=== PATIENT | male | born 1955 | race Caucasian/White ===

== ENCOUNTER → 2024-03-16 11:20 | Outpatient (REF) | payer OTHER, SELFPAY | LOC: RAD 11:20 | PROVIDERS: ATTENDING PHYSICIAN Family Medicine | DX: R29.6 Repeated falls (principal) | CPT/HCPCS: 70470; Q9967 ==

== ENCOUNTER 2024-03-27 17:18 | Emergency (ER) | payer OTHER, SELFPAY ==
[2024-03-27 17:50] VITALS: BP 131/90
[2024-03-27 18:31] LABS: % Basophils 0.3 % (0-2); % Eosinophils 0.5 % (0-6); % Immature Granulocytes 0.8 % (0-0.5); % Lymphocytes 5.3 % (20.5-51.1); % Monocytes 5.8 % (1.7-9.3); % Neutrophils 87.3 % (42.2-75.2); Absolute Immature Granulocytes 0.1 10^3/uL (0-0.05); Absolute Lymphocytes 0.5 10^3/uL (1.2-3.4); Absolute Monocytes 0.5 10^3/uL (0.1-0.6); Absolute Neutrophils 7.6 10^3/uL (1.4-6.5); Hematocrit 36.6 % (39.0-52.0); Hemoglobin 11.9 g/dL (13.0-18.0); Mean Corp Hgb Conc. 32.5 g/dL (33.0-37.0); Mean Corpuscular Hgb 30.1 pg (27.0-31.0); Mean Corpuscular Volume 92.4 fL (80.0-94.0); Mean Platelet Volume 8.9 fL (7.4-10.4); Nucleated Red Blood Cells % 0 % (-); Platelet Count 218 10^3/uL (130-400); Red Blood Cell Count 3.96 10^6/uL (4.70-6.10); Red Cell Dist. Width 12.7 % (11.5-14.5); White Blood Cell Count 8.7 10^3/uL (4.8-10.8)
[2024-03-27 18:46] LABS: ALT (SGPT) 18 U/L (0-50); AST (SGOT) 23 U/L (17-59); Albumin 4.3 g/dl (3.5-5.0); Alkaline Phosphatase 100 U/L (38-126); Blood Urea Nitrogen 15 mg/dl (9-20); Calcium 9.5 mg/dl (8.4-10.2); Carbon Dioxide 27 mmol/L (22-30); Chloride 96 mmol/L (98-107); Glucose 127 mg/dl (70-99); Sodium 136 mmol/L (135-145); Total Bilirubin 0.5 mg/dl (0.2-1.3); Total Protein 6.8 g/dl (6.3-8.2); eGFR > 60.00
--- NOTE | 2024-03-27 23:40 | ED.GENMED ---
History of Present Illness
General
Chief Complaint: Fall
Source: patient
Exam Limitations: none
Time Seen by Provider: 03/27/24 23:30
Travel History
Have you had any contact with someone who has COVID-19?: No
Do you have any symptoms of coronavirus? Fever > 100 degrees, chills, cough, shortness of breath, sore throat, loss of taste or smell, muscle aches, or headache?: No
History of Present Illness
History of Present Illness:
This is a 69 year old male that comes in with c/o fall. States that he has fallen twice today. States that this has been going on for the past 3-6 months and they haven't decided why. States that the first time he fell in the driveway and the police
came and go him up. States that the second time he fell he hit his head. States that he was on the sidewalk heading to the driveway. Denies any LOC. States that he has right sided rib pain with some SOB when he takes a deep breath. States that he
chronically has diarrhea and wears oxygen at home.. States that he has a headache and urinary burning. . Denies any fever, chills, abd pain, nausea, vomiting, dizziness.
Past History
Past History
ED Past Medical History: Arrthythmia (Atrial fib), CAD, CHF, COPD, GERD, HTN, Hypercholesterolemia, NIDDM (Diet controlled), [place] (Non-STEMI December 2019) and Other (Back pain, Headaches, Sleep apnea, IBS, Pancreatitis, Ulcers, Gastritis, Anemia, )
ED Past Surgical History: Cardiac (CABG, PTCA with stent), Cholecystectomy (January 2016), Orthopedic (Right wrist surgery), Tonsilectomy and Other (hernia repair, endovascular AAA with bilateral femoral endarterectomy and profundoplasty 07/2018)
Social History
Tobacco: Former smoker
Alcohol: None
Drug: None
Personal: Single
Living: alone
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
Family History
Family History: Hypertension
Review of Systems
Review of Systems
All Other Systems: ROS reviewed and negative except as documented in HPI and ROS
Constitutional: Reports no symptoms; Denies fever or chills
EENT: Reports no symptoms
Respiratory: Reports trouble breathing and other (Right sided rib pain); Denies cough
Cardiac: Denies chest pain
ABD/GI: Reports diarrhea (Chronic); Denies abdominal pain, nausea or vomiting
: Reports dysuria; Denies frequency or urgency
Musculoskeletal: Reports no symptoms
Skin: Reports other (abrasion both knee's)
Neurological: Reports headache; Denies dizzy
Psychiatric: Reports no symptoms
Phy Exam
General Physical Exam
General Presentation: no apparent distress
General age: appears stated age
General Skin: warm and dry
General Habitus: elderly
General Mental: alert
General Hydration: appears well hydrated
ENT Exam
ENT Exam: TM's normal, pharynx normal and neck supple
Eye Exam
Eye Exam: EOMI
Cardiovascular Exam
Cardiovascular Exam: regular rate/rhythm
Pulmonary Exam
Pulmonary Exam: no respiratory distress, no rales, no crackles, no rhonchi, no wheezing, decreased breath sounds and other (Occasional dry cough noted Right sided chest tender just below the axilla)
Musculoskeletal Exam
Musculoskeletal Exam: full ROM and other (Negative for cervical neck tenderness or shoulder discomfort. Right lateral rib tenderness. Negative for any discomfort with flexion or straightening of the knee's)
Skin Exam
Skin Exam: normal color, warm/dry, no petechia and other (Bilateral skin abrasion to both knees with contusion, Contusion noted on the right sided of the lower face next to the mouth. Old)
Psychiatric Exam
Psychiatric Exam: normal mood/affect
Course
Orders/Labs/Results
Orders:
Orders
03/27/24 17:49
CT Head W/o Iv Contrast Urgent
Comment:
Reason For Exam: fall, head strike. No loc. no thinners.
03/27/24 18:00
Electrocardiogram (*1) Urgent
Reason for Study: Fatigue / Weakness
EKG- Treatment ONCE
03/27/24 18:12
Complete Blood Count/With Diff Urgent
Comprehensive Metabolic Panel Urgent
03/27/24 23:40
Urinalysis Reflex To Culture Urgent
Date Specimen was Collected: 03/28/24
Time Specimen was Collected: 00:01
Ribs, Right 3 View W/PA Chest [CR Ribs-right 3 Vw W/pa Chest*] Urgent
Comment:
Reason For Exam: rIGHT SIDED RIB PAIN, fALL
03/28/24 00:16
Urine Microscopic Reflex Cult Urgent
Urine Culture Urgent
FLYNN Source: U
Specimen Description:
Date Specimen was Collected: 03/28/24
Time Specimen was Collected: 00:01
03/28/24 00:27
Potassium Chloride Powder [Klor-Con] 40 meq PO NOW STA
Abnormal Lab Results
03/27/24 03/28/24
18:12 00:16
RBC 3.96 L 10^6/uL
(4.70-6.10)
Hgb 11.9 L g/dL
(13.0-18.0)
Hct 36.6 L %
(39.0-52.0)
MCHC 32.5 L g/dL
(33.0-37.0)
Abs Immat Gran (auto) 0.1 H 10^3/uL
(0-0.05)
Absolute Neuts (auto) 7.6 H 10^3/uL
(1.4-6.5)
Absolute Lymphs (auto) 0.5 L 10^3/uL
(1.2-3.4)
Immature Gran % 0.8 H %
(0-0.5)
Neutrophils % 87.3 H %
(42.2-75.2)
Lymphocytes % 5.3 L %
(20.5-51.1)
Potassium 3.0 L mmol/L
(3.5-5.1)
Chloride 96 L mmol/L
(98-107)
Glucose 127 H mg/dl
(70-99)
Urine Ketones Trace A
(Negative)
Ur Occult Blood Reflex 2+ A
(Negative)
Leukocyte Esterase Rfl 2+ A
(Negative)
Urine RBC 26-30 A /HPF
(0-2)
Urine WBC (Reflex) 50-60 A /HPF
(0-5)
Urine Bacteria (Reflex) Moderate A
(Negative)
03/27/24 18:12
03/27/24 18:12
H/H slightly low (increased from prior labs), hypokalemia. Chloride low. Glucose nonfasting.
Urine positive for UTI.
Vital Signs
Initial and Last Documented VS:
Initial Vital Signs
Temp Pulse Resp BP Pulse Ox
98.2 F 100 16 131/90 95
03/27/24 17:50 03/27/24 17:50 03/27/24 17:50 03/27/24 17:50 03/27/24 17:50
Last Documented Vital Signs
Temp Pulse Resp BP Pulse Ox
98.2 F 94 20 145/98 100
03/27/24 17:50 03/28/24 00:26 03/28/24 00:26 03/28/24 00:26 03/28/24 00:26
MDM/Problems Addressed
Differential Diagnosis Includes:
Frequent falls, Contusions, Rib fracture
MDM/Problems Addressed:
This is a 69 year old male that comes in with c/o fall. States that he fell twice today. States that his falling has been going on for the past 3-6 months and they don't know why. States that the police got him up th first time and the second time
he hit his head.
Will check labs. Urine, CT head and rib series.
Back to see patient. Explained that there are no rib fracture that this is most likely a contusion. Awaiting the urine and will also get patient up with his walker and make sure patient is stable on his feet.
Patient was able to walk with his walker and was stable. Urine is positive for infection. Will treat with Monurol. Patient to follow up with his repair table operator tomorrow and he had an appointment with the PCP on Wednesday. Patient to return with any
concerns.
Chronic conditions affecting care:
Frequent falls
Acute Exacerbation and/or Progression of Chronic Illness:
Frequent falls
*Radiology
Radiology exam reviewed: radiology read reviewed (CT head-NO acute intracranial abnormality noted. Moderate Periventricular small vessel seen disease. Stable. Mild atrophy. Stable. Ribs-No acute disease of the chest. NO acute rib fractures
identified. )
*Pulse Oximetry
Patient hypoxic: no
*EKG
Interpreted by ED Provider?: NA
Rate: EKG- N/A
*Lamp Inspector Interpretation
Rate: Lamp Inspector- N/A
*Critical Care Note
Total Time (30-74mins, 75-104mins- exclusive of procedures): Not Applicable
ED Attending Note
-
Portions of this chart may have been created with voice recognition software.� Occasional wrong word or��sound alike� substitutions may have occurred due to the inherent limitations of voice recognition software.
Discharge Plan
Departure
Patient Disposition: Home (Routine Discharge)
Date of Disposition: 03/28/24
Time of Disposition: 00:59
Patient with high blood pressure during this ER visit?: Yes
Condition: Good
Covid-19: Not Applicable
Discharge Problem:
Accidental fall, Abrasion of knee, bilateral, Urinary tract infection
Instructions: Preventing falls in adults, Skin Abrasions (DC), BLOOD PRESSURE, Urinary Tract Infection - Men
Prescriptions:
No Action
fluoxetine 40 mg Capsule
80 mg PO DAILY
fluticasone propion-salmeterol [Advair Diskus] 250-50 mcg/dose Blister With Device
1 inh INHALATION R BID
ipratropium-albuterol 0.5 mg-3 mg(2.5 mg base)/3 mL Solution For Nebulization
3 ml INHALATION R QIDPRN PRN (Reason: SOB)
lidocaine 5 % Adhesive Patch,Medicated
1 patch TOPICAL DAILY
Rx Instructions:
07/02/2023, patient wears the patch 12 hrs on and 12 hrs off; patient is currently not wearing the patch.
albuterol sulfate 90 mcg/actuation Hfa Aerosol Inhaler
2 puff INHALATION R Q6HPRN PRN (Reason: SOB)
aripiprazole 10 mg Tablet
10 mg PO DAILY
tamsulosin 0.4 mg Capsule
0.4 mg PO DAILY
dicyclomine 10 mg Capsule
10 mg PO QID
magnesium chloride 64 mg Tablet,Delayed Release (Dr/Ec)
128 mg PO DAILY
atorvastatin 80 MG tablet
80 mg PO DAILY
pantoprazole 40 MG tablet,delayed release (DR/EC)
40 mg PO DAILY
budesonide 0.5 mg/2 mL Suspension For Nebulization
0.5 mg inhalation R BID Qty: 60 0RF
lorazepam 0.5 mg Tablet
0.5 mg PO DAILYPRN PRN (Reason: sleep/anxiety) Qty: 2 0RF
aspirin [Children's Aspirin] 81 mg Tablet,Chewable
81 mg PO DAILY Qty: 1 0RF
prednisone 20 mg Tablet
40 mg PO DAILY Qty: 1 0RF
Rx Instructions:
Taper by 10mg every 2 days to his baseline of 10mg
carvedilol 6.25 mg Tablet
6.25 mg PO BID Qty: 1 0RF
Rx Instructions:
dose decreased on this admission
furosemide 40 mg Tablet
40 mg PO DAILY Qty: 1 0RF
insulin aspart U-100 [Novolog FlexPen U-100 Insulin] 100 unit/mL (3 mL) Insulin Pen
4 unit SC AC Qty: 15 0RF
amoxicillin-pot clavulanate 875-125 mg tablet
1 tab PO BID Qty: 4 0RF
Rx Instructions:
for 2 more days
prednisone 10 MG tablet
10 mg PO DAILY Qty: 0 0RF
Rx Instructions:
once done with steroid taper
insulin glargine [Lantus U-100 Insulin] 100 unit/mL Solution
20 unit SC QPM Qty: 0 0RF
azithromycin 250 MG tablet
250 mg PO DAILY Qty: 0 0RF
Rx Instructions:
once done with augmentin
tramadol 50 mg Tablet
25 mg PO Q6HPRN PRN (Reason: MODERATE PAIN) Qty: 5 0RF
Activity Restrictions/Additional Instructions:
As discussed, your blood work shows that your potassium is low. You have been given oral potassium here. Please eat a daily banana. Please follow up with the family doctor for recheck. Please keep your abrasion clean with warm soapy water. You may
also apply bacitracin to the wounds. Ice to any area that is sore. Tylenol 1000mg every 6 hours for any discomfort. You also have a urinary tract infection. You have been given an antibiotic here that is a one time dose that will treat the UTI.
Please increase your water intake to 8-8oz glasses daily. IF YOU HAVE HEADACHE NOT RELIEVED BY TYLENOL, VOMITING MORE THEN TWICE OR YOU HAVE ANY OTHER CONCERNS PLEASE RETURN TO THE EMERGENCY ROOM.
Interventions
Interventions:
ED- Fall Risk Assessment Last Done: 03/28/24 00:26
*ED COVID-19 Vaccine History Last Done: 03/27/24 17:50
ED-Musculoskeletal Assessment Last Done: 03/28/24 00:26
ED- Neurological Assessment Last Done: 03/28/24 00:26
ED-Skin Assessment Last Done: 03/28/24 00:26
Discharge Date and Time
Print Language: [place] CITIZEN
[2024-03-28 00:26] VITALS: BP 145/98
[2024-03-28 00:26] LABS: Urine Albumin Trace (Neg - Trace); Urine Bilirubin Negative (Negative); Urine Character Slightly Cloudy (Clear); Urine Color Yellow; Urine Glucose Negative (Negative); Urine Ketone Trace (Negative); Urine Leukocyte 2+ (Negative); Urine Nitrite Negative (Negative); Urine Occult Blood 2+ (Negative); Urine Urobilinogen Negative (Neg - 1+)
--- NOTE | 2024-03-28 00:28 | EDRN ---
patient brought back from waiting room, apologized for long wait, re-checked patients vitals, patient also on o2 normally, replaced o2 tank as it was almost empty, assisted patient to going to the bathroom to collect urine specimen which was emptied
[2024-03-28 00:48] LABS: Urine Red Blood Cell 26-30 /HPF (0-2); Urine White Cell 50-60 /HPF (0-5)
[2024-03-28 00:49] LABS: Urine Bacteria Moderate (Negative)
--- NOTE | 2024-03-28 01:00 | EDRN ---
Patient was able to ambulate with the use of a walker which is what he dose at home, reports slight weakness with this however that is normal for him, BRENTON Storey aware, patient to be discharged home.
[2024-03-28] MEDS: MONUROL 3 GM PO (01:10)
[2024-03-28] MEDS: KLOR-CON 40 MEQ PO (01:10)
== END 2024-03-28 01:39 | disposition home or self-care (01) ==
LOC: EMR 17:18
PROVIDERS: Clinical Nurse Specialist Family Health; Emergency Medicine; EMERGENCY PHYSICIAN Emergency Medicine; FAMILY PHYSICIAN Family Medicine
DX: S00.83XA Contusion of other part of head, initial encounter (principal); N39.0 Urinary tract infection, site not specified; S80.211A Abrasion, right knee, initial encounter; S80.212A Abrasion, left knee, initial encounter; R51.9 Headache, unspecified; R30.0 Dysuria; R53.1 Weakness; R19.7 Diarrhea, unspecified; R07.81 Pleurodynia; W18.30XA Fall on same level, unspecified, initial encounter; Y93.01 Activity, walking, marching and hiking; Y92.480 Sidewalk as the place of occurrence of the external cause; E87.6 Hypokalemia; I11.0 Hypertensive heart disease with heart failure; I50.9 Heart failure, unspecified; I48.91 Unspecified atrial fibrillation; I25.10 Atherosclerotic heart disease of native coronary artery without angina pectoris; G47.30 Sleep apnea, unspecified; E78.00 Pure hypercholesterolemia, unspecified; E11.9 Type 2 diabetes mellitus without complications; J44.9 Chronic obstructive pulmonary disease, unspecified; K21.9 Gastro-esophageal reflux disease without esophagitis; K58.0 Irritable bowel syndrome with diarrhea; D64.9 Anemia, unspecified; I25.2 Old myocardial infarction; Z99.81 Dependence on supplemental oxygen; R29.6 Repeated falls; Z95.1 Presence of aortocoronary bypass graft; Z95.5 Presence of coronary angioplasty implant and graft; Z87.11 Personal history of peptic ulcer disease; Z87.891 Personal history of nicotine dependence; Z90.49 Acquired absence of other specified parts of digestive tract
CPT/HCPCS: 99285; 70450; 71101; 80053; 81003; 81015; 85025; 87077; 87086; 93005

== ENCOUNTER → 2024-07-28 14:18 | Outpatient (REF) | payer OTHER, SELFPAY | LOC: PAVMRI 14:18 | PROVIDERS: ATTENDING PHYSICIAN Specialist; FAMILY PHYSICIAN Family Medicine | DX: R42 Dizziness and giddiness (principal); R29.6 Repeated falls | CPT/HCPCS: 70544; 70547; 70551 ==

== ENCOUNTER → 2024-08-25 10:10 | Outpatient (REF) | payer OTHER, SELFPAY | LOC: RAD 10:10 | PROVIDERS: ATTENDING PHYSICIAN Specialist; FAMILY PHYSICIAN Internal Medicine Critical Care Medicine | DX: I65.21 Occlusion and stenosis of right carotid artery (principal) | CPT/HCPCS: 76770; 93880; 93922; 93925 ==

== ENCOUNTER 2024-12-05 11:38 | Inpatient (IN) | payer OTHER, SELFPAY ==
[2024-12-05] VITALS (11 sets, daily range): BP systolic 119–182; BP diastolic 83–99; PULSE 97; O2SAT 100
--- NOTE | 2024-12-05 07:06 | ED.GENMED ---
History of Present Illness
General
Chief Complaint: Fall
Source: patient and ambulance crew
Exam Limitations: none
Time Seen by Provider: 12/05/24 07:04
Nursing documentation reviewed up to this point in time: agreed with
History of Present Illness
History of Present Illness:
69-year-old male with history as documented notable for hypertension, hyperlipidemia, CAD, CHF, atrial fibrillation, COPD who presents to the emergency department from home for evaluation after a fall. Patient reports that he got up to go to the
bathroom this morning and lost his balance and fell. He did think he hit his head but did not pass out he says. He complains of pain in his right elbow but denies any other serious injuries. He says he was too weak to stand up and called EMS
initially for a lift assist�per EMS report when they lifted him he was too weak to even stand and so they brought him to the ER. He does admit he has been feeling more weak than usual recently. He says he had another fall 2 days ago in the kitchen
but no serious injuries at that point and his [id number] was able to help him up. He has not noticed any fever, cough, breathing troubles, abdominal pains, urinary issues. He says he is on aspirin but no other blood thinners.
Past History
Past History
ED Past Medical History: Arrthythmia (Atrial fib), CAD, CHF, COPD, GERD, HTN, Hypercholesterolemia, NIDDM (Diet controlled), [place] (Non-STEMI December 2019) and Other (Back pain, Headaches, Sleep apnea, IBS, Pancreatitis, Ulcers, Gastritis, Anemia, )
ED Past Surgical History: Cardiac (CABG, PTCA with stent), Cholecystectomy (January 2016), Orthopedic (Right wrist surgery), Tonsilectomy and Other (hernia repair, endovascular AAA with bilateral femoral endarterectomy and profundoplasty 07/2018)
Social History
Tobacco: Former smoker
Alcohol: None
Drug: None
Personal: Single
Living: alone
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
Family History
Family History: Hypertension
Review of Systems
Review of Systems
All Other Systems: ROS reviewed and negative except as documented in HPI and ROS
Constitutional: Reports fatigue; Denies fever or chills
Cardiac: Denies chest pain or palpitations
ABD/GI: Denies abdominal pain, nausea or vomiting
: Denies dysuria or flank pain
Musculoskeletal: Reports joint pain (Right elbow pain); Denies neck pain or back pain
Neurological: Denies headache, weakness or numbness
Phy Exam
Physical Exam
Physical Exam:
General: Awake, alert, oriented x3; no acute distress
Head: Normocephalic, atraumatic
Eyes: Conjunctiva normal, EOMI, pupils equal round and reactive to light bilaterally
Throat: Airway intact, handling secretions
Neck: Trachea midline, mild paraspinal tenderness but no midline cervical tenderness
Back: No signs of trauma to the back or flank and no tenderness of the thoracic or lumbar spine
Lungs: Clear to auscultation bilaterally, no wheezing, rales, rhonchi
Heart: Tachycardia with regular rhythm, no murmurs, gallops, or rubs; no chest wall tenderness
Abd: Soft, non distended, nontender
Neuro: No gross deficits�although he is generally weak strength is symmetric in all extremities
Skin: Minor bruise to the right elbow
Extremities: Bruise to the right elbow and mild tenderness along the lateral aspect of the elbow but good range of motion, no joint effusion; rest of extremities are atraumatic, nontender, moving comfortably and he has good pulses throughout
Scores
Heart Failure Risk
Heart Failure Risk Score: Not Applicable
Heart Score for Chest Pain Patients
STEMI patient?: Not applicable
Withdrawal Assessment of Alcohol
Withdrawal Assessment Completed?: Not applicable
Sepsis
Sepsis Screening
Sepsis Assessment: Severe Sepsis
Sepsis Screening: Lactate >2mmol/L
Sepsis Screen
Sepsis Screen: Severe Sepsis
Date: 12/05/24
Time: 09:27
Course
Orders/Labs/Results
Orders:
Orders
12/05/24 07:02
Electrocardiogram (*1) Urgent
Reason for Study: Fatigue / Weakness
EKG- Treatment ONCE
12/05/24 07:04
CT Cervical Spine W/o Iv Contr Urgent
Comment:
Reason For Exam: fall with headstrike
CT Head W/o Iv Contrast Urgent
Comment:
Reason For Exam: fall with headstrike
12/05/24 07:05
0.9% Sodium Chloride 1000 ml [Nss] 1,000 ml IV BOLUS
CR Elbow - Right Min 3 Views Urgent
Comment:
Reason For Exam: right elbow pain s/p fall
12/05/24 07:13
0.9% Sodium Chloride 250 ml [Nss] 250 ml IV BOLUS
12/05/24 07:14
CMP [Comprehensive Metabolic Panel] Urgent
CPK [Creatine Phosphokinase] Urgent
Complete Blood Count/With Diff Urgent
Urinalysis Reflex To Culture Urgent
Date Specimen was Collected: 12/05/24
Time Specimen was Collected: 07:02
Urine Microscopic Reflex Cult Urgent
Urine Culture Urgent
FLYNN Source: U
Specimen Description:
Date Specimen was Collected: 12/05/24
Time Specimen was Collected: 07:02
CR Chest Portable - 1 View Urgent
Comment:
Reason For Exam: weakness, eval for pna
Reason Study Needs to be Portable: Unable to Transport
12/05/24 07:25
COVID-19 Antigen Urgent
Source: Nasal Swab
Lactate Level [Lactic Acid] Urgent
Influenza A+B Rapid Molecular Urgent
FLYNN Source: Nasal Swab
Specimen Description:
12/05/24 07:34
Blood Culture Q30M
FLYNN Source: Blood/Venous
Specimen Description:
12/05/24 07:52
Blood Culture Q30M
FLYNN Source: Blood/Venous
Specimen Description:
12/05/24 08:46
CefTRIAXone [Rocephin] 1,000 mg IV NOW STA
12/05/24 08:48
0.9% Sodium Chloride 250 ml [Nss] 250 ml IV BOLUS
12/05/24 09:23
0.9% Sodium Chloride 250 ml [Nss] 250 ml IV BOLUS
Abnormal Lab Results
12/05/24 12/05/24
07:14 07:25
WBC 14.5 H 10^3/uL
(4.8-10.8)
RBC 4.64 L 10^6/uL
(4.70-6.10)
MCHC 32.2 L g/dL
(33.0-37.0)
Abs Immat Gran (auto) 0.2 H 10^3/uL
(0-0.05)
Absolute Neuts (auto) 11.8 H 10^3/uL
(1.4-6.5)
Absolute Lymphs (auto) 0.8 L 10^3/uL
(1.2-3.4)
Absolute Monos (auto) 1.7 H 10^3/uL
(0.1-0.6)
Immature Gran % 1.5 H %
(0-0.5)
Neutrophils % 81.1 H %
(42.2-75.2)
Lymphocytes % 5.2 L %
(20.5-51.1)
Monocytes % 11.8 H %
(1.7-9.3)
Chloride 91 L mmol/L
(98-107)
Carbon Dioxide 31 H mmol/L
(22-30)
BUN 39 H mg/dl
(9-20)
Glucose 191 H mg/dl
(70-99)
Lactic Acid 2.4 H mmol/L
(0.7-2.0)
Ur Occult Blood Reflex 3+ A
(Negative)
Leukocyte Esterase Rfl 3+ A
(Negative)
Urine RBC 3-6 A /HPF
(0-2)
Urine WBC (Reflex) >100 A /HPF
(0-5)
Urine Bacteria (Reflex) Moderate A
(Negative)
Urine Albumin (Reflex) 2+ A
(Neg - Trace)
12/05/24 07:14
12/05/24 07:14
Vital Signs
Initial and Last Documented VS:
Initial Vital Signs
Pulse Resp BP Pulse Ox
120 22 143/94 99
12/05/24 06:58 12/05/24 06:58 12/05/24 06:58 12/05/24 06:58
Last Documented Vital Signs
Pulse Resp BP Pulse Ox
101 22 162/87 99
12/05/24 09:00 12/05/24 06:58 12/05/24 09:00 12/05/24 09:00
MDM/Problems Addressed
Differential Diagnosis Includes:
--Must rule out traumatic injury including fracture of the arm, head injury, cervical spine injury, etc
--Differential diagnosis for his increased weakness and tachycardia includes infection such as UTI, viral syndrome, pneumonia; anemia; electrolyte derangement, dehydration; dysrhythmia, CHF, etc
MDM/Problems Addressed:
69-year-old male presents for evaluation after a fall he is having increased weakness over the past few days. Injured his right elbow slightly today but denies any other serious injuries; he did have a minor head strike but no loss of
consciousness. He is on aspirin but no other blood thinners. Tachycardic with respiratory rate low 20s, afebrile, normal pulse ox, normotensive. Physical exam as above. Regarding trauma will check CT head and cervical spine, x-ray of the elbow.
For his weakness will plan to check labs including a CBC and a CMP, urinalysis, viral swabs, chest x-ray. Will check EKG. He does appear dry will provide some cautious fluids given CHF history. Reassess after the above.
Labs reviewed: CBC shows leukocytosis to 14.5 with predominant neutrophils. CMP shows mild renal insufficiency with a creatinine of 1.2 from baseline of 0.7. His urinalysis is positive for infection. Treat with antibiotics. Concern for sepsis.
Lactate marginally elevated 2.4. Fluids in progress. Given history of CHF and chronic respiratory failure/oxygen requirement will proceed with gentle fluids rather than aggressive 30 cc/kg bolus given lactate less than [address]
head and cervical spine negative for any acute pathology, x-ray of the elbow reviewed by me shows no acute fracture. Will plan to admit with concern for sepsis secondary to UTI causing his significant generalized weakness. Case discussed with
hospitalist.
Patient with 500 cc of fluid thus far clinical reassessment oxygen saturation 99%, respiratory rate 20, heart rate down to the 90s�lungs sound clear no edema does not appear to be volume overloaded. Continue with cautious fluid resuscitation.
Discussed with hospitalist to update.
Chronic conditions affecting care:
Congestive heart failure
*Radiology
Radiology exam reviewed: radiology read reviewed
*Pulse Oximetry
Patient hypoxic: no
*EKG
Interpreted by ED Provider?: Yes
Comparison EKG: changes noted (Heart rate increased)
Heart Rate: 113
Rate: tachycardiac
Rhythm: sinus
[place]: normal axis
QRS Pattern: right bundle branch block
Ischemia: T-wave inversion (Inferior and anterior/lateral T wave inversion similar to prior)
*Critical Care Note
Total Time (30-74mins, 75-104mins- exclusive of procedures): Not Applicable
Data Reviewed
Review of Other/Old Records Reveals: Labs and Records
Source: patient, records and ambulance crew
Patient Management
Social determinants of health affecting care: Living situation (Lives alone)
Discussion with other providers: Hospitalist (Discussed with hospitalist)
Escalation/DeEscalation of care consider admission/obs:
Admission indicated
ED Attending Note
-
Portions of this chart may have been created with voice recognition software.� Occasional wrong word or��sound alike� substitutions may have occurred due to the inherent limitations of voice recognition software.
Discharge Plan
Departure
Patient Disposition: Admit
Date of Disposition: 12/05/24
Time of Disposition: 08:48
Admit to doctor: Tucker
Presentation/result/management discussed w/ accepting MD/DO: Hospitalist
Discharge Problem:
Acute UTI, Sepsis, Contusion of elbow
Prescriptions:
No Action
ipratropium-albuterol 0.5 mg-3 mg(2.5 mg base)/3 mL Solution For Nebulization
3 ml INHALATION R QIDPRN PRN (Reason: SOB)
albuterol sulfate 90 mcg/actuation Hfa Aerosol Inhaler
2 puff INHALATION R Q6HPRN PRN (Reason: SOB)
tamsulosin 0.4 mg Capsule
0.4 mg PO DAILY
dicyclomine 10 mg Capsule
10 mg PO QID
atorvastatin 80 MG tablet
80 mg PO DAILY
pantoprazole 40 MG tablet,delayed release (DR/EC)
40 mg PO DAILY
budesonide 0.5 mg/2 mL Suspension For Nebulization
0.5 mg inhalation R BID Qty: 60 0RF
lorazepam 0.5 mg Tablet
0.5 mg PO DAILYPRN PRN (Reason: sleep/anxiety) Qty: 2 0RF
aspirin [Children's Aspirin] 81 mg Tablet,Chewable
81 mg PO DAILY Qty: 1 0RF
furosemide 40 mg Tablet
40 mg PO DAILY Qty: 1 0RF
prednisone 10 MG tablet
10 mg PO DAILY Qty: 0 0RF
Rx Instructions:
once done with steroid taper
azithromycin 250 MG tablet
250 mg PO DAILY Qty: 0 0RF
Rx Instructions:
once done with augmentin
insulin glargine [Lantus U-100 Insulin] 100 unit/mL solution
7 unit SC QPM
trazodone 50 mg tablet
50 mg PO HSPRN PRN (Reason: sleep)
potassium chloride 20 mEq tablet,ER particles/crystals
20 meq PO DAILY
ascorbic acid (vitamin C) [Vitamin C] 500 mg tablet
500 mg PO DAILY
nitroglycerin [Nitrostat] 0.4 mg Tablet, Sublingual
0.4 mg SUBLINGUAL [id number] PRN (Reason: chest pain)
sertraline 50 mg tablet
50 mg PO DAILY
midodrine 10 mg tablet
10 mg PO TID
bupropion HCl 300 mg tablet extended release 24 hr
300 mg PO DAILY
Referrals:
Sid Willis DO [Family Provider] -
Interventions
Interventions:
*Risk Screen - Suicide Last Done: 12/05/24 07:09
*Neglect/Abuse Screening Last Done: 12/05/24 07:09
ED- Fall Risk Assessment Last Done: 12/05/24 07:08
*ED COVID-19 Vaccine History Last Done: 12/05/24 07:04
ED-Musculoskeletal Assessment Last Done: 12/05/24 07:10
ED- Neurological Assessment Last Done: 12/05/24 07:04
ED-Skin Assessment Last Done: 12/05/24 07:10
Discharge Date and Time
Print Language: MALAY
[2024-12-05] MEDS: NSS 250 IV ×3 (07:28→09:29)
[2024-12-05 07:35] LABS: % Basophils 0.3 % (0-2); % Eosinophils 0.1 % (0-6); % Immature Granulocytes 1.5 % (0-0.5); % Lymphocytes 5.2 % (20.5-51.1); % Monocytes 11.8 % (1.7-9.3); % Neutrophils 81.1 % (42.2-75.2); Absolute Basophils 0.1 10^3/uL (0-0.2); Absolute Immature Granulocytes 0.2 10^3/uL (0-0.05); Absolute Lymphocytes 0.8 10^3/uL (1.2-3.4); Absolute Monocytes 1.7 10^3/uL (0.1-0.6); Absolute Neutrophils 11.8 10^3/uL (1.4-6.5); Hematocrit 42.8 % (39.0-52.0); Hemoglobin 13.8 g/dL (13.0-18.0); Mean Corp Hgb Conc. 32.2 g/dL (33.0-37.0); Mean Corpuscular Hgb 29.7 pg (27.0-31.0); Mean Corpuscular Volume 92.2 fL (80.0-94.0); Mean Platelet Volume 9.4 fL (7.4-10.4); Nucleated Red Blood Cells % 0 % (-); Platelet Count 277 10^3/uL (130-400); Red Blood Cell Count 4.64 10^6/uL (4.70-6.10); White Blood Cell Count 14.5 10^3/uL (4.8-10.8)
[2024-12-05 07:47] LABS: ALT (SGPT) 32 U/L (0-50); AST (SGOT) 29 U/L (17-59); Alkaline Phosphatase 112 U/L (38-126); Blood Urea Nitrogen 39 mg/dl (9-20); Calcium 9.6 mg/dl (8.4-10.2); Carbon Dioxide 31 mmol/L (22-30); Chloride 91 mmol/L (98-107); Creatine Phosphokinase 143 U/L (55-170); Glucose 191 mg/dl (70-99); Potassium 4.6 mmol/L (3.5-5.1); Sodium 136 mmol/L (135-145); Total Bilirubin 0.8 mg/dl (0.2-1.3); Total Protein 7.8 g/dl (6.3-8.2); eGFR > 60.00
[2024-12-05 07:48] LABS: Lactic Acid 2.4 mmol/L (0.7-2.0)
[2024-12-05 07:58] LABS: COVID-19 Antigen Negative (Negative)
[2024-12-05 08:10] LABS: Urine Albumin 2+ (Neg - Trace); Urine Bilirubin Negative (Negative); Urine Character Cloudy (Clear); Urine Color Yellow; Urine Glucose Negative (Negative); Urine Ketone Negative (Negative); Urine Leukocyte 3+ (Negative); Urine Nitrite Negative (Negative); Urine Occult Blood 3+ (Negative); Urine Specific Gravity 1.005 (<1.030); Urine Urobilinogen Negative (Neg - 1+)
[2024-12-05 08:42] LABS: Urine Bacteria Moderate (Negative); Urine Squamous Cell 0-2 /LPF (Few); Urine White Cell >100 /HPF (0-5)
[2024-12-05] MEDS: ROCEPHIN 1000 MG IV (09:07)
--- NOTE | 2024-12-05 09:19 | HPS.HSE ---
Family Physician
-
Family Physician: Sid Willis,
Chief Complaint
-
Generalized Weakness, Fall
History of Present Illness
69 y/o male with past medical history of falls, hypertension, hyperlipidemia, CAD, CHF, atrial fibrillation, COPD and additional history as documented in the Assessment/Plan section below, presented after falling at home this morning. Patient says
he got up to go to the bathroom earlier this morning, he then realized he had to go oyster picker his urinal (which was on the floor), and while trying to oyster picker the urinal, he fell, hitting his head and, his right shoulder, right arm and right hip. He
denied any new dizziness, chest pain, palpitation, shortness of breath surrounding the timing of the fall, and he also denied any numbness or tingling. He denied any loss of consciousness.
Medical History
Past Medical History
Past Medical History: Reports Other (As per HPI above)
Past Surgical History: Reports Other
Additional Past Surgical History:
Cardiac (CABG, PTCA with stent), Cholecystectomy (January 2016), Orthopedic (Right wrist surgery), Tonsilectomy and Other (hernia repair, endovascular AAA with bilateral femoral endarterectomy and profundoplasty 07/2018)
Social History
Tobacco: Former Smoker
Alcohol: Former
Drug: None
Family History
Family History: Cancer and Other (Heart Disease)
Allergies / Home Medications
Allergies reflects when Allergies were last updated in [facility].
Home Medications with original date entered in [facility]
Allergy/Medication List:
Allergies
Allergy/AdvReac Type Severity Reaction Status Date / Time
lisinopril Allergy throat Verified 03/27/24 17:57
closes
Home Medications
albuterol sulfate 90 mcg/actuation aerosol inhaler 2 puff inhalation R Q6HPRN PRN SOB 07/02/23
atorvastatin 80 mg tablet 80 mg PO DAILY High cholesterol 07/02/23
dicyclomine 10 mg capsule 10 mg PO QID Gastrointestinal Issue 07/02/23
ipratropium 0.5 mg-albuterol 3 mg (2.5 mg base)/3 mL nebulization soln 3 ml inhalation R QIDPRN PRN SOB 07/02/23
pantoprazole 40 mg tablet,delayed release 40 mg PO DAILY Gastrointestinal issue 07/02/23
tamsulosin 0.4 mg capsule 0.4 mg PO DAILY BPH 07/02/23
budesonide 0.5 mg/2 mL suspension for nebulization 0.5 mg (2 mL) inhalation R BID copd #60 mL 07/06/23
lorazepam 0.5 mg tablet 0.5 mg PO DAILYPRN PRN sleep/anxiety #2 tabs 07/07/23
aspirin 81 mg chewable tablet (Children's Aspirin) 81 mg PO DAILY #1 tab 09/10/23
azithromycin 250 mg tablet 250 mg PO DAILY Infection #0 tabs 09/10/23
furosemide 40 mg tablet 40 mg PO DAILY #1 tab 09/10/23
prednisone 10 mg tablet 10 mg PO DAILY Anti-inflammatory #0 tabs 09/10/23
ascorbic acid (vitamin C) 500 mg tablet (Vitamin C) 500 mg PO DAILY 12/05/24
bupropion HCl 300 mg 24 hr tablet, extended release 300 mg PO DAILY 12/05/24
insulin glargine 100 unit/mL subcutaneous solution (Lantus U-100 Insulin) 7 unit SC QPM 12/05/24
midodrine 10 mg tablet 10 mg PO TID 12/05/24
nitroglycerin 0.4 mg sublingual tablet (Nitrostat) 0.4 mg sublingual [id number] PRN chest pain 12/05/24
potassium chloride 20 mEq tablet,extended release(part/cryst) 20 meq PO DAILY 12/05/24
sertraline 50 mg tablet 50 mg PO DAILY 12/05/24
trazodone 50 mg tablet 50 mg PO HSPRN PRN sleep 12/05/24
Review of Systems
-
A 12 point ROS was completed and negative except as noted: Yes
Physical Exam
Vital Signs
Vital Signs
Pulse Resp BP Pulse Ox
101 22 162/87 99
12/05/24 09:00 12/05/24 06:58 12/05/24 09:00 12/05/24 09:00
Physical Exam
General: No Apparent Distress, Comfortable and Conversant
HEENT: NormoCephalic and Moist mucous membranes
Respiratory: Decreased Breath Sounds
Cardiac: S1/S2 and Regular Rhythm
GI: Soft, Non Tender and Normal Bowel Sounds
Musculoskeletal: No Cyanosis
Skin: Warm and Dry
Neuro: Awake, Alert, AO x 3, No Motor Deficits, Nonfocal/grossly intact, Cranial Nerves Intact and No Sensory Deficits
Psych: Calm and Intact Judgment/Insight
Laboratory Results
-
12/05/24 07:14
12/05/24 07:14
Laboratory Results
Lactic Acid 2.4 mmol/L (0.7-2.0) H 12/05/24 07:25
Total Bilirubin 0.8 mg/dl (0.2-1.3) 12/05/24 07:14
AST 29 U/L (17-59) 12/05/24 07:14
ALT 32 U/L (0-50) 12/05/24 07:14
Alkaline Phosphatase 112 U/L (38-126) 12/05/24 07:14
Impression/Plan
-
Assessment/Plan
Presentation with multiple falls and severe weakness
Sepsis Secondary to UTI
UTI
Immunsuppressed State Due to Chronic Prednisone Use
Leukocytosis
Tachycardia
Lactic Acidosis
-CT Head and CT C-Spine without any acute fracture
-Patient does complain of right hip pain will check CT RT Hip
-Follow-up on elbow and chest x-rays
-Continue Rocephin
-Patient is already on chronic Azithromycin outpatient
-IV fluids boluses given in 250 cc increments (given patient's history of congestive heart failure) by ER provider, patient has received several 250 cc IV fluid boluses, currently 1 Liter NSS is infusing at 250 cc/hr and should be completed by ~3 pm
-Follow blood cultures
-Follow urine cultures
-CK normal -- no rhabdomyolysis
History of Severe COPD with acute respiratory failure
-Currently on patient's home baseline oxygen of nasal cannula 3 L
-Followed by Dr. Landeros outpatient
-Continue patient's outpatient prednisone, Azithromycin, bronchodilators and ICS
Chronic CHFmrEF
-Patient receiving IV fluids for sepsis today
-Will resume Lasix on 12/06/24
-Daily weights
-I's and O's
Coronary Artery Disease
-s/p CABG 1999 at [facility] with GAR to LAD and free JONO Y graft from GAR to OM
-NSTEMI 12/2019 with peak trop 0.4. cath showed progression of [place] CAD however patient bypass grafts 12/2019
-Continue Aspirin 81 mg daily and Atorvastatin 80 mg daily
Paroxysmal atrial flutter s/p ablation in 2018
Paroxysmal atrial fibrillation
-Not chronically anticoagulated due to patient's choice and low burden of atrial arrhythmia
-Monitor on tele given infection and sepsis
History of NSVT
Type 2 Diabetes Mellitus
- Insulin sliding scale for now
- Will consider resuming patient's home Insulin Regimen depending on blood glucose trends
Hypertension
-Monitor BP via vital signs
Hyperlipidemia
-Continue home Atorvastatin
History of Smoking
Chronic right bundle-branch block
History of duodenal ulcer with microperforation in 2018
h/o daily ETOH
GERD.
Anxiety
Overweight
L1 vertebral fracture.
PVD with History of endovascular AAA repair and bilateral femoral artery endarterectomy and profundoplasty 07/2018
DVT Prophylaxis: Lovenox
Code Status: DNR/DNI (at the time of admission on 12/05/24, patient clearly stated he is a DNR and DNI, and he fully understood what that meant)
--- NOTE | 2024-12-05 09:22 | PHANOTE ---
Med Rec Note:
Pt gets prefilled pill packs from [facility] pharmacy and is unsure of names and dosages. Used Dr Nguyen and ECW to compile med rec.
[2024-12-05] MEDS: NSS 1000 IV (10:38)
[2024-12-05 11:17] LABS: Glucose - Point of Care 139 mg/dl (70-99)
[2024-12-05] MEDS: NOVOLOG FLEXPEN-LOW RESISTANCE SC ×2 (11:18→18:20)
[2024-12-05 11:59] LABS: Lactic Acid 0.9 mmol/L (0.7-2.0)
--- NOTE | 2024-12-05 12:12 | CM ---
Addendum entered by Veronica Prieto 12/05/24 14:58:
Per [facility], clinically accepted pending bed availability and auth
Original Note:
ED CM received call from sister/BRENNON Nolan- requesting SNF be arranged on dc
She has outreached to [facility] for referral already
Pt resides with his sister and brother in-law in their 1SH with 2 ARUN
Pt typically ambulates short distances with use of a WW
Requires assistance for longer distances
Pt is on 3L O2 baseline through [employer]
Sister has noted steady decline these past months
Pt now rarely leaving his bed
He is no longer bathing himself or changing his clothing due to weakness
Pt is incontinent now and using briefs for management
She notes he is AxO with occasional forgetfulness
PCP- iSd Willis
PT/OT orders requested
PASRR completed and SNF referral sent to [facility]
Pt will require auth
Discharge Disposition- anticipate SNF pending auth
[2024-12-05] MEDS: PULMICORT INH (14:33)
[2024-12-05] MEDS: LOW STRENGTH ASPIRIN 81 MG PO (14:49)
[2024-12-05] MEDS: LIPITOR 80 MG PO (14:49)
[2024-12-05] MEDS: DELTASONE 10 MG PO (14:49)
[2024-12-05] MEDS: ZOLOFT 50 MG PO (14:49)
[2024-12-05] MEDS: PROTONIX 40 MG PO (14:49)
[2024-12-05] MEDS: KCL 20 MEQ PO (14:49)
[2024-12-05] MEDS: ZITHROMAX 250 MG PO (14:49)
[2024-12-05] MEDS: FLOMAX 0.4 MG PO (14:49)
[2024-12-05] MEDS: BENTYL PO (14:50)
[2024-12-05] MEDS: WELLBUTRIN XL (24 hour extended release) 300 MG PO (14:50)
[2024-12-05 16:28] LABS: Glucose - Point of Care 150 mg/dl (70-99)
[2024-12-05] MEDS: LOVENOX 40 MG SC (18:21)
[2024-12-05] MEDS: BENTYL 10 MG PO ×2 (18:21→21:54)
[2024-12-05] MEDS: PULMICORT 0.5 MG INH (20:27)
[2024-12-05 21:21] LABS: Glucose - Point of Care 298 mg/dl (70-99)
[2024-12-05] MEDS: TYLENOL 650 MG PO (22:24)
[2024-12-05] MEDS: DESYREL 50 MG PO (22:24)
[2024-12-06 03:00] VITALS: BP 148/96
[2024-12-06 05:12] VITALS: BMI 26.0
[2024-12-06 07:25] LABS: Glucose - Point of Care 150 mg/dl (70-99)
[2024-12-06 07:49] VITALS: BP 174/103
[2024-12-06] MEDS: PULMICORT 0.5 MG INH (07:59)
[2024-12-06] MEDS: NOVOLOG FLEXPEN-LOW RESISTANCE 1 UNITS SC (08:50)
[2024-12-06] MEDS: LIPITOR 80 MG PO (08:51)
[2024-12-06] MEDS: PROTONIX 40 MG PO (08:51)
[2024-12-06] MEDS: ZOLOFT 50 MG PO (08:51)
[2024-12-06] MEDS: ZITHROMAX 250 MG PO (08:52)
[2024-12-06] MEDS: BENTYL 10 MG PO ×2 (08:52→12:42)
[2024-12-06] MEDS: KCL 20 MEQ PO (08:52)
[2024-12-06] MEDS: VITAMIN C 500 MG PO (08:52)
[2024-12-06] MEDS: DELTASONE 10 MG PO (08:53)
[2024-12-06] MEDS: FLOMAX 0.4 MG PO (08:53)
[2024-12-06] MEDS: WELLBUTRIN XL (24 hour extended release) 300 MG PO (08:54)
[2024-12-06] MEDS: LOW STRENGTH ASPIRIN 81 MG PO (08:54)
[2024-12-06 09:17] LABS: % Basophils 0.5 % (0-2); % Eosinophils 2.9 % (0-6); % Immature Granulocytes 1.2 % (0-0.5); % Lymphocytes 10.4 % (20.5-51.1); % Monocytes 13.7 % (1.7-9.3); % Neutrophils 71.3 % (42.2-75.2); Absolute Basophils 0.1 10^3/uL (0-0.2); Absolute Eosinophils 0.3 10^3/uL (0-0.7); Absolute Immature Granulocytes 0.1 10^3/uL (0-0.05); Absolute Monocytes 1.3 10^3/uL (0.1-0.6); Absolute Neutrophils 6.5 10^3/uL (1.4-6.5); Hematocrit 38.9 % (39.0-52.0); Hemoglobin 12.4 g/dL (13.0-18.0); Mean Corp Hgb Conc. 31.9 g/dL (33.0-37.0); Mean Corpuscular Hgb 29.5 pg (27.0-31.0); Mean Corpuscular Volume 92.4 fL (80.0-94.0); Mean Platelet Volume 9.3 fL (7.4-10.4); Nucleated Red Blood Cells % 0 % (-); Platelet Count 227 10^3/uL (130-400); Red Blood Cell Count 4.21 10^6/uL (4.70-6.10); Red Cell Dist. Width 13.1 % (11.5-14.5); White Blood Cell Count 9.1 10^3/uL (4.8-10.8)
[2024-12-06 09:47] LABS: Blood Urea Nitrogen 28 mg/dl (9-20); Calcium 9.1 mg/dl (8.4-10.2); Carbon Dioxide 31 mmol/L (22-30); Chloride 99 mmol/L (98-107); Estimated Creatinine Clearance 83 ml/min; Glucose 156 mg/dl (70-99); Magnesium 1.9 mg/dl (1.6-2.3); Potassium 3.8 mmol/L (3.5-5.1); Sodium 139 mmol/L (135-145); eGFR > 60.00
[2024-12-06] MEDS: STERILE WATER FOR INJECTION 10 ML IV (10:10)
[2024-12-06] MEDS: ROCEPHIN 1000 MG IV (10:10)
[2024-12-06 10:36] VITALS: BP 150/99; PULSE 97; O2SAT 99
[2024-12-06 10:57] LABS: Glycohemoglobin (HgbA1c) 8.1 % (4.0-5.6)
[2024-12-06 11:25] LABS: Glucose - Point of Care 293 mg/dl (70-99)
[2024-12-06 11:27] VITALS: BP 152/92
[2024-12-06] MEDS: NOVOLOG FLEXPEN-LOW RESISTANCE 3 UNITS SC (12:42)
--- NOTE | 2024-12-06 13:32 | W.PN.HOSP.TC ---
Today's Communication/Plan
-
Discharge today
Assessment / Plan
Assessment / Plan
Physical Exam
General: No Apparent Distress, Comfortable and Conversant
HEENT: Normocephalic and Moist mucous membranes
Respiratory: Decreased Breath Sounds
Cardiac: S1/S2 and Regular Rhythm
GI: Soft, Non Tender and Normal Bowel Sounds. No CVA tenderness.
Musculoskeletal: No Cyanosis
Skin: Warm and Dry
Neuro: Awake, Alert, AO x 3, No Motor Deficits, Nonfocal/grossly intact, Cranial Nerves Intact and No Sensory Deficits
Psych: Calm and Intact Judgment/Insight
Assessment/Plan
Presentation with multiple falls and severe weakness
Sepsis Secondary to UTI
UTI
Immunsuppressed State Due to Chronic Prednisone Use
Leukocytosis
Tachycardia
Lactic Acidosis
-CT Head and CT C-Spine without any acute fracture
-Right elbow x-ray without any abnormalities
-Patient did complain of right hip pain --> CT imaging showed no fracture
-Chest x-ray with no acute cardiopulmonary process
-Urine culture growing 30,000 CFU/ML Enterococcus species
-Continue Rocephin while inpatient; on discharge will transition to Cefdinir 300 mg Q12H for 8 more days (starting 12/07/23) and Amoxicillin 500 mg every 8 hours or 875 mg every 12 hours for 5 days
-Patient is already on chronic Azithromycin outpatient
-IV fluids boluses given with improvement
-Follow blood cultures -- no growth to date
-CK normal -- no rhabdomyolysis
History of Severe COPD with acute respiratory failure
-Currently on patient's home baseline oxygen of nasal cannula 3 L
-Followed by Dr. Landeros outpatient
-Continue patient's outpatient prednisone, Azithromycin, bronchodilators and ICS
Chronic CHFmrEF
-Patient received IV fluids for sepsis
-Resume daily Lasix on 12/07/24
-Daily weights
-I's and O's
Coronary Artery Disease
-s/p CABG 1998 at [facility] with GAR to LAD and free JONO Y graft from GAR to OM
-NSTEMI 12/2019 with peak trop 0.4. cath showed progression of [place] CAD however patient bypass grafts 12/2019
-Continue Aspirin 81 mg daily and Atorvastatin 80 mg daily
Paroxysmal atrial flutter s/p ablation in 2018
Paroxysmal atrial fibrillation
-Not chronically anticoagulated due to patient's choice and low burden of atrial arrhythmia
-Monitor on tele given infection and sepsis
History of NSVT
Type 2 Diabetes Mellitus
- Insulin sliding scale for now -- continue home Insulin regimen at reduced dose
Hypertension
-Monitor BP via vital signs
Hyperlipidemia
-Continue home Atorvastatin
History of Smoking
Chronic right bundle-branch block
History of duodenal ulcer with microperforation in 2018
h/o daily ETOH
GERD.
Anxiety
Overweight
L1 vertebral fracture.
PVD with History of endovascular AAA repair and bilateral femoral artery endarterectomy and profundoplasty 07/2018
DVT Prophylaxis: Lovenox
Code Status: DNR/DNI (at the time of admission on 12/05/24, patient clearly stated he is a DNR and DNI, and he fully understood what that meant)
More than 30 minutes spent in discharge including
Final examination of the patient
Summarizing hospital stay
Instructions for continuing care to all relevant caregivers
Preparation of discharge records, prescriptions, and referral forms
Total time spent (in minutes): 36
Anticipated Discharge: Today
Subjective/Interval History
-
Date of Service: December 06, 2024
Patient was seen and examined. He denied any complaints, he said he is feeling better and he said he is okay with being discharged to SNF today.
Objective Data
-
Labs:
Laboratory Results
12/06/24
08:40
WBC 9.1
Hgb 12.4 L
Hct 38.9 L
Plt Count 227
Sodium 139
Potassium 3.8
Chloride 99
Carbon Dioxide 31 H
BUN 28 H
Creatinine 0.8
Glucose 156 H
Calcium 9.1
Vital Signs:
Vital Signs
Temp Pulse Resp BP Pulse Ox
98.1 F 98 18 152/92 97
12/06/24 11:27 12/06/24 11:27 12/06/24 11:27 12/06/24 11:27 12/06/24 11:27
I&O
12/05/24 12/06/24 12/07/24
06:59 06:59 06:59
Intake Total 1240 / 1240 360 / 360
Output Total 1974 / 1974
Balance -735 / -735 360 / 360
--- NOTE | 2024-12-06 13:37 | CM ---
Addendum entered by Kristen Lopez 12/06/24 14:20:
Patients sister An updated
Addendum entered by Kristen Lopez 12/06/24 14:19:
IMM completed.
Original Note:
Per [facility] bed available today.
Per MD stable for d/c.
TC to [facility]- spoke with Selena
Approved 6 days skilled rehab
Start date 12/06/24, NRD 12/11/24
Auth# [id number]
updates to p# [phone]
Ambulance auth with [facility] auth # [id number]
Ambulance transport forms on chart.
Plan: [facility] today
Nelsy Reyes
report# [phone]
[2024-12-06] MEDS: ATIVAN 0.5 MG PO (15:19)
[2024-12-06 15:37] VITALS: BP 135/86
--- NOTE | 2024-12-06 17:06 | PTCARENOTE ---
Discharge instructions reviewed. Nursing report called to Cortney at [facility]. IV site and tele pack removed. Pt transferred with [facility] via stretcher
== END 2024-12-06 17:22 | DRG 872 ==
LOC: 1 ACUTE 11:38
PROVIDERS: ADMITTING PHYSICIAN Hospitalist; EMERGENCY PHYSICIAN Emergency Medicine; FAMILY PHYSICIAN Family Medicine
DX: A41.81 Sepsis due to Enterococcus (principal); N39.0 Urinary tract infection, site not specified; E87.20 Acidosis, unspecified; D84.821 Immunodeficiency due to drugs; I50.22 Chronic systolic (congestive) heart failure; I48.92 Unspecified atrial flutter; Z66 Do not resuscitate; K21.9 Gastro-esophageal reflux disease without esophagitis; J44.9 Chronic obstructive pulmonary disease, unspecified; D64.9 Anemia, unspecified; E11.51 Type 2 diabetes mellitus with diabetic peripheral angiopathy without gangrene; E66.3 Overweight; E78.00 Pure hypercholesterolemia, unspecified; F41.9 Anxiety disorder, unspecified; G47.30 Sleep apnea, unspecified; T38.0X5A Adverse effect of glucocorticoids and synthetic analogues, initial encounter; M25.551 Pain in right hip; S09.90XA Unspecified injury of head, initial encounter; I11.0 Hypertensive heart disease with heart failure; I25.10 Atherosclerotic heart disease of native coronary artery without angina pectoris; I25.2 Old myocardial infarction; I45.10 Unspecified right bundle-branch block; I48.0 Paroxysmal atrial fibrillation; S50.01XA Contusion of right elbow, initial encounter; Z11.52 Encounter for screening for COVID-19; Z95.5 Presence of coronary angioplasty implant and graft; Z95.1 Presence of aortocoronary bypass graft; Z87.891 Personal history of nicotine dependence; Z79.899 Other long term (current) drug therapy; Z79.4 Long term (current) use of insulin; Z79.52 Long term (current) use of systemic steroids; Z79.82 Long term (current) use of aspirin; W01.198A Fall on same level from slipping, tripping and stumbling with subsequent striking against other object, initial encounter; Z68.26 Body mass index [BMI] 26.0-26.9, adult
CPT/HCPCS: 70450; 71045; 72125; 73080; 73700; 80048; 80053; 81003; 81015; 82550; 82962; 83036; 83605; 83735; 85025; 87040; 87077; 87086; 87186; 87502; 87811; 93005; 94640; 96361; 96374; 97162; 97166; 97530; 99285

== ENCOUNTER 2024-12-08 20:09 | Inpatient (IN) | payer OTHER, SELFPAY ==
[2024-12-08] VITALS (18 sets, daily range): BP systolic 94–224; BP diastolic 52–177; BMI 28.4; BMI 26.7
[2024-12-08 12:47] LABS: % Basophils 0.2 % (0-2); % Eosinophils 1.5 % (0-6); % Immature Granulocytes 0.8 % (0-0.5); % Lymphocytes 6.4 % (20.5-51.1); % Monocytes 6.4 % (1.7-9.3); % Neutrophils 84.7 % (42.2-75.2); Absolute Eosinophils 0.2 10^3/uL (0-0.7); Absolute Immature Granulocytes 0.1 10^3/uL (0-0.05); Absolute Lymphocytes 0.8 10^3/uL (1.2-3.4); Absolute Monocytes 0.8 10^3/uL (0.1-0.6); Absolute Neutrophils 10.4 10^3/uL (1.4-6.5); Hematocrit 39.9 % (39.0-52.0); Hemoglobin 12.8 g/dL (13.0-18.0); Mean Corp Hgb Conc. 32.1 g/dL (33.0-37.0); Mean Corpuscular Hgb 29.8 pg (27.0-31.0); Mean Corpuscular Volume 92.8 fL (80.0-94.0); Mean Platelet Volume 9.6 fL (7.4-10.4); Nucleated Red Blood Cells % 0 % (-); Platelet Count 218 10^3/uL (130-400); Red Cell Dist. Width 12.8 % (11.5-14.5); White Blood Cell Count 12.3 10^3/uL (4.8-10.8)
[2024-12-08 13:06] LABS: ALT (SGPT) 28 U/L (0-50); AST (SGOT) 31 U/L (17-59); Alkaline Phosphatase 95 U/L (38-126); Blood Urea Nitrogen 21 mg/dl (9-20); Calcium 9.5 mg/dl (8.4-10.2); Carbon Dioxide 35 mmol/L (22-30); Chloride 96 mmol/L (98-107); Estimated Creatinine Clearance 92 ml/min; Glucose 268 mg/dl (70-99); Potassium 4.4 mmol/L (3.5-5.1); Sodium 137 mmol/L (135-145); Total Bilirubin 0.5 mg/dl (0.2-1.3); Total Protein 6.4 g/dl (6.3-8.2); eGFR > 60.00
[2024-12-08 13:17] LABS: Troponin I 0.031 ng/ml
--- NOTE | 2024-12-08 14:01 | ED.GENMED ---
History of Present Illness
<Leah Rothman, [employer] - Last Filed: 12/10/24 08:04>
General
Chief Complaint: Chest Pain
Source: patient
Exam Limitations: none
Time Seen by Provider: 12/08/24 12:50
Nursing documentation reviewed up to this point in time: agreed with
History of Present Illness
History of Present Illness:
69 yo male with history of COPD, AAA repair, A-fib on aspirin only, history of falls, IDDM, GERD, HTN, HLD, CHF, TX, CABG 3 vessels 1998, presents from [facility] for left upper chest pains intermittently past week. States 'usually nitro takes
care of it' but it is not ordered for him at [facility]. He denies SOB, abd pain. Did not break out in a sweat or feel lightheaded.
Past History
<Leah Rothman, [employer] - Last Filed: 12/10/24 08:04>
Past History
ED Past Medical History: Arrthythmia (Atrial fib), CAD, CHF, COPD, GERD, HTN, Hypercholesterolemia, NIDDM (Diet controlled), TX (Non-STEMI December 2019) and Other (Back pain, Headaches, Sleep apnea, IBS, Pancreatitis, Ulcers, Gastritis, Anemia, )
ED Past Surgical History: Cardiac (CABG, PTCA with stent), Cholecystectomy (January 2016), Orthopedic (Right wrist surgery), Tonsilectomy and Other (hernia repair, endovascular AAA with bilateral femoral endarterectomy and profundoplasty 07/2018)
Social History
Tobacco: Former smoker
Alcohol: None
Drug: None
Personal: Single
Living: alone
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
Family History
Family History: Hypertension
Review of Systems
<Leah Rothman, [employer] - Last Filed: 12/10/24 08:04>
Review of Systems
Allergies reviewed?: Yes
All Other Systems: ROS reviewed and negative except as documented in HPI and ROS
Constitutional: Denies fever or fatigue
Respiratory: Denies trouble breathing
Cardiac: Reports chest pain
ABD/GI: Denies nausea, vomiting or diarrhea
: Denies dysuria or difficulty voiding
Musculoskeletal: Reports other (Ambulatory dysfunction, uses a rollator and states he has frequent falls); Denies edema
Skin: Reports no symptoms
Neurological: Reports no symptoms
Phy Exam
<Leah Rothman, VP [employer] - Last Filed: 12/10/24 08:04>
Physical Exam
Physical Exam:
GENERAL: No acute distress. A&Ox3.
CONSTITUTIONAL: Afebrile.
EYES: clear, conjunctivae normal
ENMT: moist mucus membranes, Pharynx nl
RESPIRATORY: Regular respirations, nonlabored, lungs clear.
CARDIOVASCULAR: Regular rate and rhythm, no murmurs, no rubs.
GI: Soft, nontender, normal BS
MUSCULOSKELETAL: Well perfused. No edema
SKIN: Warm, dry, pink
PSYCH: Normal mood and affect. Well kept, interactive and appropriate
NEUROLOGIC: Awake, alert and oriented. No focal neurological deficits
Scores
<Leah Rothman, [employer] - Last Filed: 12/10/24 08:04>
Heart Score for Chest Pain Patients
STEMI patient?: Not applicable
Course
<Leah Rothman, [employer] - Last Filed: 12/10/24 08:04>
Orders/Labs/Results
Orders:
Orders
12/08/24 12:31
Electrocardiogram (*1) Urgent
Reason for Study: Chest Pain
Cardiac Monitoring- Treatment ONCE
EKG- Treatment ONCE
IV Insert/Care/Rem.- Treatment PRN
12/08/24 12:39
Complete Blood Count/With Diff Urgent
Comprehensive Metabolic Panel Urgent
Troponin I Urgent
12/08/24 14:00
0.9% Sodium Chloride 500 ml [Nss] 500 ml IV BOLUS
12/08/24 14:06
Electrocardiogram (*1) Urgent
Reason for Study: Chest Pain
EKG- Treatment ONCE
12/08/24 Dinner
Cholesterol Lowering
At Your Request: Full Participation
Does patient need a safe tray?: No
Cholesterol Lowering: Sodium, 2 Gram
12/08/24 16:13
Troponin I Urgent
12/08/24 18:23
Labetalol HCl [Trandate] 10 mg 0.9% Sodium Chloride 50 ml [Nss] 50 ml IV NOW
12/08/24 18:24
COVID-19 Antigen Urgent
Source: Nasal Swab
Influenza A+B Rapid Molecular Urgent
FLYNN Source: Nasal Swab
Specimen Description:
12/08/24 18:31
Labetalol HCl [Trandate] 20 mg .ROUTE .STK-MED ONE
12/08/24 18:32
Labetalol HCl [Trandate] 10 mg IV NOW STA
12/08/24 19:10
Admit/Transfer Patient As Directed
Co-Sign Provider:
Level of Care: Inpatient admission
Assign to:: Telemetry
Physician / Group: Víctor Lowe
Diagnosis: chest pain, hypertensive urgency
Reason for Telemetry: Chest Pain syndromes
Date to Stop Telemetry: 12/10/24
Time to Stop Telemetry: 11:00
Reason for Hospitalization: chest pain, hypertensive urgency
Expected length of stay greater than two midnights?: Yes
ELOS- Estimated Length of Stay in days: 3
I certify the patient meets the requirements for IP care: Yes
12/08/24 19:11
PRN Pain Medication Management As Directed
May give lesser potent ordered pain med per pt: Yes
preference::
Protocol:: Medication orders for pain may be administered in a
manner that supports deferring to patient preference
when the pt is:
- Requesting an ordered lesser potent pain medication.
Least to most potent pain medications are defined
as: acetaminophen < NSAID < tramadol < opioids
(morphine, oxycodone, hydromorphone).
- Requesting a lesser dose of the same medication IF
ORDERED.
- Requesting a less intrusive route of administration
if both routes are prescribed by the provider (PO <
IV).
12/08/24 19:14
Code Status As Directed
Resuscitation Status: Do not resuscitate
Reached after discussion with pt or family/Healthcare POA: Yes
Decision communicated with: patient
DNR Bracelet Application ONCE
12/08/24 20:32
Albuterol [ProAIR HFA INHALER] 2 puff INH R Q6HPRN PRN
Budesonide [Pulmicort] 0.5 mg INH R BID
Cefdinir [Omnicef] 300 mg PO Q12
Dextrose 50%-Water [Dextrose 50% Syringe] 12.5 grams IV [id number] PRN
Glucagon [GlucaGen] 1 mg IM PRN PRN
HydrALAZINE [Apresoline] 10 mg IV Q4HPRN PRN
Ipratropium/Albuterol Sulfate [Duoneb] 3 ml INH R QIDPRN PRN
Lorazepam [Ativan] 0.5 mg PO BIDPRN PRN
Nitroglycerin Sublingual [Nitrostat (Sublingual)] 0.4 mg SL [id number] PRN
Trazodone [Desyrel] 50 mg PO HSPRN PRN
amoxicillin 875 mg PO Q12H
12/08/24 20:32
Echo 2D MMode Color/Doppler Routine
Reason for Study: chest pain
CARDIOLOGY CONSULT Routine
Consulting Provider: Kris Rojo
Was physician already notified: Yes
Activity As Directed
Activity Level: Out of Bed-Early Mobility
Bedside Glucose Monitoring As Directed
Frequency: AC&HS
Additional Instructions:: Change to q6h if pt on TPN, tube feeding or not eating
INT (Intravenous Needle Therapy) As Directed
Comment: maintain peripheral IV access
Intake/ Output As Directed
Frequency: Per unit guidelines
Vital Signs As Directed
Frequency: q4h
Weight As Directed
Frequency: Daily
O2 Therapy [RESP] Routine
Titrate/Wean O2 to maintain O2 sat greater than (%): 93
DX Deep Vein Thrombosis Video Routine
12/08/24 20:59
Troponin I Q3H
Comment: at admit & Q3H for 3 total including ED draws, obtain ECG with each level
12/08/24 22:00
Dicyclomine [Bentyl] 10 mg PO QID
Midodrine [ProAmatine] 10 mg PO TID @ 0800,1200,1700
12/09/24 03:16
Cardiovascular Evaluation IN AM
Complete Blood Count/No Diff IN AM
Comprehensive Metabolic Panel IN AM
Troponin I Q3H
Comment: at admit & Q3H for 3 total including ED draws, obtain ECG with each level
12/09/24 06:00
Electrocardiogram (*1) IN AM
Reason for Study: Chest Pain
12/09/24 07:30
Insulin Aspart Corrective Low [Novolog Flexpen-Low Resistance] See Protocol SC AC
12/09/24 08:00
Ascorbic Acid [Vitamin C] 500 mg PO DAILY
Aspirin Chewable [Low Strength Aspirin] 81 mg PO DAILY
Atorvastatin [Lipitor] 80 mg PO DAILY
Bupropion(24Hr)Extended Releas [WELLBUTRIN XL (24 hour extended release)] 300 mg PO DAILY
Furosemide [Lasix] 40 mg PO DAILY
Pantoprazole [Protonix] 40 mg PO DAILY
Potassium Chloride [KCl] 20 meq PO DAILY
Prednisone [Deltasone] 10 mg PO DAILY
Sertraline HCl [Zoloft] 50 mg PO DAILY
Tamsulosin [Flomax] 0.4 mg PO DAILY
12/09/24 18:00
Enoxaparin Sodium [Lovenox] 40 mg SC QPM
12/10/24 11:00
DC Protocol for Telemetry ONCE
Abnormal Lab Results
12/08/24
12:39
WBC 12.3 H 10^3/uL
(4.8-10.8)
RBC 4.30 L 10^6/uL
(4.70-6.10)
Hgb 12.8 L g/dL
(13.0-18.0)
MCHC 32.1 L g/dL
(33.0-37.0)
Abs Immat Gran (auto) 0.1 H 10^3/uL
(0-0.05)
Absolute Neuts (auto) 10.4 H 10^3/uL
(1.4-6.5)
Absolute Lymphs (auto) 0.8 L 10^3/uL
(1.2-3.4)
Absolute Monos (auto) 0.8 H 10^3/uL
(0.1-0.6)
Immature Gran % 0.8 H %
(0-0.5)
Neutrophils % 84.7 H %
(42.2-75.2)
Lymphocytes % 6.4 L %
(20.5-51.1)
Chloride 96 L mmol/L
(98-107)
Carbon Dioxide 35 H mmol/L
(22-30)
BUN 21 H mg/dl
(9-20)
Glucose 268 H mg/dl
(70-99)
12/08/24 12:39
12/08/24 12:39
Vital Signs
Initial and Last Documented VS:
Initial Vital Signs
Pulse Resp Pulse Ox
117 17 96
12/08/24 12:31 12/08/24 12:31 12/08/24 12:31
Last Documented Vital Signs
Temp Pulse Resp BP Pulse Ox
97.5 F 81 18 157/70 99
12/10/24 03:30 12/10/24 03:30 12/10/24 03:30 12/10/24 03:30 12/10/24 03:30
<Teena Gilmore MD - Last Filed: 12/08/24 18:24>
Orders/Labs/Results
Orders:
Orders
12/08/24 12:31
Electrocardiogram (*1) Urgent
Reason for Study: Chest Pain
Cardiac Monitoring- Treatment ONCE
EKG- Treatment ONCE
IV Insert/Care/Rem.- Treatment PRN
12/08/24 12:39
Complete Blood Count/With Diff Urgent
Comprehensive Metabolic Panel Urgent
Troponin I Urgent
12/08/24 14:00
0.9% Sodium Chloride 500 ml [Nss] 500 ml IV BOLUS
12/08/24 14:06
Electrocardiogram (*1) Urgent
Reason for Study: Chest Pain
EKG- Treatment ONCE
12/08/24 Dinner
Cholesterol Lowering
At Your Request: Full Participation
Does patient need a safe tray?: No
Cholesterol Lowering: Sodium, 2 Gram
12/08/24 16:13
Troponin I Urgent
12/08/24 18:23
Labetalol HCl [Trandate] 10 mg 0.9% Sodium Chloride 50 ml [Nss] 50 ml IV NOW
12/08/24 18:24
COVID-19 Antigen Urgent
Source: Nasal Swab
Influenza A+B Rapid Molecular Urgent
FLYNN Source: Nasal Swab
Specimen Description:
12/08/24 18:31
Labetalol HCl [Trandate] 20 mg .ROUTE .ST-MED ONE
12/08/24 18:32
Labetalol HCl [Trandate] 10 mg IV NOW STA
12/08/24 19:10
Admit/Transfer Patient As Directed
Co-Sign Provider:
Level of Care: Inpatient admission
Assign to:: Telemetry
Physician / Group: Víctor Lowe
Diagnosis: chest pain, hypertensive urgency
Reason for Telemetry: Chest Pain syndromes
Date to Stop Telemetry: 12/10/24
Time to Stop Telemetry: 11:00
Reason for Hospitalization: chest pain, hypertensive urgency
Expected length of stay greater than two midnights?: Yes
ELOS- Estimated Length of Stay in days: 3
I certify the patient meets the requirements for IP care: Yes
12/08/24 19:11
PRN Pain Medication Management As Directed
May give lesser potent ordered pain med per pt: Yes
preference::
Protocol:: Medication orders for pain may be administered in a
manner that supports deferring to patient preference
when the pt is:
- Requesting an ordered lesser potent pain medication.
Least to most potent pain medications are defined
as: acetaminophen < NSAID < tramadol < opioids
(morphine, oxycodone, hydromorphone).
- Requesting a lesser dose of the same medication IF
ORDERED.
- Requesting a less intrusive route of administration
if both routes are prescribed by the provider (PO <
IV).
12/08/24 19:14
Code Status As Directed
Resuscitation Status: Do not resuscitate
Reached after discussion with pt or family/Healthcare POA: Yes
Decision communicated with: patient
DNR Bracelet Application ONCE
12/08/24 20:32
Albuterol [ProAIR HFA INHALER] 2 puff INH R Q6HPRN PRN
Budesonide [Pulmicort] 0.5 mg INH R BID
Cefdinir [Omnicef] 300 mg PO Q12
Dextrose 50%-Water [Dextrose 50% Syringe] 12.5 grams IV [id number] PRN
Glucagon [GlucaGen] 1 mg IM PRN PRN
HydrALAZINE [Apresoline] 10 mg IV Q4HPRN PRN
Ipratropium/Albuterol Sulfate [Duoneb] 3 ml INH R QIDPRN PRN
Lorazepam [Ativan] 0.5 mg PO BIDPRN PRN
Nitroglycerin Sublingual [Nitrostat (Sublingual)] 0.4 mg SL [id number] PRN
Trazodone [Desyrel] 50 mg PO HSPRN PRN
amoxicillin 875 mg PO Q12H
12/08/24 20:32
Echo 2D MMode Color/Doppler Routine
Reason for Study: chest pain
CARDIOLOGY CONSULT Routine
Consulting Provider: Kris Rojo
Was physician already notified: Yes
Activity As Directed
Activity Level: Out of Bed-Early Mobility
Bedside Glucose Monitoring As Directed
Frequency: AC&HS
Additional Instructions:: Change to q6h if pt on TPN, tube feeding or not eating
INT (Intravenous Needle Therapy) As Directed
Comment: maintain peripheral IV access
Intake/ Output As Directed
Frequency: Per unit guidelines
Vital Signs As Directed
Frequency: q4h
Weight As Directed
Frequency: Daily
O2 Therapy [RESP] Routine
Titrate/Wean O2 to maintain O2 sat greater than (%): 93
DX Deep Vein Thrombosis Video Routine
12/08/24 20:59
Troponin I Q3H
Comment: at admit & Q3H for 3 total including ED draws, obtain ECG with each level
12/08/24 22:00
Dicyclomine [Bentyl] 10 mg PO QID
Midodrine [ProAmatine] 10 mg PO TID @ 0800,1200,1700
12/09/24 03:16
Cardiovascular Evaluation IN AM
Complete Blood Count/No Diff IN AM
Comprehensive Metabolic Panel IN AM
Troponin I Q3H
Comment: at admit & Q3H for 3 total including ED draws, obtain ECG with each level
12/09/24 06:00
Electrocardiogram (*1) IN AM
Reason for Study: Chest Pain
12/09/24 07:30
Insulin Aspart Corrective Low [Novolog Flexpen-Low Resistance] See Protocol SC AC
12/09/24 08:00
Ascorbic Acid [Vitamin C] 500 mg PO DAILY
Aspirin Chewable [Low Strength Aspirin] 81 mg PO DAILY
Atorvastatin [Lipitor] 80 mg PO DAILY
Bupropion(24Hr)Extended Releas [WELLBUTRIN XL (24 hour extended release)] 300 mg PO DAILY
Furosemide [Lasix] 40 mg PO DAILY
Pantoprazole [Protonix] 40 mg PO DAILY
Potassium Chloride [KCl] 20 meq PO DAILY
Prednisone [Deltasone] 10 mg PO DAILY
Sertraline HCl [Zoloft] 50 mg PO DAILY
Tamsulosin [Flomax] 0.4 mg PO DAILY
12/09/24 18:00
Enoxaparin Sodium [Lovenox] 40 mg SC QPM
12/10/24 11:00
DC Protocol for Telemetry ONCE
Abnormal Lab Results
12/08/24
12:39
WBC 12.3 H 10^3/uL
(4.8-10.8)
RBC 4.30 L 10^6/uL
(4.70-6.10)
Hgb 12.8 L g/dL
(13.0-18.0)
MCHC 32.1 L g/dL
(33.0-37.0)
Abs Immat Gran (auto) 0.1 H 10^3/uL
(0-0.05)
Absolute Neuts (auto) 10.4 H 10^3/uL
(1.4-6.5)
Absolute Lymphs (auto) 0.8 L 10^3/uL
(1.2-3.4)
Absolute Monos (auto) 0.8 H 10^3/uL
(0.1-0.6)
Immature Gran % 0.8 H %
(0-0.5)
Neutrophils % 84.7 H %
(42.2-75.2)
Lymphocytes % 6.4 L %
(20.5-51.1)
Chloride 96 L mmol/L
(98-107)
Carbon Dioxide 35 H mmol/L
(22-30)
BUN 21 H mg/dl
(9-20)
Glucose 268 H mg/dl
(70-99)
12/08/24 12:39
12/08/24 12:39
Vital Signs
Initial and Last Documented VS:
Initial Vital Signs
Pulse Resp Pulse Ox
117 17 96
12/08/24 12:31 12/08/24 12:31 12/08/24 12:31
Last Documented Vital Signs
Temp Pulse Resp BP Pulse Ox
97.5 F 81 18 157/70 99
12/10/24 03:30 12/10/24 03:30 12/10/24 03:30 12/10/24 03:30 12/10/24 03:30
<Leah Rothman, [employer] - Last Filed: 12/10/24 08:04>
MDM/Problems Addressed
Differential Diagnosis Includes:
angina, unstable angina, TX, dehydration.
MDM/Problems Addressed:
69 yo female with history of COPD, AAA repair, A-fib on aspirin only, history of falls, IDDM, GERD, HTN, HLD, CHF, TX, CABG 3 vessels 1998, presents from [facility] for left upper chest pains intermittently past week. States 'usually nitro
takes care of it' but it is not ordered for him at [facility]. He denies SOB, abd pain. Did not break out in a sweat or feel lightheaded.
EKG: sinus tachycardia Rate 116
Pt denies CP at this time
12:45 PM:
CBC normal
CMP normal
Troponin #1 within normal limits
2:00 PM:
Bedside monitor showing irregular HR 110-120's
Repeat EKG showing sinus tachycardia with occasional PVCs
Pt had CXR when here 3 days ago showing NAD, no indication to repeat.
3:00 PM:
CBC with no clinically significant abnormality mild leukocytosis
CMP with no clinically significant abnormality, consistent with his chronic COPD and his baseline BUN
4:30 PM:
Troponin #2 normal
6:30 PM:
After 500 of IV fluid patient remains tachycardic and hypertensive
Pain: Admit: Hypertensive urgency, persistent tachycardia
Hospitalist notified of admission
Chronic conditions affecting care: DM, HTN and COPD
<Leah Rothman NP - Last Filed: 12/10/24 08:04>
*Critical Care Note
Total Time (30-74mins, 75-104mins- exclusive of procedures): Not Applicable
ED Attending Note
<Leah Rothman NP - Last Filed: 12/10/24 08:04>
-
Portions of this chart may have been created with voice recognition software.� Occasional wrong word or��sound alike� substitutions may have occurred due to the inherent limitations of voice recognition software.
<Teena Gilmore MD - Last Filed: 12/08/24 18:24>
ED Attending Note
Patient seen and examined by attending physician: Yes
I performed the substantive portion of visit, reviewed & personally made and approve the management plan that is documented in note by myself or RAMON.: Yes
ED Attending Note:
Patient appears well and comfortable. However, patient reports 2 episodes of chest heaviness that are relieved with nitro earlier today. Patient is having tachycardia and is extremely hypertensive. Decision made to do admit for hypertensive
urgency blood pressure control
Discharge Plan
Departure
Patient Disposition: Admit
Date of Disposition: 12/08/24
Time of Disposition: 18:35
Admit to: Telemetry
Presentation/result/management discussed w/ accepting MD/DO: Hospitalist
Condition: Fair
Discharge Problem:
Atypical chest pain
Interventions
Interventions:
*Risk Screen - Suicide Last Done: 12/08/24 12:43
*General Assessment Last Done: 12/08/24 12:43
*Neglect/Abuse Screening Last Done: 12/08/24 12:43
ED- Fall Risk Assessment Last Done: 12/08/24 12:43
*ED COVID-19 Vaccine History Last Done: 12/08/24 12:43
*Nursing Disposition Last Done: 12/08/24 20:31
ED- Cardiac Assessment Last Done: 12/08/24 12:43
Discharge Date and Time
Discharge Date/Time: 12/08/24 20:32
[2024-12-08] MEDS: NSS 500 IV (14:25)
--- NOTE | 2024-12-08 15:15 | EDRN ---
the pt has been hypertensive, this RN notified Kaitphyllis Rothman INTERNAL MEDICINE NURSE PRACTITIONER, no new orders were received
[2024-12-08 16:44] LABS: Troponin I 0.025 ng/ml
--- NOTE | 2024-12-08 17:20 | EDRN ---
this RN notified the provider Kait Rothman FULLING MACHINE OPERATOR that the pt has been consistently tachycardic and is hypertensive, awaiting for the provider to come to the pts bedside, no new orders were received
--- NOTE | 2024-12-08 18:20 | EDRN ---
Dr. Gilmore and Kait Rothman SALES OPERATIONS ANALYST were notified of the pts elevated blood pressures and tachycardic and Dr. Mcclellan and Kait Rothmna SALES OPERATIONS ANALYST are currently at the pts bedside
[2024-12-08] MEDS: TRANDATE 10 MG IV (18:33)
--- NOTE | 2024-12-08 18:37 | HPS.HSE ---
Family Physician
-
Family Physician: Renan Pedroza DO
Chief Complaint
-
chest pain
History of Present Illness
Patient is a 69-year-old male with past medical history significant for COPD, atrial fibrillation, IDDM, GERD, HTN, HLD, HFrEF, MS s/p CABG 3 vessel who presented to [facility] ED for evaluation of chest pain. Patient reports similar chest
pain at home and will resolve with PRN nitro. Patient is currently staying at [facility] for rehab s/p recent hospitalization for mechanical fall discharged 02/04/2024. Patients states his PRN nitro is not ordered at [facility] so the
staff sent him for evaluation. Patient denies any palpitations, dizziness or diaphoresis. Patient denies any recent fever, chills, nausea, vomiting, constipation, diarrhea or urinary symptoms.
Medical History
Past Medical History
Past Medical History: Reports Other
Additional Past Medical History:
COPD
atrial fibrillation
IDDM
GERD
HTN
HLD
HFrEF
MS s/p CABG 3 vessel
Past Surgical History: Reports Other
Additional Past Surgical History:
CABG 3 vessel 1998
endovascular AAA repair
femoral endarterectomy
cholecystectomy
atrial flutter ablation
Social History
Tobacco: Former Smoker (quit 3 years ago )
Alcohol: Former (quit 3 years ago )
Drug: None
Living: With Family (currently at Rehab )
Family History
Family History: Other (Dad: CAD; Mom: Lung Ca)
Allergies / Home Medications
Allergies reflects when Allergies were last updated in [employer].
Home Medications with original date entered in [employer]
Allergy/Medication List:
Allergies
Allergy/AdvReac Type Severity Reaction Status Date / Time
lisinopril Allergy throat Verified 12/05/24 14:51
closes
Home Medications
albuterol sulfate 90 mcg/actuation aerosol inhaler 2 puff inhalation R Q6HPRN PRN SOB 07/02/23
atorvastatin 80 mg tablet 80 mg PO DAILY High cholesterol 07/02/23
dicyclomine 10 mg capsule 10 mg PO QID Gastrointestinal Issue 07/02/23
ipratropium 0.5 mg-albuterol 3 mg (2.5 mg base)/3 mL nebulization soln 3 ml inhalation R QIDPRN PRN SOB 07/02/23
pantoprazole 40 mg tablet,delayed release 40 mg PO DAILY Gastrointestinal issue 07/02/23
tamsulosin 0.4 mg capsule 0.4 mg PO DAILY BPH 07/02/23
budesonide 0.5 mg/2 mL suspension for nebulization 0.5 mg (2 mL) inhalation R BID copd #60 mL 07/06/23
aspirin 81 mg chewable tablet (Children's Aspirin) 81 mg PO DAILY #1 tab 09/10/23
azithromycin 250 mg tablet 250 mg PO DAILY Infection #0 tabs 09/10/23
furosemide 40 mg tablet 40 mg PO DAILY #1 tab 09/10/23
prednisone 10 mg tablet 10 mg PO DAILY Anti-inflammatory #0 tabs 09/10/23
ascorbic acid (vitamin C) 500 mg tablet (Vitamin C) 500 mg PO DAILY 12/05/24
bupropion HCl 300 mg 24 hr tablet, extended release 300 mg PO DAILY 12/05/24
nitroglycerin 0.4 mg sublingual tablet (Nitrostat) 0.4 mg sublingual [id number] PRN chest pain 12/05/24
potassium chloride 20 mEq tablet,extended release(part/cryst) 20 meq PO DAILY 12/05/24
sertraline 50 mg tablet 50 mg PO DAILY 12/05/24
trazodone 50 mg tablet 50 mg PO HSPRN PRN sleep 12/05/24
amoxicillin 875 mg tablet 875 mg PO Q12H 5 days #10 tabs 12/06/24
cefdinir 300 mg capsule 300 mg PO Q12H 8 days #16 caps 12/06/24
midodrine 10 mg tablet 10 mg PO TID #0 tabs 12/06/24
acetaminophen 325 mg tablet 650 mg PO Q4HPRN PRN mild pain/fever 12/08/24
bisacodyl 10 mg rectal suppository 10 mg [place] DAILYPRN PRN 3 days no bm, mom ineffective 12/08/24
insulin glargine 100 unit/mL subcutaneous solution (Lantus U-100 Insulin) 3 unit SC HS 12/08/24
lorazepam 0.5 mg tablet 0.5 mg PO BIDPRN PRN sleep/anxiety 12/08/24
magnesium hydroxide 400 mg/5 mL oral suspension (Milk of Magnesia) 30 ml PO HSPRN PRN constipation 12/08/24
Review of Systems
-
History Source: Patient
Constitutional: Reports No Symptoms
EENT: Reports No Symptoms
Respiratory: Reports No Symptoms
Cardiac: Reports Chest Pain
Abdomen/GI: Reports No Symptoms
: Reports No Symptoms
Musculoskeletal: Reports No Symptoms
Skin: Reports No Symptoms
Neurological: Reports No Symptoms
Endocrine: Reports No Symptoms
Hematologic/Lymphatic: Reports No Symptoms
Psych: Reports No Symptoms
Physical Exam
Vital Signs
Vital Signs
Temp Pulse Resp BP Pulse Ox
98.5 F 150 14 188/138 97
12/08/24 12:43 12/08/24 18:33 12/08/24 18:00 12/08/24 18:33 12/08/24 17:15
Physical Exam
General: Well Developed, Well Nourished, No Apparent Distress, Comfortable and Conversant
HEENT: NormoCephalic, Moist mucous membranes, Atraumatic, PERRLA, [place] Conjunctivae, Nose Appears Normal and Ears Appear Normal
Respiratory: Clear, Non Labored Respirations, Decreased Breath Sounds and Other (O2 3Liters chronic at home )
Cardiac: S1/S2 and Regular Rhythm; No Murmur, Rub or Gallop
Breast: Deferred by me
GI: Soft, Non Tender, Non Distended and Normal Bowel Sounds; No Organomegaly
Rectal: Deferred by Provider
Genito-urinary: Deferred by me
Musculoskeletal: No Clubbing, No Cyanosis and No Edema
Skin: Warm and IV/Catheter Site; No Rash
Neuro: Awake, Alert, AO x 3 and Nonfocal/grossly intact
Psych: Calm and Intact Judgment/Insight
Laboratory Results
-
12/08/24 12:39
12/08/24 12:39
Laboratory Results
Total Bilirubin 0.5 mg/dl (0.2-1.3) 12/08/24 12:39
AST 31 U/L (17-59) 12/08/24 12:39
ALT 28 U/L (0-50) 12/08/24 12:39
Alkaline Phosphatase 95 U/L (38-126) 12/08/24 12:39
Troponin I 0.025 ng/ml 12/08/24 16:13
Data Reviewed
-
Medical Tests (Nuc Med, Echo, EKG etc): Report Reviewed by me (EKG: SINUS TACHYCARDIA WITH OCCASIONAL PREMATURE VENTRICULAR COMPLEXES RIGHT BUNDLE BRANCH BLOCK T WAVE ABNORMALITY, CONSIDER LATERAL ISCHEMIA)
Lab Data: Labs Reviewed by me (Trop 0.031, 0.025)
Impression/Plan
-
IMPRESSION/PLAN:
#chest pain
Trop: 0.031, 0.025
EKG: SINUS TACHYCARDIA WITH OCCASIONAL PREMATURE VENTRICULAR COMPLEXES
RIGHT BUNDLE BRANCH BLOCK
T WAVE ABNORMALITY, CONSIDER LATERAL ISCHEMIA
- Admit to telemetry
- trend troponin
- EKG in the morning
#hypertensive urgency
- PRN hydralazine for SBP >165 and DBP >110
#COPD
- on home O2 3Liters
- continue albuterol PRN, budesonide, DuoNeb PRN, and prednisone
#atrial fibrillation
not anticoagulated r/t patient choice and low burden of atrial arrhythmia, takes daily aspirin 81mg
#IDDM
- AccuCheck AC & HS
- SSI
- continue Lantus
#GERD
- continue pantoprazole
#HTN
- continue furosemide
#HLD
- continue atorvastatin
#HFrEF
#MS s/p CABG 3 vessel
ECHO (09/06/2023): 1. Left ventricle: The left ventricle is dilated and systolic function is low normal to mildly reduced with an estimated ejection fraction of 45 to 50%. The ventricle is globally hypokinetic. Definity contrast
was utilized. Stage I diastolic dysfunction
2. Right ventricle: Normal
3. Atria: Normal
4. Mitral valve: Mild mitral regurgitation
5. Aortic valve: No aortic stenosis or aortic insufficiency
6. Tricuspid valve: Trace tricuspid regurgitation. Estimated pulmonary artery systolic pressures are 25-30 mmHg
7. When compared to the most recent echocardiogram from 08/04/2021 there appears to be no significant change. LVEF is now estimated 45-50% with mild global hypokinesis. The EF was estimated to be
50% on the prior study
- daily weights
- continue furosemide
- ECHO in AM
#depression/anxiety
- continue bupropion, lorazepam, sertraline and trazodone
Code status:
DVT Prophylaxis:
--- NOTE | 2024-12-08 18:40 | EDRN ---
due to the pts consistent tachycardia and the pts hypertension, per GEODETIC SURVEYOR TECHNOLOGIST the pt is going to be admitted, the pt was swabbed for Covid and Influenza, a PIV was placed and the pt received IV Labetalol
[2024-12-08 18:55] LABS: COVID-19 Antigen Negative (Negative)
--- NOTE | 2024-12-08 19:05 | W.PN.UPDATE ---
Update Note
Progress Note Update
This note serves as an addendum to the H&P by grinder set up operator surface RAMON
Shelley Diallo
HPI
69M Immunosuppressed State due to Chronic Prednisone use, recently hospitalized from 12/05/24 to 12/06/24 for sepsis due to UTI, Leucocytosis, chr HFmEF was DC'd on 12/06/24 to SNF at [facility] seen at ER:
- evaluation for left upper chest pains intermittently past week.
- usually nitro takes care of it' but it is not ordered for him at [facility].
- did not break out in a sweat or feel lightheaded
PHX significant for HX falls, hypertension, hyperlipidemia, CAD, 3 V CABG ( 1998) CHF, A Fib only on ASA. , COPD
ROS:
- denies SOB, abd pain.
Vital Signs
Temp Pulse Resp BP Pulse Ox
98.5 F 126 12 163/92 98
12/08/24 12:43 12/08/24 18:39 12/08/24 18:39 12/08/24 18:39 12/08/24 18:39
PE
Gen: Not toxic, NAD
HEENT: anicteric
Neck:
Lungs: Not dyspneic, not orthopnic, clear lungs
Cor: RRR S1 S2
Abdomen: Soft, nontender, normal BS
ALLIGATOR TRAPPER: Awake, alert and oriented. No focal neurological deficits
MS: no edema
Psych: Well kept, interactive and appropriate
Abnormal Lab Results
12/08/24
12:39
WBC 12.3 H
RBC 4.30 L
Hgb 12.8 L
MCHC 32.1 L
Abs Immat Gran (auto) 0.1 H
Absolute Neuts (auto) 10.4 H
Absolute Lymphs (auto) 0.8 L
Absolute Monos (auto) 0.8 H
Immature Gran % 0.8 H
Neutrophils % 84.7 H
Lymphocytes % 6.4 L
Chloride 96 L
Carbon Dioxide 35 H
BUN 21 H
Glucose 268 H
EKG
SINUS TACHYCARDIA WITH OCCASIONAL PREMATURE VENTRICULAR COMPLEXES
RIGHT BUNDLE BRANCH BLOCK
T WAVE ABNORMALITY, CONSIDER LATERAL ISCHEMIA
ABNORMAL ECG
WHEN COMPARED WITH ECG OF 08-DEC-2024 12:34,
PREMATURE VENTRICULAR COMPLEXES ARE NOW PRESENT
Confirmed by SYLVAIN SENA MD ([id number]) on 12/08/2024 3:23:19 PM
09/06/23 ECHO
LVEF 45 to 50%.
The ventricle is globally hypokinetic.
Stage I diastolic dysfunction
Nl RV
Mild mitral regurgitation
No aortic stenosis or aortic insufficiency
Trace tricuspid regurgitation. Estimated PASP 25-30 mmHg
When compared to the most recent echocardiogram from 08/04/2021 there appears to be no significant change. The EF was estimated to be 50% on the prior study
Last hospitalist admission: Date of Admission: 12/05/24 - Date of Discharge: 12/06/24
Discharge Diagnosis/Procedures: Presentation with multiple falls and severe weakness
Sepsis Secondary to UTI
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
Leukocytosis
ASSESSMENT & PLAN
Lt sided CP suspect associated with HTN urgency
NEG TPNI times 2
HX CAD, remote HX CABG 1998
- c/w Aspirin 81 mg daily and Atorvastatin 80 mg daily
- Trend TPNI
- EKG in AM
- [facility] Card consult
HTN urgency
Known essential HTN
- improved BP s/p IV labetalol 10 mg times 2
- add IV Hydralazine PRN for SBP > 165 and DBP > 110
HX CAD
-NSTEMI 12/2019 with peak trop 0.4. cath showed progression of [place] CAD however patient bypass grafts 12/2019
-s/p CABG 1998 at [facility] with GAR to LAD and free JONO Y graft from GAR to OM
- c/w DRAWBRIDGE OPERATOR ASA 81 mg daily and Atorvastatin 80 mg daily
Hyperlipidemia
- c/w Atorvastatin
Chronic HFmEF ; stable
Last LVEF 45- 50 in 2022
- ECHO in AM
- c/w DRAWBRIDGE OPERATOR PO Lasix 40 daily
- daily Wt
Severe COPD
Former smoker
- on chr home O2 3L NC O2
- Followed by Dr. Landeros outpatient
- c/w DRAWBRIDGE OPERATOR PO prednisone, Azithromycin, bronchodilators and ICS
HX Paroxysmal atrial flutter s/p ablation in 2017
Paroxysmal atrial fibrillation
- Not chronically anticoagulated due to patient's choice and low burden of atrial arrhythmia
Chronic Rt BBB
History of duodenal ulcer with microperforation in 2017
HX daily ETOH
HX NSVT
T2DM
- ISS low
- c/w home Insulin regimen
GERD.
Anxiety
Overweight
L1 vertebral fracture.
PVD with History of endovascular AAA repair and bilateral femoral artery endarterectomy and profundoplasty 07/2018
DVT Prophylaxis: Lovenox
Code Status: DNR
IP TLM
[2024-12-08] MEDS: ProAmatine PO (20:48)
[2024-12-08 21:17] LABS: Glucose - Point of Care 152 mg/dl (70-99)
[2024-12-08] MEDS: ATIVAN 0.5 MG PO (21:18)
[2024-12-08] MEDS: TYLENOL 650 MG PO (21:18)
[2024-12-08] MEDS: OMNICEF 300 MG PO (21:19)
[2024-12-08] MEDS: APRESOLINE 10 MG IV (21:21)
[2024-12-08 21:32] LABS: Troponin I 0.033 ng/ml
[2024-12-08] MEDS: LANTUS 0.03 UNITS SC (21:56)
[2024-12-08] MEDS: BENTYL 10 MG PO ×2 (21:56)
[2024-12-08] MEDS: DUONEB 3 ML INH (21:57)
[2024-12-08] MEDS: PULMICORT 0.5 MG INH (21:57)
[2024-12-08] MEDS: DESYREL 50 MG PO (23:46)
[2024-12-09] VITALS (9 sets, daily range): BP systolic 110–157; BP diastolic 69–99; PULSE 113–119; BMI 26.7
[2024-12-09] MEDS: NITROSTAT (SUBLINGUAL) 0.4 MG SL ×3 (02:26→14:54)
[2024-12-09] MEDS: MORPHINE SULFATE 1 MG IV (03:39)
[2024-12-09 03:46] LABS: Hematocrit 37.9 % (39.0-52.0); Hemoglobin 12.4 g/dL (13.0-18.0); Mean Corp Hgb Conc. 32.7 g/dL (33.0-37.0); Mean Corpuscular Hgb 29.4 pg (27.0-31.0); Mean Corpuscular Volume 89.8 fL (80.0-94.0); Mean Platelet Volume 9.3 fL (7.4-10.4); Platelet Count 232 10^3/uL (130-400); Red Blood Cell Count 4.22 10^6/uL (4.70-6.10); Red Cell Dist. Width 12.7 % (11.5-14.5); White Blood Cell Count 11.4 10^3/uL (4.8-10.8)
[2024-12-09 04:27] LABS: ALT (SGPT) 28 U/L (0-50); AST (SGOT) 30 U/L (17-59); Albumin 4.3 g/dl (3.5-5.0); Alkaline Phosphatase 95 U/L (38-126); Blood Urea Nitrogen 19 mg/dl (9-20); Carbon Dioxide 31 mmol/L (22-30); Chloride 97 mmol/L (98-107); Estimated Creatinine Clearance 107 ml/min; Glucose 142 mg/dl (70-99); HDL Cholesterol 63 mg/dl; LDL Cholesterol, Calculated 37 mg/dl; Potassium 3.6 mmol/L (3.5-5.1); Sodium 136 mmol/L (135-145); Total Bilirubin 0.8 mg/dl (0.2-1.3); Total Cholesterol 130 mg/dl (50-199); Total Protein 6.4 g/dl (6.3-8.2); Triglyceride 153 mg/dl (10-149); Very Low Density Lipoprotein 30 mg/dl (0-30); eGFR > 60.00
[2024-12-09 04:28] LABS: Troponin I 0.039 ng/ml
--- NOTE | 2024-12-09 05:02 | W.PN.UPDATE ---
Update Note
Progress Note Update
Pt c/o chest pain, rates at 6 out of 10, aching on left side of his chest. PRN nitro given with no relief. BP 134/75 prior to Nitro, went to 97/61. Pt states pain is when he takes deep breaths. Ordered Troponin and EKG. BP 125/78, HR 103. Morphine 1
mg IV x 1 given, patient stated pain less, went from 8 out of 10 to 4 out of 10. Denies SOB, lightheadedness, or dizziness.
3 am - Troponin resulted, 0.039 (previously 0.031->0.025 -> 0.033 -> 0.039, ordered serial troponins.
Cardiology previously consulted.
[2024-12-09 07:39] LABS: Glucose - Point of Care 139 mg/dl (70-99)
[2024-12-09] MEDS: PULMICORT 0.5 MG INH ×2 (08:16→20:16)
[2024-12-09] MEDS: DUONEB 3 ML INH (08:16)
[2024-12-09] MEDS: NOVOLOG FLEXPEN-LOW RESISTANCE SC (09:14)
[2024-12-09] MEDS: FLOMAX 0.4 MG PO (09:14)
[2024-12-09] MEDS: LASIX 40 MG PO (09:15)
[2024-12-09] MEDS: LIPITOR 80 MG PO (09:15)
[2024-12-09] MEDS: LOW STRENGTH ASPIRIN 81 MG PO (09:15)
[2024-12-09] MEDS: ProAmatine 10 MG PO ×2 (09:15→12:25)
[2024-12-09] MEDS: WELLBUTRIN XL (24 hour extended release) 300 MG PO (09:15)
[2024-12-09] MEDS: PROTONIX 40 MG PO (09:15)
[2024-12-09] MEDS: DELTASONE 10 MG PO (09:16)
[2024-12-09] MEDS: BENTYL 10 MG PO (09:16)
[2024-12-09] MEDS: KCL 20 MEQ PO (09:16)
[2024-12-09] MEDS: ZOLOFT 50 MG PO (09:16)
[2024-12-09] MEDS: OMNICEF 300 MG PO ×2 (09:16→20:10)
[2024-12-09] MEDS: VITAMIN C 500 MG PO (09:16)
[2024-12-09] MEDS: FLUSH (NSS) 1 FLUSH IV ×2 (09:17→15:08)
--- NOTE | 2024-12-09 10:40 | CON.CAR ---
Addendum entered and electronically signed by Tab Woo MD 12/09/24 13:39:
Trazodone can also contribute to orthostasis, will discontinue.
Addendum entered and electronically signed by Tab Woo MD 12/09/24 13:37:
69-year-old medically complex with longstanding CAD and revascularization, admitted now with chest discomfort and heart rate around 100, with background history of of CABG, atrial flutter ablation, PAF, PAD and orthostasis. Currently residing at
[facility].
PMH/PSH: Chronic HFrEF with mildly reduced EF, CAD with CABG 1998, non-STEMI with patent grafts but jeopardized [place] circulation 2019, nonsustained VT, orthostasis, atrial flutter with ablation 2017, PAF, not anticoagulated, PAD, endovascular AAA
repair, bilateral femoral endarterectomies and profundoplasty 2017, diabetes, still smoking, hypertension, hyperlipidemia, right bundle branch block duodenal ulcer with microperforation 2017, history of alcohol abuse now abstinent, cholecystectomy,
tonsillectomy, IBS
Current meds: Aspirin 81 mg a day, atorvastatin 80 mg a day, Pulmicort, Wellbutrin ER 300 mg a day, Omnicef, dicyclomine, furosemide 40 mg a day, midodrine 10 mg 3 times daily, pantoprazole, potassium 20 mill colons daily, sertraline, tamsulosin,
Lantus, carvedilol 3.125 mg twice daily just added, Augmentin
133/78, heart rate 109, chronically ill-appearing, head neck exam unremarkable, lungs relatively clear, no obvious murmurs, JVD okay, probable hepatomegaly, obese, no edema, diminished pulses, neuro nonfocal, appears comfortable despite chronic
ill-appearing
ECG sinus tachycardia, right bundle branch block, PVCs, PACs, consider lateral ischemia
White count 11.4, hemoglobin 12.4, platelets 232, potassium 3.6, CO2 31, BUN and creatinine 19 and 0.6, troponin 0.039 and 0.033
Echo August 2023: EF 45-50%, global hypokinesis, normal RV normal atria, mild mitral regurgitation, normal aortic valve, normal pulmonary artery pressure
Impression/Plan:
Note below reviewed, agree with findings, assessment, recommendations. Pertinent data reviewed and documented as above.
He presents with chest pain in the setting of a sinus tachycardia. This has been a longstanding problem exacerbated by his orthostatic hypotension. His chest pain results from the fact that his bypass grafts are patent but he has [place] CAD that
jeopardizes retrograde flow in the LAD and possibly circumflex distribution. Therefore he tolerates tachycardia very poorly. Beta-blockers are problematic given his orthostasis. He would be a great candidate for ivabradine, but unfortunately this
is cost prohibitive and he does not qualify per FDA indications.
There is no evidence of heart failure at the present time. We can consider a decrease in furosemide and this may reduce his rapid heart rate.
Bentyl is probably exacerbating his tachycardia and it is not clear that he needs it for IBS. We will stop this and this may help.
We will check an echocardiogram.
Given his longstanding history and comorbidities with poor functional status our strategy will be conservative. Troponin is only minimally detectable wWe can consider a sestamibi study but for now we will plan on holding off. Would like to avoid
the Bus Inspector.
Original Note:
Consultation
Consultation Request
Date/Time Consultation Requested: 12/08/24 at 2032
Date/Time Consultation Performed: 12/09/24 at 1041
Requesting Provider: Dr. Kaplan
Performing Provider: Dr. MILA Woo
Reason for Consultation: Chest pain
Medical History
-
History of Present Illness:
[facility] with [facility] and cardiology is now consulted. Patient saw Dr. Woo in the office 10/02/24 and was having orthostasis and falls, but overall stable and living with his sister. He then had a fall and was [facility]24 and afterwards went to [facility] for rehab. Patient unsure if he will be able to return to his sister's home due to his falls. Patient with generalized weakness and orthostasis. Patient is chronically on midodrine 10 mg TID. Patient's
orthostasis has made it difficult to medically manage his complex CAD. At time of his last cath in 2019 his LAD is functionally occluded with bridging collaterals, the GAR to LAD was patent, the diagonals were jeopardized filling retrograde, the
circumflex was occluded, and OM branch was filling via left to left collaterals, the JONO off the GAR was patent and the RCA was nondominant with a 90% proximal stenosis. It was felt that he generally does unwell with tachycardia, but due to
orthostasis we were unable to start BB. There is felt that he might be a candidate for ivabradine, but it would be cost prohibitive. Patient reports intermittent chest pain at home prior to living at [facility] and that he would take NTG SL with relief.
When he started with chest pain at [facility] yesterday there was no NTG SL order on his DEC so [facility] Troponin is up to 0.039. Patient was chest pain free upon arrival [facility], but he had more chest pain early this morning that was not
relieved by NTG SL. Patient was eventually given morphine 1 mg IV x1 with relief. He is pain free now.
PMH:
Chronic HFmrEF
CAD
s/p CABG 1998 at [facility] with GAR to LAD and free JONO Y graft from GAR to OM
NSTEMI with peak trop 0.4. cath showed progression of [place] CAD however patient bypass grafts 12/2019
h/o NSVT
h/o orthostatic hypotension
Paroxysmal atrial flutter s/p ablation in 2017
Paroxysmal atrial fibrillation
diagnosed during 12/2019 admission without known recurrence
Not chronically anticoagulated due to patient's choice and low burden of atrial arrhythmia
PVD with History of endovascular AAA repair and bilateral femoral artery endarterectomy and profundoplasty 07/2018
Type 2 diabetes
Active smoker, smoking 1-2 cigarettes a day, sometimes less
Hypertension
Hypercholesterolemia
Chronic right bundle-branch block
History of duodenal ulcer with microperforation in 2017
h/o daily ETOH use now abstinent
DNR
Past Medical History
Past Medical History: Other (in HPI)
Past Surgical History: Cardiac (CABG 1998, atrial flutter ablation 2017), Cholecystectomy, Tonsilectomy and Other (endovascular AAA repair 2017)
Social History
Tobacco: Smoker
Alcohol: None (he says he stopped drinking)
Drug: None
Personal: Single
Living: Alone
Family History
Family History: CAD and Cancer (lung cancer)
Allergies / Home Medications
Allergy/AdvReac Type Severity Reaction Status Date / Time
lisinopril Allergy throat Verified 12/05/24 14:51
closes
�Medication �Instructions �Recorded �Confirmed �Type
albuterol sulfate 90 mcg/actuation 2 puff inhalation R Q6HPRN PRN SOB 07/02/23 12/08/24 History
aerosol inhaler
atorvastatin 80 mg tablet 80 mg PO DAILY High cholesterol 07/02/23 12/08/24 History
dicyclomine 10 mg capsule 10 mg PO QID Gastrointestinal Issue 07/02/23 12/08/24 History
ipratropium 0.5 mg-albuterol 3 mg 3 ml inhalation R QIDPRN PRN SOB 07/02/23 12/08/24 History
(2.5 mg base)/3 mL nebulization
soln
pantoprazole 40 mg tablet,delayed 40 mg PO DAILY Gastrointestinal 07/02/23 12/08/24 History
release issue
tamsulosin 0.4 mg capsule 0.4 mg PO DAILY BPH 07/02/23 12/08/24 History
budesonide 0.5 mg/2 mL suspension 0.5 mg (2 mL) inhalation R BID 07/06/23 12/08/24 Rx
for nebulization copd #60 mL
aspirin 81 mg chewable tablet 81 mg PO DAILY #1 tab 09/10/23 12/08/24 Rx
(Children's Aspirin)
azithromycin 250 mg tablet 250 mg PO DAILY Infection #0 tabs 09/10/23 12/08/24 Rx
furosemide 40 mg tablet 40 mg PO DAILY #1 tab 09/10/23 12/08/24 Rx
prednisone 10 mg tablet 10 mg PO DAILY Anti-inflammatory 09/10/23 12/08/24 Rx
#0 tabs
ascorbic acid (vitamin C) 500 mg 500 mg PO DAILY 12/05/24 12/08/24 History
tablet (Vitamin C)
bupropion HCl 300 mg 24 hr tablet, 300 mg PO DAILY 12/05/24 12/08/24 History
extended release
nitroglycerin 0.4 mg sublingual 0.4 mg sublingual [id number] PRN 12/05/24 12/08/24 History
tablet (Nitrostat) chest pain
potassium chloride 20 mEq 20 meq PO DAILY 12/05/24 12/08/24 History
tablet,extended release(part/cryst)
sertraline 50 mg tablet 50 mg PO DAILY 12/05/24 12/08/24 History
trazodone 50 mg tablet 50 mg PO HSPRN PRN sleep 12/05/24 12/08/24 History
amoxicillin 875 mg tablet 875 mg PO Q12H 5 days #10 tabs 12/06/24 12/08/24 Rx
cefdinir 300 mg capsule 300 mg PO Q12H 8 days #16 caps 12/06/24 12/08/24 Rx
midodrine 10 mg tablet 10 mg PO TID #0 tabs 12/06/24 12/08/24 Rx
acetaminophen 325 mg tablet 650 mg PO Q4HPRN PRN mild 12/08/24 12/08/24 History
pain/fever
bisacodyl 10 mg rectal suppository 10 mg FL DAILYPRN PRN 3 days no 12/08/24 12/08/24 History
bm, mom ineffective
insulin glargine 100 unit/mL 3 unit SC HS 12/08/24 12/08/24 History
subcutaneous solution (Lantus
U-100 Insulin)
lorazepam 0.5 mg tablet 0.5 mg PO BIDPRN PRN sleep/anxiety 12/08/24 12/08/24 History
magnesium hydroxide 400 mg/5 mL 30 ml PO HSPRN PRN constipation 12/08/24 12/08/24 History
oral suspension (Milk of Magnesia)
Review of Systems
-
History Source: Patient
All other systems: Negative unless noted
Physical Exam
Vital Signs
Temp Pulse Resp BP Pulse Ox
97.8 F 107 16 144/88 99
12/09/24 07:30 12/09/24 09:15 12/09/24 08:19 12/09/24 09:15 12/09/24 09:13
GEN: No distress, awake, alert and oriented x3
HEENT: EOMI, MMM
LUNGS: Wearing oxygen at 3 L NC. No audible wheeze
CV: Sinus tachycardia on tele. Reg, S1/S2, no murmur
ABD: soft, BS+, NT, ND
EXT: No clubbing, cyanosis, lesions or edema B/L
NEURO: Gross non-focal
SKIN: Warm, dry and pink. No rash
Lab Results
12/09/24 03:16
12/09/24 03:16
Troponin I 0.039 ng/ml H* 12/09/24 03:16
Impression / Plan
-
PCP: Dr. Sheth as an outpatient. Dr. Renan Pedroza while at [facility]
Primary Credit Collection Specialist: Dr. MILA Woo
Impression:
Admitted with chest pain 12/08/23
Sinus tachycardia
Elevated Troponin
Chronic HFmrEF
CAD
s/p CABG 1998 at [facility] with GAR to LAD and free JONO Y graft from GAR to OM
NSTEMI with peak trop 0.4. cath showed progression of [place] CAD however patient bypass grafts 12/2019
h/o NSVT
h/o orthostatic hypotension
Paroxysmal atrial flutter s/p ablation in 2017
Paroxysmal atrial fibrillation
diagnosed during 12/2019 admission without known recurrence
Not chronically anticoagulated due to patient's choice and low burden of atrial arrhythmia
PVD with History of endovascular AAA repair and bilateral femoral artery endarterectomy and profundoplasty 07/2018
Type 2 diabetes
Active smoker, smoking 1-2 cigarettes a day, sometimes less
Hypertension
Hypercholesterolemia
Chronic right bundle-branch block
History of duodenal ulcer with microperforation in 2018
h/o daily ETOH use now abstinent
DNR
ECHO 12/2019: TDS, EF 55%, mild to mod cLVH, no significant valvular disease
ECHO 11/06/20: EF 60-65%, no RWMA, MAC, Trace MR, aortic root 3.7cm
Echo 08/04/21: EF 50%, normal regional wall motion, no significant valvular disease
Echo 09/06/2023: EF 45-50% with global hypokinesis, mild MR and PASP 25-30 mmHg
Plan:
-ECG reviewed by me is sinus tachycardia.
-Patient has previously had chest pain with sinus tachycardia and complex CABG anatomy as described. Previously unable to add BB due to frequent falls from orthostasis. Patient is now at [facility] for rehab and might be transitioning to long-term. Will
try adding Coreg 3.125 mg BID.
-If patient does transition to long-term at [facility] then it would be worth investigating the cost of adding ivabradine.
-Troponin peaked at 0.039. Will manage as a nonischemic myocardial Troponin elevation due to sinus tachycardia.
-He is stable on his usual oxygen at 3 L NC. No evidence of acute HF on CXR.
-Outpatient dose of Lasix was lowered to 20 mg daily at the 10/02/25 cardiology office visit, but was increased back to 40 mg daily during his last admission. Cont Lasix 40 mg PO daily and follow BP and Cre.
-EF 45-50% by last echo 09/06/23.
-Patient with known paroxysmal Afib/flutter, but is not chronically anticoagulated due ot frequent falls
HPI: Patient came to [facility] yesterday with chest pain and cardiology is now consulted. Patient saw Dr. Woo in the office 10/02/24 and was having orthostasis and falls, but overall stable and living with his sister. He then had a fall and was sent to
[facility] 12/05/24 and afterwards went to [facility] for rehab. Patient unsure if he will be able to return to his sister's home due to his falls. Patient with generalized weakness and orthostasis. Patient is chronically on midodrine 10 mg TID. Patient's
orthostasis has made it difficult to medically manage his complex CAD. At time of his last cath in 2019 his LAD is functionally occluded with bridging collaterals, the GAR to LAD was patent, the diagonals were jeopardized filling retrograde, the
circumflex was occluded, and OM branch was filling via left to left collaterals, the JONO off the GAR was patent and the RCA was nondominant with a 90% proximal stenosis. It was felt that he generally does unwell with tachycardia, but due to
orthostasis we were unable to start BB. There is felt that he might be a candidate for ivabradine, but it would be cost prohibitive. Patient reports intermittent chest pain at home prior to living at [facility] and that he would take NTG SL with relief.
When he started with chest pain at [facility] yesterday there was no NTG SL order on his DEC so [facility] Troponin is up to 0.039. Patient was chest pain free upon arrival [facility], but he had more chest pain early this morning that was not
relieved by NTG SL. Patient was eventually given morphine 1 mg IV x1 with relief. He is pain free now.
[2024-12-09] MEDS: AUGMENTIN 875 MG/125 MG 1 TABLET PO ×2 (11:12→23:04)
[2024-12-09 11:50] LABS: Glucose - Point of Care 290 mg/dl (70-99)
[2024-12-09 12:02] LABS: Troponin I 0.033 ng/ml
[2024-12-09] MEDS: COREG 3.125 MG PO ×2 (12:27→20:09)
[2024-12-09] MEDS: NOVOLOG FLEXPEN-LOW RESISTANCE 3 UNITS SC (12:38)
[2024-12-09] MEDS: TYLENOL 650 MG PO ×2 (14:59→16:14)
[2024-12-09] MEDS: LOPRESSOR 5 MG IV (15:07)
--- NOTE | 2024-12-09 15:26 | PTCARENOTE ---
Called to room @ 1445 by pt, c/o Lt anterior CP '7/10' pain increased with deep breath. Pt in NAD. On nc 3 lpm- pulse ox 96%, no c/o SOB. BP 125/90; HR 95; telemetry:NSR/sinus tachy. NTG SL given x2; BP decreased to 93/54; pt states 'no relief'
from SL NTG. Dr. Fiordaliza Woo notified. 12 lead EKG done; Metoprolol 5 mg IV given. HR decreased to 87; BP 126/76. Pt states he is 'feeling better- pain is 3/10'. Dr. Woo notified. Will continue to monitor.
--- NOTE | 2024-12-09 15:40 | W.PN.HOSP.TC ---
Today's Communication/Plan
-
Medications being adjusted to help with chest pain, appreciate cardiology
Assessment / Plan
Assessment / Plan
Physical Exam
General: No Apparent Distress, Comfortable and Conversant
HEENT: Normocephalic and Moist mucous membranes
Respiratory: Decreased Breath Sounds
Cardiac: S1/S2 and Regular Rhythm
GI: Soft, Non Tender and Normal Bowel Sounds. No CVA tenderness.
Musculoskeletal: No Cyanosis
Skin: Warm and Dry
Neuro: Awake, Alert, AO x 3, No Motor Deficits, Nonfocal/grossly intact, Cranial Nerves Intact and No Sensory Deficits
Psych: Calm and Intact Judgment/Insight
Assessment/Plan
Left-Sided Chest Pain in the setting of a sinus tachycardia
-Per cardiology, chest pain results from the fact that his bypass grafts are patent but he has [place] CAD that jeopardizes retrograde flow in the LAD and possibly circumflex distribution
-Bentyl is probably exacerbating his tachycardia and it is not clear that he needs it for IBS -- cardiology is stopping this medication
-Check echo
-No cardiac cath at this time
-Stopping bentyl, adding Coreg will hopefully help chest pain - cardiology might add Ranexa
Recent presentation with multiple falls and severe weakness
Sepsis Secondary to UTI
Recent UTI
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
-Continue Cefdinir 300 mg Q12H for 8 more days (starting 12/07/23) and Augmentin
-Patient is already on chronic Azithromycin outpatient
-IV fluids boluses given with improvement
-Follow blood cultures -- no growth to date
-CK normal -- no rhabdomyolysis
History of Severe COPD with acute respiratory failure
-Currently on patient's home baseline oxygen of nasal cannula 3 L
-Followed by Dr. Landeros outpatient
-Continue patient's outpatient prednisone, Azithromycin, bronchodilators and ICS
Chronic CHFmrEF
-Continue Lasix
-Daily weights
-I's and O's
Coronary Artery Disease
-s/p CABG 1998 at [facility] with GAR to LAD and free JONO Y graft from GAR to OM
-NSTEMI 12/2019 with peak trop 0.4. cath showed progression of [place] CAD however patient bypass grafts 12/2019
-Continue Aspirin 81 mg daily and Atorvastatin 80 mg daily
Orthostatic Hypotension
Paroxysmal atrial flutter s/p ablation in 2018
Paroxysmal atrial fibrillation
-Not chronically anticoagulated due to patient's choice and low burden of atrial arrhythmia
-Monitor on tele given infection and sepsis
History of NSVT
Type 2 Diabetes Mellitus
- Insulin sliding scale for now -- continue Insulin
Hypertension
Hypertensive Urgency
-Monitor BP via vital signs
Hyperlipidemia
-Continue home Atorvastatin
History of Smoking
Chronic right bundle-branch block
History of duodenal ulcer with microperforation in 2018
h/o daily ETOH
GERD.
Anxiety
Overweight
L1 vertebral fracture.
PVD with History of endovascular AAA repair and bilateral femoral artery endarterectomy and profundoplasty 07/2018
DVT Prophylaxis: Lovenox
Code Status: DNR/DNI
Anticipated Discharge: 24 - 48 hours
Subjective/Interval History
-
Date of Service: December 09, 2024
Patient was seen and examined. He reported that his chest wall pain had improved, later in the day it came back however.
Objective Data
-
Labs:
Laboratory Results
12/09/24
03:16
WBC 11.4 H
Hgb 12.4 L
Hct 37.9 L
Plt Count 232
Sodium 136
Potassium 3.6
Chloride 97 L
Carbon Dioxide 31 H
BUN 19
Creatinine 0.6 L
Glucose 142 H
Calcium 9.0
Total Bilirubin 0.8
AST 30
ALT 28
Alkaline Phosphatase 95
Vital Signs:
Vital Signs
Temp Pulse Resp BP Pulse Ox
98.2 F 83 16 110/69 97
12/09/24 15:25 12/09/24 15:25 12/09/24 15:25 12/09/24 15:25 12/09/24 15:25
I&O
12/08/24 12/09/24 12/10/24
06:59 06:59 06:59
Output Total 275 / 275
Balance -275 / -275
--- NOTE | 2024-12-09 15:42 | PTCARENOTE ---
Pt states Lt CP still ' ; c/o headache from SL NTG; Tylenol 650 mg PO given. Telemetry: NSR with PAC's. VSS. Maintained on nc 3 lpm- pulse ox 97%, no C?O SOB. Abd large, soft, estuardo PO. Voiding in urinal without difficulty. Resting quietly
at present. DR. Mcguire notified of pt's episode of CP and treatment ordered by Dr. Smiley Woo. Will continue to monitor.
--- NOTE | 2024-12-09 16:48 | PTCARENOTE ---
Pt resting comfortably at present; c/o mild headache from earlier SL NTG. Telemetry-currently NSR with PAC's; HR 70's- 80-'s. Will continue to monitor.
[2024-12-09 16:52] LABS: Glucose - Point of Care 208 mg/dl (70-99)
[2024-12-09] MEDS: ProAmatine PO (17:10)
[2024-12-09] MEDS: LOVENOX 40 MG SC (17:15)
[2024-12-09] MEDS: NOVOLOG FLEXPEN-LOW RESISTANCE 2 UNITS SC (17:16)
[2024-12-09 21:44] LABS: Glucose - Point of Care 210 mg/dl (70-99)
[2024-12-09] MEDS: LANTUS 0.03 UNITS SC (21:46)
[2024-12-09] MEDS: ATIVAN 0.5 MG PO (21:46)
[2024-12-09] MEDS: TYLENOL 1000 MG PO (23:04)
[2024-12-10 03:30] VITALS: BP 157/70
[2024-12-10 06:00] VITALS: BMI 26.9
[2024-12-10 06:56] LABS: Hematocrit 37.4 % (39.0-52.0); Hemoglobin 12.1 g/dL (13.0-18.0); Mean Corp Hgb Conc. 32.4 g/dL (33.0-37.0); Mean Corpuscular Volume 92.6 fL (80.0-94.0); Mean Platelet Volume 9.4 fL (7.4-10.4); Platelet Count 225 10^3/uL (130-400); Red Blood Cell Count 4.04 10^6/uL (4.70-6.10); Red Cell Dist. Width 12.9 % (11.5-14.5); White Blood Cell Count 11.9 10^3/uL (4.8-10.8)
--- NOTE | 2024-12-10 07:14 | W.PN.HOSP.TC ---
Today's Communication/Plan
-
SNF Auth pending
Chest Pain Resolved
Assessment / Plan
Assessment / Plan
Physical Exam
General: No Apparent Distress, Comfortable and Conversant
HEENT: Normocephalic and Moist mucous membranes
Respiratory: Decreased Breath Sounds
Cardiac: S1/S2 and Regular Rhythm
GI: Soft, Non Tender and Normal Bowel Sounds. No CVA tenderness.
Musculoskeletal: No Cyanosis
Skin: Warm and Dry
Neuro: Awake, Alert, AO x 3, No Motor Deficits, Nonfocal/grossly intact, Cranial Nerves Intact and No Sensory Deficits
Psych: Calm and Intact Judgment/Insight
Assessment/Plan
Left-Sided Chest Pain in the setting of a sinus tachycardia
-Per cardiology, chest pain resulted from the fact that his bypass grafts are patent but he has [place] CAD that jeopardizes retrograde flow in the LAD and possibly circumflex distribution
-Bentyl has been probably exacerbating his tachycardia and it is not clear that he needs it for IBS -- cardiology stopped Bentyl and patient's symptoms improved
-Echocardiogram to be done on 12/11/24
-No cardiac cath at this time
-Stopping bentyl, new medication Coreg added, which will hopefully help chest pain - cardiology might add Ranexa
Recent presentation with multiple falls and severe weakness
Sepsis Secondary to UTI
Recent UTI
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
-Continue Cefdinir 300 mg Q12H through 12/15/23). Completed Augmentin.
-Patient is already on chronic Azithromycin outpatient
-IV fluids boluses given with improvement
History of Severe COPD with acute respiratory failure
-Currently on patient's home baseline oxygen of nasal cannula 3 L
-Followed by Dr. Landeros outpatient
-Continue patient's outpatient prednisone, Azithromycin, bronchodilators and ICS
Chronic CHFmrEF
-Continue Lasix
-Daily weights
-I's and O's
Coronary Artery Disease
-s/p CABG 1998 at [facility] with GAR to LAD and free OJNO Y graft from GAR to OM
-NSTEMI 12/2019 with peak trop 0.4. cath showed progression of [place] CAD however patient bypass grafts 12/2019
-Continue Aspirin 81 mg daily and Atorvastatin 80 mg daily
Orthostatic Hypotension
Paroxysmal atrial flutter s/p ablation in 2018
Paroxysmal atrial fibrillation
-Not chronically anticoagulated due to patient's choice and low burden of atrial arrhythmia
-Monitor on tele given infection and sepsis
History of NSVT
Type 2 Diabetes Mellitus
- Insulin sliding scale for now -- continue Insulin
Hypertension
Hypertensive Urgency
-Monitor BP via vital signs
Hyperlipidemia
-Continue home Atorvastatin
History of Smoking
Chronic right bundle-branch block
History of duodenal ulcer with microperforation in 2018
h/o daily ETOH
GERD.
Anxiety
Overweight
L1 vertebral fracture.
PVD with History of endovascular AAA repair and bilateral femoral artery endarterectomy and profundoplasty 07/2018
DVT Prophylaxis: Lovenox
Code Status: DNR/DNI
Anticipated Discharge: Within 24 hours
Subjective/Interval History
-
Date of Service: December 10, 2024
Patient was seen and examined. He reported his chest pain has resolved. He denied any other complaints.
Objective Data
-
Labs:
Laboratory Results
12/10/24
06:26
WBC 11.9 H
Hgb 12.1 L
Hct 37.4 L
Plt Count 225
Sodium Pending
Potassium Pending
Chloride Pending
Carbon Dioxide Pending
BUN Pending
Creatinine Pending
Glucose Pending
Calcium Pending
Vital Signs:
Vital Signs
Temp Pulse Resp BP Pulse Ox
97.5 F 81 18 157/70 99
12/10/24 03:30 12/10/24 03:30 12/10/24 03:30 12/10/24 03:30 12/10/24 03:30
I&O
12/09/24 12/10/24 12/11/24
06:59 06:59 06:59
Intake Total 1140 / 1140
Output Total 275 / 275 1375 / 1375
Balance -275 / -275 -235 / -235
[2024-12-10] MEDS: LIDOCAINE 4% PATCH 1 PATCH TOPICAL (07:22)
[2024-12-10 07:41] LABS: Blood Urea Nitrogen 20 mg/dl (9-20); Calcium 9.1 mg/dl (8.4-10.2); Carbon Dioxide 31 mmol/L (22-30); Chloride 96 mmol/L (98-107); Estimated Creatinine Clearance 92 ml/min; Glucose 129 mg/dl (70-99); Magnesium 1.7 mg/dl (1.6-2.3); Potassium 3.6 mmol/L (3.5-5.1); Sodium 136 mmol/L (135-145); eGFR > 60.00
[2024-12-10 07:55] VITALS: BP 123/81
--- NOTE | 2024-12-10 07:55 | CM ---
Patient seen at bedside. Patient is from [facility] as a Short term patient with auth. Patient plan is to return to SNF when medically appropriate. Patient was admitted to [facility] 12/06/24. CM called to SNF to confirm ability to accept, VM left. CM will
continue to follow for discharge planning needs.
Plan; return to SNF; [facility] will need updated auth. Confirm with Admissions
[2024-12-10] MEDS: PULMICORT 0.5 MG INH ×2 (08:32→19:13)
[2024-12-10] MEDS: DUONEB 3 ML INH (08:32)
[2024-12-10 08:41] LABS: Glucose - Point of Care 118 mg/dl (70-99)
[2024-12-10] MEDS: NOVOLOG FLEXPEN-LOW RESISTANCE SC (09:00)
[2024-12-10] MEDS: OMNICEF 300 MG PO ×2 (10:15→21:00)
[2024-12-10] MEDS: LIPITOR 80 MG PO (10:16)
[2024-12-10] MEDS: WELLBUTRIN XL (24 hour extended release) 300 MG PO (10:16)
[2024-12-10] MEDS: ProAmatine 10 MG PO ×2 (10:16→17:28)
[2024-12-10] MEDS: TYLENOL 1000 MG PO ×3 (10:16→23:21)
[2024-12-10] MEDS: PROTONIX 40 MG PO (10:16)
[2024-12-10] MEDS: LOW STRENGTH ASPIRIN 81 MG PO (10:17)
[2024-12-10] MEDS: COREG 3.125 MG PO ×2 (10:18→21:00)
[2024-12-10] MEDS: KCL 20 MEQ PO (10:18)
[2024-12-10] MEDS: LASIX 20 MG PO (10:20)
[2024-12-10] MEDS: ZOLOFT 50 MG PO (10:21)
[2024-12-10] MEDS: FLOMAX 0.4 MG PO (10:21)
[2024-12-10] MEDS: VITAMIN C 500 MG PO (10:21)
[2024-12-10 11:50] VITALS: BP 152/86
[2024-12-10 12:36] LABS: Glucose - Point of Care 179 mg/dl (70-99)
[2024-12-10] MEDS: ProAmatine PO (13:21)
[2024-12-10] MEDS: NOVOLOG FLEXPEN-LOW RESISTANCE 1 UNITS SC ×2 (13:22→17:26)
[2024-12-10] MEDS: ATIVAN 0.5 MG PO ×2 (15:03→23:22)
[2024-12-10 15:55] VITALS: BP 127/79
[2024-12-10 17:21] LABS: Glucose - Point of Care 175 mg/dl (70-99)
[2024-12-10] MEDS: LOVENOX 40 MG SC (17:28)
--- NOTE | 2024-12-10 19:46 | W.PN.CARDCBS ---
Today's Communication / Plan
-
Improved chest pain with better heart rate control with medication changes
No additional changes recommended at this time
Discharge planning
Impression / Plan
-
PCP: Dr. Sheth as an outpatient. Dr. Renan Pedroza while at [facility]
Primary Site Safety Manager: Dr. MILA Woo
Impression:
Admitted with chest pain 12/08/23
Sinus tachycardia
Elevated Troponin
Chronic HFmrEF
CAD
s/p CABG 1998 at [facility] with GAR to LAD and free JONO Y graft from GAR to OM
NSTEMI with peak trop 0.4. cath showed progression of [place] CAD however patient bypass grafts 12/2019
h/o NSVT
h/o orthostatic hypotension
Paroxysmal atrial flutter s/p ablation in 2017
Paroxysmal atrial fibrillation
diagnosed during 12/2019 admission without known recurrence
Not chronically anticoagulated due to patient's choice and low burden of atrial arrhythmia
PVD with History of endovascular AAA repair and bilateral femoral artery endarterectomy and profundoplasty 07/2018
Type 2 diabetes
Active smoker, smoking 1-2 cigarettes a day, sometimes less
Hypertension
Hypercholesterolemia
Chronic right bundle-branch block
History of duodenal ulcer with microperforation in 2017
h/o daily ETOH use now abstinent
DNR
ECHO 12/2019: TDS, EF 55%, mild to mod cLVH, no significant valvular disease
ECHO 11/06/20: EF 60-65%, no RWMA, MAC, Trace MR, aortic root 3.7cm
Echo 08/04/21: EF 50%, normal regional wall motion, no significant valvular disease
Echo 09/06/2023: EF 45-50% with global hypokinesis, mild MR and PASP 25-30 mmHg
Plan:
Clinically he is improved, without chest pain.
Given his coronary anatomy, he tolerates tachycardia poorly and with addition of carvedilol, discontinuation of Bentyl and trazodone his heart rate is improved. Orthostasis seems well-controlled. No evidence of heart failure.
As a result he is no longer having chest discomfort.
Will make no changes in his regimen at this time.
Okay to begin discharge planning from cardiac standpoint
We will arrange for cardiac follow-up.
HPI: Patient came to [facility] yesterday with chest pain and cardiology is now consulted. Patient saw Dr. Woo in the office 10/02/24 and was having orthostasis and falls, but overall stable and living with his sister. He then had a fall and was sent to
[facility] 12/05/24 and afterwards went to [facility] for rehab. Patient unsure if he will be able to return to his sister's home due to his falls. Patient with generalized weakness and orthostasis. Patient is chronically on midodrine 10 mg TID. Patient's
orthostasis has made it difficult to medically manage his complex CAD. At time of his last cath in 2019 his LAD is functionally occluded with bridging collaterals, the GAR to LAD was patent, the diagonals were jeopardized filling retrograde, the
circumflex was occluded, and OM branch was filling via left to left collaterals, the JONO off the GAR was patent and the RCA was nondominant with a 90% proximal stenosis. It was felt that he generally does unwell with tachycardia, but due to
orthostasis we were unable to start BB. There is felt that he might be a candidate for ivabradine, but it would be cost prohibitive. Patient reports intermittent chest pain at home prior to living at [facility] and that he would take NTG SL with relief.
When he started with chest pain at [facility] yesterday there was no NTG SL order on his DEC so he was sent to [facility]. Troponin is up to 0.039. Patient was chest pain free upon arrival to [facility], but he had more chest pain early this morning that was not
relieved by NTG SL. Patient was eventually given morphine 1 mg IV x1 with relief. He is pain free now.
Progress Note - Site Safety Manager
Subjective
Date of Service: December 10, 2024:
He says he feels better, no further chest pain
Medications: Aspirin 81 mg a day, atorvastatin 80 mg a day, Pulmicort, Wellbutrin, Omnicef, midodrine 10 3 times daily, pantoprazole 40 a day, potassium 20 mill equivalents daily, sertraline 50 mg a day, tamsulosin, Lovenox, Lantus, carvedilol 3.125
twice daily, furosemide 20 mg a day, Bentyl and trazodone have been stopped
127/80, pulse 86, respirate 16, afebrile, weight is 77.8 kg, up 0.7 kg, chronically ill-appearing, head neck exam unremarkable, diminished breath sounds with occasional rhonchi regular rate and rhythm without murmurs JVD okay abdomen benign, not
much edema
chest CT without pulmonary embolus and no active disease
Hemoglobin 12.1, white count 11.9, CO2 31, BUN and creatinine 20 and 0.7, potassium 3.6,
Telemetry: Heart rate better now in the 80
Objective
Labs:
12/10/24 06:26
12/10/24 06:26
Labs
Hgb 12.1 g/dL (13.0-18.0) L 12/10/24 06:26
Hct 37.4 % (39.0-52.0) L 12/10/24 06:26
Plt Count 225 10^3/uL (130-400) 12/10/24 06:26
Sodium 136 mmol/L (135-145) 12/10/24 06:26
Potassium 3.6 mmol/L (3.5-5.1) 12/10/24 06:26
BUN 20 mg/dl (9-20) 12/10/24 06:26
Creatinine 0.7 mg/dL (0.7-1.3) 12/10/24 06:26
Glucose 129 mg/dl (70-99) H 12/10/24 06:26
Troponins
12/08/24 12/08/24 12/08/24
12:39 16:13 20:59
Troponin I 0.031 0.025 0.033 D
12/09/24 12/09/24 12/09/24
00:22 03:16 10:59
Troponin I Cancelled 0.039 H* 0.033
12/09/24 12/09/24
15:00 21:00
Troponin I Cancelled Cancelled
Vital Signs and I&O:
Vital Signs
Temp Pulse Resp BP Pulse Ox
36.7 C 86 16 127/79 96
12/10/24 15:55 12/10/24 19:16 12/10/24 19:16 12/10/24 15:55 12/10/24 19:16
Vital Signs
Temp Pulse Resp BP Pulse Ox
36.7 C 86 16 127/79 96
12/10/24 15:55 12/10/24 19:16 12/10/24 19:16 12/10/24 15:55 12/10/24 19:16
Intake & Output
12/08/24 12/09/24 12/10/24 12/11/24
07:59 07:59 07:59 07:59
Intake Total 1140 / 1140 870 / 870
Output Total 275 / 275 1375 / 1375 750 / 750
Balance -275 / -275 -235 / -235 120 / 120
Physical Exam
Physical Exam
See above
[2024-12-10 19:55] VITALS: BP 143/83
[2024-12-10 21:14] LABS: Glucose - Point of Care 263 mg/dl (70-99)
[2024-12-10] MEDS: LANTUS 0.03 UNITS SC (21:50)
[2024-12-10 23:53] VITALS: BP 172/85
[2024-12-11] VITALS (8 sets, daily range): BP systolic 105–166; BP diastolic 61–95; BMI 27.2
[2024-12-11] MEDS: APRESOLINE 10 MG IV (03:30)
[2024-12-11] MEDS: DUONEB 3 ML INH ×4 (03:59→19:29)
[2024-12-11 07:02] LABS: Hematocrit 37.4 % (39.0-52.0); Hemoglobin 12.1 g/dL (13.0-18.0); Mean Corp Hgb Conc. 32.4 g/dL (33.0-37.0); Mean Corpuscular Hgb 29.7 pg (27.0-31.0); Mean Corpuscular Volume 91.9 fL (80.0-94.0); Mean Platelet Volume 9.7 fL (7.4-10.4); Platelet Count 222 10^3/uL (130-400); Red Blood Cell Count 4.07 10^6/uL (4.70-6.10); Red Cell Dist. Width 12.8 % (11.5-14.5); White Blood Cell Count 10.2 10^3/uL (4.8-10.8)
[2024-12-11] MEDS: PULMICORT 0.5 MG INH ×2 (07:09→19:29)
[2024-12-11 07:29] LABS: Blood Urea Nitrogen 18 mg/dl (9-20); Calcium 9.1 mg/dl (8.4-10.2); Carbon Dioxide 29 mmol/L (22-30); Chloride 98 mmol/L (98-107); Estimated Creatinine Clearance 92 ml/min; Glucose 141 mg/dl (70-99); Magnesium 1.7 mg/dl (1.6-2.3); Potassium 3.5 mmol/L (3.5-5.1); Sodium 135 mmol/L (135-145); eGFR > 60.00
[2024-12-11 07:46] LABS: Glucose - Point of Care 153 mg/dl (70-99)
[2024-12-11] MEDS: PROTONIX 40 MG PO (08:09)
[2024-12-11] MEDS: LOW STRENGTH ASPIRIN 81 MG PO (08:09)
[2024-12-11] MEDS: LIPITOR 80 MG PO (08:09)
[2024-12-11] MEDS: WELLBUTRIN XL (24 hour extended release) 300 MG PO (08:09)
[2024-12-11] MEDS: COREG 3.125 MG PO ×2 (08:10→20:16)
[2024-12-11] MEDS: ZOLOFT 50 MG PO (08:10)
[2024-12-11] MEDS: FLOMAX 0.4 MG PO (08:10)
[2024-12-11] MEDS: TYLENOL 1000 MG PO ×3 (08:10→23:00)
[2024-12-11] MEDS: LASIX 20 MG PO (08:10)
[2024-12-11] MEDS: KCL 20 MEQ PO (08:11)
[2024-12-11] MEDS: VITAMIN C 500 MG PO (08:11)
[2024-12-11] MEDS: OMNICEF 300 MG PO ×2 (08:11→20:16)
[2024-12-11] MEDS: NOVOLOG FLEXPEN-LOW RESISTANCE 1 UNITS SC ×2 (08:13→17:37)
[2024-12-11] MEDS: LIDOCAINE 4% PATCH 1 PATCH TOPICAL (08:13)
[2024-12-11] MEDS: ProAmatine PO ×2 (08:14→12:44)
--- NOTE | 2024-12-11 09:10 | W.PN.CARDCBS ---
Addendum entered and electronically signed by Tab Woo MD 12/11/24 17:25:
He feels well, no further chest discomfort
Medications: Albuterol, Pulmicort, Omnicef, DuoNebs, aspirin 81 mg a day, atorvastatin 80 mg a day, Wellbutrin ER 300 mg a day, midodrine 10 mg 3 times daily, pantoprazole 40 mg a day, potassium 20 mill equivalents daily, sertraline 50 mg a day,
tamsulosin 0.4 mg a day, subcu Lovenox, Lantus 3 units daily, carvedilol 3.125 twice daily, furosemide 20 mg a day, lidocaine patch
105/61, pulse 94, respiratory rate 18, afebrile, sats 98, intake and output roughly equal, weight is 78.6 kg, up 0.8 kg, Chronically ill-appearing, lungs are clear, regular rate and rhythm, extremities without much edema, distal pulses diminished.
Hemoglobin is 12.1, white count is 10.2, potassium is 3.5, BUN and creatinine are 18 and 0.7
Telemetry: Heart rate in the 80s to 90s, occasional ectopics no sustained arrhythmias
Impression: See below
Plan:
He seems improved with low-dose beta-renato and withdrawal of trazodone and Bentyl. No further chest discomfort with better control of heart rate. Okay for transfer back to [facility].
Original Note:
Today's Communication / Plan
-
Outpatient doses of Bentyl and trazodone stopped, would not restart due to orthostasis
New to Coreg 3.125 mg BID
Cont lower dose of Lasix 20 mg daily
Stable for transfer back to [facility] from cardiology perspective and f/u arranged
Impression / Plan
-
PCP: Dr. Sheth as an outpatient. Dr. Renan Pedroza while at [facility]
Primary Domestic Violence Advocate: Dr. MILA Woo
Impression:
Admitted with chest pain 12/08/23
Sinus tachycardia
Elevated Troponin
Chronic HFmrEF
CAD
s/p CABG 1998 at [facility] with GAR to LAD and free JONO Y graft from GAR to OM
NSTEMI with peak trop 0.4. cath showed progression of [place] CAD however patient bypass grafts 12/2019
h/o NSVT
h/o orthostatic hypotension
Paroxysmal atrial flutter s/p ablation in 2017
Paroxysmal atrial fibrillation
diagnosed during 12/2019 admission without known recurrence
Not chronically anticoagulated due to patient's choice and low burden of atrial arrhythmia
PVD with History of endovascular AAA repair and bilateral femoral artery endarterectomy and profundoplasty 07/2018
Type 2 diabetes
Active smoker, smoking 1-2 cigarettes a day, sometimes less
Hypertension
Hypercholesterolemia
Chronic right bundle-branch block
History of duodenal ulcer with microperforation in 2017
h/o daily ETOH use now abstinent
DNR
ECHO 12/2019: TDS, EF 55%, mild to mod cLVH, no significant valvular disease
ECHO 11/06/20: EF 60-65%, no RWMA, MAC, Trace MR, aortic root 3.7cm
Echo 08/04/21: EF 50%, normal regional wall motion, no significant valvular disease
Echo 09/06/2023: EF 45-50% with global hypokinesis, mild MR and PASP 25-30 mmHg
Plan:
-Med changes from the weekend reviewed and patient knew them off the top of his head. Outpatient doses of trazodone and Bentyl were stopped for possible contribution to orthostasis.
-Patient was restarted on Coreg 3.125 mg BID which had been discontinued in the past due to orthostasis.
-No recurrence of chest pain. Chest pain thought to be related to sinus tachycardia on admission. Patient has previously had chest pain with sinus tachycardia and complex CABG anatomy as described.
-Troponin peaked at 0.039. Will manage as a nonischemic myocardial Troponin elevation due to sinus tachycardia.
-He is stable on his usual oxygen at 3 L NC.
-No evidence of acute HF. Outpatient dose of Lasix was lowered to 20 mg daily at the 10/02/25 cardiology office visit, but was increased back to 40 mg daily during his last admission. Recommend Lasix 20 mg PO daily, which he is currently ordered, and
this dose should be continued upon d/c.
-EF 45-50% by last echo 09/06/23.
-Patient with known paroxysmal Afib/flutter, but is not chronically anticoagulated due to frequent falls
HPI: Patient came to [facility] yesterday with chest pain and cardiology is now consulted. Patient saw Dr. Woo in the office 10/02/24 and was having orthostasis and falls, but overall stable and living with his sister. He then had a fall and was sent to
[facility] 12/05/24 and afterwards went to [facility] for rehab. Patient unsure if he will be able to return to his sister's home due to his falls. Patient with generalized weakness and orthostasis. Patient is chronically on midodrine 10 mg TID. Patient's
orthostasis has made it difficult to medically manage his complex CAD. At time of his last cath in 2019 his LAD is functionally occluded with bridging collaterals, the GAR to LAD was patent, the diagonals were jeopardized filling retrograde, the
circumflex was occluded, and OM branch was filling via left to left collaterals, the JONO off the GAR was patent and the RCA was nondominant with a 90% proximal stenosis. It was felt that he generally does unwell with tachycardia, but due to
orthostasis we were unable to start BB. There is felt that he might be a candidate for ivabradine, but it would be cost prohibitive. Patient reports intermittent chest pain at home prior to living at [facility] and that he would take NTG SL with relief.
When he started with chest pain at [facility] yesterday there was no NTG SL order on his DEC so he was sent to [facility]. Troponin is up to 0.039. Patient was chest pain free upon arrival to [facility], but he had more chest pain early this morning that was not
relieved by NTG SL. Patient was eventually given morphine 1 mg IV x1 with relief. He is pain free now.
Progress Note - Domestic Violence Advocate
Subjective
Date of Service: December 11, 2024
Denies recurrence of chest pain
Objective
Labs:
12/11/24 05:43
12/11/24 05:43
Labs
Hgb 12.1 g/dL (13.0-18.0) L 12/11/24 05:43
Hct 37.4 % (39.0-52.0) L 12/11/24 05:43
Plt Count 222 10^3/uL (130-400) 12/11/24 05:43
Sodium 135 mmol/L (135-145) 12/11/24 05:43
Potassium 3.5 mmol/L (3.5-5.1) 12/11/24 05:43
BUN 18 mg/dl (9-20) 12/11/24 05:43
Creatinine 0.7 mg/dL (0.7-1.3) 12/11/24 05:43
Glucose 141 mg/dl (70-99) H 12/11/24 05:43
Troponins
12/08/24 12/08/24 12/08/24
12:39 16:13 20:59
Troponin I 0.031 0.025 0.033 D
12/09/24 12/09/24 12/09/24
00:22 03:16 10:59
Troponin I Cancelled 0.039 H* 0.033
12/09/24 12/09/24
15:00 21:00
Troponin I Cancelled Cancelled
Vital Signs and I&O:
Vital Signs
Temp Pulse Resp BP Pulse Ox
98.0 F 112 18 149/95 98
12/11/24 07:30 12/11/24 08:14 12/11/24 07:30 12/11/24 08:14 12/11/24 07:30
Vital Signs
Temp Pulse Resp BP Pulse Ox
98.0 F 112 18 149/95 98
12/11/24 07:30 12/11/24 08:14 12/11/24 07:30 12/11/24 08:14 12/11/24 07:30
Intake & Output
12/09/24 12/10/24 12/11/24 12/12/24
06:59 06:59 06:59 06:59
Intake Total 1140 / 1140 1350 / 1350
Output Total 275 / 275 1375 / 1375 1550 / 1550
Balance -275 / -275 -235 / -235 -200 / -200
Physical Exam
Physical Exam
GEN: AAOx3
HEENT: EOMI
LUNGS: Wearing oxygen at 3 L NC. No audible wheeze
CV: SR on tele.
ABD: ND
EXT: No edema B/L
NEURO: Gross non-focal
SKIN: No rash
[2024-12-11 11:45] LABS: Glucose - Point of Care 271 mg/dl (70-99)
[2024-12-11] MEDS: NOVOLOG FLEXPEN-LOW RESISTANCE 3 UNITS SC (12:45)
--- NOTE | 2024-12-11 15:04 | CM ---
Updated clinicals sent to [facility] and await response. Patient continues to request transfer back to SNF. CM requested PT/OT for Evaluation and treat from physician and patient will need updated auth. CM will continue to follow for discharge planning
needs.
Plan; SNF; [facility] if bed available and will need auth
--- NOTE | 2024-12-11 15:24 | W.PN.HOSP.TC ---
Today's Communication/Plan
-
dc
Assessment / Plan
Assessment / Plan
Assessment/Plan
Left-Sided Chest Pain in the setting of a sinus tachycardia
-Per cardiology, chest pain resulted from the fact that his bypass grafts are patent but he has [place] CAD that jeopardizes retrograde flow in the LAD and possibly circumflex distribution
-Bentyl has been probably exacerbating his tachycardia and it is not clear that he needs it for IBS -- cardiology stopped Bentyl and patient's symptoms improved
-Echocardiogram without cardiomyopathy-EF 50 to 55% done in the previous echo normal 2022 it was 45 to 50%. No significant valvular heart disease.
-Stopping bentyl, new medication Coreg added.
Recent presentation with multiple falls and severe weakness
Sepsis Secondary to UTI
Recent UTI
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
-Continue Cefdinir 300 mg Q12H through 12/15/23). Completed Augmentin.
-Patient is already on chronic Azithromycin outpatient
-IV fluids boluses given with improvement. White count normal, afebrile.
History of Severe COPD with acute respiratory failure
-Currently on patient's home baseline oxygen of nasal cannula 3 L
-Followed by Dr. Landeros outpatient
-Continue patient's outpatient prednisone, Azithromycin, bronchodilators and ICS
Chronic CHFmrEF
-Continue Lasix
-Daily weights
-I's and O's
Coronary Artery Disease
-s/p CABG 1998 at [facility] with GAR to LAD and free JONO Y graft from GAR to OM
-NSTEMI 12/2019 with peak trop 0.4. cath showed progression of [place] CAD however patient bypass grafts 12/2019
-Continue Aspirin 81 mg daily and Atorvastatin 80 mg daily
Orthostatic Hypotension
Paroxysmal atrial flutter s/p ablation in 2018
Paroxysmal atrial fibrillation
-Not chronically anticoagulated due to patient's choice and low burden of atrial arrhythmia
-Monitor on tele given infection and sepsis
History of NSVT
Type 2 Diabetes Mellitus
- - continue Insulin
Hypertension
Blood pressure under goal
Hyperlipidemia
-Continue home Atorvastatin
History of Smoking
Chronic right bundle-branch block
History of duodenal ulcer with microperforation in 2018
h/o daily ETOH
GERD.
Anxiety
Overweight
L1 vertebral fracture.
PVD with History of endovascular AAA repair and bilateral femoral artery endarterectomy and profundoplasty 07/2018
DVT Prophylaxis: Lovenox
Code Status: DNR/DNI
Medically stable for discharge to rehab today.
Total time of discharge 32 minutes
Anticipated Discharge: Today
Subjective/Interval History
-
Date of Service: December 11, 2024
No further chest pain.
Voicing no new complaints no specific complaints.
Denies any nausea vomiting or abdominal pain.
Denies any shortness of breath. Patient is 3 L of nasal cannula which is chronic for him.
Denies dizziness.
Objective Data
-
Labs:
Laboratory Results
12/11/24
05:43
WBC 10.2
Hgb 12.1 L
Hct 37.4 L
Plt Count 222
Sodium 135
Potassium 3.5
Chloride 98
Carbon Dioxide 29
BUN 18
Creatinine 0.7
Glucose 141 H
Calcium 9.1
Vital Signs:
Vital Signs
Temp Pulse Resp BP Pulse Ox
98.1 F 84 18 137/66 94
12/11/24 15:20 12/11/24 15:20 12/11/24 15:20 12/11/24 15:20 12/11/24 15:20
I&O
12/10/24 12/11/24 12/12/24
06:59 06:59 06:59
Intake Total 1140 / 1140 1350 / 1350
Output Total 1375 / 1375 1550 / 1550
Balance -235 / -235 -200 / -200
Physical Exam
-
General: No Apparent Distress
HEENT: Moist Mucous Membranes
Respiratory: Clear to Auscultation and Non Labored Respirations; Negative Accessory Resp Muscle Use
Cardiac: Regular Rhythm and S1/S2
Neuro: AO x 3
Psych: Calm; Negative Confused
Data Reviewed
-
Labs: Labs Reviewed by me
[2024-12-11 16:34] LABS: Glucose - Point of Care 170 mg/dl (70-99)
[2024-12-11] MEDS: ProAmatine 10 MG PO (17:38)
[2024-12-11] MEDS: LOVENOX 40 MG SC (17:49)
[2024-12-11 21:17] LABS: Glucose - Point of Care 259 mg/dl (70-99)
[2024-12-11] MEDS: LANTUS 0.03 UNITS SC (21:17)
[2024-12-11] MEDS: ATIVAN 0.5 MG PO (22:59)
[2024-12-12] VITALS (7 sets, daily range): BP systolic 134–179; BP diastolic 76–93; PULSE 101–103; O2SAT 97; BMI 27.0
[2024-12-12] MEDS: PULMICORT 0.5 MG INH (05:53)
[2024-12-12] MEDS: DUONEB 3 ML INH ×2 (05:53→16:35)
[2024-12-12 07:17] LABS: Glucose - Point of Care 157 mg/dl (70-99)
[2024-12-12 07:34] LABS: Hematocrit 36.3 % (39.0-52.0); Mean Corp Hgb Conc. 33.1 g/dL (33.0-37.0); Mean Corpuscular Volume 90.8 fL (80.0-94.0); Mean Platelet Volume 9.8 fL (7.4-10.4); Platelet Count 234 10^3/uL (130-400); Red Cell Dist. Width 12.9 % (11.5-14.5); White Blood Cell Count 9.4 10^3/uL (4.8-10.8)
[2024-12-12 07:53] LABS: Blood Urea Nitrogen 18 mg/dl (9-20); Calcium 8.9 mg/dl (8.4-10.2); Carbon Dioxide 30 mmol/L (22-30); Chloride 101 mmol/L (98-107); Estimated Creatinine Clearance 107 ml/min; Glucose 146 mg/dl (70-99); Sodium 138 mmol/L (135-145); eGFR > 60.00
[2024-12-12] MEDS: LIPITOR 80 MG PO (09:07)
[2024-12-12] MEDS: KCL 20 MEQ PO (09:08)
[2024-12-12] MEDS: TYLENOL 1000 MG PO ×2 (09:08→15:47)
[2024-12-12] MEDS: PROTONIX 40 MG PO (09:08)
[2024-12-12] MEDS: WELLBUTRIN XL (24 hour extended release) 300 MG PO (09:08)
[2024-12-12] MEDS: LOW STRENGTH ASPIRIN 81 MG PO (09:08)
[2024-12-12] MEDS: COREG 3.125 MG PO (09:09)
[2024-12-12] MEDS: OMNICEF 300 MG PO (09:09)
[2024-12-12] MEDS: ZOLOFT 50 MG PO (09:09)
[2024-12-12] MEDS: FLOMAX 0.4 MG PO (09:09)
[2024-12-12] MEDS: LASIX 20 MG PO (09:09)
[2024-12-12] MEDS: ProAmatine PO ×2 (09:10→15:44)
[2024-12-12] MEDS: VITAMIN C 500 MG PO (09:10)
[2024-12-12] MEDS: LIDOCAINE 4% PATCH 1 PATCH TOPICAL (09:10)
[2024-12-12] MEDS: NOVOLOG FLEXPEN-LOW RESISTANCE 1 UNITS SC (09:11)
--- NOTE | 2024-12-12 09:14 | CM ---
Pt cleared for discharge as of yesterday afternoon; pt would like to return to [facility]. Call placed to [facility] to request pt be seen for SNF authorization. [facility]SAF spoke with Renan, who advised he will see Justice this am to complete evaluation.
Call placed to [facility] to check on bed availability; spoke with Musa. No bed available for transfer today.
Plan: SNF authorizatoin will be needed for discharge.
[2024-12-12 12:20] LABS: Glucose - Point of Care 250 mg/dl (70-99)
--- NOTE | 2024-12-12 12:40 | CM ---
Addendum entered by Jami Biggs RN 12/12/24 15:28:
[facility] in [facility] and fax.
Ambulance at 5 pm sister and pt aware.
[facility]
report [phone]
fax [phone]
Original Note:
Spoke with Cindy at [facility] several times today.
Pt is prison at [facility] . PT indicated SNF rehab .
Spoke with An sister asked her if she wants him have rehab at [facility] . She refused PT.
IMM reviewed with sister and she agrees with discharge.
Oxygen 3 liters NC Pox 97%.
Sister requested ambulance transport.
[facility]
report [phone]
fax [phone]
PLAN To [facility] prison
[2024-12-12] MEDS: ATIVAN 0.5 MG PO (12:56)
[2024-12-12] MEDS: ProAmatine 10 MG PO (12:56)
[2024-12-12] MEDS: NOVOLOG FLEXPEN-LOW RESISTANCE 3 UNITS SC ×2 (12:59→17:06)
--- NOTE | 2024-12-12 15:08 | W.PN.HOSP.TC ---
Addendum entered and electronically signed by Sriram Morel MD 12/14/24 15:30:
Patient with COPD and chronic respiratory insufficiency and uses 3 L of oxygen at home
Original Note:
Today's Communication/Plan
-
dc
Assessment / Plan
Assessment / Plan
Assessment/Plan
Left-Sided Chest Pain in the setting of a sinus tachycardia
-Per cardiology, chest pain resulted from the fact that his bypass grafts are patent but he has [place] CAD that jeopardizes retrograde flow in the LAD and possibly circumflex distribution
-Bentyl has been probably exacerbating his tachycardia and it is not clear that he needs it for IBS -- cardiology stopped Bentyl and patient's symptoms improved
-Echocardiogram without cardiomyopathy-EF 50 to 55% done in the previous echo normal 2022 it was 45 to 50%. No significant valvular heart disease.
-Stopping bentyl, new medication Coreg added.
Recent presentation with multiple falls and severe weakness
Sepsis Secondary to UTI
Recent UTI
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
-Continue Cefdinir 300 mg Q12H through 12/15/23). Completed Augmentin.
-Patient is already on chronic Azithromycin outpatient
-IV fluids boluses given with improvement. White count normal, afebrile.
History of Severe COPD with acute respiratory failure
-Currently on patient's home baseline oxygen of nasal cannula 3 L
-Followed by Dr. Landeros outpatient
-Continue patient's outpatient prednisone, Azithromycin, bronchodilators and ICS
Chronic CHFmrEF
-Continue Lasix
-Daily weights
-I's and O's
Coronary Artery Disease
-s/p CABG 1998 at [facility] with GAR to LAD and free JONO Y graft from GAR to OM
-NSTEMI 12/2019 with peak trop 0.4. cath showed progression of [place] CAD however patient bypass grafts 12/2019
-Continue Aspirin 81 mg daily and Atorvastatin 80 mg daily
Orthostatic Hypotension
Paroxysmal atrial flutter s/p ablation in 2018
Paroxysmal atrial fibrillation
-Not chronically anticoagulated due to patient's choice and low burden of atrial arrhythmia
-Monitor on tele given infection and sepsis
History of NSVT
Type 2 Diabetes Mellitus
- - continue Insulin
Hypertension
Blood pressure under goal
Hyperlipidemia
-Continue home Atorvastatin
History of Smoking
Chronic right bundle-branch block
History of duodenal ulcer with microperforation in 2018
h/o daily ETOH
GERD.
Anxiety
Overweight
L1 vertebral fracture.
PVD with History of endovascular AAA repair and bilateral femoral artery endarterectomy and profundoplasty 07/2018
DVT Prophylaxis: Lovenox
Code Status: DNR/DNI
Medically stable for discharge to rehab today.
Total time of discharge 32 minutes
Anticipated Discharge: Today
Subjective/Interval History
-
Date of Service: December 12, 2024
No overnight events. Remains asymptomatic without chest pain. Await rehab placement.
Objective Data
-
Labs:
Laboratory Results
12/12/24
06:42
WBC 9.4
Hgb 12.0 L
Hct 36.3 L
Plt Count 234
Sodium 138
Potassium 4.0
Chloride 101
Carbon Dioxide 30
BUN 18
Creatinine 0.6 L
Glucose 146 H
Calcium 8.9
Vital Signs:
Vital Signs
Temp Pulse Resp BP Pulse Ox
98.6 F 99 20 134/93 97
12/12/24 11:27 12/12/24 12:56 12/12/24 11:27 12/12/24 12:56 12/12/24 11:27
I&O
12/11/24 12/12/24 12/13/24
06:59 06:59 06:59
Intake Total 1350 / 1350 1140 / 1140 240 / 240
Output Total 1550 / 1550 2225 / 2225 200 / 200
Balance -200 / -200 -1085 / -1085 40 / 40
Review of Systems
-
Respiratory: Denies Trouble Breathing
Abdomen/GI: Denies Abdominal Pain, Nausea or Vomiting
Neuro: Denies Dizzy
Physical Exam
-
General: Comfortable
Respiratory: Clear to Auscultation and Non Labored Respirations; Negative Accessory Resp Muscle Use
Cardiac: Regular Rhythm and S1/S2
GI: Soft
Neuro: AO x 3
[2024-12-12] MEDS: APRESOLINE 10 MG IV (15:48)
--- NOTE | 2024-12-12 15:57 | PN.CDI ---
CDI
- -
CDI:
Physician Documentation Request
Admit Date: 12/08/24 20:09
Dear Doctor Adriel,
Clinical Indicators:
Patient admitted with chest pain.
/ PN, 'History of Severe COPD with acute respiratory failure -Currently on patient's home baseline oxygen of nasal cannula 3 L'
02 requirements: 3 -4 L NC
Please clarify which of the following accurately represents the patient's respiratory status:
Chronic hypoxic respiratory failure
Acute on chronic hypoxic respiratory failure
Other
Additional information for Respiratory Failure:
Recognized criteria for Respiratory Failure (Source: [facility] Hospitalist Aug 2013)
ABGs: (1 or more) Symptoms Please indicate type if known
1. p)2 <60 or RA SPO2 <91% on RA 1. Tachypnea, SOB, dyspnea Hypoxic
2. pCO2 50 and pH <7.35 2. Use of accessory muscles Hypercapnic
3. pO2 decrease of pCO2 increase by 3. Pallor or cyanosis Hypoxic and Hypercapnic
10 mmHg from baseline if known 4. Anxiety or restlessness Unable to determine
5. Unable to speak in full sentences
Supplemental O2 of > 40% (5LPM) Intubation is not required
Use of terms such as suspected, likely, concern for, or probable (associated with a specific diagnosis that is being evaluated, monitored, or treated as if it exists) are acceptable and can be coded in the inpatient setting, when documented at the
time of discharge.
Thank you,
Mildred Drake RN BSN
CDI Specialist
available via tiger text
Please use your independent medical judgment in providing your response.
[2024-12-12 16:30] LABS: Glucose - Point of Care 293 mg/dl (70-99)
--- NOTE | 2024-12-12 17:02 | W.DCSUMMARY ---
Discharge Summary
Discharge Data
Date of Admission: 12/08/24
Date of Discharge: 12/12/24
-
Pending Results: No
Hospital Course
Primary diagnosis:
Atypical chest pain suspected possibly realted to tachycardia
Secondary diagnosis:
Recent urinary tract infection
Severe chronic obstructive pulmonary disease on home O2
Chronic heart failure with midrange EF
Coronary artery disease
Paroxysmal atrial fibrillation
Type 2 diabetes mellitus
Hypertension
Hospital course:
Patient presents with chest pain which sounded atypical. No evidence of acute coronary syndrome. His troponins were indeterminate with 0.03 as a peak. Was seen by cardiology. He was recently started on Bentyl and trazodone. His Coreg was
decreased due to concern of orthostasis. He was noted to be tachycardic. He has got a history of coronary artery disease -
s/p CABG 1998 at [facility] with GAR to LAD and free JONO Y graft from GAR to OM
NSTEMI with peak trop 0.4. cath showed progression of samish CAD however patient bypass grafts 12/2019
Given his coronary anatomy he tolerates tachycardia poorly so Coreg was added back in fentanyl trazodone was discontinued and there was improved heart rate. His orthostasis also was well-controlled. There was no evidence of heart failure. No
additional recommendations were added by cardiology at this time.
He was discharged back to rehab once he was stable from cardiology standpoint.
Consultants on board:
Cardiology Tab Woods
Discharge Plan
-
Patient Disposition: Skilled Nursing/SNF
Discharge Diagnosis/Procedures: Atypical chest pain suspected secondary to Bentyl/tachycardia
Diet: Low Cholesterol and Diabetic, Carb Controlled
Activity: As tolerated
Driving Restrictions: As prior to admission
Bathing Restrictions: None
Other Services: PT and OT
Referrals:
Renan Pedroza DO [Family Provider] - None
Prescriptions:
New
carvedilol 3.125 mg Tablet
3.125 mg PO BID Qty: 1 0RF
Continued
ipratropium-albuterol 0.5 mg-3 mg(2.5 mg base)/3 mL Solution For Nebulization
3 ml INHALATION R QIDPRN PRN (Reason: SOB)
albuterol sulfate 90 mcg/actuation Hfa Aerosol Inhaler
2 puff INHALATION R Q6HPRN PRN (Reason: SOB)
tamsulosin 0.4 mg Capsule
0.4 mg PO DAILY
atorvastatin 80 MG tablet
80 mg PO DAILY
pantoprazole 40 MG tablet,delayed release (DR/EC)
40 mg PO DAILY
budesonide 0.5 mg/2 mL Suspension For Nebulization
0.5 mg inhalation R BID Qty: 60 0RF
aspirin [Children's Aspirin] 81 mg Tablet,Chewable
81 mg PO DAILY Qty: 1 0RF
prednisone 10 MG tablet
10 mg PO DAILY Qty: 0 0RF
Rx Instructions:
once done with steroid taper
azithromycin 250 MG tablet
250 mg PO DAILY Qty: 0 0RF
Rx Instructions:
once done with augmentin
potassium chloride 20 mEq tablet,ER particles/crystals
20 meq PO DAILY
ascorbic acid (vitamin C) [Vitamin C] 500 mg tablet
500 mg PO DAILY
nitroglycerin [Nitrostat] 0.4 mg Tablet, Sublingual
0.4 mg SUBLINGUAL [id number] PRN (Reason: chest pain)
sertraline 50 mg tablet
50 mg PO DAILY
bupropion HCl 300 mg tablet extended release 24 hr
300 mg PO DAILY
cefdinir 300 mg capsule
300 mg PO Q12H 8 Days Qty: 16 0RF
Patient Comments:
12/08/24: to take from 12/06/24-12/14/24
midodrine 10 mg tablet
10 mg PO TID Qty: 0 0RF
Rx Instructions:
Hold for SBP>116 mmHg; * Avoid dosing after evening meal or within 4 hours of bedtime *
acetaminophen 325 mg Tablet
650 mg PO Q4HPRN PRN (Reason: mild pain/fever)
magnesium hydroxide [Milk of Magnesia] 400 mg/5 mL Suspension
30 ml PO HSPRN PRN (Reason: constipation)
bisacodyl 10 mg Suppository
10 mg PA DAILYPRN PRN (Reason: 3 days no bm, mom ineffective)
insulin glargine [Lantus U-100 Insulin] 100 unit/mL solution
3 unit SC HS
lorazepam 0.5 mg tablet
0.5 mg PO BIDPRN PRN (Reason: sleep/anxiety)
Changed
furosemide 40 mg Tablet
20 mg PO DAILY Qty: 1 0RF
Rx Instructions:
Dose decreased on this admission
Discontinued
dicyclomine 10 mg Capsule
10 mg PO QID
trazodone 50 mg tablet
50 mg PO HSPRN PRN (Reason: sleep)
amoxicillin 875 mg tablet
875 mg PO Q12H 5 Days Qty: 10 0RF
Patient Comments:
12/08/24: to take for 5 days starting 12/06/24
Discharge Orders:
Discharge Patient (As Directed); Ordered 12/11/24
Ordered By: Sriram Morel
Discharge Date and Time
Print Language: SLOVENIAN
== END 2024-12-12 17:37 | DRG 309 ==
LOC: 4 EAST ACU 20:09
PROVIDERS: Emergency Medicine; Hospitalist; Nurse Practitioner Family; Registered Nurse; ADMITTING PHYSICIAN Internal Medicine; ATTENDING PHYSICIAN Internal Medicine; EMERGENCY PHYSICIAN Emergency Medicine; FAMILY PHYSICIAN Student in an Organized Health Care Education/Training Program; OTHER PHYSICIAN Internal Medicine Cardiovascular Disease
DX: R00.0 Tachycardia, unspecified (principal); D84.821 Immunodeficiency due to drugs; I50.22 Chronic systolic (congestive) heart failure; T44.3X5A Adverse effect of other parasympatholytics [anticholinergics and antimuscarinics] and spasmolytics, initial encounter; I25.10 Atherosclerotic heart disease of native coronary artery without angina pectoris; K58.9 Irritable bowel syndrome, unspecified; J44.9 Chronic obstructive pulmonary disease, unspecified; Z99.81 Dependence on supplemental oxygen; I11.0 Hypertensive heart disease with heart failure; I48.0 Paroxysmal atrial fibrillation; E11.51 Type 2 diabetes mellitus with diabetic peripheral angiopathy without gangrene; Z95.1 Presence of aortocoronary bypass graft; K21.9 Gastro-esophageal reflux disease without esophagitis; E78.00 Pure hypercholesterolemia, unspecified; Z82.49 Family history of ischemic heart disease and other diseases of the circulatory system; Z80.1 Family history of malignant neoplasm of trachea, bronchus and lung; Z88.8 Allergy status to other drugs, medicaments and biological substances; Z79.82 Long term (current) use of aspirin; Z79.4 Long term (current) use of insulin; F41.9 Anxiety disorder, unspecified; I45.10 Unspecified right bundle-branch block; I16.0 Hypertensive urgency; F32.A Depression, unspecified; I49.3 Ventricular premature depolarization; Z11.52 Encounter for screening for COVID-19; I95.1 Orthostatic hypotension; Z79.899 Other long term (current) drug therapy; F17.210 Nicotine dependence, cigarettes, uncomplicated; Z87.11 Personal history of peptic ulcer disease; Z66 Do not resuscitate; Z86.79 Personal history of other diseases of the circulatory system; N40.0 Benign prostatic hyperplasia without lower urinary tract symptoms; Z79.51 Long term (current) use of inhaled steroids; Z79.52 Long term (current) use of systemic steroids; T38.0X5A Adverse effect of glucocorticoids and synthetic analogues, initial encounter; E66.9 Obesity, unspecified; Z68.27 Body mass index [BMI] 27.0-27.9, adult; D64.9 Anemia, unspecified; G47.30 Sleep apnea, unspecified; Z91.81 History of falling; Z95.5 Presence of coronary angioplasty implant and graft; I25.2 Old myocardial infarction; R06.89 Other abnormalities of breathing
CPT/HCPCS: 71275; 80048; 80053; 80061; 82962; 83735; 84484; 85025; 85027; 87070; 87502; 87811; 93005; 93306; 94640; 96361; 96374; 97162; 97166; 99285; Q9967

== ENCOUNTER 2024-12-20 11:07 | Emergency (ER) | payer OTHER, SELFPAY ==
[2024-12-20 11:11] VITALS: BP 108/69; BMI 28.9
[2024-12-20 11:30] LABS: % Basophils 0.2 % (0-2); % Eosinophils 0.8 % (0-6); % Immature Granulocytes 0.7 % (0-0.5); % Lymphocytes 5.5 % (20.5-51.1); % Monocytes 5.4 % (1.7-9.3); % Neutrophils 87.4 % (42.2-75.2); Absolute Eosinophils 0.1 10^3/uL (0-0.7); Absolute Immature Granulocytes 0.1 10^3/uL (0-0.05); Absolute Lymphocytes 0.7 10^3/uL (1.2-3.4); Absolute Monocytes 0.7 10^3/uL (0.1-0.6); Absolute Neutrophils 10.6 10^3/uL (1.4-6.5); Hematocrit 36.8 % (39.0-52.0); Hemoglobin 11.3 g/dL (13.0-18.0); Mean Corp Hgb Conc. 30.7 g/dL (33.0-37.0); Mean Corpuscular Hgb 29.4 pg (27.0-31.0); Mean Corpuscular Volume 95.8 fL (80.0-94.0); Mean Platelet Volume 9.3 fL (7.4-10.4); Nucleated Red Blood Cells % 0 % (-); Platelet Count 265 10^3/uL (130-400); Red Blood Cell Count 3.84 10^6/uL (4.70-6.10); White Blood Cell Count 12.1 10^3/uL (4.8-10.8)
[2024-12-20 11:44] LABS: ALT (SGPT) 30 U/L (0-50); AST (SGOT) 22 U/L (17-59); Albumin 3.6 g/dl (3.5-5.0); Alkaline Phosphatase 96 U/L (38-126); Blood Urea Nitrogen 14 mg/dl (9-20); Calcium 9.1 mg/dl (8.4-10.2); Carbon Dioxide 31 mmol/L (22-30); Chloride 99 mmol/L (98-107); Estimated Creatinine Clearance 89 ml/min; Glucose 303 mg/dl (70-99); Potassium 4.7 mmol/L (3.5-5.1); Sodium 135 mmol/L (135-145); Total Bilirubin 0.4 mg/dl (0.2-1.3); Total Protein 5.8 g/dl (6.3-8.2); eGFR > 60.00
[2024-12-20 11:59] LABS: Troponin I 0.036 ng/ml
[2024-12-20 12:00] VITALS: BP 124/94
--- NOTE | 2024-12-20 12:30 | ED.GENMED ---
History of Present Illness
General
Chief Complaint: Chest Pain
Source: patient and ambulance crew
Time Seen by Provider: 12/20/24 11:58
History of Present Illness
History of Present Illness:
69-year-old male with extensive cardiopulmonary past medical history including previous AAA status postrepair, CABG, CHF, atrial fibrillation, COPD (on chronic 3 L via nasal cannula), insulin-dependent diabetes presenting to the emergency department
via EMS from [facility] for evaluation after he developed chest while eating breakfast about an hour and a half prior to arrival. EMS states that they did provide patient with 1 sublingual nitroglycerin and 324 mg of aspirin which patient
states at the time did not help with the pain but is currently denying any pain. Patient states at the time of symptoms starting he was eating breakfast of pancakes. He denies any fevers or recent illnesses, shortness of breath, lower extremity
edema, cough, pleurisy. Patient was recently admitted at this facility for the exact same symptoms a little over 1 week ago and reports that today's symptoms were not any different than the presenting symptoms at that time.
Past History
Past History
ED Past Medical History: Arrthythmia (Atrial fib), CAD, CHF, COPD, GERD, HTN, Hypercholesterolemia, IDDM, PA (Non-STEMI December 2019), Valvular disease and Other (Back pain, Headaches, Sleep apnea, IBS, Pancreatitis, Ulcers, Gastritis, Anemia, )
ED Past Surgical History: Cardiac (CABG, PTCA with stent), Cholecystectomy (January 2016), Orthopedic (Right wrist surgery), Tonsilectomy and Other (hernia repair, endovascular AAA with bilateral femoral endarterectomy and profundoplasty 07/2018)
Social History
Tobacco: Former smoker
Alcohol: None
Drug: None
Personal: Single
Living: alone
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
Family History
Family History: Hypertension
Review of Systems
Review of Systems
All Other Systems: ROS reviewed and negative except as documented in HPI and ROS
Phy Exam
Physical Exam
Physical Exam:
GENERAL: Alert , in no apparent distress, [address] nasal cannula in place
HEAD: NCAT
EYE: Clear conjunctiva
NECK: Supple
ENT: o/p clr, mmm.
CARDIAC: Regular rate and rhythm, systolic murmur
LUNGS: Clear breath sounds bilaterally, no acute respiratory distress, no wheezes/rales/rhonchi
ABDOMEN: Soft, without focal tenderness, no r/g, no cvat
NEUROLOGICAL: Alert and oriented
SKIN: Warm and dry, skin intact.
MUSCULOSKELETAL: No edema, well perfused.
PSYCH: Normal and appropriate interaction.
Scores
Heart Failure Risk
Heart Failure Risk Score: Not Applicable
Heart Score for Chest Pain Patients
STEMI patient?: No
History: Moderately Suspicious
ECG: Nonspecific Repolarization
Age: >/= 65 years
Risk Factors: >/= 3 Risk Factors or History of CAD
Troponin: </= Normal Limit
Heart Score for Chest Pain Patients: 6
Heart Score Risk: 20.3% MACE over next 6 weeks
Withdrawal Assessment of Alcohol
Withdrawal Assessment Completed?: Not applicable
Course
Orders/Labs/Results
Orders:
Orders
12/20/24
Electrocardiogram (*1) Stat
Comment: ALREADY DONE
12/20/24 11:12
Electrocardiogram (*1) Urgent
Reason for Study: Chest Pain
12/20/24 11:13
EKG- Treatment ONCE
12/20/24 11:19
Crisis Consult Urgent
Reason for Consult: SI
12/20/24 11:20
Complete Blood Count/With Diff Urgent
Comprehensive Metabolic Panel Urgent
Troponin I Urgent
12/20/24 14:00
Troponin I Urgent
Abnormal Lab Results
12/20/24
11:20
WBC 12.1 H 10^3/uL
(4.8-10.8)
RBC 3.84 L 10^6/uL
(4.70-6.10)
Hgb 11.3 L g/dL
(13.0-18.0)
Hct 36.8 L %
(39.0-52.0)
MCV 95.8 H fL
(80.0-94.0)
MCHC 30.7 L g/dL
(33.0-37.0)
Abs Immat Gran (auto) 0.1 H 10^3/uL
(0-0.05)
Absolute Neuts (auto) 10.6 H 10^3/uL
(1.4-6.5)
Absolute Lymphs (auto) 0.7 L 10^3/uL
(1.2-3.4)
Absolute Monos (auto) 0.7 H 10^3/uL
(0.1-0.6)
Immature Gran % 0.7 H %
(0-0.5)
Neutrophils % 87.4 H %
(42.2-75.2)
Lymphocytes % 5.5 L %
(20.5-51.1)
Carbon Dioxide 31 H mmol/L
(22-30)
Glucose 303 H mg/dl
(70-99)
Troponin I 0.036 H* ng/ml
Total Protein 5.8 L g/dl
(6.3-8.2)
12/20/24 11:20
12/20/24 11:20
Vital Signs
Initial and Last Documented VS:
Initial Vital Signs
Temp Pulse Resp BP Pulse Ox
98.2 F 90 20 108/69 94
12/20/24 11:11 12/20/24 11:11 12/20/24 11:11 12/20/24 11:11 12/20/24 11:11
Last Documented Vital Signs
Temp Pulse Resp BP Pulse Ox
98.2 F 74 18 139/81 97
12/20/24 11:11 12/20/24 14:15 12/20/24 14:15 12/20/24 14:00 12/20/24 14:15
Manual Machinist consulted with Physician
Manual Machinist consulted with physician?: Yes
Name of Physician Consulted: Jaime
MDM/Problems Addressed
Differential Diagnosis Includes:
unstable angina, atypical ACS, GERD/gastritis, COPD exacerbation, PE, CHF
MDM/Problems Addressed:
69-year-old male presenting to the ER for evaluation of of chest pain that started while he had pancakes for breakfast this morning, chest pain free upon arrival. Patient did receive 324 mg of aspirin and 1 sublingual nitroglycerin prior to arrival
to the ER. Recent admission here for the same chest pain and was ultimately cleared by cardiology and discharged home. Labs ordered upon arrival. EKG shows a sinus rhythm at 92 bpm with a right bundle branch block and T wave inversions in the
inferolateral leads but overall unchanged from previous EKG. Plan to trend troponin. Disposition pending.
Chronic conditions affecting care: CAD and COPD
Acute Exacerbation and/or Progression of Chronic Illness: CAD
*Pulse Oximetry
Patient hypoxic: no
*EKG
Heart Rate: 92
Rate: normal
Rhythm: sinus
QRS Pattern: right bundle branch block
Ischemia: T-wave inversion (Inferolateral lead)
*Director Of Recruitment And Admissions Interpretation
Rate: normal
Rhythm: sinus
*Critical Care Note
Total Time (30-74mins, 75-104mins- exclusive of procedures): Not Applicable
Data Reviewed
Review of Other/Old Records Reveals: Labs, Records and Discharge Summary
Patient Management
Escalation/DeEscalation of care consider admission/obs:
Patient's repeat troponin downtrending. Given his recent admission and cardiology consultation I do not have suspicion for cardiac cause of his chest discomfort. At this time I do think it is reasonable for patient to be discharged back to his
nursing facility and can follow-up with cardiology as an outpatient.
ED Attending Note
-
Portions of this chart may have been created with voice recognition software.� Occasional wrong word or��sound alike� substitutions may have occurred due to the inherent limitations of voice recognition software.
Discharge Plan
Departure
Patient Disposition: Prison/SNF
Date of Disposition: 12/20/24
Time of Disposition: 14:52
Patient with high blood pressure during this ER visit?: Yes
Discharge Problem:
Chest pain
Instructions: Chest Pain DCA Follow Up
Prescriptions:
No Action
ipratropium-albuterol 0.5 mg-3 mg(2.5 mg base)/3 mL Solution For Nebulization
3 ml INHALATION R QIDPRN PRN (Reason: SOB)
albuterol sulfate 90 mcg/actuation Hfa Aerosol Inhaler
2 puff INHALATION R Q6HPRN PRN (Reason: SOB)
tamsulosin 0.4 mg Capsule
0.4 mg PO DAILY
atorvastatin 80 MG tablet
80 mg PO DAILY
pantoprazole 40 MG tablet,delayed release (DR/EC)
40 mg PO DAILY
budesonide 0.5 mg/2 mL Suspension For Nebulization
0.5 mg inhalation R BID Qty: 60 0RF
aspirin [Children's Aspirin] 81 mg Tablet,Chewable
81 mg PO DAILY Qty: 1 0RF
prednisone 10 MG tablet
10 mg PO DAILY Qty: 0 0RF
Rx Instructions:
once done with steroid taper
azithromycin 250 MG tablet
250 mg PO DAILY Qty: 0 0RF
Rx Instructions:
once done with augmentin
potassium chloride 20 mEq tablet,ER particles/crystals
20 meq PO DAILY
ascorbic acid (vitamin C) [Vitamin C] 500 mg tablet
500 mg PO DAILY
nitroglycerin [Nitrostat] 0.4 mg Tablet, Sublingual
0.4 mg SUBLINGUAL [id number] PRN (Reason: chest pain)
sertraline 50 mg tablet
50 mg PO DAILY
bupropion HCl 300 mg tablet extended release 24 hr
300 mg PO DAILY
midodrine 10 mg tablet
10 mg PO TID Qty: 0 0RF
Rx Instructions:
Hold for SBP>116 mmHg; * Avoid dosing after evening meal or within 4 hours of bedtime *
acetaminophen 325 mg Tablet
650 mg PO Q4HPRN PRN (Reason: mild pain/fever)
magnesium hydroxide [Milk of Magnesia] 400 mg/5 mL Suspension
30 ml PO HSPRN PRN (Reason: constipation)
bisacodyl 10 mg Suppository
10 mg SC [id number] PRN (Reason: if mom ineffective)
insulin glargine [Lantus U-100 Insulin] 100 unit/mL solution
3 unit SC HS
lorazepam 0.5 mg tablet
0.5 mg PO BIDPRN PRN (Reason: sleep/anxiety)
carvedilol 3.125 mg Tablet
3.125 mg PO BID Qty: 1 0RF
furosemide 40 mg Tablet
20 mg PO DAILY Qty: 1 0RF
Rx Instructions:
Dose decreased on this admission
Referrals:
UNKNOWN - PT NOT,INTERVIEWE [Family Provider] -
Interventions
Interventions:
*Risk Screen - Suicide Last Done: 12/20/24 11:11
*General Assessment Last Done: 12/20/24 11:11
*Neglect/Abuse Screening Last Done: 12/20/24 11:11
ED- Fall Risk Assessment Last Done: 12/20/24 11:11
*ED COVID-19 Vaccine History Last Done: 12/20/24 11:11
ED- Cardiac Assessment Last Done: 12/20/24 11:11
Discharge Date and Time
Print Language: GABONESE
--- NOTE | 2024-12-20 12:50 | PHANOTE ---
med rec note- called [facility] for missing paperwork to be fax over
[2024-12-20 13:00] VITALS: BP 150/79
[2024-12-20 14:00] VITALS: BP 139/81
[2024-12-20 14:46] LABS: Troponin I 0.025 ng/ml
[2024-12-20 15:00] VITALS: BP 150/84
== END 2024-12-20 16:18 ==
LOC: EMR 11:07
PROVIDERS: Physician Assistant Medical; EMERGENCY PHYSICIAN Emergency Medicine
DX: R07.89 Other chest pain (principal); I45.10 Unspecified right bundle-branch block; I11.0 Hypertensive heart disease with heart failure; I50.9 Heart failure, unspecified; I48.91 Unspecified atrial fibrillation; J44.9 Chronic obstructive pulmonary disease, unspecified; E11.9 Type 2 diabetes mellitus without complications; E78.00 Pure hypercholesterolemia, unspecified; G47.30 Sleep apnea, unspecified; I25.10 Atherosclerotic heart disease of native coronary artery without angina pectoris; I25.2 Old myocardial infarction; K21.9 Gastro-esophageal reflux disease without esophagitis; Z79.4 Long term (current) use of insulin; Z87.891 Personal history of nicotine dependence; Z95.1 Presence of aortocoronary bypass graft; Z90.49 Acquired absence of other specified parts of digestive tract; Z86.79 Personal history of other diseases of the circulatory system; Z95.5 Presence of coronary angioplasty implant and graft; Z99.81 Dependence on supplemental oxygen
CPT/HCPCS: 99284; 80053; 84484; 85025; 93005

== ENCOUNTER → 2025-01-11 10:16 | Outpatient (REF) | payer OTHER, SELFPAY ==
[2025-01-11 11:28] LABS: Urine Albumin Negative (Neg - Trace); Urine Bilirubin Negative (Negative); Urine Character Clear (Clear); Urine Glucose 2+ (Negative); Urine Ketone Negative (Negative); Urine Leukocyte 3+ (Negative); Urine Nitrite Negative (Negative); Urine Occult Blood 2+ (Negative); Urine Urobilinogen Negative (Neg - 1+)
[2025-01-11 11:33] LABS: Urine Color Straw
[2025-01-11 11:41] LABS: Urine Bacteria Few (Negative); Urine Red Blood Cell 0-2 /HPF (0-2); Urine White Cell 26-30 /HPF (0-5)
== END ==
LOC: OLABN 10:16
PROVIDERS: ATTENDING PHYSICIAN Student in an Organized Health Care Education/Training Program
DX: R35.0 Frequency of micturition (principal)
CPT/HCPCS: 81003; 81015; 87086

== ENCOUNTER → 2025-01-12 14:30 | Outpatient (REF) | payer OTHER, MEDICARE, SELFPAY ==
[2025-01-13 10:05] LABS: Urine Albumin Negative (Neg - Trace); Urine Bilirubin Negative (Negative); Urine Character Clear (Clear); Urine Color Yellow; Urine Glucose Negative (Negative); Urine Ketone Negative (Negative); Urine Leukocyte 3+ (Negative); Urine Nitrite Negative (Negative); Urine Occult Blood 1+ (Negative); Urine Urobilinogen Negative (Neg - 1+)
[2025-01-13 10:22] LABS: Urine Bacteria Few (Negative); Urine Squamous Cell 0-2 /LPF (Few)
== END ==
LOC: OLABN 14:30
PROVIDERS: ATTENDING PHYSICIAN Student in an Organized Health Care Education/Training Program
DX: R35.0 Frequency of micturition (principal)
CPT/HCPCS: 81003; 81015; 87086

== ENCOUNTER 2025-02-23 14:12 | Inpatient (IN) | payer MEDICARE, SELFPAY ==
[2025-02-23] VITALS (73 sets, daily range): BP systolic 99–189; BP diastolic 68–130; BMI 29.1; BMI 27.9
[2025-02-23 05:38] LABS: % Basophils 0.4 % (0-2); % Eosinophils 7.6 % (0-6); % Immature Granulocytes 1.1 % (0-0.5); % Lymphocytes 9.2 % (20.5-51.1); % Monocytes 12.4 % (1.7-9.3); % Neutrophils 69.3 % (42.2-75.2); Absolute Eosinophils 0.6 10^3/uL (0-0.7); Absolute Immature Granulocytes 0.1 10^3/uL (0-0.05); Absolute Lymphocytes 0.8 10^3/uL (1.2-3.4); Absolute Neutrophils 5.6 10^3/uL (1.4-6.5); Hematocrit 35.8 % (39.0-52.0); Hemoglobin 11.4 g/dL (13.0-18.0); Mean Corp Hgb Conc. 31.8 g/dL (33.0-37.0); Mean Corpuscular Volume 91.1 fL (80.0-94.0); Mean Platelet Volume 9.1 fL (7.4-10.4); Nucleated Red Blood Cells % 0 % (-); Platelet Count 222 10^3/uL (130-400); Red Blood Cell Count 3.93 10^6/uL (4.70-6.10); Red Cell Dist. Width 12.4 % (11.5-14.5); White Blood Cell Count 8.1 10^3/uL (4.8-10.8)
[2025-02-23 05:50] LABS: ALT (SGPT) 30 U/L (0-50); AST (SGOT) 20 U/L (17-59); Albumin 3.6 g/dl (3.5-5.0); Alkaline Phosphatase 109 U/L (38-126); Blood Urea Nitrogen 14 mg/dl (9-20); Calcium 9.2 mg/dl (8.4-10.2); Carbon Dioxide 34 mmol/L (22-30); Chloride 95 mmol/L (98-107); Estimated Creatinine Clearance 106 ml/min; Glucose 221 mg/dl (70-99); Potassium 4.6 mmol/L (3.5-5.1); Sodium 135 mmol/L (135-145); Total Bilirubin 0.3 mg/dl (0.2-1.3); Total Protein 6.1 g/dl (6.3-8.2); eGFR > 60.00
[2025-02-23 06:10] LABS: Troponin I 0.141 ng/ml
--- NOTE | 2025-02-23 06:48 | ED.GENMED ---
History of Present Illness
General
Chief Complaint: Chest Pain
Time Seen by Provider: 02/23/25 06:05
History of Present Illness
History of Present Illness:
70-year-old male with history of coronary artery disease status post CABG, aortic aneurysm status post endovascular repair, atrial fibrillation, chronic HFpEF, and COPD presents to the emergency department for evaluation of chest pain that awoke him
from sleep at approximately 1 AM today. He was given nitroglycerin with resolution of pain however it returned at 4 AM, since that time has been given 3 further nitroglycerin with improvement in pain from 9 out of 10 to 3 out of 10 at present. He
reports shortness of breath at onset of symptoms however this is since resolved. Does report recent dry coughing, denies fevers or chills. No leg swelling or weight gain, endorses that he is weighed daily Nelsy Reyes.
Past History
Past History
ED Past Medical History: Arrthythmia (Atrial fib), CAD, CHF, COPD, GERD, HTN, Hypercholesterolemia, IDDM, [place] (Non-STEMI December 2019), Valvular disease and Other (Back pain, Headaches, Sleep apnea, IBS, Pancreatitis, Ulcers, Gastritis, Anemia, )
ED Past Surgical History: Cardiac (CABG, PTCA with stent), Cholecystectomy (January 2016), Orthopedic (Right wrist surgery), Tonsilectomy and Other (hernia repair, endovascular AAA with bilateral femoral endarterectomy and profundoplasty 07/2018)
Social History
Tobacco: Former smoker
Alcohol: None
Drug: None
Personal: Single
Living: alone
Employment: Employed ([employer])
Family History
Family History: Hypertension
Review of Systems
Review of Systems
Allergies reviewed?: Yes
All Other Systems: ROS reviewed and negative except as documented in HPI and ROS
Phy Exam
Physical Exam
Physical Exam:
GEN: Well appearing, NAD, WDWN
HEENT: Oral mucosa moist, no scleral icterus
Cardiac: Regular rate and rhythm, no murmurs
Lung: No respiratory distress, no tachypnea, expiratory wheezes heard throughout all lung weiss
MSK: No gross deformity or injuries, trace pretibial edema bilaterally
Skin: Good color, no pallor or jaundice, no rashes
Neuro: AO x3, moves all extremities freely
Psych: Calm, cooperative
Scores
Heart Score for Chest Pain Patients
STEMI patient?: No
History: Moderately Suspicious
ECG: Nonspecific Repolarization
Age: >/= 65 years
Risk Factors: >/= 3 Risk Factors or History of CAD
Troponin: >/= 3 x Normal Limit
Heart Score for Chest Pain Patients: 8
Heart Score Risk: 72.7 % MACE over next 6 weeks
Course
Orders/Labs/Results
Orders:
Orders
02/23/25 05:25
Electrocardiogram (*1) Urgent
Reason for Study: Chest Pain
Cardiac Monitoring- Treatment ONCE
EKG- Treatment ONCE
IV Insert/Care/Rem.- Treatment PRN
O2 Therapy [RESP] Urgent
Titrate/Wean O2 to maintain O2 sat greater than (%): 90
Special Instructions: Maintain sats >/=90%
Pulse Ox/spot Check [RESP] Urgent
Quantity: 1
Special Instructions: ON ROOM AIR
02/23/25 05:31
Complete Blood Count/With Diff Urgent
Comprehensive Metabolic Panel Urgent
NT-proBNP Urgent
Comment: ADD ON
Troponin I Urgent
02/23/25 06:19
Add On- LAB Urgent
Tests Added?: BNP
CR Chest Portable - 1 View Urgent
Comment:
Reason For Exam: chest pain/SOB
Reason Study Needs to be Portable: Other
02/23/25 06:25
COVID-19 Antigen Urgent
Source: Nasal Swab
Influenza A+B Rapid Molecular Urgent
FLYNN Source: Nasal Swab
Specimen Description:
02/23/25 06:45
Nitroglycerin 100 mg/250 ml [Nitroglycerin Premix] 100 mg in 250 ml IV PER PROTOCOL
Initial dose in mcg/min, then titrate:: 20
Titrate to keep:: Chest Pain Free
Titrate by mcg/min:: 5 mcg/min, may increase by 10 mcg/min if dose > 20 mcg/min
Frequency of titrations (minutes):: every 3-5 minutes
Maximum dose in mcg/min:: 200
Begin to taper infusion when:: Remained at goal for 2hrs
Taper by mcg/min:: 5 mcg/min
Frequency of taper (minutes) if patient maintains goal:: 30
Taper to off?: Yes
If infusion off & no longer maintaining goal:: Contact Provider
02/23/25 07:28
Electrocardiogram (*1) Urgent
Reason for Study: Chest Pain
EKG- Treatment ONCE
02/23/25 07:42
Troponin I Urgent
02/23/25 08:49
CARDIOLOGY CONSULT Urgent
Consulting Provider: Evin Pulido
Was physician already notified: Yes
02/23/25 13:00
Nitroglycerin [Nitro-Dur] 0.1 mg TRANSDERM DAILY
Abnormal Lab Results
02/23/25 02/23/25
05:31 07:42
RBC 3.93 L 10^6/uL
(4.70-6.10)
Hgb 11.4 L g/dL
(13.0-18.0)
Hct 35.8 L %
(39.0-52.0)
MCHC 31.8 L g/dL
(33.0-37.0)
Abs Immat Gran (auto) 0.1 H 10^3/uL
(0-0.05)
Absolute Lymphs (auto) 0.8 L 10^3/uL
(1.2-3.4)
Absolute Monos (auto) 1.0 H 10^3/uL
(0.1-0.6)
Immature Gran % 1.1 H %
(0-0.5)
Lymphocytes % 9.2 L %
(20.5-51.1)
Monocytes % 12.4 H %
(1.7-9.3)
Eosinophils % 7.6 H %
(0-6)
Chloride 95 L mmol/L
(98-107)
Carbon Dioxide 34 H mmol/L
(22-30)
Creatinine 0.6 L mg/dL
(0.7-1.3)
Glucose 221 H mg/dl
(70-99)
Troponin I 0.141 H* ng/ml 0.044 H* D ng/ml
Total Protein 6.1 L g/dl
(6.3-8.2)
02/23/25 05:31
02/23/25 05:31
Vital Signs
Initial and Last Documented VS:
Initial Vital Signs
Temp Pulse Resp BP Pulse Ox
98.6 F 102 22 102/72 95
02/23/25 05:26 02/23/25 05:26 02/23/25 05:26 02/23/25 05:26 02/23/25 05:26
Last Documented Vital Signs
Temp Pulse Resp BP Pulse Ox
98.6 F 100 21 186/102 98
02/23/25 05:26 02/23/25 13:00 02/23/25 13:00 02/23/25 13:00 02/23/25 13:00
MDM/Problems Addressed
MDM/Problems Addressed:
Will admit the patient for ACS due to elevated troponin and persistent chest pain after cardiology consultation. Stable on IV nitroglycerin, at this time no indication for IV heparin as there is no immediate plan for catheterization
*Critical Care Note
Total Time (30-74mins, 75-104mins- exclusive of procedures): Not Applicable
Update Note
Update Note:
1005: Case discussed with cardiology after consultation. At this time the case is quite challenging as the patient has likely persistent angina symptoms due to [place] CAD based on last cath report. Given his multitude of medical issues they feel
he is not a candidate for PCI. Historically has not tolerated up titration of antianginal therapies due to orthostatic hypotension. Cardiology recommends we admit the patient to the hospitalist service for medication titration, at this time we
will attempt to wean down IV nitroglycerin and replaced with the Nitropatch.
1016: [employer] message sent to Dr. Kaplan, hospitalist physician on-call for admission
ED Attending Note
-
Portions of this chart may have been created with voice recognition software.� Occasional wrong word or��sound alike� substitutions may have occurred due to the inherent limitations of voice recognition software.
Discharge Plan
Departure
Patient Disposition: Admit
Date of Disposition: 02/23/25
Time of Disposition: 10:16
Admit to: Telemetry
Presentation/result/management discussed w/ accepting MD/DO: Hospitalist
Discharge Problem:
ACS (acute coronary syndrome)
Prescriptions:
No Action
ipratropium-albuterol 0.5 mg-3 mg(2.5 mg base)/3 mL Solution For Nebulization
3 ml INHALATION R QIDPRN PRN (Reason: SOB)
albuterol sulfate 90 mcg/actuation Hfa Aerosol Inhaler
2 puff INHALATION R Q6HPRN PRN (Reason: SOB)
tamsulosin 0.4 mg Capsule
0.4 mg PO DAILY
atorvastatin 80 MG tablet
80 mg PO DAILY
pantoprazole 40 MG tablet,delayed release (DR/EC)
40 mg PO DAILY
budesonide 0.5 mg/2 mL Suspension For Nebulization
0.5 mg inhalation R BID Qty: 60 0RF
aspirin [Children's Aspirin] 81 mg Tablet,Chewable
81 mg PO DAILY Qty: 1 0RF
prednisone 10 MG tablet
10 mg PO DAILY Qty: 0 0RF
Rx Instructions:
once done with steroid taper
azithromycin 250 MG tablet
250 mg PO DAILY Qty: 0 0RF
Rx Instructions:
once done with augmentin
potassium chloride 20 mEq tablet,ER particles/crystals
20 meq PO DAILY
ascorbic acid (vitamin C) [Vitamin C] 500 mg tablet
500 mg PO DAILY
nitroglycerin [Nitrostat] 0.4 mg Tablet, Sublingual
0.4 mg SUBLINGUAL [id number] PRN (Reason: chest pain)
sertraline 50 mg tablet
150 mg PO DAILY
bupropion HCl 300 mg tablet extended release 24 hr
300 mg PO DAILY
midodrine 10 mg tablet
10 mg PO TID Qty: 0 0RF
Rx Instructions:
Hold for SBP>116 mmHg; * Avoid dosing after evening meal or within 4 hours of bedtime *
acetaminophen 325 mg Tablet
650 mg PO Q4HPRN PRN (Reason: mild pain/fever)
magnesium hydroxide [Milk of Magnesia] 400 mg/5 mL Suspension
30 ml PO HSPRN PRN (Reason: constipation)
bisacodyl 10 mg Suppository
10 mg RI [id number] PRN (Reason: if mom ineffective)
insulin glargine [Lantus U-100 Insulin] 100 unit/mL solution
3 unit SC HS
lorazepam 0.5 mg tablet
0.5 mg PO TIDPRN PRN (Reason: sleep/anxiety)
melatonin 3 mg Tablet
3 mg PO HS
Mucinex DM 30-600 mg Tablet Extended Release 12 Hr
1 tab PO Q12H
fluticasone propionate [Flonase] 50 mcg/actuation [place],Suspension
2 spray INTRANASAL DAILYPRN PRN (Reason: allergies)
furosemide 40 mg tablet
20 mg PO MOWEFR
carvedilol 3.125 mg tablet
6.25 mg PO BID
Referrals:
Renan Pedroza DO [Family Provider] -
Interventions
Interventions:
*Risk Screen - Suicide Last Done: 02/23/25 05:26
*General Assessment Last Done: 02/23/25 05:26
*Neglect/Abuse Screening Last Done: 02/23/25 05:26
*ED- Fall Risk Assessment Last Done: 02/23/25 05:26
*ED COVID-19 Vaccine History Last Done: 02/23/25 05:35
ED- Cardiac Assessment Last Done: 02/23/25 05:43
Discharge Date and Time
Print Language: BELARUSIAN
[2025-02-23] MEDS: NITROGLYCERIN PREMIX 250 IV (06:52)
[2025-02-23 06:58] LABS: COVID-19 Antigen Negative (Negative)
[2025-02-23 07:37] LABS: NT-proBNP 333 pg/ml
[2025-02-23 08:38] LABS: Troponin I 0.044 ng/ml
--- NOTE | 2025-02-23 10:21 | CON.CAR ---
Addendum entered and electronically signed by Milli Acharya DO 02/23/25 17:59:
I saw and examined the patient.
The Electric Distribution Checker's note was reviewed and I agree with the note.
Comment: Patient was seen and examined in ED 38. Patient is a 70-year-old male with past medical history of complex multivessel CAD with prior CABG x 2 in 1998. He also has history of orthostasis with falls on chronic midodrine 10 mg 3 times
daily. His orthostasis has made managing his CAD more difficult. By his last cath in 2019 his LAD was functionally occluded with bridging collaterals, GAR to LAD was patent, diagonals were jeopardized filling retrograde, circumflex occluded, OM
branch filling via left to left collaterals, JONO off of GAR was patent and RCA was nondominant with 90% proximal stenosis. It is felt that tachycardia prompts him to become ischemic jeopardizing retrograde flow in the LAD and possibly circumflex
distribution. He was previously not felt to have good options for PCI or for redo CABG. Management of tachycardia has been limited by orthostasis. He is tolerating Coreg 6.25 mg twice daily. He previously did not tolerate nitrates due to
hypotension. He was not felt to be ideal candidate for Ranexa given potential QT prolongation as on both Zithromax and sertraline as an outpatient. He was being considered for ivabradine, but was felt to be cost prohibitive. He reports he has now
had several episodes of chest discomfort [facility]. Last evening he had chest discomfort which woke him from sleep. He was given SL nitro x2 with some initial improvement, however pain then recurred and he was
brought to ER. Initial trop 0.141, repeat 0.044. EKG abnormal but stable compared to prior. Currently pain free on IV nitro @25. Cardiology consulted for evaluation.
General: Lying relatively supine but coughing. No chest pain but is complaining of a headache on nitroglycerin drip. AAO x 3
Heart: Regular, tachy, positive S1/S2, No murmur
Lungs: Bronchovesicular breath sounds with coarse rhonchi bilateral and scattered end expiratory wheezes.
Abd: Positive BS, NT/ND, neg rebound/rigidity/guarding
Ext: Trace pedal edema bilaterally right greater than left
Neuro: nonfocal
Plan:
Recurrent chest pain with known coronary artery disease previously not felt to have good options for further revascularization at time of last cardiac catheterization in 2019
- Currently chest pain-free on IV nitroglycerin which is being weaned
- Peak troponin 0.141
- Repeat echocardiogram dilated left ventricle with overall low normal LV systolic function with mild to moderate LVH and no significant valve disease. No pericardial effusion.
- Discussed with his outpatient derrickman helper Dr. Woo given patient's desire for more conservative medical therapy: Wean IV nitroglycerin off. Start nitroglycerin patch 0.1 with close following of blood pressures given prior history of orthostatic
hypotension.
-Continue aspirin 81 mg daily.
- Continue current dose of Coreg; titration has been limited by hypotension
- Sinus tachycardia with inability to uptitrate AV tawanda blocking agents due to orthostatic hypotension. Trial of Corlanor 2.5 mg twice daily
- Continue atorvastatin; goal LDL 55-60 mg/dL
- Consider addition of Xarelto for CAD indication 2.5 mg twice daily
-At this point no plan for cardiac intervention
Sinus tachycardia
- Patient does have sinus tachycardia and prior history of paroxysmal atrial flutter status post ablation in 2018 and atrial fibrillation diagnosed in 2019 with no known recurrence
- Historically has not been anticoagulated
- Trial of Corlanor. Continue low-dose beta-renato
- Monitor on telemetry
- Check TSH
History of heart failure with preserved ejection fraction and prior recovered ischemic cardiomyopathy
- Repeat echocardiogram stable
- proBNP not significantly elevated
- Continue Lasix 20 mg Wednesday
- Continue midodrine with history of orthostatic hypotension
DNR status noted
COPD on chronic O2 with cough and concern for bronchitis
- Checks x-ray without pneumonia
- WBC count not elevated
- Will defer to primary
Addendum entered and electronically signed by Danii Quiroga PA-C 02/23/25 12:23:
per [facility], cost of corlanor at facility would be $4.80 per month. would consider initiation of corlanor 2.5mg BID upon DC.
Original Note:
Consultation
Consultation Request
Date/Time Consultation Performed: 02/23/25
Requesting Provider: Luis Daniel Gay PA-C
Performing Provider: Danii Quiroga PA-C for Dr. Acharya
Reason for Consultation: CP
Medical History
-
Chief Complaint: CP
History of Present Illness:
Patient is a 70-year-old male with past medical history of complex multivessel CAD with prior CABG x 2 in 1998. He also has history of orthostasis with falls on chronic midodrine 10 mg 3 times daily. His orthostasis has made managing his CAD more
difficult. By his last cath in 2019 his LAD was functionally occluded with bridging collaterals, GAR to LAD was patent, diagonals were jeopardized filling retrograde, circumflex occluded, OM branch filling via left to left collaterals, JONO off of
GAR was patent and RCA was nondominant with 90% proximal stenosis. It is felt that tachycardia prompts him to become ischemic jeopardizing retrograde flow in the LAD and possibly circumflex distribution. He was previously not felt to have good
options for PCI or for redo CABG. Management of tachycardia has been limited by orthostasis. He is tolerating Coreg 6.25 mg twice daily. He previously did not tolerate nitrates due to hypotension. He was not felt to be ideal candidate for Ranexa
given potential QT prolongation as on both Zithromax and sertraline as an outpatient. He was being considered for ivabradine, but was felt to be cost prohibitive. He reports he has now had several episodes of chest discomfort requiring sublingual
nitro [facility]. Last evening he had chest discomfort which woke him from sleep. He was given SL nitro x2 with some initial improvement, however pain then recurred and he was brought to ER. Initial trop 0.141, repeat 0.044. EKG abnormal but
stable compared to prior. Currently pain free on IV nitro @25. Cardiology consulted for evaluation.
PMH:
Chronic HFpEF
CAD
s/p CABG 1998 at [facility] with GAR to LAD and free JONO Y graft from GAR to OM
NSTEMI with peak trop 0.4. cath showed progression of [place] CAD however patient bypass grafts 12/2019
History of recovered ischemic cardiomyopathy, EF 50 to 55% by echo 11/2024
h/o NSVT
orthostatic hypotension
Sinus tachycardia
Paroxysmal atrial flutter s/p ablation in 2018
Paroxysmal atrial fibrillation
diagnosed during 12/2019 admission without known recurrence
Not chronically anticoagulated due to patient's choice and low burden of atrial arrhythmia
PVD with History of endovascular AAA repair and bilateral femoral artery endarterectomy and profundoplasty 07/2018
Type 2 diabetes
Hypertension
Hypercholesterolemia
Chronic right bundle-branch block
COPD on chronic supp O2, 3L
History of duodenal ulcer with microperforation in 2017
h/o daily ETOH use now abstinent
Former smoker
DNR
Past Medical History
Past Medical History: Other (in HPI)
Past Surgical History: Cardiac (CABG 1998, atrial flutter ablation 2017), Cholecystectomy, Tonsilectomy and Other (endovascular AAA repair 2016)
Social History
Tobacco: Former Smoker
Alcohol: None (he says he stopped drinking)
Drug: None
Personal: Single
Living: [facility]
Family History
Family History: CAD and Cancer (lung cancer)
Allergies / Home Medications
Allergy/AdvReac Type Severity Reaction Status Date / Time
lisinopril Allergy throat Verified 02/23/25 06:34
closes
�Medication �Instructions �Recorded �Confirmed �Type
albuterol sulfate 90 mcg/actuation 2 puff inhalation R Q6HPRN PRN SOB 07/02/23 02/23/25 History
aerosol inhaler
atorvastatin 80 mg tablet 80 mg PO DAILY High cholesterol 07/02/23 02/23/25 History
ipratropium 0.5 mg-albuterol 3 mg 3 ml inhalation R QIDPRN PRN SOB 07/02/23 02/23/25 History
(2.5 mg base)/3 mL nebulization
soln
pantoprazole 40 mg tablet,delayed 40 mg PO DAILY Gastrointestinal 07/02/23 02/23/25 History
release issue
tamsulosin 0.4 mg capsule 0.4 mg PO DAILY BPH 07/02/23 02/23/25 History
budesonide 0.5 mg/2 mL suspension 0.5 mg (2 mL) inhalation R BID 07/06/23 02/23/25 Rx
for nebulization copd #60 mL
aspirin 81 mg chewable tablet 81 mg PO DAILY #1 tab 09/10/23 02/23/25 Rx
(Children's Aspirin)
azithromycin 250 mg tablet 250 mg PO DAILY Infection #0 tabs 09/10/23 02/23/25 Rx
prednisone 10 mg tablet 10 mg PO DAILY Anti-inflammatory 09/10/23 02/23/25 Rx
#0 tabs
ascorbic acid (vitamin C) 500 mg 500 mg PO DAILY 12/05/24 02/23/25 History
tablet (Vitamin C)
bupropion HCl 300 mg 24 hr tablet, 300 mg PO DAILY 12/05/24 02/23/25 History
extended release
nitroglycerin 0.4 mg sublingual 0.4 mg sublingual [id number] PRN 12/05/24 02/23/25 History
tablet (Nitrostat) chest pain
potassium chloride 20 mEq 20 meq PO DAILY 12/05/24 02/23/25 History
tablet,extended release(part/cryst)
sertraline 50 mg tablet 150 mg PO DAILY 12/05/24 02/23/25 History
midodrine 10 mg tablet 10 mg PO TID #0 tabs 12/06/24 02/23/25 Rx
acetaminophen 325 mg tablet 650 mg PO Q4HPRN PRN mild 12/08/24 02/23/25 History
pain/fever
bisacodyl 10 mg rectal suppository 10 mg NM [id number] PRN if mom 12/08/24 02/23/25 History
ineffective
insulin glargine 100 unit/mL 3 unit SC HS 12/08/24 02/23/25 History
subcutaneous solution (Lantus
U-100 Insulin)
lorazepam 0.5 mg tablet 0.5 mg PO TIDPRN PRN sleep/anxiety 12/08/24 02/23/25 History
magnesium hydroxide 400 mg/5 mL 30 ml PO HSPRN PRN constipation 12/08/24 02/23/25 History
oral suspension (Milk of Magnesia)
carvedilol 3.125 mg tablet 6.25 mg PO BID 02/23/25 02/23/25 History
dextromethorphan-guaifenesin 30 1 tab PO Q12H 02/23/25 02/23/25 History
mg-600 mg tablet extended
[id number] hr (Mucinex DM)
fluticasone propionate 50 2 spray intranasal DAILYPRN PRN 02/23/25 02/23/25 History
mcg/actuation nasal allergies
spray,suspension
furosemide 40 mg tablet 20 mg PO MOWEFR 02/23/25 02/23/25 History
melatonin 3 mg tablet 3 mg PO HS 02/23/25 02/23/25 History
Review of Systems
-
History Source: Patient
All other systems: Negative unless noted
Physical Exam
Vital Signs
Temp Pulse Resp BP Pulse Ox
98.6 F 96 22 112/84 97
02/23/25 05:26 02/23/25 09:30 02/23/25 09:30 02/23/25 09:25 02/23/25 09:30
Lab Results
02/23/25 05:31
02/23/25 05:31
Troponin I 0.044 ng/ml H* D 02/23/25 07:42
Rvl-T-Ypenkihvsul Pept 333 pg/ml 02/23/25 05:31
Physical Exam
General: No Apparent Distress, Comfortable and Other (on 3L NC)
HEENT: Normocephalic, Anicteric and Moist Mucous Membranes
Respiratory: Clear and Non Labored Respirations
Cardiac: S1/S2 and Regular Rhythm
GI: Soft, Non Tender, Non Distended and Normal Bowel Sounds
Musculoskeletal: No Clubbing, No Cyanosis and No Edema
Skin: Warm and Dry
Neuro: AO x 3
Impression / Plan
-
Primary Substation Inspector: Dr. MILA Woo
Assessment:
Presentation with CP
Elevated troponin
CAD
s/p CABG 1998 at [facility] with GAR to LAD and free JONO Y graft from GAR to OM
NSTEMI with peak trop 0.4. cath showed progression of [place] CAD however patient bypass grafts 12/2019
Chronic HFpEF
History of recovered ischemic cardiomyopathy, EF 50 to 55% by echo 11/2024
h/o NSVT
orthostatic hypotension
Sinus tachycardia
Paroxysmal atrial flutter s/p ablation in 2017
Paroxysmal atrial fibrillation
diagnosed during 12/2019 admission without known recurrence
Not chronically anticoagulated due to patient's choice and low burden of atrial arrhythmia
PVD with History of endovascular AAA repair and bilateral femoral artery endarterectomy and profundoplasty 07/2018
Type 2 diabetes
Hypertension
Hypercholesterolemia
Chronic right bundle-branch block
COPD on chronic supp O2, 3L
History of duodenal ulcer with microperforation in 2018
h/o daily ETOH use now abstinent
Former smoker
DNR CODE STATUS
ECHO 09/06/23: Definity used, EF 45 to 50%, global hypokinesis, stage I diastolic dysfunction, mild MR, trace TR, PAP 25 to 30 mmHg
Echo 12/11/2024: EF 50 to 55%, no regional wall motion abnormalities, mild concentric LVH, no significant valvular disease
Plan:
-Patient presents with chest discomfort. initial trop 0.141, second 0.044. continue to trend
-historically patient not felt to have good options for revascularization of his significant coronary disease. reviewed last cath films from 2019 with IC. felt to potentially be candidate for repeat cath to reassess anatomy, however unlikely to have
significant change which would impact revascularization options
-remains CP free on IV nitro @25. he reports a headache. have asked ER PA to reduce dose and assess for recurrence of chest discomfort. will plan to transition patient from IV nitro to nitro patch @0.1 and follow BPs/ortho VS overnight. he reports
he is not very ambulatory at [place]
-check follow up echo, last from 12/11/24 as above
-he was previously felt to be good candidate for corlanor however was felt to be cost prohibitive. would consider reassessment as now resident of [facility]. CM assessing
-continue asa, coreg, lipitor
-continue po lasix 20mg MWF
-continue OP midodrine 10mg TID
-d/w ER PA
Data Reviewed
-
EKG: Tracing Personally Visualized and interpreted
Medical Tests (Nuc Med, Echo etc): Report Reviewed by me
Labs: Labs Reviewed by me
Old Records: Reviewed
--- NOTE | 2025-02-23 12:34 | W.PN.UPDATE ---
Update Note
Progress Note Update
CXR without evidence of acute CHF and proBNP not significantly elevated at 333, but with some LE edema. will increase po lasix from MWF dosing to 20mg po daily and assess response. may need evaluation for bronchitis as patient with cough and rhonchi
on exam.
[2025-02-23] MEDS: NITRO-DUR 0.1 MG TRANSDERM (13:39)
--- NOTE | 2025-02-23 14:18 | HPS.HSE ---
Addendum entered and electronically signed by Kirs Bermudez DO 02/23/25 14:39:
Patient now off of nitro drip and onto Nitropatch. Blood pressure 144/92 on last check. Will not be overly aggressive at escalating antihypertensive regimen with significant orthostatic hypotension history. Continue to monitor blood pressure
closely
Original Note:
Family Physician
-
Family Physician: Renan Pedroza,
Chief Complaint
-
Chest Pain
History of Present Illness
70-year-old male with chronic hypoxemic and hypercapnic respiratory failure (baseline 3 L), severe COPD, HFrecEF, CAD s/p CABG, AAA s/p EVAR (2017), paroxysmal AF/AFL s/p CTI ablation (not on AC), chronic RBBB, orthostatic hypotension, IDDM, H/O
duodenal ulcer with microperforation (2018), H/O Daily alcohol use, H/O tobacco use that is presenting to the hospital today with a complaint of chest pain. Chest pain started at approximately 1 AM when it awoke him from sleep. Was given
nitroglycerin at the time with resolution of the pain however it recurred near 4 AM and intermittently recurred 3 times subsequently. Pain was rated between 3 and 9/10 and associated with dyspnea which resolved prior to arrival. Denies recent
fevers or chills, edema, weight gain. Has chronically elevated heart rate has been difficult to treat with his history of orthostasis. Per cardiology has been under consideration for ivabradine. AFVSS throughout ED course. Initial troponin 0.141
with repeat 0.044. ECG with chronic RBBB and T wave abnormality but unchanged from previous. Chest x-ray was unremarkable. Labs otherwise with hemoglobin 11.4, bicarb 34, glucose 221. Was started on a nitroglycerin drip while in the ED.
Medical History
Past Medical History
Past Medical History: Reports Other
Additional Past Medical History:
Chronic respiratory failure (3 L)
Severe COPD
HFrecEF/ischemic cardiomyopathy
CAD s/p CABG
AAA s/p EVAR
Paroxysmal AF/AFL s/p CTI ablation
Chronic RBBB
Orthostatic hypotension
IDDM
History of PUD with microperforation
History of alcohol and tobacco use
Past Surgical History: Reports Other
Additional Past Surgical History:
CABG (1998)
CTI ablation (2017)
Cholecystectomy
Tonsillectomy
EVAR (2016)
Social History
Tobacco: Former Smoker
Alcohol: Former
Drug: None
Family History
Family History: Not pertinent
Allergies / Home Medications
Allergies reflects when Allergies were last updated in [facility].
Home Medications with original date entered in [facility]
Allergy/Medication List:
Allergies
Allergy/AdvReac Type Severity Reaction Status Date / Time
lisinopril Allergy throat Verified 02/23/25 06:34
closes
Home Medications
albuterol sulfate 90 mcg/actuation aerosol inhaler 2 puff inhalation R Q6HPRN PRN SOB 07/02/23
atorvastatin 80 mg tablet 80 mg PO DAILY High cholesterol 07/02/23
ipratropium 0.5 mg-albuterol 3 mg (2.5 mg base)/3 mL nebulization soln 3 ml inhalation R QIDPRN PRN SOB 07/02/23
pantoprazole 40 mg tablet,delayed release 40 mg PO DAILY Gastrointestinal issue 07/02/23
tamsulosin 0.4 mg capsule 0.4 mg PO DAILY BPH 07/02/23
budesonide 0.5 mg/2 mL suspension for nebulization 0.5 mg (2 mL) inhalation R BID copd #60 mL 07/06/23
aspirin 81 mg chewable tablet (Children's Aspirin) 81 mg PO DAILY #1 tab 09/10/23
azithromycin 250 mg tablet 250 mg PO DAILY Infection #0 tabs 09/10/23
prednisone 10 mg tablet 10 mg PO DAILY Anti-inflammatory #0 tabs 09/10/23
ascorbic acid (vitamin C) 500 mg tablet (Vitamin C) 500 mg PO DAILY 12/05/24
bupropion HCl 300 mg 24 hr tablet, extended release 300 mg PO DAILY 12/05/24
nitroglycerin 0.4 mg sublingual tablet (Nitrostat) 0.4 mg sublingual [id number] PRN chest pain 12/05/24
potassium chloride 20 mEq tablet,extended release(part/cryst) 20 meq PO DAILY 12/05/24
sertraline 50 mg tablet 150 mg PO DAILY 12/05/24
midodrine 10 mg tablet 10 mg PO TID #0 tabs 12/06/24
acetaminophen 325 mg tablet 650 mg PO Q4HPRN PRN mild pain/fever 12/08/24
bisacodyl 10 mg rectal suppository 10 mg [place] [id number] PRN if mom ineffective 12/08/24
insulin glargine 100 unit/mL subcutaneous solution (Lantus U-100 Insulin) 3 unit SC HS 12/08/24
lorazepam 0.5 mg tablet 0.5 mg PO TIDPRN PRN sleep/anxiety 12/08/24
magnesium hydroxide 400 mg/5 mL oral suspension (Milk of Magnesia) 30 ml PO HSPRN PRN constipation 12/08/24
carvedilol 3.125 mg tablet 6.25 mg PO BID 02/23/25
dextromethorphan-guaifenesin 30 mg-600 mg tablet extended [id number] hr (Mucinex DM) 1 tab PO Q12H 02/23/25
fluticasone propionate 50 mcg/actuation nasal spray,suspension 2 spray intranasal DAILYPRN PRN allergies 02/23/25
furosemide 40 mg tablet 20 mg PO MOWEFR 02/23/25
melatonin 3 mg tablet 3 mg PO HS 02/23/25
Review of Systems
-
A 12 point ROS was completed and negative except as noted: Yes
Constitutional: Reports No Symptoms
EENT: Reports No Symptoms
Respiratory: Reports See HPI
Cardiac: Reports See HPI
Abdomen/GI: Reports No Symptoms
: Reports No Symptoms
Musculoskeletal: Reports No Symptoms
Skin: Reports No Symptoms
Neurological: Reports No Symptoms
Endocrine: Reports No Symptoms
Hematologic/Lymphatic: Reports No Symptoms
Psych: Reports No Symptoms
Physical Exam
Vital Signs
Vital Signs
Temp Pulse Resp BP Pulse Ox
98.6 F 96 31 179/100 98
02/23/25 05:26 02/23/25 13:30 02/23/25 13:30 02/23/25 13:30 02/23/25 13:30
Physical Exam
General: Well Developed, No Apparent Distress and Appears Chronically Ill
HEENT: NormoCephalic, Anicteric, Moist mucous membranes, Atraumatic, PERRLA and Oxygen
Respiratory: Wheezes, Rhonchi, Non Labored Respirations and Decreased Breath Sounds; No Rales or Accessory Resp Muscle Use
Cardiac: S1/S2, Regular Rhythm, Peripheral Edema (1+) and Other (Palpable pulses); No Murmur, Rub or Gallop
GI: Soft, Non Tender, Non Distended and Normal Bowel Sounds
Musculoskeletal: No Clubbing, No Cyanosis and No Edema
Skin: Warm and Dry; No Rash
Neuro: AO x 3, Nonfocal/grossly intact and Cranial Nerves Intact; No Tremors
Psych: Calm
Laboratory Results
-
02/23/25 05:31
02/23/25 05:31
Laboratory Results
Total Bilirubin 0.3 mg/dl (0.2-1.3) 02/23/25 05:31
AST 20 U/L (17-59) 02/23/25 05:31
ALT 30 U/L (0-50) 02/23/25 05:31
Alkaline Phosphatase 109 U/L (38-126) 02/23/25 05:31
Troponin I 0.044 ng/ml H* D 02/23/25 07:42
Data Reviewed
-
Lab Data: Discussed with Physician (Cards, ED) and Discussed with Patient
Impression/Plan
-
#NSTEMI (Type 2 > Type 1)
#Chronic HFrecEF
#CAD s/p CABG
-Presented with elevated troponin and chest pain, ECG unchanged; chest pain resolved troponin downtrend
-Suspect this is type II NSTEMI with demand from tachycardia; per cards, not candidate for revascularization
-Was started on nitroglycerin drip upon arrival with resolution of CP; planning to transition to Nitropatch
-Was previously evaluated for ivabradine, felt to be a good option but cost prohibitive; affordable now
-Cardiology recommended repeat echocardiogram, ivabradine 2.5 mg twice daily at discharge
-Continue nitroglycerin drip with plan to transition to patch
-Continue current GDMT, lasix (now QD), and midodrine
-Plan for ivabradine 2.5 mg twice daily at discharge
-Monitor on telemetry, admit to IVU, follow-up FLP
-Consderation for LHC
-Update TTE
#Chronic hypoxemic and hypercapnic respiratory failure
#Severe COPD
#Chronic steroid
-Last PFTs with FEV1 percent 27% of expected, and DLCO 21% predicted
-Home regimen includes prednisone, azithromycin, budesonide inhaler, DuoNebs
-Utilizes 3 L of supplemental oxygen at baseline
-Stable on baseline O2, does have some wheezes
-Continue as needed DuoNeb, low threshold to increase steroid for short course
#Paroxysmal AF/AFL
#S/p CTI ablation
-Home regimen includes carvedilol; not on anticoagulation due to low burden of arrhythmia and patient preference
-Heart rate here borderline tachycardic though regular
-Continue on telemetry
#IDDM
-Home medications include Lantus 3 units nightly, not on other medications at this time
-No known microvascular applications though likely related to CAD/PAD
-Continue home Lantus and start ISS with Accu-Cheks
-BG goal 140-180
#Orthostatic hypotension
-Home medications include midodrine 10 mg 3 times daily
-Will monitor orthostatics and BP while here
#H/O duodenal ulcer with microperforation
-Home regimen includes daily PPI
-No signs of bleeding
Diet: Low-cholesterol, NPO @ [place] in case of LHC
DVT prophylaxis: SQ heparin
CODE STATUS: DNR
--- NOTE | 2025-02-23 15:14 | CARDSERVLU ---
Echocardiogram with Lumason completed after protocol screening completed. Allergies verified.
Patent IV site: __Left AC___
IV site flushed with 0.9% NaCl pre and post administration.
Diluted bolus method utilized to enhance visualization of ventricular godinez.
Total volume given: ___5.0_ mL
Patient tolerated all procedures well without complications.
[2025-02-23] MEDS: TYLENOL 650 MG PO ×2 (16:23→23:21)
[2025-02-23] MEDS: HEPARIN 5000 UNITS SC ×2 (16:24→23:21)
[2025-02-23] MEDS: DUONEB 3 ML INH ×2 (16:50→20:57)
[2025-02-23] MEDS: LASIX 20 MG PO (17:55)
--- NOTE | 2025-02-23 19:25 | PTCARENOTE ---
Pt who awoke with chest discomfort this morning admitted from ED. Pt deneid chest discomfort on arrival to IVU but he was in resp. distress withresp rate of 24 with very decreased breath sounds throughout. Urgent neb.treatment given with good
improvement. Pt has a productive cough with clear sputum. Pt is oriented, placed on fall precautions after a recent fall, pt calling appropriately for assistance. Telemetry shows sinus rhythm with RBBB adn occasional PVC's.
--- NOTE | 2025-02-23 19:45 | PTCARENOTE ---
Assumed care of pt from prev nsg shift; Pt drowsy but easily arousable, AAOx3 w/no c/o CP or SOB. Pt's VSS w/HR in the 90's & BP 155/88. Pt is SR w/R BBB & occas PVC's on telemetry monitoring. Pt voiding frequently; urine clear yellow. Pt w/call
kuhn within reach & no addtl needs at this time. Plan of care ongoing.
[2025-02-23] MEDS: PULMICORT 0.5 MG INH (20:57)
[2025-02-23] MEDS: MUCINEX 600 MG PO (21:18)
[2025-02-23] MEDS: COREG 6.25 MG PO (21:18)
[2025-02-23 22:13] LABS: Glucose - Point of Care 201 mg/dl (70-99)
[2025-02-23] MEDS: LANTUS 0.03 UNITS SC (22:38)
[2025-02-23] MEDS: MELATONIN 3 MG PO (22:38)
[2025-02-23] MEDS: ATIVAN 0.5 MG PO (23:21)
[2025-02-24] VITALS (11 sets, daily range): BP systolic 87–175; BP diastolic 56–96; PULSE 86–90; O2SAT 96; BMI 27.6
[2025-02-24] MEDS: TYLENOL 650 MG PO (04:17)
[2025-02-24 05:32] LABS: Blood Urea Nitrogen 14 mg/dl (9-20); Calcium 8.9 mg/dl (8.4-10.2); Carbon Dioxide 34 mmol/L (22-30); Chloride 95 mmol/L (98-107); Estimated Creatinine Clearance 106 ml/min; Glucose 119 mg/dl (70-99); HDL Cholesterol 63 mg/dl; LDL Cholesterol, Calculated 45 mg/dl; Magnesium 1.6 mg/dl (1.6-2.3); Potassium 3.9 mmol/L (3.5-5.1); Sodium 138 mmol/L (135-145); Total Cholesterol 134 mg/dl (50-199); Triglyceride 130 mg/dl (10-149); Very Low Density Lipoprotein 26 mg/dl (0-30); eGFR > 60.00
[2025-02-24 05:51] LABS: % Basophils 0.5 % (0-2); % Eosinophils 10.7 % (0-6); % Lymphocytes 9.2 % (20.5-51.1); % Monocytes 13.4 % (1.7-9.3); % Neutrophils 65.2 % (42.2-75.2); Absolute Eosinophils 0.9 10^3/uL (0-0.7); Absolute Immature Granulocytes 0.1 10^3/uL (0-0.05); Absolute Lymphocytes 0.8 10^3/uL (1.2-3.4); Absolute Monocytes 1.1 10^3/uL (0.1-0.6); Absolute Neutrophils 5.5 10^3/uL (1.4-6.5); Hematocrit 36.8 % (39.0-52.0); Hemoglobin 11.7 g/dL (13.0-18.0); Mean Corp Hgb Conc. 31.8 g/dL (33.0-37.0); Mean Corpuscular Volume 91.1 fL (80.0-94.0); Mean Platelet Volume 9.3 fL (7.4-10.4); Nucleated Red Blood Cells % 0 % (-); Platelet Count 225 10^3/uL (130-400); Red Blood Cell Count 4.04 10^6/uL (4.70-6.10); Red Cell Dist. Width 12.6 % (11.5-14.5); White Blood Cell Count 8.4 10^3/uL (4.8-10.8)
--- NOTE | 2025-02-24 07:40 | W.PN.CARDCBS ---
Addendum entered and electronically signed by Jade Degroot MD 02/24/25 11:28:
I saw and examined the patient.
The Bi Consultant's note was reviewed and I agree with the note.
Comment:
He has no complaints currently he feels 90% of his baseline. No chest pain overnight and ambulating without difficulty.
He has had hypertension and significant history of orthostasis but midodrine was held this morning and now blood pressure on the low side again with orthostatic vital signs without symptoms.
At this time would reduce midodrine to 5 mg 3 times daily and hold for blood pressure greater than or equal to 155 mmHg systolic. This can be adjusted at his facility as needed given blood pressure lability.
Coronary artery disease with no current symptoms. Telemetry reviewed independently by me and stable.
No chest pain. Troponins had trended down. Continue conservative management given limited therapeutic options of multivessel coronary disease.
Echocardiogram also independently reviewed by me with LV mildly dilated low normal LV function 50%. No significant valve disease.
Antianginal medication adjusted and noted.
Plavix 75 mg daily added and can be reassessed as an outpatient as to whether to continue along with aspirin or consider low-dose Xarelto
Continue aggressive risk factor modification
Antianginals as tolerates. Unable to tolerate beta-renato in the past because of orthostasis. Heart rates now have improved and are in the 70s. As an outpatient if heart rates are elevated could consider Corlanor.
Bronchitis managed by primary service
Diabetes managed by primary service
PVD noted continue aggressive risk factor modification
History of atrial fibrillation/atrial flutter last episode 2019 by report and not currently on anticoagulation per patient preference.
Exam stable:
General: Well developed, well nourished in NAD.
Heart: Non displaced PMI, RRR, no murmurs, No S3, S4, no rubs.
Lungs: Coarse breath sounds with increased expiratory phase
Extremities: No clubbing, cyanosis or edema bilaterally.
Neuro: Pleasant and alert
Have discussed with Dr. Bermudez from a cardiac point of view patient stable for discharge to facility. We have arranged cardiac follow-up.
Original Note:
Today's Communication / Plan
-
Continue nitro patch, follow for recurrent headaches
Continue coreg, aspirin, atorvastatin
Consider corlanor
Management of bronchitis per primary service
Follow up arranged.
Impression / Plan
-
Primary Textile Chemist: Dr. MILA Woo
Assessment:
Presented with CP
Elevated troponin, possible Type 2 [place]
Bronchitis
CAD
s/p CABG 1998 at [facility] with GAR to LAD and free JONO Y graft from GAR to OM
NSTEMI with peak trop 0.4. cath showed progression of [place] CAD however patient bypass grafts 12/2019
Chronic HFpEF
History of recovered ischemic cardiomyopathy, EF 50% by echo 02/2025
h/o NSVT
orthostatic hypotension
Sinus tachycardia
Paroxysmal atrial flutter s/p ablation in 2017
Paroxysmal atrial fibrillation
diagnosed during 12/2019 admission without known recurrence
Not chronically anticoagulated due to patient's choice and low burden of atrial arrhythmia
PVD with History of endovascular AAA repair and bilateral femoral artery endarterectomy and profundoplasty 07/2018
Type 2 diabetes
Hypertension
Hypercholesterolemia
Chronic right bundle-branch block
COPD on chronic supp O2, 3L
History of duodenal ulcer with microperforation in 2017
h/o daily ETOH use now abstinent
Former smoker
DNR CODE STATUS
ECHO 09/06/23: Definity used, EF 45 to 50%, global hypokinesis, stage I diastolic dysfunction, mild MR, trace TR, PAP 25 to 30 mmHg
Echo 12/11/2024: EF 50 to 55%, no regional wall motion abnormalities, mild concentric LVH, no significant valvular disease
Echo 02/23/2025: EF 50%, mild to moderate concentric LVH, no significant valvular disease
Plan:
-Presented with chest discomfort. Elevated troponin noted with initial troponin 0.141, trending downwards thereafter.
-Will manage medically as patient historically was not felt to have good options for revascularization of his significant coronary disease.
-Chest pain resolved while on IV nitro, and this has been transitioned to nitro patch @ 0.1. Pain-free overnight, but does note has had some headaches. Will follow for now.
-BP stable this a.m. Continue to follow.
-Continue Coreg and midodrine 10 mg 3 times daily
-Echo 02/23/2025 showed preserved EF of 50% with no significant valvular disease as noted above.
-Intermittent sinus tachycardia noted this admission. Historically have been unable to uptitrate AV tawanda blockers due to orthostasis. Consider discharging on Corlanor 2.5 mg twice daily.
-Appears euvolemic. Continue Lasix 20 mg MWF. proBNP not significantly elevated.
-Continue aspirin, Lipitor. LDL 45
-Continue management of bronchitis per primary service. Only complaint this AM is cough. Receiving breathing treatment.
-Follow up arranged
Progress Note - Textile Chemist
Subjective
Date of Service: February 24, 2025
Only complaint is cough this AM. No CP, did have some headaches overnight. none currently.
Objective
Labs:
02/24/25 04:08
02/24/25 04:08
Labs
Hgb 11.7 g/dL (13.0-18.0) L 02/24/25 04:08
Hct 36.8 % (39.0-52.0) L 02/24/25 04:08
Plt Count 225 10^3/uL (130-400) 02/24/25 04:08
Sodium 138 mmol/L (135-145) 02/24/25 04:08
Potassium 3.9 mmol/L (3.5-5.1) 02/24/25 04:08
BUN 14 mg/dl (9-20) 02/24/25 04:08
Creatinine 0.6 mg/dL (0.7-1.3) L 02/24/25 04:08
Glucose 119 mg/dl (70-99) H 02/24/25 04:08
Troponins
02/23/25 02/23/25
05:31 07:42
Troponin I 0.141 H* 0.044 H* D
Vital Signs and I&O:
Vital Signs
Temp Pulse Resp BP Pulse Ox
97.6 F 68 20 128/72 98
02/24/25 04:03 02/24/25 04:30 02/24/25 04:03 02/24/25 04:04 02/24/25 04:03
Vital Signs
Temp Pulse Resp BP Pulse Ox
97.6 F 68 20 128/72 98
02/24/25 04:03 02/24/25 04:30 02/24/25 04:03 02/24/25 04:04 02/24/25 04:03
Intake & Output
02/22/25 02/23/25 02/24/25 02/25/25
06:59 06:59 06:59 06:59
Intake Total 1440 / 1440
Output Total 2069
Balance -630 / -630
Physical Exam
Physical Exam
GEN: No distress, awake, alert, oriented x3
HEENT: supple, anicteric, mmm
LUNGS: scattered rhonchi
CV: Reg, S1/S2, no murmur
EXT: No clubbing, cyanosis, or edema
NEURO: Gross non-focal
SKIN: Warm, dry, no rash
[2025-02-24] MEDS: DUONEB 3 ML INH (07:44)
[2025-02-24] MEDS: PULMICORT 0.5 MG INH (07:44)
[2025-02-24] MEDS: ZITHROMAX 250 MG PO (09:01)
[2025-02-24] MEDS: MUCINEX 600 MG PO (09:01)
[2025-02-24] MEDS: PROTONIX 40 MG PO (09:01)
[2025-02-24] MEDS: LIPITOR 80 MG PO (09:01)
[2025-02-24 09:02] LABS: Glucose - Point of Care 131 mg/dl (70-99)
[2025-02-24] MEDS: LOW STRENGTH ASPIRIN 81 MG PO (09:02)
[2025-02-24] MEDS: VITAMIN C 500 MG PO (09:02)
[2025-02-24] MEDS: KCL 20 MEQ PO (09:02)
[2025-02-24] MEDS: DELTASONE 10 MG PO (09:02)
[2025-02-24] MEDS: COREG 6.25 MG PO (09:02)
[2025-02-24] MEDS: FLOMAX 0.4 MG PO (09:02)
[2025-02-24] MEDS: HEPARIN 5000 UNITS SC (09:03)
--- NOTE | 2025-02-24 09:17 | PTOTSP ---
pt currently requires supervision to no assistance to complete simple ADLs, functional transfers, ambulation. pt on 3L O2 chronically, no shortness of breath, chest pain noted with activity. no acute OT needs identified at this time, will sign off.
[2025-02-24] MEDS: WELLBUTRIN XL (24 hour extended release) 300 MG PO (09:49)
[2025-02-24] MEDS: NITRO-DUR 0.1 MG TRANSDERM (09:49)
[2025-02-24] MEDS: ZOLOFT 150 MG PO (10:16)
--- NOTE | 2025-02-24 11:07 | W.PN.HOSP.TC ---
Addendum entered and electronically signed by Kris Bermudez DO 02/24/25 11:22:
Cardiology recommending to start Plavix. Will send to pharmacy, provide prescription for CBC in 5 days
Original Note:
Today's Communication/Plan
-
Continue Nitropaste
Start ivabradine at DC
Reduce midodrine to 5 mg 3 times daily (hold for SBP <155)
Discharge later
Assessment / Plan
Assessment / Plan
#NSTEMI (Type 2 > Type 1)
#Chronic HFrecEF
#CAD s/p CABG
-Presented with elevated troponin and chest pain, ECG unchanged; chest pain resolved troponin downtrend
-Suspect this is type II NSTEMI with demand from tachycardia; per cards, not candidate for revascularization
-Was started on nitroglycerin drip upon arrival with resolution of CP; planning to transition to Nitropatch
-Was previously evaluated for ivabradine, felt to be a good option but cost prohibitive; affordable now
-Cardiology recommended repeat echocardiogram, ivabradine 2.5 mg twice daily at discharge
-Continue current GDMT, lasix (M/W/F), and midodrine at 5 mg TID
-Plan for ivabradine 2.5 mg twice daily at discharge
-Continue nitroglycerin patch
#Chronic hypoxemic and hypercapnic respiratory failure
#Severe COPD
#Chronic steroid
-Last PFTs with FEV1 percent 27% of expected, and DLCO 21% predicted
-Home regimen includes prednisone, azithromycin, budesonide inhaler, DuoNebs
-Utilizes 3 L of supplemental oxygen at baseline
-Stable on baseline O2, does have some wheezes
-Continue as needed DuoNeb, low threshold to increase steroid for short course
#Paroxysmal AF/AFL
#S/p CTI ablation
-Home regimen includes carvedilol; not on anticoagulation due to low burden of arrhythmia and patient preference
-Heart rate here borderline tachycardic though regular
-Continue on telemetry
#IDDM
-Home medications include Lantus 3 units nightly, not on other medications at this time
-No known microvascular applications though likely related to CAD/PAD
-Continue home Lantus and start ISS with Accu-Cheks
-BG goal 140-180
#Orthostatic hypotension
-Home medications include midodrine 10 mg 3 times daily
-Will monitor orthostatics and BP while here
-Orthostatic vital signs positive, associated with symptoms
-Cardiology recommended reducing midodrine to 5 mg
#H/O duodenal ulcer with microperforation
-Home regimen includes daily PPI
-No signs of bleeding
Diet: Low-cholesterol, NPO @ MN in case of LHC
DVT prophylaxis: SQ heparin
CODE STATUS: DNR
Anticipated Discharge: Today
Subjective/Interval History
-
Date of Service: February 24, 2025
Seen and examined at the bedside. No acute events reported overnight. AFVSS this morning on baseline O2
Orthostatic vital signs were positive but not associated with symptoms. Echo yesterday relatively unchanged. No chest pain or anginal equivalents today
States he feels well and denies new complaints.
Objective Data
-
Labs:
Laboratory Results
02/24/25
04:08
WBC 8.4
Hgb 11.7 L
Hct 36.8 L
Plt Count 225
Sodium 138
Potassium 3.9
Chloride 95 L
Carbon Dioxide 34 H
BUN 14
Creatinine 0.6 L
Glucose 119 H
Calcium 8.9
Vital Signs:
Vital Signs
Temp Pulse Resp BP Pulse Ox
97.6 F 73 20 87/56 100
02/24/25 07:55 02/24/25 10:19 02/24/25 07:55 02/24/25 10:24 02/24/25 07:55
I&O
02/23/25 02/24/25 02/25/25
06:59 06:59 06:59
Intake Total 1439
Output Total 2069 200 / 200
Balance -630 / -630 -200 / -200
Review of Systems
-
History Source: Patient
All other systems: Reviewed and negative
Physical Exam
-
General: Well Developed, Well Nourished, No Apparent Distress and Appears Chronically Ill
HEENT: Normocephalic, Atraumatic, Moist Mucous Membranes, Anicteric and Oxygen
Respiratory: Non Labored Respirations and Decreased Breath Sounds; Negative Accessory Resp Muscle Use
Cardiac: Regular Rhythm and S1/S2; Negative Murmur, Rub, JVD or Gallop
GI: Soft, Nontender, Nondistended and Normal Bowel Sounds
Musculoskeletal: No Clubbing, No Cyanosis and No Edema
Skin: Warm, Dry and Normal Turgor; Negative Rash
Neuro: AO x 3 and Nonfocal/Grossly Intact; Negative Tremors
Psych: Calm
Data Reviewed
-
Medical Tests (Nuc Med, Echo etc): Report Reviewed by me and Discussed with Physician (Repair Miller)
Labs: Labs Reviewed by me and Discussed with Patient
[2025-02-24] MEDS: ProAmatine 5 MG PO (12:21)
[2025-02-24 12:55] LABS: Glucose - Point of Care 352 mg/dl (70-99)
--- NOTE | 2025-02-24 15:09 | W.DCSUMMARY ---
Discharge Summary
Discharge Data
Date of Admission: 02/23/25
Date of Discharge: 02/24/25
Total time spent discharging patient (in min): 31
-
Pending Results: No
Hospital Course
Discharging Physician :� Kris Bermudez DO
Disposition :� Home
���
Principal Discharge diagnosis :�
Angina
Elevated troponin
Type II NSTEMI
HFrecEF
Orthostasis
Chronic Discharge diagnosis :�
Chronic hypoxemic and hypercapnic respiratory failure (3 L O2)
Severe COPD
HFrecEF due to ischemic cardiomyopathy
CAD s/p CABG
AAA s/p EVAR
Paroxysmal AF/AFL not on AC s/p CTI
Orthostasis
IDDM
H/O peptic ulcer disease
Hospital Course :�
70-year-old male that presented to the hospital with a complaint of chest pain. Initial troponin mildly elevated with downtrend on repeat. Initial ECG without new ischemic findings. Was evaluated by cardiology and recommended transition of
antianginal therapy from as needed sublingual nitroglycerin to nitro patch. Also recommended to add Plavix to his regimen and reduce his midodrine from 10 mg to 5 mg with holding parameters for SBP >155 mmHg. His chest pain resolved shortly after
arrival. Was monitored on telemetry overnight. Had positive orthostatic vital signs on 03/23 that were not associated with symptoms. Cardiology recommended reducing midodrine at that time. Initial consideration for ivabradine due to persistent
tachycardia however on 02/24/2025 patient heart rate was near 73/min. Decision made to hold off on starting ivabradine until follow-up as an outpatient with cardiology. Evaluated by PT who recommended home
Consultants :
Lithograph Press Feeder: Milli Acharya DO
Important imaging findings :�
Chest x-ray 1 view AP portable (02/23/2025)
IMPRESSION:
1. Normal heart size without radiographic evidence for acute pulmonary edema.
2. Previous CABG surgery.
3. Mild subpleural subsegmental atelectasis/scarring in the lower lungs.
Procedure findings :� N/A
Follow-up :
PCP in 1 to 2 weeks
Cardiology on 03/14 in office
CBC in 5 days
Discharge Plan
-
Patient Disposition: Home (Routine Discharge)
Discharge Diagnosis/Procedures: Chest pain/Angina/elevated trop
Chronic respiratory failure
Ischemic cardiomyopathy
CAD s/p CABG
Orthostatic hypotension
Condition: Fair
Diet: No added salt and Restrict fluids to 64 oz
Activity: As tolerated
Driving Restrictions: Not until seen by your Dr
Bathing Restrictions: None
Blood Work: CBC and BMP 1 week after discharge
Specialty Instructions: Weigh Daily- Call MD for wt gain/loss 3 lbs overnight/5 lbs in 1 week
Instructions: Angina
Referrals:
Hillary Baird PA-C [Specified Professional Personl] - 03/14/25 10:20 am (You have a follow up visit with Dr. Woo's Hillary BURRIS, at the [place] office. Please call with questions. )
Renan Pedroza DO [Family Provider] -
Additional Discharge Medication Instructions: Decrease midodrine to 5 mg 3 times daily (hold if systolic blood pressure > 155 mmHg)
Start Plavix 75 mg daily
Start nitroglycerin patch daily
Stop nitroglycerin tablets
Prescriptions:
New
midodrine 5 mg Tablet
5 mg PO TID@0800,1300,1800 30 Days Qty: 90 0RF
Rx Instructions:
Hold if SBP >155 mmHg
nitroglycerin 0.1 mg/hr Patch 24 Hour
0.1 mg transdermal DAILY 30 Days Qty: 30 0RF
clopidogrel [Plavix] 75 mg tablet
75 mg PO DAILY Qty: 30 11RF
Continued
ipratropium-albuterol 0.5 mg-3 mg(2.5 mg base)/3 mL Solution For Nebulization
3 ml INHALATION R QIDPRN PRN (Reason: SOB)
albuterol sulfate 90 mcg/actuation Hfa Aerosol Inhaler
2 puff INHALATION R Q6HPRN PRN (Reason: SOB)
tamsulosin 0.4 mg Capsule
0.4 mg PO DAILY
atorvastatin 80 MG tablet
80 mg PO DAILY
pantoprazole 40 MG tablet,delayed release (DR/EC)
40 mg PO DAILY
budesonide 0.5 mg/2 mL Suspension For Nebulization
0.5 mg inhalation R BID Qty: 60 0RF
aspirin [Children's Aspirin] 81 mg Tablet,Chewable
81 mg PO DAILY Qty: 1 0RF
prednisone 10 MG tablet
10 mg PO DAILY Qty: 0 0RF
Rx Instructions:
once done with steroid taper
azithromycin 250 MG tablet
250 mg PO DAILY Qty: 0 0RF
Rx Instructions:
once done with augmentin
potassium chloride 20 mEq tablet,ER particles/crystals
20 meq PO DAILY
ascorbic acid (vitamin C) [Vitamin C] 500 mg tablet
500 mg PO DAILY
sertraline 50 mg tablet
150 mg PO DAILY
bupropion HCl 300 mg tablet extended release 24 hr
300 mg PO DAILY
acetaminophen 325 mg Tablet
650 mg PO Q4HPRN PRN (Reason: mild pain/fever)
magnesium hydroxide [Milk of Magnesia] 400 mg/5 mL Suspension
30 ml PO HSPRN PRN (Reason: constipation)
bisacodyl 10 mg Suppository
10 mg OH [id number] PRN (Reason: if mom ineffective)
insulin glargine [Lantus U-100 Insulin] 100 unit/mL solution
3 unit SC HS
lorazepam 0.5 mg tablet
0.5 mg PO TIDPRN PRN (Reason: sleep/anxiety)
melatonin 3 mg Tablet
3 mg PO HS
Mucinex DM 30-600 mg Tablet Extended Release 12 Hr
1 tab PO Q12H
fluticasone propionate 50 mcg/actuation [place],Suspension
2 spray INTRANASAL DAILYPRN PRN (Reason: allergies)
furosemide 40 mg tablet
20 mg PO MOWEFR
carvedilol 3.125 mg tablet
6.25 mg PO BID
Discontinued
nitroglycerin [Nitrostat] 0.4 mg Tablet, Sublingual
0.4 mg SUBLINGUAL [id number] PRN (Reason: chest pain)
midodrine 10 mg tablet
10 mg PO TID Qty: 0 0RF
Rx Instructions:
Hold for SBP>116 mmHg; * Avoid dosing after evening meal or within 4 hours of bedtime *
Discharge Orders:
Discharge Patient (As Directed); Ordered 02/24/25
Ordered By: Kris Bermudez
Care Plan Goals
Care Plan Goals:
Problem: Readiness for enhanced knowledge related to diagnosis and treatment plan
Goal: Understand your diagnosis and treatment plan needs, including medications if applicable.
Instructions: Know your diagnosis, underlying causes and treatment plan options, including medications if applicable. Consult with your health care team to learn about your diagnosis and treatment plan, including medications if applicable.
Discharge Date and Time
Discharge Date/Time: 02/24/25 13:40
Print Language: JORDANIAN
== END 2025-02-24 13:40 | DRG 281 ==
LOC: IVU 14:12
PROVIDERS: Physician Assistant; Student in an Organized Health Care Education/Training Program; ADMITTING PHYSICIAN Internal Medicine; EMERGENCY PHYSICIAN Emergency Medicine; FAMILY PHYSICIAN Student in an Organized Health Care Education/Training Program; OTHER PHYSICIAN Internal Medicine Cardiovascular Disease
DX: I25.118 Atherosclerotic heart disease of native coronary artery with other forms of angina pectoris (principal); I50.32 Chronic diastolic (congestive) heart failure; I21.A1 Myocardial infarction type 2; J96.11 Chronic respiratory failure with hypoxia; J98.11 Atelectasis; J96.12 Chronic respiratory failure with hypercapnia; Z87.891 Personal history of nicotine dependence; Z11.52 Encounter for screening for COVID-19; Z79.82 Long term (current) use of aspirin; Z66 Do not resuscitate; J44.9 Chronic obstructive pulmonary disease, unspecified; Z99.81 Dependence on supplemental oxygen; I25.2 Old myocardial infarction; I48.0 Paroxysmal atrial fibrillation; E11.51 Type 2 diabetes mellitus with diabetic peripheral angiopathy without gangrene; Z79.4 Long term (current) use of insulin; I95.1 Orthostatic hypotension; I25.5 Ischemic cardiomyopathy; I11.0 Hypertensive heart disease with heart failure; I25.10 Atherosclerotic heart disease of native coronary artery without angina pectoris; I45.10 Unspecified right bundle-branch block; Z79.899 Other long term (current) drug therapy; Z86.79 Personal history of other diseases of the circulatory system; Z87.11 Personal history of peptic ulcer disease; Z95.5 Presence of coronary angioplasty implant and graft; R00.0 Tachycardia, unspecified
CPT/HCPCS: 71045; 80048; 80053; 80061; 82962; 83735; 83880; 84484; 85025; 87070; 87502; 87811; 93005; 93306; 94640; 94760; 96365; 96366; 97162; 97166; 99285; Q9950

== ENCOUNTER → 2025-02-26 10:35 | Outpatient (REF) | payer MEDICARE, SELFPAY ==
[2025-02-26 11:13] LABS: % Basophils 0.5 % (0-2); % Eosinophils 12.3 % (0-6); % Lymphocytes 15.9 % (20.5-51.1); % Monocytes 15.6 % (1.7-9.3); % Neutrophils 54.7 % (42.2-75.2); Absolute Eosinophils 0.7 10^3/uL (0-0.7); Absolute Immature Granulocytes 0.1 10^3/uL (0-0.05); Absolute Lymphocytes 0.9 10^3/uL (1.2-3.4); Absolute Monocytes 0.9 10^3/uL (0.1-0.6); Absolute Neutrophils 3.2 10^3/uL (1.4-6.5); Hematocrit 34.3 % (39.0-52.0); Mean Corp Hgb Conc. 32.1 g/dL (33.0-37.0); Mean Corpuscular Hgb 29.1 pg (27.0-31.0); Mean Corpuscular Volume 90.7 fL (80.0-94.0); Mean Platelet Volume 9.3 fL (7.4-10.4); Nucleated Red Blood Cells % 0 % (-); Platelet Count 235 10^3/uL (130-400); Red Blood Cell Count 3.78 10^6/uL (4.70-6.10); Red Cell Dist. Width 12.6 % (11.5-14.5); White Blood Cell Count 5.8 10^3/uL (4.8-10.8)
[2025-02-26 11:45] LABS: ALT (SGPT) 25 U/L (0-50); AST (SGOT) 19 U/L (17-59); Albumin 3.6 g/dl (3.5-5.0); Alkaline Phosphatase 87 U/L (38-126); Blood Urea Nitrogen 11 mg/dl (9-20); Calcium 8.9 mg/dl (8.4-10.2); Carbon Dioxide 30 mmol/L (22-30); Chloride 96 mmol/L (98-107); Glucose 205 mg/dl (70-99); Potassium 3.5 mmol/L (3.5-5.1); Sodium 134 mmol/L (135-145); Total Bilirubin 0.4 mg/dl (0.2-1.3); eGFR > 60.00
[2025-02-26 11:54] LABS: NT-proBNP 424 pg/ml
== END ==
LOC: OLABN 10:35
PROVIDERS: ATTENDING PHYSICIAN Student in an Organized Health Care Education/Training Program
DX: I48.0 Paroxysmal atrial fibrillation (principal); J44.9 Chronic obstructive pulmonary disease, unspecified; I21.4 Non-ST elevation (NSTEMI) myocardial infarction
CPT/HCPCS: 36415; 80053; 83880; 85025

== ENCOUNTER → 2025-04-09 11:15 | Outpatient (REF) | payer MEDICARE, SELFPAY ==
[2025-04-09 13:46] LABS: Blood Urea Nitrogen 17 mg/dl (9-20); Calcium 9.3 mg/dl (8.4-10.2); Carbon Dioxide 28 mmol/L (22-30); Chloride 98 mmol/L (98-107); Glucose 287 mg/dl (70-99); Magnesium 1.7 mg/dl (1.6-2.3); Potassium 4.2 mmol/L (3.5-5.1); Sodium 134 mmol/L (135-145); eGFR > 60.00
== END ==
LOC: OLABN 11:15
PROVIDERS: ATTENDING PHYSICIAN Student in an Organized Health Care Education/Training Program
DX: I50.32 Chronic diastolic (congestive) heart failure (principal)
CPT/HCPCS: 36415; 80048; 83735

== ENCOUNTER 2025-04-13 16:21 | Inpatient (IN) | payer MEDICARE, MEDICAID, SELFPAY ==
[2025-04-13] VITALS (9 sets, daily range): BP systolic 111–168; BP diastolic 69–99; BMI 27.3; BMI 25.6
[2025-04-13 11:06] LABS: % Basophils 0.4 % (0-2); % Eosinophils 3.8 % (0-6); % Immature Granulocytes 0.8 % (0-0.5); % Lymphocytes 8.3 % (20.5-51.1); % Monocytes 9.6 % (1.7-9.3); % Neutrophils 77.1 % (42.2-75.2); Absolute Eosinophils 0.4 10^3/uL (0-0.7); Absolute Immature Granulocytes 0.1 10^3/uL (0-0.05); Absolute Lymphocytes 0.9 10^3/uL (1.2-3.4); Absolute Neutrophils 8.3 10^3/uL (1.4-6.5); Hematocrit 37.9 % (39.0-52.0); Hemoglobin 11.7 g/dL (13.0-18.0); Mean Corp Hgb Conc. 30.9 g/dL (33.0-37.0); Mean Corpuscular Hgb 28.5 pg (27.0-31.0); Mean Corpuscular Volume 92.2 fL (80.0-94.0); Nucleated Red Blood Cells % 0 % (-); Platelet Count 237 10^3/uL (130-400); Red Blood Cell Count 4.11 10^6/uL (4.70-6.10); White Blood Cell Count 10.8 10^3/uL (4.8-10.8)
[2025-04-13 11:21] LABS: APTT 26.3 Sec (23.4-35.0); INR 0.93; PT 12.8 Sec (11.4-14.6)
--- NOTE | 2025-04-13 11:23 | ED.GENMED ---
History of Present Illness
<Kayla Higgins PA-C - Last Filed: 04/13/25 23:29>
General
Chief Complaint: Chest Pain
Source: patient
Exam Limitations: none
Time Seen by Provider: 04/13/25 11:13
Nursing documentation reviewed up to this point in time: agreed with
History of Present Illness
History of Present Illness:
The patient is a 70-year-old male with extensive cardiopulmonary past medical history including previous AAA s/p repair, CABG, CHF, atrial fibrillation, COPD on chronic 3 L nasal cannula, insulin-dependent diabetes who presents to the emergency
department via EMS from [facility] for evaluation of chest discomfort. The patient reports the onset of chest pain this morning around 1:30 AM, described as constant and building up to a crescendo until improvement following medication
administration approximately 30 to 45 minutes before EMS arrival. He states that pain was localized to his left chest with radiation into his left arm and described as a 'aching '. He does report feeling more short of breath than his baseline
today however denies any cough or fever.
The patient does have a nitro patch which he wears for chronic chest pain however this was removed and patient was given 1 sublingual nitroglycerin and reports improvement in symptoms following this.
By my assessment�the pain has subsided. He denies any back pain. He denies recent falls, surgeries, or travel.
Past History
<Kayla Higgins PA-C - Last Filed: 04/13/25 23:29>
Past History
ED Past Medical History: Arrthythmia (Atrial fib), CAD, CHF, COPD, GERD, HTN, Hypercholesterolemia, IDDM, FL (Non-STEMI December 2019), Valvular disease and Other (Back pain, Headaches, Sleep apnea, IBS, Pancreatitis, Ulcers, Gastritis, Anemia, )
ED Past Surgical History: Cardiac (CABG, PTCA with stent), Cholecystectomy (January 2016), Orthopedic (Right wrist surgery), Tonsilectomy and Other (hernia repair, endovascular AAA with bilateral femoral endarterectomy and profundoplasty 07/2018)
Social History
Tobacco: Former smoker
Alcohol: None
Drug: None
Personal: Single
Living: alone
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
Family History
Family History: Hypertension
Review of Systems
<Kayla Higgins PA-C - Last Filed: 04/13/25 23:29>
Review of Systems
Allergies reviewed?: Yes
All Other Systems: ROS reviewed and negative except as documented in HPI and ROS
Phy Exam
<Kayla Higgins PA-C - Last Filed: 04/13/25 23:29>
Physical Exam
Physical Exam:
Vitals: Tachycardic on arrival, improved by my assessment.
General: Patient is chronically ill appearing, on 3L NC
Skin: Warm and dry, no rashes or lesions
Head: Normocephalic, atraumatic
Eyes: Sclera nonicteric. EOMs intact. No nystagmus.
Throat: Protecting airway
Neck: Normal ROM, no cervical spine tenderness, no meningismus. No reproducible chest wall tenderness.
Cardiac: Regular rate and rhythm.
Pulm: On 3L NC. Decreased breath sounds bilaterally with prolonged expiratory phase.
.
Abdomen: Abdomen soft. No abdominal tenderness.
Extremities: No evidence of cyanosis or edema
Neuro: AAOx3. Grossly intact
Psychiatric: Normal affect.
Scores
<Kayla Higgins PA-C - Last Filed: 04/13/25 23:29>
Heart Score for Chest Pain Patients
STEMI patient?: No
History: Moderately Suspicious
ECG: Nonspecific Repolarization
Age: >/= 65 years
Risk Factors: >/= 3 Risk Factors or History of CAD
Troponin: >/= 3 x Normal Limit
Heart Score for Chest Pain Patients: 8
Heart Score Risk: 72.7 % MACE over next 6 weeks
Course
<Kayla Higgins PA-C - Last Filed: 04/13/25 23:29>
Orders/Labs/Results
Orders:
Orders
04/13/25 Breakfast
Cholesterol Lowering
At Your Request: Limited Participation
Does patient need a safe tray?: No
Cholesterol Lowering: Sodium, 2 Gram
1800 vee/15 CHO Diabetic
04/13/25 10:54
Electrocardiogram (*1) Urgent
Reason for Study: Chest Pain
EKG- Treatment ONCE
04/13/25 10:55
Complete Blood Count/With Diff Urgent
Comprehensive Metabolic Panel Urgent
D-Dimer Urgent
Comment: ADD ON
Glycohemoglobin (HgbA1c) Urgent
NT-proBNP Urgent
PT/INR [Prothrombin Time] Urgent
Is patient on Coumadin/Warfarin?: No
Comment: [email or web address]
PTT Urgent
Troponin I Urgent
04/13/25 11:42
Add On- LAB Urgent
Tests Added?: d-dimer
CR Chest - 2 Views Urgent
Comment:
Reason For Exam: chest pain, SOB
04/13/25 13:55
Troponin I Urgent
04/13/25 13:56
Ipratropium/Albuterol Sulfate [Duoneb] 3 ml INH R NOW STA
04/13/25 14:00
Electrocardiogram (*1) Urgent
Reason for Study: Chest Pain
EKG- Treatment ONCE
04/13/25 15:49
Admit/Transfer Patient As Directed
Co-Sign Provider:
Level of Care: Inpatient admission
Assign to:: Telemetry
Physician / Group: htay
Diagnosis: CP
Reason for Telemetry: Chest Pain syndromes
Date to Stop Telemetry: 04/15/25
Time to Stop Telemetry: 11:00
Reason for Hospitalization: CP eval for ACS
Expected length of stay greater than two midnights?: Yes
ELOS- Estimated Length of Stay in days: 3
I certify the patient meets the requirements for IP care: Yes
PRN Pain Medication Management As Directed
May give lesser potent ordered pain med per pt: Yes
preference::
Protocol:: Medication orders for pain may be administered in a
manner that supports deferring to patient preference
when the pt is:
- Requesting an ordered lesser potent pain medication.
Least to most potent pain medications are defined
as: acetaminophen < NSAID < tramadol < opioids
(morphine, oxycodone, hydromorphone).
- Requesting a lesser dose of the same medication IF
ORDERED.
- Requesting a less intrusive route of administration
if both routes are prescribed by the provider (PO <
IV).
04/13/25 15:54
Code Status As Directed
Resuscitation Status: Do not resuscitate
Reached after discussion with pt or family/Healthcare POA: Yes
DNR Bracelet Application ONCE
04/13/25 16:49
Electrocardiogram (*1) Q6H
Reason for Study: Chest Pain
Comment: at admission and Q3H for total of 3, to be done with each troponin
Acetaminophen [Tylenol] 650 mg PO Q4HPRN PRN mild pain/fever
Albuterol [ProAIR HFA INHALER] 2 puff INH R Q6HPRN PRN SOB
Dextrose 50%-Water [Dextrose 50% Syringe] 12.5 grams IV [id number] PRN
Glucagon [GlucaGen] 1 mg IM PRN PRN
Insulin Aspart Corrective Low [Novolog Flexpen-Low Resistance] See Protocol SC AC
Ipratropium/Albuterol Sulfate [Duoneb] 3 ml INH R QIDPRN PRN SOB
Lorazepam [Ativan] 0.5 mg PO TIDPRN PRN sleep/anxiety
Magnesium Hydroxide [Milk of Magnesia] 30 ml PO HSPRN PRN constipation
dextromethorphan-guaifenesin [Mucinex DM] 1 tablet PO Q12H
fluticasone propionate 2 spray NASAL DAILYPRN PRN
04/13/25 16:49
CARDIOLOGY CONSULT Routine
Consulting Provider: Kris Rojo
Was physician already notified: Yes
Reason for consult: CO eval for ACS
Activity As Directed
Activity Level: With Assistance
Bedside Glucose Monitoring As Directed
Frequency: AC&HS
Additional Instructions:: Change to q6h if pt on TPN, tube feeding or not eating
INT (Intravenous Needle Therapy) As Directed
Comment: maintain peripheral IV access
Intake/ Output As Directed
Frequency: Per unit guidelines
Vital Signs As Directed
Frequency: q4h
Weight As Directed
Frequency: Daily
O2 Therapy [RESP] Routine
Nasal Cannula Liter Flow: 3 LPM
Titrate/Wean O2 to maintain O2 sat greater than (%): 92
DX Deep Vein Thrombosis Video Routine
04/13/25 18:00
Enoxaparin Sodium [Lovenox] 40 mg SC QPM
04/13/25 18:30
Budesonide [Pulmicort] 0.5 mg INH R BID@0830,1830
04/13/25 20:00
Carvedilol [Coreg] 6.25 mg PO BID
04/13/25 21:45
Troponin I Q3H
Comment: at admit & Q3H for 3 total including ED draws, obtain ECG with each level
04/13/25 22:00
Melatonin 3 mg PO HS
04/13/25 22:49
Electrocardiogram (*1) Q6H
Reason for Study: Chest Pain
Comment: at admission and Q3H for total of 3, to be done with each troponin
04/14/25 04:49
Electrocardiogram (*1) Q6H
Reason for Study: Chest Pain
Comment: at admission and Q3H for total of 3, to be done with each troponin
04/14/25 06:00
Complete Blood Count/No Diff IN AM
Comprehensive Metabolic Panel IN AM
Glycohemoglobin (HgbA1c) IN AM
04/14/25 08:00
Aspirin Chewable [Low Strength Aspirin] 81 mg PO DAILY
Atorvastatin [Lipitor] 80 mg PO DAILY
Azithromycin [Zithromax] 250 mg PO DAILY
Bupropion(24Hr)Extended Releas [WELLBUTRIN XL (24 hour extended release)] 300 mg PO DAILY
Clopidogrel Bisulfate [Plavix] 75 mg PO DAILY
Nitroglycerin [Nitro-Dur] 0.2 mg TRANSDERM DAILY
Pantoprazole [Protonix] 40 mg PO DAILY
Potassium Chloride [KCl] 20 meq PO DAILY
Prednisone [Deltasone] 10 mg PO DAILY
Sertraline HCl [Zoloft] 150 mg PO DAILY
Spironolactone [Aldactone] 12.5 mg PO DAILY
Tamsulosin [Flomax] 0.4 mg PO DAILY
04/15/25 11:00
DC Protocol for Telemetry ONCE
04/16/25 08:00
Furosemide [Lasix] 20 mg PO MoWeFr@0800
Abnormal Lab Results
04/13/25 04/13/25
10:55 13:55
RBC 4.11 L 10^6/uL
(4.70-6.10)
Hgb 11.7 L g/dL
(13.0-18.0)
Hct 37.9 L %
(39.0-52.0)
MCHC 30.9 L g/dL
(33.0-37.0)
Abs Immat Gran (auto) 0.1 H 10^3/uL
(0-0.05)
Absolute Neuts (auto) 8.3 H 10^3/uL
(1.4-6.5)
Absolute Lymphs (auto) 0.9 L 10^3/uL
(1.2-3.4)
Absolute Monos (auto) 1.0 H 10^3/uL
(0.1-0.6)
Immature Gran % 0.8 H %
(0-0.5)
Neutrophils % 77.1 H %
(42.2-75.2)
Lymphocytes % 8.3 L %
(20.5-51.1)
Monocytes % 9.6 H %
(1.7-9.3)
D-Dimer 0.56 H ug/mlFEU
(0.00-0.50)
Chloride 97 L mmol/L
(98-107)
Carbon Dioxide 37 H mmol/L
(22-30)
Glucose 356 H mg/dl
(70-99)
Troponin I 0.045 H* ng/ml 0.644 H* D ng/ml
04/13/25 10:55
04/13/25 10:55
Vital Signs
Initial and Last Documented VS:
Initial Vital Signs
Temp Pulse Resp BP Pulse Ox
98.4 F 110 16 130/84 98
04/13/25 10:54 04/13/25 10:54 04/13/25 10:54 04/13/25 10:54 04/13/25 10:54
Last Documented Vital Signs
Temp Pulse Resp BP Pulse Ox
98.4 F 88 16 150/84 97
04/13/25 19:20 04/13/25 19:45 04/13/25 19:45 04/13/25 19:20 04/13/25 19:45
<Abdirizak Restrepo, DO - Last Filed: 04/13/25 14:26>
Orders/Labs/Results
Orders:
Orders
04/13/25 Breakfast
Cholesterol Lowering
At Your Request: Limited Participation
Does patient need a safe tray?: No
Cholesterol Lowering: Sodium, 2 Gram
1800 vee/15 CHO Diabetic
04/13/25 10:54
Electrocardiogram (*1) Urgent
Reason for Study: Chest Pain
EKG- Treatment ONCE
04/13/25 10:55
Complete Blood Count/With Diff Urgent
Comprehensive Metabolic Panel Urgent
D-Dimer Urgent
Comment: ADD ON
Glycohemoglobin (HgbA1c) Urgent
NT-proBNP Urgent
PT/INR [Prothrombin Time] Urgent
Is patient on Coumadin/Warfarin?: No
Comment: [email or web address]
PTT Urgent
Troponin I Urgent
04/13/25 11:42
Add On- LAB Urgent
Tests Added?: d-dimer
CR Chest - 2 Views Urgent
Comment:
Reason For Exam: chest pain, SOB
04/13/25 13:55
Troponin I Urgent
04/13/25 13:56
Ipratropium/Albuterol Sulfate [Duoneb] 3 ml INH R NOW STA
04/13/25 14:00
Electrocardiogram (*1) Urgent
Reason for Study: Chest Pain
EKG- Treatment ONCE
04/13/25 15:49
Admit/Transfer Patient As Directed
Co-Sign Provider:
Level of Care: Inpatient admission
Assign to:: Telemetry
Physician / Group: htay
Diagnosis: CP
Reason for Telemetry: Chest Pain syndromes
Date to Stop Telemetry: 04/15/25
Time to Stop Telemetry: 11:00
Reason for Hospitalization: CP eval for ACS
Expected length of stay greater than two midnights?: Yes
ELOS- Estimated Length of Stay in days: 3
I certify the patient meets the requirements for IP care: Yes
PRN Pain Medication Management As Directed
May give lesser potent ordered pain med per pt: Yes
preference::
Protocol:: Medication orders for pain may be administered in a
manner that supports deferring to patient preference
when the pt is:
- Requesting an ordered lesser potent pain medication.
Least to most potent pain medications are defined
as: acetaminophen < NSAID < tramadol < opioids
(morphine, oxycodone, hydromorphone).
- Requesting a lesser dose of the same medication IF
ORDERED.
- Requesting a less intrusive route of administration
if both routes are prescribed by the provider (PO <
IV).
04/13/25 15:54
Code Status As Directed
Resuscitation Status: Do not resuscitate
Reached after discussion with pt or family/Healthcare POA: Yes
DNR Bracelet Application ONCE
04/13/25 16:49
Electrocardiogram (*1) Q6H
Reason for Study: Chest Pain
Comment: at admission and Q3H for total of 3, to be done with each troponin
Acetaminophen [Tylenol] 650 mg PO Q4HPRN PRN mild pain/fever
Albuterol [ProAIR HFA INHALER] 2 puff INH R Q6HPRN PRN SOB
Dextrose 50%-Water [Dextrose 50% Syringe] 12.5 grams IV [id number] PRN
Glucagon [GlucaGen] 1 mg IM PRN PRN
Insulin Aspart Corrective Low [Novolog Flexpen-Low Resistance] See Protocol SC AC
Ipratropium/Albuterol Sulfate [Duoneb] 3 ml INH R QIDPRN PRN SOB
Lorazepam [Ativan] 0.5 mg PO TIDPRN PRN sleep/anxiety
Magnesium Hydroxide [Milk of Magnesia] 30 ml PO HSPRN PRN constipation
dextromethorphan-guaifenesin [Mucinex DM] 1 tablet PO Q12H
fluticasone propionate 2 spray NASAL DAILYPRN PRN
04/13/25 16:49
CARDIOLOGY CONSULT Routine
Consulting Provider: Kris Rojo
Was physician already notified: Yes
Reason for consult: CO eval for ACS
Activity As Directed
Activity Level: With Assistance
Bedside Glucose Monitoring As Directed
Frequency: AC&HS
Additional Instructions:: Change to q6h if pt on TPN, tube feeding or not eating
INT (Intravenous Needle Therapy) As Directed
Comment: maintain peripheral IV access
Intake/ Output As Directed
Frequency: Per unit guidelines
Vital Signs As Directed
Frequency: q4h
Weight As Directed
Frequency: Daily
O2 Therapy [RESP] Routine
Nasal Cannula Liter Flow: 3 LPM
Titrate/Wean O2 to maintain O2 sat greater than (%): 92
DX Deep Vein Thrombosis Video Routine
04/13/25 18:00
Enoxaparin Sodium [Lovenox] 40 mg SC QPM
04/13/25 18:30
Budesonide [Pulmicort] 0.5 mg INH R BID@0830,1830
04/13/25 20:00
Carvedilol [Coreg] 6.25 mg PO BID
04/13/25 21:45
Troponin I Q3H
Comment: at admit & Q3H for 3 total including ED draws, obtain ECG with each level
04/13/25 22:00
Melatonin 3 mg PO HS
04/13/25 22:49
Electrocardiogram (*1) Q6H
Reason for Study: Chest Pain
Comment: at admission and Q3H for total of 3, to be done with each troponin
04/14/25 04:49
Electrocardiogram (*1) Q6H
Reason for Study: Chest Pain
Comment: at admission and Q3H for total of 3, to be done with each troponin
04/14/25 06:00
Complete Blood Count/No Diff IN AM
Comprehensive Metabolic Panel IN AM
Glycohemoglobin (HgbA1c) IN AM
04/14/25 08:00
Aspirin Chewable [Low Strength Aspirin] 81 mg PO DAILY
Atorvastatin [Lipitor] 80 mg PO DAILY
Azithromycin [Zithromax] 250 mg PO DAILY
Bupropion(24Hr)Extended Releas [WELLBUTRIN XL (24 hour extended release)] 300 mg PO DAILY
Clopidogrel Bisulfate [Plavix] 75 mg PO DAILY
Nitroglycerin [Nitro-Dur] 0.2 mg TRANSDERM DAILY
Pantoprazole [Protonix] 40 mg PO DAILY
Potassium Chloride [KCl] 20 meq PO DAILY
Prednisone [Deltasone] 10 mg PO DAILY
Sertraline HCl [Zoloft] 150 mg PO DAILY
Spironolactone [Aldactone] 12.5 mg PO DAILY
Tamsulosin [Flomax] 0.4 mg PO DAILY
04/15/25 11:00
DC Protocol for Telemetry ONCE
04/16/25 08:00
Furosemide [Lasix] 20 mg PO MoWeFr@0800
Abnormal Lab Results
04/13/25 04/13/25
10:55 13:55
RBC 4.11 L 10^6/uL
(4.70-6.10)
Hgb 11.7 L g/dL
(13.0-18.0)
Hct 37.9 L %
(39.0-52.0)
MCHC 30.9 L g/dL
(33.0-37.0)
Abs Immat Gran (auto) 0.1 H 10^3/uL
(0-0.05)
Absolute Neuts (auto) 8.3 H 10^3/uL
(1.4-6.5)
Absolute Lymphs (auto) 0.9 L 10^3/uL
(1.2-3.4)
Absolute Monos (auto) 1.0 H 10^3/uL
(0.1-0.6)
Immature Gran % 0.8 H %
(0-0.5)
Neutrophils % 77.1 H %
(42.2-75.2)
Lymphocytes % 8.3 L %
(20.5-51.1)
Monocytes % 9.6 H %
(1.7-9.3)
D-Dimer 0.56 H ug/mlFEU
(0.00-0.50)
Chloride 97 L mmol/L
(98-107)
Carbon Dioxide 37 H mmol/L
(22-30)
Glucose 356 H mg/dl
(70-99)
Troponin I 0.045 H* ng/ml 0.644 H* D ng/ml
04/13/25 10:55
04/13/25 10:55
Vital Signs
Initial and Last Documented VS:
Initial Vital Signs
Temp Pulse Resp BP Pulse Ox
98.4 F 110 16 130/84 98
04/13/25 10:54 04/13/25 10:54 04/13/25 10:54 04/13/25 10:54 04/13/25 10:54
Last Documented Vital Signs
Temp Pulse Resp BP Pulse Ox
98.4 F 88 16 150/84 97
04/13/25 19:20 04/13/25 19:45 04/13/25 19:45 04/13/25 19:20 04/13/25 19:45
<Kayla Higgins PA-C - Last Filed: 04/13/25 23:29>
MDM/Problems Addressed
Differential Diagnosis Includes:
Not limited to: ACS, PE, acute CHF, COPD exacerbation, pneunonia, muscle strain, etc
MDM/Problems Addressed:
70-year-old male with significant cardiac history presented with chest pain that resolved after a sublingual nitroglycerin. He experienced associated shortness of breath but no clear exertional or pleuritic component. EKG on arrival showed sinus
tachycardia w/ frequent PVCs and nonspecific ST changes relatively unchanged from prior. He is chest pain free and stable by my evaluation.He did receive 1sl nitro and 324 ASA en route.
Labs including CBC and CMP reviewed. D-dimer age adjusted to normal. Initial troponin was mildly elevated to 0.045 - appears close to baseline. Will plan to trend troponin and continue to monitor patient.
Update: Repeat troponin significantly elevated to 0.644; A duoneb was given with improvement in dyspnea. However given cardiac hx and significant delta troponin - concern for unstable angina/ NSTEMI. Patient will require admission to hospital for
further troponin trending and evaluation. Considered heparin gtt however will def to cardiology for recommendation. Patient accepted to hospitalist service in stable condition. Cardiology aware.
Chronic conditions affecting care:
CAD, HTN, COPD
Acute Exacerbation and/or Progression of Chronic Illness:
NSTEMI w/ known CAD
<Kayla Higgins PA-C - Last Filed: 04/13/25 23:29>
*Radiology
Radiology exam reviewed: preliminary read by ED provider (CXR reviewed by me - no acute changed) and radiology read reviewed
*Pulse Oximetry
SaO2: 98
Nasal Cannula flow liters per minute: 3
Patient hypoxic: no
*EKG
Interpreted by ED Provider?: Yes
EKG Intrepretation Date: 04/13/25
Interpretation: abnormal
Heart Rate: 110
Rate: tachycardiac
Rhythm: sinus and PVC's
Ischemia: non-specific ST changes
*Radar Engineer Interpretation
Rate: normal
Interpretation: normal
Heart Rate: 92
Rhythm: sinus
*Critical Care Note
Total Time (30-74mins, 75-104mins- exclusive of procedures): Not Applicable
Data Reviewed
Review of Other/Old Records Reveals: Operative Reports (Cardiac cath 01/04/20 - multivessel CAD )
<Kayla Higgins PA-C - Last Filed: 04/13/25 23:29>
Patient Management
Discussion with other providers: Hospitalist and Warehouse Helper (Case discussed with cardiology)
Escalation/DeEscalation of care consider admission/obs:
Admit for further troponin trending/ monitoring
ED Attending Note
<Kayla Higgins PA-C - Last Filed: 04/13/25 23:29>
-
Portions of this chart may have been created with voice recognition software.� Occasional wrong word or��sound alike� substitutions may have occurred due to the inherent limitations of voice recognition software.
<Abdirizak Restrepo DO - Last Filed: 04/13/25 14:26>
ED Attending Note
Patient seen and examined by attending physician: Yes
I performed the substantive portion of visit, reviewed & personally made and approve the management plan that is documented in note by myself or RAMON.: Yes
ED Attending Note:
I evaluated the patient at bedside. The patient's troponin is 0.045 which is similar to 02/23/25. EKG shows sinus tachycardia with right bundle branch block and frequent PVCs, diffuse ST abnormality but not significant change from 02/23/25
The patient denies chest pain currently to me but just received a DuoNeb. He states he has been receiving DuoNebs at [facility]
Discharge Plan
Departure
Patient Disposition: Admit
Date of Disposition: 04/13/25
Time of Disposition: 15:13
Presentation/result/management discussed w/ accepting MD/DO: Hospitalist
Discharge Problem:
Non-ST elevation FL (NSTEMI), CAD (coronary artery disease)
Interventions
Interventions:
*Risk Screen - Suicide Last Done: 04/13/25 16:30
*General Assessment Last Done: 04/13/25 10:58
*Neglect/Abuse Screening Last Done: 04/13/25 10:58
*ED- Fall Risk Assessment Last Done: 04/13/25 10:54
*ED COVID-19 Vaccine History Last Done: 04/13/25 16:30
*Nursing Disposition Last Done: 04/13/25 16:53
ED- Cardiac Assessment Last Done: 04/13/25 10:58
Discharge Date and Time
Discharge Date/Time: 04/13/25 16:54
[2025-04-13 11:26] LABS: ALT (SGPT) 28 U/L (0-50); AST (SGOT) 19 U/L (17-59); Albumin 4.1 g/dl (3.5-5.0); Alkaline Phosphatase 92 U/L (38-126); Blood Urea Nitrogen 15 mg/dl (9-20); Calcium 9.7 mg/dl (8.4-10.2); Carbon Dioxide 37 mmol/L (22-30); Chloride 97 mmol/L (98-107); Estimated Creatinine Clearance 90 ml/min; Glucose 356 mg/dl (70-99); Potassium 4.6 mmol/L (3.5-5.1); Sodium 138 mmol/L (135-145); Total Bilirubin 0.4 mg/dl (0.2-1.3); Total Protein 6.7 g/dl (6.3-8.2); eGFR > 60.00
[2025-04-13 11:36] LABS: NT-proBNP 464 pg/ml; Troponin I 0.045 ng/ml
[2025-04-13 12:01] LABS: D-Dimer 0.56 ug/mlFEU (0.00-0.50)
[2025-04-13] MEDS: DUONEB 3 ML INH (14:03)
[2025-04-13 15:03] LABS: Troponin I 0.644 ng/ml
--- NOTE | 2025-04-13 15:37 | HPS.HSE ---
Family Physician
-
Family Physician: Renan Pedroza, DO
Chief Complaint
-
Lt sided CP / chest disconfort
History of Present Illness
HPI
70M Res of [place] with comlex card HX, CAD, CABG, Prx AF, AAA s/p repair, HX advanced COPD on chronic steroid and chronic 3 L NC O2 , IDDM, Orthostasis seen at ER :
insulin-dependent diabetes who presents to the emergency department via EMS
- chest discomfor
- onset of chest pain this morning around 1:30 AM, described as constant and building up to a crescendo until improvement following medication administration approximately 30 to 45 minutes before EMS arrival.
- localized to his left chest with radiation into his left arm and described as a 'aching '.
- feeling more short of breath than his baseline today however denies any cough or fever.
- have a nitro patch which he wears for chronic chest pain however this was removed and patient was given 1 sublingual nitroglycerin and reports improvement in symptoms following this.
Medical History
Past Medical History
Past Medical History: Reports Other
Additional Past Medical History:
Chronic respiratory failure (3 L)
Severe COPD
HFrecEF/ischemic cardiomyopathy
CAD s/p CABG
AAA s/p EVAR
Paroxysmal AF/AFL s/p CTI ablation
Chronic RBBB
Orthostatic hypotension
IDDM
History of PUD with microperforation
History of alcohol and tobacco use
Past Surgical History: Reports Other
Additional Past Surgical History:
CABG (1999)
CTI ablation (2018)
Cholecystectomy
Tonsillectomy
EVAR (2017)
Social History
Tobacco: Former Smoker
Alcohol: Former
Drug: None
Family History
Family History: Not pertinent
Allergies / Home Medications
Allergies reflects when Allergies were last updated in [employer].
Home Medications with original date entered in [employer]
Allergy/Medication List:
Allergies
Allergy/AdvReac Type Severity Reaction Status Date / Time
lisinopril Allergy throat Verified 02/23/25 06:34
closes
Home Medications
albuterol sulfate 90 mcg/actuation aerosol inhaler 2 puff inhalation R Q6HPRN PRN SOB 07/02/23
atorvastatin 80 mg tablet 80 mg PO DAILY High cholesterol 07/02/23
ipratropium 0.5 mg-albuterol 3 mg (2.5 mg base)/3 mL nebulization soln 3 ml inhalation R QIDPRN PRN SOB 07/02/23
pantoprazole 40 mg tablet,delayed release 40 mg PO DAILY Gastrointestinal issue 07/02/23
tamsulosin 0.4 mg capsule 0.4 mg PO DAILY BPH 07/02/23
budesonide 0.5 mg/2 mL suspension for nebulization 0.5 mg (2 mL) inhalation R BID copd #60 mL 07/06/23
aspirin 81 mg chewable tablet (Children's Aspirin) 81 mg PO DAILY #1 tab 09/10/23
azithromycin 250 mg tablet 250 mg PO DAILY Infection #0 tabs 09/10/23
prednisone 10 mg tablet 10 mg PO DAILY Anti-inflammatory #0 tabs 09/10/23
ascorbic acid (vitamin C) 500 mg tablet (Vitamin C) 500 mg PO DAILY 12/05/24
bupropion HCl 300 mg 24 hr tablet, extended release 300 mg PO DAILY 12/05/24
nitroglycerin 0.4 mg sublingual tablet (Nitrostat) 0.4 mg sublingual [id number] PRN chest pain 12/05/24
potassium chloride 20 mEq tablet,extended release(part/cryst) 20 meq PO DAILY 12/05/24
sertraline 50 mg tablet 150 mg PO DAILY 12/05/24
midodrine 10 mg tablet 10 mg PO TID #0 tabs 12/06/24
acetaminophen 325 mg tablet 650 mg PO Q4HPRN PRN mild pain/fever 12/08/24
bisacodyl 10 mg rectal suppository 10 mg AR [id number] PRN if mom ineffective 12/08/24
insulin glargine 100 unit/mL subcutaneous solution (Lantus U-100 Insulin) 3 unit SC HS 12/08/24
lorazepam 0.5 mg tablet 0.5 mg PO TIDPRN PRN sleep/anxiety 12/08/24
magnesium hydroxide 400 mg/5 mL oral suspension (Milk of Magnesia) 30 ml PO HSPRN PRN constipation 12/08/24
carvedilol 3.125 mg tablet 6.25 mg PO BID 02/23/25
dextromethorphan-guaifenesin 30 mg-600 mg tablet extended [id number] hr (Mucinex DM) 1 tab PO Q12H 02/23/25
fluticasone propionate 50 mcg/actuation nasal spray,suspension 2 spray intranasal DAILYPRN PRN allergies 02/23/25
furosemide 40 mg tablet 20 mg PO MOWEFR 02/23/25
melatonin 3 mg tablet 3 mg PO HS 02/23/25
Review of Systems
-
Constitutional: Reports No Symptoms
EENT: Reports No Symptoms
Respiratory: Reports Trouble Breathing
Cardiac: Reports See HPI and Chest Pain
Abdomen/GI: Reports No Symptoms
: Reports No Symptoms
Musculoskeletal: Reports No Symptoms
Skin: Reports No Symptoms
Neurological: Reports No Symptoms
Endocrine: Reports No Symptoms
Hematologic/Lymphatic: Reports No Symptoms
Psych: Reports No Symptoms
Physical Exam
Vital Signs
Vital Signs
Temp Pulse Resp BP Pulse Ox
98.4 F 82 18 141/89 98
04/13/25 10:54 04/13/25 15:00 04/13/25 15:02 04/13/25 15:00 04/13/25 15:00
Physical Exam
General: Well Developed, No Apparent Distress and Appears Chronically Ill
HEENT: NormoCephalic, Anicteric, Moist mucous membranes, Atraumatic, PERRLA and Oxygen
Respiratory: Wheezes, Rhonchi, Non Labored Respirations and Decreased Breath Sounds; No Rales or Accessory Resp Muscle Use
Cardiac: S1/S2, Regular Rhythm, Peripheral Edema (1+) and Other (Palpable pulses); No Murmur, Rub or Gallop
GI: Soft, Non Tender, Non Distended and Normal Bowel Sounds
Musculoskeletal: No Clubbing, No Cyanosis and No Edema
Skin: Warm and Dry; No Rash
Neuro: AO x 3, Nonfocal/grossly intact and Cranial Nerves Intact; No Tremors
Psych: Calm
Laboratory Results
-
04/13/25 10:55
04/13/25 10:55
Laboratory Results
PT 12.8 Sec (11.4-14.6) 04/13/25 10:55
INR 0.93 04/13/25 10:55
APTT 26.3 Sec (23.4-35.0) 04/13/25 10:55
Total Bilirubin 0.4 mg/dl (0.2-1.3) 04/13/25 10:55
AST 19 U/L (17-59) 04/13/25 10:55
ALT 28 U/L (0-50) 04/13/25 10:55
Alkaline Phosphatase 92 U/L (38-126) 04/13/25 10:55
Troponin I 0.644 ng/ml H* D 04/13/25 13:55
Impression/Plan
-
Vital Signs
Temp Pulse Resp BP Pulse Ox
98.4 F 82 18 141/89 98
04/13/25 10:54 04/13/25 15:00 04/13/25 15:02 04/13/25 15:00 04/13/25 15:00
Laboratory Tests
02/26/25 04/13/25 04/13/25
05:45 10:55 13:55
WBC 10.8
Hgb 11.0 L 11.7 L
INR 0.93
Creatinine 0.7
eGFR > 60.00
Troponin I 0.045 H* 0.644 H* D
EKG
SINUS RHYTHM WITH PREMATURE SUPRAVENTRICULAR COMPLEXES
RIGHT BUNDLE BRANCH BLOCK
T WAVE ABNORMALITY, CONSIDER INFERIOR ISCHEMIA
ABNORMAL ECG
WHEN COMPARED WITH ECG OF 13-APR-2025 10:57,
PREMATURE VENTRICULAR COMPLEXES ARE NO LONGER PRESENT
PREMATURE SUPRAVENTRICULAR COMPLEXES ARE NOW PRESENT
T WAVE INVERSION NOW EVIDENT IN INFERIOR LEADS
T WAVE INVERSION MORE EVIDENT IN ANTEROLATERAL LEADS
CXR: Increased subsegmental atelectasis/scarring within the right middle lobe as above. No other significant change from prior.
Echo 02/23/2025: EF 50%, mild to moderate concentric LVH, no significant valvular disease
Last hospitalist admission: 02/23/25 - 02/24/25
Principal Discharge diagnosis :
Angina
Elevated troponin
Type II NSTEMI
HFrecEF
Orthostasis
ASSESSMENT & PLAN
Acute left sided CP - CP free at ER
CAD HX s/p CABG 1998
HX NSTEMI with peak trop 0.4. cath showed progression of [place] CAD however patient bypass grafts 12/2019
Retrospectively , he was manage medically as patient historically was not felt to have good options for revascularization of his significant coronary disease prior Card consultation
HX recovered ischemic cardiomyopathy, EF 50% by echo 02/2025
- Initial trop 0.045 which is somewhat close to baseline however repeat elevated to 0.644.
- on ELECTROPHYSIOLOGY SCIENTIST nitro patch to be cont.
- was given SL NTG and ASA en route
- Trend TPNI
- [facility] card consult - defer Heparin gtt to to Card
Suboptimal HTN control
- to consider escalade carvedilol - await Card input
PMHX Intermittent sinus tachycardia noted ? albuterol realated
Paroxysmal atrial flutter s/p ablation in 2017
Paroxysmal atrial fibrillation diagnosed during 12/2019 admission without known recurrence
Chronic right bundle-branch block
Home regimen includes carvedilol; not on anticoagulation due to low burden of arrhythmia and patient preference
- Not chronically OAC due to patient's choice and low burden of atrial arrhythmia
HX PVD , s/p endovascular AAA repair and bilateral femoral artery endarterectomy and profundoplasty 07/2018
Chronic hypoxemic and hypercapnic respiratory failure (3 L O2)
HX home O2 3 L dependent COPD
Chronic steroid
-Last PFTs with FEV1 percent 27% of expected, and DLCO 21% predicted
-Home regimen includes prednisone, azithromycin, budesonide inhaler, DuoNebs
-Utilizes 3 L of supplemental oxygen at baseline
-Stable on baseline O2, does have some wheezes
-Continue as needed DuoNeb, low threshold to increase steroid for short course
IDDM - No known microvascular dz though likely related to CAD/PAD
-Continue home Lantus and start ISS with Accu-Cheks
- BG goal 140-180
Orthostatic hypotension HX
- on ELECTROPHYSIOLOGY SCIENTIST midodrine 5 mg 3 times daily
- monitor orthostatics and BP while here
HX peptic ulcer disease
DVT Px: SQH
Code: DNR
IP TLM
--- NOTE | 2025-04-13 16:06 | CON.CAR ---
Addendum entered and electronically signed by Kris Rojo MD 04/13/25 16:38:
I saw and examined the patient.
The RUG CLIPPER or PA's note was reviewed and I agree with the note.
Comment: General: Well developed, well nourished in NAD.
Neck: Supple, no JVD, HJR, carotids +2 B/L, no bruits bilaterally.
Heart: Non displaced PMI, RRR, no murmurs, No S3, S4, no rubs.
Lungs: Scattered rhonchi and wheezes throughout
Extremities: No clubbing, cyanosis or edema bilaterally.
Neuro: Grossly nonfocal, awake, alert and oriented x3.
Vinayak has history of chronic diastolic CHF, recovered ischemic cardiomyopathy, nonsustained V. tach, orthostatic hypotension, PAF and flutter, PVD, diabetes, hypertension, hyperlipidemia, COPD on chronic oxygen. He had been admitted in February 2025
with chest pain and ruled in for non-STEMI. He is not felt to be a catheterization candidate and thought not to be revascularizable percutaneously or with surgery. He has been treated medically. He was doing well and was seen in our office a week
ago without symptoms. He presents with chest discomfort woke him from sleep at night. Troponin went up to 0.644 and cardiology has been consulted. He denies chest pain at present.
Management of antianginals has been complicated by hypotension. Will increase nitroglycerin patch to 0.2 mg. Will also add Ranexa 500 mg p.o. twice daily. Discussed with hospitalist and would not start heparin.
Original Note:
Consultation
Consultation Request
Date/Time Consultation Requested: 04/13/2025
Date/Time Consultation Performed: 04/13/2025
Requesting Provider: Dr. Lowe
Performing Provider: Henrietta Hope PA-C for Dr. Rojo
Reason for Consultation: Chest pain
Medical History
-
Chief Complaint: CP
History of Present Illness:
HPI: Gonzalo is a 70-year-old male with past medical history of chronic HFpEF, CAD, recovered ischemic cardiac apathy, NSVT, orthostatic hypotension, paroxysmal atrial fibrillation and flutter, PVD, DM 2, hypertension, hyperlipidemia, RBBB, and COPD.
Presented to [facility] for evaluation of chest discomfort which awoke him from sleep last night. Describes it as a left-sided chest pain with radiation into his L arm. He was able to fall back asleep, but when he woke up again later in the morning he
again had the pain. Pain persisted despite taking Tums and doing a breathing treatment, prompting ER evaluation. In ER, he was found to have elevated troponin, initially at 0.045, up to 0.644 on repeat. He states pain has slowly resolved and now
he feels 'the after shock'. Denies any pain currently. Also does note some increased shortness of breath associated with chest discomfort. In ER, he was given SL nitro and states this may have helped somewhat, but did not completely resolve his
pain. He has known coronary disease which has been medically managed as he was previously not felt to have good revascularization options. He is on Nitropatch and Coreg as outpatient. Recently seen in the cardiology office 1 week ago and was
placed on higher dose carvedilol due to intermittent chest discomfort. He was admitted for further workup and evaluation given chest pain with elevated troponin. Cardiology consulted for evaluation.
PM:
Chronic HFpEF
CAD
s/p CABG 1998 at [facility] with GAR to LAD and free JONO Y graft from GAR to OM
cath showed progression of [place] CAD however patient bypass grafts 12/2019
History of recovered ischemic cardiomyopathy, EF 50 to 55% by echo 11/2024
h/o NSVT
orthostatic hypotension
Sinus tachycardia
Paroxysmal atrial flutter
s/p ablation in 2017
Paroxysmal atrial fibrillation
diagnosed during 12/2019 admission without known recurrence
Not chronically anticoagulated due to patient's choice and low burden of atrial arrhythmia
PVD
h/o endovascular AAA repair and bilateral femoral artery endarterectomy and profundoplasty 07/2018
Type 2 diabetes
Hypertension
Hypercholesterolemia
Chronic right bundle-branch block
COPD on chronic supp O2, 3L
History of duodenal ulcer with microperforation in 2018
h/o daily ETOH use now abstinent
Former smoker
DNR
Past Medical History
Past Medical History: Other (in HPI)
Past Surgical History: Cardiac (CABG 1998, atrial flutter ablation 2017), Cholecystectomy, Tonsilectomy and Other (endovascular AAA repair 2016)
Social History
Tobacco: Former Smoker
Alcohol: None (he says he stopped drinking)
Drug: None
Personal: Single
Living: [facility]sp
Family History
Family History: CAD and Cancer (lung cancer)
Allergies / Home Medications
Allergy/AdvReac Type Severity Reaction Status Date / Time
lisinopril Allergy throat Verified 02/23/25 06:34
closes
�Medication �Instructions �Recorded �Confirmed �Type
albuterol sulfate 90 mcg/actuation 2 puff inhalation R Q6HPRN PRN SOB 07/02/23 04/13/25 History
aerosol inhaler
atorvastatin 80 mg tablet 80 mg PO DAILY High cholesterol 07/02/23 04/13/25 History
ipratropium 0.5 mg-albuterol 3 mg 3 ml inhalation R QIDPRN PRN SOB 07/02/23 04/13/25 History
(2.5 mg base)/3 mL nebulization
soln
pantoprazole 40 mg tablet,delayed 40 mg PO DAILY Gastrointestinal 07/02/23 04/13/25 History
release issue
tamsulosin 0.4 mg capsule 0.4 mg PO DAILY BPH 07/02/23 04/13/25 History
aspirin 81 mg chewable tablet 81 mg PO DAILY #1 tab 09/10/23 04/13/25 Rx
(Children's Aspirin)
azithromycin 250 mg tablet 250 mg PO DAILY Infection #0 tabs 09/10/23 04/13/25 Rx
prednisone 10 mg tablet 10 mg PO DAILY Anti-inflammatory 09/10/23 04/13/25 Rx
#0 tabs
ascorbic acid (vitamin C) 500 mg 500 mg PO DAILY 12/05/24 04/13/25 History
tablet (Vitamin C)
bupropion HCl 300 mg 24 hr tablet, 300 mg PO DAILY 12/05/24 04/13/25 History
extended release
potassium chloride 20 mEq 20 meq PO DAILY 12/05/24 04/13/25 History
tablet,extended release(part/cryst)
acetaminophen 325 mg tablet 650 mg PO Q4HPRN PRN mild 12/08/24 04/13/25 History
pain/fever
bisacodyl 10 mg rectal suppository 10 mg DC DAILYPRN PRN if mom 12/08/24 04/13/25 History
ineffective
insulin glargine 100 unit/mL 3 unit SC HS 12/08/24 04/13/25 History
subcutaneous solution (Lantus
U-100 Insulin)
lorazepam 0.5 mg tablet 0.5 mg PO TIDPRN PRN sleep/anxiety 12/08/24 04/13/25 History
magnesium hydroxide 400 mg/5 mL 30 ml PO HSPRN PRN constipation 12/08/24 04/13/25 History
oral suspension (Milk of Magnesia)
dextromethorphan-guaifenesin 30 1 tab PO Q12H 02/23/25 04/13/25 History
mg-600 mg tablet extended
[id number] hr (Mucinex DM)
fluticasone propionate 50 2 spray intranasal DAILYPRN PRN 02/23/25 04/13/25 History
mcg/actuation nasal allergies
spray,suspension
melatonin 3 mg tablet 3 mg PO HS 02/23/25 04/13/25 History
clopidogrel 75 mg tablet (Plavix) 75 mg PO DAILY #30 tabs 02/24/25 04/13/25 Rx
nitroglycerin 0.1 mg/hr 0.1 mg transdermal DAILY Heart 02/24/25 04/13/25 Rx
transdermal 24 hour patch disease/condition 1 month #30 ea
budesonide 0.5 mg/2 mL suspension 0.5 mg inhalation R BID@0830,1830 04/13/25 04/13/25 History
for nebulization copd
carvedilol 6.25 mg tablet 6.25 mg PO BID 04/13/25 04/13/25 History
furosemide 20 mg tablet 20 mg PO MOWEFR 04/13/25 04/13/25 History
sertraline 150 mg capsule 150 mg PO DAILY 04/13/25 04/13/25 History
spironolactone 25 mg tablet 12.5 mg PO DAILY 04/13/25 04/13/25 History
Review of Systems
-
History Source: Patient
All other systems: Negative unless noted
Physical Exam
Vital Signs
Temp Pulse Resp BP Pulse Ox
98.4 F 82 18 141/89 98
04/13/25 10:54 04/13/25 15:00 04/13/25 15:02 04/13/25 15:00 04/13/25 15:00
Lab Results
04/13/25 10:55
04/13/25 10:55
Troponin I 0.644 ng/ml H* D 04/13/25 13:55
Xob-I-Vaodasvsvqs Pept 464 pg/ml 04/13/25 10:55
Physical Exam
General: Well Developed, Well Nourished and No Apparent Distress
HEENT: Normocephalic, Anicteric and Moist Mucous Membranes
Respiratory: Clear and Non Labored Respirations
Cardiac: Regular Rhythm
Musculoskeletal: No Clubbing, No Cyanosis and No Edema
Skin: Warm and Dry
Neuro: AO x 3 and Nonfocal/Grossly Intact
Psych: Calm
Impression / Plan
-
PCP: Dr. Pedroza
Cardiology: Dr. MILA Woo
Impression:
Presented with chest pain
Elevated troponin
Chronic HFpEF
CAD
s/p CABG 1998 at [facility] with GAR to LAD and free JONO Y graft from GAR to
cath showed progression of [place] CAD however patient bypass grafts 12/2019
History of recovered ischemic cardiomyopathy, EF 50 to 55% by echo 11/2024
h/o NSVT
orthostatic hypotension
Sinus tachycardia
Paroxysmal atrial flutter
s/p ablation in 2018
Paroxysmal atrial fibrillation
diagnosed during 12/2019 admission without known recurrence
Not chronically anticoagulated due to patient's choice and low burden of atrial arrhythmia
PVD
h/o endovascular AAA repair and bilateral femoral artery endarterectomy and profundoplasty 07/2018
Type 2 diabetes
Hypertension
Hypercholesterolemia
Chronic right bundle-branch block
COPD on chronic supp O2, 3L
History of duodenal ulcer with microperforation in 2017
h/o daily ETOH use now abstinent
Former smoker
DNR
ECHO 09/06/23: Definity used, EF 45 to 50%, global hypokinesis, stage I diastolic dysfunction, mild MR, trace TR, PAP 25 to 30 mmHg
Echo 12/11/2024: EF 50 to 55%, no regional wall motion abnormalities, mild concentric LVH, no significant valvular disease
Echo 02/23/2025: EF 50%, mild to moderate concentric LVH, no significant valvular disease
Plan:
-Presented with chest pain which awoke him from sleep. Persisted throughout the morning despite breathing treatment, Tums, and usual cardiac medications.
-Slowly chest pain resolved in ER. Reports he is pain-free now.
-Elevated troponin noted, up to 0.644. Continue to trend to peak.
-EKG reviewed, sinus rhythm with RBBB. No acute ischemic changes noted.
-He has known coronary artery disease which is being medically managed. Previously not felt to have good revascularization options.
-Continue Coreg. Dose recently increased to 6.25 mg twice daily.
-Will continue Nitropatch, but will increase dose to 0.2 mg. Could consider addition of Ranexa if he continues w/ CP or if hypotension noted.
-BP stable, however has history of orthostatic hypotension and this is limited prior up titration of medical therapy. Follow closely.
-As he is pain-free with no plans for intervention currently, no need for heparin at this time.
-Recent echo 02/2025 with preserved EF and no significant valvular disease as noted above. No need to repeat.
-Does note some increased SOB. Appears euvolemic. Continue Lasix 20 mg MWF. Continue breathing treatments per primary service.
-Continue aspirin and Plavix. Continue high intensity statin.
HPI: Gonzalo is a 70-year-old male with past medical history of chronic HFpEF, CAD, recovered ischemic cardiac apathy, NSVT, orthostatic hypotension, paroxysmal atrial fibrillation and flutter, PVD, DM 2, hypertension, hyperlipidemia, RBBB, and COPD.
Presented to [facility] for evaluation of chest discomfort which awoke him from sleep last night. Describes it as a left-sided chest pain with radiation into his L arm. He was able to fall back asleep, but when he woke up again later in the morning he
again had the pain. Pain persisted despite taking Tums and doing a breathing treatment, prompting ER evaluation. In ER, he was found to have elevated troponin, initially at 0.045, up to 0.644 on repeat. He states pain has slowly resolved and now
he feels 'the after shock'. Denies any pain currently. Also does note some increased shortness of breath associated with chest discomfort. In ER, he was given SL nitro and states this may have helped somewhat, but did not completely resolve his
pain. He has known coronary disease which has been medically managed as he was previously not felt to have good revascularization options. He is on Nitropatch and Coreg as outpatient. Recently seen in the cardiology office 1 week ago and was
placed on higher dose carvedilol due to intermittent chest discomfort. He was admitted for further workup and evaluation given chest pain with elevated troponin. Cardiology consulted for evaluation.
Data Reviewed
-
EKG: Tracing Personally Visualized and interpreted
Radiology: Report Reviewed by me
Labs: Labs Reviewed by me
Old Records: Reviewed
[2025-04-13 17:24] LABS: Glucose - Point of Care 271 mg/dl (70-99)
[2025-04-13] MEDS: NOVOLOG FLEXPEN-LOW RESISTANCE 271 UNITS SC (17:24)
[2025-04-13] MEDS: LOVENOX 40 MG SC (17:25)
[2025-04-13] MEDS: PULMICORT 0.5 MG INH (19:44)
[2025-04-13] MEDS: RANEXA EXTENDED RELEASE 500 MG PO (20:54)
[2025-04-13] MEDS: MUCINEX 600 MG PO (20:54)
[2025-04-13] MEDS: TYLENOL 650 MG PO (20:54)
[2025-04-13] MEDS: COREG 6.25 MG PO (20:54)
[2025-04-13 21:19] LABS: Glucose - Point of Care 366 mg/dl (70-99)
[2025-04-13] MEDS: LANTUS 0.03 UNITS SC (22:05)
[2025-04-13] MEDS: NOVOLOG FLEXPEN 5 UNITS SC (22:05)
--- NOTE | 2025-04-13 22:51 | W.PN.UPDATE ---
Update Note
Progress Note Update
-Troponin trended up from 0.644->2.220. Patient denies sob or chest pain.
-Discussed with admitting physician/e commerce developer validation consultant and will start heparin drip, NPO, and trending troponin to peak.
[2025-04-13 23:53] LABS: Hematocrit 35.9 % (39.0-52.0); Hemoglobin 11.5 g/dL (13.0-18.0); Mean Corpuscular Hgb 28.7 pg (27.0-31.0); Mean Corpuscular Volume 89.5 fL (80.0-94.0); Mean Platelet Volume 8.8 fL (7.4-10.4); Platelet Count 223 10^3/uL (130-400); Red Blood Cell Count 4.01 10^6/uL (4.70-6.10); White Blood Cell Count 11.2 10^3/uL (4.8-10.8)
[2025-04-14 00:02] LABS: APTT 29.4 Sec (23.4-35.0)
[2025-04-14] MEDS: HEPARIN 25000 UNITS/250 ML IV ×2 (00:15→22:27)
[2025-04-14 03:19] VITALS: BP 141/88
[2025-04-14 06:02] LABS: Glucose - Point of Care 159 mg/dl (70-99)
[2025-04-14 06:28] LABS: Hematocrit 36.8 % (39.0-52.0); Hemoglobin 11.5 g/dL (13.0-18.0); Mean Corp Hgb Conc. 31.3 g/dL (33.0-37.0); Mean Corpuscular Hgb 28.3 pg (27.0-31.0); Mean Corpuscular Volume 90.4 fL (80.0-94.0); Mean Platelet Volume 8.6 fL (7.4-10.4); Platelet Count 217 10^3/uL (130-400); Red Blood Cell Count 4.07 10^6/uL (4.70-6.10); White Blood Cell Count 8.9 10^3/uL (4.8-10.8)
[2025-04-14 06:47] LABS: APTT 65.5 Sec (23.4-35.0)
[2025-04-14 07:15] LABS: ALT (SGPT) 28 U/L (0-50); AST (SGOT) 29 U/L (17-59); Albumin 3.8 g/dl (3.5-5.0); Alkaline Phosphatase 86 U/L (38-126); Blood Urea Nitrogen 16 mg/dl (9-20); Calcium 9.3 mg/dl (8.4-10.2); Carbon Dioxide 34 mmol/L (22-30); Chloride 97 mmol/L (98-107); Estimated Creatinine Clearance 109 ml/min; Glucose 148 mg/dl (70-99); Potassium 4.2 mmol/L (3.5-5.1); Sodium 137 mmol/L (135-145); Total Bilirubin 0.4 mg/dl (0.2-1.3); Total Protein 6.5 g/dl (6.3-8.2); eGFR > 60.00
[2025-04-14] MEDS: PULMICORT 0.5 MG INH ×2 (07:40→20:31)
--- NOTE | 2025-04-14 07:58 | W.PN.CARDCBS ---
Addendum entered and electronically signed by Indio Lee MD 04/14/25 10:47:
Patient seen and examined
Agree with SENIOR CORPORATE STRATEGY MANAGER note and assessment
Agree with SENIOR CORPORATE STRATEGY MANAGER plan
����Physical Exam
���������������������General:��no apparent distress, not acutely ill
���������������������������Neck:��supple. no meningeal signs. normal psoterior pharynx
������������������������
���������������������������Heart:��s1/s2 regular rate and rhythm, no murmur. equal radial pulses.
��������������������������Lungs: ��no acute respiratory distress. clear bilaterally
����������������������Abdomen:�normal bowel sounds. not tender. no CVAT
��������������������������Neuro:��alert and oriented. no focal neurological deficits
������������������������������Skin: ��no rash
�����������������������Psychiatric:�well kept. interactive and cooperative
�����������������������Extremities:��no edema. no calf tenderness. negative homans. good distal pulses
Impression:
Presented with chest pain
Elevated troponin, 0.045-0.644-2.2-2.6-1.63
Chronic HFpEF
CAD
s/p CABG 1999 at [facility] with GAR to LAD and free JONO Y graft from GAR to OM
cath showed progression of [place] CAD however patient bypass grafts 12/2019 History of recovered ischemic cardiomyopathy, EF 50 to 55% by echo 11/2024
h/o NSVT
orthostatic hypotension
Sinus tachycardia
Paroxysmal atrial flutter
s/p ablation in 2018Paroxysmal atrial fibrillation
diagnosed during 12/2019 admission without known recurrenceNot chronically anticoagulated due to patient's choice and low burden of atrial arrhythmia
PVD
h/o endovascular AAA repair and bilateral femoral artery endarterectomy and profundoplasty 07/2018Type 2 diabetes
Hypertension
Hypercholesterolemia
Chronic right bundle-branch block
COPD on chronic supp O2, 3L
History of duodenal ulcer with microperforation in 2018
h/o daily ETOH use now abstinent
Former smoker
DNR
ECHO 09/06/23: Definity used, EF 45 to 50%, global hypokinesis, stage I diastolic dysfunction, mild MR, trace TR, PAP 25 to 30 mmHg
Echo 12/11/2024: EF 50 to 55%, no regional wall motion abnormalities, mild concentric LVH, no significant valvular disease
Echo 02/23/2025: EF 50%, mild to moderate concentric LVH, no significant valvular disease
Plan:
-Presented with chest pain which awoke him from sleep. Persisted throughout the morning despite breathing treatment, Tums, and usual cardiac medications.
-Slowly chest pain resolved in ER and has remained chest pain-free
-troponin trended up to 2.6 overnight and patient started on heparin drip. Most recent trop 1.6. Remains chest pain-free.
-EKG reviewed, sinus rhythm with RBBB. No acute ischemic changes noted.
-He has known coronary artery disease which is being medically managed. Previously not felt to have good revascularization options.
-Nitropatch uptitrated to 0.2 mg 04/13.
-Ranexa added 04/13
-Continue Coreg. Dose recently increased to 6.25 mg twice daily.
-BP stable, however has history of orthostatic hypotension and this is limited prior up titration of medical therapy. Follow closely.
-Recent echo 02/2025 with preserved EF and no significant valvular disease as noted above. No need to repeat.
-Does note some increased SOB. Appears euvolemic. Continue Lasix 20 mg MWF. Continue breathing treatments per primary service.
-Continue aspirin and Plavix. Continue high intensity statin.
Original Note:
Today's Communication / Plan
-
trend troponin
tolerating uptitration of antianginals without CP and stable BPs
Impression / Plan
-
PCP: Dr. Pedroza
Cardiology: Dr. MILA Woo
Impression:
Presented with chest pain
Elevated troponin, 0.045-0.644-2.2-2.6-1.63
Chronic HFpEF
CAD
s/p CABG 1998 at [facility] with GAR to LAD and free JONO Y graft from GAR to OM
cath showed progression of [place] CAD however patient bypass grafts 12/2019
History of recovered ischemic cardiomyopathy, EF 50 to 55% by echo 11/2024
h/o NSVT
orthostatic hypotension
Sinus tachycardia
Paroxysmal atrial flutter
s/p ablation in 2017
Paroxysmal atrial fibrillation
diagnosed during 12/2019 admission without known recurrence
Not chronically anticoagulated due to patient's choice and low burden of atrial arrhythmia
PVD
h/o endovascular AAA repair and bilateral femoral artery endarterectomy and profundoplasty 07/2018
Type 2 diabetes
Hypertension
Hypercholesterolemia
Chronic right bundle-branch block
COPD on chronic supp O2, 3L
History of duodenal ulcer with microperforation in 2017
h/o daily ETOH use now abstinent
Former smoker
DNR
ECHO 09/06/23: Definity used, EF 45 to 50%, global hypokinesis, stage I diastolic dysfunction, mild MR, trace TR, PAP 25 to 30 mmHg
Echo 12/11/2024: EF 50 to 55%, no regional wall motion abnormalities, mild concentric LVH, no significant valvular disease
Echo 02/23/2025: EF 50%, mild to moderate concentric LVH, no significant valvular disease
Plan:
-Presented with chest pain which awoke him from sleep. Persisted throughout the morning despite breathing treatment, Tums, and usual cardiac medications.
-Slowly chest pain resolved in ER and has remained chest pain-free
-troponin trended up to 2.6 overnight and patient started on heparin drip. Most recent trop 1.6. Remains chest pain-free.
-EKG reviewed, sinus rhythm with RBBB. No acute ischemic changes noted.
-He has known coronary artery disease which is being medically managed. Previously not felt to have good revascularization options.
-Nitropatch uptitrated to 0.2 mg 04/13.
-Ranexa added 04/13
-Continue Coreg. Dose recently increased to 6.25 mg twice daily.
-BP stable, however has history of orthostatic hypotension and this is limited prior up titration of medical therapy. Follow closely.
-Recent echo 02/2025 with preserved EF and no significant valvular disease as noted above. No need to repeat.
-Does note some increased SOB. Appears euvolemic. Continue Lasix 20 mg MWF. Continue breathing treatments per primary service.
-Continue aspirin and Plavix. Continue high intensity statin.
HPI: Gonzalo is a 70-year-old male with past medical history of chronic HFpEF, CAD, recovered ischemic cardiac apathy, NSVT, orthostatic hypotension, paroxysmal atrial fibrillation and flutter, PVD, DM 2, hypertension, hyperlipidemia, RBBB, and COPD.
Presented to [facility] for evaluation of chest discomfort which awoke him from sleep last night. Describes it as a left-sided chest pain with radiation into his L arm. He was able to fall back asleep, but when he woke up again later in the morning he
again had the pain. Pain persisted despite taking Tums and doing a breathing treatment, prompting ER evaluation. In ER, he was found to have elevated troponin, initially at 0.045, up to 0.644 on repeat. He states pain has slowly resolved and now
he feels 'the after shock'. Denies any pain currently. Also does note some increased shortness of breath associated with chest discomfort. In ER, he was given SL nitro and states this may have helped somewhat, but did not completely resolve his
pain. He has known coronary disease which has been medically managed as he was previously not felt to have good revascularization options. He is on Nitropatch and Coreg as outpatient. Recently seen in the cardiology office 1 week ago and was
placed on higher dose carvedilol due to intermittent chest discomfort. He was admitted for further workup and evaluation given chest pain with elevated troponin. Cardiology consulted for evaluation.
Progress Note - Educational Psychology Teacher
Subjective
Date of Service: April 14, 2025
Started on heparin overnight for uptrending troponin, peak at 2.6 and now downtrending.
Patient remains chest pain-free
Blood pressure stable with up titration of Nitropatch and addition of Ranexa
Objective
Labs:
04/14/25 06:21
04/14/25 06:21
Labs
Hgb 11.5 g/dL (13.0-18.0) L 04/14/25 06:21
Hct 36.8 % (39.0-52.0) L 04/14/25 06:21
Plt Count 217 10^3/uL (130-400) 04/14/25 06:21
PT 12.8 Sec (11.4-14.6) 04/13/25 10:55
INR 0.93 04/13/25 10:55
APTT 65.5 Sec (23.4-35.0) H 04/14/25 06:21
Sodium 137 mmol/L (135-145) 04/14/25 06:21
Potassium 4.2 mmol/L (3.5-5.1) 04/14/25 06:21
BUN 16 mg/dl (9-20) 04/14/25 06:21
Creatinine 0.6 mg/dL (0.7-1.3) L 04/14/25 06:21
Glucose 148 mg/dl (70-99) H 04/14/25 06:21
Troponins
04/13/25 04/13/25 04/13/25
10:55 13:55 16:49
Troponin I 0.045 H* 0.644 H* D Cancelled
04/13/25 04/13/25 04/13/25
19:49 21:45 23:44
Troponin I Cancelled 2.220 H* D 2.630 H*
04/14/25
06:21
Troponin I 1.630 H* D
Vital Signs and I&O:
Vital Signs
Temp Pulse Resp BP Pulse Ox
97.7 F 87 16 141/88 99
04/14/25 03:19 04/14/25 07:42 04/14/25 07:42 04/14/25 03:19 04/14/25 07:42
Vital Signs
Temp Pulse Resp BP Pulse Ox
97.7 F 87 16 141/88 99
04/14/25 03:19 04/14/25 07:42 04/14/25 07:42 04/14/25 03:19 04/14/25 07:42
Intake & Output
04/12/25 04/13/25 04/14/25 04/15/25
06:59 06:59 06:59 06:59
Intake Total 240 / 240
Output Total 1275 / 1275
Balance -1035 / -1035
Physical Exam
Physical Exam
GEN: No distress, awake, Ox3
HEENT: supple, anicteric, mmm
LUNGS: CTA, no wheezes/rales
CV: Reg, S1/S2, no murmur
ABD: soft, BS+, NT/ND
EXT: No edema
NEURO: Gross non-focal
SKIN: No rash
[2025-04-14] MEDS: NOVOLOG FLEXPEN-LOW RESISTANCE SC (07:59)
[2025-04-14] MEDS: KCL 20 MEQ PO (08:36)
[2025-04-14] MEDS: ALDACTONE 12.5 MG PO (08:36)
[2025-04-14] MEDS: LIPITOR 80 MG PO (08:36)
[2025-04-14] MEDS: DELTASONE 10 MG PO (08:37)
[2025-04-14] MEDS: RANEXA EXTENDED RELEASE 500 MG PO ×2 (08:37→21:41)
[2025-04-14] MEDS: ZOLOFT 150 MG PO (08:37)
[2025-04-14] MEDS: MUCINEX 600 MG PO ×2 (08:37→21:41)
[2025-04-14] MEDS: WELLBUTRIN XL (24 hour extended release) 300 MG PO (08:37)
[2025-04-14] MEDS: PROTONIX 40 MG PO (08:37)
[2025-04-14] MEDS: NITRO-DUR 0.2 MG TRANSDERM (08:39)
[2025-04-14] MEDS: COREG 6.25 MG PO ×2 (08:39→21:42)
[2025-04-14] MEDS: LOW STRENGTH ASPIRIN 81 MG PO (08:39)
[2025-04-14] MEDS: PLAVIX 75 MG PO (08:39)
[2025-04-14] MEDS: ZITHROMAX 250 MG PO (08:39)
[2025-04-14] MEDS: FLOMAX 0.4 MG PO (08:39)
--- NOTE | 2025-04-14 09:37 | CM ---
Patient from [facility] with Dx NSTEMI. O2 2L. Receiving Heparin gtt, PO Abx. Per nurse; requires assist of 2.
Spoke with Haley Nurse [facility];
the patient resides there in LTC.
He is A/O, min assisted with ADLs and ambulatory with his rollator.
He uses a w/c for long distances.
The patient was on O2 3L nc.
The patient is able to feed himself.
He has a mason and is continent of bowel.
He was not receiving any PT/OT.
The ph for report [phone], fax [phone]
Plan contact [facility] re; bed hold and confirm fax for patient return.
Plan return to [facility] when medically ready.
[2025-04-14 11:22] VITALS: BP 101/61
[2025-04-14] MEDS: DUONEB 3 ML INH ×2 (11:26→20:31)
[2025-04-14 11:39] LABS: Glucose - Point of Care 337 mg/dl (70-99)
--- NOTE | 2025-04-14 11:39 | W.PN.HOSP.TC ---
Today's Communication/Plan
-
monior vitals
see plan
cw hep gtt per cardiology
on asa and plavix
cw nebs
increase insulin
PT
Assessment / Plan
Assessment / Plan
General: Well Developed, No Apparent Distress and Appears Chronically Ill
HEENT: NormoCephalic, Anicteric, Moist mucous membranes, Atraumatic, PERRLA and Oxygen
Respiratory: Wheezes, Rhonchi, Non Labored Respirations and Decreased Breath Sounds; No Rales or Accessory Resp Muscle Use
Cardiac: S1/S2, Regular Rhythm, Peripheral Edema (1+) and Other (Palpable pulses); No Murmur, Rub or Gallop
GI: Soft, Non Tender, Non Distended and Normal Bowel Sounds
Musculoskeletal: No Clubbing, No Cyanosis and No Edema
Skin: Warm and Dry; No Rash
Neuro: AO x 3, Nonfocal/grossly intact and Cranial Nerves Intact; No Tremors
Psych: Calm
Acute left sided CP - CP free at ER
CAD HX s/p CABG 1998
HX NSTEMI with peak trop 0.4. cath showed progression of [place] CAD however patient bypass grafts 12/2019
Retrospectively , he was manage medically as patient historically was not felt to have good options for revascularization of his significant coronary disease prior Card consultation
HX recovered ischemic cardiomyopathy, EF 50% by echo 02/2025
Troponin ordered, consistent with possible NSTEMI
Cardiology following
Overnight heparin started
On aspirin, Plavix
Management per cardiology
Ranexa added
HTN
- Continue to monitor, management per cardiology
PMHX Intermittent sinus tachycardia noted ? albuterol realated
Paroxysmal atrial flutter s/p ablation in 2017
Paroxysmal atrial fibrillation diagnosed during 12/2019 admission without known recurrence
Chronic right bundle-branch block
Home regimen includes carvedilol; not on anticoagulation due to low burden of arrhythmia and patient preference
- Not chronically OAC due to patient's choice and low burden of atrial arrhythmia
HX PVD , s/p endovascular AAA repair and bilateral femoral artery endarterectomy and profundoplasty 07/2018
Chronic hypoxemic and hypercapnic respiratory failure (3 L O2)
HX home O2 3 L dependent COPD
Chronic steroid
-Last PFTs with FEV1 percent 27% of expected, and DLCO 21% predicted
-Home regimen includes prednisone, azithromycin, budesonide inhaler, DuoNebs
-Utilizes 3 L of supplemental oxygen at baseline
-Stable on baseline O2, does have some wheezes
-Continue as needed DuoNeb, low threshold to increase steroid for short course
IDDM - No known microvascular dz though likely related to CAD/PAD
Only was on Lantus at home, increase Lantus, sliding scale
recent A1C 10; add mealtime insulin
Orthostatic hypotension HX
- on [employer] midodrine 5 mg 3 times daily
- monitor orthostatics and BP while here
HX peptic ulcer disease
DVT Px: hep
Code: DNR
I spent a total of 52 minutes with the patient or on the floor. More than 50% of this time involved counseling and coordination of care.
Anticipated Discharge: 24 - 48 hours
Subjective/Interval History
-
Date of Service: April 14, 2025
denies pain
Objective Data
-
Labs:
Laboratory Results
04/13/25 04/14/25 04/14/25
23:44 06:21 13:00
WBC 11.2 H 8.9
Hgb 11.5 L 11.5 L
Hct 35.9 L 36.8 L
Plt Count 223 217
APTT 29.4 65.5 H Pending
Sodium 137
Potassium 4.2
Chloride 97 L
Carbon Dioxide 34 H
BUN 16
Creatinine 0.6 L
Glucose 148 H
Calcium 9.3
Total Bilirubin 0.4
AST 29
ALT 28
Alkaline Phosphatase 86
Vital Signs:
Vital Signs
Temp Pulse Resp BP Pulse Ox
98.1 F 87 16 101/61 98
04/14/25 11:22 04/14/25 11:28 04/14/25 11:28 04/14/25 11:22 04/14/25 11:28
I&O
04/13/25 04/14/25 04/15/25
06:59 06:59 06:59
Intake Total 240 / 240
Output Total 1275 / 1275
Balance -1035 / -1035
[2025-04-14] MEDS: NOVOLOG FLEXPEN-LOW RESISTANCE 5 UNITS SC (12:39)
[2025-04-14] MEDS: NOVOLOG FLEXPEN 3 UNITS SC ×2 (12:40→16:57)
[2025-04-14 13:14] LABS: APTT 52.1 Sec (23.4-35.0)
[2025-04-14] MEDS: ProAIR HFA INHALER 2 PUFF INH (15:15)
[2025-04-14 15:35] VITALS: BP 129/76
[2025-04-14 16:34] LABS: Glucose - Point of Care 271 mg/dl (70-99)
[2025-04-14] MEDS: NOVOLOG FLEXPEN-LOW RESISTANCE 3 UNITS SC (16:58)
[2025-04-14 19:28] VITALS: BP 178/107
[2025-04-14 21:13] LABS: APTT 40.9 Sec (23.4-35.0)
[2025-04-14 21:32] LABS: Glucose - Point of Care 269 mg/dl (70-99)
[2025-04-14] MEDS: TYLENOL 650 MG PO (21:41)
[2025-04-14] MEDS: ATIVAN 0.5 MG PO ×2 (21:41)
[2025-04-14] MEDS: MELATONIN 3 MG PO ×2 (21:41)
[2025-04-14] MEDS: LANTUS 0.06 UNITS SC (21:42)
[2025-04-14 23:20] VITALS: BP 175/103
[2025-04-15] VITALS (8 sets, daily range): BP systolic 82–178; BP diastolic 53–100; PULSE 87; BMI 26.7
[2025-04-15 04:25] LABS: APTT 142.3 Sec (23.4-35.0)
[2025-04-15 07:00] LABS: % Basophils 0.5 % (0-2); % Eosinophils 4.1 % (0-6); % Immature Granulocytes 1.5 % (0-0.5); % Lymphocytes 11.3 % (20.5-51.1); % Neutrophils 70.6 % (42.2-75.2); Absolute Eosinophils 0.4 10^3/uL (0-0.7); Absolute Immature Granulocytes 0.1 10^3/uL (0-0.05); Absolute Monocytes 1.1 10^3/uL (0.1-0.6); Absolute Neutrophils 6.2 10^3/uL (1.4-6.5); Hematocrit 36.3 % (39.0-52.0); Hemoglobin 11.5 g/dL (13.0-18.0); Mean Corp Hgb Conc. 31.7 g/dL (33.0-37.0); Mean Corpuscular Hgb 28.4 pg (27.0-31.0); Mean Corpuscular Volume 89.6 fL (80.0-94.0); Mean Platelet Volume 9.1 fL (7.4-10.4); Nucleated Red Blood Cells % 0 % (-); Platelet Count 231 10^3/uL (130-400); Red Blood Cell Count 4.05 10^6/uL (4.70-6.10); Red Cell Dist. Width 12.9 % (11.5-14.5); White Blood Cell Count 8.8 10^3/uL (4.8-10.8)
[2025-04-15 07:41] LABS: Blood Urea Nitrogen 15 mg/dl (9-20); Calcium 9.1 mg/dl (8.4-10.2); Carbon Dioxide 27 mmol/L (22-30); Chloride 100 mmol/L (98-107); Estimated Creatinine Clearance 109 ml/min; Glucose 139 mg/dl (70-99); Potassium 4.2 mmol/L (3.5-5.1); Sodium 134 mmol/L (135-145); eGFR > 60.00
[2025-04-15] MEDS: DUONEB 3 ML INH ×3 (07:47→19:31)
[2025-04-15 07:48] LABS: Glucose - Point of Care 166 mg/dl (70-99)
[2025-04-15] MEDS: PULMICORT 0.5 MG INH ×2 (07:50→19:31)
[2025-04-15] MEDS: ZOLOFT 150 MG PO (08:46)
[2025-04-15] MEDS: PLAVIX 75 MG PO (08:46)
[2025-04-15] MEDS: MUCINEX 600 MG PO ×2 (08:46→20:20)
[2025-04-15] MEDS: COREG 6.25 MG PO ×2 (08:46→21:23)
[2025-04-15] MEDS: WELLBUTRIN XL (24 hour extended release) 300 MG PO (08:47)
[2025-04-15] MEDS: DELTASONE 10 MG PO (08:47)
[2025-04-15] MEDS: ALDACTONE 12.5 MG PO (08:47)
[2025-04-15] MEDS: ZITHROMAX 250 MG PO (08:47)
[2025-04-15] MEDS: LIPITOR 80 MG PO (08:47)
[2025-04-15] MEDS: FLOMAX 0.4 MG PO (08:47)
[2025-04-15] MEDS: LOW STRENGTH ASPIRIN 81 MG PO (08:47)
[2025-04-15] MEDS: PROTONIX 40 MG PO (08:47)
[2025-04-15] MEDS: NITRO-DUR 0.2 MG TRANSDERM (08:47)
[2025-04-15] MEDS: KCL 20 MEQ PO (08:47)
[2025-04-15] MEDS: RANEXA EXTENDED RELEASE 500 MG PO ×2 (08:47→21:23)
--- NOTE | 2025-04-15 10:10 | W.PN.CARDCBS ---
Today's Communication / Plan
-
Medication titration for medical management of CAD
Nearing discharge
Impression / Plan
-
PCP: Dr. Pedroza
Cardiology: Dr. MILA Woo
Impression:
Presented with chest pain
Elevated troponin, 0.045-0.644-2.2-2.6-1.63
Chronic HFpEF
CAD
s/p CABG 1998 at [facility] with GAR to LAD and free JONO Y graft from GAR to OM
cath showed progression of [place] CAD however patient bypass grafts 12/2019
History of recovered ischemic cardiomyopathy, EF 50 to 55% by echo 11/2024
h/o NSVT
orthostatic hypotension
Sinus tachycardia
Paroxysmal atrial flutter
s/p ablation in 2017
Paroxysmal atrial fibrillation
diagnosed during 12/2019 admission without known recurrence
Not chronically anticoagulated due to patient's choice and low burden of atrial arrhythmia
PVD
h/o endovascular AAA repair and bilateral femoral artery endarterectomy and profundoplasty 07/2018
Type 2 diabetes
Hypertension
Hypercholesterolemia
Chronic right bundle-branch block
COPD on chronic supp O2, 3L
History of duodenal ulcer with microperforation in 2018
h/o daily ETOH use now abstinent
Former smoker
DNR
ECHO 09/06/23: Definity used, EF 45 to 50%, global hypokinesis, stage I diastolic dysfunction, mild MR, trace TR, PAP 25 to 30 mmHg
Echo 12/11/2024: EF 50 to 55%, no regional wall motion abnormalities, mild concentric LVH, no significant valvular disease
Echo 02/23/2025: EF 50%, mild to moderate concentric LVH, no significant valvular disease
Plan:
-Presented with chest pain which awoke him from sleep. Persisted throughout the morning despite breathing treatment, Tums, and usual cardiac medications.
-Slowly chest pain resolved in ER and has remained chest pain-free
-Discontinue heparin after 48 hours
-EKG reviewed, sinus rhythm with RBBB. No acute ischemic changes noted.
-He has known coronary artery disease which is being medically managed. Previously not felt to have good revascularization options.
-Nitropatch uptitrated to 0.2 mg 04/13.
-Ranexa added 04/13
-Continue Coreg. Dose recently increased to 6.25 mg twice daily. He is tolerating these medical changes
-BP stable, however has history of orthostatic hypotension and this is limited prior up titration of medical therapy. Follow closely.
-Recent echo 02/2025 with preserved EF and no significant valvular disease as noted above. No need to repeat.
-Does note some increased SOB. Appears euvolemic. Continue Lasix 20 mg MWF. Continue breathing treatments per primary service.
-Continue aspirin and Plavix. Continue high intensity statin.
HPI: Gonzalo is a 70-year-old male with past medical history of chronic HFpEF, CAD, recovered ischemic cardiac apathy, NSVT, orthostatic hypotension, paroxysmal atrial fibrillation and flutter, PVD, DM 2, hypertension, hyperlipidemia, RBBB, and COPD.
Presented to [facility] for evaluation of chest discomfort which awoke him from sleep last night. Describes it as a left-sided chest pain with radiation into his L arm. He was able to fall back asleep, but when he woke up again later in the morning he
again had the pain. Pain persisted despite taking Tums and doing a breathing treatment, prompting ER evaluation. In ER, he was found to have elevated troponin, initially at 0.045, up to 0.644 on repeat. He states pain has slowly resolved and now
he feels 'the after shock'. Denies any pain currently. Also does note some increased shortness of breath associated with chest discomfort. In ER, he was given SL nitro and states this may have helped somewhat, but did not completely resolve his
pain. He has known coronary disease which has been medically managed as he was previously not felt to have good revascularization options. He is on Nitropatch and Coreg as outpatient. Recently seen in the cardiology office 1 week ago and was
placed on higher dose carvedilol due to intermittent chest discomfort. He was admitted for further workup and evaluation given chest pain with elevated troponin. Cardiology consulted for evaluation.
Progress Note - Receipt And Report Clerk
Subjective
Date of Service: April 15, 2025
Chest symptoms are improved
Objective
Labs:
04/15/25 06:16
04/15/25 06:16
Labs
Hgb 11.5 g/dL (13.0-18.0) L 04/15/25 06:16
Hct 36.3 % (39.0-52.0) L 04/15/25 06:16
Plt Count 231 10^3/uL (130-400) 04/15/25 06:16
PT 12.8 Sec (11.4-14.6) 04/13/25 10:55
INR 0.93 04/13/25 10:55
APTT 142.3 Sec (23.4-35.0) H 04/15/25 03:58
Sodium 134 mmol/L (135-145) L 04/15/25 06:16
Potassium 4.2 mmol/L (3.5-5.1) 04/15/25 06:16
BUN 15 mg/dl (9-20) 04/15/25 06:16
Creatinine 0.6 mg/dL (0.7-1.3) L 04/15/25 06:16
Glucose 139 mg/dl (70-99) H 04/15/25 06:16
Troponins
04/13/25 04/13/25 04/13/25
10:55 13:55 16:49
Troponin I 0.045 H* 0.644 H* D Cancelled
04/13/25 04/13/25 04/13/25
19:49 21:45 23:44
Troponin I Cancelled 2.220 H* D 2.630 H*
04/14/25
06:21
Troponin I 1.630 H* D
Vital Signs and I&O:
Vital Signs
Temp Pulse Resp BP Pulse Ox
97.4 F 85 16 135/85 94
04/15/25 07:10 04/15/25 07:51 04/15/25 07:51 04/15/25 07:10 04/15/25 07:51
Vital Signs
Temp Pulse Resp BP Pulse Ox
97.4 F 85 16 135/85 94
04/15/25 07:10 04/15/25 07:51 04/15/25 07:51 04/15/25 07:10 04/15/25 07:51
Intake & Output
04/13/25 04/14/25 04/15/25 04/16/25
06:59 06:59 06:59 06:59
Intake Total 240 / 240 980 / 980
Output Total 1275 / 1275 2500 / 2500
Balance -1035 / -1035 -1520 / -1520
Physical Exam
Physical Exam
����Physical Exam
���������������������General:��no apparent distress, not acutely ill
���������������������������Neck:��supple. no meningeal signs. normal psoterior pharynx
������������������������
���������������������������Heart:��s1/s2 regular rate and rhythm, no murmur. equal radial pulses.
��������������������������Lungs: ��no acute respiratory distress. clear bilaterally
����������������������Abdomen:�normal bowel sounds. not tender. no CVAT
��������������������������Neuro:��alert and oriented. no focal neurological deficits
������������������������������Skin: ��no rash
�����������������������Psychiatric:�well kept. interactive and cooperative
�����������������������Extremities:��no edema. no calf tenderness. negative homans. good distal pulses
��
�
[2025-04-15] MEDS: NOVOLOG FLEXPEN 3 UNITS SC ×3 (10:29→17:27)
[2025-04-15] MEDS: NOVOLOG FLEXPEN-LOW RESISTANCE 1 UNITS SC (10:29)
--- NOTE | 2025-04-15 11:10 | W.PN.HOSP.TC ---
Today's Communication/Plan
-
Monitor vital signs see plan
Continue with IV heparin
Continue Ranexa, Coreg
Continue insulin
Hopeful discharge tomorrow
Assessment / Plan
Assessment / Plan
General: Well Developed, No Apparent Distress and Appears Chronically Ill
HEENT: NormoCephalic, Anicteric, Moist mucous membranes
Respiratory: Wheezes, Rhonchi, Non Labored Respirations and Decreased Breath Sounds
Cardiac: S1/S2, Regular Rhythm
GI: Soft, Non Tender, Non Distended and Normal Bowel Sounds
Musculoskeletal: No Edema
Neuro: AO x 3, Nonfocal/grossly intact and Cranial Nerves Intact
Psych: Calm
Acute left sided CP - CP free at ER
CAD HX s/p CABG 1998
HX NSTEMI with peak trop 0.4. cath showed progression of [place] CAD however patient bypass grafts 12/2019
Retrospectively , he was manage medically as patient historically was not felt to have good options for revascularization of his significant coronary disease prior Card consultation
HX recovered ischemic cardiomyopathy, EF 50% by echo 02/2025
Troponin ordered, consistent with possible NSTEMI
Cardiology following
cw hep for 48hrs
On aspirin, Plavix
Management per cardiology
Ranexa added
coreg recent inc
HTN
- Continue to monitor, management per cardiology
PMHX Intermittent sinus tachycardia noted ? albuterol realated
Paroxysmal atrial flutter s/p ablation in 2017
Paroxysmal atrial fibrillation diagnosed during 12/2019 admission without known recurrence
Chronic right bundle-branch block
Home regimen includes carvedilol; not on anticoagulation due to low burden of arrhythmia and patient preference
- Not chronically OAC due to patient's choice and low burden of atrial arrhythmia
HX PVD , s/p endovascular AAA repair and bilateral femoral artery endarterectomy and profundoplasty 07/2018
Chronic hypoxemic and hypercapnic respiratory failure (3 L O2)
HX home O2 3 L dependent COPD
Chronic steroid
-Last PFTs with FEV1 percent 27% of expected, and DLCO 21% predicted
-Home regimen includes prednisone, azithromycin, budesonide inhaler, DuoNebs
-Utilizes 3 L of supplemental oxygen at baseline
-Stable on baseline O2, does have some wheezes
-Continue as needed DuoNeb, low threshold to increase steroid for short course
IDDM - No known microvascular dz though likely related to CAD/PAD
Only was on Lantus at home, increase Lantus, sliding scale
recent A1C 10; add mealtime insulin
Orthostatic hypotension HX
- on [employer] midodrine 5 mg 3 times daily
- monitor orthostatics and BP while here
HX peptic ulcer disease
DVT Px: hep
Code: DNR
I spent a total of 51 minutes with the patient or on the floor. More than 50% of this time involved counseling and coordination of care.
Anticipated Discharge: Within 24 hours
Subjective/Interval History
-
Date of Service: April 15, 2025
Denies pain
Objective Data
-
Labs:
Laboratory Results
04/15/25 04/15/25 04/15/25
03:58 06:16 11:30
WBC 8.8
Hgb 11.5 L
Hct 36.3 L
Plt Count 231
APTT 142.3 H Pending
Sodium 134 L
Potassium 4.2
Chloride 100
Carbon Dioxide 27
BUN 15
Creatinine 0.6 L
Glucose 139 H
Calcium 9.1
Vital Signs:
Vital Signs
Temp Pulse Resp BP Pulse Ox
97.4 F 85 16 135/85 94
04/15/25 07:10 04/15/25 07:51 04/15/25 07:51 04/15/25 07:10 04/15/25 07:51
I&O
04/14/25 04/15/25 04/16/25
06:59 06:59 06:59
Intake Total 240 / 240 980 / 980
Output Total 1275 / 1275 2500 / 2500
Balance -1035 / -1035 -1520 / -1520
[2025-04-15 11:45] LABS: APTT 79.6 Sec (23.4-35.0)
[2025-04-15 12:20] LABS: Glucose - Point of Care 248 mg/dl (70-99)
[2025-04-15] MEDS: NOVOLOG FLEXPEN-LOW RESISTANCE 2 UNITS SC (15:21)
[2025-04-15 16:42] LABS: Glucose - Point of Care 326 mg/dl (70-99)
[2025-04-15] MEDS: NOVOLOG FLEXPEN-LOW RESISTANCE 4 UNITS SC (17:27)
[2025-04-15 17:41] LABS: APTT 75.3 Sec (23.4-35.0)
[2025-04-15] MEDS: HEPARIN 25000 UNITS/250 ML IV (19:35)
[2025-04-15] MEDS: TYLENOL 650 MG PO (20:20)
[2025-04-15 21:19] LABS: Glucose - Point of Care 166 mg/dl (70-99)
[2025-04-15] MEDS: LANTUS 0.06 UNITS SC (21:24)
[2025-04-15] MEDS: MELATONIN 3 MG PO (23:06)
[2025-04-15] MEDS: ATIVAN 0.5 MG PO (23:06)
[2025-04-16] VITALS (7 sets, daily range): BP systolic 98–158; BP diastolic 69–101; BMI 25.5
[2025-04-16 07:08] LABS: % Basophils 0.5 % (0-2); % Eosinophils 4.4 % (0-6); % Immature Granulocytes 1.4 % (0-0.5); % Lymphocytes 12.1 % (20.5-51.1); % Monocytes 13.2 % (1.7-9.3); % Neutrophils 68.4 % (42.2-75.2); Absolute Basophils 0.1 10^3/uL (0-0.2); Absolute Eosinophils 0.4 10^3/uL (0-0.7); Absolute Immature Granulocytes 0.1 10^3/uL (0-0.05); Absolute Lymphocytes 1.1 10^3/uL (1.2-3.4); Absolute Monocytes 1.2 10^3/uL (0.1-0.6); Absolute Neutrophils 6.3 10^3/uL (1.4-6.5); Hematocrit 35.8 % (39.0-52.0); Hemoglobin 11.5 g/dL (13.0-18.0); Mean Corp Hgb Conc. 32.1 g/dL (33.0-37.0); Mean Corpuscular Hgb 28.4 pg (27.0-31.0); Mean Corpuscular Volume 88.4 fL (80.0-94.0); Mean Platelet Volume 8.9 fL (7.4-10.4); Nucleated Red Blood Cells % 0 % (-); Platelet Count 240 10^3/uL (130-400); Red Blood Cell Count 4.05 10^6/uL (4.70-6.10); Red Cell Dist. Width 13.1 % (11.5-14.5); White Blood Cell Count 9.2 10^3/uL (4.8-10.8)
[2025-04-16] MEDS: PULMICORT 0.5 MG INH ×2 (07:22→19:11)
[2025-04-16] MEDS: DUONEB 3 ML INH ×2 (07:22→19:11)
[2025-04-16 07:38] LABS: Glucose - Point of Care 143 mg/dl (70-99)
--- NOTE | 2025-04-16 08:38 | W.PN.CARDCBS ---
Addendum entered and electronically signed by Tab Woo MD 04/16/25 13:10:
70-year-old man CABG in 1998, admitted now with recurrent chest pain and troponin level of approximately 2, last catheterization in December 2019, patent grafts but progression of [place] disease and jeopardized myocardium not approachable through
percutaneous means
PMH/PSH: CAD, CABG, nonsustained VT, orthostasis, atrial flutter ablation 2017, PAF without recent recurrence, endovascular AAA repair with femoral endarterectomy 2018, diabetes, hypertension, hypercholesterolemia right bundle branch block, COPD on
supplemental oxygen, duodenal ulcer with micro perforation in 2018, history of EtOH abuse, HFpEF
Medications: Azithromycin, albuterol, Pulmicort, IV heparin, ranolazine 500 twice daily, aspirin 81 mg a day, atorvastatin 80 mg a day, Wellbutrin 300 daily, carvedilol 6.25 twice daily, Plavix 75 mg a day, furosemide 20 mg Wednesday,
melatonin, pantoprazole, potassium chloride, prednisone 10 mg a day, spironolactone 12.5 twice daily, sertraline twice daily, Flomax, Dex, insulin
132/84, pulse 78, respiratory rate 18, afebrile, weight is 79.6 kg, if accurate up 3.4 kg from yesterday but similar to April 13, still with vague discomfort in his chest, head neck exam unremarkable, diminished breath sounds, regular rate and
rhythm, no obvious murmurs, abdomen benign extremities without clubbing cyanosis or edema, right radial and right femoral pulses intact
Hemoglobin 11.5, white count 9.2 platelets 240, BMP pending yesterday BUN and creatinine were 15 and 0.6, peak troponin was 2.6, no proBNP
ECG yesterday sinus rhythm, frequent PVCs, right bundle branch block, diffuse ST and T changes
Impression:
Presented with chest pain
Elevated troponin, 0.045-0.644-2.2-2.6-1.63
Chronic HFpEF
CAD
s/p CABG 1998 at [facility] with GAR to LAD and free JONO Y graft from GAR to OM
cath showed progression of [place] CAD however patient bypass grafts 12/2019 History of recovered ischemic cardiomyopathy, EF 50 to 55% by echo 11/2024
h/o NSVT
orthostatic hypotension
Sinus tachycardia
Paroxysmal atrial flutter
s/p ablation in 2018Paroxysmal atrial fibrillation
diagnosed during 12/2019 admission without known recurrenceNot chronically anticoagulated due to patient's choice and low burden of atrial arrhythmia
PVD
h/o endovascular AAA repair and bilateral femoral artery endarterectomy and profundoplasty 07/2018Type 2 diabetes
Hypertension
Hypercholesterolemia
Chronic right bundle-branch block
COPD on chronic supp O2, 3L
History of duodenal ulcer with microperforation in 2018
h/o daily ETOH use now abstinent
Former smoker
DNR
ECHO 09/06/23: Definity used, EF 45 to 50%, global hypokinesis, stage I diastolic dysfunction, mild MR, trace TR, PAP 25 to 30 mmHg
Echo 12/11/2024: EF 50 to 55%, no regional wall motion abnormalities, mild concentric LVH, no significant valvular disease
Echo 02/23/2025: EF 50%, mild to moderate concentric LVH, no significant valvular disease
Plan:
Clinically he is unchanged, but keeps bouncing back with recurrent chest pain and elevated troponin.
I have been trying to keep him out of the [employer] Analyst because he did not have amenable targets for intervention with last cath, but this was 5 years ago, and it may be that he has a new lesion that is approachable and placing him at risk.
I have discussed this with him and specifically whether we should consider catheterization or continue with the current strategy. He is frustrated, understandably so with the current situation and so is in favor of proceeding with cardiac
catheterization. We will proceed tomorrow.
Original Note:
Today's Communication / Plan
-
LHC in am
Impression / Plan
-
PCP: Dr. Pedroza
Cardiology: Dr. MILA Woo
Impression:
Presented with chest pain
Elevated troponin, 0.045-0.644-2.2-2.6-1.63
Chronic HFpEF
CAD
s/p CABG 1998 at [facility] with GAR to LAD and free JONO Y graft from GAR to OM
cath showed progression of [place] CAD however patient bypass grafts 12/2019
History of recovered ischemic cardiomyopathy, EF 50 to 55% by echo 11/2024
h/o NSVT
orthostatic hypotension
Sinus tachycardia
Paroxysmal atrial flutter
s/p ablation in 2017
Paroxysmal atrial fibrillation
diagnosed during 12/2019 admission without known recurrence
Not chronically anticoagulated due to patient's choice and low burden of atrial arrhythmia
PVD
h/o endovascular AAA repair and bilateral femoral artery endarterectomy and profundoplasty 07/2018
Type 2 diabetes
Hypertension
Hypercholesterolemia
Chronic right bundle-branch block
COPD on chronic supp O2, 3L
History of duodenal ulcer with microperforation in 2017
h/o daily ETOH use now abstinent
Former smoker
DNR
ECHO 09/06/23: Definity used, EF 45 to 50%, global hypokinesis, stage I diastolic dysfunction, mild MR, trace TR, PAP 25 to 30 mmHg
Echo 12/11/2024: EF 50 to 55%, no regional wall motion abnormalities, mild concentric LVH, no significant valvular disease
Echo 02/23/2025: EF 50%, mild to moderate concentric LVH, no significant valvular disease
Plan:
-Presented with chest pain which awoke him from sleep. Persisted throughout the morning despite breathing treatment, Tums, and usual cardiac medications.
-Slowly chest pain resolved in ER but reoccurred briefly overnight despite up titration of antianginals with increasing Nitropatch to 0.2 mg on 04/13 and adding Ranexa on 04/13
-Left heart cath discussed and will proceed with left heart cath on 04/17/2025
-Creat 0.7, 04/16
-EKG reviewed, 04/13/2025 sinus rhythm with RBBB and PVCs. No acute ischemic changes noted.
-Continue Coreg. Dose recently increased to 6.25 mg twice daily. Consider up titration given elevated blood pressure
-BP stable, however has history of orthostatic hypotension and this is limited prior up titration of medical therapy. Follow closely.
-Recent echo 02/2025 with preserved EF and no significant valvular disease as noted above. No need to repeat.
-Does note some increased SOB. Appears euvolemic. Continue Lasix 20 mg MWF. Continue breathing treatments per primary service.
-Continue aspirin and Plavix. Continue high intensity statin.
HPI: Gonzalo is a 70-year-old male with past medical history of chronic HFpEF, CAD, recovered ischemic cardiac apathy, NSVT, orthostatic hypotension, paroxysmal atrial fibrillation and flutter, PVD, DM 2, hypertension, hyperlipidemia, RBBB, and COPD.
Presented to [facility] for evaluation of chest discomfort which awoke him from sleep last night. Describes it as a left-sided chest pain with radiation into his L arm. He was able to fall back asleep, but when he woke up again later in the morning he
again had the pain. Pain persisted despite taking Tums and doing a breathing treatment, prompting ER evaluation. In ER, he was found to have elevated troponin, initially at 0.045, up to 0.644 on repeat. He states pain has slowly resolved and now
he feels 'the after shock'. Denies any pain currently. Also does note some increased shortness of breath associated with chest discomfort. In ER, he was given SL nitro and states this may have helped somewhat, but did not completely resolve his
pain. He has known coronary disease which has been medically managed as he was previously not felt to have good revascularization options. He is on Nitropatch and Coreg as outpatient. Recently seen in the cardiology office 1 week ago and was
placed on higher dose carvedilol due to intermittent chest discomfort. He was admitted for further workup and evaluation given chest pain with elevated troponin. Cardiology consulted for evaluation.
Progress Note - [employer]
Subjective
Date of Service: April 16, 2025
Had episode of chest pain overnight
Objective
Labs:
04/16/25 06:27
Labs
Hgb 11.5 g/dL (13.0-18.0) L 04/16/25 06:27
Hct 35.8 % (39.0-52.0) L 04/16/25 06:27
Plt Count 240 10^3/uL (130-400) 04/16/25 06:27
PT 12.8 Sec (11.4-14.6) 04/13/25 10:55
INR 0.93 04/13/25 10:55
APTT 100.0 Sec (23.4-35.0) H 04/16/25 06:27
Sodium 134 mmol/L (135-145) L 04/15/25 06:16
Potassium 4.2 mmol/L (3.5-5.1) 04/15/25 06:16
BUN 15 mg/dl (9-20) 04/15/25 06:16
Creatinine 0.6 mg/dL (0.7-1.3) L 04/15/25 06:16
Glucose 139 mg/dl (70-99) H 04/15/25 06:16
Troponins
04/13/25 04/13/25 04/13/25
10:55 13:55 16:49
Troponin I 0.045 H* 0.644 H* D Cancelled
04/13/25 04/13/25 04/13/25
19:49 21:45 23:44
Troponin I Cancelled 2.220 H* D 2.630 H*
04/14/25
06:21
Troponin I 1.630 H* D
Vital Signs and I&O:
Vital Signs
Temp Pulse Resp BP Pulse Ox
97.2 F 78 18 132/84 95
04/16/25 07:00 04/16/25 07:26 04/16/25 07:26 04/16/25 07:00 04/16/25 07:26
Vital Signs
Temp Pulse Resp BP Pulse Ox
97.2 F 78 18 132/84 95
04/16/25 07:00 04/16/25 07:26 04/16/25 07:26 04/16/25 07:00 04/16/25 07:26
Intake & Output
04/14/25 04/15/25 04/16/25 04/17/25
06:59 06:59 06:59 06:59
Intake Total 240 / 240 980 / 980 680 / 680
Output Total 1275 / 1275 2500 / 2500 1900 / 1900
Balance -1035 / -1035 -1520 / -1520 -1220 / -1220
Physical Exam
Physical Exam
GEN: No distress, awake, Ox3
HEENT: supple, anicteric, mmm
LUNGS: Breath sounds decreased
CV: Reg, S1/S2, no murmur
ABD: soft, BS+, NT/ND
EXT: No edema
NEURO: Gross non-focal
SKIN: No rash
[2025-04-16 09:01] LABS: Blood Urea Nitrogen 18 mg/dl (9-20); Calcium 9.1 mg/dl (8.4-10.2); Carbon Dioxide 26 mmol/L (22-30); Chloride 102 mmol/L (98-107); Estimated Creatinine Clearance 94 ml/min; Glucose 144 mg/dl (70-99); Potassium 3.9 mmol/L (3.5-5.1); Sodium 137 mmol/L (135-145); eGFR > 60.00
[2025-04-16] MEDS: NOVOLOG FLEXPEN-LOW RESISTANCE SC (09:08)
[2025-04-16] MEDS: NOVOLOG FLEXPEN 3 UNITS SC ×3 (09:08→17:48)
[2025-04-16] MEDS: MUCINEX 600 MG PO ×2 (09:09→19:14)
[2025-04-16] MEDS: FLOMAX 0.4 MG PO (09:09)
[2025-04-16] MEDS: PROTONIX 40 MG PO (09:09)
[2025-04-16] MEDS: DELTASONE 10 MG PO (09:09)
[2025-04-16] MEDS: LIPITOR 80 MG PO (09:09)
[2025-04-16] MEDS: WELLBUTRIN XL (24 hour extended release) 300 MG PO (09:09)
[2025-04-16] MEDS: NITRO-DUR 0.2 MG TRANSDERM (09:10)
[2025-04-16] MEDS: ALDACTONE 12.5 MG PO (09:10)
[2025-04-16] MEDS: COREG 6.25 MG PO ×2 (09:10→19:14)
[2025-04-16] MEDS: PLAVIX 75 MG PO (09:10)
[2025-04-16] MEDS: ZITHROMAX 250 MG PO (09:10)
[2025-04-16] MEDS: LOW STRENGTH ASPIRIN 81 MG PO (09:10)
[2025-04-16] MEDS: RANEXA EXTENDED RELEASE 500 MG PO ×2 (09:10→19:14)
[2025-04-16] MEDS: ZOLOFT 150 MG PO (09:10)
[2025-04-16] MEDS: KCL 20 MEQ PO (09:11)
[2025-04-16] MEDS: LASIX 20 MG PO (09:24)
--- NOTE | 2025-04-16 10:23 | W.PN.HOSP.TC ---
Addendum entered and electronically signed by Mic العراقي MD 04/16/25 11:18:
Discussed with cardiology, given recurrent symptoms need left heart cath tomorrow.
Addendum entered and electronically signed by Mic العراقي MD 04/16/25 10:31:
Correction: Patient is not on midodrine anymore
Original Note:
Today's Communication/Plan
-
Monitor vital signs and see plan
DC further IV heparin if okay with cardiology
Potential discharge if okay with cardiology
Continue with Nitropatch, Ranexa
Continue Coreg
Assessment / Plan
Assessment / Plan
General: Well Developed, No Apparent Distress and Appears Chronically Ill
HEENT: NormoCephalic, Anicteric, Moist mucous membranes
Respiratory: Wheezes, Rhonchi, Non Labored Respirations
Cardiac: S1/S2, Regular Rhythm
GI: Soft, Non Tender, Non Distended and Normal Bowel Sounds
Musculoskeletal: No Edema
Neuro: AO x 3, Nonfocal/grossly intact and Cranial Nerves Intact
Psych: Calm
Acute left sided CP likely NSTEMI
CAD HX s/p CABG 1998
HX NSTEMI with peak trop 0.4. cath showed progression of [place] CAD however patient bypass grafts 12/2019
Retrospectively , he was manage medically as patient historically was not felt to have good options for revascularization of his significant coronary disease prior Card consultation
HX recovered ischemic cardiomyopathy, EF 50% by echo 02/2025
Troponin noted, consistent with possible NSTEMI
Cardiology following
cw hep for 48hrs; discussed with RN, dc hep if ok with cardiology
On aspirin, Plavix
Management per cardiology
Ranexa added
coreg recent inc
HTN
- Continue to monitor, management per cardiology
PMHX Intermittent sinus tachycardia noted ? albuterol realated
Paroxysmal atrial flutter s/p ablation in 2017
Paroxysmal atrial fibrillation diagnosed during 12/2019 admission without known recurrence
Chronic right bundle-branch block
Home regimen includes carvedilol; not on anticoagulation due to low burden of arrhythmia and patient preference
- Not chronically OAC due to patient's choice and low burden of atrial arrhythmia
HX PVD , s/p endovascular AAA repair and bilateral femoral artery endarterectomy and profundoplasty 07/2018
Chronic hypoxemic and hypercapnic respiratory failure (3 L O2)
HX home O2 3 L dependent COPD
Chronic steroid
-Last PFTs with FEV1 percent 27% of expected, and DLCO 21% predicted
-Home regimen includes prednisone, azithromycin, budesonide inhaler, DuoNebs
-Utilizes 3 L of supplemental oxygen at baseline
-Stable on baseline O2, does have some wheezes
-Continue as needed DuoNeb, low threshold to increase steroid for short course
IDDM - No known microvascular dz though likely related to CAD/PAD
Only was on Lantus at home, increase Lantus, sliding scale
recent A1C 10; add mealtime insulin
Orthostatic hypotension HX
- on [employer] midodrine 5 mg 3 times daily
- monitor orthostatics and BP while here
HX peptic ulcer disease
DVT Px: hep
Code: DNR
Anticipated Discharge: Today
Subjective/Interval History
-
Date of Service: April 16, 2025
Denies pain
Objective Data
-
Labs:
Laboratory Results
04/16/25
06:27
WBC 9.2
Hgb 11.5 L
Hct 35.8 L
Plt Count 240
APTT 100.0 H
Sodium 137
Potassium 3.9
Chloride 102
Carbon Dioxide 26
BUN 18
Creatinine 0.7
Glucose 144 H
Calcium 9.1
Vital Signs:
Vital Signs
Temp Pulse Resp BP Pulse Ox
97.2 F 78 18 132/84 95
04/16/25 07:00 04/16/25 07:26 04/16/25 07:26 04/16/25 07:00 04/16/25 07:26
I&O
04/15/25 04/16/25 04/17/25
06:59 06:59 06:59
Intake Total 980 / 980 680 / 680
Output Total 2500 / 2500 1900 / 1900
Balance -1520 / -1520 -1220 / -1220
[2025-04-16 12:04] LABS: Glucose - Point of Care 237 mg/dl (70-99)
[2025-04-16] MEDS: NOVOLOG FLEXPEN-LOW RESISTANCE 2 UNITS SC ×2 (12:40→17:48)
[2025-04-16] MEDS: TYLENOL 650 MG PO ×2 (15:48→23:14)
[2025-04-16 16:50] LABS: Glucose - Point of Care 247 mg/dl (70-99)
--- NOTE | 2025-04-16 16:56 | CM ---
Per PT indication is for rehab. Sent referral to [facility] to determine if there is room in their skilled before he goes back to his room. Referral sent through allscripts.
Plan: Case management will continue to follow and assist with discharge planning. Back to [facility]-recommendation is for SNF.
[2025-04-16] MEDS: HEPARIN 25000 UNITS/250 ML IV (19:01)
[2025-04-16 21:47] LABS: Glucose - Point of Care 224 mg/dl (70-99)
[2025-04-16] MEDS: ATIVAN 0.5 MG PO (23:13)
[2025-04-16] MEDS: LANTUS 0.06 UNITS SC (23:13)
[2025-04-16] MEDS: MELATONIN 3 MG PO (23:14)
[2025-04-17] VITALS (15 sets, daily range): BP systolic 88–165; BP diastolic 55–101; BMI 26.4
[2025-04-17 05:35] LABS: Glucose - Point of Care 149 mg/dl (70-99)
[2025-04-17] MEDS: NOVOLOG FLEXPEN-LOW RESISTANCE SC (05:39)
[2025-04-17 07:04] LABS: Hematocrit 36.2 % (39.0-52.0); Hemoglobin 11.7 g/dL (13.0-18.0); Mean Corp Hgb Conc. 32.3 g/dL (33.0-37.0); Mean Corpuscular Hgb 28.4 pg (27.0-31.0); Mean Corpuscular Volume 87.9 fL (80.0-94.0); Mean Platelet Volume 9.1 fL (7.4-10.4); Platelet Count 245 10^3/uL (130-400); Red Blood Cell Count 4.12 10^6/uL (4.70-6.10); Red Cell Dist. Width 13.2 % (11.5-14.5); White Blood Cell Count 8.6 10^3/uL (4.8-10.8)
[2025-04-17 07:09] LABS: APTT 86.5 Sec (23.4-35.0)
[2025-04-17] MEDS: NOVOLOG FLEXPEN SC (07:41)
[2025-04-17] MEDS: LIPITOR 80 MG PO (07:46)
[2025-04-17] MEDS: WELLBUTRIN XL (24 hour extended release) 300 MG PO (07:46)
[2025-04-17] MEDS: PROTONIX 40 MG PO (07:46)
[2025-04-17] MEDS: FLOMAX 0.4 MG PO (07:46)
[2025-04-17] MEDS: COREG 6.25 MG PO ×2 (07:46→19:27)
[2025-04-17] MEDS: RANEXA EXTENDED RELEASE 500 MG PO ×2 (07:46→19:27)
[2025-04-17] MEDS: MUCINEX 600 MG PO ×2 (07:46→19:26)
[2025-04-17] MEDS: KCL 20 MEQ PO (07:47)
[2025-04-17] MEDS: ZOLOFT 150 MG PO (07:47)
[2025-04-17] MEDS: NITRO-DUR 0.2 MG TRANSDERM (07:48)
[2025-04-17] MEDS: DELTASONE 10 MG PO (07:48)
[2025-04-17] MEDS: LOW STRENGTH ASPIRIN 81 MG PO (07:48)
[2025-04-17] MEDS: ALDACTONE 12.5 MG PO (07:48)
[2025-04-17] MEDS: ZITHROMAX 250 MG PO (07:48)
[2025-04-17] MEDS: PLAVIX 75 MG PO (07:48)
[2025-04-17] MEDS: PULMICORT 0.5 MG INH ×2 (07:53→19:23)
[2025-04-17] MEDS: DUONEB 3 ML INH (07:53)
[2025-04-17] MEDS: TYLENOL 650 MG PO ×3 (08:16→21:57)
[2025-04-17] MEDS: NSS 1000 IV (10:57)
--- NOTE | 2025-04-17 11:00 | ITS.CL.CATH ---
[facility] - Catheterization
Cardiac Catheterization
Procedure Report:
LEFT HEART CATHETERIZATION
Date of Procedure: April 17, 2025
Referring: Dr. Tab Woo
PROCEDURES:
1. Left heart catheterization with coronary left ventriculography
INDICATION: This is a 70-year-old gentleman with a past medical history notable for coronary artery disease and history of coronary artery bypass grafting at [facility] in 1998. Bypass surgery included a GAR-JONO Y graft with a
GAR-LAD and JONO Y graft-OM. He has known severe peripheral vascular disease with repair of abdominal aortic aneurysm using a Adair excluder graft and bilateral iliac artery limb extensions. He had extensive common femoral endarterectomy. He has
a history of LV dysfunction and COPD requiring 3 L O2 supplementation. Prior history of daily alcohol use but is now abstinent and living at [facility] secondary to orthostatic hypotension. He also has a history of paroxysmal atrial
fibrillation diagnosed in December 2019 without known recurrence and underwent ablation of atrial flutter in 2018.
He now presents to [facility] for evaluation of substernal chest pressure that awoke him from sleep. His troponin was mildly elevated peaking at 2.63 ng/ml. He is now referred for coronary angiography
ACCESS: Left radial artery, 6 Fr. sheath. History of endovascular abdominal aortic aneurysm repair with a Adair endovascular device with extensive bilateral common femoral endarterectomy and bilateral iliac artery limb extension
HEMODYNAMICS : (mmHg)
AO (s/d) : 127/61
LV (s/d) : 126/6
LVEDP : 15
CORONARY ANGIOGRAPHY: Dense three-vessel coronary calcification
Dominance: Left
LEFT MAIN: Calcified globular left main plaque
LEFT ANTERIOR DESCENDING: The [place] LAD is very heavily calcified with faint contrast penetration to a first septal manager consumer before the LAD becomes occluded
CIRCUMFLEX: 100% occluded
RIGHT CORONARY ARTERY: Small nondominant with 90% mid stenosis feeding a small distal vessel supplying right to left collaterals
GRAFT ANGIOGRAPHY:
1. GAR-JONO Y to the LAD and OM:
GAR-LAD : The GAR graft to the LAD is widely patent. There is antegrade and retrograde filling of the LAD. The LAD proximal to the GAR anastomosis is diffusely narrowed and becomes 100% occluded. The LAD distal to the GAR anastomosis is a
large caliber vessel with brisk antegrade flow. The distal LAD wraps around the apex. Collaterals from the apical LAD fill a sizable first diagonal branch
JONO Y-graft from the mid GAR to OM: Widely patent supplying a moderate-large OM branch that has a new 95% stenosis just beyond the JONO anastomosis
LEFT VENTRICULOGRAPHY: Left ventriculography is performed in an GREEN projection. The digital single-plane left ventricular ejection fraction is estimated at 40% with posterior basal and anterolateral hypokinesis noted.
SEDATION: 106 minutes of procedural sedation was utilized. An independent medical practice administrator was present to assist with and help manage the patient's level of consciousness and physiologic status
RADIATION SUMMARY: Fluoro Time (min): 11.5, Dose (mGy): 661, DAP (Gy.cm2) : 43.2
Closure Device: TR band
CONCLUSION
1. New high-grade stenosis in distal obtuse marginal branch just beyond JONO anastomosis. The JONO Y graft arises from the mid GAR graft and represents a sole remaining conduit to the LAD and circumflex
2. Widely patent GAR to LAD
3. Mild LV dysfunction
RECOMMENDATIONS
1. Will review angiographic findings with interventional colleagues and discuss implications of a sole conduit with the patient and family. PCI of the OM could be attempted but if a complication occurs there would be limited treatment options.
There is significant tortuosity in the JONO graft as it arises from the ANAM. ANAM grafts are prone to dissection and tortuosity and force required to deliver equipment may increase this risk. The OM is not small but is also not comparable to the
LAD in vascular territory or myocardium supplied. I would favor conservative management given limited vascular access options and high risk nature of treating this lesion. I would treat with dual antiplatelet therapy and maximize antianginal
treatment maybe with addition of Ranexa which may improve symptoms without precipitation of hypotension. Certainly, this is a difficult situation
Copy to: Dr. Tab Woo
[2025-04-17 12:09] LABS: Glucose - Point of Care 173 mg/dl (70-99)
[2025-04-17] MEDS: NOVOLOG FLEXPEN 3 UNITS SC ×2 (12:35→17:18)
[2025-04-17] MEDS: NOVOLOG FLEXPEN-LOW RESISTANCE 1 UNITS SC (12:36)
--- NOTE | 2025-04-17 13:33 | W.PN.HOSP.TC ---
Today's Communication/Plan
-
wait Cath report and Cardiology plans
Once off heparin gtt , needs ZULEMA ordered
Bowel regimen.
Assessment / Plan
Assessment / Plan
70-year-old with chest pain
Chest x-ray 04/13/2025-increased subsegmental atelectasis/scarring within the right middle lobe
Echo 02/23/2025-EF 50%, mild to moderate concentric LVH, no significant valvular disease
CVS: S1-S2 normal
Chest: CTA B/L
Abdomen: Soft, NT / Bowel sounds present
Extremities: No edema, left UE Cath site looks Stable
# Left-sided chest [id number]
History of coronary artery disease status post CABG in 1998
Troponin peaked to 2.6
Cath showed progression of [place] coronary disease patent grafts
Retrospectively , he was manage medically as patient historically was not felt to have good options for revascularization of his significant coronary disease prior
Status post heparin drip for 48 hours
Continue aspirin, Plavix, Coreg, statin
Ranexa added
Cardiac cath done today 04/17/2025- No report yet
# Ischemic cardiomyopathy with recovered ejection fraction 50% by echo February 2025
# Hypertension-continue Coreg
# Paroxysmal atrial fibrillation status post ablation 2017
Recurrence December 2019
History of NSVT
Home regimen includes Coreg.
Patient was not on anticoagulation due to low burden of arrhythmia and patient preference
# History of peripheral vascular disease status post endovascular AAA repair and bilateral femoral artery endarterectomy and profundoplasty
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
# Chronic hypoxemic and hypercapnic respiratory failure (3 L O2)
Last PFTs with FEV1 percent 27% of expected, and DLCO 21% predicted
Steroid-dependent 10 mg daily
Home regimen includes prednisone, azithromycin, budesonide inhaler, DuoNebs
# Diabetes hemoglobin A1c 10
Patient is on Lantus 3 units as outpatient-increased to 6 units
NovoLog 3 units AC
Dose increased
Continue with sliding scale coverage
# Constipation- Bowel regimen
# Hyperlipidemia-continue statin
# Orthostatic hypotension-continue midodrine 5 mg 3 times daily
# Anxiety and depression-continue Wellbutrin, lorazepam, sertraline
# Prostate disease-continue Flomax
# Peptic ulcer disease/GERD-PPI
# Sleep apnea
# History of daily alcohol use-now abstinent
# Ex-smoker
# DVT prophylaxis-currently on heparin drip. Start ZULEMA when Off Drip.
# DNR
D/W RN
Part of this note was created using voice recognition system. Occasional wrong word or��sound alike� substitutions may have inadvertently occurred due to the inherent limitations of voice recognition software. If noted kindly bring it to my
attention for correction.
Anticipated Discharge: Within 24 hours
Subjective/Interval History
-
Date of Service: April 17, 2025
Objective Data
-
Labs:
Laboratory Results
04/17/25
06:17
WBC 8.6
Hgb 11.7 L
Hct 36.2 L
Plt Count 245
APTT 86.5 H
Vital Signs:
Vital Signs
Temp Pulse Resp BP Pulse Ox
97.9 F 71 18 96/64 93
04/17/25 12:30 04/17/25 12:30 04/17/25 12:30 04/17/25 12:30 04/17/25 12:30
I&O
04/16/25 04/17/25 04/18/25
06:59 06:59 06:59
Intake Total 680 / 680 1166 / 1166
Output Total 1900 / 1900 2650 / 2650
Balance -1220 / -1220 -1484 / -1484
[2025-04-17] MEDS: SENOKOT 8.6 MG PO (13:49)
[2025-04-17] MEDS: MIRALAX 17 GRAMS PO (13:49)
[2025-04-17] MEDS: MILK OF MAGNESIA 30 ML PO (13:49)
--- NOTE | 2025-04-17 14:07 | CM ---
Received message from Musa in admissions at [facility]. They can take patient for skilled rehab when he is cleared for discharge. Met with patient who is agreeable. Referral has already been sent.
Plan: Case management will continue to follow and assist with discharge planning. [facility] when stable.
--- NOTE | 2025-04-17 15:58 | PTCARENOTE ---
Received pt from label remover. R band to L wrist with 8cc air. Pt BP low 80s/40s post procedure, pt per, and cardiology [employer] made aware. Post procedure IVF at 118ml/hr for 3 hours per order. R band removed at 12:36. 4x4 with tegaderm applied,
clean, dry and intact. Heparin gtt restarted at 12ml/hr at 14:45. Pt reports headache, PRN tylenol administered. No further complaints, call kuhn within reach.
[2025-04-17 17:04] LABS: Glucose - Point of Care 216 mg/dl (70-99)
[2025-04-17] MEDS: NOVOLOG FLEXPEN-LOW RESISTANCE 2 UNITS SC (17:19)
[2025-04-17] MEDS: ROBITUSSIN 200 MG PO (17:19)
[2025-04-17 21:15] LABS: Glucose - Point of Care 178 mg/dl (70-99)
[2025-04-17] MEDS: HEPARIN 25000 UNITS/250 ML IV (21:52)
[2025-04-17 21:54] LABS: APTT 48.3 Sec (23.4-35.0)
[2025-04-17] MEDS: LANTUS 0.06 UNITS SC (21:56)
[2025-04-17] MEDS: MELATONIN 3 MG PO (21:57)
[2025-04-17] MEDS: SENOKOT 17.2 MG PO (21:57)
[2025-04-17] MEDS: ATIVAN 0.5 MG PO (21:57)
[2025-04-18 03:49] VITALS: BP 139/71
[2025-04-18 04:29] LABS: Hematocrit 36.4 % (39.0-52.0); Hemoglobin 11.4 g/dL (13.0-18.0); Mean Corp Hgb Conc. 31.3 g/dL (33.0-37.0); Mean Corpuscular Hgb 28.1 pg (27.0-31.0); Mean Corpuscular Volume 89.7 fL (80.0-94.0); Mean Platelet Volume 8.9 fL (7.4-10.4); Platelet Count 252 10^3/uL (130-400); Red Blood Cell Count 4.06 10^6/uL (4.70-6.10); Red Cell Dist. Width 13.3 % (11.5-14.5); White Blood Cell Count 9.4 10^3/uL (4.8-10.8)
[2025-04-18 05:15] LABS: Blood Urea Nitrogen 19 mg/dl (9-20); Calcium 9.3 mg/dl (8.4-10.2); Carbon Dioxide 25 mmol/L (22-30); Chloride 104 mmol/L (98-107); Estimated Creatinine Clearance 94 ml/min; Glucose 138 mg/dl (70-99); Potassium 4.4 mmol/L (3.5-5.1); Sodium 135 mmol/L (135-145); eGFR > 60.00
[2025-04-18 05:31] LABS: APTT 119.8 Sec (23.4-35.0)
[2025-04-18 06:00] VITALS: BMI 26.4
[2025-04-18 07:00] VITALS: BP 143/90
[2025-04-18] MEDS: DUONEB 3 ML INH ×2 (07:28→11:51)
[2025-04-18] MEDS: PULMICORT 0.5 MG INH ×2 (07:28→20:09)
[2025-04-18 07:35] LABS: Glucose - Point of Care 158 mg/dl (70-99)
[2025-04-18] MEDS: WELLBUTRIN XL (24 hour extended release) 300 MG PO (08:32)
[2025-04-18] MEDS: LIPITOR 80 MG PO (08:32)
[2025-04-18] MEDS: KCL 20 MEQ PO (08:32)
[2025-04-18] MEDS: MUCINEX 600 MG PO (08:32)
[2025-04-18] MEDS: RANEXA EXTENDED RELEASE 500 MG PO (08:32)
[2025-04-18] MEDS: PROTONIX 40 MG PO (08:32)
[2025-04-18] MEDS: MIRALAX 17 GRAMS PO (08:32)
[2025-04-18] MEDS: NITRO-DUR 0.2 MG TRANSDERM (08:32)
[2025-04-18] MEDS: LASIX 20 MG PO (08:32)
[2025-04-18] MEDS: PLAVIX 75 MG PO (08:33)
[2025-04-18] MEDS: ALDACTONE 12.5 MG PO (08:33)
[2025-04-18] MEDS: ZITHROMAX 250 MG PO (08:33)
[2025-04-18] MEDS: ZOLOFT 150 MG PO (08:33)
[2025-04-18] MEDS: LOW STRENGTH ASPIRIN 81 MG PO (08:34)
[2025-04-18] MEDS: DELTASONE 10 MG PO (08:34)
[2025-04-18] MEDS: COREG 6.25 MG PO (08:34)
[2025-04-18] MEDS: FLOMAX 0.4 MG PO (08:34)
[2025-04-18] MEDS: NOVOLOG FLEXPEN 3 UNITS SC ×3 (09:16→16:25)
[2025-04-18] MEDS: NOVOLOG FLEXPEN-LOW RESISTANCE 1 UNITS SC (09:16)
[2025-04-18 11:49] VITALS: BP 106/69
[2025-04-18 11:58] LABS: Glucose - Point of Care 325 mg/dl (70-99)
--- NOTE | 2025-04-18 11:59 | W.PN.HOSP.TC ---
Today's Communication/Plan
-
Discussed with cardiology. Okay for discharge
Discussed with nursing regarding replacing Vogel catheter
PT evaluation requested
Increase Lantus
Discharge
Assessment / Plan
Assessment / Plan
70-year-old with chest pain
Chest x-ray 04/13/2025-increased subsegmental atelectasis/scarring within the right middle lobe
Echo 02/23/2025-EF 50%, mild to moderate concentric LVH, no significant valvular disease
CVS: S1-S2 normal
Chest: CTA B/L
Abdomen: Soft, NT / Bowel sounds present
Extremities: No edema
Cardiac cath-new high-grade stenosis in distal obtuse marginal branch beyond JONO anastomosis. The JONO Y graft arises from the mid GAR graft and represents a sole remaining conduit to the LAD and circumflex. Widely patent GAR to LAD. Mild LV
dysfunction.
# Left-sided chest [id number]
History of coronary artery disease status post CABG in 1998
Troponin peaked to 2.6
Cath showed progression of [place] coronary disease patent grafts
Retrospectively , he was manage medically as patient historically was not felt to have good options for revascularization of his significant coronary disease prior
Stop heparin drip
Continue aspirin, Plavix, Coreg, statin
Ranexa added
Cardiac cath done today 04/17/2025-as above
Not good interventional options here therefore medical management recommended
# Ischemic cardiomyopathy with recovered ejection fraction 50% by echo February 2025
# Hypertension-continue Coreg
# Paroxysmal atrial fibrillation status post ablation 2017
Recurrence December 2019
History of NSVT
Home regimen includes Coreg.
Patient was not on anticoagulation due to low burden of arrhythmia and patient preference
# History of peripheral vascular disease status post endovascular AAA repair and bilateral femoral artery endarterectomy and profundoplasty
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
# Chronic hypoxemic and hypercapnic respiratory failure (3 L O2)
Last PFTs with FEV1 percent 27% of expected, and DLCO 21% predicted
Steroid-dependent 10 mg daily
Home regimen includes prednisone, azithromycin, budesonide inhaler, DuoNebs
# Diabetes hemoglobin A1c 10
Patient is on Lantus 3 units as outpatient-increased to 7 units
NovoLog 3 units AC
Dose increased
Continue with sliding scale coverage
# Constipation- Resolved.
# Hyperlipidemia-continue statin
# Orthostatic hypotension-continue midodrine 5 mg 3 times daily
# Anxiety and depression-continue Wellbutrin, lorazepam, sertraline
# Prostate disease-continue Flomax
# Peptic ulcer disease/GERD-PPI
# Sleep apnea-not on CPAP, only on oxygen
# History of daily alcohol use-now abstinent
# Ex-smoker
# DVT prophylaxis-subcutaneous heparin
# DNR
D/W RN
Spoke to sister and updated
More than 30 minutes spent in discharge including
Final examination of the patient
Summarizing hospital stay
Instructions for continuing care to all relevant caregivers
Preparation of discharge records, prescriptions, and referral forms
Total time spent (in minutes): 38 min
Part of this note was created using voice recognition system. Occasional wrong word or��sound alike� substitutions may have inadvertently occurred due to the inherent limitations of voice recognition software. If noted kindly bring it to my
attention for correction.
Anticipated Discharge: Today
Subjective/Interval History
-
Date of Service: April 18, 2025
Objective Data
-
Labs:
Laboratory Results
04/18/25 04/18/25
04:18 11:33
WBC 9.4
Hgb 11.4 L
Hct 36.4 L
Plt Count 252
APTT 119.8 H Pending
Sodium 135
Potassium 4.4
Chloride 104
Carbon Dioxide 25
BUN 19
Creatinine 0.7
Glucose 138 H
Calcium 9.3
Vital Signs:
Vital Signs
Temp Pulse Resp BP Pulse Ox
98.1 F 87 18 106/69 98
04/18/25 11:49 04/18/25 11:49 04/18/25 11:49 04/18/25 11:49 04/18/25 11:49
I&O
04/17/25 04/18/25 04/19/25
06:59 06:59 06:59
Intake Total 1166 / 1166 646 / 646
Output Total 2650 / 2650 1500 / 1500
Balance -1484 / -1484 -854 / -854
[2025-04-18 12:01] LABS: APTT 95.1 Sec (23.4-35.0)
[2025-04-18 12:15] VITALS: BP 116/74; PULSE 83; O2SAT 96
[2025-04-18] MEDS: NOVOLOG FLEXPEN-LOW RESISTANCE 4 UNITS SC (12:15)
--- NOTE | 2025-04-18 13:23 | PTCARENOTE ---
Exchanged mason catheter per MD request/order. Pt tolerated well. Leg strap to L leg, draining yellow, sediment urine.
--- NOTE | 2025-04-18 13:47 | W.DS.TRANS ---
Addendum entered and electronically signed by Melanie Marley MD 04/18/25 14:31:
Dictation-[id number]
Original Note:
DC Summary - Specialty Person
-
Discharge Instructions:
Discharge Diagnosis/Procedures Non-ST elevation myocardial infarction
Ischemic cardiomyopathy
Hypertension
Chronic hypoxemic and hypercapnic respiratory
failure
Insulin-dependent diabetes mellitus
Orthostatic hypotension
Peripheral vascular disease
RBBB
Hyperlipidemia
Anxiety and depression
Prostate disease
Peptic ulcer disease
Diet Diabetic, Carb Controlled,2 Gram Sodium,Restrict
fluids to 64 oz
Activity As tolerated
Driving Restrictions Not until seen by your Dr
Bathing Restrictions None
Other Services PT
Specialty Instructions Weigh Daily
Instructions:
Stand-Alone Forms:
Changes to Home Medications: Yes
Discharge Medications:
DC Medications w/original date entered in [employer]
albuterol sulfate 90 mcg/actuation aerosol inhaler 2 puff inhalation R Q6HPRN PRN SOB 07/02/23
atorvastatin 80 mg tablet 80 mg PO DAILY High cholesterol 07/02/23
ipratropium 0.5 mg-albuterol 3 mg (2.5 mg base)/3 mL nebulization soln 3 ml inhalation R QIDPRN PRN SOB 07/02/23
pantoprazole 40 mg tablet,delayed release 40 mg PO DAILY Gastrointestinal issue 07/02/23
tamsulosin 0.4 mg capsule 0.4 mg PO DAILY BPH 07/02/23
prednisone 10 mg tablet 10 mg PO DAILY Anti-inflammatory #0 tabs 09/10/23
acetaminophen 325 mg tablet 650 mg PO Q4HPRN PRN mild pain/fever 12/08/24
bisacodyl 10 mg rectal suppository 10 mg ID DAILYPRN PRN if mom ineffective 12/08/24
magnesium hydroxide 400 mg/5 mL oral suspension (Milk of Magnesia) 30 ml PO HSPRN PRN constipation 12/08/24
fluticasone propionate 50 mcg/actuation nasal spray,suspension 2 spray intranasal DAILYPRN PRN allergies 02/23/25
budesonide 0.5 mg/2 mL suspension for nebulization 0.5 mg inhalation R BID@0830,1830 copd 04/13/25
insulin aspart U-100 100 unit/mL (3 mL) subcutaneous pen 3 unit (0.03 mL) SC AC Diabetes #0 mL 04/16/25
lorazepam 0.5 mg tablet 0.5 mg PO TIDPRN PRN sleep/anxiety #6 tabs 04/16/25
nitroglycerin 0.2 mg/hr transdermal 24 hour patch 0.2 mg transdermal DAILY #0 ea 04/16/25
ranolazine 500 mg tablet,extended release,12 hr 500 mg PO BID Heart disease/condition #60 tabs 04/16/25
ascorbic acid (vitamin C) 500 mg tablet (Vitamin C) 500 mg PO DAILY Supplement #0 tabs 04/18/25
aspirin 81 mg chewable tablet (Children's Aspirin) 81 mg PO DAILY Blood clot prevention/tx #1 tab 04/18/25
azithromycin 250 mg tablet 250 mg PO DAILY Lung/breathing issues #0 tabs 04/18/25
bupropion HCl 300 mg 24 hr tablet, extended release 300 mg PO DAILY Depression #0 tabs 04/18/25
carvedilol 6.25 mg tablet 6.25 mg PO BID Heart disease/condition #0 tabs 04/18/25
clopidogrel 75 mg tablet (Plavix) 75 mg PO DAILY Blood clot prevention/tx #30 tabs 04/18/25
dextromethorphan-guaifenesin 30 mg-600 mg tablet extended [id number] hr (Mucinex DM) 1 tab PO Q12H Congestion #0 tabs 04/18/25
furosemide 20 mg tablet 20 mg PO MOWEFR Fluid retention/Swelling #0 tabs 04/18/25
insulin glargine 100 unit/mL subcutaneous solution (Lantus U-100 Insulin) 7 unit (0.07 mL) SC HS Diabetes #0 mL 04/18/25
melatonin 3 mg tablet 3 mg PO HS Sleep #0 tabs 04/18/25
nitroglycerin 0.1 mg/hr transdermal 24 hour patch 0.2 mg transdermal DAILY Heart disease/condition 1 month #30 ea 04/18/25
polyethylene glycol 3350 17 gram oral powder packet 17 g PO DAILY Constipation #0 ea 04/18/25
potassium chloride 20 mEq tablet,extended release(part/cryst) 20 meq PO DAILY Electrolyte Repletion #0 tabs 04/18/25
sertraline 150 mg capsule 150 mg PO DAILY Depression #0 caps 04/18/25
spironolactone 25 mg tablet 12.5 mg (1/2 x 25 mg) PO DAILY Heart disease/condition #0 tabs 04/18/25
Home Medication Changes
Nitroglycerin increased to 0.2
Ranexa is new
NovoLog insulin is new
Increased Lantus
Pending Results: No
--- NOTE | 2025-04-18 14:30 | CM ---
Patient medically cleared for discharge. Placed a call to Musa in admissions at [facility] who stated that patient can return today. report [phone], fax [phone]
Met with patient to discuss discharge. Patient signed IMM after it was reviewed it is on chart. He had no concerns.
Medical necessity form and transfer sheet completed for transfer.
Plan: Case management will continue to follow and assist with discharge planning. Back to [facility].
[2025-04-18 15:21] VITALS: BP 108/75
[2025-04-18 16:23] LABS: Glucose - Point of Care 263 mg/dl (70-99)
[2025-04-18] MEDS: HEPARIN 5000 UNITS SC (16:24)
[2025-04-18] MEDS: NOVOLOG FLEXPEN-LOW RESISTANCE 3 UNITS SC (16:25)
--- NOTE | 2025-04-18 17:45 | W.PN.CARDCBS ---
Today's Communication / Plan
-
Cath results reviewed. There is a distal OM lesion past a JONO Y graft which we will attempt to treat medically.
Continue aspirin, Plavix, Coreg, nitroglycerin, atorvastatin, and spironolactone.
Will add Ranexa.
Okay for discharge from cardiology standpoint
Impression / Plan
-
PCP: Dr. Pedroza
Cardiology: Dr. MILA Woo
Impression:
Presented with chest pain
Elevated troponin, 0.045-0.644-2.2-2.6-1.63
Chronic HFpEF
CAD
s/p CABG 1998 at [facility] with GAR to LAD and free JONO Y graft from GAR to OM
cath showed progression of [place] CAD however patient bypass grafts 12/2019
History of recovered ischemic cardiomyopathy, EF 50 to 55% by echo 11/2024
h/o NSVT
orthostatic hypotension
Sinus tachycardia
Paroxysmal atrial flutter
s/p ablation in 2018
Paroxysmal atrial fibrillation
diagnosed during 12/2019 admission without known recurrence
Not chronically anticoagulated due to patient's choice and low burden of atrial arrhythmia
PVD
h/o endovascular AAA repair and bilateral femoral artery endarterectomy and profundoplasty 07/2018
Type 2 diabetes
Hypertension
Hypercholesterolemia
Chronic right bundle-branch block
COPD on chronic supp O2, 3L
History of duodenal ulcer with microperforation in 2018
h/o daily ETOH use now abstinent
Former smoker
DNR
ECHO 09/06/23: Definity used, EF 45 to 50%, global hypokinesis, stage I diastolic dysfunction, mild MR, trace TR, PAP 25 to 30 mmHg
Echo 12/11/2024: EF 50 to 55%, no regional wall motion abnormalities, mild concentric LVH, no significant valvular disease
Echo 02/23/2025: EF 50%, mild to moderate concentric LVH, no significant valvular disease
Cath: 04/17/25: GAR-LAD patent, JONO Ygraft GAR to OM with 95% distal stenosis.
Plan:
-Cath results reviewed. Plan is for medical therapy. will add Ranexa 500mg po bid.
-Cont Coreg, Atorvastatin, NTG, aldactone
-Recent echo 02/2025 with preserved EF and no significant valvular disease as noted above. No need to repeat.
-Does note some increased SOB. Appears euvolemic. Continue Lasix 20 mg MWF. Continue breathing treatments per primary service.
-Continue aspirin and Plavix. Continue high intensity statin.
HPI: Gonzalo is a 70-year-old male with past medical history of chronic HFpEF, CAD, recovered ischemic cardiac apathy, NSVT, orthostatic hypotension, paroxysmal atrial fibrillation and flutter, PVD, DM 2, hypertension, hyperlipidemia, RBBB, and COPD.
Presented to [facility] for evaluation of chest discomfort which awoke him from sleep last night. Describes it as a left-sided chest pain with radiation into his L arm. He was able to fall back asleep, but when he woke up again later in the morning he
again had the pain. Pain persisted despite taking Tums and doing a breathing treatment, prompting ER evaluation. In ER, he was found to have elevated troponin, initially at 0.045, up to 0.644 on repeat. He states pain has slowly resolved and now
he feels 'the after shock'. Denies any pain currently. Also does note some increased shortness of breath associated with chest discomfort. In ER, he was given SL nitro and states this may have helped somewhat, but did not completely resolve his
pain. He has known coronary disease which has been medically managed as he was previously not felt to have good revascularization options. He is on Nitropatch and Coreg as outpatient. Recently seen in the cardiology office 1 week ago and was
placed on higher dose carvedilol due to intermittent chest discomfort. He was admitted for further workup and evaluation given chest pain with elevated troponin. Cardiology consulted for evaluation.
Progress Note - Trap Setter
Subjective
Date of Service: April 18, 2025
No new chest pains.
Objective
Labs:
04/18/25 04:18
04/18/25 04:18
Labs
Hgb 11.4 g/dL (13.0-18.0) L 04/18/25 04:18
Hct 36.4 % (39.0-52.0) L 04/18/25 04:18
Plt Count 252 10^3/uL (130-400) 04/18/25 04:18
PT 12.8 Sec (11.4-14.6) 04/13/25 10:55
INR 0.93 04/13/25 10:55
APTT 95.1 Sec (23.4-35.0) H 04/18/25 11:33
Sodium 135 mmol/L (135-145) 04/18/25 04:18
Potassium 4.4 mmol/L (3.5-5.1) 04/18/25 04:18
BUN 19 mg/dl (9-20) 04/18/25 04:18
Creatinine 0.7 mg/dL (0.7-1.3) 04/18/25 04:18
Glucose 138 mg/dl (70-99) H 04/18/25 04:18
Vital Signs and I&O:
Vital Signs
Temp Pulse Resp BP Pulse Ox
98 F 93 20 108/75 96
04/18/25 15:21 04/18/25 15:21 04/18/25 15:21 04/18/25 15:21 04/18/25 15:21
Vital Signs
Temp Pulse Resp BP Pulse Ox
98 F 93 20 108/75 96
04/18/25 15:21 04/18/25 15:21 04/18/25 15:21 04/18/25 15:21 04/18/25 15:21
Intake & Output
04/16/25 04/17/25 04/18/25 04/19/25
06:59 06:59 06:59 06:59
Intake Total 680 / 680 1166 / 1166 646 / 646
Output Total 1900 / 1900 2650 / 2650 1500 / 1500
Balance -1220 / -1220 -1484 / -1484 -854 / -854
Physical Exam
Physical Exam
GEN: No distress, awake, Ox3
HEENT: supple, anicteric, mmm
LUNGS: CTA, no wheezes/rales
CV: Reg, S1/S2, 1/6 syst LSB, no gallop
ABD: soft, BS+, NT/ND
EXT: No edema
NEURO: Gross non-focal
SKIN: No rash
[2025-04-18] MEDS: ATIVAN 0.5 MG PO (19:26)
--- NOTE | 2025-04-18 20:56 | PTCARENOTE ---
Pt is being picked up by ambulance now. pt is leaving with Vogel catheter and O2 3L.
== END 2025-04-18 21:05 | DRG 281 ==
LOC: 4 EAST ACU 16:21
PROVIDERS: Internal Medicine; Internal Medicine Cardiovascular Disease; Nurse Practitioner; Nurse Practitioner Family; Physician Assistant; ADMITTING PHYSICIAN Internal Medicine; ATTENDING PHYSICIAN Hospitalist; CONSULT PHYSICIAN Internal Medicine Cardiovascular Disease; EMERGENCY PHYSICIAN Emergency Medicine; FAMILY PHYSICIAN Student in an Organized Health Care Education/Training Program
PROC: 4A023N7 Measurement of Cardiac Sampling and Pressure, Left Heart, Percutaneous Approach (ICD-10-PCS; 2025-04-17)
PROC: B2151ZZ Fluoroscopy of Left Heart using Low Osmolar Contrast (ICD-10-PCS; 2025-04-17)
PROC: B2111ZZ Fluoroscopy of Multiple Coronary Arteries using Low Osmolar Contrast (ICD-10-PCS; 2025-04-17)
DX: I21.4 Non-ST elevation (NSTEMI) myocardial infarction (principal); I50.32 Chronic diastolic (congestive) heart failure; J96.11 Chronic respiratory failure with hypoxia; J96.12 Chronic respiratory failure with hypercapnia; Z87.891 Personal history of nicotine dependence; Z66 Do not resuscitate; Z79.4 Long term (current) use of insulin; E11.51 Type 2 diabetes mellitus with diabetic peripheral angiopathy without gangrene; I25.5 Ischemic cardiomyopathy; I11.0 Hypertensive heart disease with heart failure; I95.1 Orthostatic hypotension; I45.10 Unspecified right bundle-branch block; F32.A Depression, unspecified; F41.9 Anxiety disorder, unspecified; K27.9 Peptic ulcer, site unspecified, unspecified as acute or chronic, without hemorrhage or perforation; E78.00 Pure hypercholesterolemia, unspecified
CPT/HCPCS: 71046; 80048; 80053; 82962; 83036; 83880; 84484; 85025; 85027; 85379; 85610; 85730; 87070; 93005; 93459; 94640; 97162; 97530; 99152; 99153; C1894; Q9967

== ENCOUNTER → 2025-05-01 10:45 | Outpatient (REF) | payer OTHER, MEDICARE, MEDICAID, SELFPAY ==
[2025-05-01 12:05] LABS: Blood Urea Nitrogen 17 mg/dl (9-20); Calcium 9.3 mg/dl (8.4-10.2); Carbon Dioxide 32 mmol/L (22-30); Chloride 97 mmol/L (98-107); Glucose 159 mg/dl (70-99); Potassium 4.1 mmol/L (3.5-5.1); Sodium 136 mmol/L (135-145); eGFR > 60.00
== END ==
LOC: OLABN 10:45
PROVIDERS: ATTENDING PHYSICIAN Student in an Organized Health Care Education/Training Program
DX: E87.1 Hypo-osmolality and hyponatremia (principal)
CPT/HCPCS: 36415; 80048

== ENCOUNTER → 2025-05-03 10:50 | Outpatient (REF) | payer OTHER, MEDICARE, MEDICAID, SELFPAY ==
[2025-05-03 11:28] LABS: Blood Urea Nitrogen 12 mg/dl (9-20); Calcium 9.2 mg/dl (8.4-10.2); Carbon Dioxide 31 mmol/L (22-30); Chloride 100 mmol/L (98-107); Glucose 140 mg/dl (70-99); Potassium 4.0 mmol/L (3.5-5.1); Sodium 137 mmol/L (135-145); eGFR > 60.00
== END ==
LOC: OLABN 10:50
PROVIDERS: ATTENDING PHYSICIAN Student in an Organized Health Care Education/Training Program
DX: E87.1 Hypo-osmolality and hyponatremia (principal)
CPT/HCPCS: 36415; 80048

== ENCOUNTER 2025-05-07 12:16 | Inpatient (IN) | payer MEDICARE, MEDICAID, SELFPAY ==
[2025-05-07] VITALS (89 sets, daily range): BP systolic 84–211; BP diastolic 51–134; BMI 25.5
[2025-05-07 07:54] LABS: Hematocrit 33.3 % (39.0-52.0); Hemoglobin 10.6 g/dL (13.0-18.0); Mean Corp Hgb Conc. 31.8 g/dL (33.0-37.0); Mean Corpuscular Volume 91.0 fL (80.0-94.0); Nucleated Red Blood Cells % 0 % (-); Platelet Count 249 10^3/uL (130-400); Red Cell Dist. Width 13.8 % (11.5-14.5)
[2025-05-07 08:12] LABS: ALT (SGPT) 20 U/L (0-50); AST (SGOT) 19 U/L (17-59); Albumin 4.0 g/dl (3.5-5.0); Alkaline Phosphatase 127 U/L (38-126); Blood Urea Nitrogen 10 mg/dl (9-20); Calcium 9.1 mg/dl (8.4-10.2); Carbon Dioxide 26 mmol/L (22-30); Chloride 103 mmol/L (98-107); Estimated Creatinine Clearance 94 ml/min; Glucose 177 mg/dl (70-99); Potassium 4.1 mmol/L (3.5-5.1); Sodium 137 mmol/L (135-145); Total Protein 6.4 g/dl (6.3-8.2); eGFR > 60.00
--- NOTE | 2025-05-07 08:12 | ED.GENMED ---
History of Present Illness
General
Chief Complaint: Chest Pain
Time Seen by Provider: 05/07/25 07:31
History of Present Illness
History of Present Illness:
70-year-old male with history of CAD status post CABG and stenting, COPD on 3 L O2, hypertension, hyperlipidemia, diabetes, CHF presenting to the emergency department for chest pain. Patient reports that he woke up with the chest pain, substernal
with radiation to his left arm. Patient with recent admission to the hospital for NSTEMI. Patient had catheterization 04/17 which showed areas of high-grade stenosis, however patient deemed to be too high risk for any intervention, medical therapy.
Patient was discharged on a transdermal nitroglycerin patch. Additional nitroglycerin was administered and route and patient does note some improvement of his pain. Denies any increased difficulty breathing. Denies fever or cough. Denies
abdominal pain or GI symptoms. Denies additional acute medical complaints
Past History
Past History
ED Past Medical History: Arrthythmia (Atrial fib), CAD, CHF, COPD, GERD, HTN, Hypercholesterolemia, IDDM, DC (Non-STEMI December 2019), Valvular disease and Other (Back pain, Headaches, Sleep apnea, IBS, Pancreatitis, Ulcers, Gastritis, Anemia, )
ED Past Surgical History: Cardiac (CABG, PTCA with stent), Cholecystectomy (January 2016), Orthopedic (Right wrist surgery), Tonsilectomy and Other (hernia repair, endovascular AAA with bilateral femoral endarterectomy and profundoplasty 07/2018)
Social History
Tobacco: Former smoker
Alcohol: None
Drug: None
Personal: Single
Living: alone
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
Family History
Family History: Hypertension
Phy Exam
Physical Exam
Physical Exam:
General: Well-appearing, no clinical signs of dehydration, nontoxic and in no acute distress
HEENT: protecting airway
Neck: appears supple
CV: Normal heart rate, regular rhythm
Resp: No accessory muscle use, no increased work of breathing, lungs clear to auscultation bilaterally
Abd: Soft and non-distended, no tenderness to palpation
Extremities: No deformities, no swelling
Neuro: alert, no focal neurologic deficit
: deferred
Rectal: deferred
Psych: Normal affect
Skin: Intact
Scores
Heart Score for Chest Pain Patients
STEMI patient?: No
History: Slightly or Non-Suspicious
ECG: Nonspecific Repolarization
Age: >/= 65 years
Risk Factors: >/= 3 Risk Factors or History of CAD
Troponin: >1 - <3 x Normal Limit
Heart Score for Chest Pain Patients: 6
Heart Score Risk: 20.3% MACE over next 6 weeks
Course
Orders/Labs/Results
Orders:
Orders
05/07/25 07:34
EKG [Electrocardiogram (*1)] Urgent
Reason for Study: Chest Pain
EKG- Treatment ONCE
05/07/25 07:37
EKG- Treatment ONCE
CR Chest - 2 Views Urgent
Comment:
Reason For Exam: chest pain
05/07/25 07:40
Complete Blood Count/With Diff Urgent
Comprehensive Metabolic Panel Urgent
NT-proBNP Urgent
Troponin I Urgent
05/07/25 09:09
EKG- Treatment ONCE
05/07/25 09:11
Labetalol HCl [Trandate] 20 mg IV NOW STA
05/07/25 09:[address] Non Medication Order As Directed
Physician Order: PTT 6 hours after initial start of Heparin infusion
Above order entered?: Yes
05/07/25 10:10
Heparin [id number] Units/250 ml 25,000 units in 250 ml .ROUTE .STK-MED
05/07/25 10:14
PTT Urgent
Comment: Obtain baseline before beginning heparin infusion if not already collected
Troponin I Urgent
05/07/25 10:15
Heparin [id number] Units/250 ml 25,000 units in 250 ml IV PER PROTOCOL
Weight to be used for heparin protocol in kilograms (kg):: 76
Protocol:: Cardiac Tx/Acute Coronary
PTT Goal Range to be used:: PTT 73 to 111 seconds
Order type:: Initial
INITIAL Infusion Dose (UNITS/KG/hr) & then follow protocol:: 12 units/kg/hr
Infusion Dose in UNITS/hr & then follow protocol (UNITS/hr):: 900
INFUSION RATE in mL/hr & then follow protocol (mL/hr):: 9
PTT less than or equal to 64 seconds:: Increase rate by 200 units/hr (+ 2 mL/hr)
PTT 64.1 to 72.9 seconds:: Increase rate by 100 units/hr (+ 1 mL/hr)
PTT 73 to 111 seconds:: Target Range. No change in rate.
PTT 111.1 to 130.9 seconds:: Decrease rate by 100 units/hr (- 1 mL/hr)
PTT 131 to 199.9 seconds:: HOLD for 1 hr. Then decrease rate by 200 units/hr (- 2 mL/hr)
PTT greater than or equal to 200 seconds:: HOLD for 2 hrs & Notify Provider. Then decrease by 200 units/hr (-
2 mL/hr)
Lab follow-up:: Each change, PTT q6h until 2 consecutive are therapeutic. Then PTT
daily.
05/07/25 10:16
Heparin 4,000 units IV NOW STA
05/07/25 11:00
Flush (0.9% Sodium Chloride) [Flush (Nss)] See Dose Instructions IV PER PROTOCOL
05/07/25 11:58
Admit/Transfer Patient As Directed
Co-Sign Provider:
Level of Care: Inpatient admission
Assign to:: IVU
Physician / Group: Jocelyne
Diagnosis: ACS
Reason for Hospitalization: ACS
Expected length of stay greater than two midnights?: Yes
ELOS- Estimated Length of Stay in days: 2
I certify the patient meets the requirements for IP care: Yes
05/07/25 12:00
Nitroglycerin 100 mg/250 ml [Nitroglycerin Premix] 100 mg in 250 ml IV PER PROTOCOL
Currently infusing. Continue current dose and titrate:: Yes
Titrate to keep:: Other
Titrate to keep other:: SBP 150-160
Titrate by mcg/min:: 5 mcg/min, may increase by 10 mcg/min if dose > 20 mcg/min
Frequency of titrations (minutes):: every 3-5 minutes
Maximum dose in mcg/min:: 200
Begin to taper infusion when:: Remained at goal for 2hrs
Taper by mcg/min:: 5 mcg/min
Frequency of taper (minutes) if patient maintains goal:: 30
Taper to off?: Yes
If infusion off & no longer maintaining goal:: Contact Provider
05/07/25 12:04
Code Status As Directed
Resuscitation Status: Do not resuscitate
Reached after discussion with pt or family/Healthcare POA: Yes
05/07/25 12:05
DNR Bracelet Application ONCE
05/07/25 16:30
PTT Urgent
Comment: heparin GTT
Abnormal Lab Results
05/07/25 05/07/25
07:40 10:14
RBC 3.66 L 10^6/uL
(4.70-6.10)
Hgb 10.6 L g/dL
(13.0-18.0)
Hct 33.3 L %
(39.0-52.0)
MCHC 31.8 L g/dL
(33.0-37.0)
Abs Immat Gran (auto) 0.1 H 10^3/uL
(0-0.05)
Absolute Lymphs (auto) 1.1 L 10^3/uL
(1.2-3.4)
Absolute Monos (auto) 1.0 H 10^3/uL
(0.1-0.6)
Immature Gran % 1.1 H %
(0-0.5)
Lymphocytes % 15.0 L %
(20.5-51.1)
Monocytes % 12.9 H %
(1.7-9.3)
Glucose 177 H mg/dl
(70-99)
Alkaline Phosphatase 127 H U/L
(38-126)
Troponin I 0.059 H* ng/ml 0.068 H* ng/ml
05/07/25 07:40
05/07/25 07:40
Vital Signs
Initial and Last Documented VS:
Initial Vital Signs
Temp Pulse Resp BP Pulse Ox
98.1 F 100 22 181/102 99
05/07/25 07:34 05/07/25 07:34 05/07/25 07:34 05/07/25 07:34 05/07/25 07:34
Last Documented Vital Signs
Temp Pulse Resp BP Pulse Ox
98.1 F 86 21 196/97 99
05/07/25 07:34 05/07/25 12:30 05/07/25 12:30 05/07/25 12:30 05/07/25 11:15
MDM/Problems Addressed
MDM/Problems Addressed:
70-year-old male with significant cardiac history including CAD status post CABG and stenting with ischemic cardiomyopathy presenting for chest pain. Vital signs significant for hypertension.
On exam patient resting comfortably, no acute distress. Benign cardiac and pulmonary exam. EKG obtained, right bundle branch block without significant change from prior. However, patient does have significant history including recent admission
for NSTEMI with abnormal catheterization. Concern for persistent ACS and ischemia. Plan for laboratory analysis including troponin. Aspirin administered prior to arrival. Will continue to monitor
09:20 - Patient's troponin again elevated with concern for NSTEMI. Chest x-ray without acute cardiopulmonary disease. Patient is very hypertensive, will administer labetalol consult cardiology
10:10 -in discussion with cardiology, recommending again admission for cardiac monitoring.
*Pulse Oximetry
SaO2: 98
Oxygen Mode of Delivery: Room air
Patient hypoxic: no
*EKG
Interpreted by ED Provider?: Yes
EKG Intrepretation Date: 05/07/25
EKG Intrepretation Time: 08:15
Interpretation: abnormal
Comparison EKG: no changes (04/13/25)
Heart Rate: 96
Rate: normal
Rhythm: sinus
[place]: right axis deviation
Interval: normal interval
QRS Pattern: right bundle branch block
Ischemia: non-specific ST changes
*Critical Care Note
Total Time (30-74mins, 75-104mins- exclusive of procedures): Not Applicable
ED Attending Note
-
Portions of this chart may have been created with voice recognition software.� Occasional wrong word or��sound alike� substitutions may have occurred due to the inherent limitations of voice recognition software.
Discharge Plan
Departure
Patient Disposition: Admit
Date of Disposition: 05/07/25
Time of Disposition: 10:19
Presentation/result/management discussed w/ accepting MD/DO: Hospitalist
Patient with high blood pressure during this ER visit?: Yes
Condition: Fair
Discharge Problem:
Non-ST elevation DC (NSTEMI), Chest pain
[2025-05-07 08:33] LABS: Troponin I 0.059 ng/ml
[2025-05-07] MEDS: TRANDATE 20 MG IV (09:15)
[2025-05-07] MEDS: HEPARIN 4000 UNITS IV (10:15)
[2025-05-07] MEDS: HEPARIN 25000 UNITS/250 ML IV (10:24)
[2025-05-07 10:47] LABS: APTT 24.6 Sec (23.4-35.0)
[2025-05-07 10:55] LABS: Troponin I 0.068 ng/ml
--- NOTE | 2025-05-07 11:36 | CON.CAR ---
Addendum entered and electronically signed by Tab Woo MD 05/07/25 17:55:
Patient with extensive cardiac history, prior bypass and recurrent admissions with chest pain and low-grade troponin elevations to 2-3. Most recent hospital stay was in March, at which time he underwent cardiac catheterization showing stenosis in
distal OM beyond JONO anastomosis off GAR, felt to be extremely high risk for PCI, now admitted with chest pain again.
PMH/PSH/FH/SH: See below - patient currently resides at [facility] and is largely wheelchair-bound
Allergies/meds: As below
ROS: As below
Chronically ill, somewhat confused, disheveled with ecchymosis right eye and right side, 161/134, pulse 102, respirations 26, weight 76 kg
Afebrile, head neck exam, ecchymosis right eye, lungs relatively clear, regular rate and rhythm without obvious murmurs abdomen obese, Vogel or suprapubic tube in place, not much edema diminished pulses neuro grossly nonfocal
Chest x-ray: Cardiomegaly, COPD
ECG: Sinus rhythm, PACs, right bundle branch block, inferolateral ST depression
Hemoglobin 10.6, BUN and creatinine are 10 and 0.7, potassium is 7, proBNP is 576, troponin is 0.069
Impression:
As below per Nusrat Dinh. Reviewed in detail and agree, unless otherwise specified.
Plan:
He presents with recurrent chest discomfort and detectable troponin with chronic EKG changes, likely related to ischemia in the distribution of the obtuse marginal.
We will again review with interventional cardiology, but patient is very poor candidate for intervention and if his PCI becomes complicated it could jeopardize a very large portion of his myocardium predispose him to cardiogenic shock.
Best option may be to continue medications, using narcotics as needed to control pain. If obtuse marginal ever infarcts, he would likely have a reduction or elimination of angina.
Original Note:
Consultation
Consultation Request
Date/Time Consultation Requested: 05/07/2025
Date/Time Consultation Performed: 05/07/2025
Requesting Provider: Dr. Hoffmann in the ER
Performing Provider: Dr. Rojo
Reason for Consultation: Chest pain
Medical History
-
History of Present Illness:
Patient came to [facility] today with chest pain and cardiology is now consulted. Patient was admitted to the hospital 04/13/2025 until 04/18/2025 with chest pain and troponin peaked at 2.63. Patient has a longstanding h/o CAD and angina. During a
previous cath in 2019 his LAD is functionally occluded with bridging collaterals, the GAR to LAD was patent, the diagonals were jeopardized filling retrograde, the circumflex was occluded, and OM branch was filling via left to left collaterals, the
JONO off the GAR was patent and the RCA was nondominant with a 90% proximal stenosis. He was being medically managed, but this was problematic due to orthostasis. During last admission he had repeat cardiac cath 04/17/2025 that showed new
high-grade stenosis in the distal OM just beyond the JONO anastomosis, his case was discussed among interventional cardiology and it was felt that PCI of the OM could be attempted, but if a complication were to occur they would be limited treatment
options and patient instead was started on Ranexa 500 mg BID for ongoing attempts at medical management. Patient presents to the ER today complaining of chest pain from the moment he woke up this morning, he denies chest pain in the night. He has
a black eye on the right and bruising on his right arm, but he does not remember what happened.
PMH:
Recent admission for elevated Troponin and cardiac cath with progressive CAD 04/13/2025 until 04/18/2025
Chronic HFpEF
CAD
s/p CABG 1998 at [facility] with GAR to LAD and free JONO Y graft from GAR to OM
cath showed progression of otoe-[place] CAD however patient bypass grafts 12/2019
History of recovered ischemic cardiomyopathy, EF 50 to 55% by echo 11/2024
h/o NSVT
Chronic orthostatic hypotension
Sinus tachycardia
Paroxysmal atrial flutter
s/p ablation in 2017
Paroxysmal atrial fibrillation
diagnosed during 12/2019 admission without known recurrence
Not chronically anticoagulated due to patient's choice and low burden of atrial arrhythmia
PVD
h/o endovascular AAA repair and bilateral femoral artery endarterectomy and profundoplasty 07/2018
Type 2 diabetes
Hypertension
Hypercholesterolemia
Chronic right bundle-branch block
COPD on chronic supp O2, 3L
History of duodenal ulcer with microperforation in 2018
h/o daily ETOH use now abstinent
Former smoker
DNR
Past Medical History
Past Medical History: Other (in HPI)
Past Surgical History: Cardiac (CABG 1998, atrial flutter ablation 2017), Cholecystectomy, Tonsilectomy and Other (endovascular AAA repair 2016)
Social History
Tobacco: Former Smoker
Alcohol: None (he says he stopped drinking)
Drug: None
Personal: Single
Living: [facility]
Family History
Family History: CAD and Cancer (lung cancer)
Allergies / Home Medications
Allergy/AdvReac Type Severity Reaction Status Date / Time
lisinopril Allergy throat Verified 02/23/25 06:34
closes
�Medication �Instructions �Recorded �Confirmed �Type
albuterol sulfate 90 mcg/actuation 2 puff inhalation R Q6HPRN PRN SOB 07/02/23 05/07/25 History
aerosol inhaler
atorvastatin 80 mg tablet 80 mg PO DAILY High cholesterol 07/02/23 05/07/25 History
ipratropium 0.5 mg-albuterol 3 mg 3 ml inhalation R QIDPRN PRN SOB 07/02/23 05/07/25 History
(2.5 mg base)/3 mL nebulization
soln
pantoprazole 40 mg tablet,delayed 40 mg PO DAILY Gastrointestinal 07/02/23 05/07/25 History
release issue
tamsulosin 0.4 mg capsule 0.4 mg PO DAILY BPH 07/02/23 05/07/25 History
prednisone 10 mg tablet 10 mg PO DAILY Anti-inflammatory 09/10/23 05/07/25 Rx
#0 tabs
acetaminophen 325 mg tablet 650 mg PO Q4HPRN PRN mild 12/08/24 05/07/25 History
pain/fever
bisacodyl 10 mg rectal suppository 10 mg [place] DAILYPRN PRN if mom 12/08/24 05/07/25 History
ineffective
magnesium hydroxide 400 mg/5 mL 30 ml PO HSPRN PRN constipation 12/08/24 05/07/25 History
oral suspension (Milk of Magnesia)
fluticasone propionate 50 2 spray intranasal DAILYPRN PRN 02/23/25 05/07/25 History
mcg/actuation nasal allergies
spray,suspension
budesonide 0.5 mg/2 mL suspension 0.5 mg inhalation R BID copd 04/13/25 05/07/25 History
for nebulization
insulin aspart U-100 100 unit/mL 3 unit (0.03 mL) SC AC Diabetes #0 04/16/25 05/07/25 Rx
(3 mL) subcutaneous pen mL
lorazepam 0.5 mg tablet 0.5 mg PO TIDPRN PRN sleep/anxiety 04/16/25 05/07/25 Rx
#6 tabs
nitroglycerin 0.2 mg/hr 0.2 mg transdermal DAILY #0 ea 04/16/25 05/07/25 Rx
transdermal 24 hour patch
ranolazine 500 mg tablet,extended 500 mg PO BID Heart 04/16/25 05/07/25 Rx
release,12 hr disease/condition #60 tabs
ascorbic acid (vitamin C) 500 mg 500 mg PO DAILY Supplement #0 tabs 04/18/25 05/07/25 Rx
tablet (Vitamin C)
aspirin 81 mg chewable tablet 81 mg PO DAILY Blood clot 04/18/25 05/07/25 Rx
(Children's Aspirin) prevention/tx #1 tab
azithromycin 250 mg tablet 250 mg PO DAILY Lung/breathing 04/18/25 05/07/25 Rx
issues #0 tabs
bupropion HCl 300 mg 24 hr tablet, 300 mg PO DAILY Depression #0 tabs 04/18/25 05/07/25 Rx
extended release
carvedilol 6.25 mg tablet 6.25 mg PO BID Heart 04/18/25 05/07/25 Rx
disease/condition #0 tabs
dextromethorphan-guaifenesin 30 1 tab PO Q12H Congestion #0 tabs 04/18/25 05/07/25 Rx
mg-600 mg tablet extended
[id number] hr (Mucinex DM)
furosemide 20 mg tablet 20 mg PO MOWEFR Fluid 04/18/25 05/07/25 Rx
retention/Swelling #0 tabs
insulin glargine 100 unit/mL 7 unit (0.07 mL) SC HS Diabetes #0 04/18/25 05/07/25 Rx
subcutaneous solution (Lantus mL
U-100 Insulin)
melatonin 3 mg tablet 3 mg PO HS Sleep #0 tabs 04/18/25 05/07/25 Rx
polyethylene glycol 3350 17 gram 17 g PO DAILY Constipation #0 ea 04/18/25 05/07/25 Rx
oral powder packet
potassium chloride 20 mEq 20 meq PO DAILY Electrolyte 04/18/25 05/07/25 Rx
tablet,extended release(part/cryst) Repletion #0 tabs
spironolactone 25 mg tablet 12.5 mg (1/2 x 25 mg) PO DAILY 04/18/25 05/07/25 Rx
Heart disease/condition #0 tabs
acetaminophen 500 mg tablet 1,000 mg PO Q6H 05/07/25 05/07/25 History
(Tylenol Extra Strength)
sertraline 100 mg tablet 200 mg PO DAILY 05/07/25 05/07/25 History
sodium chloride 1 gram tablet 1,000 mg PO QID 05/07/25 05/07/25 History
Review of Systems
-
History Source: Patient
All other systems: Negative unless noted
Physical Exam
Vital Signs
Temp Pulse Resp BP Pulse Ox
98.1 F 86 24 211/101 98
05/07/25 07:34 05/07/25 09:00 05/07/25 07:37 05/07/25 09:15 05/07/25 08:16
GEN: NAD. AAOx3
HEENT: EOMI, right eye periorbital ecchymosis
LUNGS: RA. Clear anterolaterally
CV: Reg, S1/S2, 1/6 syst LSB, no gallop
ABD: soft, BS+, NT, ND
EXT: No edema B/L LE
NEURO: Gross non-focal
SKIN: No rash
Lab Results
05/07/25 07:40
05/07/25 07:40
Troponin I 0.068 ng/ml H* 05/07/25 10:14
Qbv-B-Uswmuaqcsir Pept 573 pg/ml 05/07/25 07:40
Impression / Plan
-
PCP: Dr. Pedroza
Cardiology: Dr. MILA Woo
Impression:
Presented with chest pain 05/07/25
Recent admission for elevated Troponin and cardiac cath with progressive CAD 04/13/2025 until 04/18/2025
HTN emergency
Chronic HFpEF
CAD
s/p CABG 1998 at [facility] with GAR to LAD and free JONO Y graft from GAR to OM
cath showed progression of otoe-[place] CAD however patient bypass grafts 12/2019
History of recovered ischemic cardiomyopathy, EF 50 to 55% by echo 11/2024
h/o NSVT
Chronic orthostatic hypotension
Sinus tachycardia
Paroxysmal atrial flutter
s/p ablation in 2017
Paroxysmal atrial fibrillation
diagnosed during 12/2019 admission without known recurrence
Not chronically anticoagulated due to patient's choice and low burden of atrial arrhythmia
PVD
h/o endovascular AAA repair and bilateral femoral artery endarterectomy and profundoplasty 07/2018
Type 2 diabetes
Hypertension
Hypercholesterolemia
Chronic right bundle-branch block
COPD on chronic supp O2, 3L
History of duodenal ulcer with microperforation in 2018
h/o daily ETOH use now abstinent
Former smoker
DNR
ECHO 09/06/23: Definity used, EF 45 to 50%, global hypokinesis, stage I diastolic dysfunction, mild MR, trace TR, PAP 25 to 30 mmHg
Echo 12/11/2024: EF 50 to 55%, no regional wall motion abnormalities, mild concentric LVH, no significant valvular disease
Echo 02/23/2025: EF 50%, mild to moderate concentric LVH, no significant valvular disease
Cath: 04/17/25: GAR-LAD patent, JONO Ygraft GAR to OM with 95% distal stenosis.
Plan:
-Patient came to [facility] today with chest pain and cardiology is now consulted. Patient was admitted to the hospital 04/13/2025 until 04/18/2025 with chest pain and troponin peaked at 2.63. Patient has a longstanding h/o CAD and angina. During a
previous cath in 2019 his LAD is functionally occluded with bridging collaterals, the GAR to LAD was patent, the diagonals were jeopardized filling retrograde, the circumflex was occluded, and OM branch was filling via left to left collaterals, the
JONO off the GAR was patent and the RCA was nondominant with a 90% proximal stenosis. He was being medically managed, but this was problematic due to orthostasis. During last admission he had repeat cardiac cath 04/17/2025 that showed new
high-grade stenosis in the distal OM just beyond the JONO anastomosis, his case was discussed among interventional cardiology and it was felt that PCI of the OM could be attempted, but if a complication were to occur they would be limited treatment
options and patient instead was started on Ranexa 500 mg BID for ongoing attempts at medical management. Patient presents to the ER today complaining of chest pain from the moment he woke up this morning, he denies chest pain in the night. He has
a black eye on the right and bruising on his right arm, but he does not remember what happened.
-ECG reviewed by me is SR and no acute ST changes
-Initial Troponin 0.059 and then 0.068. Will trend
-Patient does not have many options, PCI due to OM lesion being distal to JONO graft and ANAM grafts are prone to dissection and tortuosity and force will be required to deliver equipment which may increase this risk and if a complication occurs
there would be limited treatment options. The OM is not small but is also not comparable to the LAD in vascular territory or myocardium supplied.
-Will increase Ranexa to 1000 mg BID
-Nitro gtt being started in the ER
-Heparin gtt already started
-Outpatient dose of Coreg 6.25 mg BID should be continued as BP tolerates
-Outpatient dose of Lasix 20 mg MWF should be continued
-Outpatient dose of spironolactone 12.5 mg daily should be continued
-Patient reports missing his usual morning BP meds today, but concerned that HTN emergency is due to ischemia as opposed to HTN being the cause of his recurrent chest pain
-Outpatient dose of aspirin 81 mg daily has been continued
--- NOTE | 2025-05-07 12:08 | HPS.HSE ---
Family Physician
-
Family Physician: Renan Pedroza,
Chief Complaint
-
Chest pain
History of Present Illness
Patient is a 70 years old custodial resident known to our cardiology service with complicated coronary artery disease recent hospitalization with acute coronary syndrome prompted to catheterization on 04/13/2025 with findings of JONO�Y graft JONO
to OM 95% distal stenosis. At that time patient intervention thought to be high risk, and patient was discharged with optimized medical treatment particularly with addition of Ranexa.
Patient presents today with acute onset of chest pain waking him up from sleep. He complains of mild shortness of breath. He denies any respiratory symptoms and does not have any complaints suggestive of infection.
On arrival to the emergency room patient found to be hypertensive with systolic blood pressure over 200.
Additional workup was relevant for ECG without any evidence of ischemia and mild elevated troponins at 0.5.
Patient was treated with nitroglycerin with relief of pain and initiated on heparin drip.
Later after dose of labetalol blood pressure remains elevated at 195 systolic. Patient being initiated on nitroglycerin drip.
Medical History
Past Medical History
Past Medical History: Reports CAD, COPD and IDDM
Past Surgical History: Reports Other (CABG)
Social History
Tobacco: Former Smoker
Drug: None
Personal: Single
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
Family History
Family History: Not pertinent
Allergies / Home Medications
Allergies reflects when Allergies were last updated in [facility].
Home Medications with original date entered in [facility]
Allergy/Medication List:
Allergies
Allergy/AdvReac Type Severity Reaction Status Date / Time
lisinopril Allergy throat Verified 02/23/25 06:34
closes
Home Medications
albuterol sulfate 90 mcg/actuation aerosol inhaler 2 puff inhalation R Q6HPRN PRN SOB 07/02/23
atorvastatin 80 mg tablet 80 mg PO DAILY High cholesterol 07/02/23
ipratropium 0.5 mg-albuterol 3 mg (2.5 mg base)/3 mL nebulization soln 3 ml inhalation R QIDPRN PRN SOB 07/02/23
pantoprazole 40 mg tablet,delayed release 40 mg PO DAILY Gastrointestinal issue 07/02/23
tamsulosin 0.4 mg capsule 0.4 mg PO DAILY BPH 07/02/23
prednisone 10 mg tablet 10 mg PO DAILY Anti-inflammatory #0 tabs 09/10/23
acetaminophen 325 mg tablet 650 mg PO Q4HPRN PRN mild pain/fever 12/08/24
bisacodyl 10 mg rectal suppository 10 mg [place] DAILYPRN PRN if mom ineffective 12/08/24
magnesium hydroxide 400 mg/5 mL oral suspension (Milk of Magnesia) 30 ml PO HSPRN PRN constipation 12/08/24
fluticasone propionate 50 mcg/actuation nasal spray,suspension 2 spray intranasal DAILYPRN PRN allergies 02/23/25
budesonide 0.5 mg/2 mL suspension for nebulization 0.5 mg inhalation R BID copd 04/13/25
insulin aspart U-100 100 unit/mL (3 mL) subcutaneous pen 3 unit (0.03 mL) SC AC Diabetes #0 mL 04/16/25
lorazepam 0.5 mg tablet 0.5 mg PO TIDPRN PRN sleep/anxiety #6 tabs 04/16/25
nitroglycerin 0.2 mg/hr transdermal 24 hour patch 0.2 mg transdermal DAILY #0 ea 04/16/25
ranolazine 500 mg tablet,extended release,12 hr 500 mg PO BID Heart disease/condition #60 tabs 04/16/25
ascorbic acid (vitamin C) 500 mg tablet (Vitamin C) 500 mg PO DAILY Supplement #0 tabs 04/18/25
aspirin 81 mg chewable tablet (Children's Aspirin) 81 mg PO DAILY Blood clot prevention/tx #1 tab 04/18/25
azithromycin 250 mg tablet 250 mg PO DAILY Lung/breathing issues #0 tabs 04/18/25
bupropion HCl 300 mg 24 hr tablet, extended release 300 mg PO DAILY Depression #0 tabs 04/18/25
carvedilol 6.25 mg tablet 6.25 mg PO BID Heart disease/condition #0 tabs 04/18/25
dextromethorphan-guaifenesin 30 mg-600 mg tablet extended [id number] hr (Mucinex DM) 1 tab PO Q12H Congestion #0 tabs 04/18/25
furosemide 20 mg tablet 20 mg PO MOWEFR Fluid retention/Swelling #0 tabs 04/18/25
insulin glargine 100 unit/mL subcutaneous solution (Lantus U-100 Insulin) 7 unit (0.07 mL) SC HS Diabetes #0 mL 04/18/25
melatonin 3 mg tablet 3 mg PO HS Sleep #0 tabs 04/18/25
polyethylene glycol 3350 17 gram oral powder packet 17 g PO DAILY Constipation #0 ea 04/18/25
potassium chloride 20 mEq tablet,extended release(part/cryst) 20 meq PO DAILY Electrolyte Repletion #0 tabs 04/18/25
spironolactone 25 mg tablet 12.5 mg (1/2 x 25 mg) PO DAILY Heart disease/condition #0 tabs 04/18/25
acetaminophen 500 mg tablet (Tylenol Extra Strength) 1,000 mg PO Q6H 05/07/25
sertraline 100 mg tablet 200 mg PO DAILY 05/07/25
sodium chloride 1 gram tablet 1,000 mg PO QID 05/07/25
Review of Systems
-
A 12 point ROS was completed and negative except as noted: Yes
Physical Exam
Vital Signs
Vital Signs
Temp Pulse Resp BP Pulse Ox
98.1 F 86 24 211/101 98
05/07/25 07:34 05/07/25 09:00 05/07/25 07:37 05/07/25 09:15 05/07/25 08:16
Physical Exam
General: Well Developed, Well Nourished and No Apparent Distress
HEENT: NormoCephalic, Moist mucous membranes and Atraumatic
Respiratory: Clear
Cardiac: S1/S2 and Regular Rhythm; No Murmur or Rub
GI: Soft, Non Tender, Non Distended and Normal Bowel Sounds; No Organomegaly
Rectal: Deferred by Provider
Genito-urinary: Vogel
Musculoskeletal: No Clubbing, No Cyanosis and No Edema
Skin: No Rash
Neuro: Nonfocal/grossly intact
Laboratory Results
-
05/07/25 07:40
05/07/25 07:40
Laboratory Results
APTT 24.6 Sec (23.4-35.0) 05/07/25 10:14
Total Bilirubin 0.4 mg/dl (0.2-1.3) 05/07/25 07:40
AST 19 U/L (17-59) 05/07/25 07:40
ALT 20 U/L (0-50) 05/07/25 07:40
Alkaline Phosphatase 127 U/L (38-126) H 05/07/25 07:40
Troponin I 0.068 ng/ml H* 05/07/25 10:14
Impression/Plan
-
IMPRESSION:
Presentation with chest pain
Acute coronary syndrome
Non-ST elevation DC.
Hypertensive urgency
Other conditions:
CAD.
Ischemic cardiomyopathy
Chronic CHF preserved EF
History of NSVT
Chronic orthostatic hypotension.
Paroxysmal atrial fibrillation
� Status post ablation 2017
Chronic RBBB
Not on anticoagulation.
PAD
� History of endovascular AAA repair and bilateral femoral artery enterectomy and profundoplasty 08/11
IDDM
COPD
Chronic hypoxic respiratory failure on home O2 at 2 L per
BPH with bladder outlet obstruction indwelling Vogel catheter on admission
History of daily alcohol use
Former smoker
PLAN:
Acute coronary syndrome
Non-Q wave DC
Presents along with hypertensive urgency
Chest pain relieved with introduction of nitroglycerin
Initiated on IV heparin and nitroglycerin drip in the ED
Echo 02/23/2025: EF 50%, mild to moderate concentric LVH, no significant valvular disease
Cath: 04/17/25: GAR-LAD patent, JONO Ygraft GAR to OM with 95% distal stenosis.
Represents high risk for endovascular intervention
Recently discharged with attempt to optimize medical treatment and addition of Ranexa
Continue Coreg 6.25 twice daily and Ranexa 500 mg twice daily
Cardiology evaluation for further recommendations
Chronic CHF preserved EF
Ischemic cardiomyopathy
Volume status compensated.
On furosemide 20 mg Wednesday, spironolactone
Chronic COPD
Chronic hypoxic respiratory failure on home O2 2 L
Obstructive sleep apnea not on CPAP.
Stable respiratory status
Continue prednisone at the maintenance dose. Continue Zithromax
Continue budesonide
IDDM.
Continue insulin Lantus/aspart per
Basal bolus protocol.
Update hemoglobin A1c
BPH with chronic bladder outlet obstruction
Vogel catheter present on admission. Placed about 4 weeks prior to this hospitalization and exchanged 2 weeks prior as per patient
Continue Flomax
CODE STATUS DNR.
DVT prophylaxis: Placed on IV heparin on admission for ACS
[2025-05-07] MEDS: NITROGLYCERIN PREMIX 250 IV (15:05)
[2025-05-07] MEDS: LASIX 20 MG PO (17:13)
[2025-05-07] MEDS: LOW STRENGTH ASPIRIN 81 MG PO (17:14)
[2025-05-07] MEDS: TYLENOL 1000 MG PO ×2 (17:14→23:14)
[2025-05-07 17:26] LABS: Glucose - Point of Care 167 mg/dl (70-99)
[2025-05-07] MEDS: SODIUM CHLORIDE 1 GRAM PO ×2 (17:28→22:52)
[2025-05-07] MEDS: NOVOLOG FLEXPEN-LOW RESISTANCE 1 UNITS SC (17:29)
[2025-05-07] MEDS: NOVOLOG FLEXPEN 3 UNITS SC (17:29)
[2025-05-07 17:41] LABS: Troponin I 0.069 ng/ml
[2025-05-07 17:57] LABS: APTT 36.5 Sec (23.4-35.0)
[2025-05-07] MEDS: DUONEB 3 ML INH (19:10)
[2025-05-07] MEDS: PULMICORT 0.5 MG INH (19:10)
--- NOTE | 2025-05-07 19:11 | PTCARENOTE ---
pt oriented to unit. pt is sr w/ a first on tele, vss. heparin and nitro gtt running per protocol, see documentation. pt offers no complaints at this time. pt educated on plan of care for the evening. bed alarm placed due to pts forgetfulness. pt
resting in bed comfortably.
[2025-05-07] MEDS: COREG 6.25 MG PO (20:37)
[2025-05-07] MEDS: RANEXA EXTENDED RELEASE 500 MG PO (20:37)
[2025-05-07] MEDS: MUCINEX 600 MG PO (20:37)
[2025-05-07 21:48] LABS: Glucose - Point of Care 240 mg/dl (70-99)
[2025-05-07] MEDS: MELATONIN 3 MG PO (22:52)
[2025-05-07] MEDS: LANTUS 0.07 UNITS SC (22:52)
[2025-05-07] MEDS: ATIVAN 0.5 MG PO (23:15)
[2025-05-08] VITALS (26 sets, daily range): BP systolic 93–230; BP diastolic 60–135; BMI 25.5; BMI 23.8
[2025-05-08 01:33] LABS: APTT 51.0 Sec (23.4-35.0)
[2025-05-08 01:41] LABS: Troponin I 0.061 ng/ml
--- NOTE | 2025-05-08 01:45 | PTCARENOTE ---
Received pt at change of shift resting in bed. SR to ST with 1st degree on tele, HR in the 100's. Denies any CP or SOB. Heparin and nitro gtt infusing per protocol. SBP 115's-160. Ativan administered per pt request--see DEC. AOx2, pt disoriented to
place. Fall risk precautions maintained. Bed alarm on and audible. pt informed to call staffing executive with any questions/concerns or for assistance ambulating. pt calls appropriately. Call kuhn within reach.
[2025-05-08] MEDS: TYLENOL 1000 MG PO ×4 (06:13→22:27)
[2025-05-08] MEDS: DUONEB 3 ML INH ×2 (07:48→18:17)
[2025-05-08] MEDS: PULMICORT 0.5 MG INH ×2 (07:48→18:17)
[2025-05-08 08:22] LABS: Glucose - Point of Care 140 mg/dl (70-99)
[2025-05-08] MEDS: NOVOLOG FLEXPEN-LOW RESISTANCE SC (08:23)
[2025-05-08 08:35] LABS: Hematocrit 33.3 % (39.0-52.0); Hemoglobin 10.9 g/dL (13.0-18.0); Mean Corp Hgb Conc. 32.7 g/dL (33.0-37.0); Mean Corpuscular Volume 87.9 fL (80.0-94.0); Nucleated Red Blood Cells % 0 % (-); Platelet Count 243 10^3/uL (130-400); Red Cell Dist. Width 14.2 % (11.5-14.5)
[2025-05-08 08:43] LABS: APTT 86.2 Sec (23.4-35.0)
[2025-05-08] MEDS: LIPITOR 80 MG PO (08:49)
[2025-05-08] MEDS: KCL 20 MEQ PO (08:49)
[2025-05-08] MEDS: PROTONIX 40 MG PO (08:49)
[2025-05-08] MEDS: FLOMAX 0.4 MG PO (08:49)
[2025-05-08] MEDS: RANEXA EXTENDED RELEASE 500 MG PO ×2 (08:49→21:16)
[2025-05-08] MEDS: MIRALAX 17 GRAMS PO (08:49)
[2025-05-08] MEDS: DELTASONE 10 MG PO (08:49)
[2025-05-08] MEDS: VITAMIN C 500 MG PO (08:49)
[2025-05-08] MEDS: SODIUM CHLORIDE 1 GRAM PO ×4 (08:49→21:16)
[2025-05-08] MEDS: COREG 6.25 MG PO ×2 (08:49→21:16)
[2025-05-08] MEDS: MUCINEX 600 MG PO ×2 (08:49→21:16)
[2025-05-08] MEDS: ALDACTONE 12.5 MG PO (08:49)
[2025-05-08] MEDS: ZOLOFT 200 MG PO (08:49)
[2025-05-08] MEDS: LOW STRENGTH ASPIRIN 81 MG PO (08:49)
[2025-05-08] MEDS: ZITHROMAX 250 MG PO (08:49)
[2025-05-08] MEDS: WELLBUTRIN XL (24 hour extended release) 300 MG PO (08:53)
[2025-05-08 09:29] LABS: Blood Urea Nitrogen 13 mg/dl (9-20); Calcium 9.1 mg/dl (8.4-10.2); Carbon Dioxide 30 mmol/L (22-30); Chloride 104 mmol/L (98-107); Estimated Creatinine Clearance 109 ml/min; Glucose 143 mg/dl (70-99); Potassium 4.1 mmol/L (3.5-5.1); Sodium 136 mmol/L (135-145); eGFR > 60.00
[2025-05-08] MEDS: NOVOLOG FLEXPEN 3 UNITS SC ×3 (10:22→18:01)
[2025-05-08] MEDS: HEPARIN 25000 UNITS/250 ML IV (10:31)
--- NOTE | 2025-05-08 10:44 | W.PN.HOSP.TC ---
Today's Communication/Plan
-
Chest pain free since admission.
Cardiac markers flat
Stop heparin and nitroglycerin drips
Reassess BP
Ranexa increased to 1 g twice a day
If BP remains on the higher level consider higher dose of Coreg
Assessment / Plan
Assessment / Plan
IMPRESSION:
Presentation with chest pain
Acute coronary syndrome
Non-ST elevation [place].
Hypertensive urgency
Other conditions:
CAD.
Ischemic cardiomyopathy
Chronic CHF preserved EF
History of NSVT
Chronic orthostatic hypotension.
Paroxysmal atrial fibrillation
� Status post ablation 2017
Chronic RBBB
Not on anticoagulation.
PAD
� History of endovascular AAA repair and bilateral femoral artery enterectomy and profundoplasty 08/11
IDDM
COPD
Chronic hypoxic respiratory failure on home O2 at 2 L per
BPH with bladder outlet obstruction indwelling Vogel catheter on admission
History of daily alcohol use
Former smoker
PLAN:
Acute coronary syndrome
Non-Q wave [place]
Presents along with hypertensive urgency
Chest pain relieved with introduction of nitroglycerin
Initiated on IV heparin and nitroglycerin drip in the ED
Echo 02/23/2025: EF 50%, mild to moderate concentric LVH, no significant valvular disease
Cath: 04/17/25: GAR-LAD patent, JONO Ygraft GAR to OM with 95% distal stenosis.
Represents high risk for endovascular intervention
Recently discharged with attempt to optimize medical treatment and addition of Ranexa
Continue Coreg 6.25 twice daily and Ranexa 500 mg twice daily
Chest pain free since admission.
Cardiac markers flat
Stop heparin and nitroglycerin drips
Reassess BP
Ranexa increased to 1 g twice a day
If BP remains on the higher level consider higher dose of Coreg
Chronic CHF preserved EF
Ischemic cardiomyopathy
Volume status compensated.
On furosemide 20 mg Wednesday, spironolactone
Chronic COPD
Chronic hypoxic respiratory failure on home O2 2 L
Obstructive sleep apnea not on CPAP.
Stable respiratory status
Continue prednisone at the maintenance dose. Continue Zithromax
Continue budesonide
IDDM.
Continue insulin Lantus/aspart per
Basal bolus protocol.
Update hemoglobin A1c
BPH with chronic bladder outlet obstruction
Vogel catheter present on admission. Placed about 4 weeks prior to this hospitalization and exchanged 2 weeks prior as per patient
Continue Flomax
CODE STATUS DNR.
DVT prophylaxis: Placed on IV heparin on admission for ACS
Anticipated Discharge: Within 24 hours
Subjective/Interval History
-
Date of Service: May 08, 2025
Objective Data
-
Labs:
Laboratory Results
05/08/25 05/08/25 05/08/25
00:58 08:21 15:00
WBC 8.3
Hgb 10.9 L
Hct 33.3 L
Plt Count 243
APTT 51.0 H 86.2 H Pending
Sodium 136
Potassium 4.1
Chloride 104
Carbon Dioxide 30
BUN 13
Creatinine 0.6 L
Glucose 143 H
Calcium 9.1
Vital Signs:
Vital Signs
Temp Pulse Resp BP Pulse Ox
97.3 F 96 18 114/81 96
05/08/25 08:03 05/08/25 08:15 05/08/25 08:03 05/08/25 08:00 05/08/25 08:03
I&O
05/07/25 05/08/25 05/09/25
06:59 06:59 06:59
Intake Total 522 / 522
Output Total 1375 / 1375
Balance -853 / -853
Physical Exam
-
General: Well Developed, Well Nourished, No Apparent Distress and Appears Chronically Ill
HEENT: Normocephalic, Atraumatic, Moist Mucous Membranes, Anicteric and Oxygen
Respiratory: Non Labored Respirations and Decreased Breath Sounds; Negative Accessory Resp Muscle Use
Cardiac: Regular Rhythm and S1/S2; Negative Murmur, Rub, JVD or Gallop
GI: Soft, Nontender, Nondistended and Normal Bowel Sounds
Musculoskeletal: No Clubbing, No Cyanosis and No Edema
Skin: Warm, Dry and Normal Turgor; Negative Rash
Neuro: AO x 3 and Nonfocal/Grossly Intact; Negative Tremors
Psych: Calm
--- NOTE | 2025-05-08 12:03 | PN.CDI ---
CDI
- -
CDI:
Physician Documentation Request
Admit Date: 05/07/25 12:16
Dear Doctor Jocelyne,
Patient presented with chest pain/NSTEMI
BP on arrival 181/102 , 192/101 , 206/112, 211/101
Hospitalist progress notes include a diagnosis of hypertensive urgency.
Cardiology 'hypertensive emergency'
In an attempt to clarify potentially conflicting documentation, please clarify the type of hypertension :
Hypertensive Emergency - B/P is severely elevated (systolic > or = to 180 or diastolic > or = to 110) but can occur at lower levels especially in patients who did not previously have high B/P. There is usually associated organ damage. Symptoms may
include: memory loss, LOC, CVA, ME, angina, renal failure, pulmonary edema. Generally requires more aggressive treatment and a hospitalization.
Hypertensive Urgency - B/P is severely elevated (systolic > or = to 180 or diastolic > or = to 110) but there is no associated organ damage. Symptoms may include: headache, shortness of breath, nosebleeds, severe anxiety. Treatment usually consists
of addition to or adjusting of oral medications and does not generally necessitate hospitalization.
Other (please specify)
Use of terms such as suspected, likely, concern for, or probable (associated with a specific diagnosis that is being evaluated, monitored, or treated as if it exists) are acceptable and can be coded in the inpatient setting, when documented at the
time of discharge.
Thank you,
Johanne Fontana RN, BSN
CDI Specialist
tiger text
Please use your independent medical judgment in providing your response.
[2025-05-08 13:00] LABS: Glucose - Point of Care 238 mg/dl (70-99)
--- NOTE | 2025-05-08 13:07 | CM ---
Reviewed chart. Met with Mr. Bernard to review discharge plans. He states prior to admission he resides at [facility]. He states prior to admission he ambulates with a single point cane or walker depending how he is feeling. He
states the staff assist with adls. He states his plan is to return to [facility]. Telephone call to [facility]missions to confirm ability to accept back and check on bed hold status. He has a fifteen day
medical assistance bed hold. The telephone number for report is ([phone]) and fax number is ([phone]) Medical work-up in progress. The discharge plan is to return to [facility] when medically stable.
--- NOTE | 2025-05-08 13:14 | W.PN.CARDCBS ---
Addendum entered and electronically signed by Kris Rojo MD 05/08/25 13:47:
I saw and examined the patient.
The RESIDENTIAL DOOR UNIT INSTALLER or PA's note was reviewed and I agree with the note.
Comment: General: Well developed, well nourished in NAD.
Neck: Supple, no JVD, HJR, carotids +2 B/L, no bruits bilaterally.
Heart: Non displaced PMI, RRR, no murmurs, No S3, S4, no rubs.
Lungs: Scattered rhonchi
Extremities: No clubbing, cyanosis or edema bilaterally.
Neuro: Grossly nonfocal, awake, alert and oriented x3.
No further chest pain. Will stop IV nitro and IV heparin. Increase Ranexa. Continue medical management of CAD. Might consider increasing Coreg which might help with blood pressure as well. Discussed with primary service
Original Note:
Today's Communication / Plan
-
attempting med mgmt of CAD
increased ranexa
stop IV nitro and IV heparin
consider increasing coreg if BP allows
consider benefit of plavix
ambulate
Impression / Plan
-
PCP: Dr. Pedroza
Cardiology: Dr. MILA Woo
Impression:
Presented with chest pain 05/07/25
Recent admission for elevated Troponin and cardiac cath with progressive CAD 04/13/2025 until 04/18/2025
HTN emergency
Elevated troponin, suspected nonischemic myocardial injury
Chronic HFpEF
CAD
s/p CABG 1998 at [facility] with GAR to LAD and free JONO Y graft from GAR to OM
cath showed progression of [place] CAD however patient bypass grafts 12/2019
History of recovered ischemic cardiomyopathy, EF 50 to 55% by echo 11/2024
h/o NSVT
Chronic orthostatic hypotension
Sinus tachycardia
Paroxysmal atrial flutter
s/p ablation in 2017
Paroxysmal atrial fibrillation
diagnosed during 12/2019 admission without known recurrence
Not chronically anticoagulated due to patient's choice and low burden of atrial arrhythmia
PVD
h/o endovascular AAA repair and bilateral femoral artery endarterectomy and profundoplasty 07/2018
Type 2 diabetes
Hypertension
Hypercholesterolemia
Chronic right bundle-branch block
COPD on chronic supp O2, 3L
History of duodenal ulcer with microperforation in 2018
h/o daily ETOH use now abstinent
Former smoker
DNR
ECHO 09/06/23: Definity used, EF 45 to 50%, global hypokinesis, stage I diastolic dysfunction, mild MR, trace TR, PAP 25 to 30 mmHg
Echo 12/11/2024: EF 50 to 55%, no regional wall motion abnormalities, mild concentric LVH, no significant valvular disease
Echo 02/23/2025: EF 50%, mild to moderate concentric LVH, no significant valvular disease
Cath 04/17/25: GAR-LAD patent, JONO Ygraft GAR to OM with 95% distal stenosis.
Plan:
- medically complex
- He had recent admission 03/2025 for chest pain and had cath with new OM stenosis, felt to be culprit. This was medically managed as Access to OM was through GAR then to JONO, and any intervention was felt to be high risk due to this. If a
complication to GAR were to occur, he would have very limited treatment options. He was started on Ranexa 500 mg twice daily. Patient now presents back to [facility] with recurrent chest pain and elevated blood pressure.
- unclear if HTN secondary to missed OP meds or due to ischemia
- trops relatively flat in 0.06 range
- was on IV heparin and IV nitro and CP free overnight. both now stopped.
- ranexa increased to 1000mg BID
- SR/ST on review of tele. continue coreg, consider increasing dose as BP allows. also has history of orthostasis
- continue OP lasix 20mg MWF and spironolactone 12.5mg daily
- Outpatient dose of aspirin 81 mg daily has been continued. consider benefit of addition of plavix to regimen
- ambulate
Progress Note - Base Cloth Inspector
Subjective
Date of Service: May 08, 2025
chest pain free. no SOB
Objective
Labs:
05/08/25 08:21
05/08/25 08:21
Labs
Hgb 10.9 g/dL (13.0-18.0) L 05/08/25 08:21
Hct 33.3 % (39.0-52.0) L 05/08/25 08:21
Plt Count 243 10^3/uL (130-400) 05/08/25 08:21
APTT Cancelled 05/08/25 15:00
Sodium 136 mmol/L (135-145) 05/08/25 08:21
Potassium 4.1 mmol/L (3.5-5.1) 05/08/25 08:21
BUN 13 mg/dl (9-20) 05/08/25 08:21
Creatinine 0.6 mg/dL (0.7-1.3) L 05/08/25 08:21
Glucose 143 mg/dl (70-99) H 05/08/25 08:21
Troponins
05/07/25 05/07/25 05/07/25
07:40 10:14 17:02
Troponin I 0.059 H* 0.068 H* 0.069 H*
05/08/25
00:58
Troponin I 0.061 H*
Vital Signs and I&O:
Vital Signs
Temp Pulse Resp BP Pulse Ox
98.5 F 96 18 114/81 96
05/08/25 11:41 05/08/25 08:15 05/08/25 11:41 05/08/25 08:00 05/08/25 11:41
Vital Signs
Temp Pulse Resp BP Pulse Ox
98.5 F 96 18 114/81 96
05/08/25 11:41 05/08/25 08:15 05/08/25 11:41 05/08/25 08:00 05/08/25 11:41
Intake & Output
05/06/25 05/07/25 05/08/25 05/09/25
07:59 07:59 07:59 07:59
Intake Total 522 / 522
Output Total 1375 / 1375
Balance -853 / -853
Physical Exam
Physical Exam
GEN: No distress, awake, alert, oriented x3
HEENT: supple, anicteric, mmm, eomi
LUNGS: CTA B/L, no wheezes/rales
CV: Reg, S1/S2, no murmur
ABD: soft, BS+, NT/ND
EXT: No cyanosis, clubbing, edema
NEURO: Gross non-focal
SKIN: Warm, pink, dry. No rash
[2025-05-08] MEDS: NOVOLOG FLEXPEN-LOW RESISTANCE 2 UNITS SC (14:01)
[2025-05-08 17:24] LABS: Glucose - Point of Care 267 mg/dl (70-99)
[2025-05-08] MEDS: NOVOLOG FLEXPEN-LOW RESISTANCE 3 UNITS SC (18:02)
--- NOTE | 2025-05-08 18:39 | PTCARENOTE ---
Pt ambulatory in room w/ RW and assist x1. Pt has no complaints CP/discomfort. Tele- SR w/ BBBC. Plan of care reviewed w/ pt and verbalizes understanding. Currently OOB in chair; call bam w/in reach.
[2025-05-08 21:16] LABS: Glucose - Point of Care 240 mg/dl (70-99)
[2025-05-08] MEDS: MELATONIN 3 MG PO (21:16)
[2025-05-08] MEDS: LANTUS 0.07 UNITS SC (21:16)
[2025-05-08] MEDS: ATIVAN 0.5 MG PO (21:18)
--- NOTE | 2025-05-08 22:37 | PTCARENOTE ---
Pt c/o CP 07/04 @ 2200. EKG done NTG sl x1 f/b NTG gtt initiated at 10 mcg/min and titrated as needed for bp control and cp. Augustina BURRIS @ bedside to [facility]. See vital sign flowsheet and MAR for details. At time of this note chest pain free. Will
continue to watch pt closely. Tylenol given for Headache.
[2025-05-09] VITALS (28 sets, daily range): BP systolic 92–185; BP diastolic 62–109
--- NOTE | 2025-05-09 00:06 | W.PN.UPDATE ---
Update Note
Progress Note Update
-@ 22:08 came in urgently to eval pt for 07/04 CP 'feels like elephant pushing on chest' and some jaw discomfort with BP 203/111, hr 97, pOx 97 on 2L. ECG with worse ST depressions V3-V6 comparing to ECG on 05/07. Recent Cath 04/17/25 with patent
Maier-Lad, patent Precious (y-graft off Maeir) to OM. There was new 95% stenosis in OM just beyond Precious anastomosis. Pt is treated medically for CAD. iv Nitro and Heparin dcd 05/08 and Ranexa was started.
-gave 1 sl Nitro and re-started Nitro drip. BP gradually decreased to 125/84. CP resolved. He is not wheezing b/l. Will increase Coreg to 12.5 bid and start Imdur 30 qd.
-discussed with Dr. Talavera
[2025-05-09] MEDS: ROXICODONE 2.5 MG PO (03:43)
[2025-05-09] MEDS: TYLENOL 1000 MG PO ×4 (06:10→22:26)
[2025-05-09 07:33] LABS: Glucose - Point of Care 198 mg/dl (70-99)
[2025-05-09] MEDS: PULMICORT 0.5 MG INH ×2 (08:08→19:17)
[2025-05-09] MEDS: DUONEB 3 ML INH (08:08)
[2025-05-09] MEDS: VITAMIN C 500 MG PO (08:19)
[2025-05-09] MEDS: IMDUR (EXTENDED RELEASE) 30 MG PO (08:19)
[2025-05-09] MEDS: RANEXA EXTENDED RELEASE 500 MG PO (08:19)
[2025-05-09] MEDS: PROTONIX 40 MG PO (08:19)
[2025-05-09] MEDS: MUCINEX 600 MG PO ×2 (08:19→20:07)
[2025-05-09] MEDS: SODIUM CHLORIDE 1 GRAM PO ×4 (08:19→22:26)
[2025-05-09] MEDS: COREG 12.5 MG PO ×2 (08:19→20:07)
[2025-05-09] MEDS: ALDACTONE 12.5 MG PO (08:20)
[2025-05-09] MEDS: ZITHROMAX 250 MG PO (08:20)
[2025-05-09] MEDS: LOW STRENGTH ASPIRIN 81 MG PO (08:20)
[2025-05-09] MEDS: FLOMAX 0.4 MG PO (08:20)
[2025-05-09] MEDS: KCL 20 MEQ PO (08:20)
[2025-05-09] MEDS: LIPITOR 80 MG PO (08:20)
[2025-05-09] MEDS: ZOLOFT 200 MG PO (08:25)
[2025-05-09] MEDS: DELTASONE 10 MG PO (08:26)
[2025-05-09] MEDS: WELLBUTRIN XL (24 hour extended release) 300 MG PO (08:26)
[2025-05-09] MEDS: NOVOLOG FLEXPEN 3 UNITS SC ×3 (08:30→17:36)
[2025-05-09] MEDS: NOVOLOG FLEXPEN-LOW RESISTANCE 1 UNITS SC ×2 (08:31→12:51)
[2025-05-09] MEDS: LASIX 20 MG PO (08:41)
[2025-05-09] MEDS: MIRALAX PO (08:44)
--- NOTE | 2025-05-09 11:19 | W.PN.CARDCBS ---
Addendum entered and electronically signed by Evin Pulido MD 05/09/25 11:32:
I saw and examined the patient.
The Ice Handler's note was reviewed and I agree with the note.
Comment:
GEN: No distress, awake, Ox3
HEENT: supple, anicteric, mmm
LUNGS: CTA, no wheezes/rales
CV: Reg, S1/S2, 1/6 syst LSB, no gallop
ABD: soft, BS+, NT/ND
EXT: No edema
NEURO: Gross non-focal
SKIN: No rash
Plan:
Challenging case. Will review films with interventional radiology to discuss other possible options, but for now we will continue medical therapy.
Add Plavix to aspirin. Continue Ranexa 1000 mg p.o. twice daily.
Increase Coreg to 12.5 mg p.o. twice daily. Continue Imdur 30 mg daily.
He is now back off IV nitroglycerin. Long-term prognosis is poor.
Original Note:
Today's Communication / Plan
-
Uptitration of antianginal regimen
Add Plavix
Impression / Plan
-
PCP: Dr. Pedroza
Cardiology: Dr. MILA Woo
Impression:
Presented with chest pain 05/07/25
Recent admission for elevated Troponin and cardiac cath with progressive CAD 04/13/2025 until 04/18/2025
HTN emergency
Elevated troponin, suspected nonischemic myocardial injury
Chronic HFpEF
CAD
s/p CABG 1998 at [facility] with GAR to LAD and free JONO Y graft from GAR to OM
cath showed progression of [place] CAD however patient bypass grafts 12/2019
History of recovered ischemic cardiomyopathy, EF 50 to 55% by echo 11/2024
h/o NSVT
Chronic orthostatic hypotension
Sinus tachycardia
Paroxysmal atrial flutter
s/p ablation in 2017
Paroxysmal atrial fibrillation
diagnosed during 12/2019 admission without known recurrence
Not chronically anticoagulated due to patient's choice and low burden of atrial arrhythmia
PVD
h/o endovascular AAA repair and bilateral femoral artery endarterectomy and profundoplasty 07/2018
Type 2 diabetes
Hypertension
Hypercholesterolemia
Chronic right bundle-branch block
COPD on chronic supp O2, 3L
History of duodenal ulcer with microperforation in 2018
h/o daily ETOH use now abstinent
Former smoker
DNR
ECHO 09/06/23: Definity used, EF 45 to 50%, global hypokinesis, stage I diastolic dysfunction, mild MR, trace TR, PAP 25 to 30 mmHg
Echo 12/11/2024: EF 50 to 55%, no regional wall motion abnormalities, mild concentric LVH, no significant valvular disease
Echo 02/23/2025: EF 50%, mild to moderate concentric LVH, no significant valvular disease
Cath 04/17/25: GAR-LAD patent, JONO Ygraft GAR to OM with 95% distal stenosis.
Plan:
- Challenging situation
- He had recent admission 03/2025 for chest pain and had cath with new OM stenosis, felt to be culprit. This was medically managed as Access to OM was through GAR then to JONO, and any intervention was felt to be high risk due to this. If a
complication to GAR were to occur, he would have very limited treatment options. He was started on Ranexa 500 mg twice daily. Presented back to [facility] with recurrent chest pain and elevated blood pressure.
- unclear if HTN secondary to missed OP meds or due to ischemia
- with recurrence of CP/pressure overnight, note reviewed, started while lying in bed. EKG with worsening lateral ST depression compared to prior. Relieved with IV nitro gtt. currently CP free off IV nitro.
- coreg uptitrated to 12.5mg BID. imdur 30mg added. ranexa dose increased this admission to 1000mg BID.
- trops relatively flat in 0.06 range on admission
- of note, also has history of orthostasis
- continue OP lasix 20mg MWF and spironolactone 12.5mg daily
- Outpatient dose of aspirin 81 mg daily has been continued. will add plavix to regimen as well
- ambulate as able
Progress Note - Commissioning Agent
Subjective
Date of Service: May 09, 2025
Had chest pain overnight, however no active pain
Objective
Labs:
05/08/25 08:21
05/08/25 08:21
Labs
Hgb 10.9 g/dL (13.0-18.0) L 05/08/25 08:21
Hct 33.3 % (39.0-52.0) L 05/08/25 08:21
Plt Count 243 10^3/uL (130-400) 05/08/25 08:21
APTT Cancelled 05/08/25 15:00
Sodium 136 mmol/L (135-145) 05/08/25 08:21
Potassium 4.1 mmol/L (3.5-5.1) 05/08/25 08:21
BUN 13 mg/dl (9-20) 05/08/25 08:21
Creatinine 0.6 mg/dL (0.7-1.3) L 05/08/25 08:21
Glucose 143 mg/dl (70-99) H 05/08/25 08:21
Troponins
05/07/25 05/07/25 05/07/25
07:40 10:14 17:02
Troponin I 0.059 H* 0.068 H* 0.069 H*
05/08/25
00:58
Troponin I 0.061 H*
Vital Signs and I&O:
Vital Signs
Temp Pulse Resp BP Pulse Ox
98.6 F 97 16 102/74 98
05/09/25 11:07 05/09/25 09:15 05/09/25 11:07 05/09/25 09:00 05/09/25 11:07
Vital Signs
Temp Pulse Resp BP Pulse Ox
98.6 F 97 16 102/74 98
05/09/25 11:07 05/09/25 09:15 05/09/25 11:07 05/09/25 09:00 05/09/25 11:07
Intake & Output
05/07/25 05/08/25 05/09/25 05/10/25
07:59 07:59 07:59 07:59
Intake Total 522 / 522
Output Total 1375 / 1375 1350 / 1350
Balance -853 / -853 -1325 / -1325
Physical Exam
Physical Exam
GEN: No distress, awake, alert, oriented x3
HEENT: supple, anicteric, mmm, EOMI
LUNGS: CTA bilaterally, no wheezes/rales
CV: Reg, S1/S2, no murmur
ABD: soft, BS+, NT/ND
EXT: No cyanosis, clubbing, edema
NEURO: Gross non-focal
SKIN: Warm, pink, dry. No rash. Right periorbital ecchymoses
[2025-05-09] MEDS: PLAVIX 75 MG PO (12:21)
--- NOTE | 2025-05-09 12:40 | W.PN.HOSP.TC ---
Today's Communication/Plan
-
Recurrent chest pain
Medication regimen being adjusted
Increased dose of Coreg, addition of Imdur, increase dose of Ranexa, addition of Plavix
Assessment / Plan
Assessment / Plan
IMPRESSION:
Presentation with chest pain
Acute coronary syndrome
Non-ST elevation [place].
Hypertensive urgency
Other conditions:
CAD.
Ischemic cardiomyopathy
Chronic CHF preserved EF
History of NSVT
Chronic orthostatic hypotension.
Paroxysmal atrial fibrillation
� Status post ablation 2017
Chronic RBBB
Not on anticoagulation.
PAD
� History of endovascular AAA repair and bilateral femoral artery enterectomy and profundoplasty 08/11
IDDM
COPD
Chronic hypoxic respiratory failure on home O2 at 2 L per
BPH with bladder outlet obstruction indwelling Vogel catheter on admission
History of daily alcohol use
Former smoker
PLAN:
Acute coronary syndrome
Non-Q wave [place]
Presents along with hypertensive urgency
Chest pain relieved with introduction of nitroglycerin
Initiated on IV heparin and nitroglycerin drip in the ED
Echo 02/23/2025: EF 50%, mild to moderate concentric LVH, no significant valvular disease
Cath: 04/17/25: GAR-LAD patent, JONO Ygraft GAR to OM with 95% distal stenosis.
Represents high risk for endovascular intervention
Recently discharged with attempt to optimize medical treatment and addition of Ranexa
Cardiac markers flat
Recurrent chest pain.
Medication regimen being adjusted with increased dose of Coreg, addition of Imdur and increased Ranexa
DAPT: Plavix added to aspirin. Continue PPI
Chronic CHF preserved EF
Ischemic cardiomyopathy
Volume status compensated.
On furosemide 20 mg Wednesday, spironolactone
Chronic COPD
Chronic hypoxic respiratory failure on home O2 2 L
Obstructive sleep apnea not on CPAP.
Stable respiratory status
Continue prednisone at the maintenance dose. Continue Zithromax
Continue budesonide
IDDM.
Continue insulin Lantus/aspart per
Basal bolus protocol.
Update hemoglobin A1c
BPH with chronic bladder outlet obstruction
Vogel catheter present on admission. Placed about 4 weeks prior to this hospitalization and exchanged 2 weeks prior as per patient
Continue Flomax
CODE STATUS DNR.
DVT prophylaxis: Placed on IV heparin on admission for ACS
Anticipated Discharge: 24 - 48 hours
Subjective/Interval History
-
Date of Service: May 09, 2025
Objective Data
-
Vital Signs:
Vital Signs
Temp Pulse Resp BP Pulse Ox
98.6 F 97 16 102/74 98
05/09/25 11:07 05/09/25 09:15 05/09/25 11:07 05/09/25 09:00 05/09/25 11:07
I&O
05/08/25 05/09/25 05/10/25
06:59 06:59 06:59
Intake Total 522 / 522
Output Total 1375 / 1375 1350 / 1350
Balance -853 / -853 -1325 / -1325
Physical Exam
-
General: Well Developed, Well Nourished, No Apparent Distress and Appears Chronically Ill
HEENT: Normocephalic, Atraumatic, Moist Mucous Membranes, Anicteric and Oxygen
Respiratory: Non Labored Respirations and Decreased Breath Sounds; Negative Accessory Resp Muscle Use
Cardiac: Regular Rhythm and S1/S2; Negative Murmur, Rub, JVD or Gallop
GI: Soft, Nontender, Nondistended and Normal Bowel Sounds
Musculoskeletal: No Clubbing, No Cyanosis and No Edema
Skin: Warm, Dry and Normal Turgor; Negative Rash
Neuro: AO x 3 and Nonfocal/Grossly Intact; Negative Tremors
Psych: Calm
[2025-05-09 12:41] LABS: Glucose - Point of Care 176 mg/dl (70-99)
[2025-05-09 17:31] LABS: Glucose - Point of Care 238 mg/dl (70-99)
[2025-05-09] MEDS: NOVOLOG FLEXPEN-LOW RESISTANCE 2 UNITS SC (17:36)
--- NOTE | 2025-05-09 18:11 | PTCARENOTE ---
Pt received this am with no c/o of any chest pain. Nitro weaned off by 0948. Assisted oob to the chair with the walker and 1 assist. Remains on 2LNC which pt wears at home.
[2025-05-09] MEDS: RANEXA EXTENDED RELEASE 1000 MG PO (20:07)
[2025-05-09 22:01] LABS: Glucose - Point of Care 189 mg/dl (70-99)
[2025-05-09] MEDS: ATIVAN 0.5 MG PO (22:26)
[2025-05-09] MEDS: LANTUS 0.07 UNITS SC (22:26)
[2025-05-09] MEDS: MELATONIN 3 MG PO (22:26)
--- NOTE | 2025-05-09 23:45 | PTCARENOTE ---
Assumed care of the pt @ 1900. Pt is AAOx3 forgetful at times. SR/ST on the monitor denies cp. Plan of care discussed with pt. Bed alarm in use. Call kuhn within reach.
[2025-05-10 04:55] VITALS: BP 146/77
[2025-05-10] MEDS: TYLENOL 1000 MG PO ×2 (06:40→13:16)
[2025-05-10 07:29] VITALS: BP 153/76
[2025-05-10] MEDS: PULMICORT 0.5 MG INH (07:55)
--- NOTE | 2025-05-10 07:55 | PTCARENOTE ---
Assumed care of pt from prev nsg shift; Pt drowsy but easily arousable, AAOX3 w/some mild forgetfulness. Pt's VSS w/HR in the 70's-80's at rest & in the low 110's w/activity. BP 153/76 this AM. Pt is SR/ST w/BBB on telemetry monitoring. Pt
requesting to take a AM meds after breakfast which he has ordered to come around 10-10:30. Plan for the day discussed w/pt which includes increasing activity today & poss D/C back to [facility]. Pt verbalized his understanding. Call kuhn within
reach & no addtl needs at this time.
--- NOTE | 2025-05-10 08:12 | W.PN.CARDCBS ---
Addendum entered and electronically signed by Kris Rojo MD 05/10/25 11:18:
I saw and examined the patient.
The BARK TANNER or PA's note was reviewed and I agree with the note.
Comment: General: Well developed, well nourished in NAD.
Neck: Supple, no JVD, HJR, carotids +2 B/L, no bruits bilaterally.
Heart: Non displaced PMI, RRR, no murmurs, No S3, S4, no rubs.
Lungs: Scattered rhonchi
Extremities: No clubbing, cyanosis or edema bilaterally.
Neuro: Grossly nonfocal, awake, alert and oriented x3.
No chest pain at present. Will ambulate and if okay will be stable cardiology status for discharge later today.
Original Note:
Today's Communication / Plan
-
Ambulate on current antianginal regimen
For possible discharge later today
Will arrange outpatient cardiac follow-up
Impression / Plan
-
PCP: Dr. Pedroza
Cardiology: Dr. MILA Woo
Impression:
Presented with chest pain 05/07/25
Recent admission for elevated Troponin and cardiac cath with progressive CAD 04/13/2025 until 04/18/2025
HTN emergency
Elevated troponin, suspected nonischemic myocardial injury
Chronic HFpEF
CAD
s/p CABG 1998 at [facility] with GAR to LAD and free JONO Y graft from GAR to OM
cath showed progression of [place] CAD however patient bypass grafts 12/2019
History of recovered ischemic cardiomyopathy, EF 50 to 55% by echo 11/2024
h/o NSVT
Chronic orthostatic hypotension
Sinus tachycardia
Paroxysmal atrial flutter
s/p ablation in 2017
Paroxysmal atrial fibrillation
diagnosed during 12/2019 admission without known recurrence
Not chronically anticoagulated due to patient's choice and low burden of atrial arrhythmia
PVD
h/o endovascular AAA repair and bilateral femoral artery endarterectomy and profundoplasty 07/2018
Type 2 diabetes
Hypertension
Hypercholesterolemia
Chronic right bundle-branch block
COPD on chronic supp O2, 3L
History of duodenal ulcer with microperforation in 2018
h/o daily ETOH use now abstinent
Former smoker
DNR
ECHO 09/06/23: Definity used, EF 45 to 50%, global hypokinesis, stage I diastolic dysfunction, mild MR, trace TR, PAP 25 to 30 mmHg
Echo 12/11/2024: EF 50 to 55%, no regional wall motion abnormalities, mild concentric LVH, no significant valvular disease
Echo 02/23/2025: EF 50%, mild to moderate concentric LVH, no significant valvular disease
Cath 04/17/25: GAR-LAD patent, JONO Ygraft GAR to OM with 95% distal stenosis.
Plan:
- He had recent admission 03/2025 for chest pain and had cath with new OM stenosis, felt to be culprit. This was medically managed as Access to OM was through GAR then to JONO, and any intervention was felt to be high risk due to this. If a
complication to GAR were to occur, he would have very limited treatment options. He was started on Ranexa 500 mg twice daily. Presented back to [facility] with recurrent chest pain and elevated blood pressure.
- Fortunately chest pain-free overnight
- Continue regimen of Coreg 12.5 mg twice daily, Ranexa 1000 mg twice daily, Imdur 30 mg daily
- Encouraged patient and nursing for ambulation after breakfast to assess for recurrence of chest pain or shortness of breath. He also has history of orthostasis, so want to ensure he is tolerating new med regimen
- continue OP lasix 20mg MWF and spironolactone 12.5mg daily
- Outpatient dose of aspirin 81 mg daily has been continued. plavix added this admission
- If remains chest pain-free and without dizziness with ambulation, would plan for discharge today
- Will arrange outpatient cardiac follow-up
- Discussed with nursing
Progress Note - Tool Marker
Subjective
Date of Service: May 10, 2025
No chest pain overnight. No dizziness with ambulation to bathroom yesterday
Objective
Labs:
05/08/25 08:21
05/08/25 08:21
Labs
Hgb 10.9 g/dL (13.0-18.0) L 05/08/25 08:21
Hct 33.3 % (39.0-52.0) L 05/08/25 08:21
Plt Count 243 10^3/uL (130-400) 05/08/25 08:21
APTT Cancelled 05/08/25 15:00
Sodium 136 mmol/L (135-145) 05/08/25 08:21
Potassium 4.1 mmol/L (3.5-5.1) 05/08/25 08:21
BUN 13 mg/dl (9-20) 05/08/25 08:21
Creatinine 0.6 mg/dL (0.7-1.3) L 05/08/25 08:21
Glucose 143 mg/dl (70-99) H 05/08/25 08:21
Troponins
05/07/25 05/07/25 05/07/25
07:40 10:14 17:02
Troponin I 0.059 H* 0.068 H* 0.069 H*
05/08/25
00:58
Troponin I 0.061 H*
Vital Signs and I&O:
Vital Signs
Temp Pulse Resp BP Pulse Ox
98.0 F 74 15 153/76 97
05/10/25 07:26 05/10/25 07:56 05/10/25 07:56 05/10/25 07:29 05/10/25 07:56
Vital Signs
Temp Pulse Resp BP Pulse Ox
98.0 F 74 15 153/76 97
05/10/25 07:26 05/10/25 07:56 05/10/25 07:56 05/10/25 07:29 05/10/25 07:56
Intake & Output
05/08/25 05/09/25 05/10/25 05/11/25
07:59 07:59 07:59 07:59
Intake Total 522 / 522
Output Total 1375 / 1375 1350 / 1350 1800 / 1800
Balance -853 / -853 -1325 / -1325 -1800 / -1800
Physical Exam
Physical Exam
GEN: No distress, awake, alert, oriented x3
HEENT: supple, anicteric, mmm, EOMI
LUNGS: CTA bilaterally, no wheezes/rales
CV: Reg, S1/S2, no murmur
ABD: soft, BS+, NT/ND
EXT: No cyanosis, clubbing, edema
NEURO: Gross non-focal
SKIN: Warm, pink, dry. No rash. Right periorbital ecchymoses
[2025-05-10] MEDS: NOVOLOG FLEXPEN-LOW RESISTANCE SC (08:34)
[2025-05-10 09:23] LABS: Glucose - Point of Care 155 mg/dl (70-99)
[2025-05-10] MEDS: NOVOLOG FLEXPEN 3 UNITS SC ×2 (10:20→14:46)
[2025-05-10] MEDS: PROTONIX 40 MG PO (10:21)
[2025-05-10] MEDS: ZITHROMAX 250 MG PO (10:21)
[2025-05-10] MEDS: MIRALAX 17 GRAMS PO (10:21)
[2025-05-10] MEDS: SODIUM CHLORIDE 1 GRAM PO ×2 (10:21→13:16)
[2025-05-10] MEDS: LIPITOR 80 MG PO (10:21)
[2025-05-10] MEDS: WELLBUTRIN XL (24 hour extended release) 300 MG PO (10:21)
[2025-05-10] MEDS: DELTASONE 10 MG PO (10:21)
[2025-05-10] MEDS: RANEXA EXTENDED RELEASE 1000 MG PO (10:21)
[2025-05-10] MEDS: ZOLOFT 200 MG PO (10:21)
[2025-05-10] MEDS: VITAMIN C 500 MG PO (10:22)
[2025-05-10] MEDS: ALDACTONE 12.5 MG PO (10:22)
[2025-05-10] MEDS: LOW STRENGTH ASPIRIN 81 MG PO (10:22)
[2025-05-10] MEDS: COREG 12.5 MG PO (10:22)
[2025-05-10] MEDS: KCL 20 MEQ PO (10:22)
[2025-05-10] MEDS: MUCINEX 600 MG PO (10:22)
[2025-05-10] MEDS: IMDUR (EXTENDED RELEASE) 30 MG PO (10:22)
[2025-05-10] MEDS: FLOMAX 0.4 MG PO (10:22)
[2025-05-10] MEDS: PLAVIX 75 MG PO (10:22)
[2025-05-10] MEDS: FLUSH (NSS) 2 FLUSH IV (10:23)
--- NOTE | 2025-05-10 10:50 | PN.CDI ---
CDI
- -
CDI:
Physician Documentation Request
Admit Date: 05/07/25 12:16
Dear Doctor Jocelyne,
Patient presented with chest pain. Troponin noted to be elevated.
Hospitalist progress note states 'Non-ST elevations [place]'
Cardiology states 'suspected nonischemic myocardial injury'
Recent admission 03/2025 for chest pain and had cath with new OM stenosis, felt to be culprit. This was medically managed as Access to OM was through GAR then to JONO, and any intervention was felt to be high risk due to this.'
In an attempt to clarify potentially conflicting documentation, please clarify the etiology of the elevated troponin:
NSTEMI
nonischemic myocardial injury
Other
Use of terms such as suspected, likely, concern for, or probable (associated with a specific diagnosis that is being evaluated, monitored, or treated as if it exists) are acceptable and can be coded in the inpatient setting, when documented at the
time of discharge.
Thank you,
Johanne Fontana RN, BSN
CDI Specialist
tiger text
Please use your independent medical judgment in providing your response.
--- NOTE | 2025-05-10 11:21 | CM ---
Addendum entered by Ava Briones 05/10/25 13:30:
Unit Sec. made ambulance arrangements with acute care ambulance for 4:15p.m. [place] [facility] regarding transfer date and time.
Addendum entered by Ava Briones 05/10/25 12:47:
Telephone call to [facility] admission who confirms ability to accept back today.
Addendum entered by Ava Briones 05/10/25 11:27:
Telephone call to [facility] admission to confirm ability to accept today if ready for transfer. Left message.
Original Note:
Reviewed chart. Met with Mr. Etienne to review discharge plans. His plan is to return to [facility] when medically stable. 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. He has a fifteen M.A. bed
hold. Prior to admission he ambulates with a single point cane or walker depending on how he feels. The staff assists with adls. Medical work-up in progress. The discharge plan is to return to [facility] when medically stable.
[2025-05-10 12:11] VITALS: BP 109/72
--- NOTE | 2025-05-10 12:34 | W.DCSUMMARY ---
Discharge Summary
Discharge Data
Date of Admission: 05/07/25
Date of Discharge: 05/10/25
-
Pending Results: No
Hospital Course
IMPRESSION:
Presentation with chest pain
Acute coronary syndrome
Non-ST elevation [place].
Hypertensive urgency
Other conditions:
CAD.
Ischemic cardiomyopathy
Chronic CHF preserved EF
History of NSVT
Chronic orthostatic hypotension.
Paroxysmal atrial fibrillation
� Status post ablation 2017
Chronic RBBB
Not on anticoagulation.
PAD
� History of endovascular AAA repair and bilateral femoral artery enterectomy and profundoplasty 08/11
IDDM
COPD
Chronic hypoxic respiratory failure on home O2 at 2 L per
BPH with bladder outlet obstruction indwelling Vogel catheter on admission
History of daily alcohol use
Former smoker
PLAN:
Acute coronary syndrome
Non-Q wave FL
Presents along with hypertensive urgency
Chest pain relieved with introduction of nitroglycerin
Initiated on IV heparin and nitroglycerin drip in the ED
Echo 02/23/2025: EF 50%, mild to moderate concentric LVH, no significant valvular disease
Cath: 04/17/25: GAR-LAD patent, JONO Ygraft GAR to OM with 95% distal stenosis.
Represents high risk for endovascular intervention
Cardiac markers remain flat.
Given high risk for endovascular intervention and with discussion with cardiology medication regimen has been adjusted as follows:
Addition of Plavix. Patient will remain on DAPT and PPI prophylaxis.
Ranexa dose increased
Coreg dose increased.
Imdur initiated
Chronic CHF preserved EF
Ischemic cardiomyopathy
Volume status compensated.
On furosemide 20 mg Wednesday, spironolactone
Chronic COPD
Chronic hypoxic respiratory failure on home O2 2 L
Obstructive sleep apnea not on CPAP.
Stable respiratory status
Continue prednisone at the maintenance dose. Continue Zithromax
Continue budesonide
IDDM.
Continue insulin Lantus/aspart
BPH with chronic bladder outlet obstruction
Vogel catheter present on admission. Placed about 4 weeks prior to this hospitalization and exchanged 2 weeks prior as per patient
Continue Flomax
CODE STATUS DNR.
Discharge Plan
-
Patient Disposition: Custodial/SNF
Discharge Diagnosis/Procedures: Acute coronary syndrome
Condition: Good
Diet: Diabetic, Carb Controlled
Referrals:
Renan Pedroza DO [Family Provider, Family Practice]
Henrietta Hope PA-C [Specified Professional Personl, Cardiology] - 05/30/25 3:20 pm
Referral Note: You have a cardiology follow-up appointment at the [place] office with Dr. Woo's physician nursing home assistant, Henrietta. Please call with questions
Prescriptions:
New
carvedilol 12.5 mg Tablet
12.5 mg PO BID Qty: 60 0RF
isosorbide mononitrate 30 mg Tablet Extended Release 24 Hr
30 mg PO DAILY Qty: 30 0RF
clopidogrel 75 mg Tablet
75 mg PO DAILY Qty: 30 0RF
oxycodone 5 mg Tablet
2.5 mg PO Q4HPRN PRN (Reason: moderate-severe pain) Qty: 15 0RF
ranolazine 500 mg Tablet Extended Release 12 Hr
1,000 mg PO BID Qty: 120 0RF
Continued
ipratropium-albuterol 0.5 mg-3 mg(2.5 mg base)/3 mL Solution For Nebulization
3 ml INHALATION R QIDPRN PRN (Reason: SOB)
albuterol sulfate 90 mcg/actuation Hfa Aerosol Inhaler
2 puff INHALATION R Q6HPRN PRN (Reason: SOB)
tamsulosin 0.4 mg Capsule
0.4 mg PO DAILY
atorvastatin 80 MG tablet
80 mg PO DAILY
pantoprazole 40 MG tablet,delayed release (DR/EC)
40 mg PO DAILY
prednisone 10 MG tablet
10 mg PO DAILY Qty: 0 0RF
acetaminophen 325 mg Tablet
650 mg PO Q4HPRN PRN (Reason: mild pain/fever)
magnesium hydroxide [Milk of Magnesia] 400 mg/5 mL Suspension
30 ml PO HSPRN PRN (Reason: constipation)
bisacodyl 10 mg Suppository
10 mg [place] DAILYPRN PRN (Reason: if mom ineffective)
fluticasone propionate 50 mcg/actuation [place],Suspension
2 spray INTRANASAL DAILYPRN PRN (Reason: allergies)
budesonide 0.5 mg/2 mL suspension for nebulization
0.5 mg inhalation R BID
nitroglycerin 0.2 mg/hr Patch 24 Hour
0.2 mg transdermal DAILY Qty: 0 0RF
insulin aspart U-100 100 unit/mL (3 mL) Insulin Pen
3 unit SC AC Qty: 0 0RF
polyethylene glycol 3350 17 gram Powder In Packet
17 g PO DAILY Qty: 0 0RF
insulin glargine [Lantus U-100 Insulin] 100 unit/mL solution
7 unit SC HS Qty: 0 0RF
azithromycin 250 MG tablet
250 mg PO DAILY Qty: 0 0RF
melatonin 3 mg Tablet
3 mg PO HS Qty: 0 0RF
spironolactone 25 mg Tablet
12.5 mg PO DAILY Qty: 0 0RF
potassium chloride 20 mEq tablet,ER particles/crystals
20 meq PO DAILY Qty: 0 0RF
ascorbic acid (vitamin C) [Vitamin C] 500 mg tablet
500 mg PO DAILY Qty: 0 0RF
aspirin [Children's Aspirin] 81 mg Tablet,Chewable
81 mg PO DAILY Qty: 1 0RF
furosemide 20 mg Tablet
20 mg PO MOWEFR Qty: 0 0RF
Mucinex DM 30-600 mg Tablet Extended Release 12 Hr
1 tab PO Q12H Qty: 0 0RF
bupropion HCl 300 mg tablet extended release 24 hr
300 mg PO DAILY Qty: 0 0RF
sertraline 100 mg Tablet
200 mg PO DAILY
sodium chloride 1 gram Tablet
1,000 mg PO QID
acetaminophen [Tylenol Extra Strength] 500 mg Tablet
1,000 mg PO Q6H
lorazepam 0.5 mg tablet
0.5 mg PO TIDPRN PRN (Reason: sleep/anxiety) Qty: 6 0RF
Discontinued
ranolazine 500 mg Tablet Extended Release 12 Hr
500 mg PO BID Qty: 60 0RF
carvedilol 6.25 mg tablet
6.25 mg PO BID Qty: 0 0RF
Discharge Orders:
Discharge Patient (As Directed); Ordered 05/10/25
Ordered By: Nigel Casanova
Care Plan Goals
Care Plan Goals:
Problem: Readiness for enhanced knowledge related to diagnosis and treatment plan
Goal: Understand your diagnosis and treatment plan needs, including medications if applicable.
Instructions: Know your diagnosis, underlying causes and treatment plan options, including medications if applicable. Consult with your health care team to learn about your diagnosis and treatment plan, including medications if applicable.
Discharge Date and Time
Print Language: YAKUT
[2025-05-10] MEDS: DUONEB 3 ML INH (12:44)
[2025-05-10 14:10] LABS: Glucose - Point of Care 186 mg/dl (70-99)
[2025-05-10] MEDS: NOVOLOG FLEXPEN-LOW RESISTANCE 1 UNITS SC (14:46)
[2025-05-10 15:02] VITALS: BP 131/88
--- NOTE | 2025-05-10 17:36 | PTCARENOTE ---
Report called to Evan at [phone] at [facility]. 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
Spoke w/nurse Christelle at [facility] re: Q6H scheduled 1,000 mg Tylenol order. Order D/C'd by impression printer hospitalist Dr Ugarte. New D/C orders faxed over to [facility] just after pt left.
== END 2025-05-10 15:30 | DRG 281 ==
LOC: IVU 12:16
PROVIDERS: ADMITTING PHYSICIAN Internal Medicine; CONSULT PHYSICIAN Internal Medicine Cardiovascular Disease; EMERGENCY PHYSICIAN Student in an Organized Health Care Education/Training Program; FAMILY PHYSICIAN Student in an Organized Health Care Education/Training Program
DX: I21.4 Non-ST elevation (NSTEMI) myocardial infarction (principal); I48.92 Unspecified atrial flutter; I50.32 Chronic diastolic (congestive) heart failure; N13.8 Other obstructive and reflux uropathy; J96.11 Chronic respiratory failure with hypoxia; I16.0 Hypertensive urgency; E11.51 Type 2 diabetes mellitus with diabetic peripheral angiopathy without gangrene; I25.10 Atherosclerotic heart disease of native coronary artery without angina pectoris; J44.9 Chronic obstructive pulmonary disease, unspecified; E78.00 Pure hypercholesterolemia, unspecified; I11.0 Hypertensive heart disease with heart failure; D64.9 Anemia, unspecified; G47.33 Obstructive sleep apnea (adult) (pediatric); I48.0 Paroxysmal atrial fibrillation; K21.9 Gastro-esophageal reflux disease without esophagitis; N40.1 Benign prostatic hyperplasia with lower urinary tract symptoms; I95.1 Orthostatic hypotension; S40.021A Contusion of right upper arm, initial encounter; S00.11XA Contusion of right eyelid and periocular area, initial encounter; X58.XXXA Exposure to other specified factors, initial encounter; I25.5 Ischemic cardiomyopathy; I45.10 Unspecified right bundle-branch block; Z66 Do not resuscitate; I25.2 Old myocardial infarction; Z95.5 Presence of coronary angioplasty implant and graft; Z95.1 Presence of aortocoronary bypass graft; Z99.81 Dependence on supplemental oxygen; Z90.49 Acquired absence of other specified parts of digestive tract; Z87.891 Personal history of nicotine dependence; Z88.8 Allergy status to other drugs, medicaments and biological substances; Z79.82 Long term (current) use of aspirin; Z79.51 Long term (current) use of inhaled steroids; Z79.52 Long term (current) use of systemic steroids; Z79.4 Long term (current) use of insulin; Z87.11 Personal history of peptic ulcer disease; Z86.79 Personal history of other diseases of the circulatory system
CPT/HCPCS: 71046; 80048; 80053; 82962; 83880; 84484; 85025; 85730; 87070; 93005; 94640; 96374; 96375; 99285

== ENCOUNTER 2025-05-15 20:36 | Emergency (ER) | payer MEDICARE, MEDICAID, SELFPAY ==
[2025-05-15 20:39] VITALS: BP 101/64
[2025-05-15 22:25] VITALS: BP 168/98
[2025-05-15 23:01] VITALS: BMI 27.6
[2025-05-15 23:18] LABS: Glucose - Point of Care 290 mg/dl (70-99)
--- NOTE | 2025-05-15 23:18 | ED.MUSCINJ ---
HPI-Injury
General
Chief Complaint: Fall
Source: patient
Exam Limitations: none
Time Seen by Provider: 05/15/25 22:54
Nursing documentation reviewed up to this point in time: agreed with
History of Present Illness-Injury
Is this injury a work related problem?: No
Is pt an associate of [facility]?: No
Initial Injury comments:
70-year-old male multiple chronic medical conditions on oxygen diabetic on Plavix slipped getting out of his bed is nursing of struck his head he has a 6 cm linear laceration over the right scalp into the forehead moves all extremities he is
cooperative here,
Past History
Past History
ED Past Medical History: Arrthythmia (Atrial fib), CAD, CHF, COPD, GERD, HTN, Hypercholesterolemia, IDDM, [place] (Non-STEMI December 2019), Valvular disease and Other (Back pain, Headaches, Sleep apnea, IBS, Pancreatitis, Ulcers, Gastritis, Anemia, )
ED Past Surgical History: Cardiac (CABG, PTCA with stent), Cholecystectomy (January 2016), Orthopedic (Right wrist surgery), Tonsilectomy and Other (hernia repair, endovascular AAA with bilateral femoral endarterectomy and profundoplasty 07/2018)
Social History
Tobacco: Former smoker
Alcohol: None
Drug: None
Personal: Single
Living: alone
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
Family History
Family History: Hypertension
Review of Systems
Review of Systems
All Other Systems: Not applicable
ABD/GI: Denies abdominal pain
Neurological: Reports headache
Phy Exam
Physical Exam
Physical Exam:
Physical Exam
General: no apparent distress, not acutely ill
Neck: No posterior neck pain, 6 cm linear laceration to the right forehead into the scalp
Lungs: no acute respiratory distress.
Neuro: alert and oriented. no focal neurological deficits
Skin: no rash
Psychiatric: cooperative
Extremities: Moves all extremities
Injury Course
Orders/Labs/Results
Orders:
Orders
05/15/25 20:45
CT Head W/o Iv Contrast Urgent
Comment:
Reason For Exam: mechanical fall/head strike/plavix
Cervical Spine wo Contrast CT [CT Cervical Spine W/o Iv Contr] Urgent
Comment:
Reason For Exam: mechanical fall/head strike/plavix
05/15/25 23:22
Acetaminophen [Tylenol] 1,000 mg .ROUTE .STK-MED ONE
05/15/25 23:24
Acetaminophen [Tylenol] 1,000 mg PO NOW STA
Abnormal Lab Results
05/15/25
23:16
POC Glucose 290 H mg/dl
(70-99)
Procedures
Laceration Closure
Right scalp/forehead:
Status of Wound: clean
Size of Wound in cm: 6
Description of Wound Edges: sharp
Preparation: cleaned with saline
Anesthesia: 1% Lidocaine with epi
Wound exploration: explored to base- no FB
Type of Closure: single layer closure
Skin Closure Material: 4-0 nylon
Number of sutures: 4
MDM/Problems Addressed
Differential Diagnosis Includes:
Slip and fall laceration intracerebral hemorrhage subdural
MDM/Problems Addressed:
Laceration 4
Chronic conditions affecting care: DM, CAD, Cardiomyopathy and Arrhythmia
Acute Exacerbation and/or Progression of Chronic Illness: DM, CAD, Cardiomyopathy and Arrhythmia
*Radiology
Radiology exam reviewed: radiology read reviewed
*Pulse Oximetry
SaO2: 99
Oxygen Mode of Delivery: Room air
Patient hypoxic: no
*Critical Care Note
Total Time (30-74mins, 75-104mins- exclusive of procedures): Not Applicable
Update Note
Update Note:
Update CT reports noted, wound closed
ED Attending Note
-
Portions of this chart may have been created with voice recognition software.� Occasional wrong word or��sound alike� substitutions may have occurred due to the inherent limitations of voice recognition software.
Discharge Plan
Departure
Patient Disposition: Group Home/SNF
Date of Disposition: 05/15/25
Time of Disposition: 23:30
Patient with high blood pressure during this ER visit?: No
Condition: Good
Covid-19: Not Applicable
Discharge Problem:
Laceration
Instructions: Concussion, Adult (DC), Laceration Repair With Stitches (DC), Preventing falls in adults, Wound Care (DC)
Prescriptions:
No Action
ipratropium-albuterol 0.5 mg-3 mg(2.5 mg base)/3 mL Solution For Nebulization
3 ml INHALATION R QIDPRN PRN (Reason: SOB)
albuterol sulfate 90 mcg/actuation Hfa Aerosol Inhaler
2 puff INHALATION R Q6HPRN PRN (Reason: SOB)
tamsulosin 0.4 mg Capsule
0.4 mg PO DAILY
atorvastatin 80 MG tablet
80 mg PO DAILY
pantoprazole 40 MG tablet,delayed release (DR/EC)
40 mg PO DAILY
prednisone 10 MG tablet
10 mg PO DAILY Qty: 0 0RF
acetaminophen 325 mg Tablet
650 mg PO Q4HPRN PRN (Reason: mild pain/fever)
magnesium hydroxide [Milk of Magnesia] 400 mg/5 mL Suspension
30 ml PO HSPRN PRN (Reason: constipation)
bisacodyl 10 mg Suppository
10 mg [place] DAILYPRN PRN (Reason: if mom ineffective)
fluticasone propionate 50 mcg/actuation [place],Suspension
2 spray INTRANASAL DAILYPRN PRN (Reason: allergies)
budesonide 0.5 mg/2 mL suspension for nebulization
0.5 mg inhalation R BID
nitroglycerin 0.2 mg/hr Patch 24 Hour
0.2 mg transdermal DAILY Qty: 0 0RF
insulin aspart U-100 100 unit/mL (3 mL) Insulin Pen
3 unit SC AC Qty: 0 0RF
polyethylene glycol 3350 17 gram Powder In Packet
17 g PO DAILY Qty: 0 0RF
insulin glargine [Lantus U-100 Insulin] 100 unit/mL solution
7 unit SC HS Qty: 0 0RF
azithromycin 250 MG tablet
250 mg PO DAILY Qty: 0 0RF
melatonin 3 mg Tablet
3 mg PO HS Qty: 0 0RF
spironolactone 25 mg Tablet
12.5 mg PO DAILY Qty: 0 0RF
potassium chloride 20 mEq tablet,ER particles/crystals
20 meq PO DAILY Qty: 0 0RF
ascorbic acid (vitamin C) [Vitamin C] 500 mg tablet
500 mg PO DAILY Qty: 0 0RF
aspirin [Children's Aspirin] 81 mg Tablet,Chewable
81 mg PO DAILY Qty: 1 0RF
furosemide 20 mg Tablet
20 mg PO MOWEFR Qty: 0 0RF
Mucinex DM 30-600 mg Tablet Extended Release 12 Hr
1 tab PO Q12H Qty: 0 0RF
bupropion HCl 300 mg tablet extended release 24 hr
300 mg PO DAILY Qty: 0 0RF
sertraline 100 mg Tablet
200 mg PO DAILY
sodium chloride 1 gram Tablet
1,000 mg PO QID
carvedilol 12.5 mg Tablet
12.5 mg PO BID Qty: 60 0RF
isosorbide mononitrate 30 mg Tablet Extended Release 24 Hr
30 mg PO DAILY Qty: 30 0RF
clopidogrel 75 mg Tablet
75 mg PO DAILY Qty: 30 0RF
oxycodone 5 mg Tablet
2.5 mg PO Q4HPRN PRN (Reason: moderate-severe pain) Qty: 15 0RF
ranolazine 500 mg Tablet Extended Release 12 Hr
1,000 mg PO BID Qty: 120 0RF
lorazepam 0.5 mg tablet
0.5 mg PO TIDPRN PRN (Reason: sleep/anxiety) Qty: 6 0RF
Referrals:
Renan Pedroza DO [Family Provider, Family Practice] - Follow up in 5-7 days
Activity Restrictions/Additional Instructions:
Ice to areas that hurt, Tylenol as needed for headache
Stitches out in 5 to 7 days by your family doctor or the ER
Interventions
Interventions:
*Risk Screen - Suicide Last Done: 05/15/25 20:39
*General Assessment Last Done: 05/15/25 23:02
*Neglect/Abuse Screening Last Done: 05/15/25 20:39
*ED- Fall Risk Assessment Last Done: 05/15/25 23:02
*ED COVID-19 Vaccine History Last Done: 05/15/25 23:02
ED- Neurological Assessment Last Done: 05/15/25 23:07
Discharge Date and Time
Print Language: MALAWIAN
[2025-05-15] MEDS: TYLENOL 1000 MG PO (23:24)
[2025-05-16 00:12] VITALS: BP 152/91
== END 2025-05-16 00:25 ==
LOC: EMR 20:36
PROVIDERS: EMERGENCY PHYSICIAN Emergency Medicine; FAMILY PHYSICIAN Student in an Organized Health Care Education/Training Program
DX: S01.01XA Laceration without foreign body of scalp, initial encounter (principal); W22.03XA Walked into furniture, initial encounter; I48.91 Unspecified atrial fibrillation; I25.10 Atherosclerotic heart disease of native coronary artery without angina pectoris; I11.0 Hypertensive heart disease with heart failure; I50.9 Heart failure, unspecified; E78.00 Pure hypercholesterolemia, unspecified; E11.9 Type 2 diabetes mellitus without complications; I25.2 Old myocardial infarction; J44.9 Chronic obstructive pulmonary disease, unspecified; G47.30 Sleep apnea, unspecified; K58.9 Irritable bowel syndrome, unspecified; Z79.02 Long term (current) use of antithrombotics/antiplatelets; Z82.49 Family history of ischemic heart disease and other diseases of the circulatory system; Z87.19 Personal history of other diseases of the digestive system; Z87.891 Personal history of nicotine dependence; Z90.49 Acquired absence of other specified parts of digestive tract; Z95.1 Presence of aortocoronary bypass graft; Z95.5 Presence of coronary angioplasty implant and graft
CPT/HCPCS: 99284; 12002; 70450; 72125; 82962

== ENCOUNTER → 2025-05-17 10:30 | Outpatient (REF) | payer MEDICARE, MEDICAID, SELFPAY ==
[2025-05-17 12:38] LABS: Blood Urea Nitrogen 15 mg/dl (9-20); Calcium 8.9 mg/dl (8.4-10.2); Carbon Dioxide 30 mmol/L (22-30); Chloride 102 mmol/L (98-107); Glucose 124 mg/dl (70-99); Potassium 4.4 mmol/L (3.5-5.1); Sodium 137 mmol/L (135-145); eGFR > 60.00
== END ==
LOC: OLABN 10:30
PROVIDERS: ATTENDING PHYSICIAN Student in an Organized Health Care Education/Training Program
DX: E87.1 Hypo-osmolality and hyponatremia (principal)
CPT/HCPCS: 36415; 80048

== ENCOUNTER 2025-05-24 13:08 | Inpatient (IN) | payer MEDICARE, MEDICAID, SELFPAY ==
[2025-05-24 08:19] VITALS: BP 148/86; BMI 27.0
[2025-05-24 09:00] VITALS: BP 168/88
[2025-05-24] MEDS: TYLENOL 1000 MG PO ×2 (09:06→20:59)
--- NOTE | 2025-05-24 09:15 | ED.GENMED ---
History of Present Illness
General
Chief Complaint: Musculo-Skeletal Complaint
Source: patient
Exam Limitations: none
Time Seen by Provider: 05/24/25 08:20
Nursing documentation reviewed up to this point in time: agreed with
History of Present Illness
History of Present Illness:
Patient is a 70-year-old male who presents to the emergency department from [facility] following fall last night with outpatient x-ray showing a fracture of his left hip. According to patient�he sustained a mechanical fall yesterday evening
landing on his left side. He does not believe that he hit his head. He reports pain in his left hip extending down his left thigh, worse with weightbearing. He does report that he is mostly wheelchair-bound with very limited weightbearing at his
baseline.
He denies any headache, neck pain, chest pain, shortness of breath, or abdominal pain. Patient denies any numbness/tingling in lower extremities. He denies any back pain, loss of bowel/bladder control or saddle paresthesias.
Patient states he had a fall a little over a week ago and had stitches placed on his scalp which he thinks may be ready for removal.
Patient is on 3 L O2 via nasal cannula at baseline.
He takes a baby aspirin and Plavix.
Past History
Past History
ED Past Medical History: Arrthythmia (Atrial fib), CAD, CHF, COPD, GERD, HTN, Hypercholesterolemia, IDDM, [place] (Non-STEMI December 2019), Valvular disease and Other (Back pain, Headaches, Sleep apnea, IBS, Pancreatitis, Ulcers, Gastritis, Anemia, )
ED Past Surgical History: Cardiac (CABG, PTCA with stent), Cholecystectomy (January 2016), Orthopedic (Right wrist surgery), Tonsilectomy and Other (hernia repair, endovascular AAA with bilateral femoral endarterectomy and profundoplasty 07/2018)
Social History
Tobacco: Former smoker
Alcohol: None
Drug: None
Personal: Single
Living: alone
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
Family History
Family History: Hypertension
Review of Systems
Review of Systems
Allergies reviewed?: Yes
All Other Systems: ROS reviewed and negative except as documented in HPI and ROS
Phy Exam
Physical Exam
Physical Exam:
Vitals: Patient's vital signs are stable. Afebrile
General: Patient is chronically ill-appearing.
Skin: Warm and dry, no rashes or lesions
Head: Normocephalic, healing laceration to right frontal scalp with 4 simple erupted sut[address] in place.
Eyes: Sclera nonicteric. Minimal healing ecchymosis of right infraorbital region.
Throat: Protecting airway
Neck: Normal ROM, no cervical spine tenderness, no meningismus
Cardiac: Regular rate and rhythm, no murmurs.
Pulm: On 3 L nasal cannula. Mild tachypnea. Decreased breath sounds bilaterally. No wheeze.
Abdomen: Abdomen soft and nontender. No rebound tenderness or guarding.
Extremities: Tenderness to palpation of left hip with pain with both internal/external rotation of left hip. No tenderness to inguinal region bilaterally. Ecchymosis of left knee however full range of motion. Right lower extremity and bilateral
upper extremities atraumatic and nontender with full range of motion. Distal pulses palpable and equal bilaterally with normal sensation. Strength intact.
Neuro: AAOx3. No focal deficits.
Psychiatric: Normal affect.
Course
Orders/Labs/Results
Orders:
Orders
05/24/25 08:38
Electrocardiogram (*1) Urgent
Reason for Study: PreOp
CT Head W/o Iv Contrast Urgent
Comment:
Reason For Exam: fall, confusion
EKG- Treatment ONCE
CR Knee - Left 1 Or 2 Views Urgent
Reason For Exam: fall
Hip, Left 2-3 Views [CR Hip - LT w/wo Pel 2-3 Vw*] Urgent
Comment:
Reason For Exam: fall, left hip pain
Include a pelvis x-ray?: Yes
05/24/25 08:39
Oxycodone/Acetaminophen [Percocet 5/325] 1 tablet PO NOW STA
05/24/25 08:43
Acetaminophen [Tylenol] 1,000 mg PO NOW STA
05/24/25 09:15
Complete Blood Count/With Diff Urgent
Comprehensive Metabolic Panel Urgent
05/24/25 Lunch
2000 calorie (17 carb) Diabetic
At Your Request: Limited, Choral Teacher Required
05/24/25 10:[address] [CT Pelvis W/o Iv Contrast] Urgent
Comment: Right pubic rami fx seen on xray
Reason For Exam: Left hip pain s/p fall
05/24/25 12:53
Admit/Transfer Patient As Directed
Co-Sign Provider:
Level of Care: Inpatient admission
Assign to:: Telemetry
Physician / Group: Katty Walters
Diagnosis: left hip fracture
Reason for Telemetry: Chest Pain syndromes
Date to Stop Telemetry: 05/26/25
Time to Stop Telemetry: 11:00
Reason for Hospitalization: left hip fracture
Expected length of stay greater than two midnights?: Yes
ELOS- Estimated Length of Stay in days: 5
I certify the patient meets the requirements for IP care: Yes
PRN Pain Medication Management As Directed
May give lesser potent ordered pain med per pt: Yes
preference::
Protocol:: Medication orders for pain may be administered in a
manner that supports deferring to patient preference
when the pt is:
- Requesting an ordered lesser potent pain medication.
Least to most potent pain medications are defined
as: acetaminophen < NSAID < tramadol < opioids
(morphine, oxycodone, hydromorphone).
- Requesting a lesser dose of the same medication IF
ORDERED.
- Requesting a less intrusive route of administration
if both routes are prescribed by the provider (PO <
IV).
07/31/25 12:58
Code Status As Directed
Resuscitation Status: Do not resuscitate
Reached after discussion with pt or family/Healthcare POA: Yes
DNR Bracelet Application ONCE
05/24/25 14:10
Albuterol [ProAIR HFA INHALER] 2 puff INH R Q6HPRN PRN SOB
Bisacodyl [Dulcolax] 10 mg RECTAL [id number] PRN if mom ineffective
Dextrose 50%-Water [Dextrose 50% Syringe] 12.5 grams IV [id number] PRN
Glucagon [GlucaGen] 1 mg IM PRN PRN
HYDROmorphone [Dilaudid] 0.5 mg IV Q3HPRN PRN
Ipratropium/Albuterol Sulfate [Duoneb] 3 ml INH R QIDPRN PRN SOB
Lorazepam [Ativan] 0.5 mg PO TIDPRN PRN sleep/anxiety
Oxycodone [Roxicodone] 5 mg PO Q4HPRN PRN
05/24/25 14:10
CARDIOLOGY CONSULT Routine
Consulting Provider: Tab Woo
Was physician already notified: Yes
ORTHOPEDIC CONSULT Routine
Consulting Provider: Porter Mccarthy
Was physician already notified: Yes
Activity As Directed
Activity Level: Bedrest
Bedside Glucose Monitoring As Directed
Frequency: AC&HS
Additional Instructions:: Change to q6h if pt on TPN, tube feeding or not eating
Pneumatic Compression Sleeves As Directed
Type: Knee high
Vital Signs As Directed
Frequency: Per unit guidelines
DX Deep Vein Thrombosis Video Routine
05/24/25 16:30
Insulin Aspart Corrective Low [Novolog Flexpen-Low Resistance] See Protocol SC AC
05/24/25 18:00
Sodium Chloride 1,000 gram PO QID
05/24/25 20:00
Budesonide [Pulmicort] 0.5 mg INH R BID
Carvedilol [Coreg] 12.5 mg PO BID
Guaifenesin [Mucinex] 1,200 mg PO Q12
Ranolazine Extended Release [Ranexa Extended Release] 1,000 mg PO BID
05/24/25 22:00
Acetaminophen [Tylenol] 1,000 mg PO TID
Magnesium Hydroxide [Milk of Magnesia] 30 ml PO HSPRN PRN constipation
Melatonin 3 mg PO HS
insulin glargine [Lantus U-100 Insulin] 3 unit SC HS
05/25/25 06:00
Basic Metabolic Panel IN AM
Complete Blood Count/With Diff IN AM
Glycohemoglobin (HgbA1c) IN AM
Magnesium IN AM
05/25/25 08:00
Aspirin Chewable [Low Strength Aspirin] 81 mg PO DAILY
Atorvastatin [Lipitor] 80 mg PO DAILY
Azithromycin [Zithromax] 250 mg PO DAILY
Bupropion(24Hr)Extended Releas [WELLBUTRIN XL (24 hour extended release)] 300 mg PO DAILY
Furosemide [Lasix] 20 mg PO MOWEFR
ISOSORBIDE MONOnitrate ER [Imdur (Extended Release)] 30 mg PO DAILY
Nitroglycerin [Nitro-Dur] 0.2 mg TRANSDERM DAILY
Pantoprazole [Protonix] 40 mg PO DAILY
Polyethylene Glycol Powder [Miralax] 17 grams PO DAILY
Potassium Chloride [KCl] 20 meq PO DAILY
Prednisone [Deltasone] 10 mg PO DAILY
Sertraline HCl [Zoloft] 200 mg PO DAILY
Spironolactone [Aldactone] 12.5 mg PO DAILY
Tamsulosin [Flomax] 0.4 mg PO DAILY
05/26/25 11:00
DC Protocol for Telemetry ONCE
Abnormal Lab Results
05/24/25
09:15
RBC 3.57 L 10^6/uL
(4.70-6.10)
Hgb 10.0 L g/dL
(13.0-18.0)
Hct 32.8 L %
(39.0-52.0)
MCHC 30.5 L g/dL
(33.0-37.0)
Abs Immat Gran (auto) 0.1 H 10^3/uL
(0-0.05)
Absolute Neuts (auto) 8.3 H 10^3/uL
(1.4-6.5)
Absolute Lymphs (auto) 0.6 L 10^3/uL
(1.2-3.4)
Absolute Monos (auto) 1.2 H 10^3/uL
(0.1-0.6)
Immature Gran % 1.0 H %
(0-0.5)
Neutrophils % 78.1 H %
(42.2-75.2)
Lymphocytes % 5.8 L %
(20.5-51.1)
Monocytes % 11.0 H %
(1.7-9.3)
Carbon Dioxide 32 H mmol/L
(22-30)
Creatinine 0.6 L mg/dL
(0.7-1.3)
Glucose 134 H mg/dl
(70-99)
05/24/25 09:15
05/24/25 09:15
Vital Signs
Initial and Last Documented VS:
Initial Vital Signs
Pulse Ox
98
05/24/25 08:18
Last Documented Vital Signs
Temp Pulse Resp BP Pulse Ox
98.8 F 85 16 178/65 99
05/24/25 14:25 05/24/25 14:25 05/24/25 14:05/24/25 14:25 05/24/25 16:07
MDM/Problems Addressed
Differential Diagnosis Includes:
Not limited to: Hip fracture, hip dislocation, knee fracture, ligamentous injury, contusion, etc.
MDM/Problems Addressed:
70-year-old male with multiple chronic medical conditions on home O2 presenting to the emergency department with left hip pain following mechanical fall yesterday. Patient apparently had fall last night and found to have fracture of left hip on
outpatient x-ray. He is unsure if he struck his head. Reports pain in his left hip and left knee and very limited range of motion. No headache, neck pain, back pain, numbness/tingling or groin paresthesias.
Patient mildly hypertensive, otherwise stable vital signs on arrival. He is on 3 L O2�which is his baseline. Physical exam as above. Patient alert and oriented x 3. He does have healing laceration with sutures in place and appearance of healing
ecchymoses to right infraorbital region from fall about 1 week ago. No evidence of chest, abdominal, or neck trauma. He has no neurologic symptoms concerning for cauda equina. He has pain to palpation of left hip and very limited range of motion.
Unable to obtain x-ray report that was done prior to arrival. ED plan: Labs, head CT, x-ray left hip and left knee. Tylenol for pain as he received his scheduled oxycodone prior to arrival.
Update: I did remove sutures in right frontal scalp that were placed 9 days ago without difficulty. Laceration without evidence of cellulitis and appears to be healing well.
Update: Labs reviewed. No clinically significant abnormalities. Head CT without acute findings. X-ray of the knee without evidence of fracture. Left hip x-ray reveals no evidence of acute fracture of left hip however does note superior/inferior
fractures of right pubic rami (unsure if this is fracture that prior studies found outpatient). Patient has no tenderness in this area. Given persistent pain in left hip�will proceed with CT of pelvis.
Update: Pelvis CT reveals a mildly displaced left intertrochanteric hip fracture as well as confirms comminuted fractures involving superior/inferior right pubic rami. Discussed with orthopedics. Patient will require admission to the hospital for
further management. Patient excepted to hospitalist service in stable condition. Orthopedics aware
Chronic conditions affecting care:
Hypertension, COPD on 3 L nasal cannula
Acute Exacerbation and/or Progression of Chronic Illness:
Acutely hypertensive
*Radiology
Radiology exam reviewed: preliminary read by ED provider and radiology read reviewed
*Pulse Oximetry
SaO2: 98
Nasal Cannula flow liters per minute: 3
Patient hypoxic: no
*EKG
Interpreted by ED Provider?: Yes
EKG Intrepretation Date: 05/24/25
Interpretation: abnormal
Comparison EKG: changes noted
Heart Rate: 86
Rate: normal
Rhythm: sinus
[place]: normal axis
Interval: long QT
QRS Pattern: right bundle branch block
Ischemia: non-specific ST changes
*Preparatory Technician Interpretation
Rate: normal
Interpretation: normal
Heart Rate: 86
Rhythm: sinus
*Critical Care Note
Total Time (30-74mins, 75-104mins- exclusive of procedures): Not Applicable
Patient Management
Discussion with other providers: Hospitalist and Industrial Seamstress (Case discussed with orthopedics)
ED Attending Note
-
Portions of this chart may have been created with voice recognition software.� Occasional wrong word or��sound alike� substitutions may have occurred due to the inherent limitations of voice recognition software.
Discharge Plan
Departure
Patient Disposition: Admit
Date of Disposition: 05/24/25
Time of Disposition: 12:10
Presentation/result/management discussed w/ accepting MD/DO: Hospitalist
Discharge Problem:
Closed intertrochanteric fracture of left femur, Closed fracture of right inferior pubic ramus, Closed fracture of right superior pubic ramus
Interventions
Interventions:
*Risk Screen - Suicide Last Done: 05/24/25 08:19
*General Assessment Last Done: 05/24/25 08:19
*Neglect/Abuse Screening Last Done: 05/24/25 08:19
*ED- Fall Risk Assessment Last Done: 05/24/25 14:15
*ED COVID-19 Vaccine History Last Done: 05/24/25 08:19
*Nursing Disposition Last Done: 05/24/25 14:15
ED-Musculoskeletal Assessment Last Done: 05/24/25 08:19
Discharge Date and Time
Discharge Date/Time: 05/24/25 14:15
[2025-05-24 09:25] LABS: Hematocrit 32.8 % (39.0-52.0); Hemoglobin 10.0 g/dL (13.0-18.0); Mean Corp Hgb Conc. 30.5 g/dL (33.0-37.0); Mean Corpuscular Volume 91.9 fL (80.0-94.0); Nucleated Red Blood Cells % 0 % (-); Platelet Count 206 10^3/uL (130-400); Red Cell Dist. Width 13.3 % (11.5-14.5)
[2025-05-24 09:44] LABS: ALT (SGPT) 19 U/L (0-50); AST (SGOT) 18 U/L (17-59); Albumin 3.9 g/dl (3.5-5.0); Alkaline Phosphatase 85 U/L (38-126); Blood Urea Nitrogen 15 mg/dl (9-20); Calcium 8.8 mg/dl (8.4-10.2); Carbon Dioxide 32 mmol/L (22-30); Chloride 101 mmol/L (98-107); Estimated Creatinine Clearance 106 ml/min; Glucose 134 mg/dl (70-99); Potassium 4.0 mmol/L (3.5-5.1); Sodium 137 mmol/L (135-145); Total Protein 6.3 g/dl (6.3-8.2); eGFR > 60.00
--- NOTE | 2025-05-24 12:22 | HPS.HSE ---
Family Physician
-
Family Physician: Renan Pedroza DO
Chief Complaint
-
status post fall and left hip pain
History of Present Illness
Mr. Justice Bernard is a 70 yo man with hx CAD (CABG 1998), recovered ischemic cardiomyopathy, PAD s/p AAA repair and bilateral femoral artery endarterectomy 07/2018, paroxysmal afib, DM II, HTN, HLD, COPD on chronic O2 2-3L, hx daily alcohol use now
abstinent, former smoker, recent admission for ACS where decision made for medical therapy (uptitrated Coreg, started on Plavix) presents to the ER post fall last night.
Patient usually uses a rollator or a wheelchair to get around. He lives at [facility]. He states last night he tripped on himself. He did not hit his head (He did have a fall 2 weeks ago where hit head and had a CT done in ER). He denies
chest pain or palpitations preceding event.
Patient states since last hospitalization he has been largely chest pain free. He denies recent fevers/chills. No cough congestion. Reports breathing at baseline. No nausea/vomiting/diarrhea. No LE swelling. No rash.
Medical History
Past Medical History
Past Medical History: Reports CAD, COPD, IDDM and Other
Additional Past Medical History:
CAD (CABG 1998), recovered ischemic cardiomyopathy, PAD s/p AAA repair and bilateral femoral artery endarterectomy 07/2018, paroxysmal afib, DM II, HTN, HLD, COPD on chronic O2 2-3L, hx daily alcohol use now abstinent, former smoker
Past Surgical History: Reports Other (CABG)
Social History
Tobacco: Former Smoker
Drug: None
Personal: Single
Living: Snf
Family History
Family History: Not pertinent
Allergies / Home Medications
Allergies reflects when Allergies were last updated in [employer].
Home Medications with original date entered in [employer]
Allergy/Medication List:
Allergies
Allergy/AdvReac Type Severity Reaction Status Date / Time
lisinopril Allergy throat Verified 05/15/25 20:39
closes
Home Medications
albuterol sulfate 90 mcg/actuation aerosol inhaler 2 puff inhalation R Q6HPRN PRN SOB 07/02/23
atorvastatin 80 mg tablet 80 mg PO DAILY High cholesterol 07/02/23
ipratropium 0.5 mg-albuterol 3 mg (2.5 mg base)/3 mL nebulization soln 3 ml inhalation R QIDPRN PRN SOB 07/02/23
pantoprazole 40 mg tablet,delayed release 40 mg PO DAILY Gastrointestinal issue 07/02/23
tamsulosin 0.4 mg capsule 0.4 mg PO DAILY BPH 07/02/23
prednisone 10 mg tablet 10 mg PO DAILY Anti-inflammatory #0 tabs 09/10/23
acetaminophen 325 mg tablet 650 mg PO Q4HPRN PRN mild pain/fever 12/08/24
bisacodyl 10 mg rectal suppository 10 mg UT [id number] PRN if mom ineffective 12/08/24
magnesium hydroxide 400 mg/5 mL oral suspension (Milk of Magnesia) 30 ml PO HSPRN PRN constipation 12/08/24
fluticasone propionate 50 mcg/actuation nasal spray,suspension 2 spray intranasal DAILYPRN PRN allergies 02/23/25
budesonide 0.5 mg/2 mL suspension for nebulization 0.5 mg inhalation R BID copd 04/13/25
insulin aspart U-100 100 unit/mL (3 mL) subcutaneous pen 3 unit (0.03 mL) SC AC Diabetes #0 mL 04/16/25
nitroglycerin 0.2 mg/hr transdermal 24 hour patch 0.2 mg transdermal DAILY #0 ea 04/16/25
ascorbic acid (vitamin C) 500 mg tablet (Vitamin C) 500 mg PO DAILY Supplement #0 tabs 04/18/25
aspirin 81 mg chewable tablet (Children's Aspirin) 81 mg PO DAILY Blood clot prevention/tx #1 tab 04/18/25
bupropion HCl 300 mg 24 hr tablet, extended release 300 mg PO DAILY Depression #0 tabs 04/18/25
dextromethorphan-guaifenesin 30 mg-600 mg tablet extended appgrvf65 hr (Mucinex DM) 1 tab PO Q12H Congestion #0 tabs 04/18/25
furosemide 20 mg tablet 20 mg PO MOWEFR Fluid retention/Swelling #0 tabs 04/18/25
insulin glargine 100 unit/mL subcutaneous solution (Lantus U-100 Insulin) 7 unit (0.07 mL) SC HS Diabetes #0 mL 04/18/25
melatonin 3 mg tablet 3 mg PO HS Sleep #0 tabs 04/18/25
polyethylene glycol 3350 17 gram oral powder packet 17 g PO DAILY Constipation #0 ea 04/18/25
potassium chloride 20 mEq tablet,extended release(part/cryst) 20 meq PO DAILY Electrolyte Repletion #0 tabs 04/18/25
spironolactone 25 mg tablet 12.5 mg (1/2 x 25 mg) PO DAILY Heart disease/condition #0 tabs 04/18/25
sertraline 100 mg tablet 200 mg PO DAILY 05/07/25
sodium chloride 1 gram tablet 1,000 mg PO QID 05/07/25
carvedilol 12.5 mg tablet 12.5 mg PO BID #60 tabs 05/10/25
clopidogrel 75 mg tablet 75 mg PO DAILY #30 tabs 05/10/25
isosorbide mononitrate 30 mg tablet,extended release 24 hr 30 mg PO DAILY #30 tabs 05/10/25
lorazepam 0.5 mg tablet 0.5 mg PO TIDPRN PRN sleep/anxiety #6 tabs 05/10/25
oxycodone 5 mg tablet 2.5 mg (1/2 x 5 mg) PO Q4HPRN PRN moderate-severe pain #15 tabs 05/10/25
ranolazine 500 mg tablet,extended release,12 hr 1,000 mg (2 x 500 mg) PO BID #120 tabs 05/10/25
azithromycin 250 mg tablet 250 mg PO DAILY shelter 05/24/25
Review of Systems
-
History Source: Patient
A 12 point ROS was completed and negative except as noted: Yes
Physical Exam
Vital Signs
Vital Signs
Temp Pulse Resp BP Pulse Ox
98.1 F 87 20 148/86 98
05/24/25 08:19 05/24/25 08:19 05/24/25 08:19 05/24/25 08:19 05/24/25 09:16
Physical Exam
General: No Apparent Distress and Other (midly tachypneic with prolonged expiration )
HEENT: PERRLA and Other (bruising noted along left forehead )
Respiratory: Decreased Breath Sounds; No Wheezes
Cardiac: S1/S2 and Regular Rhythm
GI: Soft and Non Tender
Musculoskeletal: No Edema
Skin: Warm and Dry; No Rash
Neuro: AO x 3
Psych: Calm
Laboratory Results
-
05/24/25 09:15
05/24/25 09:15
Laboratory Results
Total Bilirubin 0.6 mg/dl (0.2-1.3) 05/24/25 09:15
AST 18 U/L (17-59) 05/24/25 09:15
ALT 19 U/L (0-50) 05/24/25 09:15
Alkaline Phosphatase 85 U/L (38-126) 05/24/25 09:15
Data Reviewed
-
Diagnostic Radiology: Report Reviewed by me
Lab Data: Labs Reviewed by me
Impression/Plan
-
Mr. Justice Bernard is a 70 yo man with hx CAD (CABG 1998), recovered ischemic cardiomyopathy, PAD s/p AAA repair and bilateral femoral artery endarterectomy 07/2018, paroxysmal afib, DM II, HTN, HLD, COPD on chronic O2 2-3L, hx daily alcohol use now
abstinent, former smoker, recent admission for ACS where decision made for medical therapy (uptitrated Coreg, started on Plavix) presents to the ER post fall last night.
Triage VS: T 98.1, P 87, R 20, BP 148/86, SpO2 97%
LABS: WBC 10.6, Hg 10.0, PLT 206, Na 137, K+ 4.0, CO2 32, Cr 0.6, Glucose [address]
IMPRESSION:
No acute intracranial abnormality.
HIP X-RAY
IMPRESSION:
Fractures of the RIGHT superior and inferior pubic rami, new compared to the prior CT from 12/05/2024.
KNEE X-RAY
IMPRESSION:
Limited study with no gross fracture appreciated.
Densely calcified distal SFA and popliteal arteries.
PELVIS CT
IMPRESSION:
Mildly displaced LEFT intertrochanteric hip fracture.
Acute, comminuted fractures also involving the superior and inferior right pubic rami.
Additional findings above.
Left Intertrochanteric Hip Fracture
-admit to telemetry
-Orthopedics consulted
-Cardiology consult requested for surgical clearance given recent NSTEMI
-Pulmonary consult requested for surgical clearance given history of severe COPD
-pain control: oxy/Dilaudid PRN
-bedrest
-SCD's for DVT PPx pre-op
-hold Plavix
-NPO order not placed as patient will need Plavix washout to be determined by Orthopedics.
Superior and Inferior right pubic Rami Fracture
-ortho consulted as above
-PT post OR once cleared
-pain control
Coronary Artery Disease
CABG 1998
Recent admission for NSETEMI treated medically
Essential Hypertension
Hyperlipidemia
-continue STITCH BONDING MACHINE TENDER HELPER regimen:
Asa 81mg PO QD
Atorvastatin 80mg PO QD
Coreg 12.5mg PO BID
Imdur 30mg PO QD
Transdermal Nitro
Ranolazine 1G BID
-Hold Plavix
Severe COPD
Chronic Hypoxic Respiratory Insufficiency on 3L
-patient without active wheezing on exam.
-STITCH BONDING MACHINE TENDER HELPER Prednisone 10mg PO QD - monitor BP closely post-op, may need stress dose steroids
-STITCH BONDING MACHINE TENDER HELPER Azithromycin 250mg PO QD
-STITCH BONDING MACHINE TENDER HELPER inhalers
-Mucinex BID
Hyponatremia
-Na 137 on admit STITCH BONDING MACHINE TENDER HELPER Sodium tabs 1G QID
Recovered Ischemic Cardiomyopathy
-STITCH BONDING MACHINE TENDER HELPER Lasix MWF and Spironolactone
PAD s/p AAA repair and bilateral femoral artery endarterectomy 07/2018
paroxysmal atrial Fibrillation s/p ablation
-per patient's choice, not on OAC
BPH - STITCH BONDING MACHINE TENDER HELPER Flomax
Anxiety/Depression
-STITCH BONDING MACHINE TENDER HELPER Wellbutrin, Zoloft
IDDM
-hold pre-meal insulin for now (takes 3 units AC at home)
-Takes Lantus 7 units qhs at home, order half dose for now
GERD - STITCH BONDING MACHINE TENDER HELPER PPI
DVT PPx - SCD pre-op
DNR -confirmed on admission
76 minutes spent on patient care
--- NOTE | 2025-05-24 13:35 | CON.CAR ---
Addendum entered and electronically signed by Tab Woo MD 05/24/25 18:26:
69-year-old medically complex with longstanding CAD admitted now after a mechanical fall with left hip and pelvic ramus fracture. He is a long-term resident of [facility]. Currently residing at [facility].
PMH/PSH: Recurrent non-ST segment elevation AL's this year, typically troponin level approximately 5. Chronic HFrEF with mildly reduced EF, CAD with CABG 1998, non-STEMI with patent grafts but jeopardized duckwater circulation 2019, nonsustained VT,
orthostasis, atrial flutter with ablation 2017, PAF, not anticoagulated, PAD, endovascular AAA repair, bilateral femoral endarterectomies and profundoplasty 2017, diabetes, hypertension, hyperlipidemia, right bundle branch block duodenal ulcer with
microperforation 2017, history of alcohol abuse now abstinent, cholecystectomy, tonsillectomy, IBS
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
Medications at admission: Acetaminophen, albuterol, vitamin C, aspirin 81 mg a day, atorvastatin 80 mg a day, azithromycin 250 mg daily, budesonide, Wellbutrin ER 300 mg a day, carvedilol 12.5 mg twice daily, clopidogrel 75 mg a day, furosemide 20
mg Wednesday and Wednesday, Lantus, albuterol nebs, isosorbide mononitrate 30 mg a day, pantoprazole, MiraLAX, potassium 20 mill equivalents daily, prednisone 10 mg a day, ranolazine 1000 mg daily, sertraline, spironolactone 12.5 mg daily,
tamsulosin 0.4 mg daily
167/98 pulse 94, respiratory rate 16, afebrile, sats are 98%, sedated, states he is comfortable moved, lungs are diminished but relatively clear, he is somewhat tachypneic, cardiac exam notable for regular rate and rhythm without murmurs, JVD
difficult to assess, not much edema, external rotation of leg.
Femoral x-ray: Left femoral intertrochanteric fracture
Pelvic CT comminuted right superior and inferior pubic rami fracture
Hemoglobin 10.0, BUN and creatinine are 15 and 0.6, potassium is 4.0, proBNP and troponin are pending
ECG: Sinus rhythm, right bundle branch block, PVC, PAC, chronic ST segment depression across the precordium
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
collaterals, feeding left to right collaterals to PDA and distal circumflex, GAR to LAD widely patent proximal to mid LAD is occluded previously visualized diagonal no longer patent but fills via left to left collaterals, JONO Y graft from mid GAR
to OM is widely patent. There is a 95% stenosis in the duckwater OM just distal to the anastomosis, EF 40% posterior basal hypokinesis
Echo November 2024: EF 50-55% mild LVH, no significant valvular heart disease
Impression:
Left hip intertrochanteric fracture with fracture of pelvic ramus
CAD status post CABG
Recent non-ST segment elevation AL's
Mild ischemic cardiomyopathy
COPD/former smoker on 3 L nasal cannula
History of HFpEF/HFmrEF
Orthostatic hypotension
History of nonsustained VT
Remote PAF, not anticoagulated right bundle branch block
Hypertension
Hypercholesterolemia
History of alcoholism abuse
Limited DNR
detention resident
Endovascular abdominal aortic aneurysm repair
History of peptic ulcer disease
Plan:
He presents now with pelvic and left hip fracture with a jeopardized obtuse marginal demonstrated by cardiac cath in March 2025. He has had 3 non-ST segment elevation AL's in the preceding 6 months related to this stenosis. LV function is still
relatively preserved.
Suspect his troponin may already be elevated and this would be his fourth non-ST segment elevation AL. Will check proBNP and troponin levels. His EKG is unchanged.
It would be reasonable to consider palliative care or hospice in this circumstance and treat his hip fracture nonsurgically. However, Vinayak has consistently been unwilling to consider a transition and level of care.
His RCRI is 2, implying a 5% risk of major periop cardiac event, but in reality I think his risk is much higher given specifics of his case not included in the RCRI.
The likelihood of perioperative myocardial infarction following ORIF of left hip is high. If so AL would probably be moderate in size. I suspect he would survive this however. As a result, his perioperative cardiac risk is high but not
prohibitive provided he understands all the above.
The patient proceeds to the OR, continue carvedilol and aspirin
Will review in a.m. Await proBNP and troponin.
Original Note:
Consultation
Consultation Request
Date/Time Consultation Performed: 05/24/25
Requesting Provider: Dr. Walters
Performing Provider: Danii Quiroga PA-C for Dr. MILA Woo
Reason for Consultation: cardiac clearance, fall with hip fracture
Medical History
-
Chief Complaint: fall
History of Present Illness:
Patient is a 70 yo M with a longstanding h/o CAD and angina, well known to our service. During a previous cath in 2019 his LAD is functionally occluded with bridging collaterals, the GAR to LAD was patent, the diagonals were jeopardized filling
retrograde, the circumflex was occluded, and OM branch was filling via left to left collaterals, the JONO off the GAR was patent and the RCA was nondominant with a 90% proximal stenosis. He was being medically managed, but this has proved
problematic due to orthostasis. Had repeat cardiac cath 04/17/2025 that showed new high-grade stenosis in the distal OM just beyond the JONO anastomosis, his case was discussed among interventional cardiology and it was felt that PCI of the OM could
be attempted, but if a complication were to occur they would be limited treatment options and patient instead was started on Ranexa 500 mg BID for ongoing attempts at medical management. He was then admitted earlier this month for chest discomfort
and hypertension and Ranexa was increased to 1000 mg twice daily. Plavix was also added to his regimen. Then on 05/15 he presented to ER due to a fall with 6 cm scalp laceration. He reportedly tripped and fell out of bed, but denies dizziness or
syncope. Then last evening he also had a fall where there go on his left side, but is not aware of the details of what happened and had left hip pain. He again denies dizziness or syncope. He had an outpatient x-ray today which showed a fracture
of his left hip and was referred to the ER for treatment. Denies chest pain or shortness of breath.
PMH:
CAD
s/p CABG 1998 at [facility] with GAR to LAD and free JONO Y graft from GAR to OM
cath showed progression of duckwater CAD however patient bypass grafts 12/2019
cath 03/2025 with new OM lesion, felt to be high risk for intervention, medically managed
History of recovered ischemic cardiomyopathy, EF 50 to 55% by echo 11/2024
Chronic HFpEF
h/o NSVT
Chronic orthostatic hypotension
Sinus tachycardia
Paroxysmal atrial flutter
s/p ablation in 2017
Paroxysmal atrial fibrillation
diagnosed during 12/2019 admission without known recurrence
Not chronically anticoagulated due to patient's choice and low burden of atrial arrhythmia
PVD
h/o endovascular AAA repair and bilateral femoral artery endarterectomy and profundoplasty 07/2018
Type 2 diabetes
Hypertension
Hypercholesterolemia
Chronic right bundle-branch block
COPD on chronic supp O2, 3L
History of duodenal ulcer with microperforation in 2018
h/o daily ETOH use now abstinent
Former smoker
DNR
Past Medical History
Past Medical History: Other (in HPI)
Past Surgical History: Cardiac (CABG 1998, atrial flutter ablation 2017), Cholecystectomy, Tonsilectomy and Other (endovascular AAA repair 2016)
Social History
Tobacco: Former Smoker
Alcohol: None (he says he stopped drinking)
Drug: None
Personal: Single
Living: Half-Way
Family History
Family History: CAD and Cancer (lung cancer)
Allergies / Home Medications
Allergy/AdvReac Type Severity Reaction Status Date / Time
lisinopril Allergy throat Verified 05/15/25 20:39
closes
�Medication �Instructions �Recorded �Confirmed �Type
albuterol sulfate 90 mcg/actuation 2 puff inhalation R Q6HPRN PRN SOB 07/02/23 05/24/25 History
aerosol inhaler
atorvastatin 80 mg tablet 80 mg PO DAILY High cholesterol 07/02/23 05/24/25 History
ipratropium 0.5 mg-albuterol 3 mg 3 ml inhalation R QIDPRN PRN SOB 07/02/23 05/24/25 History
(2.5 mg base)/3 mL nebulization
soln
pantoprazole 40 mg tablet,delayed 40 mg PO DAILY Gastrointestinal 07/02/23 05/24/25 History
release issue
tamsulosin 0.4 mg capsule 0.4 mg PO DAILY BPH 07/02/23 05/24/25 History
prednisone 10 mg tablet 10 mg PO DAILY Anti-inflammatory 09/10/23 05/24/25 Rx
#0 tabs
acetaminophen 325 mg tablet 650 mg PO Q4HPRN PRN mild 12/08/24 05/24/25 History
pain/fever
bisacodyl 10 mg rectal suppository 10 mg MN [id number] PRN if mom 12/08/24 05/24/25 History
ineffective
magnesium hydroxide 400 mg/5 mL 30 ml PO HSPRN PRN constipation 12/08/24 05/24/25 History
oral suspension (Milk of Magnesia)
fluticasone propionate 50 2 spray intranasal DAILYPRN PRN 02/23/25 05/24/25 History
mcg/actuation nasal allergies
spray,suspension
budesonide 0.5 mg/2 mL suspension 0.5 mg inhalation R BID copd 04/13/25 05/24/25 History
for nebulization
insulin aspart U-100 100 unit/mL 3 unit (0.03 mL) SC AC Diabetes #0 04/16/25 05/24/25 Rx
(3 mL) subcutaneous pen mL
nitroglycerin 0.2 mg/hr 0.2 mg transdermal DAILY #0 ea 04/16/25 05/24/25 Rx
transdermal 24 hour patch
ascorbic acid (vitamin C) 500 mg 500 mg PO DAILY Supplement #0 tabs 04/18/25 05/24/25 Rx
tablet (Vitamin C)
aspirin 81 mg chewable tablet 81 mg PO DAILY Blood clot 04/18/25 05/24/25 Rx
(Children's Aspirin) prevention/tx #1 tab
bupropion HCl 300 mg 24 hr tablet, 300 mg PO DAILY Depression #0 tabs 04/18/25 05/24/25 Rx
extended release
dextromethorphan-guaifenesin 30 1 tab PO Q12H Congestion #0 tabs 04/18/25 05/24/25 Rx
mg-600 mg tablet extended
hr (Mucinex DM)
furosemide 20 mg tablet 20 mg PO MOWEFR Fluid 04/18/25 05/24/25 Rx
retention/Swelling #0 tabs
insulin glargine 100 unit/mL 7 unit (0.07 mL) SC HS Diabetes #0 04/18/25 05/24/25 Rx
subcutaneous solution (Lantus mL
U-100 Insulin)
melatonin 3 mg tablet 3 mg PO HS Sleep #0 tabs 04/18/25 05/24/25 Rx
polyethylene glycol 3350 17 gram 17 g PO DAILY Constipation #0 ea 04/18/25 05/24/25 Rx
oral powder packet
potassium chloride 20 mEq 20 meq PO DAILY Electrolyte 04/18/25 05/24/25 Rx
tablet,extended release(part/cryst) Repletion #0 tabs
spironolactone 25 mg tablet 12.5 mg (1/2 x 25 mg) PO DAILY 04/18/25 05/24/25 Rx
Heart disease/condition #0 tabs
sertraline 100 mg tablet 200 mg PO DAILY 05/07/25 05/24/25 History
sodium chloride 1 gram tablet 1,000 mg PO QID 05/07/25 05/24/25 History
carvedilol 12.5 mg tablet 12.5 mg PO BID #60 tabs 05/10/25 05/24/25 Rx
clopidogrel 75 mg tablet 75 mg PO DAILY #30 tabs 05/10/25 05/24/25 Rx
isosorbide mononitrate 30 mg 30 mg PO DAILY #30 tabs 05/10/25 05/24/25 Rx
tablet,extended release 24 hr
lorazepam 0.5 mg tablet 0.5 mg PO TIDPRN PRN sleep/anxiety 05/10/25 05/24/25 Rx
#6 tabs
oxycodone 5 mg tablet 2.5 mg (1/2 x 5 mg) PO Q4HPRN PRN 05/10/25 05/24/25 Rx
moderate-severe pain #15 tabs
ranolazine 500 mg tablet,extended 1,000 mg (2 x 500 mg) PO BID #120 05/10/25 05/24/25 Rx
release,12 hr tabs
azithromycin 250 mg tablet 250 mg PO DAILY fci 05/24/25 05/24/25 History
Review of Systems
-
History Source: Patient
All other systems: Negative unless noted
Physical Exam
Vital Signs
Temp Pulse Resp BP Pulse Ox
98.1 F 87 20 148/86 98
05/24/25 08:19 05/24/25 08:19 05/24/25 08:19 05/24/25 08:19 05/24/25 09:16
Lab Results
05/24/25 09:15
05/24/25 09:15
GEN: No distress, awake, alert, oriented x3. on supp O2. chronically ill appearing
HEENT: supple, anicteric, mmm, eomi
LUNGS: Scattered expiratory wheezes
CV: Reg, S1/S2, 1/6 syst LSB, no murmur
ABD: soft, BS+, NT/ND
EXT: No cyanosis, clubbing, edema
NEURO: Gross non-focal
SKIN: Warm, pink, dry. No rash. Scabbed laceration to scalp. healing ecchymoses of R eye. scattered B/L UE ecchymoses in various stages of healing
Impression / Plan
-
Primary Electrolysis Needle Operator: Dr. MILA Woo
Assessment:
Presentation with fall
L hip fracture
CAD
s/p CABG 1998 at [facility] with GAR to LAD and free JONO Y graft from GAR to OM
cath showed progression of duck[place] CAD however patient bypass grafts 12/2019
cath 03/2025 with new OM lesion, felt to be high risk for intervention, medically managed
History of recovered ischemic cardiomyopathy, EF 50 to 55% by echo 11/2024
Chronic HFpEF
h/o NSVT
Chronic orthostatic hypotension
Sinus tachycardia
Paroxysmal atrial flutter
s/p ablation in 2017
Paroxysmal atrial fibrillation
diagnosed during 12/2019 admission without known recurrence
Not chronically anticoagulated due to patient's choice and low burden of atrial arrhythmia
PVD
h/o endovascular AAA repair and bilateral femoral artery endarterectomy and profundoplasty 07/2018
Type 2 diabetes
Hypertension
Hypercholesterolemia
Chronic right bundle-branch block
COPD on chronic supp O2, 3L
History of duodenal ulcer with microperforation in 2017
h/o daily ETOH use now abstinent
Former smoker
DNR
ECHO 09/06/23: Definity used, EF 45 to 50%, global hypokinesis, stage I diastolic dysfunction, mild MR, trace TR, PAP 25 to 30 mmHg
Echo 12/11/2024: EF 50 to 55%, no regional wall motion abnormalities, mild concentric LVH, no significant valvular disease
Echo 02/23/2025: EF 50%, mild to moderate concentric LVH, no significant valvular disease
Cath 04/17/25: GAR-LAD patent, JONO Ygraft GAR to OM with 95% distal stenosis.
Plan:
- Patient with 2 admissions in the last 2 months for chest pain and hypertension. Cardiac catheterization 04/18 with new OM stenosis, felt to be high risk for PCI and therefore medically managed. Antianginal regimen has been uptitrated without
recurrence of chest pain. He does have history of orthostasis in addition, complicating aggressive uptitration
- Had fall 05/15/2025 with scalp laceration requiring ER visit. He denies preceding dizziness, or syncope associated with event
- Now presents back with another fall and with left hip fracture by pelvis CT. Denies preceding dizziness or syncope with this event as well. head CT without acute abnormality
- Denies chest pain, shortness of breath
- EKG appears stable compared to prior
- Recent echo 02/2025 with EF 50% as above
- Hgb 10. Holding Plavix. Continue aspirin
- Given above, he is high cardiovascular risk for any procedures, however given necessity of surgery, risk is not prohibitive. I did discuss this with patient 05/24.
- He is presently a DNR. Historically he has not been ready for hospice.
Data Reviewed
-
EKG: Tracing Personally Visualized and interpreted
CT Scan: Report Reviewed by me
Medical Tests (Nuc Med, Echo etc): Report Reviewed by me
Labs: Labs Reviewed by me
Old Records: Reviewed
[2025-05-24 13:44] VITALS: BP 157/78
[2025-05-24 14:25] VITALS: BP 178/65
[2025-05-24 14:48] VITALS: BMI 27.0
[2025-05-24] MEDS: DILAUDID 0.5 MG IV ×2 (15:30→21:13)
--- NOTE | 2025-05-24 16:04 | CON.PUL ---
Consultation
Consultation Request
Date/Time Consultation Requested: 05/24/2025
Date/Time Consultation Performed: 05/24/2025
Requesting Provider: Dr. Walters
Performing Provider: Dr. Arthur Nolen
Reason for Consultation: Severe COPD-preparatory assessment
Medical History
-
Chief Complaint: Dyspnea
History of Present Illness:
70-year-old with underlying severe COPD on oxygen followed by Dr. Landeros as well as hypertension, hyperlipidemia, CAD, recovered ischemic cardiomyopathy, peripheral arterial disease status post AAA repair and bilateral femoral artery endarterectomy
in 2018, prior history of alcohol abuse, former smoker paroxysmal atrial fibrillation presented after sustaining a fall with subsequent left hip pain.
Patient ambulates with a walker or a wheelchair to get around.
USP resting in [facility].
Patient tripped himself.
Diagnosed with left intertrochanteric hip fracture.
We were consulted for preoperative reassessment.
He reports that his pulmonary symptoms are at baseline.
No recent antibiotics or prednisone for acute exacerbation of COPD.
Oxygenation at baseline.
Past Medical History
Past Surgical History: Other (Endovascular AAA repair 2017. Femoral endarterectomy 2016. Lap cholecystectomy 2014. CABG 1998. Atrial flutter ablation 2017.)
Social History
Tobacco: Smoker ([id number] 1 month ago)
Drug: None
Living: With Family
Occupational Exposures: No known tuberculosis exposure
Environmental Exposures: No known asbestos exposure
Family History
Family History: Other (Mother-lung cancer and CAD. Father-CAD.)
Allergies / Home Medications
Allergies
Allergy/AdvReac Type Severity Reaction Status Date / Time
lisinopril Allergy throat Verified 05/15/25 20:39
closes
Home Medications
�Medication �Instructions �Recorded �Confirmed �Last Taken �Type
albuterol sulfate 90 mcg/actuation 2 puff inhalation R Q6HPRN PRN SOB 07/02/23 05/24/25 Unknown History
aerosol inhaler
atorvastatin 80 mg tablet 80 mg PO DAILY High cholesterol 07/02/23 05/24/25 05/06/25 History
ipratropium 0.5 mg-albuterol 3 mg 3 ml inhalation R QIDPRN PRN SOB 07/02/23 05/24/25 05/03/25 History
(2.5 mg base)/3 mL nebulization
soln
pantoprazole 40 mg tablet,delayed 40 mg PO DAILY Gastrointestinal 07/02/23 05/24/25 05/07/25 History
release issue
tamsulosin 0.4 mg capsule 0.4 mg PO DAILY BPH 07/02/23 05/24/25 05/06/25 History
prednisone 10 mg tablet 10 mg PO DAILY Anti-inflammatory 09/10/23 05/24/25 05/06/25 Rx
#0 tabs
acetaminophen 325 mg tablet 650 mg PO Q4HPRN PRN mild 12/08/24 05/24/25 04/13/25 05:09 History
pain/fever
bisacodyl 10 mg rectal suppository 10 mg DE [id number] PRN if mom 12/08/24 05/24/25 Unknown History
ineffective
magnesium hydroxide 400 mg/5 mL 30 ml PO HSPRN PRN constipation 12/08/24 05/24/25 Unknown History
oral suspension (Milk of Magnesia)
fluticasone propionate 50 2 spray intranasal DAILYPRN PRN 02/23/25 05/24/25 04/12/25 12:30 History
mcg/actuation nasal allergies
spray,suspension
budesonide 0.5 mg/2 mL suspension 0.5 mg inhalation R BID copd 04/13/25 05/24/25 05/06/25 History
for nebulization
insulin aspart U-100 100 unit/mL 3 unit (0.03 mL) SC AC Diabetes #0 04/16/25 05/24/25 05/06/25 Rx
(3 mL) subcutaneous pen mL
nitroglycerin 0.2 mg/hr 0.2 mg transdermal DAILY #0 ea 04/16/25 05/24/25 05/06/25 Rx
transdermal 24 hour patch
ascorbic acid (vitamin C) 500 mg 500 mg PO DAILY Supplement #0 tabs 04/18/25 05/24/25 05/06/25 Rx
tablet (Vitamin C)
aspirin 81 mg chewable tablet 81 mg PO DAILY Blood clot 04/18/25 05/24/25 05/06/25 Rx
(Children's Aspirin) prevention/tx #1 tab
bupropion HCl 300 mg 24 hr tablet, 300 mg PO DAILY Depression #0 tabs 04/18/25 05/24/25 05/06/25 Rx
extended release
dextromethorphan-guaifenesin 30 1 tab PO Q12H Congestion #0 tabs 04/18/25 05/24/25 05/06/25 Rx
mg-600 mg tablet extended
[id number] hr (Mucinex DM)
furosemide 20 mg tablet 20 mg PO MOWEFR Fluid 04/18/25 05/24/25 05/04/25 Rx
retention/Swelling #0 tabs
insulin glargine 100 unit/mL 7 unit (0.07 mL) SC HS Diabetes #0 04/18/25 05/24/25 05/06/25 Rx
subcutaneous solution (Lantus mL
U-100 Insulin)
melatonin 3 mg tablet 3 mg PO HS Sleep #0 tabs 04/18/25 05/24/25 05/06/25 Rx
polyethylene glycol 3350 17 gram 17 g PO DAILY Constipation #0 ea 04/18/25 05/24/25 05/06/25 Rx
oral powder packet
potassium chloride 20 mEq 20 meq PO DAILY Electrolyte 04/18/25 05/24/25 05/06/25 Rx
tablet,extended release(part/cryst) Repletion #0 tabs
spironolactone 25 mg tablet 12.5 mg (1/2 x 25 mg) PO DAILY 04/18/25 05/24/25 05/06/25 Rx
Heart disease/condition #0 tabs
sertraline 100 mg tablet 200 mg PO DAILY 05/07/25 05/24/25 05/06/25 History
sodium chloride 1 gram tablet 1,000 mg PO QID 05/07/25 05/24/25 05/07/25 History
carvedilol 12.5 mg tablet 12.5 mg PO BID #60 tabs 05/10/25 05/24/25 Unknown Rx
clopidogrel 75 mg tablet 75 mg PO DAILY #30 tabs 05/10/25 05/24/25 Unknown Rx
isosorbide mononitrate 30 mg 30 mg PO DAILY #30 tabs 05/10/25 05/24/25 Unknown Rx
tablet,extended release 24 hr
lorazepam 0.5 mg tablet 0.5 mg PO TIDPRN PRN sleep/anxiety 05/10/25 05/24/25 Unknown Rx
#6 tabs
oxycodone 5 mg tablet 2.5 mg (1/2 x 5 mg) PO Q4HPRN PRN 05/10/25 05/24/25 Unknown Rx
moderate-severe pain #15 tabs
ranolazine 500 mg tablet,extended 1,000 mg (2 x 500 mg) PO BID #120 05/10/25 05/24/25 Unknown Rx
release,12 hr tabs
azithromycin 250 mg tablet 250 mg PO DAILY long winder tender 05/24/25 05/24/25 Unknown History
Review of Systems
-
History Source: Patient
All other systems: Negative unless noted
Vitals / Labs / Diagnostic Testing
Vital Signs
Temp Pulse Resp BP Pulse Ox
98.8 F 85 16 178/65 99
05/24/25 14:25 05/24/25 14:25 05/24/25 14:25 05/24/25 14:25 05/24/25 14:25
Lab Data
05/24/25 09:15
05/24/25 09:15
Diagnostic Testing:
Physical Exam
-
HEENT: Normocephalic
Cardiovascular: S1/S2
Respiratory: Wheeze (None), Non-Labored Respirations and Other (Prolonged expiratory phase-chronic)
GI: Soft and Non Distended
Neurology: Awake and Alert
Skin: Warm
General: Comfortable
Assessment
-
Assessment
70-year-old with underlying severe COPD on oxygen followed by Dr. Landeros as well as hypertension, hyperlipidemia, CAD, paroxysmal atrial fibrillation presented after sustaining a fall. Left hip fracture. We were consulted on 05/24/2025 for
preoperatory pulmonary assessment.
Status post fall with subsequent left intertrochanteric hip fracture
Advanced COPD-oxygen dependent 3 L nasal cannula.
Steroid-dependent 10 mg
Last acute exacerbation in 08/2023.
DNR/DNI
Conditions present prior to admission:
Recent hospital admissions for acute coronary syndrome.
Hospitalization-discharged 07/07/2023-COPD exacerbation, ESTHER, L1 subacute fracture
Very severe COPD-O2 dependent (3L)
Followed by Dr. Person, albuterol as needed, prednisone 10 mg daily and azithromycin 250 mg daily for anti-inflammatory properties.
Last time seen in office 02/2025.
FEV1 0.86 L or 30% of predicted. Severe gas exchange abnormality. 33%.
Quit smoking 01/2023.
CT chest 12/09/2024: Without pulmonary embolism. No parenchymal abnormalities.
Former [id number] quit 07/2023.
CAD.
Hypertension.
Hyperlipidemia.
PAF.
Chronic anticoagulation.
Cardiomyopathy.
Diastolic CHF.
Atrial flutter with a history of ablation
GERD.
Anxiety
Overweight
L1 vertebral fracture.
Endovascular AAA repair 2017. Femoral endarterectomy 2017. Lap cholecystectomy 2015. CABG 1998. Atrial flutter ablation 2018.
Assessment and plan:
-
From a COPD perspective patient appears to be at baseline.
Prolonged expiratory phase which is baseline.
Oxygen supplementation at baseline.
Not bronchospastic on exam
No recent acute exacerbation
Will continue with nebulizer therapy with budesonide/DuoNebs.
Low-dose prednisone at 10 mg-May need stress dose of the steroids.
Mucolytics.
-
From the pulmonary perspective patient has intermediate to high risk of pulmonary complications.
May proceed with surgery, no need for further pulmonary optimization-May use general anesthesia if necessary
Ariscat Score 30-13.7 risk of in-hospital postoperative complications including respiratory failure, respiratory infection, pleural effusion, atelectasis, pneumothorax, bronchospasm and aspiration pneumonia.
-
Cardiology correspondence reviewed: High risk given history of significant coronary artery disease.
-
Will continue to follow.
-
DVT prophylaxis--
-
will follow
-
Diagnostic data:
Chest x-ray 05/07/2025: Clear lungs.
CT chest 11/2024: Reviewed no acute abnormalities.
CXR 07/04/23: NAD
Chest x-ray 09/05/2023-NAD
Chest x-ray 09/06/2023-NAD
CT Chest PE study 02/07/22: No PE. Mild centrilobular emphysema. Severe CAD.
CT chest 09/06/2023-negative for pulm embolism, moderate emphysematous changes superimposed on probable mild interstitial edema
TTE 09-06-23
CONCLUSIONS
1. Left ventricle: The left ventricle is dilated and systolic function is low normal to mildly reduced with an estimated ejection fraction of 45 to 50%. The ventricle is globally hypokinetic. Definity contrast was utilized. Stage I diastolic
dysfunction
2. Right ventricle: Normal
3. Atria: Normal
4. Mitral valve: Mild mitral regurgitation
5. Aortic valve: No aortic stenosis or aortic insufficiency
6. Tricuspid valve: Trace tricuspid regurgitation. Estimated pulmonary artery systolic pressures are 25-30 mmHg
7. When compared to the most recent echocardiogram from 08/04/2021 there appears to be no significant change. LVEF is now estimated 45-50% with mild global hypokinesis. The EF was estimated to be 50% on the prior study
Echocardiogram 08/04/2021-EF 50%, no significant valvular abnormalities
PFT 04/07/2023: FVC 2.16/55%, FEV1 0.86/30%, ratio 40%, TLC 5.08/78%, DLCO 3.16/13%, DLCO/VA 0.73/19%. Severe obstruction. Mild restriction. Severely reduced diffusing capacity.
[2025-05-24 17:14] LABS: Glucose - Point of Care 142 mg/dl (70-99)
[2025-05-24 17:19] VITALS: BP 167/98
--- NOTE | 2025-05-24 17:24 | PTCARENOTE ---
Pt arrived to [facility] from the ED on a stretcher. Pt pulled over from stretcher to bed. Pt c/o left hip pain. Left arm abrasion with steri strips assessed and changed. Pt on 3L at 99%. On bedrest and slightly forgetful. Bed alarm initiated. Chronic
mason with yellow output. Admission questions answered. Bed locked and in lowest position. Care ongoing.
[2025-05-24] MEDS: SODIUM CHLORIDE 1 GRAM PO ×2 (18:07→20:59)
[2025-05-24] MEDS: COREG 12.5 MG PO (18:43)
[2025-05-24 19:00] VITALS: BP 112/59
[2025-05-24 19:06] LABS: Troponin I 0.028 ng/ml
[2025-05-24] MEDS: PULMICORT 0.5 MG INH (20:05)
[2025-05-24] MEDS: DUONEB 3 ML INH (20:05)
[2025-05-24 20:43] LABS: Glucose - Point of Care 208 mg/dl (70-99)
[2025-05-24] MEDS: LANTUS 0.03 UNITS SC (20:58)
[2025-05-24] MEDS: MUCINEX 1200 MG PO (20:58)
[2025-05-24] MEDS: RANEXA EXTENDED RELEASE 1000 MG PO (20:58)
[2025-05-24] MEDS: MELATONIN 3 MG PO (20:59)
[2025-05-25] VITALS (12 sets, daily range): BP systolic 70–140; BP diastolic 38–75; BMI 24.6; BMI 26.1
[2025-05-25 05:08] LABS: Glucose - Point of Care 102 mg/dl (70-99)
[2025-05-25] MEDS: DILAUDID 0.5 MG IV ×2 (05:12→09:11)
[2025-05-25] MEDS: NOVOLOG FLEXPEN-LOW RESISTANCE SC ×2 (05:12→11:59)
[2025-05-25 06:49] LABS: Blood Urea Nitrogen 17 mg/dl (9-20); Calcium 8.9 mg/dl (8.4-10.2); Carbon Dioxide 31 mmol/L (22-30); Chloride 103 mmol/L (98-107); Estimated Creatinine Clearance 106 ml/min; Glucose 99 mg/dl (70-99); Magnesium 1.8 mg/dl (1.6-2.3); Potassium 4.1 mmol/L (3.5-5.1); Sodium 138 mmol/L (135-145); Troponin I 0.027 ng/ml; eGFR > 60.00
[2025-05-25 06:51] LABS: Hematocrit 34.8 % (39.0-52.0); Hemoglobin 10.6 g/dL (13.0-18.0); Mean Corp Hgb Conc. 30.5 g/dL (33.0-37.0); Mean Corpuscular Volume 92.1 fL (80.0-94.0); Nucleated Red Blood Cells % 0 % (-); Platelet Count 214 10^3/uL (130-400); Red Cell Dist. Width 13.5 % (11.5-14.5)
[2025-05-25] MEDS: DUONEB 3 ML INH ×3 (07:49→20:22)
[2025-05-25] MEDS: PULMICORT 0.5 MG INH ×2 (07:50→20:23)
[2025-05-25 07:58] LABS: Glycohemoglobin (HgbA1c) 8.0 % (4.0-5.6)
--- NOTE | 2025-05-25 08:46 | CON.ORTHO ---
Addendum entered and electronically signed by Porter Mccarthy MD 05/25/25 14:55:
I evaluated the patient and agree with the above note. 70-year-old male who sustained a fall yesterday with findings on x-ray consistent with basicervical femoral neck fracture with some slight extension to the region of the lesser trochanter. He
has pain with active and passive motion of the left hip. I discussed treatment options with the patient as well as with the medical, cardiology, pulmonology, anesthesia teams. I discussed with the patient options for nonsurgical treatment. This
would limit his mobility but would eliminate the risk of surgery. We discussed surgical treatment with left hip hemiarthroplasty which would allow him to mobilize more quickly. He was not interested in nonsurgical treatment due to his pain and
would be prolonged immobility and bedrest. We discussed surgical treatment acutely with general anesthesia. Given his cardiac and pulmonary history, we discussed that this would present increased risk compared to spinal anesthesia. Unfortunately
due to his taking Plavix, he would need to wait 7 days prior to having spinal anesthesia. I discussed with the medical teams about the relative risks of delaying surgery versus proceeding acutely. Spinal anesthesia may reduce some risk, there are
significant risks with prolonged immobilization as well as the patient's pain. I discussed these options with the patient as well and he wished to proceed with surgery acutely. We discussed the risks of surgery primarily medical risks related to
surgery and general anesthesia including the risk of and heart attack other complications. The patient understood the risks and wished to proceed with surgery.
Original Note:
Consultation - Orthopedics
History
Mr. Bernard is a 70 year old male with PMH significant for CAD (CABG 1998), recovered ischemic cardiomyopathy, PAD s/p AAA repair and bilateral femoral artery endarterectomy 07/2018, paroxysmal afib, DM II, HTN, HLD, COPD on chronic O2 2-3L, hx daily
alcohol use now abstinent, former smoker, recent admission for ACS where decision made for medical therapy (uptitrated Coreg, started on Plavix). He is seen today for his left hip. He currently resides at [facility], and typically gets around
with a rollator or wheel chair. Unfortunately, he reports he tripped and fell onto his left side. He reports immediate onset of pain in the hip. He was transported to ED where x-rays revealed a subcapital femur fracture. He is resting comfortably
in bed this morning, but did endorse quite a bit of pain about the hip. He denies pain elsewhere. He was seen and evaluated by cardiology and pulmonology.
Allergies / Home Medications
Allergy/AdvReac Type Severity Reaction Status Date / Time
lisinopril Allergy throat Verified 05/15/25 20:39
closes
�Medication �Instructions �Recorded
albuterol sulfate 90 mcg/actuation 2 puff inhalation R Q6HPRN PRN SOB 07/02/23
aerosol inhaler
atorvastatin 80 mg tablet 80 mg PO DAILY High cholesterol 07/02/23
ipratropium 0.5 mg-albuterol 3 mg 3 ml inhalation R QIDPRN PRN SOB 07/02/23
(2.5 mg base)/3 mL nebulization
soln
pantoprazole 40 mg tablet,delayed 40 mg PO DAILY Gastrointestinal 07/02/23
release issue
tamsulosin 0.4 mg capsule 0.4 mg PO DAILY BPH 07/02/23
prednisone 10 mg tablet 10 mg PO DAILY Anti-inflammatory 09/10/23
#0 tabs
acetaminophen 325 mg tablet 650 mg PO Q4HPRN PRN mild 12/08/24
pain/fever
bisacodyl 10 mg rectal suppository 10 mg LA [id number] PRN if mom 12/08/24
ineffective
magnesium hydroxide 400 mg/5 mL 30 ml PO HSPRN PRN constipation 12/08/24
oral suspension (Milk of Magnesia)
fluticasone propionate 50 2 spray intranasal DAILYPRN PRN 02/23/25
mcg/actuation nasal allergies
spray,suspension
budesonide 0.5 mg/2 mL suspension 0.5 mg inhalation R BID copd 04/13/25
for nebulization
insulin aspart U-100 100 unit/mL 3 unit (0.03 mL) SC AC Diabetes #0 04/16/25
(3 mL) subcutaneous pen mL
nitroglycerin 0.2 mg/hr 0.2 mg transdermal DAILY #0 ea 04/16/25
transdermal 24 hour patch
ascorbic acid (vitamin C) 500 mg 500 mg PO DAILY Supplement #0 tabs 04/18/25
tablet (Vitamin C)
aspirin 81 mg chewable tablet 81 mg PO DAILY Blood clot 04/18/25
(Children's Aspirin) prevention/tx #1 tab
bupropion HCl 300 mg 24 hr tablet, 300 mg PO DAILY Depression #0 tabs 04/18/25
extended release
dextromethorphan-guaifenesin 30 1 tab PO Q12H Congestion #0 tabs 04/18/25
mg-600 mg tablet extended
[id number] hr (Mucinex DM)
furosemide 20 mg tablet 20 mg PO MOWEFR Fluid 04/18/25
retention/Swelling #0 tabs
insulin glargine 100 unit/mL 7 unit (0.07 mL) SC HS Diabetes #0 04/18/25
subcutaneous solution (Lantus mL
U-100 Insulin)
melatonin 3 mg tablet 3 mg PO HS Sleep #0 tabs 04/18/25
polyethylene glycol 3350 17 gram 17 g PO DAILY Constipation #0 ea 04/18/25
oral powder packet
potassium chloride 20 mEq 20 meq PO DAILY Electrolyte 04/18/25
tablet,extended release(part/cryst) Repletion #0 tabs
spironolactone 25 mg tablet 12.5 mg (1/2 x 25 mg) PO DAILY 04/18/25
Heart disease/condition #0 tabs
sertraline 100 mg tablet 200 mg PO DAILY 05/07/25
sodium chloride 1 gram tablet 1,000 mg PO QID 05/07/25
carvedilol 12.5 mg tablet 12.5 mg PO BID #60 tabs 05/10/25
clopidogrel 75 mg tablet 75 mg PO DAILY #30 tabs 05/10/25
isosorbide mononitrate 30 mg 30 mg PO DAILY #30 tabs 05/10/25
tablet,extended release 24 hr
lorazepam 0.5 mg tablet 0.5 mg PO TIDPRN PRN sleep/anxiety 05/10/25
#6 tabs
oxycodone 5 mg tablet 2.5 mg (1/2 x 5 mg) PO Q4HPRN PRN 05/10/25
moderate-severe pain #15 tabs
ranolazine 500 mg tablet,extended 1,000 mg (2 x 500 mg) PO BID #120 05/10/25
release,12 hr tabs
azithromycin 250 mg tablet 250 mg PO DAILY roasterman 05/24/25
Vital Signs / Lab Results
Temp Pulse Resp BP Pulse Ox
98.4 F 89 20 117/74 98
05/25/25 07:40 05/25/25 07:52 05/25/25 07:52 05/25/25 07:40 05/25/25 07:52
05/25/25 06:16
05/25/25 06:16
XR Pelvis/left hip IMPRESSION:
Fractures of the RIGHT superior and inferior pubic rami, new compared to the prior CT from 12/05/2024.
*There does appear to be a fracture line through the left femoral neck.
CT Pelvis IMPRESSION:
Mildly displaced LEFT intertrochanteric hip fracture.
Acute, comminuted fractures also involving the superior and inferior right pubic rami.
XR Left femur IMPRESSION:
Left femur intertrochanteric fracture redemonstrated. No intra-articular extension or dislocation. The remainder of the left femur is intact. Partially visualized regional joints demonstrate mild degenerative change. Scattered vascular
calcifications.
Directed exam of the left lower extremity reveals no obvious erythema, ecchymosis, edema or lesions. Tenderness to palpation about the anterior and lateral hip. ROM deferred secondary to known fracture. Positive log roll. Thigh soft and
compressible. Calf soft and nontender. Patient able to wiggle toes, plantar and dorsiflex ankle. Neurovascularly intact distally.
Assessment / Plan
Left subcapital femur fracture
--Unfortunately, Gonzalo sustained a femoral neck fracture in his fall. For surgical fixation, I recommend a left hip hemiarthroplasty. The risks, benefits, alternatives, recovery process and potential complications were discussed in detail. Given his
significant underlying cardiac and pulmonary history, his risk is quite high with surgery. We discussed the possibility of DVT, CVA and ND post-operatively, as well as potential for cardiac arrest during surgery. Potential risks of surgery do
include , and he verbalized understanding. He was seen and evaluated by cardiology. Per cardiology, 'It would be reasonable to consider palliative care or hospice in this circumstance and treat his hip fracture nonsurgically. However, Vinayak
has consistently been unwilling to consider a transition and level of care. The likelihood of perioperative myocardial infarction following ORIF of left hip is high. If so ND would probably be moderate in size. I suspect he would survive this
however. As a result, his perioperative cardiac risk is high but not prohibitive provided he understands all the above.'. Per pulmonology, 'patient has intermediate to high risk of pulmonary complications. May proceed with surgery, no need for
further pulmonary optimization-May use general anesthesia if necessary'. We would like to discuss with pulmonology and cardiology whether spinal anesthesia with twilight sedation after Plavix washout would provide a lower risk from their standpoint.
If this would provide lower cardiac/pulm risk, we would plan for OR Tuesday 05/29 after Plavix washout. If there is no significant change to risk with type of anesthesia, we would proceed this afternoon under the direction of Dr. Mccarthy. Patient
verbalized understanding of all potential risks. He would like to proceed with surgical intervention. Surgical and blood consents are signed and on patient chart. Hip has been marked.
--NPO for possible OR this afternoon.
--NWB to LLE until surgery.
--Pain control prn. Ice for pain and edema control.
--T+S ordered.
--Abx and irrigation ordered to OR.
--Orthopedics will continue to follow along.
[2025-05-25] MEDS: NITRO-DUR 0.2 MG TRANSDERM (09:05)
[2025-05-25] MEDS: SODIUM CHLORIDE 1 GRAM PO ×4 (09:06→21:17)
[2025-05-25] MEDS: ZITHROMAX 250 MG PO (09:06)
[2025-05-25] MEDS: LASIX 20 MG PO (09:06)
[2025-05-25] MEDS: ZOLOFT 200 MG PO (09:08)
[2025-05-25] MEDS: RANEXA EXTENDED RELEASE 1000 MG PO ×2 (09:13→19:26)
[2025-05-25] MEDS: KCL 20 MEQ PO (09:13)
[2025-05-25] MEDS: IMDUR (EXTENDED RELEASE) 30 MG PO (09:14)
[2025-05-25] MEDS: LIPITOR 80 MG PO (09:14)
[2025-05-25] MEDS: TYLENOL 1000 MG PO ×2 (09:15→21:17)
[2025-05-25] MEDS: DELTASONE 10 MG PO (09:15)
[2025-05-25] MEDS: MUCINEX 1200 MG PO ×2 (09:15→19:27)
[2025-05-25] MEDS: MIRALAX 17 GRAMS PO (09:16)
[2025-05-25] MEDS: ALDACTONE 12.5 MG PO (09:16)
[2025-05-25] MEDS: COREG 12.5 MG PO (09:17)
[2025-05-25] MEDS: LOW STRENGTH ASPIRIN 81 MG PO (09:17)
[2025-05-25] MEDS: PROTONIX 40 MG PO (09:18)
[2025-05-25] MEDS: FLOMAX 0.4 MG PO (09:18)
[2025-05-25] MEDS: WELLBUTRIN XL (24 hour extended release) 300 MG PO (09:18)
--- NOTE | 2025-05-25 10:09 | W.PN.CARDCBS ---
Today's Communication / Plan
-
Risk assessment as noted in impression and plan
Surgical planning per orthopedics
Supportive care
Impression / Plan
-
Primary Regulatory Services Consultant: Dr. MILA Woo
Assessment:
Presentation with fall
L hip fracture
CAD
s/p CABG 1998 at [facility] with GAR to LAD and free JONO Y graft from GAR to OM
cath showed progression of [place] CAD however patient bypass grafts 12/2019
cath 03/2025 with new OM lesion, felt to be high risk for intervention, medically managed
History of recovered ischemic cardiomyopathy, EF 50 to 55% by echo 11/2024
Chronic HFpEF
h/o NSVT
Chronic orthostatic hypotension
Sinus tachycardia
Paroxysmal atrial flutter
s/p ablation in 2017
Paroxysmal atrial fibrillation
diagnosed during 12/2019 admission without known recurrence
Not chronically anticoagulated due to patient's choice and low burden of atrial arrhythmia
PVD
h/o endovascular AAA repair and bilateral femoral artery endarterectomy and profundoplasty 07/2018
Type 2 diabetes
Hypertension
Hypercholesterolemia
Chronic right bundle-branch block
COPD on chronic supp O2, 3L
History of duodenal ulcer with microperforation in 2017
h/o daily ETOH use now abstinent
Former smoker
DNR
ECHO 09/06/23: Definity used, EF 45 to 50%, global hypokinesis, stage I diastolic dysfunction, mild MR, trace TR, PAP 25 to 30 mmHg
Echo 12/11/2024: EF 50 to 55%, no regional wall motion abnormalities, mild concentric LVH, no significant valvular disease
Echo 02/23/2025: EF 50%, mild to moderate concentric LVH, no significant valvular disease
Cath 04/17/25: GAR-LAD patent, JONO Ygraft GAR to OM with 95% distal stenosis.
Plan:
- Patient with 2 admissions in the last 2 months for chest pain and hypertension. Cardiac catheterization 04/18 with new OM stenosis, felt to be high risk for PCI and therefore medically managed. Antianginal regimen has been uptitrated without
recurrence of chest pain. He does have history of orthostasis in addition, complicating aggressive uptitration
- Had fall 05/15/2025 with scalp laceration requiring ER visit. He denies preceding dizziness, or syncope associated with event
- Now presents back with another fall and with left hip fracture by pelvis CT. Denies preceding dizziness or syncope with this event as well. head CT without acute abnormality
- Denies chest pain, shortness of breath
- EKG appears stable compared to prior
- Recent echo 02/2025 with EF 50% as above
- Hgb 10. Holding Plavix. Continue aspirin
- Given above, he is high cardiovascular risk for any procedures, however given necessity of surgery, risk is not prohibitive. I did discuss this with patient 05/24.
- He is presently a DNR. Historically he has not been ready for hospice.
As previously discussed by Dr. Tab Woo, RCRI is 2, implying a 5% risk of major periop cardiac event, but in reality I think his risk is much higher given specifics of his case not included in the RCRI. The likelihood of perioperative
myocardial infarction following ORIF of left hip is high. If so CA would probably be moderate in size. As a result, his perioperative cardiac risk is high but not prohibitive provided he understands all the above. If the patient proceeds to the OR,
continue carvedilol and aspirin. Troponin negative x 2 and BNP ~600. Current discussion by Orthopedics is general anesthesia today vs with spinal anesthesia, plavix hold x5 days would be needed with close monitoring. Both approaches, patient at high
risk.
Discussed with orthopedics, nursing
Progress Note - Regulatory Services Consultant
Subjective
Date of Service: May 25, 2025
Patient seen and examined this morning. Patient resting comfortably in bed. Denies any chest pain, shortness of breath, palpitations, weakness. Patient notes left hip pain.
Objective
Labs:
05/25/25 06:16
05/25/25 06:16
Labs
Hgb 10.6 g/dL (13.0-18.0) L 05/25/25 06:16
Hct 34.8 % (39.0-52.0) L 05/25/25 06:16
Plt Count 214 10^3/uL (130-400) 05/25/25 06:16
Sodium 138 mmol/L (135-145) 05/25/25 06:16
Potassium 4.1 mmol/L (3.5-5.1) 05/25/25 06:16
BUN 17 mg/dl (9-20) 05/25/25 06:16
Creatinine 0.6 mg/dL (0.7-1.3) L 05/25/25 06:16
Glucose 99 mg/dl (70-99) 05/25/25 06:16
Troponins
05/24/25 05/25/25
18:35 06:16
Troponin I 0.028 0.027
Vital Signs and I&O:
Vital Signs
Temp Pulse Resp BP Pulse Ox
98.4 F 89 20 117/74 98
05/25/25 07:40 05/25/25 07:52 05/25/25 07:52 05/25/25 07:40 05/25/25 09:37
Vital Signs
Temp Pulse Resp BP Pulse Ox
98.4 F 89 20 117/74 98
05/25/25 07:40 05/25/25 07:52 05/25/25 07:52 05/25/25 07:40 05/25/25 09:37
Intake & Output
05/23/25 05/24/25 05/25/25 05/26/25
06:59 06:59 06:59 06:59
Intake Total 120 / 120
Output Total 475 / 475 375 / 375
Balance -355 / -355 -375 / -375
Physical Exam
Physical Exam
GEN: No distress, awake, alert, oriented x3. on supp O2. chronically ill appearing
HEENT: supple, anicteric, mmm, eomi
LUNGS: Scattered expiratory wheezes
CV: Reg, S1/S2, 1/6 syst LSB, no murmur
ABD: soft, BS+, NT/ND
EXT: No cyanosis, clubbing, edema
NEURO: Gross non-focal
SKIN: Warm, pink, dry. No rash. Scabbed laceration to scalp. healing ecchymoses of R eye. scattered B/L UE ecchymoses in various stages of healing
Telemetry demonstrates sinus rhythm, PACs/PAT rare PVC
[2025-05-25 11:18] LABS: Glucose - Point of Care 142 mg/dl (70-99)
--- NOTE | 2025-05-25 11:58 | CM ---
Initial assessment completed with patient and medical records. 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. [employer] he ambulated with either a RW or SPC. Staff assisted with ADL's. Patient is on O2 3L continuously. PCP is Dr. Renan Pedroza and
Pharmacy is [facility] through [facility]. Discharge POC: Return to [facility]. Most likely SNF.
--- NOTE | 2025-05-25 12:01 | PTCARENOTE ---
pt received Dilaudid at 0911 along with AM meds with a BP of 117/74. his current BP 78/62 (77). No dizziness or CP, he is comfortable wants food and drink. TT with Dr. Traci GOLD, will have sx today.
--- NOTE | 2025-05-25 13:54 | W.PN.PUL3 ---
Today's Communication / Plan
-
Continue COPD regimen without change
Consider stress dose of steroids-will defer to anesthesia
Surgical plans ongoing
Will follow briefly postoperatively
Assessment
-
Assessment
70-year-old with underlying severe COPD on oxygen followed by Dr. Landeros as well as hypertension, hyperlipidemia, CAD, paroxysmal atrial fibrillation presented after sustaining a fall. Left hip fracture. We were consulted on 05/24/2025 for
preoperatory pulmonary assessment.
Status post fall with subsequent left intertrochanteric hip fracture
Advanced COPD-oxygen dependent 3 L nasal cannula.
Steroid-dependent 10 mg
Last acute exacerbation in 08/2023.
DNR/DNI
Conditions present prior to admission:
Recent hospital admissions for acute coronary syndrome.
Hospitalization-discharged 07/07/2023-COPD exacerbation, ESTHER, L1 subacute fracture
Very severe COPD-O2 dependent (3L)
Followed by Dr. Person, albuterol as needed, prednisone 10 mg daily and azithromycin 250 mg daily for anti-inflammatory properties.
Last time seen in office 02/2025.
FEV1 0.86 L or 30% of predicted. Severe gas exchange abnormality. 33%.
Quit smoking 01/2023.
CT chest 12/09/2024: Without pulmonary embolism. No parenchymal abnormalities.
Former [id number] quit 07/2023.
CAD.
Hypertension.
Hyperlipidemia.
PAF.
Chronic anticoagulation.
Cardiomyopathy.
Diastolic CHF.
Atrial flutter with a history of ablation
GERD.
Anxiety
Overweight
L1 vertebral fracture.
Endovascular AAA repair 2017. Femoral endarterectomy 2017. Lap cholecystectomy 2015. CABG 1998. Atrial flutter ablation 2018.
Assessment and plan:
-
From a COPD perspective patient appears to be at baseline.
Prolonged expiratory phase which is baseline per [facility] records.
Oxygen supplementation at baseline.
Not bronchospastic on exam
No recent acute exacerbation
Continue current regimen:
nebulizer therapy with budesonide/DuoNebs-similar to outpatient.
Low-dose prednisone at 10 mg-May need stress dose of the steroids-defer to anesthesia.
Mucolytics.
-
From the pulmonary perspective patient has intermediate to high risk of pulmonary complications.
May proceed with surgery, no need for further pulmonary optimization-May use general anesthesia if necessary
Ariscat Score 30-13.7 risk of in-hospital postoperative complications including respiratory failure, respiratory infection, pleural effusion, atelectasis, pneumothorax, bronchospasm and aspiration pneumonia.
-
Surgical plans ongoing.
-
Cardiology correspondence reviewed: High risk given history of significant coronary artery disease.
-
Will continue to follow.
-
DVT prophylaxis--
-
Will follow briefly postoperatively.
-
Diagnostic data:
Chest x-ray 05/07/2025: Clear lungs.
CT chest 11/2024: Reviewed no acute abnormalities.
CXR 07/04/23: NAD
Chest x-ray 09/05/2023-NAD
Chest x-ray 09/06/2023-NAD
CT Chest PE study 02/07/22: No PE. Mild centrilobular emphysema. Severe CAD.
CT chest 09/06/2023-negative for pulm embolism, moderate emphysematous changes superimposed on probable mild interstitial edema
TTE 09-06-23
CONCLUSIONS
1. Left ventricle: The left ventricle is dilated and systolic function is low normal to mildly reduced with an estimated ejection fraction of 45 to 50%. The ventricle is globally hypokinetic. Definity contrast was utilized. Stage I diastolic
dysfunction
2. Right ventricle: Normal
3. Atria: Normal
4. Mitral valve: Mild mitral regurgitation
5. Aortic valve: No aortic stenosis or aortic insufficiency
6. Tricuspid valve: Trace tricuspid regurgitation. Estimated pulmonary artery systolic pressures are 25-30 mmHg
7. When compared to the most recent echocardiogram from 08/04/2021 there appears to be no significant change. LVEF is now estimated 45-50% with mild global hypokinesis. The EF was estimated to be 50% on the prior study
Echocardiogram 08/04/2021-EF 50%, no significant valvular abnormalities
PFT 04/07/2023: FVC 2.16/55%, FEV1 0.86/30%, ratio 40%, TLC 5.08/78%, DLCO 3.16/13%, DLCO/VA 0.73/19%. Severe obstruction. Mild restriction. Severely reduced diffusing capacity.
Subjective Data
-
Date of Service:
Date of Service: May 25, 2025
Chief Complaint: Pulmonary Follow Up (Advanced COPD-preoperative risk)
Subjective:
Patient offers no pulmonary complaints
Continues to report pain on fracture hip
Review of Systems
Cardiopulmonary: Dyspnea (Chronic-unchanged) and Cough (Baseline)
Objective Data
Data Reviewed
Vital Signs / I&O / Oxygen:
Vital Signs
Temp Pulse Resp BP Pulse Ox
97.6 F 74 20 70/38 96
05/25/25 11:30 05/25/25 13:18 05/25/25 13:18 05/25/25 13:00 05/25/25 13:18
Intake and Output
05/24/25 05/25/25 05/26/25
06:59 06:59 06:59
Intake Total 120 / 120
Output Total 475 / 475 525 / 525
Balance -355 / -355 -525 / -525
SaO2 96
Nasal Cannula flow liters per 2
minute
Physical Exam
HEENT: Normocephalic
Cardiovascular: S1-S2
Respiratory: Non-Labored Respirations
GI: Soft and Non Distended
Neurology: Awake and Alert
Skin: Warm
Labs/Micro/Reports
Lab Data
05/25/25 06:16
05/25/25 06:16
[2025-05-25] MEDS: LR 500 IV (13:58)
--- NOTE | 2025-05-25 14:08 | W.PN.HOSP.TC ---
Addendum entered and electronically signed by Juan Luis Meza MD 05/25/25 15:56:
Chronic hypoxic respiratory failure
Original Note:
Today's Communication/Plan
-
OR as per Ortho
Holding Plavix
May benefit from extubation to NIV if any respiratory issues
Assessment / Plan
Assessment / Plan
Physical Exam
General: No Apparent Distress and Other (midly tachypneic with prolonged expiration )
HEENT: PERRLA and Other (bruising noted along left forehead )
Respiratory: Decreased Breath Sounds; No Wheezes
Cardiac: S1/S2 and Regular Rhythm
GI: Soft and Non Tender
Musculoskeletal: No Edema
Skin: Warm and Dry; No Rash
Neuro: AO x 3
Psych: Calm
Mr. Justice Bernard is a 70 yo man with hx CAD (CABG 1998), recovered ischemic cardiomyopathy, PAD s/p AAA repair and bilateral femoral artery endarterectomy 07/2018, paroxysmal afib, DM II, HTN, HLD, COPD on chronic O2 2-3L, hx daily alcohol use now
abstinent, former smoker, recent admission for ACS where decision made for medical therapy (uptitrated Coreg, started on Plavix) presents to the ER post fall last night.
Left Intertrochanteric Hip Fracture
-admit to telemetry
-Orthopedics consulted
-Cardiology consult requested for surgical clearance given recent NSTEMI
-Pulmonary consult requested for surgical clearance given history of severe COPD
-pain control: oxy/Dilaudid PRN
-bedrest
-SCD's for DVT PPx pre-op
-hold Plavix
-NPO order not placed as patient will need Plavix washout to be determined by Orthopedics.
Superior and Inferior right pubic Rami Fracture
-ortho consulted as above
-PT post OR once cleared
-pain control
Coronary Artery Disease
CABG 1998
Recent admission for NSETEMI treated medically
Essential Hypertension
Hyperlipidemia
-continue [employer] regimen:
Asa 81mg PO QD
Atorvastatin 80mg PO QD
Coreg 12.5mg PO BID
Imdur 30mg PO QD
Transdermal Nitro
Ranolazine 1G BID
-Hold Plavix
Severe COPD
Chronic Hypoxic Respiratory Insufficiency on 3L
-patient without active wheezing on exam.
-[employer] Prednisone 10mg PO QD - monitor BP closely post-op, may need stress dose steroids
-[employer] Azithromycin 250mg PO QD
-[employer] inhalers
-Mucinex BID
Hyponatremia
-Na 137 on admit [employer] Sodium tabs 1G QID
Recovered Ischemic Cardiomyopathy
-[employer] Lasix MWF and Spironolactone
PAD s/p AAA repair and bilateral femoral artery endarterectomy 07/2018
paroxysmal atrial Fibrillation s/p ablation
-per patient's choice, not on OAC
BPH - [employer] Flomax
Anxiety/Depression
-[employer] Wellbutrin, Zoloft
IDDM
-hold pre-meal insulin for now (takes 3 units AC at home)
-Takes Lantus 7 units qhs at home, order half dose for now
GERD - [employer] PPI
DVT PPx - SCD pre-op
DNR -confirmed on admission
Anticipated Discharge: > 48 hours
Subjective/Interval History
-
Date of Service: May 25, 2025
no acute events
Objective Data
-
Labs:
Laboratory Results
05/25/25
06:16
WBC 11.5 H
Hgb 10.6 L
Hct 34.8 L
Plt Count 214
Sodium 138
Potassium 4.1
Chloride 103
Carbon Dioxide 31 H
BUN 17
Creatinine 0.6 L
Glucose 99
Calcium 8.9
Vital Signs:
Vital Signs
Temp Pulse Resp BP Pulse Ox
97.6 F 74 20 70/38 96
05/25/25 11:30 05/25/25 13:18 05/25/25 13:18 05/25/25 13:00 05/25/25 13:18
I&O
05/24/25 05/25/25 05/26/25
06:59 06:59 06:59
Intake Total 120 / 120
Output Total 475 / 475 525 / 525
Balance -355 / -355 -525 / -525
Review of Systems
-
History Source: Patient
All other systems: Not reviewed unless documented
Physical Exam
-
General: Well Developed, Well Nourished, No Apparent Distress and Appears Chronically Ill
HEENT: Normocephalic, Atraumatic, Moist Mucous Membranes, Anicteric and Oxygen
Respiratory: Non Labored Respirations and Decreased Breath Sounds; Negative Accessory Resp Muscle Use
Cardiac: Regular Rhythm and S1/S2; Negative Murmur, Rub, JVD or Gallop
GI: Soft, Nontender, Nondistended and Normal Bowel Sounds
Musculoskeletal: No Clubbing, No Cyanosis and No Edema
Skin: Warm, Dry and Normal Turgor; Negative Rash
Neuro: AO x 3 and Nonfocal/Grossly Intact; Negative Tremors
Psych: Calm
Data Reviewed
-
Medical Tests (Nuc Med, Echo etc): Report Reviewed by me and Discussed with Physician (Brick Maker)
Labs: Labs Reviewed by me and Discussed with Patient
--- NOTE | 2025-05-25 15:36 | PN.CDI ---
CDI
- -
CDI:
Physician Documentation Request
Admit Date: 05/24/25 13:08
Dear Doctor Derrick,
Clinical Indicators:
Patient admitted with Left Intertrochanteric Hip Fracture.
05/24 Pulmonary consult, 'Advanced COPD-oxygen dependent 3 L nasal cannula.'
05/25 PN, 'Chronic Hypoxic Respiratory Insufficiency on 3L'
05/25 Case management note, 'Patient is on O2 3L continuously.'
Please clarify which of the following accurately represents the patient's respiratory status:
Chronic hypoxic respiratory failure
Chronic hypoxic respiratory insufficiency only
Other
Use of terms such as suspected, likely, concern for, or probable (associated with a specific diagnosis that is being evaluated, monitored, or treated as if it exists) are acceptable and can be coded in the inpatient setting, when documented at the
time of discharge.
Thank you,
ORALIA Adames RN
CDI Specialist
available via tiger text
Please use your independent medical judgment in providing your response.
[2025-05-25 16:31] LABS: B.E. - POC 0.5 mmol/L; Glucose - POC 172 mg/dl (70-99); HCO3 - POC 28 mmol/L (21-28); Hematocrit - POC 30 % PCV (42-52); Hemodilution- POC Yes; Hemoglobin Calculated - POC 10.0; Ionized Calcium - POC 1.18 mmol/L (1.15-1.33); Lactate - POC 0.62 mmol/L (0.36-0.75); O2 Saturation %Calculated-POC 99.2 % (94-98); PCO2 - POC 56 mmHg (35-48); PO2 - POC 159 mmHg (83-108); Potassium - POC 4.2 mmol/L (3.5-5.1); Sodium - POC 141 mmol/L (136-145); Specimen Type - POC Arterial; pH - POC 7.30 (7.35-7.45)
--- NOTE | 2025-05-25 17:13 | OR.RPT ---
Operative Report
Operative Report
Orthopaedic Surgery Operative Note
DATE OF OPERATION:05/25/2025
PREOPERATIVE DIAGNOSES: Displaced femoral neck fracture, left
POSTOPERATIVE DIAGNOSES: Same
OPERATION PERFORMED: Left hip hemiarthroplasty
SURGEON: Porter Mccarthy MD
SUPERVISOR TRUST ACCOUNTS: Memo Chaney PA-C who helped with patient and limb positioning and retraction
ANESTHESIA: General
COMPLICATIONS: None.
ESTIMATED BLOOD LOSS: 50 mL.
DRAINS: None
SPECIMEN: None
FINDINGS: Displaced fracture of the femoral neck extending to lesser trochanteric region
IMPLANTS: Sindy Heritage stem size 13 extended offset, Size 47 Endo unipolar head, DJO bone cement, cement restrictor, distal centralizer
INDICATIONS: The patient presented to the emergency department after a fall sustained one day ago with new onset hip pain. Xrays showed a displaced basicervical femoral neck fracture extending partially to lesser trochanteric region. I discussed
treatment options with the patient and discussed that based on the degree of displacement that fixation of the fracture may have a high risk of complication and failure. I discussed surgical treatment with arthroplasty. Based on the patient's age
and activity level, shared decision was to proceed with hemiarthroplasty. I reviewed the risks, benefits, and alternatives of various treatment options. Given his cardiac history, we discussed that he would be high risk for perioperative medical
complication and that we could consider nonsurgical treatment as well. The patient understood the risks which included, but were not limited to, bleeding, infection, failure to relieve pain, more pain than preop, damage to blood vessels and nerves,
need for reoperation, mechanical failure of the implants, wound healing problems, stiffness, instability, blood clot, pulmonary embolism, myocardial infarction, pneumonia, arrhythmia, CVA, and . The patient accepted these risks and wished to
proceed. All questions were answered, and informed consent was obtained.
PROCEDURE IN DETAIL:
The patient was identified in the preoperative holding area. The left hip was identified as the operative site. The patient was taken in the operating room and transferred to the operative table. General anesthesia was performed. IV antibiotics and
tranexamic acid were administered. The patient was placed in the lateral position with Stulberg hip positioners. Axillary roll was placed. The down leg was well padded. All bony prominences were well padded. The operative limb was prepped and draped
in the usual sterile fashion.
Time out was performed. A posterolateral approach to the hip was used. The skin incision was centered over the greater trochanter. This was taken down sharply through subcutaneous tissues. Meticulous hemostasis was achieved throughout the case with
electrocautery. We split the fascia phil in line with skin incision. I split the gluteus alexey bluntly. We cauterized all crossing vessels as we split it. I palpated the sciatic nerve and made sure it was well posterior in the operative field. It
was protected throughout the case.
The posterior anatomy was distorted due to fracture hematoma and swelling. I performed a partial bursectomy to identify the short external rotators. The gluteus medius and minimus were identified and retracted anteriorly. I incised the piriformis
tendon and conjoint tendon at their insertions. These were tagged for later repair. I then performed a trapezoidal capsulotomy. The edges were tagged for later repair.
The femoral neck fracture was identified. The leg was flexed and internally rotated. There was a fracture extending from the subcapital region of the proximal femoral neck do the basicervical region of the femoral neck down partially to the lesser
trochanteric region. A fresh femoral neck cut was performed. The femur was translated anteriorly. Care was taken to preserve the labrum. The femoral head was carefully removed with a myers and a tenaculum. The head measured to be 47mm. The acetabulum
was inspected and noted not to have marked degenerative changes. A trial head was placed in the acetabulum and size 47 had appropriate fit and suction fit.
Attention was turned to the femur. Box osteotome and Charnley awe were used to open the canal. The femur was sequentially broached to size 13 which had appropriate fit and fill. A trial head was placed with extended offset neck and the hip was
reduced. Leg length and offset were checked and found to be appropriate. The hip was taken through complete range of motion and found to be stable in extension, the position of sleep, and at 90 degrees of flexion and internal rotation.
Trials were removed and the femoral canal was prepared with irrigation and ribbon gauze packing sequentially. A cement restrictor was placed into the femoral canal 1cm distal to the tip of the femoral stem. This was measured off the trial femoral
stem. Once the femoral canal was prepared, the cement was mixed. Once doughy in consistency, the cement was pressurized into the canal with a cement gun. The stem was then carefully inserted into the canal with care to minimize rotation or
micromotion. Excess cement was removed. Once the cement was polymerized, the joint was irrigated copiously. The acetabulum was inspected to be free of cement particles and other debris. The final head was impacted onto clean and dry trunion and the
hip was reduced. Leg length and stability were checked again and found to be acceptable. The sciatic nerve was inspected and noted to be free of tension and uninjured.
A dilute betadine soak was performed for approximately 3 minutes, and then the hip was copiously irrigated. I repaired the capsule, piriformis, and conjoint tendon with #2 Ethibond to drill holes in the greater trochanter. Local anesthetic was
injected. The fascia phil was closed with #1 PDS in running fashion. The subcutaneous tissues were closed with 2-0 PDS in running fashion. The skin was reapproximated with 3-0 Monocryl subcuticular suture. I placed a Prineo dressing followed by a
Mepilex Ag dressing. The patient awoke from anesthesia without difficulty. Sponge and instrument counts were correct x2 at the end of the case.
I was present and participated in the entire procedure. The patient was sent to the recovery room in stable condition. Plan for ICU stay after given his cardiac history. He was extubated in the room.
Rajesh Mccarthy MD
--- NOTE | 2025-05-25 17:17 | PTCARENOTE ---
report given to ICU nurse pt is moving [id number] post op
[2025-05-25 17:32] LABS: Glucose - Point of Care 170 mg/dl (70-99)
--- NOTE | 2025-05-25 18:43 | PTCARENOTE ---
arrived in ICU from PACU levophed infusing 2 mcg/min, epi arrived on pause, see titration parameters, not restarted. art line zero and vee, cuff pressure noted. ICE to L hip, surgical adhesive dressing maintained intact, no oozing. pulses bilat
feet palpable. arrived with nitropatch to skin L upper arm, remains in place at this time. in good spirits, pleasant, denies pain. ICU baseline labs obtained, 12 lead. CXR pending.
[2025-05-25 18:50] LABS: Hematocrit 28.9 % (39.0-52.0); Hemoglobin 9.0 g/dL (13.0-18.0); Mean Corp Hgb Conc. 31.1 g/dL (33.0-37.0); Mean Corpuscular Volume 91.5 fL (80.0-94.0); Platelet Count 192 10^3/uL (130-400); Red Cell Dist. Width 13.3 % (11.5-14.5)
[2025-05-25 18:58] LABS: INR 1.15; PT 15.0 Sec (11.4-14.6)
[2025-05-25 18:59] LABS: APTT 30.8 Sec (23.4-35.0)
[2025-05-25] MEDS: TYLENOL PO (19:07)
[2025-05-25 19:13] LABS: Blood Urea Nitrogen 17 mg/dl (9-20); Calcium 8.8 mg/dl (8.4-10.2); Carbon Dioxide 27 mmol/L (22-30); Chloride 103 mmol/L (98-107); Estimated Creatinine Clearance 106 ml/min; Glucose 186 mg/dl (70-99); Potassium 4.8 mmol/L (3.5-5.1); Sodium 136 mmol/L (135-145); eGFR > 60.00
--- NOTE | 2025-05-25 19:13 | PTCARENOTE ---
Assumed care of pt. approx 0700.
Post op via PACU to ICU for hypotension concerns.
Upon arrival hypertensive via art line metric --> correlating within 10pts of NIBP.
Epi/Norepi gtt turned off.
Nitro patch removed from patient per ICU RAMON.
Remains normotensive, mentating approp, offers no complaints of pain.
Surgical dressing C/D/I --> pulses present via palpation.
[2025-05-25 19:27] LABS: Magnesium 1.7 mg/dl (1.6-2.3)
[2025-05-25] MEDS: COLACE 100 MG PO (19:27)
[2025-05-25] MEDS: NOVOLOG FLEXPEN-LOW RESISTANCE 1 UNITS SC (20:19)
[2025-05-25] MEDS: LANTUS 0.03 UNITS SC (21:16)
[2025-05-25] MEDS: MELATONIN 3 MG PO (21:17)
--- NOTE | 2025-05-25 23:37 | PTCARENOTE ---
Addendum entered by Jignesh Woo RN 05/26/25 00:24:
POC GLU did not cross over into [employer]. Value 341 confirmed x2 RN.
Original Note:
Elevated Glu ICU RAMON notified see DEC.
Briefly restarted on Norepi --> pt. temporized and now remains off vasopressor. See titration flowsheets.
Sporadic periods of confusion however can be re oriented.
[2025-05-25] MEDS: NOVOLOG FLEXPEN 10 UNITS SC (23:48)
[2025-05-25] MEDS: ANCEF 5 IV (23:48)
[2025-05-25] MEDS: NOVOLOG FLEXPEN-LOW RESISTANCE 4 UNITS SC (23:48)
[2025-05-26] VITALS (34 sets, daily range): BP systolic 80–191; BP diastolic 53–113; BMI 25.7
--- NOTE | 2025-05-26 02:55 | PTCARENOTE ---
Art line removed.
No further changes in assessment.
[2025-05-26 03:19] LABS: Hematocrit 28.5 % (39.0-52.0); Hemoglobin 8.8 g/dL (13.0-18.0); Mean Corp Hgb Conc. 30.9 g/dL (33.0-37.0); Mean Corpuscular Volume 91.6 fL (80.0-94.0); Platelet Count 177 10^3/uL (130-400); Red Cell Dist. Width 13.4 % (11.5-14.5)
[2025-05-26 03:41] LABS: ALT (SGPT) 16 U/L (0-50); AST (SGOT) 16 U/L (17-59); Albumin 3.3 g/dl (3.5-5.0); Alkaline Phosphatase 75 U/L (38-126); Blood Urea Nitrogen 20 mg/dl (9-20); Calcium 8.8 mg/dl (8.4-10.2); Carbon Dioxide 30 mmol/L (22-30); Chloride 104 mmol/L (98-107); Estimated Creatinine Clearance 106 ml/min; Glucose 329 mg/dl (70-99); Potassium 4.3 mmol/L (3.5-5.1); Sodium 137 mmol/L (135-145); Total Protein 5.5 g/dl (6.3-8.2); eGFR > 60.00
[2025-05-26] MEDS: NOVOLOG FLEXPEN 10 UNITS SC (04:53)
[2025-05-26] MEDS: DILAUDID 0.5 MG IV ×2 (05:36→21:52)
[2025-05-26] MEDS: NOVOLOG FLEXPEN-LOW RESISTANCE 3 UNITS SC (05:57)
[2025-05-26 06:04] LABS: Glucose - Point of Care 268 mg/dl (70-99)
[2025-05-26] MEDS: PULMICORT 0.5 MG INH ×2 (07:35→19:18)
[2025-05-26] MEDS: DUONEB 3 ML INH ×3 (07:35→19:18)
[2025-05-26] MEDS: MIRALAX 17 GRAMS PO (07:39)
[2025-05-26] MEDS: COLACE 100 MG PO ×2 (07:40→20:16)
[2025-05-26] MEDS: PLAVIX 75 MG PO (07:40)
[2025-05-26] MEDS: ALDACTONE 12.5 MG PO (07:40)
[2025-05-26 07:43] LABS: Glucose - Point of Care 165 mg/dl (70-99)
[2025-05-26] MEDS: FLOMAX 0.4 MG PO (07:44)
[2025-05-26] MEDS: LOW STRENGTH ASPIRIN 81 MG PO (07:44)
[2025-05-26] MEDS: PROTONIX 40 MG PO (07:44)
[2025-05-26] MEDS: ZITHROMAX 250 MG PO (07:44)
[2025-05-26] MEDS: ZOLOFT 200 MG PO (07:44)
[2025-05-26] MEDS: MUCINEX 1200 MG PO ×2 (07:45→20:16)
[2025-05-26] MEDS: RANEXA EXTENDED RELEASE 1000 MG PO ×2 (07:45→18:47)
[2025-05-26] MEDS: IMDUR (EXTENDED RELEASE) 30 MG PO (07:45)
[2025-05-26] MEDS: TYLENOL 1000 MG PO ×3 (07:45→21:55)
[2025-05-26] MEDS: WELLBUTRIN XL (24 hour extended release) 300 MG PO (07:45)
[2025-05-26] MEDS: ANCEF 5 IV (07:46)
[2025-05-26] MEDS: LIPITOR 80 MG PO (07:46)
[2025-05-26] MEDS: SODIUM CHLORIDE 1 GRAM PO ×4 (07:46→21:55)
[2025-05-26] MEDS: DELTASONE 10 MG PO (07:46)
[2025-05-26] MEDS: KCL 20 MEQ PO (07:46)
--- NOTE | 2025-05-26 07:55 | W.PN.INTV ---
Today's Communication / Plan
Recommendations
Transferred to ICU for hypotension--resolved, resumed on home antiHTNs
Stable respiratory status noted, in setting of COPD history--tolerated procedure, resume home inhalers
No new complaints, pain control PRN
OOB, PT/OT today
Transfer to today, we will sign off upon transfer
Assessment
-
70-year-old with underlying severe COPD on oxygen followed by Dr. Landeros as well as hypertension, hyperlipidemia, CAD, paroxysmal atrial fibrillation presented after sustaining a fall. Left hip fracture. We were consulted on 05/24/2025 for
pre-operatory pulmonary assessment.
Displaced femoral neck fracture s/p Left hip hemiarthroplasty 05/25/25
Postoperative hypotension, resolved
Status post fall with subsequent left intertrochanteric hip fracture
Advanced COPD-oxygen dependent 3 L nasal cannula.
Steroid-dependent 10 mg
Last acute exacerbation in 08/2023
Hyperglycemia
DNR/DNI
Conditions present prior to admission:
Recent hospital admissions for acute coronary syndrome.
Hospitalization-discharged 07/07/2023-COPD exacerbation, ESTHER, L1 subacute fracture
Very severe COPD-O2 dependent (3L)
Followed by Dr. Person, albuterol as needed, prednisone 10 mg daily and azithromycin 250 mg daily for anti-inflammatory properties.
Last time seen in office 02/2025.
FEV1 0.86 L or 30% of predicted. Severe gas exchange abnormality. 33%.
Quit smoking 01/2023.
CT chest 12/09/2024: Without pulmonary embolism. No parenchymal abnormalities.
Former joylda-650-cpyn-year quit 07/2023.
CAD.
Hypertension.
Hyperlipidemia.
PAF.
Chronic anticoagulation.
Cardiomyopathy.
Diastolic CHF.
Atrial flutter with a history of ablation
GERD.
Anxiety
Overweight
L1 vertebral fracture.
Endovascular AAA repair 2017. Femoral endarterectomy 2017. Lap cholecystectomy 2015. CABG 1998. Atrial flutter ablation 2018.
Plan:
S/p hemiarthroplasty POD #1
No reported intra-op issues, minimal EBL
Monitored overnight in ICU
Further postop care per team
From a COPD perspective patient appears to be at baseline.
Prolonged expiratory phase which is baseline per [facility] records.
Oxygen supplementation at baseline.
Not bronchospastic on exam
No recent acute exacerbation--tolerated procedure well
Continue current regimen:
nebulizer therapy with budesonide/DuoNebs-similar to outpatient.
Low-dose prednisone at 10 mg-May need stress dose of the steroids-defer to anesthesia.
Mucolytics.
-
Cardiology correspondence reviewed: High risk given history of significant coronary artery disease.
Hypotension postop noted, likely from induction and medications
Not on pressors, stable/resolved
Resumed on anti HTNs
s/p Hip intervention, ortho following
Continue postop management
PT/OT evals
-
Advance diet as tolerated
GI prophylaxis if indicated
Aspiration precautions
Speech eval if needed
Hb/platelets postoperatively stable, trend CBC for now
Can transfuse if indicated for Hb <7, plt <50 in surgical patients
DVT prophylaxis including SCDs
-
No signs/symptoms suspicious for infectious etiology at this time
Observe off antibiotics for now
Follow fever trend, WBC count
-
Can transfer to floors at this point, doing well
Diagnostic Data:
Chest x-ray 05/07/2025: Clear lungs.
CXR 07/04/23: NAD
Chest x-ray 09/05/2023-NAD
Chest x-ray 09/06/2023-NAD
CT chest 11/2024: Reviewed no acute abnormalities.
CT Chest PE study 02/07/22: No PE. Mild centrilobular emphysema. Severe CAD.
CT chest 09/06/2023-negative for pulm embolism, moderate emphysematous changes superimposed on probable mild interstitial edema
TTE 09-06-23 CONCLUSIONS
1. Left ventricle: The left ventricle is dilated and systolic function is low normal to mildly reduced with an estimated ejection fraction of 45 to 50%. The ventricle is globally hypokinetic. Definity contrast was utilized. Stage I diastolic
dysfunction
2. Right ventricle: Normal
3. Atria: Normal
4. Mitral valve: Mild mitral regurgitation
5. Aortic valve: No aortic stenosis or aortic insufficiency
6. Tricuspid valve: Trace tricuspid regurgitation. Estimated pulmonary artery systolic pressures are 25-30 mmHg
7. When compared to the most recent echocardiogram from 08/04/2021 there appears to be no significant change. LVEF is now estimated 45-50% with mild global hypokinesis. The EF was estimated to be 50% on the prior study
Echocardiogram 08/04/2021-EF 50%, no significant valvular abnormalities
PFT 04/07/2023: FVC 2.16/55%, FEV1 0.86/30%, ratio 40%, TLC 5.08/78%, DLCO 3.16/13%, DLCO/VA 0.73/19%. Severe obstruction. Mild restriction. Severely reduced diffusing capacity.
Critical Care time 45 mins -- The patient is admitted for acute critical illness for the treatment of vital organ failure and/or prevention of further life-threatening conditions. Total care includes time spent in review of history, physical exam,
medications, hemodynamic/ventilator parameters, laboratory data, imaging and discussion with house staff, pharmacy, respiratory therapy, residential real estate agent, and nursing.
Subjective Dataa
Subjective Data
Date of Service:
Date of Service: May 26, 2025
Chief Complaint: Gold Letterer Follow Up
Subjective:
Transferred to ICU for postop hypotension, did not require pressors
Nitro patch removed, BP Improved
No acute events ON, no new complaints
Resumed on home antiHTNs this AM
Objective Data
Data Reviewed
Vital Signs / I&O / Oxygen:
Vital Signs
Temp Pulse Resp BP Pulse Ox
97.9 F 68 16 147/81 97
05/26/25 03:14 05/26/25 07:40 05/26/25 07:36 05/26/25 07:40 05/26/25 07:36
Intake and Output
05/25/25 05/26/25 05/27/25
06:59 06:59 06:59
Intake Total 120 / 120 465.0 / 465.0
Output Total 475 / 475 2044 / 2044
Balance -355 / -355 -1580.0 / -1580.0
SaO2 97
Nasal Cannula flow liters per 3
minute
Physical Exam
General: Comfortable and Other (NAD)
HEENT: Normocephalic, Anicteric and Moist Mucous Membranes
Cardiovascular: S1-S2 and Regular Rhythm
Respiratory: Clear and Non-Labored Respirations
GI: Soft, Non Distended and Non Tender
Neurology: Awake, Alert, Oriented and No Motor Deficits
Skin: Warm, Dry and Good Color
Labs/Micro/Reports
Lab Data
05/26/25 02:57
05/26/25 02:57
Laboratory Results
05/25/25
18:39
PT 15.0 H
INR 1.15
APTT 30.8
[2025-05-26] MEDS: ROXICODONE 5 MG PO ×4 (07:56→23:45)
[2025-05-26] MEDS: COREG 12.5 MG PO ×2 (08:16→18:47)
--- NOTE | 2025-05-26 08:17 | PTCARENOTE ---
received patient from cage shift manager. patient is AAOx4. he is on 3L nasal cannula, with slight expiratory wheeze throughout. patient is sinus rhythm with BBB on monitor. he denies numbness/tingling. he has 2000 vee regular diet ordered, has mason
catheter draining yellow urine. left hip incision clean dry and intact. foot pumps on, can flex and extend ankle. administered patient medications, will obtain ekg per cardiology. Will review orders, call kuhn within reach.
--- NOTE | 2025-05-26 08:27 | W.PN.CARDCBS ---
Today's Communication / Plan
-
Repeat EKG
Aspirin/Plavix, goal-directed medical therapy/home medications
Routine postoperative care
Impression / Plan
-
Primary Maintainer [employer]: Dr. MILA Woo
Assessment:
Presentation with fall
L hip fracture status postrepair by orthopedics
CAD
s/p CABG 1998 at [facility] with GAR to LAD and free JONO Y graft from GAR to OM
cath showed progression of [place] CAD however patient bypass grafts 12/2019
cath 03/2025 with new OM lesion, felt to be high risk for intervention, medically managed
History of recovered ischemic cardiomyopathy, EF 50 to 55% by echo 11/2024
Chronic HFpEF
h/o NSVT
Chronic orthostatic hypotension
Sinus tachycardia
Paroxysmal atrial flutter
s/p ablation in 2017
Paroxysmal atrial fibrillation
diagnosed during 12/2019 admission without known recurrence
Not chronically anticoagulated due to patient's choice and low burden of atrial arrhythmia
PVD
h/o endovascular AAA repair and bilateral femoral artery endarterectomy and profundoplasty 07/2018
Type 2 diabetes
Hypertension
Hypercholesterolemia
Chronic right bundle-branch block
COPD on chronic supp O2, 3L
History of duodenal ulcer with microperforation in 2017
h/o daily ETOH use now abstinent
Former smoker
DNR
ECHO 09/06/23: Definity used, EF 45 to 50%, global hypokinesis, stage I diastolic dysfunction, mild MR, trace TR, PAP 25 to 30 mmHg
Echo 12/11/2024: EF 50 to 55%, no regional wall motion abnormalities, mild concentric LVH, no significant valvular disease
Echo 02/23/2025: EF 50%, mild to moderate concentric LVH, no significant valvular disease
Cath 04/17/25: GAR-LAD patent, JONO Ygraft GAR to OM with 95% distal stenosis.
Plan:
- Patient with 2 admissions in the last 2 months for chest pain and hypertension. Cardiac catheterization 04/18 with new OM stenosis, felt to be high risk for PCI and therefore medically managed. Antianginal regimen has been uptitrated without
recurrence of chest pain. He does have history of orthostasis in addition, complicating aggressive uptitration
- Had fall 05/15/2025 with scalp laceration requiring ER visit. He denies preceding dizziness, or syncope associated with event
- Now presents back with another fall and with left hip fracture by pelvis CT. Denies preceding dizziness or syncope with this event as well. head CT without acute abnormality
Patient is now status post repair by orthopedics
- Denies chest pain, shortness of breath
- EKG appears stable compared to prior, repeat pending this morning
- Recent echo 02/2025 with EF 50% as above
- On aspirin, resuming Plavix this a.m.
- He is presently a DNR. Historically he has not been ready for hospice.
�If EKG remains stable this a.m., will plan to sign off. Continue current goal-directed medical therapy and resume home medications as indicated. Continue aspirin/Plavix and antianginals
Progress Note - Maintainer [employer]
Subjective
Date of Service: May 26, 2025
Patient seen and examined's morning. No acute events overnight. Patient resting comfortably in bed. Patient denies any chest pain, shortness of breath, palpitations, or weakness. Patient notes hip discomfort status post repair no other
complaints at this time.
Objective
Labs:
05/26/25 02:57
05/26/25 02:57
Labs
Hgb 8.8 g/dL (13.0-18.0) L 05/26/25 02:57
Hct 28.5 % (39.0-52.0) L 05/26/25 02:57
Plt Count 177 10^3/uL (130-400) 05/26/25 02:57
PT 15.0 Sec (11.4-14.6) H 05/25/25 18:39
INR 1.15 05/25/25 18:39
APTT 30.8 Sec (23.4-35.0) 05/25/25 18:39
Sodium 137 mmol/L (135-145) 05/26/25 02:57
Potassium 4.3 mmol/L (3.5-5.1) 05/26/25 02:57
BUN 20 mg/dl (9-20) 05/26/25 02:57
Creatinine 0.6 mg/dL (0.7-1.3) L 05/26/25 02:57
Glucose 329 mg/dl (70-99) H 05/26/25 02:57
Troponins
05/24/25 05/25/25
18:35 06:16
Troponin I 0.028 0.027
Vital Signs and I&O:
Vital Signs
Temp Pulse Resp BP Pulse Ox
97.6 F 74 20 183/90 98
05/26/25 08:07 05/26/25 08:16 05/26/25 08:15 05/26/25 08:16 05/26/25 08:15
Vital Signs
Temp Pulse Resp BP Pulse Ox
97.6 F 74 20 183/90 98
05/26/25 08:07 05/26/25 08:16 05/26/25 08:15 05/26/25 08:16 05/26/25 08:15
Intake & Output
05/24/25 05/25/25 05/26/25 05/27/25
06:59 06:59 06:59 06:59
Intake Total 120 / 120 465.0 / 915.0 450 / 450
Output Total 475 / 475 5 / 2045
Balance -355 / -355 -1580.0 / -1130.0 450 / 450
Physical Exam
Physical Exam
GEN: No distress, awake, alert, oriented x3. on supp O2. chronically ill appearing
HEENT: supple, anicteric, mmm, eomi
LUNGS: Scattered expiratory wheezes
CV: Reg, S1/S2, 1/6 syst LSB, no murmur
ABD: soft, BS+, NT/ND
EXT: No cyanosis, clubbing, edema
NEURO: Gross non-focal
SKIN: Warm, pink, dry. No rash. Scabbed laceration to scalp. healing ecchymoses of R eye. scattered B/L UE ecchymoses in various stages of healing
Telemetry demonstrates sinus rhythm, PACs/PAT rare PVC
--- NOTE | 2025-05-26 08:50 | W.PN.ORTHO ---
Today's Communication / Plan
-
70 yo M POD1 left hip hemiarthroplasty under the direction of Dr. Mccarthy
--We appreciate the assistance of all teams in care of this patient. Continue tx per cardio/pulm/medicine. Step down from ICU once deemed medically stable by primary team.
--WBAT to LLE with walker. THPs x6-8 weeks. We appreciate the assistance of PT/OT.
--Resume Plavix and ASA.
--Pain control prn. Ice and elevation for pain and edema control.
--Hgb 8.8 this AM. Continue to monitor.
--Maintain surgical dressing until 2 weeks post-op. If removed at [facility], we will see the patient at 4 weeks post-op, otherwise follow up outpatient at 2 weeks post-op.
--Orthopedics will continue to follow along.
Assessment
.
Distal Motor Intact: Yes
Dressing:
Clean, dry and intact.
Plan
.
DVT Prophylaxis: Aspirin and Other (Plavix)
Activity:
Out of bed.
PT/OT
Subjective
.
.:
Mr. Bernard is POD1 following his left hip hemiarthroplasty performed by Dr. Mccarthy. He is resting comfortably in bed this morning. He does endorse pain about the hip, especially with movement. He was admitted to the ICU overnight for observation
following surgery, and has been stable overnight.
Vital Signs and Labs
.
Vital Signs and Labs:
Lab Results
05/26/25 02:57
05/26/25 02:57
Temp Pulse Resp BP Pulse Ox
97.6 F 74 20 183/90 98
05/26/25 08:07 05/26/25 08:16 05/26/25 08:15 05/26/25 08:16 05/26/25 08:27
PT 15.0 Sec (11.4-14.6) H 05/25/25 18:39
INR 1.15 05/25/25 18:39
Physical Exam
-
Directed exam of the left lower extremity reveals surgical dressing clean, dry and intact. Mild tenderness about the hip. Thigh soft and compressible. Calf soft and nontender. Patient able to wiggle toes, plantar and dorsiflex ankle. NVID.
[2025-05-26 11:58] LABS: Glucose - Point of Care 160 mg/dl (70-99)
[2025-05-26] MEDS: NOVOLOG FLEXPEN-LOW RESISTANCE 1 UNITS SC (12:38)
--- NOTE | 2025-05-26 13:55 | W.PN.HOSP.TC ---
Today's Communication/Plan
-
asa, plavix
monitor resp and cardiac status
DG
increase insulin
Assessment / Plan
Assessment / Plan
Physical Exam
General: No Apparent Distress and Other (midly tachypneic with prolonged expiration )
HEENT: PERRLA and Other (bruising noted along left forehead )
Respiratory: Decreased Breath Sounds; No Wheezes
Cardiac: S1/S2 and Regular Rhythm
GI: Soft and Non Tender
Musculoskeletal: No Edema
Skin: Warm and Dry; No Rash
Neuro: AO x 3
Psych: Calm
Mr. Justice Bernard is a 70 yo man with hx CAD (CABG 1998), recovered ischemic cardiomyopathy, PAD s/p AAA repair and bilateral femoral artery endarterectomy 07/2018, paroxysmal afib, DM II, HTN, HLD, COPD on chronic O2 2-3L, hx daily alcohol use now
abstinent, former smoker, recent admission for ACS where decision made for medical therapy (uptitrated Coreg, started on Plavix) presents to the ER post fall last night.
Left Intertrochanteric Hip Fracture
Superior and Inferior right pubic Rami Fracture
-POD1 left hip hemiarthroplasty- Dr. Mccarthy
-admit to telemetry
-Orthopedics consulted
--WBAT to LLE with walker. THPs x6-8 weeks. We appreciate the assistance of PT/OT.
--Resume Plavix and ASA.
--Pain control prn. Ice and elevation for pain and edema control.
--Maintain surgical dressing until 2 weeks post-op. If removed at SNF, we will see the patient at 4 weeks post-op, otherwise follow up outpatient at 2 weeks post-op.
-DVT ppx - ASA, Plavix
Coronary Artery Disease
CABG 1998
Recent admission for NSTEMI treated medically
Essential Hypertension
Hyperlipidemia
-continue GANG BOSS regimen:
Asa 81mg PO QD
Atorvastatin 80mg PO QD
Coreg 12.5mg PO BID
Imdur 30mg PO QD
Transdermal Nitro
Ranolazine 1G BID
Plavix
Severe COPD
Chronic Hypoxic Respiratory Insufficiency on 3L
-patient without active wheezing on exam.
-GANG BOSS Prednisone 10mg PO QD - monitor BP closely post-op, may need stress dose steroids
-GANG BOSS Azithromycin 250mg PO QD
-GANG BOSS inhalers
-Mucinex BID
Hyponatremia
-Na 137 on admit GANG BOSS Sodium tabs 1G QID
Recovered Ischemic Cardiomyopathy
-GANG BOSS Lasix MWF and Spironolactone
PAD s/p AAA repair and bilateral femoral artery endarterectomy 07/2018
paroxysmal atrial Fibrillation s/p ablation
-per patient's choice, not on OAC
BPH - GANG BOSS Flomax
Anxiety/Depression
-GANG BOSS Wellbutrin, Zoloft
IDDM
-hold pre-meal insulin for now (takes 3 units AC at home)
-Takes Lantus 7 units qhs at home, order half dose for now
GERD - GANG BOSS PPI
DVT PPx - SCD pre-op
DNR -confirmed on admission
Anticipated Discharge: 24 - 48 hours
Subjective/Interval History
-
Date of Service: May 26, 2025
Procedure well, recent ICU just for closer monitoring. Resumed aspirin and Plavix.
Objective Data
-
Labs:
Laboratory Results
05/26/25
02:57
WBC 10.1
Hgb 8.8 L
Hct 28.5 L
Plt Count 177
Sodium 137
Potassium 4.3
Chloride 104
Carbon Dioxide 30
BUN 20
Creatinine 0.6 L
Glucose 329 H
Calcium 8.8
Total Bilirubin 0.3
AST 16 L
ALT 16
Alkaline Phosphatase 75
Vital Signs:
Vital Signs
Temp Pulse Resp BP Pulse Ox
97.6 F 74 20 183/90 98
05/26/25 08:07 05/26/25 08:16 05/26/25 08:15 05/26/25 08:16 05/26/25 08:27
I&O
05/25/25 05/26/25 05/27/25
06:59 06:59 06:59
Intake Total 120 / 120 465.0 / 915.0 1170 / 1170
Output Total 475 / 475 2044
Balance -355 / -355 -1580.0 / -1130.0 1169 117
Review of Systems
-
History Source: Patient
All other systems: Not reviewed unless documented
Physical Exam
-
General: Well Developed, Well Nourished, No Apparent Distress and Appears Chronically Ill
HEENT: Normocephalic, Atraumatic, Moist Mucous Membranes, Anicteric and Oxygen
Respiratory: Non Labored Respirations and Decreased Breath Sounds; Negative Accessory Resp Muscle Use
Cardiac: Regular Rhythm and S1/S2; Negative Murmur, Rub, JVD or Gallop
GI: Soft, Nontender, Nondistended and Normal Bowel Sounds
Musculoskeletal: No Clubbing, No Cyanosis, No Edema and Other (Dressing: Clean, dry and intact.)
Skin: Warm, Dry and Normal Turgor; Negative Rash
Neuro: AO x 3 and Nonfocal/Grossly Intact; Negative Tremors
Psych: Calm
Data Reviewed
-
Diagnostic Radiology: Report Reviewed by me
Medical Tests (Nuc Med, Echo etc): Report Reviewed by me
Labs: Labs Reviewed by me and Discussed with Patient
[2025-05-26 16:45] LABS: Glucose - Point of Care 214 mg/dl (70-99)
[2025-05-26] MEDS: NOVOLOG FLEXPEN-LOW RESISTANCE 2 UNITS SC (16:50)
[2025-05-26] MEDS: NITROSTAT (SUBLINGUAL) 0.4 MG SL ×4 (17:41→20:10)
--- NOTE | 2025-05-26 21:01 | PTCARENOTE ---
pt start to experience CP 06/03 at 1730. Took VS and EKG sent via TT to Dr. Saldivar who rec I TT cardio Dr. Yang. Order for SL nitro x5 helpful, but pain would drop to 0 then CP would return. 2039 called slot machine key person hospitalist and FOREIGN BROADCAST SPECIALIST came to assess
pt. pt remained AOx3 is on 3l O2 baseline.
--- NOTE | 2025-05-26 21:04 | W.PN.UPDATE ---
Update Note
Progress Note Update
~ 20:30 Evaluated patient for c/o chest pain, rated 6-7 out of 10 and is now radiating to left arm. Patient has received 4 doses of sublingual nitro since 17:41 with only temporary relief. Vital signs BP 97/66. HR 86, pulsox 96% on 3L NC. Repeat
troponin and EKG. Reviewed case and EKG with Dr. Jacques, Cardiology. EKG similiar to prior, order Nitro gtt, if Troponin elevated, consider Heparin gtt if OK with orthopedics. Patient transferred to IVU for heparin gtt and closer monitoring.
Troponin resulted 0.059, per Cardiology, continue to trend at this time, if rising consider Heparin gtt if OK with Orthopedics. TT's Orthopedics, Dr. Malik production shift supervisor, for approval to start heparin gtt if needed, ok to start heparin gtt per
orthopedics. Next troponin due at 3 am, will start IV heparin gtt if troponin is trending up.
~ 5 am Troponin resulted at 1.720, Heparin gtt initiated.
[2025-05-26 21:45] LABS: Troponin I 0.059 ng/ml
[2025-05-26] MEDS: MELATONIN 3 MG PO (21:55)
[2025-05-26 22:04] LABS: Glucose - Point of Care 306 mg/dl (70-99)
[2025-05-26] MEDS: LANTUS 0.06 UNITS SC (22:37)
[2025-05-26 22:49] LABS: Glucose - Point of Care 312 mg/dl (70-99)
--- NOTE | 2025-05-26 22:54 | PTCARENOTE ---
The patient was presenting with persistent chest pain, rated 7/10, despite receiving 5 doses of nitroglycerin without relief. Blood pressure was trending down lowest at 97/66. Cardiology and Shoe Packer both notified. An ECG has been performed, and a
troponin level was ordered, which returned critically elevated at 0.059.
Given the patient's ongoing symptoms and critical troponin level patient was transferred to the IVU for further evaluation and management.
[2025-05-26] MEDS: NOVOLOG FLEXPEN 4 UNITS SC (23:02)
[2025-05-26] MEDS: ATIVAN 0.5 MG PO (23:29)
[2025-05-27] VITALS (41 sets, daily range): BP systolic 82–161; BP diastolic 55–120; BMI 26.2
[2025-05-27 01:39] LABS: Glucose - Point of Care 172 mg/dl (70-99)
--- NOTE | 2025-05-27 03:07 | PTCARENOTE ---
Rec'd pt as transfer from . Pt AAO*3, VSS, and SR on TELE monitor. Pt complaining of CP, nitro gtt initiated as ordered. Pt requested additional pain medication for pain in L hip, PRN oxycodone given as ordered. Pt with mason intact, oriented
to unit, and now resting with call kuhn in reach. See MAR and flowchart for full pt care and assessment.
Pt blood sugar elevated and red'd one time order for insulin for DIRECTOR OF ACADEMIC SUPPORT Sam. Blood sugar checked two hours post. 172.
[2025-05-27 04:29] LABS: Hematocrit 27.3 % (39.0-52.0); Hemoglobin 8.6 g/dL (13.0-18.0); Mean Corp Hgb Conc. 31.5 g/dL (33.0-37.0); Mean Corpuscular Volume 90.7 fL (80.0-94.0); Platelet Count 186 10^3/uL (130-400); Red Cell Dist. Width 13.7 % (11.5-14.5)
[2025-05-27 05:01] LABS: ALT (SGPT) 11 U/L (0-50); AST (SGOT) 21 U/L (17-59); Albumin 3.3 g/dl (3.5-5.0); Alkaline Phosphatase 80 U/L (38-126); Blood Urea Nitrogen 21 mg/dl (9-20); Calcium 8.9 mg/dl (8.4-10.2); Carbon Dioxide 28 mmol/L (22-30); Chloride 105 mmol/L (98-107); Estimated Creatinine Clearance 90 ml/min; Glucose 154 mg/dl (70-99); Potassium 4.7 mmol/L (3.5-5.1); Sodium 137 mmol/L (135-145); Total Protein 5.5 g/dl (6.3-8.2); eGFR > 60.00
[2025-05-27 05:08] LABS: Troponin I 1.720 ng/ml
[2025-05-27] MEDS: HEPARIN 25000 UNITS/250 ML IV (06:07)
[2025-05-27 06:46] LABS: APTT 22.6 Sec (23.4-35.0)
[2025-05-27] MEDS: PULMICORT 0.5 MG INH ×2 (06:56→19:55)
[2025-05-27] MEDS: DUONEB 3 ML INH ×3 (06:57→19:55)
--- NOTE | 2025-05-27 08:01 | W.PN.ORTHO ---
Today's Communication / Plan
-
Will follow.
Assessment
.
Distal Motor Intact: Yes
Dressing:
Clean, dry and intact.
Assessment:
POD #2 s/p Left hip hemiarthroplasty.
On IV heparin and nitroglycerin for elevated troponin
Plan
.
Surgery / Date: 05/25/2025
DVT Prophylaxis: Other (heparin)
Activity:
Out of bed.
PT/OT
Discharge Plan: Rehab
Subjective
.
.:
Patient resting comfortably. Patient in IVU. Complained of chest pain yesterday and has had rising troponin levels. Orthopedics agreed with heparinization. Patient currently on IV heparin. No complaints of chest pain or hip pain currently.
Vital Signs and Labs
.
Vital Signs and Labs:
Lab Results
05/27/25 04:16
Temp Pulse Resp BP Pulse Ox
98.3 F 76 16 118/71 97
05/27/25 03:26 05/27/25 06:57 05/27/25 06:57 05/27/25 00:17 05/27/25 03:26
PT 15.0 Sec (11.4-14.6) H 05/25/25 18:39
INR 1.15 05/25/25 18:39
Physical Exam
-
Pulm: nonlabored
LLE: Dressing CDI. NVI distally. Swelling about the left proximal thigh as expected. Calf soft
[2025-05-27] MEDS: COREG PO ×2 (08:21→19:35)
[2025-05-27] MEDS: KCL 20 MEQ PO (08:26)
[2025-05-27] MEDS: IMDUR (EXTENDED RELEASE) 30 MG PO (08:26)
[2025-05-27] MEDS: ZITHROMAX 250 MG PO (08:26)
[2025-05-27] MEDS: LIPITOR 80 MG PO (08:26)
[2025-05-27] MEDS: COLACE 100 MG PO ×2 (08:26→19:36)
[2025-05-27] MEDS: RANEXA EXTENDED RELEASE 1000 MG PO ×2 (08:26→19:36)
[2025-05-27] MEDS: TYLENOL 1000 MG PO ×3 (08:26→21:20)
[2025-05-27] MEDS: PROTONIX 40 MG PO (08:26)
[2025-05-27] MEDS: DELTASONE 10 MG PO (08:27)
[2025-05-27] MEDS: LOW STRENGTH ASPIRIN 81 MG PO (08:27)
[2025-05-27] MEDS: ZOLOFT 200 MG PO (08:27)
[2025-05-27] MEDS: ALDACTONE 12.5 MG PO (08:27)
[2025-05-27] MEDS: MUCINEX 1200 MG PO ×2 (08:28→19:36)
[2025-05-27] MEDS: MIRALAX 17 GRAMS PO (08:28)
[2025-05-27] MEDS: SODIUM CHLORIDE 1 GRAM PO ×4 (08:28→21:21)
[2025-05-27] MEDS: FLOMAX 0.4 MG PO (08:28)
[2025-05-27] MEDS: PLAVIX 75 MG PO (08:28)
[2025-05-27] MEDS: WELLBUTRIN XL (24 hour extended release) 300 MG PO (08:28)
[2025-05-27] MEDS: ROXICODONE 5 MG PO ×2 (08:40→22:13)
[2025-05-27 09:21] LABS: Glucose - Point of Care 183 mg/dl (70-99)
[2025-05-27 09:28] LABS: Hematocrit 27.1 % (39.0-52.0); Hemoglobin 8.5 g/dL (13.0-18.0); Mean Corp Hgb Conc. 31.4 g/dL (33.0-37.0); Mean Corpuscular Volume 91.9 fL (80.0-94.0); Platelet Count 199 10^3/uL (130-400); Red Cell Dist. Width 13.7 % (11.5-14.5)
--- NOTE | 2025-05-27 10:16 | W.PN.CARDCBS ---
Today's Communication / Plan
-
Continue IV heparin, nitroglycerin
Continue aspirin/Plavix/goal-directed medical therapy
Monitor on telemetry
Trend troponin to peak
Impression / Plan
-
Primary Matrix Drier Tender: Dr. MILA Woo
Assessment:
Presentation with fall
L hip fracture status postrepair by orthopedics
NSTEMI
� Initial postoperative troponin 0.059, repeat 1.72
� Started on heparin gtt.
� Chest pain-free on nitroglycerin
CAD
s/p CABG 1998 at [facility] with GAR to LAD and free JONO Y graft from GAR to OM
cath showed progression of [place] CAD however patient bypass grafts 12/2019
cath 03/2025 with new OM lesion, felt to be high risk for intervention, medically managed
History of recovered ischemic cardiomyopathy, EF 50 to 55% by echo 11/2024
Chronic HFpEF
h/o NSVT
Chronic orthostatic hypotension
Sinus tachycardia
Paroxysmal atrial flutter
s/p ablation in 2017
Paroxysmal atrial fibrillation
diagnosed during 12/2019 admission without known recurrence
Not chronically anticoagulated due to patient's choice and low burden of atrial arrhythmia
PVD
h/o endovascular AAA repair and bilateral femoral artery endarterectomy and profundoplasty 07/2018
Type 2 diabetes
Hypertension
Hypercholesterolemia
Chronic right bundle-branch block
COPD on chronic supp O2, 3L
History of duodenal ulcer with microperforation in 2018
h/o daily ETOH use now abstinent
Former smoker
DNR
ECHO 09/06/23: Definity used, EF 45 to 50%, global hypokinesis, stage I diastolic dysfunction, mild MR, trace TR, PAP 25 to 30 mmHg
Echo 12/11/2024: EF 50 to 55%, no regional wall motion abnormalities, mild concentric LVH, no significant valvular disease
Echo 02/23/2025: EF 50%, mild to moderate concentric LVH, no significant valvular disease
Cath 04/17/25: GAR-LAD patent, JONO Ygraft GAR to OM with 95% distal stenosis.
Plan:
- Patient with 2 admissions in the last 2 months for chest pain and hypertension. Cardiac catheterization 04/18 with new OM stenosis, felt to be high risk for PCI and therefore medically managed. Antianginal regimen has been uptitrated without
recurrence of chest pain. He does have history of orthostasis in addition, complicating aggressive uptitration
- Had fall 05/15/2025 with scalp laceration requiring ER visit. He denies preceding dizziness, or syncope associated with event
- Now presents back with another fall and with left hip fracture by pelvis CT. Denies preceding dizziness or syncope with this event as well. head CT without acute abnormality
�Patient is now status post repair by orthopedics
- Overnight 05/26/2025 - 05/27/2025, patient experiencing increasing chest discomfort. In discussion with patient, noted to be related to left hip pain causing elevation of blood pressure leading to chest pain. Chest pain improved with nitroglycerin
and BP improvement. Patient started on heparin, nitroglycerin drip for treatment of NSTEMI
- EKG appears stable compared to prior, no significant changes
- Recent echo 02/2025 with EF 50% as above
- On aspirin/Plavix
- He is presently a DNR. Historically he has not been ready for hospice.
� Continue goal-directed medical therapy, aspirin, Plavix, treat NSTEMI with nitroglycerin and heparin; trend troponin to peak; encourage appropriate pain control for recent hip fracture
Progress Note - Matrix Drier Tender
Subjective
Date of Service: May 27, 2025
Patient seen and examined. Patient experiencing episodes of periodic chest discomfort now resolved on nitroglycerin and heparin. Denies shortness of breath, palpitations, or weakness. Patient reporting that chest pain came as result of hip pain
causing his blood pressure to go up leading to the chest discomfort.
Objective
Labs:
05/27/25 09:08
05/27/25 04:16
Labs
Hgb 8.5 g/dL (13.0-18.0) L 05/27/25 09:08
Hct 27.1 % (39.0-52.0) L 05/27/25 09:08
Plt Count 199 10^3/uL (130-400) 05/27/25 09:08
PT 15.0 Sec (11.4-14.6) H 05/25/25 18:39
INR 1.15 05/25/25 18:39
APTT 22.6 Sec (23.4-35.0) L 05/27/25 05:43
Sodium 137 mmol/L (135-145) 05/27/25 04:16
Potassium 4.7 mmol/L (3.5-5.1) 05/27/25 04:16
BUN 21 mg/dl (9-20) H 05/27/25 04:16
Creatinine 0.7 mg/dL (0.7-1.3) 05/27/25 04:16
Glucose 154 mg/dl (70-99) H 05/27/25 04:16
Troponins
05/24/25 05/25/25 05/26/25
18:35 06:16 21:13
Troponin I 0.028 0.027 0.059 H*
05/27/25
04:16
Troponin I 1.720 H* D
Vital Signs and I&O:
Vital Signs
Temp Pulse Resp BP Pulse Ox
97.7 F 71 12 95/55 97
05/27/25 08:19 05/27/25 08:27 05/27/25 08:19 05/27/25 08:27 05/27/25 03:26
Vital Signs
Temp Pulse Resp BP Pulse Ox
97.7 F 71 12 95/55 97
05/27/25 08:19 05/27/25 08:27 05/27/25 08:19 05/27/25 08:27 05/27/25 03:26
Intake & Output
05/25/25 05/26/25 05/27/25 05/28/25
06:59 06:59 06:59 06:59
Intake Total 120 / 120 465.0 / 915.0 1170 / 1170
Output Total 475 / 475 2045 / 2045 550 / 550
Balance -355 / -355 -1580.0 / -1130.0 620 / 620
Physical Exam
Physical Exam
GEN: No distress, awake, alert, oriented x3. on supp O2. chronically ill appearing
HEENT: supple, anicteric, mmm, eomi
LUNGS: Scattered expiratory wheezes
CV: Reg, S1/S2, 1/6 syst LSB, no murmur
ABD: soft, BS+, NT/ND
EXT: No cyanosis, clubbing, edema
NEURO: Gross non-focal
SKIN: Warm, pink, dry. No rash. Scabbed laceration to scalp. healing ecchymoses of R eye. scattered B/L UE ecchymoses in various stages of healing
Telemetry demonstrates sinus rhythm, PACs/PAT rare PVC
[2025-05-27 10:18] LABS: Troponin I 1.780 ng/ml
[2025-05-27] MEDS: NOVOLOG FLEXPEN-LOW RESISTANCE 1 UNITS SC (10:27)
[2025-05-27 12:25] LABS: APTT 44.4 Sec (23.4-35.0)
[2025-05-27 13:44] LABS: Glucose - Point of Care 242 mg/dl (70-99)
[2025-05-27] MEDS: NOVOLOG FLEXPEN-LOW RESISTANCE 2 UNITS SC ×2 (13:44→18:09)
--- NOTE | 2025-05-27 14:15 | W.PN.HOSP.TC ---
Today's Communication/Plan
-
Hep and nitro ggt
ASA, Statin, GDMT
Insulin adjustment
Trend Trops to peak
Assessment / Plan
Assessment / Plan
Physical Exam
General: No Apparent Distress and Other (midly tachypneic with prolonged expiration )
HEENT: PERRLA and Other (bruising noted along left forehead )
Respiratory: Decreased Breath Sounds; No Wheezes
Cardiac: S1/S2 and Regular Rhythm
GI: Soft and Non Tender
Musculoskeletal: No Edema
Skin: Warm and Dry; No Rash
Neuro: AO x 3
Psych: Calm
Mr. Justice Bernard is a 70 yo man with hx CAD (CABG 1998), recovered ischemic cardiomyopathy, PAD s/p AAA repair and bilateral femoral artery endarterectomy 07/2018, paroxysmal afib, DM II, HTN, HLD, COPD on chronic O2 2-3L, hx daily alcohol use now
abstinent, former smoker, recent admission for ACS where decision made for medical therapy (uptitrated Coreg, started on Plavix) presents to the ER post fall last night.
Left Intertrochanteric Hip Fracture
Superior and Inferior right pubic Rami Fracture
-POD2 left hip hemiarthroplasty- Dr. Mccarthy
-admit to telemetry
-Orthopedics consulted
--WBAT to LLE with walker. THPs x6-8 weeks. We appreciate the assistance of PT/OT.
--Resume Plavix and ASA.
--Pain control prn. Ice and elevation for pain and edema control.
--Maintain surgical dressing until 2 weeks post-op. If removed at SNF, we will see the patient at 4 weeks post-op, otherwise follow up outpatient at 2 weeks post-op.
-DVT ppx - ASA, Plavix
#Chest pain
#NSTEMI
-Trend troponin to peak, initial postoperative troponin 0.059, repeat 1.72
-Continue heparin drip
-Chest pain-free on nitroglycerin
-Continue aspirin, Plavix, GDMT
�cardiology on board
-Trend troponin
Coronary Artery Disease
CABG 1998
Recent admission for NSTEMI treated medically
Essential Hypertension
Hyperlipidemia
-continue NEW CLIENT BANKING SERVICES CLERK regimen:
Asa 81mg PO QD
Atorvastatin 80mg PO QD
Coreg 12.5mg PO BID
Imdur 30mg PO QD
Transdermal Nitro
Ranolazine 1G BID
Plavix
Severe COPD
Chronic Hypoxic Respiratory Insufficiency on 3L
-patient without active wheezing on exam.
-NEW CLIENT BANKING SERVICES CLERK Prednisone 10mg PO QD - monitor BP closely post-op, may need stress dose steroids
-NEW CLIENT BANKING SERVICES CLERK Azithromycin 250mg PO QD
-NEW CLIENT BANKING SERVICES CLERK inhalers
-Mucinex BID
Hyponatremia
-Na 137 on admit NEW CLIENT BANKING SERVICES CLERK Sodium tabs 1G QID
Recovered Ischemic Cardiomyopathy
-NEW CLIENT BANKING SERVICES CLERK Lasix MWF and Spironolactone
PAD s/p AAA repair and bilateral femoral artery endarterectomy 07/2018
paroxysmal atrial Fibrillation s/p ablation
-per patient's choice, not on OAC
BPH - NEW CLIENT BANKING SERVICES CLERK Flomax
Anxiety/Depression
-NEW CLIENT BANKING SERVICES CLERK Wellbutrin, Zoloft
IDDM
-hold pre-meal insulin for now (takes 3 units AC at home)
-Takes Lantus 7 units qhs at home, resume
GERD - NEW CLIENT BANKING SERVICES CLERK PPI
DVT PPx - SCD ; Hep ggt
DNR -confirmed on admission
Total Critical Care Time 45 minutes. I was immediately available to the patient and staff. I personally examined, reviewed labs, diagnostic images/reports, interpretations, treatment plans, discussed patient care with other providers and family
or caregivers (if patient is unable to make decisions), entered orders as appropriate and documented the medical record.
Anticipated Discharge: > 48 hours
Subjective/Interval History
-
Date of Service: May 27, 2025
Chest pain yesterday night, initiated on IV heparin, nitroglycerin; no chest pain in the morning
Objective Data
-
Labs:
Laboratory Results
05/27/25 05/27/25 05/27/25
04:16 05:43 09:08
WBC 10.2 10.2
Hgb 8.6 L 8.5 L
Hct 27.3 L 27.1 L
Plt Count 186 199
APTT 22.6 L
Sodium 137
Potassium 4.7
Chloride 105
Carbon Dioxide 28
BUN 21 H
Creatinine 0.7
Glucose 154 H
Calcium 8.9
Total Bilirubin 0.4
AST 21
ALT 11
Alkaline Phosphatase 80
05/27/25 05/27/25
12:03 18:30
WBC
Hgb
Hct
Plt Count
APTT 44.4 H Pending
Sodium
Potassium
Chloride
Carbon Dioxide
BUN
Creatinine
Glucose
Calcium
Total Bilirubin
AST
ALT
Alkaline Phosphatase
Vital Signs:
Vital Signs
Temp Pulse Resp BP Pulse Ox
97.9 F 81 16 95/55 95
05/27/25 11:52 05/27/25 14:06 05/27/25 14:06 05/27/25 08:27 05/27/25 11:52
I&O
05/26/25 05/27/25 05/28/25
06:59 06:59 06:59
Intake Total 465.0 / 915.0 1170 / 1170
Output Total 2044 / 5 550 / 550 450 / 450
Balance -1580.0 / -1130.0 620 / 620 -450 / -450
Review of Systems
-
History Source: Patient
All other systems: Not reviewed unless documented
Data Reviewed
-
Diagnostic Radiology: Report Reviewed by me
Medical Tests (Nuc Med, Echo etc): Report Reviewed by me
Labs: Labs Reviewed by me and Discussed with Patient
[2025-05-27 17:10] LABS: Troponin I 0.932 ng/ml
[2025-05-27 17:34] LABS: Glucose - Point of Care 206 mg/dl (70-99)
[2025-05-27] MEDS: ATIVAN 0.5 MG PO (18:08)
[2025-05-27 19:17] LABS: APTT 66.2 Sec (23.4-35.0)
--- NOTE | 2025-05-27 19:30 | PTCARENOTE ---
report received from previous RN, walking rounds done. pt in bed, AAOx4. pt denies any chest pain at this time. SBP 80s. Nitro gtt decreased from 44mg to 40mg. Heparin gtt infusing per protocol. ST on monitor, HR low 100s. B/L radial and DP pulses
weakly palpable. edema noted throughout. heart tones distant. B/L breath sounds present and coarse. POX 94% on room air. bowel sounds present. mason catheter intact, draining CYU. PIV intact and patent. turning pt Q2H and as needed. see worklist for
full assessment, VS, and interventions. pt resting comfortably.
--- NOTE | 2025-05-27 19:41 | PTCARENOTE ---
~7237-2038: Handoff report received from nightshift RN. Pt AOx4, NSR BBB on tele 70s, distant heart tones, SBP 90s, coreg held, chronically 3L NC satting 94%, lungs diminished. Pt c/o L hip pain, PRN Tequila given. Pt denies CP at this time, Heparin
gtt and Nitro gtt infusing. Frequent turning utilized. L hip dressing CDI. SCDs in place. Dressing on L FA CDI. Chronic mason in place, foly care provided by PCT. Mason draining ivy urine. Troponin and PTT drawn and sent to lab. All needs met at
this time, call kuhn within reach.
~4423-5049: With Ax2, patient stood at bedside for about 20 seconds. C/o dizziness. When patient sat back on side of bed, patient went unresponsive. 2 RNs laid patient back onto bed and patient quickly became alert. BP 97/68, no CP. Cardiology and
Hospitalist made aware, no new orders at this time.
~5750-5607: Bloodwork drawn and sent to lab.
~7410-0982: Patient resting in bed. Frequent turning utilized. Pt does not c/o pain at this time. All needs met, call kuhn within reach.
~7743-2928: Patient c/o CP at 1800, Nitro gtt titrated per protocol. Patient also feeling anxious at this time, SBP 160s, PRN ativan given. Patient also intermittently confused/ wifty. BPs remain stable with increase in nitro gtt. Hospitalist and
cardiology made aware. All needs met at this time, call kuhn within reach. Handoff report given to nightshift RN.
--- NOTE | 2025-05-27 20:00 | PTCARENOTE ---
report received from previous RN, walking rounds done. pt in bed, AAOx4. pt denies any chest pain at this time. SBP 80s. Nitro gtt decreased from 44mg to 40mg. Heparin gtt infusing per protocol. ST on monitor, HR low 100s. B/L radial and DP pulses
weakly palpable. edema noted throughout. heart tones distant. B/L breath sounds present and coarse. POX 94% on 3LNC. bowel sounds present. mason catheter intact, draining CYU. PIV intact and patent. turning pt Q2H and as needed. see worklist for
full assessment, VS, and interventions. pt resting comfortably.
[2025-05-27 21:20] LABS: Glucose - Point of Care 253 mg/dl (70-99)
[2025-05-27] MEDS: MELATONIN 3 MG PO (21:21)
[2025-05-27] MEDS: LANTUS 0.07 UNITS SC (21:22)
[2025-05-27 22:06] LABS: Troponin I 0.593 ng/ml
[2025-05-28] VITALS (31 sets, daily range): BP systolic 80–147; BP diastolic 54–92; PULSE 82–101; BMI 26.0
--- NOTE | 2025-05-28 03:00 | PTCARENOTE ---
no acute changes overnight, VSS. pt forgetful at times but oriented. ST 100s. Nitro gtt infusing @ 45 mg, mild intermittent chest pain. Heparin gtt maintained per protocol. SBP 110s-120s. POX 94% on 3LNC. AM labs drawn and sent. pt sleeping between
care.
[2025-05-28 03:22] LABS: Hematocrit 24.2 % (39.0-52.0); Hemoglobin 7.9 g/dL (13.0-18.0); Mean Corp Hgb Conc. 32.6 g/dL (33.0-37.0); Mean Corpuscular Volume 89.3 fL (80.0-94.0); Platelet Count 193 10^3/uL (130-400); Red Cell Dist. Width 13.7 % (11.5-14.5)
[2025-05-28 03:33] LABS: APTT 65.5 Sec (23.4-35.0)
[2025-05-28 04:04] LABS: ALT (SGPT) 12 U/L (0-50); AST (SGOT) 18 U/L (17-59); Albumin 3.2 g/dl (3.5-5.0); Alkaline Phosphatase 75 U/L (38-126); Blood Urea Nitrogen 17 mg/dl (9-20); Calcium 8.9 mg/dl (8.4-10.2); Carbon Dioxide 29 mmol/L (22-30); Chloride 103 mmol/L (98-107); Estimated Creatinine Clearance 106 ml/min; Glucose 173 mg/dl (70-99); Potassium 4.1 mmol/L (3.5-5.1); Sodium 135 mmol/L (135-145); Total Protein 5.5 g/dl (6.3-8.2); eGFR > 60.00
[2025-05-28] MEDS: PULMICORT 0.5 MG INH ×2 (08:01→20:03)
[2025-05-28] MEDS: DUONEB 3 ML INH ×3 (08:01→20:03)
[2025-05-28] MEDS: ALDACTONE 12.5 MG PO (08:13)
[2025-05-28] MEDS: TYLENOL 1000 MG PO ×3 (08:15→22:13)
[2025-05-28] MEDS: COLACE 100 MG PO ×2 (08:15→21:08)
[2025-05-28] MEDS: ROXICODONE 5 MG PO (08:15)
[2025-05-28] MEDS: RANEXA EXTENDED RELEASE 1000 MG PO ×2 (08:16→21:06)
[2025-05-28] MEDS: MIRALAX 17 GRAMS PO (08:17)
[2025-05-28] MEDS: WELLBUTRIN XL (24 hour extended release) 300 MG PO (08:18)
[2025-05-28] MEDS: SODIUM CHLORIDE 1 GRAM PO ×4 (08:18→22:13)
[2025-05-28] MEDS: ZITHROMAX 250 MG PO (08:18)
[2025-05-28] MEDS: ZOLOFT 200 MG PO (08:19)
[2025-05-28] MEDS: DELTASONE 10 MG PO (08:19)
[2025-05-28] MEDS: PLAVIX 75 MG PO (08:20)
[2025-05-28] MEDS: LIPITOR 80 MG PO (08:20)
[2025-05-28] MEDS: PROTONIX 40 MG PO (08:20)
[2025-05-28] MEDS: FLOMAX 0.4 MG PO (08:21)
[2025-05-28] MEDS: KCL 20 MEQ PO (08:21)
[2025-05-28] MEDS: LOW STRENGTH ASPIRIN 81 MG PO (08:21)
[2025-05-28] MEDS: MUCINEX 1200 MG PO ×2 (08:22→21:08)
[2025-05-28] MEDS: COREG 12.5 MG PO ×2 (08:33→21:07)
[2025-05-28 08:39] LABS: Glucose - Point of Care 172 mg/dl (70-99)
[2025-05-28 08:39] LABS: Glucose - Point of Care 341 mg/dl (70-99)
[2025-05-28] MEDS: NOVOLOG FLEXPEN-LOW RESISTANCE 1 UNITS SC ×2 (08:54→16:17)
--- NOTE | 2025-05-28 10:01 | W.PN.UPDATE ---
Update Note
Progress Note Update
Patient now POD#3 LEFT hip hemiarthroplasty via Dr. Mccarthy. continue treatment per the special warfare combatant crewman and cardiac teams. Currently on IV heparin. Left hip dressing intact without strikethrough. Expected postop changes of the left hip. DNVI LLE. If
deemed safe may be WBAT on a walker maintaining THPs. when medically optimized and discharged outpatient follow-up recommended in [address] Mccarthy or one of his PAs
--- NOTE | 2025-05-28 10:04 | PTCARENOTE ---
Pt c/o L hip pain, med with Roxicodone 5 mg PO as ordered with some relief noted. Pt currently working with PT/OT, orders renewed by Dr Cruz.
--- NOTE | 2025-05-28 10:21 | W.PN.HOSP.TC ---
Today's Communication/Plan
-
Stop IV nitroglycerin
Orthostatics
PT/OT
Discharge planning
Assessment / Plan
Assessment / Plan
Gen-AAOx3, NAD
HEENT-NC, AT, anicteric, clear oral mm
Neck-supple
CV-reg, no M, +S1/S2
Lungs-clear B/L
Abd-soft, NT, ND
Ext-no edema
Musculoskeletal-no cyanosis, clubbing
Skin-warm and dry
Neuro-grossly non-focal
Psych-calm, cooperative
Acute left Intertrochanteric Hip Fracture
Superior and Inferior right pubic Rami Fracture
Underwent successful left hip hemiarthroplasty, 05/25/2025.
--WBAT to LLE with walker. THPs x6-8 weeks. We appreciate the assistance of PT/OT.
-- Continue Plavix and ASA.
--Pain control prn. Ice and elevation for pain and edema control.
--Maintain surgical dressing until 2 weeks post-op. If removed at SNF, we will see the patient at 4 weeks post-op, otherwise follow up outpatient at 2 weeks post-op.
-DVT ppx - ASA, Plavix
NSTEMI -chest pain-free.
- Troponin trended down.
- Stop IV heparin when okay with cardiology.
- IV nitroglycerin discontinued due to hypotension this morning.
-Continue aspirin, Plavix, GDMT
CAD/CABG 1998
Recent admission for NSTEMI treated medically
Essential Hypertension -hypotensive this morning. Nitroglycerin drip discontinued. Check orthostatics.
Hyperlipidemia
-continue JAVASCRIPT ENGINEER regimen:
Asa 81mg PO QD
Atorvastatin 80mg PO QD
Coreg 12.5mg PO BID
Imdur 30mg PO QD
Transdermal Nitro
Ranolazine 1G BID
Plavix
Severe COPD without exacerbation
Chronic Hypoxic Respiratory Insufficiency on 3L
-patient without active wheezing on exam.
-JAVASCRIPT ENGINEER Prednisone 10mg PO QD - monitor BP closely post-op, may need stress dose steroids
-JAVASCRIPT ENGINEER Azithromycin 250mg PO QD
-JAVASCRIPT ENGINEER inhalers
-Mucinex BID
Hyponatremia
-Na 137 on admit JAVASCRIPT ENGINEER Sodium tabs 1G QID
Recovered Ischemic Cardiomyopathy
-JAVASCRIPT ENGINEER Lasix MWF and Spironolactone
PAD s/p AAA repair and bilateral femoral artery endarterectomy 07/2018
paroxysmal atrial Fibrillation s/p ablation
-per patient's choice, not on OAC
BPH - JAVASCRIPT ENGINEER Flomax
Anxiety/Depression
-JAVASCRIPT ENGINEER Wellbutrin, Zoloft
DM 2 with hyperglycemia -hemoglobin A1c 8.0%. Glucose 173 this morning.
-hold pre-meal insulin for now (takes 3 units AC at home)
- Continue Lantus 7 units at bedtime.
GERD - JAVASCRIPT ENGINEER PPI
Chronic urinary retention -with chronic Vogel catheter.
DVT PPx - SCD ; Hep ggt
DNR -confirmed on admission
[facility] -[facility] when cleared by cardiology.
Anticipated Discharge: Within 24 hours
Subjective/Interval History
-
Date of Service: May 28, 2025
Patient seen and examined, no complaints.
Objective Data
-
Labs:
Laboratory Results
05/28/25 05/28/25
02:58 10:00
WBC 10.9 H
Hgb 7.9 L
Hct 24.2 L
Plt Count 193
APTT 65.5 H Pending
Sodium 135
Potassium 4.1
Chloride 103
Carbon Dioxide 29
BUN 17
Creatinine 0.6 L
Glucose 173 H
Calcium 8.9
Total Bilirubin 0.5
AST 18
ALT 12
Alkaline Phosphatase 75
Vital Signs:
Vital Signs
Temp Pulse Resp BP Pulse Ox
97.9 F 96 16 115/71 97
05/28/25 06:59 05/28/25 09:00 05/28/25 08:04 05/28/25 09:00 05/28/25 08:04
I&O
05/27/25 05/28/25 05/29/25
06:59 06:59 06:59
Intake Total 1170 / 1170
Output Total 550 / 550 1075 / 1075
Balance 620 / 620 -1075 / -1075
Review of Systems
-
History Source: Patient
All other systems: Reviewed and negative
--- NOTE | 2025-05-28 10:38 | W.PN.CARDCBS ---
Addendum entered and electronically signed by Milli Acharya DO 05/28/25 15:22:
I saw and examined the patient.
The Bog Cutter's note was reviewed and I agree with the note.
Comment: Patient was seen and examined with nursing at bedside along with cardiac PA. This morning hypotensive on IV nitroglycerin which has since been discontinued. Sleepy status post oxycodone. Denies chest pain.
General: Sleepy but answering questions. Awake.
Heart: Regular, positive S1/S2, no murmur
Lungs: Bronchovesicular breath sounds decreased but clear
Abd: Positive BS, NT/ND, neg rebound/rigidity/guarding
Ext: LEFT hip hemiarthroplasty. Trace lower extremity edema
Plan:
Medically complex 70-year-old gentleman admitted following a fall with left hip fracture complicated by non-STEMI with peak troponin 1.78. He underwent left hip arthroplasty with Dr. Mccarthy 05/25/2025
-Supportive postoperative management
-Orthostatic this morning on IV nitroglycerin which was discontinued. Will also add midodrine
Known coronary artery disease status post remote CABG with cardiac catheterization in March with new OM lesion felt to be high risk for intervention and being medically managed.
-No current episodes of chest pain
-Discontinue IV nitroglycerin
-Discontinue IV heparin
-Continue antianginals and medical therapy
-Midodrine added to support blood pressure
Will follow with you
Original Note:
Today's Communication / Plan
-
He is unable to work with PT/OT due to orthostasis, will add midodrine 2.5 mg TID starting today
Nitro gtt stopped by hospitalist attending
Heparin gtt stopped by cardiology
Impression / Plan
-
Primary Centerless Grinder Operator: Dr. MILA Woo
Assessment:
Presentation with fall and hip fracture 05/24/25
Left hip fracture status postrepair by orthopedics
NSTEMI, peak Troponin 1.78 this admission
CAD
s/p CABG 1998 at [facility] with GAR to LAD and free JONO Y graft from GAR to OM
cath showed progression of [place] CAD however patient bypass grafts 12/2019
cath 03/2025 with new OM lesion, felt to be high risk for intervention, medically managed
NSTEMI 05/26/25
History of recovered ischemic cardiomyopathy, EF 50 to 55% by echo 11/2024
Chronic HFpEF
h/o NSVT
Chronic orthostatic hypotension
Sinus tachycardia
Paroxysmal atrial flutter
s/p ablation in 2017
Paroxysmal atrial fibrillation
diagnosed during 12/2019 admission without known recurrence
Not chronically anticoagulated due to patient's choice and low burden of atrial arrhythmia
PVD
h/o endovascular AAA repair and bilateral femoral artery endarterectomy and profundoplasty 07/2018
Type 2 diabetes
Hypertension
Hypercholesterolemia
Chronic right bundle-branch block
COPD on chronic supp O2, 3L
History of duodenal ulcer with microperforation in 2017
h/o daily ETOH use now abstinent
Former smoker
DNR
ECHO 09/06/23: Definity used, EF 45 to 50%, global hypokinesis, stage I diastolic dysfunction, mild MR, trace TR, PAP 25 to 30 mmHg
Echo 12/11/2024: EF 50 to 55%, no regional wall motion abnormalities, mild concentric LVH, no significant valvular disease
Echo 02/23/2025: EF 50%, mild to moderate concentric LVH, no significant valvular disease
Cath 04/17/25: GAR-LAD patent, JONO Ygraft GAR to OM with 95% distal stenosis.
Plan:
-Patient with two admissions in the last 2 months for chest pain and hypertension. Cardiac catheterization 04/17/25 showed new OM stenosis, felt to be high risk for PCI and therefore medically managed. Antianginal regimen has been uptitrated
without recurrence of chest pain. He does have history of orthostasis in addition, complicating aggressive uptitration. Now admitted with fall and hip fracture and had a NSTEMI with peak Troponin 1.78.
-Patient had left hip repair 05/25/25. PT/OT limited by orthostasis.
-Patient iwth chronic orthostasis that has limited medical management of CAD in the past. Start midodrine 2.5 mg TID 05/28/25, orders placed by me.
-From a cardiac standpoint, patient does not have many options due to OM lesion being distal to JONO graft and ANAM grafts are prone to dissection and tortuosity and force will be required to deliver equipment which may increase this risk and if a
complication occurs there would be limited treatment options. The OM is not small but is also not comparable to the LAD in vascular territory or myocardium supplied.
-Outpatient dose of Ranexa 1000 mg BID continued
-Nitro gtt was running, but stopped 05/28/25. Outpatient dose of Imdur ER 30 mg daily has been continued.
-Heparin gtt was running, but stopped by me 05/28/25
-Nitro gtt being started in the ER
-Outpatient dose of Coreg 12.5 mg BID should be continued as BP tolerates
-Outpatient dose of Lasix 20 mg MWF should be continued
-Outpatient dose of spironolactone 12.5 mg daily should be continued
-Outpatient dose of aspirin 81 mg daily has been continued
-Outpatient dose of Plavix 75 mg daily has been continued
Progress Note - Centerless Grinder Operator
Subjective
Date of Service: May 28, 2025
He feels lightheaded
Objective
Labs:
05/28/25 02:58
05/28/25 02:58
Labs
Hgb 7.9 g/dL (13.0-18.0) L 05/28/25 02:58
Hct 24.2 % (39.0-52.0) L 05/28/25 02:58
Plt Count 193 10^3/uL (130-400) 05/28/25 02:58
PT 15.0 Sec (11.4-14.6) H 05/25/25 18:39
INR 1.15 05/25/25 18:39
APTT 65.5 Sec (23.4-35.0) H 05/28/25 02:58
Sodium 135 mmol/L (135-145) 05/28/25 02:58
Potassium 4.1 mmol/L (3.5-5.1) 05/28/25 02:58
BUN 17 mg/dl (9-20) 05/28/25 02:58
Creatinine 0.6 mg/dL (0.7-1.3) L 05/28/25 02:58
Glucose 173 mg/dl (70-99) H 05/28/25 02:58
Troponins
05/26/25 05/27/25 05/27/25
21:13 04:16 09:08
Troponin I 0.059 H* 1.720 H* D 1.780 H*
05/27/25 05/27/25
16:13 21:34
Troponin I 0.932 H* D 0.593 H* D
Vital Signs and I&O:
Vital Signs
Temp Pulse Resp BP Pulse Ox
97.9 F 99 16 93/71 97
05/28/25 06:59 05/28/25 10:11 05/28/25 08:04 05/28/25 10:11 05/28/25 08:04
Vital Signs
Temp Pulse Resp BP Pulse Ox
97.9 F 99 16 93/71 97
05/28/25 06:59 05/28/25 10:11 05/28/25 08:04 05/28/25 10:11 05/28/25 08:04
Intake & Output
05/26/25 05/27/25 05/28/25 05/29/25
06:59 06:59 06:59 06:59
Intake Total 465.0 / 915.0 1170 / 1170
Output Total 2045 / 2045 550 / 550 1075 / 1075
Balance -1580.0 / -1130.0 620 / 620 -1075 / -1075
Physical Exam
Physical Exam
GEN: NAD. AAOx3
LUNGS: RA. Clear anterolaterally
CV: SR on tele
[2025-05-28 11:46] LABS: Glucose - Point of Care 282 mg/dl (70-99)
--- NOTE | 2025-05-28 11:58 | CM ---
Chart reviewed. 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 Plan is for the patient to return to [place] [facility]. CM to follow
[2025-05-28] MEDS: LASIX 20 MG PO (13:12)
[2025-05-28] MEDS: NOVOLOG FLEXPEN-LOW RESISTANCE 3 UNITS SC (13:12)
[2025-05-28 13:40] LABS: Hematocrit 26.1 % (39.0-52.0); Hemoglobin 8.3 g/dL (13.0-18.0)
[2025-05-28] MEDS: IMDUR (EXTENDED RELEASE) PO (14:37)
[2025-05-28 15:29] LABS: Glucose - Point of Care 178 mg/dl (70-99)
--- NOTE | 2025-05-28 16:25 | PTCARENOTE ---
Pt drowsy most of the day, awakens to voice. This afternoon is eating an early dinner and is awake and conversive. BP 122/71.
[2025-05-28 17:55] LABS: Glucose - Point of Care 229 mg/dl (70-99)
[2025-05-28 21:55] LABS: Glucose - Point of Care 143 mg/dl (70-99)
[2025-05-28] MEDS: MELATONIN 3 MG PO (22:13)
[2025-05-28] MEDS: LANTUS 0.07 UNITS SC (22:13)
--- NOTE | 2025-05-28 23:50 | PTCARENOTE ---
Received pt at change of shift resting in bed. SR w/ PAC's and BBBC on tele, HR in the 80's. pt denies any CP or SOB. pt on a Q2H turn schedule and hip precautions maintained. Fall risk precautions maintained, pt calls appropriately. Call kuhn
within reach.
[2025-05-29] VITALS (14 sets, daily range): BP systolic 96–139; BP diastolic 61–83; PULSE 89–99; O2SAT 96; BMI 26.0
[2025-05-29 04:36] LABS: Hematocrit 27.6 % (39.0-52.0); Hemoglobin 8.7 g/dL (13.0-18.0); Mean Corp Hgb Conc. 31.5 g/dL (33.0-37.0); Mean Corpuscular Volume 89.9 fL (80.0-94.0); Platelet Count 206 10^3/uL (130-400); Red Cell Dist. Width 13.7 % (11.5-14.5)
[2025-05-29 05:06] LABS: ALT (SGPT) 11 U/L (0-50); AST (SGOT) 17 U/L (17-59); Albumin 3.5 g/dl (3.5-5.0); Alkaline Phosphatase 74 U/L (38-126); Blood Urea Nitrogen 16 mg/dl (9-20); Calcium 9.1 mg/dl (8.4-10.2); Carbon Dioxide 27 mmol/L (22-30); Chloride 103 mmol/L (98-107); Estimated Creatinine Clearance 106 ml/min; Glucose 131 mg/dl (70-99); Potassium 4.2 mmol/L (3.5-5.1); Sodium 137 mmol/L (135-145); Total Protein 5.9 g/dl (6.3-8.2); eGFR > 60.00
[2025-05-29] MEDS: ROXICODONE 5 MG PO ×2 (05:38→20:54)
--- NOTE | 2025-05-29 07:03 | W.PN.UPDATE ---
Update Note
Progress Note Update
Patient now POD#4 LEFT hip hemiarthroplasty via Dr. Mccarthy. Continue treatment per the primary and cardiac teams. IV heparin discontinued.
PE: Left hip dressing intact without strikethrough. Expected post-op changes of the left hip. DNVI LLE.
Plan:
- If deemed safe, may be WBAT to LLE with walker. THPs x 6-8 weeks. We appreciate the assistance of PT/OT.
- Continue Plavix and ASA for DVT ppx.
- Pain control PRN per primary team. Ice and elevation for pain and edema control.
- Maintain surgical dressing until 2 weeks post-op. Follow-up as outpatient at 2 weeks post-op for radiographs and wound check.
- Orthopedic surgery will sign-off at this time. Please reengage with any further questions or concerns.
[2025-05-29] MEDS: DUONEB 3 ML INH ×3 (07:26→19:13)
[2025-05-29] MEDS: PULMICORT 0.5 MG INH ×2 (07:27→19:13)
[2025-05-29 07:38] LABS: Glucose - Point of Care 152 mg/dl (70-99)
[2025-05-29] MEDS: SODIUM CHLORIDE 1 GRAM PO ×4 (08:40→20:55)
[2025-05-29] MEDS: ZITHROMAX 250 MG PO (08:40)
[2025-05-29] MEDS: RANEXA EXTENDED RELEASE 1000 MG PO ×2 (08:40→20:55)
[2025-05-29] MEDS: MUCINEX 1200 MG PO ×2 (08:41→20:55)
[2025-05-29] MEDS: LIPITOR 80 MG PO (08:42)
[2025-05-29] MEDS: PLAVIX 75 MG PO (08:42)
[2025-05-29] MEDS: DELTASONE 10 MG PO (08:43)
[2025-05-29] MEDS: COLACE 100 MG PO (08:43)
[2025-05-29] MEDS: TYLENOL 1000 MG PO ×3 (08:43→20:55)
[2025-05-29] MEDS: LOW STRENGTH ASPIRIN 81 MG PO (08:43)
[2025-05-29] MEDS: WELLBUTRIN XL (24 hour extended release) 300 MG PO (08:44)
[2025-05-29] MEDS: IMDUR (EXTENDED RELEASE) 30 MG PO (08:44)
[2025-05-29] MEDS: ALDACTONE 12.5 MG PO (08:45)
[2025-05-29] MEDS: ZOLOFT 200 MG PO (08:46)
[2025-05-29] MEDS: FLOMAX 0.4 MG PO (08:46)
[2025-05-29] MEDS: COREG 12.5 MG PO ×2 (08:46→20:56)
[2025-05-29] MEDS: KCL 20 MEQ PO (08:47)
[2025-05-29] MEDS: PROTONIX 40 MG PO (08:49)
[2025-05-29] MEDS: MIRALAX 17 GRAMS PO (08:51)
[2025-05-29] MEDS: NOVOLOG FLEXPEN-LOW RESISTANCE 1 UNITS SC ×2 (08:51→14:37)
--- NOTE | 2025-05-29 09:12 | W.PN.HOSP.TC ---
Addendum entered and electronically signed by Ky Cruz DO 05/29/25 14:03:
Anemia, multifactorial due to acute blood loss and hemodilution
Original Note:
Today's Communication/Plan
-
Continue current care
Assessment / Plan
Assessment / Plan
Gen-AAOx3, NAD
HEENT-NC, AT, anicteric, clear oral mm
Neck-supple
CV-reg, no M, +S1/S2
Lungs-clear B/L
Abd-soft, NT, ND
Ext-no edema
Musculoskeletal-no cyanosis, clubbing
Skin-warm and dry
Neuro-grossly non-focal
Psych-calm, cooperative
Acute left Intertrochanteric Hip Fracture
Superior and Inferior right pubic Rami Fracture
Underwent successful left hip hemiarthroplasty, 05/25/2025.
--WBAT to LLE with walker. THPs x6-8 weeks. We appreciate the assistance of PT/OT.
-- Continue Plavix and ASA.
--Pain control prn. Ice and elevation for pain and edema control.
--Maintain surgical dressing until 2 weeks post-op. If removed at SNF, we will see the patient at 4 weeks post-op, otherwise follow up outpatient at 2 weeks post-op.
-DVT ppx - ASA, Plavix
NSTEMI -chest pain noted this morning, now resolved. EKG with normal sinus rhythm, right bundle branch block.
- Troponin trended down.
Off IV heparin and nitroglycerin.
-Continue aspirin, Plavix, GDMT
CAD/CABG 1998
Recent admission for NSTEMI treated medically
Essential Hypertension -hypotension resolved with midodrine 3 times daily.
Hyperlipidemia
-continue [employer]POINT ARCHIT[employer] regimen:
Asa 81mg PO QD
Atorvastatin 80mg PO QD
Coreg 12.5mg PO BID
Imdur 30mg PO QD
Transdermal Nitro
Ranolazine 1G BID
Plavix
Severe COPD without exacerbation
Chronic Hypoxic Respiratory Insufficiency on 3L
-patient without active wheezing on exam.
-[employer] ARCHITECT Prednisone 10mg PO QD - monitor BP closely post-op, may need stress dose steroids
-[employer]POINT ARCHITECT Azithromycin 250mg PO QD
-[employer]POINT ARCHITECT inhalers
-Mucinex BID
Hyponatremia
-Na 137 on admit SHAREPOINT ARCHITECT Sodium tabs 1G QID
Recovered Ischemic Cardiomyopathy
-SH[employer] ARCHIT[employer] Lasix MWF and Spironolactone
PAD s/p AAA repair and bilateral femoral artery endarterectomy 07/2018
paroxysmal atrial Fibrillation s/p ablation
-per patient's choice, not on OAC
BPH - [employer] ARCHITECT Flomax
Anxiety/Depression
-[employer] ARCHIT[employer] Wellbutrin, Zoloft
DM 2 with hyperglycemia -hemoglobin A1c 8.0%. Glucose 173 this morning.
-hold pre-meal insulin for now (takes 3 units AC at home)
- Continue Lantus 7 units at bedtime.
GERD - SH[employer]POINT ARCHITECT PPI
Chronic urinary retention -with chronic Vogel catheter.
DVT PPx - SCD ; Hep ggt
DNR -confirmed on admission
Dispo -back to [facility] when cleared by cardiology.
Anticipated Discharge: Within 24 hours
Subjective/Interval History
-
Date of Service: May 29, 2025
Patient seen and examined. Had chest pain this morning, lasted for 2 hours. Currently chest pain-free.
Objective Data
-
Labs:
Laboratory Results
05/29/25
04:25
WBC 11.1 H
Hgb 8.7 L
Hct 27.6 L
Plt Count 206
Sodium 137
Potassium 4.2
Chloride 103
Carbon Dioxide 27
BUN 16
Creatinine 0.6 L
Glucose 131 H
Calcium 9.1
Total Bilirubin 0.6
AST 17
ALT 11
Alkaline Phosphatase 74
Vital Signs:
Vital Signs
Temp Pulse Resp BP Pulse Ox
98.4 F 84 18 129/83 100
05/29/25 07:31 05/29/25 07:31 05/29/25 07:31 05/29/25 03:38 05/29/25 07:31
I&O
05/28/25 05/29/25 05/30/25
06:59 06:59 06:59
Intake Total 360 / 360
Output Total 1075 / 1075 1700 / 1700
Balance -1075 / -1075 -1340 / -1340
Review of Systems
-
History Source: Patient
All other systems: Reviewed and negative
--- NOTE | 2025-05-29 10:18 | W.PN.CARDCBS ---
Today's Communication / Plan
-
EKG no change
He has chronic stable angina with CAD that is currently medical therapy
Imdur resumed this AM, if still with cp add additional Imdur 30 mg today and increase to 60 mg tomorrow
Impression / Plan
-
Primary Product Safety Manager: Dr. MILA Woo
Impression:
Presentation with fall and hip fracture 05/24/25
Left hip fracture status post repair by orthopedics
NSTEMI, peak Troponin 1.78 this admission
CAD
s/p CABG 1998 at [facility] with GAR to LAD and free JONO Y graft from GAR to OM
cath showed progression of havasupai CAD however patient bypass grafts 12/2019
cath 03/2025 with new OM lesion, felt to be high risk for intervention, medically managed
NSTEMI 05/26/25
History of recovered ischemic cardiomyopathy, EF 50 to 55% by echo 11/2024
Chronic HFpEF
h/o NSVT
Chronic orthostatic hypotension
Sinus tachycardia
Paroxysmal atrial flutter
s/p ablation in 2017
Paroxysmal atrial fibrillation
diagnosed during 12/2019 admission without known recurrence
Not chronically anticoagulated due to patient's choice and low burden of atrial arrhythmia
PVD
h/o endovascular AAA repair and bilateral femoral artery endarterectomy and profundoplasty 07/2018
Type 2 diabetes
Hypertension
Hypercholesterolemia
Chronic right bundle-branch block
COPD on chronic supp O2, 3L
History of duodenal ulcer with microperforation in 2018
h/o daily ETOH use now abstinent
Former smoker
DNR
ECHO 09/06/23: Definity used, EF 45 to 50%, global hypokinesis, stage I diastolic dysfunction, mild MR, trace TR, PAP 25 to 30 mmHg
Echo 12/11/2024: EF 50 to 55%, no regional wall motion abnormalities, mild concentric LVH, no significant valvular disease
Echo 02/23/2025: EF 50%, mild to moderate concentric LVH, no significant valvular disease
Cath 04/17/25: GAR-LAD patent, JONO Ygraft GAR to OM with 95% distal stenosis.
Plan:
HPI: Patient with two admissions in the last 2 months for chest pain and hypertension. Cardiac catheterization 04/17/25 showed new OM stenosis, felt to be high risk for PCI and therefore medically managed. Antianginal regimen has been uptitrated
without recurrence of chest pain. He does have history of orthostasis in addition, complicating aggressive uptitration. Now admitted with fall and hip fracture and had a NSTEMI with peak Troponin 1.78.
Cont post op care as per orthopedics s/p left hip repair 05/25/25. PT/OT limited by orthostasis.
CP this AM 05/29, EKG no change
He has chronic stable angina with CAD that is currently medical therapy
Imdur resumed this AM, if still with cp add additional Imdur 30 mg today and increase to 60 mg tomorrow
Cont Midodrine 2.5 mg TID for chronic orthostasis, that has limited medical management of CAD in the past. S
From a cardiac standpoint, patient does not have many options due to OM lesion being distal to JONO graft and ANAM grafts are prone to dissection and tortuosity and force will be required to deliver equipment which may increase this risk and if a
complication occurs there would be limited treatment options. The OM is not small but is also not comparable to the LAD in vascular territory or myocardium supplied.
-Outpatient dose of Ranexa 1000 mg BID continued
Cont medical regimen:
-Outpatient dose of Coreg 12.5 mg BID should be continued as BP tolerates
-Outpatient dose of Lasix 20 mg MWF should be continued
-Outpatient dose of spironolactone 12.5 mg daily should be continued
-Outpatient dose of aspirin 81 mg daily has been continued
-Outpatient dose of Plavix 75 mg daily has been continued
Discussed with nursing and primary service
Progress Note - Product Safety Manager
Subjective
Date of Service: May 29, 2025
Pt seen and examined. CP this am
Objective
Labs:
05/29/25 04:25
05/29/25 04:25
Labs
Hgb 8.7 g/dL (13.0-18.0) L 05/29/25 04:25
Hct 27.6 % (39.0-52.0) L 05/29/25 04:25
Plt Count 206 10^3/uL (130-400) 05/29/25 04:25
PT 15.0 Sec (11.4-14.6) H 05/25/25 18:39
INR 1.15 05/25/25 18:39
APTT Cancelled 05/28/25 14:02
Sodium 137 mmol/L (135-145) 05/29/25 04:25
Potassium 4.2 mmol/L (3.5-5.1) 05/29/25 04:25
BUN 16 mg/dl (9-20) 05/29/25 04:25
Creatinine 0.6 mg/dL (0.7-1.3) L 05/29/25 04:25
Glucose 131 mg/dl (70-99) H 05/29/25 04:25
Troponins
05/26/25 05/27/25 05/27/25
21:13 04:16 09:08
Troponin I 0.059 H* 1.720 H* D 1.780 H*
05/27/25 05/27/25
16:13 21:34
Troponin I 0.932 H* D 0.593 H* D
Vital Signs and I&O:
Vital Signs
Temp Pulse Resp BP Pulse Ox
98.4 F 84 18 129/83 100
05/29/25 07:31 05/29/25 07:31 05/29/25 07:31 05/29/25 03:38 05/29/25 07:31
Vital Signs
Temp Pulse Resp BP Pulse Ox
98.4 F 84 18 129/83 100
05/29/25 07:31 05/29/25 07:31 05/29/25 07:31 05/29/25 03:38 05/29/25 07:31
Intake & Output
05/27/25 05/28/25 05/29/25 05/30/25
06:59 06:59 06:59 06:59
Intake Total 1170 / 1170 360 / 360
Output Total 550 / 550 1075 / 1075 1700 / 1700
Balance 620 / 620 -1075 / -1075 -1340 / -1340
Physical Exam
Physical Exam
General: No acute distress, AAOX3
Neck: Negative JVD
Heart: Regular, Negative S3 positive S1/S2, Negative S4, No murmur
Lungs: CTA b/l, negative wheezes/rales/rhonchi
Abd: Positive BS, NT/ND, neg rebound/rigidity/guarding
Ext: Negative cyanosis/clubbing/edema
Neuro: nonfocal
--- NOTE | 2025-05-29 10:28 | CM ---
Chart reviewed. 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 Plan is for the patient to return to [facility] when medically stable. CM to follow
--- NOTE | 2025-05-29 13:34 | PN.CDI ---
CDI
- -
CDI:
Physician Documentation Request
Admit Date: 05/24/25 13:08
Dear Doctor Nancy,
Clinical Indicators:
Patient admitted Acute left Intertrochanteric Hip Fracture; s/p left hip hemiarthroplasty 05/25.
Anesthesia Report, EBL 50 ml IVF: 1800
05/27 (19:41) RN note, '...patient stood at bedside for about 20 seconds. C/o dizziness.'
Hgb/Hct trend:
05/24/25 05/28/25 05/29/25
09:15 02:58 04:25
Hgb 10.0 L 7.9 L 8.7 L
Hct 32.8 L 24.2 L 27.6 L
Based on the above, could you clarify in the progress notes, the appropriate diagnosis, if significant, that supports the above abnormalities and additional evaluation, monitoring and/or treatment rendered:
Anemia, multifactorial due to acute blood loss and hemodilution
Anemia due to hemodilution only
Anemia, other; please specify
Other
Use of terms such as suspected, likely, concern for, or probable (associated with a specific diagnosis that is being evaluated, monitored, or treated as if it exists) are acceptable and can be coded in the inpatient setting, when documented at the
time of discharge.
Thank you,
Mildred Drake RN
CDI Specialist
available via tiger text
Please use your independent medical judgment in providing your response.
[2025-05-29 13:51] LABS: Glucose - Point of Care 184 mg/dl (70-99)
--- NOTE | 2025-05-29 15:39 | PTCARENOTE ---
Pt was eating lunch and may have aspirated some of his macaroni and cheese. He was able to forcefully cough and clear out some noodles. He states he is feeling better now. He is on O2 at 3L/min, O2 sat 95%. Dr Cruz notified.
[2025-05-29 17:18] LABS: Glucose - Point of Care 299 mg/dl (70-99)
[2025-05-29] MEDS: NOVOLOG FLEXPEN-LOW RESISTANCE 3 UNITS SC (18:49)
[2025-05-29] MEDS: LANTUS 0.07 UNITS SC (20:54)
[2025-05-29] MEDS: MELATONIN 3 MG PO (20:56)
[2025-05-29 21:02] LABS: Glucose - Point of Care 351 mg/dl (70-99)
[2025-05-29] MEDS: COLACE PO (21:35)
[2025-05-29] MEDS: NOVOLOG FLEXPEN 6 UNITS SC (22:10)
[2025-05-29] MEDS: DILAUDID 0.5 MG IV (22:14)
[2025-05-30] VITALS (24 sets, daily range): BP systolic 79–169; BP diastolic 53–125; PULSE 71–81; BMI 25.9
[2025-05-30 02:41] LABS: Hematocrit 26.2 % (39.0-52.0); Hemoglobin 8.4 g/dL (13.0-18.0); Mean Corp Hgb Conc. 32.1 g/dL (33.0-37.0); Mean Corpuscular Volume 89.7 fL (80.0-94.0); Platelet Count 212 10^3/uL (130-400); Red Cell Dist. Width 13.7 % (11.5-14.5)
[2025-05-30 03:01] LABS: ALT (SGPT) 11 U/L (0-50); AST (SGOT) 19 U/L (17-59); Albumin 3.3 g/dl (3.5-5.0); Alkaline Phosphatase 74 U/L (38-126); Blood Urea Nitrogen 19 mg/dl (9-20); Calcium 9.3 mg/dl (8.4-10.2); Carbon Dioxide 25 mmol/L (22-30); Chloride 105 mmol/L (98-107); Estimated Creatinine Clearance 106 ml/min; Glucose 151 mg/dl (70-99); Potassium 4.4 mmol/L (3.5-5.1); Sodium 136 mmol/L (135-145); Total Protein 5.8 g/dl (6.3-8.2); eGFR > 60.00
--- NOTE | 2025-05-30 06:11 | PTCARENOTE ---
Assumed care of the pt @ 1900. Pt is AAOx2-3 SR on the monitor VSS c/o left hip pain see MAR for pain administration. Chronic mason on place CHG done. Call kuhn within reach.
[2025-05-30] MEDS: PULMICORT 0.5 MG INH ×2 (07:49→19:24)
[2025-05-30] MEDS: DUONEB 3 ML INH ×3 (07:49→19:24)
--- NOTE | 2025-05-30 08:07 | PTCARENOTE ---
Patient resting in bed this morning, receiving nebulizer treatment, remains in SR on 3L NC with pulse ox of 94%.
[2025-05-30 08:49] LABS: Glucose - Point of Care 140 mg/dl (70-99)
[2025-05-30] MEDS: NOVOLOG FLEXPEN-LOW RESISTANCE SC (09:08)
[2025-05-30] MEDS: MIRALAX PO (09:09)
[2025-05-30] MEDS: COLACE PO ×2 (09:09→22:14)
[2025-05-30] MEDS: FLOMAX 0.4 MG PO (09:11)
[2025-05-30] MEDS: ALDACTONE 12.5 MG PO (09:11)
[2025-05-30] MEDS: RANEXA EXTENDED RELEASE 1000 MG PO ×2 (09:12→22:14)
[2025-05-30] MEDS: ZOLOFT 200 MG PO (09:12)
[2025-05-30] MEDS: SODIUM CHLORIDE 1 GRAM PO ×4 (09:13→22:14)
[2025-05-30] MEDS: MUCINEX 1200 MG PO ×2 (09:13→22:14)
[2025-05-30] MEDS: ZITHROMAX 250 MG PO (09:13)
[2025-05-30] MEDS: TYLENOL 1000 MG PO ×3 (09:13→22:13)
[2025-05-30] MEDS: LOW STRENGTH ASPIRIN 81 MG PO (09:13)
[2025-05-30] MEDS: KCL 20 MEQ PO (09:13)
[2025-05-30] MEDS: PLAVIX 75 MG PO (09:14)
[2025-05-30] MEDS: COREG 12.5 MG PO ×2 (09:14→22:13)
[2025-05-30] MEDS: DELTASONE 10 MG PO (09:14)
[2025-05-30] MEDS: LIPITOR 80 MG PO (09:14)
[2025-05-30] MEDS: PROTONIX 40 MG PO (09:14)
[2025-05-30] MEDS: WELLBUTRIN XL (24 hour extended release) 300 MG PO (09:15)
[2025-05-30] MEDS: LASIX 20 MG PO (09:15)
[2025-05-30] MEDS: FLUSH (NSS) 1 FLUSH IV (09:18)
[2025-05-30] MEDS: IMDUR (EXTENDED RELEASE) 30 MG PO (09:18)
--- NOTE | 2025-05-30 09:34 | W.PN.CARDCBS ---
Today's Communication / Plan
-
Cont post op care as per orthopedics s/p left hip repair 05/25/25. PT/OT limited by orthostasis.
No recurrent CP after AM 05/29, EKG no change
He has chronic stable angina with CAD that is currently medical therapy
Imdur resumed with no additional chest pain
Cont Midodrine 2.5 mg TID for chronic orthostasis, that has limited medical management of CAD in the past. Reduce to BID given hypertension this am.
From a cardiac standpoint, patient does not have many options due to OM lesion being distal to JONO graft and ANAM grafts are prone to dissection and tortuosity and force will be required to deliver equipment which may increase this risk and if a
complication occurs there would be limited treatment options. The OM is not small but is also not comparable to the LAD in vascular territory or myocardium supplied.
-Outpatient dose of Ranexa 1000 mg BID continued
Cont medical regimen:
-Outpatient dose of Coreg 12.5 mg BID should be continued as BP tolerates
-Outpatient dose of Lasix 20 mg MWF should be continued
-Outpatient dose of spironolactone 12.5 mg daily should be continued
-Outpatient dose of aspirin 81 mg daily has been continued
-Outpatient dose of Plavix 75 mg daily has been continued
Discussed with primary service
Impression / Plan
-
Primary Lens Generating Machine Tender: Dr. MILA Woo
Impression:
Presentation with fall and hip fracture 05/24/25
Left hip fracture status post repair by orthopedics
NSTEMI, peak Troponin 1.78 this admission
CAD
s/p CABG 1998 at [facility] with GAR to LAD and free JONO Y graft from GAR to OM
cath showed progression of ramona CAD however patient bypass grafts 12/2019
cath 03/2025 with new OM lesion, felt to be high risk for intervention, medically managed
NSTEMI 05/26/25
History of recovered ischemic cardiomyopathy, EF 50 to 55% by echo 11/2024
Chronic HFpEF
h/o NSVT
Chronic orthostatic hypotension
Sinus tachycardia
Paroxysmal atrial flutter
s/p ablation in 2018
Paroxysmal atrial fibrillation
diagnosed during 12/2019 admission without known recurrence
Not chronically anticoagulated due to patient's choice and low burden of atrial arrhythmia
PVD
h/o endovascular AAA repair and bilateral femoral artery endarterectomy and profundoplasty 07/2018
Type 2 diabetes
Hypertension
Hypercholesterolemia
Chronic right bundle-branch block
COPD on chronic supp O2, 3L
History of duodenal ulcer with microperforation in 2018
h/o daily ETOH use now abstinent
Former smoker
DNR
ECHO 09/06/23: Definity used, EF 45 to 50%, global hypokinesis, stage I diastolic dysfunction, mild MR, trace TR, PAP 25 to 30 mmHg
Echo 12/11/2024: EF 50 to 55%, no regional wall motion abnormalities, mild concentric LVH, no significant valvular disease
Echo 02/23/2025: EF 50%, mild to moderate concentric LVH, no significant valvular disease
Cath 04/17/25: GAR-LAD patent, JONO Ygraft GAR to OM with 95% distal stenosis.
Plan:
HPI: Patient with two admissions in the last 2 months for chest pain and hypertension. Cardiac catheterization 04/17/25 showed new OM stenosis, felt to be high risk for PCI and therefore medically managed. Antianginal regimen has been uptitrated
without recurrence of chest pain. He does have history of orthostasis in addition, complicating aggressive uptitration. Now admitted with fall and hip fracture and had a NSTEMI with peak Troponin 1.78.
Cont post op care as per orthopedics s/p left hip repair 05/25/25. PT/OT limited by orthostasis.
No recurrent CP after AM 8/5, EKG no change
He has chronic stable angina with CAD that is currently medical therapy
Imdur resumed with no additional chest pain
Cont Midodrine 2.5 mg TID for chronic orthostasis, that has limited medical management of CAD in the past. Reduce to BID given hypertension this am.
From a cardiac standpoint, patient does not have many options due to OM lesion being distal to JONO graft and ANAM grafts are prone to dissection and tortuosity and force will be required to deliver equipment which may increase this risk and if a
complication occurs there would be limited treatment options. The OM is not small but is also not comparable to the LAD in vascular territory or myocardium supplied.
-Outpatient dose of Ranexa 1000 mg BID continued
Cont medical regimen:
-Outpatient dose of Coreg 12.5 mg BID should be continued as BP tolerates
-Outpatient dose of Lasix 20 mg MWF should be continued
-Outpatient dose of spironolactone 12.5 mg daily should be continued
-Outpatient dose of aspirin 81 mg daily has been continued
-Outpatient dose of Plavix 75 mg daily has been continued
Discussed with primary service
Progress Note - Lens Generating Machine Tender
Subjective
Date of Service: May 30, 2025
Pt seen and examined. No complaints. No chest pain or shortness of breath.
Objective
Labs:
05/30/25 02:28
05/30/25 02:28
Labs
Hgb 8.4 g/dL (13.0-18.0) L 05/30/25 02:28
Hct 26.2 % (39.0-52.0) L 05/30/25 02:28
Plt Count 212 10^3/uL (130-400) 05/30/25 02:28
PT 15.0 Sec (11.4-14.6) H 05/25/25 18:39
INR 1.15 05/25/25 18:39
APTT Cancelled 05/28/25 14:02
Sodium 136 mmol/L (135-145) 05/30/25 02:28
Potassium 4.4 mmol/L (3.5-5.1) 05/30/25 02:28
BUN 19 mg/dl (9-20) 05/30/25 02:28
Creatinine 0.5 mg/dL (0.7-1.3) L 05/30/25 02:28
Glucose 151 mg/dl (70-99) H 05/30/25 02:28
Troponins
05/27/25 05/27/25 05/27/25
09:08 16:13 21:34
Troponin I 1.780 H* 0.932 H* D 0.593 H* D
Vital Signs and I&O:
Vital Signs
Temp Pulse Resp BP Pulse Ox
97.6 F 73 20 160/82 94
05/30/25 07:55 05/30/25 08:00 05/30/25 07:55 05/30/25 07:55 05/30/25 07:55
Vital Signs
Temp Pulse Resp BP Pulse Ox
97.6 F 73 20 160/82 94
05/30/25 07:55 05/30/25 08:00 05/30/25 07:55 05/30/25 07:55 05/30/25 07:55
Intake & Output
05/28/25 05/29/25 05/30/25 05/31/25
06:59 06:59 06:59 06:59
Intake Total 360 / 360
Output Total 1075 / 1075 1700 / 1700 600 / 600
Balance -1075 / -1075 -1340 / -1340 -600 / -600
Physical Exam
Physical Exam
General: No acute distress, AAOX3
Neck: Negative JVD
Heart: Regular, Negative S3 positive S1/S2, Negative S4, No murmur
Lungs: CTA b/l, negative wheezes/rales/rhonchi
Abd: Positive BS, NT/ND, neg rebound/rigidity/guarding
Ext: Negative cyanosis/clubbing/edema
Neuro: nonfocal
--- NOTE | 2025-05-30 09:58 | W.PN.HOSP.TC ---
Today's Communication/Plan
-
Discharge
Assessment / Plan
Assessment / Plan
Gen-AAOx3, NAD
HEENT-NC, AT, anicteric, clear oral mm
Neck-supple
CV-reg, no M, +S1/S2
Lungs-clear B/L
Abd-soft, NT, ND
Ext-no edema
Musculoskeletal-no cyanosis, clubbing
Skin-warm and dry
Neuro-grossly non-focal
Psych-calm, cooperative
Acute left Intertrochanteric Hip Fracture
Superior and Inferior right pubic Rami Fracture
Underwent successful left hip hemiarthroplasty, 05/25/2025.
--WBAT to LLE with walker. THPs x6-8 weeks. We appreciate the assistance of PT/OT.
-- Continue Plavix and ASA.
--Pain control prn. Ice and elevation for pain and edema control.
--Maintain surgical dressing until 2 weeks post-op. If removed at SNF, we will see the patient at 4 weeks post-op, otherwise follow up outpatient at 2 weeks post-op.
-DVT ppx - ASA, Plavix
NSTEMI -chest pain noted this morning, now resolved. EKG with normal sinus rhythm, right bundle branch block.
- Troponin trended down.
Off IV heparin and nitroglycerin.
-Continue aspirin, Plavix, GDMT
CAD/CABG 1998
Recent admission for NSTEMI treated medically
Essential Hypertension -hypotension resolved with midodrine 3 times daily.
Hyperlipidemia
-continue LABORER SYRUP MACHINE regimen:
Asa 81mg PO QD
Atorvastatin 80mg PO QD
Coreg 12.5mg PO BID
Imdur 30mg PO QD
Transdermal Nitro
Ranolazine 1G BID
Plavix
Severe COPD without exacerbation
Chronic Hypoxic Respiratory Insufficiency on 3L
-patient without active wheezing on exam.
-LABORER SYRUP MACHINE Prednisone 10mg PO QD - monitor BP closely post-op, may need stress dose steroids
-LABORER SYRUP MACHINE Azithromycin 250mg PO QD
-LABORER SYRUP MACHINE inhalers
-Mucinex BID
Hyponatremia
-Na 137 on admit LABORER SYRUP MACHINE Sodium tabs 1G QID
Recovered Ischemic Cardiomyopathy
-LABORER SYRUP MACHINE Lasix MWF and Spironolactone
PAD s/p AAA repair and bilateral femoral artery endarterectomy 07/2018
paroxysmal atrial Fibrillation s/p ablation
-per patient's choice, not on OAC
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
Anxiety/Depression
-LABORER SYRUP MACHINE Wellbutrin, Zoloft
DM 2 with hyperglycemia -hemoglobin A1c 8.0%. Glucose 173 this morning.
-hold pre-meal insulin for now (takes 3 units AC at home)
- Continue Lantus 7 units at bedtime.
GERD - LABORER SYRUP MACHINE PPI
Chronic urinary retention -with chronic Vogel catheter.
DNR
Dispo -medically stable for discharge back to [facility] today. Discussed with cardiology.
32 minutes spent in discharge process.
Anticipated Discharge: Today
Subjective/Interval History
-
Date of Service: May 30, 2025
Patient seen and examined. No complaints. Denies chest pain.
Objective Data
-
Labs:
Laboratory Results
05/30/25
02:28
WBC 8.9
Hgb 8.4 L
Hct 26.2 L
Plt Count 212
Sodium 136
Potassium 4.4
Chloride 105
Carbon Dioxide 25
BUN 19
Creatinine 0.5 L
Glucose 151 H
Calcium 9.3
Total Bilirubin 0.6
AST 19
ALT 11
Alkaline Phosphatase 74
Vital Signs:
Vital Signs
Temp Pulse Resp BP Pulse Ox
97.6 F 73 20 160/82 94
05/30/25 07:55 05/30/25 08:00 05/30/25 07:55 05/30/25 07:55 05/30/25 07:55
I&O
05/29/25 05/30/25 05/31/25
06:59 06:59 06:59
Intake Total 360 / 360
Output Total 1700 / 1700 600 / 600
Balance -1340 / -1340 -600 / -600
Review of Systems
-
History Source: Patient
All other systems: Reviewed and negative
--- NOTE | 2025-05-30 10:13 | W.DS.TRANS ---
DC Summary - Lidder
-
Discharge Instructions:
Sleep Apnea Risk Intermediate
Discharge Diagnosis/Procedures Acute left hip fracture, NSTEMI, hyponatremia
Diet Diabetic, Carb Controlled
Activity With assistance
Driving Restrictions No driving
Bathing Restrictions None
Instructions:
Stand-Alone Forms:
Changes to Home Medications: No
Discharge Medications:
DC Medications w/original date entered in [employer]
albuterol sulfate 90 mcg/actuation aerosol inhaler 2 puff inhalation R Q6HPRN PRN SOB 07/02/23
atorvastatin 80 mg tablet 80 mg PO DAILY High cholesterol 07/02/23
ipratropium 0.5 mg-albuterol 3 mg (2.5 mg base)/3 mL nebulization soln 3 ml inhalation R QIDPRN PRN SOB 07/02/23
pantoprazole 40 mg tablet,delayed release 40 mg PO DAILY Gastrointestinal issue 07/02/23
tamsulosin 0.4 mg capsule 0.4 mg PO DAILY BPH 07/02/23
prednisone 10 mg tablet 10 mg PO DAILY Anti-inflammatory #0 tabs 09/10/23
acetaminophen 325 mg tablet 650 mg PO Q4HPRN PRN mild pain/fever 12/08/24
bisacodyl 10 mg rectal suppository 10 mg OK [id number] PRN if mom ineffective 12/08/24
magnesium hydroxide 400 mg/5 mL oral suspension (Milk of Magnesia) 30 ml PO HSPRN PRN constipation 12/08/24
fluticasone propionate 50 mcg/actuation nasal spray,suspension 2 spray intranasal DAILYPRN PRN allergies 02/23/25
budesonide 0.5 mg/2 mL suspension for nebulization 0.5 mg inhalation R BID copd 04/13/25
insulin aspart U-100 100 unit/mL (3 mL) subcutaneous pen 3 unit (0.03 mL) SC AC Diabetes #0 mL 04/16/25
nitroglycerin 0.2 mg/hr transdermal 24 hour patch 0.2 mg transdermal DAILY #0 ea 04/16/25
ascorbic acid (vitamin C) 500 mg tablet (Vitamin C) 500 mg PO DAILY Supplement #0 tabs 04/18/25
aspirin 81 mg chewable tablet (Children's Aspirin) 81 mg PO DAILY Blood clot prevention/tx #1 tab 04/18/25
bupropion HCl 300 mg 24 hr tablet, extended release 300 mg PO DAILY Depression #0 tabs 04/18/25
dextromethorphan-guaifenesin 30 mg-600 mg tablet extended [id number] hr (Mucinex DM) 1 tab PO Q12H Congestion #0 tabs 04/18/25
furosemide 20 mg tablet 20 mg PO MOWEFR Fluid retention/Swelling #0 tabs 04/18/25
insulin glargine 100 unit/mL subcutaneous solution (Lantus U-100 Insulin) 7 unit (0.07 mL) SC HS Diabetes #0 mL 04/18/25
melatonin 3 mg tablet 3 mg PO HS Sleep #0 tabs 04/18/25
polyethylene glycol 3350 17 gram oral powder packet 17 g PO DAILY Constipation #0 ea 04/18/25
potassium chloride 20 mEq tablet,extended release(part/cryst) 20 meq PO DAILY Electrolyte Repletion #0 tabs 04/18/25
spironolactone 25 mg tablet 12.5 mg (1/2 x 25 mg) PO DAILY Heart disease/condition #0 tabs 04/18/25
sertraline 100 mg tablet 200 mg PO DAILY Mental Health/Anxiety 05/07/25
sodium chloride 1 gram tablet 1,000 mg PO QID Supplement 05/07/25
carvedilol 12.5 mg tablet 12.5 mg PO BID #60 tabs 05/10/25
isosorbide mononitrate 30 mg tablet,extended release 24 hr 30 mg PO DAILY #30 tabs 05/10/25
ranolazine 500 mg tablet,extended release,12 hr 1,000 mg (2 x 500 mg) PO BID #120 tabs 05/10/25
azithromycin 250 mg tablet 250 mg PO DAILY usp 05/24/25
clopidogrel 75 mg tablet 75 mg PO DAILY Blood Clot Prevention/Tx 05/25/25
lorazepam 0.5 mg tablet 0.5 mg PO TIDPRN PRN sleep/anxiety #6 tabs 05/30/25
midodrine 2.5 mg tablet 2.5 mg PO BID@0800,1800 #30 tabs 05/30/25
oxycodone 5 mg tablet 5 mg PO Q4HPRN PRN severe pain #10 tabs 05/30/25
Home Medication Changes
Pending Results: No
--- NOTE | 2025-05-30 10:43 | PTCARENOTE ---
Patient AAO, conversive and working with PT. Sat at the side of the bed 107/66-75, patient felt fine. Assisted to the chair and according to PT/OT was not as interactive, attempting to eat breakfast 96/63-77. Checked on the patient after 10 mins in
the chair, appeared lethargic, pale and stating he 'didn't feel right'. BP 79/53-78. PT/OT back in the room and assisted me getting him back in the bed. Dr. Cruz on the unit and updated. Trying to eat breakfast now, 116/65-75, states he's feeling
a little better but not 'even close' to 100%.
[2025-05-30 14:29] LABS: Glucose - Point of Care 179 mg/dl (70-99)
--- NOTE | 2025-05-30 14:49 | CM ---
Chart reviewed. 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 Plan is for the patient to return to [facility] when medically stable. CM to follow
[2025-05-30] MEDS: NOVOLOG FLEXPEN-LOW RESISTANCE 1 UNITS SC (15:25)
[2025-05-30 17:13] LABS: Glucose - Point of Care 300 mg/dl (70-99)
[2025-05-30] MEDS: NOVOLOG FLEXPEN-LOW RESISTANCE 4 UNITS SC (17:59)
[2025-05-30] MEDS: LOVENOX 40 MG SC (18:00)
--- NOTE | 2025-05-30 18:36 | PTCARENOTE ---
Stood the patient at the bedside while doing orthostatic VS. BP 88/73 while standing with the rolling walker, stating he could not stand much longer, felt dizzy and returned to bed. TT to Dr. Cruz with orthostatic VS result, midodrine increased
back to tid, no further orders and discharge was cancelled.
[2025-05-30] MEDS: ATIVAN 0.5 MG PO (20:09)
--- NOTE | 2025-05-30 20:27 | PTCARENOTE ---
Assumed care of the pt @ 1900. Pt was AAOx3 sitting up eating dinner. SR on the monitor denies cp. VSS Call kuhn within reach.
--- NOTE | 2025-05-30 20:28 | PTCARENOTE ---
Pt took off heart monitor and starting to undo hip abductor pillow when January and Jacob RN went in room to check on pt. Pt was agitated and stated ' I want to go home now!' Several attempts were made by nursing staff to calm him were unsuccessful. Pt
continued to refuse to have heart monitor placed back on. Pt was willing to take 0.5 Ativan PO but as of this time refusing all night time medications. Julissabouchra JOSUE notified up at bedside to eval. Bed alarm in use and call kuhn within reach. Will
reattempt to give night medications shortly.
[2025-05-30 22:10] LABS: Glucose - Point of Care 296 mg/dl (70-99)
[2025-05-30] MEDS: ROXICODONE 5 MG PO (22:13)
[2025-05-30] MEDS: MELATONIN 3 MG PO (22:14)
[2025-05-30] MEDS: LANTUS 0.07 UNITS SC (22:19)
[2025-05-31] VITALS (10 sets, daily range): BP systolic 75–128; BP diastolic 62–76; PULSE 71–88; BMI 25.6
[2025-05-31] MEDS: PULMICORT 0.5 MG INH (07:19)
[2025-05-31] MEDS: DUONEB 3 ML INH (07:19)
--- NOTE | 2025-05-31 08:38 | W.PN.HOSP.TC ---
Today's Communication/Plan
-
Possible discharge
Assessment / Plan
Assessment / Plan
Gen-AAOx3, NAD
HEENT-NC, AT, anicteric, clear oral mm
Neck-supple
CV-reg, no M, +S1/S2
Lungs-clear B/L
Abd-soft, NT, ND
Ext-no edema
Musculoskeletal-no cyanosis, clubbing
Skin-warm and dry
Neuro-grossly non-focal
Psych-calm, cooperative
Acute left Intertrochanteric Hip Fracture
Superior and Inferior right pubic Rami Fracture
Underwent successful left hip hemiarthroplasty, 05/25/2025.
--WBAT to LLE with walker. THPs x6-8 weeks. We appreciate the assistance of PT/OT.
-- Continue Plavix and ASA.
--Pain control prn. Ice and elevation for pain and edema control.
--Maintain surgical dressing until 2 weeks post-op. If removed at SNF, we will see the patient at 4 weeks post-op, otherwise follow up outpatient at 2 weeks post-op.
-DVT ppx - ASA, Plavix
NSTEMI -chest pain noted this morning, now resolved. EKG with normal sinus rhythm, right bundle branch block.
- Troponin trended down.
Off IV heparin and nitroglycerin.
-Continue aspirin, Plavix, GDMT
CAD/CABG 1998
Recent admission for NSTEMI treated medically
Essential Hypertension -will have to tolerate some degree of supine hypertension given his requirement for midodrine to treat orthostatic hypotension. Teds stockings ordered. Continue midodrine 3 times daily.
Hyperlipidemia
-continue NEONATAL ICU COORDINATOR regimen:
Asa 81mg PO QD
Atorvastatin 80mg PO QD
Coreg 12.5mg PO BID
Imdur 30mg PO QD
Transdermal Nitro
Ranolazine 1G BID
Plavix
Severe COPD without exacerbation
Chronic Hypoxic Respiratory Insufficiency on 3L
-patient without active wheezing on exam.
-NEONATAL ICU COORDINATOR Prednisone 10mg PO QD - monitor BP closely post-op, may need stress dose steroids
-NEONATAL ICU COORDINATOR Azithromycin 250mg PO QD
-NEONATAL ICU COORDINATOR inhalers
-Mucinex BID
Hyponatremia
-Na 137 on admit NEONATAL ICU COORDINATOR Sodium tabs 1G QID
Recovered Ischemic Cardiomyopathy
-NEONATAL ICU COORDINATOR Lasix MWF and Spironolactone
PAD s/p AAA repair and bilateral femoral artery endarterectomy 07/2018
paroxysmal atrial Fibrillation s/p ablation
-per patient's choice, not on OAC
BPH - NEONATAL ICU COORDINATOR Flomax
Anxiety/Depression
-NEONATAL ICU COORDINATOR Wellbutrin, Zoloft
DM 2 with hyperglycemia -hemoglobin A1c 8.0%. Glucose 173 this morning.
-hold pre-meal insulin for now (takes 3 units AC at home)
- Continue Lantus 7 units at bedtime.
GERD - NEONATAL ICU COORDINATOR PPI
Chronic urinary retention -with chronic Vogel catheter.
DNR
Dispo -medically stable for discharge back to [facility] today as long as blood pressure does not drop significantly with sitting or standing. Discussed with nursing. Close outpatient follow-up.
32 minutes spent in discharge process.
Anticipated Discharge: Today
Subjective/Interval History
-
Date of Service: May 31, 2025
Patient seen and examined. No complaints.
Objective Data
-
Vital Signs:
Vital Signs
Temp Pulse Resp BP Pulse Ox
97.9 F 78 14 119/64 95
05/31/25 04:01 05/31/25 07:21 05/31/25 07:21 05/31/25 04:01 05/31/25 07:21
I&O
05/30/25 05/31/25 06/01/25
06:59 06:59 06:59
Intake Total 480 / 480
Output Total 600 / 600 2300 / 2300
Balance -600 / -600 -1820 / -1820
Review of Systems
-
History Source: Patient
All other systems: Reviewed and negative
--- NOTE | 2025-05-31 08:45 | W.DS.TRANS ---
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
-
Discharge Instructions:
Sleep Apnea Risk Intermediate
Discharge Diagnosis/Procedures Acute left hip fracture, NSTEMI, hyponatremia
Diet Diabetic, Carb Controlled
Activity With assistance
Driving Restrictions No driving
Bathing Restrictions None
Instructions:
Stand-Alone Forms:
Changes to Home Medications: No
Discharge Medications:
DC Medications w/original date entered in [employer]
albuterol sulfate 90 mcg/actuation aerosol inhaler 2 puff inhalation R Q6HPRN PRN SOB 07/02/23
atorvastatin 80 mg tablet 80 mg PO DAILY High cholesterol 07/02/23
ipratropium 0.5 mg-albuterol 3 mg (2.5 mg base)/3 mL nebulization soln 3 ml inhalation R QIDPRN PRN SOB 07/02/23
pantoprazole 40 mg tablet,delayed release 40 mg PO DAILY Gastrointestinal issue 07/02/23
tamsulosin 0.4 mg capsule 0.4 mg PO DAILY BPH 07/02/23
prednisone 10 mg tablet 10 mg PO DAILY Anti-inflammatory #0 tabs 09/10/23
acetaminophen 325 mg tablet 650 mg PO Q4HPRN PRN mild pain/fever 12/08/24
bisacodyl 10 mg rectal suppository 10 mg WI [id number] PRN if mom ineffective 12/08/24
magnesium hydroxide 400 mg/5 mL oral suspension (Milk of Magnesia) 30 ml PO HSPRN PRN constipation 12/08/24
fluticasone propionate 50 mcg/actuation nasal spray,suspension 2 spray intranasal DAILYPRN PRN allergies 02/23/25
budesonide 0.5 mg/2 mL suspension for nebulization 0.5 mg inhalation R BID copd 04/13/25
insulin aspart U-100 100 unit/mL (3 mL) subcutaneous pen 3 unit (0.03 mL) SC AC Diabetes #0 mL 04/16/25
nitroglycerin 0.2 mg/hr transdermal 24 hour patch 0.2 mg transdermal DAILY #0 ea 04/16/25
ascorbic acid (vitamin C) 500 mg tablet (Vitamin C) 500 mg PO DAILY Supplement #0 tabs 04/18/25
aspirin 81 mg chewable tablet (Children's Aspirin) 81 mg PO DAILY Blood clot prevention/tx #1 tab 04/18/25
bupropion HCl 300 mg 24 hr tablet, extended release 300 mg PO DAILY Depression #0 tabs 04/18/25
dextromethorphan-guaifenesin 30 mg-600 mg tablet extended [id number] hr (Mucinex DM) 1 tab PO Q12H Congestion #0 tabs 04/18/25
furosemide 20 mg tablet 20 mg PO MOWEFR Fluid retention/Swelling #0 tabs 04/18/25
insulin glargine 100 unit/mL subcutaneous solution (Lantus U-100 Insulin) 7 unit (0.07 mL) SC HS Diabetes #0 mL 04/18/25
melatonin 3 mg tablet 3 mg PO HS Sleep #0 tabs 04/18/25
polyethylene glycol 3350 17 gram oral powder packet 17 g PO DAILY Constipation #0 ea 04/18/25
potassium chloride 20 mEq tablet,extended release(part/cryst) 20 meq PO DAILY Electrolyte Repletion #0 tabs 04/18/25
spironolactone 25 mg tablet 12.5 mg (1/2 x 25 mg) PO DAILY Heart disease/condition #0 tabs 04/18/25
sertraline 100 mg tablet 200 mg PO DAILY Mental Health/Anxiety 05/07/25
sodium chloride 1 gram tablet 1,000 mg PO QID Supplement 05/07/25
carvedilol 12.5 mg tablet 12.5 mg PO BID #60 tabs 05/10/25
isosorbide mononitrate 30 mg tablet,extended release 24 hr 30 mg PO DAILY #30 tabs 05/10/25
ranolazine 500 mg tablet,extended release,12 hr 1,000 mg (2 x 500 mg) PO BID #120 tabs 05/10/25
azithromycin 250 mg tablet 250 mg PO DAILY fci 05/24/25
clopidogrel 75 mg tablet 75 mg PO DAILY Blood Clot Prevention/Tx 05/25/25
lorazepam 0.5 mg tablet 0.5 mg PO TIDPRN PRN sleep/anxiety #6 tabs 05/30/25
oxycodone 5 mg tablet 5 mg PO Q4HPRN PRN severe pain #10 tabs 05/30/25
midodrine 2.5 mg tablet 2.5 mg PO TID@0800,1300,1800 #0 tabs 05/31/25
Home Medication Changes
Pending Results: No
[2025-05-31 09:54] LABS: Glucose - Point of Care 154 mg/dl (70-99)
[2025-05-31] MEDS: SODIUM CHLORIDE 1 GRAM PO (09:54)
[2025-05-31] MEDS: RANEXA EXTENDED RELEASE 1000 MG PO (09:55)
[2025-05-31] MEDS: ZITHROMAX 250 MG PO (09:55)
[2025-05-31] MEDS: IMDUR (EXTENDED RELEASE) 30 MG PO (09:55)
[2025-05-31] MEDS: ALDACTONE 12.5 MG PO (09:55)
[2025-05-31] MEDS: MUCINEX 1200 MG PO (09:56)
[2025-05-31] MEDS: LIPITOR 80 MG PO (09:57)
[2025-05-31] MEDS: WELLBUTRIN XL (24 hour extended release) 300 MG PO (09:57)
[2025-05-31] MEDS: COREG 12.5 MG PO (09:57)
[2025-05-31] MEDS: PROTONIX 40 MG PO (09:57)
[2025-05-31] MEDS: PLAVIX 75 MG PO (09:58)
[2025-05-31] MEDS: ZOLOFT 200 MG PO (09:58)
[2025-05-31] MEDS: FLOMAX 0.4 MG PO (09:58)
[2025-05-31] MEDS: TYLENOL 1000 MG PO (09:58)
[2025-05-31] MEDS: LOW STRENGTH ASPIRIN 81 MG PO (09:59)
[2025-05-31] MEDS: COLACE 100 MG PO (09:59)
[2025-05-31] MEDS: KCL 20 MEQ PO (09:59)
[2025-05-31] MEDS: DELTASONE 10 MG PO (09:59)
[2025-05-31] MEDS: NOVOLOG FLEXPEN-LOW RESISTANCE 1 UNITS SC (10:08)
[2025-05-31] MEDS: MIRALAX PO (10:08)
[2025-05-31 11:45] LABS: Glucose - Point of Care 207 mg/dl (70-99)
== END 2025-05-31 12:15 | DRG 956 ==
LOC: IVU 13:08
PROVIDERS: Internal Medicine; Nurse Practitioner Family; Physician Assistant; ADMITTING PHYSICIAN Student in an Organized Health Care Education/Training Program; ATTENDING PHYSICIAN Hospitalist; CONSULT PHYSICIAN Internal Medicine Cardiovascular Disease; CONSULT PHYSICIAN Orthopaedic Surgery; EMERGENCY PHYSICIAN Emergency Medicine; FAMILY PHYSICIAN Student in an Organized Health Care Education/Training Program; OTHER PHYSICIAN Internal Medicine Critical Care Medicine
PROC: 0SRS039 Replacement of Left Hip Joint, Femoral Surface with Ceramic Synthetic Substitute, Cemented, Open Approach (ICD-10-PCS; 2025-05-25)
DX: S72.142A Displaced intertrochanteric fracture of left femur, initial encounter for closed fracture (principal); S32.591A Other specified fracture of right pubis, initial encounter for closed fracture; I21.4 Non-ST elevation (NSTEMI) myocardial infarction; E87.1 Hypo-osmolality and hyponatremia; I50.32 Chronic diastolic (congestive) heart failure; I48.92 Unspecified atrial flutter; D62 Acute posthemorrhagic anemia; J96.11 Chronic respiratory failure with hypoxia; Z66 Do not resuscitate; F41.9 Anxiety disorder, unspecified; F32.A Depression, unspecified; K21.9 Gastro-esophageal reflux disease without esophagitis; I25.10 Atherosclerotic heart disease of native coronary artery without angina pectoris; I25.5 Ischemic cardiomyopathy; E11.51 Type 2 diabetes mellitus with diabetic peripheral angiopathy without gangrene; I95.1 Orthostatic hypotension; I48.0 Paroxysmal atrial fibrillation; I11.0 Hypertensive heart disease with heart failure; E78.00 Pure hypercholesterolemia, unspecified; J44.9 Chronic obstructive pulmonary disease, unspecified; W06.XXXA Fall from bed, initial encounter; E11.65 Type 2 diabetes mellitus with hyperglycemia; N40.1 Benign prostatic hyperplasia with lower urinary tract symptoms; R33.8 Other retention of urine; E66.3 Overweight; K58.9 Irritable bowel syndrome, unspecified; I25.2 Old myocardial infarction; Z68.25 Body mass index [BMI] 25.0-25.9, adult; Z79.01 Long term (current) use of anticoagulants; Z79.02 Long term (current) use of antithrombotics/antiplatelets; Z79.4 Long term (current) use of insulin; Z79.52 Long term (current) use of systemic steroids; Z79.82 Long term (current) use of aspirin; Z79.899 Other long term (current) drug therapy; Z87.11 Personal history of peptic ulcer disease; Z87.891 Personal history of nicotine dependence; Z95.1 Presence of aortocoronary bypass graft; Z99.81 Dependence on supplemental oxygen; Z99.3 Dependence on wheelchair; Z95.5 Presence of coronary angioplasty implant and graft
CPT/HCPCS: 70450; 71045; 71275; 72192; 73502; 73552; 73560; 80048; 80053; 82962; 83036; 83735; 83880; 84100; 84484; 85014; 85018; 85025; 85027; 85610; 85730; 86850; 86900; 86901; 87070; 93005; 94640; 97110; 97163; 97167; 97530; 97535; 99285; C1713; C1776; P9045; Q9967

== ENCOUNTER → 2025-06-07 10:39 | Outpatient (REF) | payer OTHER, MEDICARE, MEDICAID, SELFPAY ==
[2025-06-07 12:13] LABS: Hematocrit 29.1 % (39.0-52.0); Hemoglobin 8.7 g/dL (13.0-18.0); Mean Corp Hgb Conc. 29.9 g/dL (33.0-37.0); Mean Corpuscular Volume 94.5 fL (80.0-94.0); Nucleated Red Blood Cells % 0 % (-); Platelet Count 363 10^3/uL (130-400); Red Cell Dist. Width 14.5 % (11.5-14.5)
== END ==
LOC: OLABN 10:39
PROVIDERS: ATTENDING PHYSICIAN Student in an Organized Health Care Education/Training Program
DX: M62.81 Muscle weakness (generalized) (principal); I25.10 Atherosclerotic heart disease of native coronary artery without angina pectoris; I10 Essential (primary) hypertension; E78.5 Hyperlipidemia, unspecified
CPT/HCPCS: 36415; 85025

== ENCOUNTER → 2025-06-08 09:13 | Outpatient (REF) | payer OTHER, MEDICARE, MEDICAID, SELFPAY ==
[2025-06-08 09:44] LABS: Reticulocyte Count 3.3 % (0.4-2.8)
[2025-06-08 09:58] LABS: ALT (SGPT) 13 U/L (0-50); AST (SGOT) 15 U/L (17-59); Albumin 3.5 g/dl (3.5-5.0); Alkaline Phosphatase 89 U/L (38-126); Blood Urea Nitrogen 17 mg/dl (9-20); Calcium 8.8 mg/dl (8.4-10.2); Carbon Dioxide 31 mmol/L (22-30); Chloride 102 mmol/L (98-107); Glucose 130 mg/dl (70-99); Potassium 4.2 mmol/L (3.5-5.1); Sodium 139 mmol/L (135-145); Total Protein 5.9 g/dl (6.3-8.2); eGFR > 60.00
[2025-06-08 10:00] LABS: Iron 37 ug/dl (49-181)
[2025-06-08 10:09] LABS: Total Iron Binding Capacity 310 ug/dl (261-462)
[2025-06-08 10:27] LABS: Ferritin 38.7 ng/ml (17.9-464.0)
== END ==
LOC: OLABN 09:13
PROVIDERS: ATTENDING PHYSICIAN Student in an Organized Health Care Education/Training Program
DX: I25.10 Atherosclerotic heart disease of native coronary artery without angina pectoris (principal); D50.9 Iron deficiency anemia, unspecified
CPT/HCPCS: 36415; 80053; 82728; 83540; 83550; 85045

== ENCOUNTER 2025-06-09 12:44 | Inpatient (IN) | payer MEDICARE, MEDICAID, SELFPAY ==
[2025-06-09] VITALS (14 sets, daily range): BP systolic 95–187; BP diastolic 65–101; BMI 24.1
--- NOTE | 2025-06-09 07:54 | ED.GENMED ---
History of Present Illness
General
Chief Complaint: Chest Pain
Source: patient
Exam Limitations: none
Time Seen by Provider: 06/09/25 07:39
History of Present Illness
History of Present Illness:
70-year-old male complaining of upper anterior chest pain. Not sure if it woke him up or started shortly after awakening. Started about an hour ago. Described as a dull feeling. Minimal at this time. Some radiation to the arm no shortness of
breath pleuritic pain back pain nausea diaphoresis or other complaints. Recent hip fracture. Shortness of breath is at baseline
Past History
Past History
ED Past Medical History: Arrthythmia (Atrial fib), CAD, CHF, COPD, GERD, HTN, Hypercholesterolemia, IDDM, NM (Non-STEMI December 2019), Valvular disease and Other (Back pain, Headaches, Sleep apnea, IBS, Pancreatitis, Ulcers, Gastritis, Anemia, )
ED Past Surgical History: Cardiac (CABG, PTCA with stent), Cholecystectomy (January 2016), Orthopedic (Right wrist surgery), Tonsilectomy and Other (hernia repair, endovascular AAA with bilateral femoral endarterectomy and profundoplasty 07/2018)
Social History
Tobacco: Former smoker
Alcohol: None
Drug: None
Personal: Single
Living: alone
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
Family History
Family History: Hypertension
Review of Systems
Review of Systems
All Other Systems: Not applicable
Constitutional: Denies fever or chills
Respiratory: Denies trouble breathing
Cardiac: Denies syncope
Phy Exam
Physical Exam
Physical Exam:
GENERAL: Alert and oriented. Old for stated age
EYE: Orbits normal.
NECK: Supple, no significant adenopathy.
ENT: Pharynx without erythema
CARDIAC: Regular rate and rhythm without any obvious murmurs.
LUNGS: Clear breath sounds,normal
ABDOMEN: Soft, without focal tenderness or distention
NEUROLOGICAL: Alert and oriented , grossly non-focal
SKIN: Warm and dry, areas of superficial ecchymosis to the left and right arm. Bandages placed on the left arm. Dressing placed over attempted IV sticks
MUSCULOSKELETAL: Dressing to the left lateral hip. No signs of cellulitis. No unusual swelling or cord
PSYCH: Normal and appropriate interaction.
Scores
Heart Score for Chest Pain Patients
STEMI patient?: No
History: Moderately Suspicious
ECG: Nonspecific Repolarization
Age: >/= 65 years
Risk Factors: >/= 3 Risk Factors or History of CAD
Troponin: >1 - <3 x Normal Limit
Heart Score for Chest Pain Patients: 7
Heart Score Risk: 72.7 % MACE over next 6 weeks
Course
Orders/Labs/Results
Orders:
Orders
06/09/25
Electrocardiogram (*1) Stat
Comment: DONE
06/09/25 07:40
EKG [Electrocardiogram (*1)] Urgent
Reason for Study: Chest Pain
06/09/25 07:53
IV Insert/Care/Rem.- Treatment PRN
Pulse Ox/cont/shift [RESP] Stat
Quantity: 1
06/09/25 07:54
CT Chest PE Study Urgent
Comment:
Reason For Exam: Chest pain. Recent hip fracture
Cardiac Monitoring- Treatment ONCE
06/09/25 07:55
EKG- Treatment ONCE
06/09/25 07:56
Basic Metabolic Panel Urgent
Complete Blood Count/With Diff Urgent
Troponin I Urgent
06/09/25 09:20
EKG [Electrocardiogram (*1)] Urgent
Reason for Study: Chest Pain
EKG- Treatment ONCE
06/09/25 10:25
Electrocardiogram (*1) Stat
Reason for Study: Other
Other Reason for Exam: chest pain
EKG- Treatment ONCE
06/09/25 11:09
Troponin I Urgent
06/09/25 12:26
Admit/Transfer Patient As Directed
Co-Sign Provider:
Level of Care: Inpatient admission
Assign to:: Telemetry
Physician / Group: dinesh whelan
Diagnosis: chest pain
Reason for Telemetry: Chest Pain syndromes
Date to Stop Telemetry: 06/11/25
Time to Stop Telemetry: 11:00
Reason for Hospitalization: chest pain
Expected length of stay greater than two midnights?: Yes
ELOS- Estimated Length of Stay in days: 3
I certify the patient meets the requirements for IP care: Yes
PRN Pain Medication Management As Directed
May give lesser potent ordered pain med per pt: Yes
preference::
Protocol:: Medication orders for pain may be administered in a
manner that supports deferring to patient preference
when the pt is:
- Requesting an ordered lesser potent pain medication.
Least to most potent pain medications are defined
as: acetaminophen < NSAID < tramadol < opioids
(morphine, oxycodone, hydromorphone).
- Requesting a lesser dose of the same medication IF
ORDERED.
- Requesting a less intrusive route of administration
if both routes are prescribed by the provider (PO <
IV).
06/09/25 12:31
Code Status As Directed
Resuscitation Status: Do not resuscitate
Reached after discussion with pt or family/Healthcare POA: Yes
DNR Bracelet Application ONCE
06/11/25 11:00
DC Protocol for Telemetry ONCE
Abnormal Lab Results
06/09/25 06/09/25
07:56 11:09
RBC 3.08 L 10^6/uL
(4.70-6.10)
Hgb 8.6 L g/dL
(13.0-18.0)
Hct 28.8 L %
(39.0-52.0)
MCHC 29.9 L g/dL
(33.0-37.0)
RDW 14.6 H %
(11.5-14.5)
Abs Immat Gran (auto) 0.1 H 10^3/uL
(0-0.05)
Absolute Neuts (auto) 7.0 H 10^3/uL
(1.4-6.5)
Absolute Lymphs (auto) 0.6 L 10^3/uL
(1.2-3.4)
Absolute Monos (auto) 0.8 H 10^3/uL
(0.1-0.6)
Immature Gran % 0.9 H %
(0-0.5)
Neutrophils % 80.4 H %
(42.2-75.2)
Lymphocytes % 6.8 L %
(20.5-51.1)
Carbon Dioxide 31 H mmol/L
(22-30)
Glucose 134 H mg/dl
(70-99)
Troponin I 0.040 H* D ng/ml
06/09/25 07:56
06/09/25 07:56
Vital Signs
Initial and Last Documented VS:
Initial Vital Signs
Temp Pulse Resp BP Pulse Ox
98.3 F 92 20 124/69 98
06/09/25 07:42 06/09/25 07:42 06/09/25 07:42 06/09/25 07:42 06/09/25 07:42
Last Documented Vital Signs
Temp Pulse Resp BP Pulse Ox
98.3 F 89 24 139/90 100
06/09/25 07:42 06/09/25 11:15 06/09/25 11:15 06/09/25 11:00 06/09/25 11:15
MDM/Problems Addressed
Differential Diagnosis Includes:
Patient with nonexertional vague upper chest pain. Recent admission for non-STEMI NM. EKG with no acute changes. Patient is nontoxic. Chief considerations would be cardiac or PE. Given the higher risk with recent hip surgery feel D-dimer as a
screening is not appropriate. Will await the CT scan.
*Radiology
Radiology exam reviewed: radiology read reviewed (No acute pulmonary emboli)
*Pulse Oximetry
SaO2: 98
Nasal Cannula flow liters per minute: 3
Patient hypoxic: no
*EKG
Interpreted by ED Provider?: Yes
Interpretation: abnormal
Comparison EKG: no changes
Heart Rate: 93
Rate: normal
Rhythm: sinus
[place]: normal axis
Interval: normal interval
QRS Pattern: right bundle branch block
Ischemia: non-specific ST changes
*Hedge Fund Trader Interpretation
Rate: normal
Interpretation: normal
Heart Rate: 90
Rhythm: sinus
*Critical Care Note
Total Time (30-74mins, 75-104mins- exclusive of procedures): Not Applicable
Data Reviewed
Review of Other/Old Records Reveals: Labs, Records, Radiology Studies, Operative Reports and Discharge Summary
Update Note
Update Note:
Patient had a recurring episode of chest pain. Repeat EKG is stable. However with recurring episodes slightly trending upward troponin and recent non-STEMI patient warrants inpatient management
ED Attending Note
-
Portions of this chart may have been created with voice recognition software.� Occasional wrong word or��sound alike� substitutions may have occurred due to the inherent limitations of voice recognition software.
Discharge Plan
Departure
Patient Disposition: Admit
Date of Disposition: 06/09/25
Time of Disposition: 12:04
Presentation/result/management discussed w/ accepting MD/DO: Hospitalist
Discharge Problem:
Recurring chest pain, Recent non-STEMI NM, Recent fracture of hip, Chronic anemia, Pulmonary nodules
Interventions
Interventions:
*Risk Screen - Suicide Last Done: 06/09/25 07:42
*General Assessment Last Done: 06/09/25 07:57
*Neglect/Abuse Screening Last Done: 06/09/25 07:42
*ED- Fall Risk Assessment Last Done: 06/09/25 07:57
*ED COVID-19 Vaccine History Last Done: 06/09/25 07:42
ED- Cardiac Assessment Last Done: 06/09/25 07:57
[2025-06-09 08:10] LABS: Hematocrit 28.8 % (39.0-52.0); Hemoglobin 8.6 g/dL (13.0-18.0); Mean Corp Hgb Conc. 29.9 g/dL (33.0-37.0); Mean Corpuscular Volume 93.5 fL (80.0-94.0); Nucleated Red Blood Cells % 0 % (-); Platelet Count 320 10^3/uL (130-400); Red Cell Dist. Width 14.6 % (11.5-14.5)
[2025-06-09 08:25] LABS: Blood Urea Nitrogen 17 mg/dl (9-20); Calcium 8.6 mg/dl (8.4-10.2); Carbon Dioxide 31 mmol/L (22-30); Chloride 103 mmol/L (98-107); Estimated Creatinine Clearance 100 ml/min; Glucose 134 mg/dl (70-99); Potassium 4.0 mmol/L (3.5-5.1); Sodium 140 mmol/L (135-145); eGFR > 60.00
[2025-06-09 08:40] LABS: Troponin I 0.030 ng/ml
[2025-06-09 11:54] LABS: Troponin I 0.040 ng/ml
--- NOTE | 2025-06-09 12:05 | HPS.HSE ---
Family Physician
-
Family Physician: Tab Woo
Chief Complaint
-
Chest pain
History of Present Illness
70-year-old male with past medical history for A-fib, coronary artery disease, CHF, COPD, hypertension, hyperlipidemia, IDDM, [place], valvular disease, IBS, pancreatitis, sleep apnea presented with complaining of upper anterior chest pain radiating to
b/l arms since he woke up this morning. denied sob. he uses 3l of oxygen baseline for COPD. denied ALEXANDER, dizzy or syncope. denied fever, chills, cough, congestion. denied abdominal pain,n,v,d.denied dysuria or hematuria.
he had left hip replacement two weeks ago.
Medical History
Past Medical History
Past Medical History: Reports Other
Additional Past Medical History:
Coronary artery disease
Right carotid stenosis
Abdominal aortic aneurysm
Duodenal ulcer
Type 2 diabetes
COPD
GERD
Hyperlipidemia
Hypertension
Atrial flutter
COVID
Past Surgical History: Reports Other
Additional Past Surgical History:
AAA repair
Femoral endarterectomy
Lap duncan
Coronary artery bypass graft graft
A flutter ablation
Social History
Tobacco: Former Smoker
Alcohol: Former
Drug: None
Living: Care Home
Family History
Family History: Not pertinent
Allergies / Home Medications
Allergies reflects when Allergies were last updated in [facility].
Home Medications with original date entered in [facility]
Allergy/Medication List:
Allergies
Allergy/AdvReac Type Severity Reaction Status Date / Time
lisinopril Allergy throat Verified 06/09/25 07:49
closes
Home Medications
albuterol sulfate 90 mcg/actuation aerosol inhaler 2 puff inhalation R Q6HPRN PRN SOB 07/02/23
atorvastatin 80 mg tablet 80 mg PO DAILY High cholesterol 07/02/23
ipratropium 0.5 mg-albuterol 3 mg (2.5 mg base)/3 mL nebulization soln 3 ml inhalation R QIDPRN PRN SOB 07/02/23
pantoprazole 40 mg tablet,delayed release 40 mg PO DAILY Gastrointestinal issue 07/02/23
tamsulosin 0.4 mg capsule 0.4 mg PO DAILY BPH 07/02/23
prednisone 10 mg tablet 10 mg PO DAILY Anti-inflammatory #0 tabs 09/10/23
acetaminophen 325 mg tablet 650 mg PO Q4HPRN PRN mild pain/fever 12/08/24
bisacodyl 10 mg rectal suppository 10 mg ND [id number] PRN if mom ineffective 12/08/24
magnesium hydroxide 400 mg/5 mL oral suspension (Milk of Magnesia) 30 ml PO HSPRN PRN constipation 12/08/24
fluticasone propionate 50 mcg/actuation nasal spray,suspension 2 spray intranasal DAILYPRN PRN allergies 02/23/25
budesonide 0.5 mg/2 mL suspension for nebulization 0.5 mg inhalation R BID copd 04/13/25
insulin aspart U-100 100 unit/mL (3 mL) subcutaneous pen 3 unit (0.03 mL) SC AC Diabetes #0 mL 04/16/25
nitroglycerin 0.2 mg/hr transdermal 24 hour patch 0.2 mg transdermal DAILY #0 ea 04/16/25
ascorbic acid (vitamin C) 500 mg tablet (Vitamin C) 500 mg PO DAILY Supplement #0 tabs 04/18/25
aspirin 81 mg chewable tablet (Children's Aspirin) 81 mg PO DAILY Blood clot prevention/tx #1 tab 04/18/25
bupropion HCl 300 mg 24 hr tablet, extended release 300 mg PO DAILY Depression #0 tabs 04/18/25
dextromethorphan-guaifenesin 30 mg-600 mg tablet extended [id number] hr (Mucinex DM) 1 tab PO Q12H Congestion #0 tabs 04/18/25
furosemide 20 mg tablet 20 mg PO MOWEFR Fluid retention/Swelling #0 tabs 04/18/25
insulin glargine 100 unit/mL subcutaneous solution (Lantus U-100 Insulin) 7 unit (0.07 mL) SC HS Diabetes #0 mL 04/18/25
melatonin 3 mg tablet 3 mg PO HS Sleep #0 tabs 04/18/25
polyethylene glycol 3350 17 gram oral powder packet 17 g PO DAILY Constipation #0 ea 04/18/25
potassium chloride 20 mEq tablet,extended release(part/cryst) 20 meq PO DAILY Electrolyte Repletion #0 tabs 04/18/25
spironolactone 25 mg tablet 12.5 mg (1/2 x 25 mg) PO DAILY Heart disease/condition #0 tabs 04/18/25
sertraline 100 mg tablet 200 mg PO DAILY Mental Health/Anxiety 05/07/25
sodium chloride 1 gram tablet 1,000 mg PO QID Supplement 05/07/25
carvedilol 12.5 mg tablet 12.5 mg PO BID #60 tabs 05/10/25
isosorbide mononitrate 30 mg tablet,extended release 24 hr 30 mg PO DAILY #30 tabs 05/10/25
ranolazine 500 mg tablet,extended release,12 hr 1,000 mg (2 x 500 mg) PO BID #120 tabs 05/10/25
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
clopidogrel 75 mg tablet 75 mg PO DAILY Blood Clot Prevention/Tx 05/25/25
lorazepam 0.5 mg tablet 0.5 mg PO TIDPRN PRN sleep/anxiety #6 tabs 05/30/25
oxycodone 5 mg tablet 5 mg PO Q4HPRN PRN severe pain #10 tabs 05/30/25
midodrine 2.5 mg tablet 2.5 mg PO TID@0800,1300,1800 #0 tabs 05/31/25
aripiprazole 5 mg tablet 5 mg PO DAILY 06/09/25
ascorbic acid (vitamin C) 500 mg tablet (Vitamin C) 500 mg PO DAILY 06/09/25
ferrous sulfate 325 mg (65 mg iron) tablet 325 mg PO DAILY 06/09/25
sennosides 8.6 mg tablet (senna) 17.2 mg PO DAILY 06/09/25
Review of Systems
-
Constitutional: Reports No Symptoms
EENT: Reports No Symptoms
Respiratory: Reports No Symptoms
Cardiac: Reports Chest Pain
Abdomen/GI: Reports No Symptoms
: Reports No Symptoms
Musculoskeletal: Reports No Symptoms
Skin: Reports No Symptoms
Neurological: Reports No Symptoms
Endocrine: Reports No Symptoms
Hematologic/Lymphatic: Reports No Symptoms
Psych: Reports No Symptoms
Physical Exam
Vital Signs
Vital Signs
Temp Pulse Resp BP Pulse Ox
98.3 F 89 24 139/90 100
06/09/25 07:42 06/09/25 11:15 06/09/25 11:15 06/09/25 11:00 06/09/25 11:15
Physical Exam
General: Well Developed, Well Nourished and No Apparent Distress
HEENT: NormoCephalic, Moist mucous membranes and Atraumatic
Respiratory: Clear
Cardiac: S1/S2 and Regular Rhythm; No Murmur or Rub
GI: Soft, Non Tender, Non Distended and Normal Bowel Sounds; No Organomegaly
Rectal: Deferred by Provider
Musculoskeletal: No Clubbing, No Cyanosis and No Edema
Skin: No Rash
Neuro: AO x 3 and Nonfocal/grossly intact
Psych: Calm
Laboratory Results
-
06/09/25 07:56
06/09/25 07:56
Laboratory Results
Troponin I 0.040 ng/ml H* D 06/09/25 11:09
Data Reviewed
-
CT Scan: Report Reviewed by me
Lab Data: Labs Reviewed by me
Impression/Plan
-
# Chest pain rule out NSTEMI
-Troponin 0.040
-Chest CT with impression of no acute disease of the chest. No evidence of pulmonary embolus nor aortic dissection.ight upper lobe and lower lobe pulmonary nodules. Stable right upper lobe nodule from 05/30/2025. Likely benign. Follow-up
recommended.New right lower lobe pulmonary nodules.. Considering the acute development, these are consistent with inflammatory or infectious etiology.
-continue to trend trop
-asa continued
-cardiology consulted
# Anemia of chronic disease
- Hemoglobin stable at 8.6, no active bleeding
- Continue to monitor
#CAD/CABG 1998
#Essential Hypertension
#hypotension
-Imdur, midodrine continued
#Hyperlipidemia
-Asa 81mg PO QD
-Atorvastatin 80mg PO QD
-Coreg 12.5mg PO BID
-Imdur 30mg PO QD
-Ranolazine 1G BID
-Plavix
#Severe COPD without exacerbation
#Chronic Hypoxic Respiratory Insufficiency on 3L
-patient without active wheezing on exam.
-inhalers from home continued
-prednisone,zithromax continued
# Ischemic Cardiomyopathy
-BUS ESCORT Lasix MWF and Spironolactone
#PAD s/p AAA repair and bilateral femoral artery endarterectomy 07/2018
#paroxysmal atrial Fibrillation s/p ablation
-coreg continued
#BPH - BUS ESCORT Flomax
#Anxiety/Depression
-BUS ESCORT Wellbutrin, Zoloft
#DM 2 with hyperglycemia
-3units aspart with meals held
-sliding scale
- Continue Lantus 7 units at bedtime.
-CHO diet
#GERD - BUS ESCORT PPI
#recent left hip replacement
-abductor pillow in place
#DVT prophylaxis
-lovenox
DNR
--- NOTE | 2025-06-09 12:33 | W.PN.UPDATE ---
Addendum entered and electronically signed by Víctor Lowe MD 06/09/25 14:03:
Relevant Data
06/07/25 06/09/25 06/09/25
06:10 07:56 11:09
Hgb 8.7 L 8.6 L
MCV 93.5
Creatinine 0.7
eGFR > 60.00
Troponin I 0.030 0.040 H* D
Original Note:
Update Note
Progress Note Update
This note serves as an addendum to the H&P by head orthopedic team physician RAMON�
Margarita ASHLEY
HPI
70M HX chronic stable angina with CAD that is currently medical therapy, recent NSTEMI seen at ER
- recurrent upper anterior chest pain started about an hour ago.
- a dull feeling. Minimal at this time.
- Some radiation to the arm
- no shortness of breath pleuritic pain back pain nausea diaphoresis or other complaints.
- chr Dyspnea at baseline
PHX
Relevant VS
GENERAL: Alert and oriented. Old for stated age
EYE: Orbits normal.
NECK: Supple, no significant adenopathy.
ENT: Pharynx without erythema
CARDIAC: Regular rate and rhythm without any obvious murmurs.
LUNGS: Clear breath sounds,normal
ABDOMEN: Soft, without focal tenderness or distention
NEUROLOGICAL: Alert and oriented , grossly non-focal
SKIN: Warm and dry, areas of superficial ecchymosis to the left and right arm. Bandages placed on the left arm. Dressing placed over attempted IV sticks
MUSCULOSKELETAL: Dressing to the left lateral hip. No signs of cellulitis. No unusual swelling or cord
PSYCH: Normal and appropriate interaction.
PE
Gen: Old for stated age
HEENT: anicteric
Neck: supple
Lungs: CTA
Cor: RRR without any obvious murmurs.
Abdomen:�soft benign
APPLIANCE INSTALLER: grossly NFND
MS: n o edema
Psych: Normal and appropriate interaction.
Relevant Data
06/09/25 EKG report
SINUS RHYTHM WITH PREMATURE ATRIAL COMPLEXES
RIGHT BUNDLE BRANCH BLOCK
ABNORMAL ECG
WHEN COMPARED WITH ECG OF 09-Jun-2025 09:33,
PREMATURE ATRIAL COMPLEXES ARE NOW PRESENT
T WAVE INVERSION NOW EVIDENT IN INFERIOR LEAD
04/17/25 Left heart catheterization with coronary left ventriculography
GAR-LAD patent, JONO Ygraft GAR to OM with 95% distal stenosis.
Last hospitalist admission: DATE OF ADMISSION: 05/24/2025 -DATE OF DISCHARGE: 05/31/2025
1. New high-grade stenosis in distal obtuse marginal branch just beyond JONO anastomosis. The JONO Y graft arises from the mid GAR graft and represents a sole remaining conduit to the LAD and circumflex
2. Widely patent GAR to LAD
3. Mild LV dysfunction
02/23/25 TTE
LVEF 50
Left hip hemiarthroplasty.
DISCHARGE DIAGNOSES:
1. Acute traumatic left femoral neck fracture.
2. Acute comminuted fractures involving the superior and inferior
right pubic rami.
3. Non ST-elevation myocardial infarction.
4. Coronary artery disease.
5. Essential hypertension.
6. Severe chronic obstructive pulmonary disease without
exacerbation.
ASSESSMENT & PLAN
Recurrent CP with mildly elevated second TPNI
Prominent inf TWI, normal sinus rhythm, right bundle branch block.
Recent NSTEMI
HX CAD/CABG 1998
Of note: Per [facility] as of March 2025 and [facility] card note - does not have many options due to OM lesion being distal to JONO graft and ANAM grafts are prone to dissection and tortuosity and force will be required to deliver equipment which may increase
this risk and if a complication occurs there would be limited treatment options. The OM is not small but is also not comparable to the LAD in vascular territory or myocardium supplied.
- on aspirin, Plavix
- on IMN 30mg daily
- on Ranexa 1000 mg BID continued
- Troponin trended down.
- [facility] card consult
HX recovered ICM with EF 50 to 55% by echo 11/2024
HX Chronic HFpEF
- on Frusemide dd MWF
- on GDMT ( spironolactone, Carvedilol, Statin )
HX NSVT
Paroxysmal atrial Fibrillation s/p ablation
- not on OAC per patient's choice
Essential Hypertension -
HX orthostatic hypotension
- SIS stockings ordered.
- on midodrine 3 times daily.
Hyperlipidemia
-continue HUMAN RESOURCES ANALYST regimen: ASA 81mg PO QD, Atorvastatin 80mg PO QD
Severe COPD without exacerbation
Chronic Hypoxic Respiratory Insufficiency on 3L
- without active wheezing on exam.
- HUMAN RESOURCES ANALYST Prednisone 10mg PO QD
-HUMAN RESOURCES ANALYST Azithromycin 250mg PO QD
- HUMAN RESOURCES ANALYST inhalers
- Mucinex BID
HX PAD s/p AAA repair and bilateral femoral artery endarterectomy 07/2018
BPH
- HUMAN RESOURCES ANALYST Flomax
Anxiety/Depression
- HUMAN RESOURCES ANALYST Wellbutrin, Zoloft
DM 2 with hyperglycemia -Last A1C A1c 8.0%.
- Hold pre-meal insulin in case need NPO
- c/w Lantus 7 units at bedtime.
- add ISS low
GERD
- HUMAN RESOURCES ANALYST PPI
Chronic urinary retention
-with chronic Vogel catheter.
Lt ENRIKE 2 weeks ago
DVT Px: LMWH
Code: DNR
IP TLM
--- NOTE | 2025-06-09 13:47 | CON.CAR ---
Consultation
Consultation Request
Date/Time Consultation Requested: 06/09/2025 12: 00
Date/Time Consultation Performed: 06/09/2025 1: 00
Requesting Provider: Mynor
Performing Provider: Darrel
Reason for Consultation: Chest pain
Medical History
-
Chief Complaint: Chest pain
History of Present Illness:
Justice has a longstanding h/o CAD and angina, well known to our service. During a previous cath in 2019 his LAD is functionally occluded with bridging collaterals, the GAR to LAD was patent, the diagonals were jeopardized filling retrograde, the
circumflex was occluded, and OM branch was filling via left to left collaterals, the JONO off the GAR was patent and the RCA was nondominant with a 90% proximal stenosis. He was being medically managed, but this has proved problematic due to
orthostasis. Had repeat cardiac cath 04/17/2025 that showed new high-grade stenosis in the distal OM just beyond the JONO anastomosis, his case was discussed among interventional cardiology and it was felt that PCI of the OM could be attempted, but
if a complication were to occur they would be limited treatment options and patient instead was started on Ranexa 500 mg BID for ongoing attempts at medical management.
He was admitted in May 2025 with a fall and hip fracture. He had a non-STEMI with peak troponin of 1.78 during that admission and was treated medically.
He woke up this morning with chest discomfort. He denies chest pain at the present time.
PMH:
CAD
s/p CABG 1998 at [facility] with GAR to LAD and free JONO Y graft from GAR to OM
cath showed progression of [place] CAD however patient bypass grafts 12/2019
cath 03/2025 with new OM lesion, felt to be high risk for intervention, medically managed
History of recovered ischemic cardiomyopathy, EF 50 to 55% by echo 11/2024
Chronic HFpEF
h/o NSVT
Chronic orthostatic hypotension
Sinus tachycardia
Paroxysmal atrial flutter
s/p ablation in 2017
Paroxysmal atrial fibrillation
diagnosed during 12/2019 admission without known recurrence
Not chronically anticoagulated due to patient's choice and low burden of atrial arrhythmia
PVD
h/o endovascular AAA repair and bilateral femoral artery endarterectomy and profundoplasty 07/2018
Type 2 diabetes
Hypertension
Hypercholesterolemia
Chronic right bundle-branch block
COPD on chronic supp O2, 3L
History of duodenal ulcer with microperforation in 2018
h/o daily ETOH use now abstinent
Former smoker
DNR
Past Medical History
Past Medical History: Other (in HPI)
Past Surgical History: Cardiac (CABG 1998, atrial flutter ablation 2017), Cholecystectomy, Tonsilectomy and Other (endovascular AAA repair 2016)
Social History
Tobacco: Former Smoker
Alcohol: None (he says he stopped drinking)
Drug: None
Personal: Single
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
Family History
Family History: CAD and Cancer (lung cancer)
Allergies / Home Medications
Allergy/AdvReac Type Severity Reaction Status Date / Time
lisinopril Allergy throat Verified 06/09/25 07:49
closes
�Medication �Instructions �Recorded �Confirmed �Type
albuterol sulfate 90 mcg/actuation 2 puff inhalation R Q6HPRN PRN SOB 07/02/23 06/09/25 History
aerosol inhaler
atorvastatin 80 mg tablet 80 mg PO DAILY High cholesterol 07/02/23 06/09/25 History
ipratropium 0.5 mg-albuterol 3 mg 3 ml inhalation R QIDPRN PRN SOB 07/02/23 06/09/25 History
(2.5 mg base)/3 mL nebulization
soln
pantoprazole 40 mg tablet,delayed 40 mg PO DAILY Gastrointestinal 07/02/23 06/09/25 History
release issue
tamsulosin 0.4 mg capsule 0.4 mg PO DAILY BPH 07/02/23 06/09/25 History
prednisone 10 mg tablet 10 mg PO DAILY Anti-inflammatory 09/10/23 06/09/25 Rx
#0 tabs
acetaminophen 325 mg tablet 650 mg PO Q4HPRN PRN mild 12/08/24 06/09/25 History
pain/fever
bisacodyl 10 mg rectal suppository 10 mg [place] [id number] PRN if mom 12/08/24 06/09/25 History
ineffective
magnesium hydroxide 400 mg/5 mL 30 ml PO HSPRN PRN constipation 12/08/24 06/09/25 History
oral suspension (Milk of Magnesia)
fluticasone propionate 50 2 spray intranasal DAILYPRN PRN 02/23/25 06/09/25 History
mcg/actuation nasal allergies
spray,suspension
budesonide 0.5 mg/2 mL suspension 0.5 mg inhalation R BID copd 04/13/25 06/09/25 History
for nebulization
insulin aspart U-100 100 unit/mL 3 unit (0.03 mL) SC AC Diabetes #0 04/16/25 06/09/25 Rx
(3 mL) subcutaneous pen mL
nitroglycerin 0.2 mg/hr 0.2 mg transdermal DAILY #0 ea 04/16/25 06/09/25 Rx
transdermal 24 hour patch
ascorbic acid (vitamin C) 500 mg 500 mg PO DAILY Supplement #0 tabs 04/18/25 06/09/25 Rx
tablet (Vitamin C)
aspirin 81 mg chewable tablet 81 mg PO DAILY Blood clot 04/18/25 06/09/25 Rx
(Children's Aspirin) prevention/tx #1 tab
bupropion HCl 300 mg 24 hr tablet, 300 mg PO DAILY Depression #0 tabs 04/18/25 06/09/25 Rx
extended release
dextromethorphan-guaifenesin 30 1 tab PO Q12H Congestion #0 tabs 04/18/25 06/09/25 Rx
mg-600 mg tablet extended
[id number] hr (Mucinex DM)
furosemide 20 mg tablet 20 mg PO MOWEFR Fluid 04/18/25 06/09/25 Rx
retention/Swelling #0 tabs
insulin glargine 100 unit/mL 7 unit (0.07 mL) SC HS Diabetes #0 04/18/25 06/09/25 Rx
subcutaneous solution (Lantus mL
U-100 Insulin)
melatonin 3 mg tablet 3 mg PO HS Sleep #0 tabs 04/18/25 06/09/25 Rx
polyethylene glycol 3350 17 gram 17 g PO DAILY Constipation #0 ea 04/18/25 06/09/25 Rx
oral powder packet
potassium chloride 20 mEq 20 meq PO DAILY Electrolyte 04/18/25 06/09/25 Rx
tablet,extended release(part/cryst) Repletion #0 tabs
spironolactone 25 mg tablet 12.5 mg (1/2 x 25 mg) PO DAILY 04/18/25 06/09/25 Rx
Heart disease/condition #0 tabs
sertraline 100 mg tablet 200 mg PO DAILY Mental 05/07/25 06/09/25 History
Health/Anxiety
sodium chloride 1 gram tablet 1,000 mg PO QID Supplement 05/07/25 06/09/25 History
carvedilol 12.5 mg tablet 12.5 mg PO BID #60 tabs 05/10/25 06/09/25 Rx
isosorbide mononitrate 30 mg 30 mg PO DAILY #30 tabs 05/10/25 06/09/25 Rx
tablet,extended release 24 hr
ranolazine 500 mg tablet,extended 1,000 mg (2 x 500 mg) PO BID #120 05/10/25 06/09/25 Rx
release,12 hr tabs
azithromycin 250 mg tablet 250 mg PO MOWEFR manager long term care 05/24/25 06/09/25 History
clopidogrel 75 mg tablet 75 mg PO DAILY Blood Clot 05/25/25 06/09/25 History
Prevention/Tx
lorazepam 0.5 mg tablet 0.5 mg PO TIDPRN PRN sleep/anxiety 05/30/25 06/09/25 Rx
#6 tabs
oxycodone 5 mg tablet 5 mg PO Q4HPRN PRN severe pain #10 05/30/25 06/09/25 Rx
tabs
midodrine 2.5 mg tablet 2.5 mg PO TID@0800,1300,1800 #0 05/31/25 06/09/25 Rx
tabs
aripiprazole 5 mg tablet 5 mg PO DAILY 06/09/25 06/09/25 History
ascorbic acid (vitamin C) 500 mg 500 mg PO DAILY 06/09/25 06/09/25 History
tablet (Vitamin C)
ferrous sulfate 325 mg (65 mg 325 mg PO DAILY 06/09/25 06/09/25 History
iron) tablet
sennosides 8.6 mg tablet (senna) 17.2 mg PO DAILY 06/09/25 06/09/25 History
Review of Systems
-
History Source: Patient
All other systems: Negative unless noted
Constitutional: No Symptoms
EENT: No Symptoms
Respiratory: No Symptoms
Cardiac: Chest Pain
Abdomen/GI: No Symptoms
: No Symptoms
Musculoskeletal: No Symptoms
Skin: No Symptoms
Neurological: No Symptoms
Endocrine: No Symptoms
Hematologic/Lymphatic: No Symptoms
Physical Exam
Vital Signs
Temp Pulse Resp BP Pulse Ox
98.3 F 89 24 139/90 100
06/09/25 07:42 06/09/25 11:15 06/09/25 11:15 06/09/25 11:00 06/09/25 11:15
Lab Results
06/09/25 07:56
06/09/25 07:56
General: Well developed, well nourished in NAD.
Neck: Supple, no JVD, HJR, carotids +2 B/L, no bruits bilaterally.
Heart: Non displaced PMI, RRR, no murmurs, No S3, S4, no rubs.
Lungs: Clear to auscultation bilaterally, no wheeze, rhonchi, rubs bilaterally,
normal expiratory phase.
Abdomen: Normal bowel sounds, soft, non-tender, non-distended.
Extremities: No clubbing, cyanosis or edema bilaterally.
Neuro: Grossly nonfocal, awake, alert and oriented x3.
Troponin I 0.040 ng/ml H* D 06/09/25 11:09
Impression / Plan
-
Primary Senior Visual Designer: Dr. MILA Woo
Impression:
Unstable angina/indeterminant troponin
Status post admission for fall with hip fracture in May 2025
Non-STEMI May 2025 with peak troponin of 1.78
CAD
s/p CABG 1999 at [facility] with GAR to LAD and free JONO Y graft from GAR to OM
cath showed progression of [place] CAD however patient bypass grafts 12/2019
cath 03/2025 with new OM lesion, felt to be high risk for intervention, medically managed
NSTEMI 05/26/25History of recovered ischemic cardiomyopathy, EF 50 to 55% by echo 11/2024
Chronic HFpEF
h/o NSVT
Chronic orthostatic hypotension
Sinus tachycardia
Paroxysmal atrial flutter
s/p ablation in 2017Paroxysmal atrial fibrillation
diagnosed during 12/2019 admission without known recurrenceNot chronically anticoagulated due to patient's choice and low burden of atrial arrhythmia
PVD
h/o endovascular AAA repair and bilateral femoral artery endarterectomy and profundoplasty 07/2018Type 2 diabetes
Hypertension
Hypercholesterolemia
Chronic right bundle-branch block
COPD on chronic supp O2, 3L
History of duodenal ulcer with microperforation in 2018
h/o daily ETOH use now abstinent
Former smoker
DNR
ECHO 09/06/23: Definity used, EF 45 to 50%, global hypokinesis, stage I diastolic dysfunction, mild MR, trace TR, PAP 25 to 30 mmHg
Echo 12/11/2024: EF 50 to 55%, no regional wall motion abnormalities, mild concentric LVH, no significant valvular disease
Echo 02/23/2025: EF 50%, mild to moderate concentric LVH, no significant valvular disease
Cath 04/17/25: GAR-LAD patent, JONO Ygraft GAR to OM with 95% distal stenosis.
Plan:
He was awoken with chest discomfort earlier today. Troponin 0.040. ECG unremarkable
Will treat as unstable angina. Catheterization in March 2025 and was not felt to be a candidate for intervention and has been treated medically.
Will increase Imdur from 30 mg daily to 60 mg daily and continue Ranexa
He otherwise appears stable from a cardiology viewpoint
Data Reviewed
-
EKG: Tracing Personally Visualized and interpreted
Radiology: Report Reviewed by me
Medical Tests (Nuc Med, Echo etc): Report Reviewed by me
Labs: Labs Reviewed by me
Old Records: Reviewed
--- NOTE | 2025-06-09 14:42 | EDRN ---
Patient taken to 316-1 on monitor on stretcher with abductor pillow in place.
[2025-06-09 15:47] LABS: Troponin I 0.293 ng/ml
[2025-06-09] MEDS: SODIUM CHLORIDE 1 GRAM PO ×3 (16:28→22:25)
[2025-06-09] MEDS: IMDUR (EXTENDED RELEASE) 60 MG PO (16:28)
[2025-06-09 16:37] LABS: Glucose - Point of Care 147 mg/dl (70-99)
[2025-06-09] MEDS: NOVOLOG FLEXPEN-LOW RESISTANCE SC (16:38)
[2025-06-09] MEDS: PULMICORT 0.5 MG INH (17:19)
[2025-06-09] MEDS: DUONEB 3 ML INH (17:20)
[2025-06-09] MEDS: LOVENOX 40 MG SC (17:49)
[2025-06-09 18:23] LABS: Troponin I 0.398 ng/ml
[2025-06-09] MEDS: RANEXA EXTENDED RELEASE 1000 MG PO (20:33)
[2025-06-09] MEDS: ATIVAN 0.5 MG PO (20:34)
[2025-06-09] MEDS: COREG 12.5 MG PO (20:34)
[2025-06-09] MEDS: MELATONIN 3 MG PO (20:35)
[2025-06-09] MEDS: ROXICODONE 5 MG PO (20:43)
[2025-06-09 21:10] LABS: Glucose - Point of Care 243 mg/dl (70-99)
[2025-06-09] MEDS: TYLENOL 650 MG PO (21:29)
[2025-06-09] MEDS: LANTUS 0.07 UNITS SC (21:30)
[2025-06-10 03:24] VITALS: BP 112/60
[2025-06-10 06:00] VITALS: BMI 23.7
[2025-06-10] MEDS: PULMICORT 0.5 MG INH ×2 (07:07→17:44)
[2025-06-10] MEDS: DUONEB 3 ML INH (07:07)
[2025-06-10 07:28] LABS: Hematocrit 26.9 % (39.0-52.0); Hemoglobin 8.2 g/dL (13.0-18.0); Mean Corp Hgb Conc. 30.5 g/dL (33.0-37.0); Mean Corpuscular Volume 91.8 fL (80.0-94.0); Platelet Count 304 10^3/uL (130-400); Red Cell Dist. Width 14.6 % (11.5-14.5)
[2025-06-10 07:45] LABS: HDL Cholesterol 44 mg/dl; LDL Cholesterol, Calculated 47 mg/dl; Very Low Density Lipoprotein 30 mg/dl (0-30)
[2025-06-10 08:21] VITALS: BP 129/67
[2025-06-10 08:21] LABS: Glucose - Point of Care 139 mg/dl (70-99)
[2025-06-10] MEDS: NOVOLOG FLEXPEN-LOW RESISTANCE SC ×2 (08:36→12:40)
[2025-06-10] MEDS: IMDUR (EXTENDED RELEASE) 60 MG PO (08:36)
[2025-06-10] MEDS: KCL 20 MEQ PO (08:37)
[2025-06-10] MEDS: RANEXA EXTENDED RELEASE 1000 MG PO ×2 (08:37→20:44)
[2025-06-10] MEDS: SODIUM CHLORIDE 1 GRAM PO ×4 (08:37→21:46)
[2025-06-10] MEDS: LOW STRENGTH ASPIRIN 81 MG PO (08:37)
[2025-06-10] MEDS: SENOKOT 17.2 MG PO (08:37)
[2025-06-10] MEDS: LIPITOR 80 MG PO (08:37)
[2025-06-10] MEDS: FLOMAX 0.4 MG PO (08:37)
[2025-06-10] MEDS: PLAVIX 75 MG PO (08:37)
[2025-06-10] MEDS: WELLBUTRIN XL (24 hour extended release) 300 MG PO (08:37)
[2025-06-10] MEDS: DELTASONE 10 MG PO (08:37)
[2025-06-10] MEDS: FEOSOL 325 MG PO (08:38)
[2025-06-10] MEDS: ZOLOFT 200 MG PO (08:38)
[2025-06-10] MEDS: ALDACTONE 12.5 MG PO (08:39)
[2025-06-10] MEDS: COREG 12.5 MG PO (08:39)
[2025-06-10] MEDS: PROTONIX 40 MG PO (08:40)
[2025-06-10] MEDS: NITRO-DUR 0.2 MG TRANSDERM (08:40)
[2025-06-10] MEDS: ABILIFY 5 MG PO (08:40)
[2025-06-10] MEDS: MIRALAX 17 GRAMS PO (08:40)
--- NOTE | 2025-06-10 10:02 | W.PN.HOSP.TC ---
Today's Communication/Plan
-
Imdur dose increased 60mg
cont asa/plavix
OOB/PT/OT
Monitor for symptoms with activity
Assessment / Plan
Assessment / Plan
#NSTEMI
-Chest CT with impression of no acute disease of the chest. No evidence of pulmonary embolus nor aortic dissection.ight upper lobe and lower lobe pulmonary nodules. Stable right upper lobe nodule from 05/30/2025. Likely benign. Follow-up
recommended.New right lower lobe pulmonary nodules.. Considering the acute development, these are consistent with inflammatory or infectious etiology.
-asa continued. Imdur dose increased to 60mg. Continue with aspirin, statin, beta-renato. Continue Plavix.
-Assess symptoms with mobility. PT ordered.
-cardiology correspondence noted. Monitor overnight. Monitor for recurrence of symptoms with activity.
#Recent left Intertrochanteric Hip Fracture s/p left hip hemiarthroplasty, 05/25/2025.
Superior and Inferior right pubic Rami Fracture
-PT ordered. Pain control.
# Anemia of chronic disease
- Hemoglobin stable. no active bleeding
- Continue to monitor
#CAD/CABG 1998
#Essential Hypertension
#hypotension
-Imdur, midodrine continued-Hold parameters added
#Hyperlipidemia
-Cont statin.
#Severe COPD without exacerbation
#Chronic Hypoxic Respiratory Insufficiency on 3L
-patient without active wheezing on exam.
-inhalers from home continued
-prednisone,zithromax continued
# Ischemic Cardiomyopathy
-ON SITE SOIL EVALUATOR Lasix MWF and Spironolactone
#PAD s/p AAA repair and bilateral femoral artery endarterectomy 07/2018
#paroxysmal atrial Fibrillation s/p ablation
-coreg continued
#BPH - ON SITE SOIL EVALUATOR Flomax
#Anxiety/Depression
-ON SITE SOIL EVALUATOR Wellbutrin, Zoloft
#DM 2 with hyperglycemia
-3units aspart with meals held
-sliding scale
- Continue Lantus 7 units at bedtime.
-CHO diet
#GERD - ON SITE SOIL EVALUATOR PPI
#recent left hip replacement
-abductor pillow in place
#DVT prophylaxis
-lovenox
DNR
PT/OT eval.
Anticipated Discharge: Within 24 hours
Subjective/Interval History
-
Date of Service: June 10, 2025
Denies any further chest pain at rest.
Came from [facility]
Objective Data
-
Labs:
Laboratory Results
06/10/25
06:25
WBC 8.4
Hgb 8.2 L
Hct 26.9 L
Plt Count 304
Vital Signs:
Vital Signs
Temp Pulse Resp BP Pulse Ox
97.5 F 82 18 129/67 98
06/10/25 08:21 06/10/25 09:52 06/10/25 08:21 06/10/25 09:52 06/10/25 08:21
I&O
06/09/25 06/10/25 06/11/25
06:59 06:59 06:59
Output Total 300 / 300
Balance -300 / -300
Physical Exam
-
General: Well Developed, Well Nourished, No Apparent Distress and Appears Chronically Ill
HEENT: Normocephalic, Atraumatic, Moist Mucous Membranes, Anicteric and Oxygen
Respiratory: Non Labored Respirations and Decreased Breath Sounds; Negative Accessory Resp Muscle Use
Cardiac: Regular Rhythm and S1/S2; Negative Murmur, Rub, JVD or Gallop
GI: Soft, Nontender, Nondistended and Normal Bowel Sounds
Musculoskeletal: Other (abductor pillow noted )
Skin: Warm, Dry and Normal Turgor; Negative Rash
Neuro: Awake, AO x 3 and Nonfocal/Grossly Intact; Negative Tremors
Psych: Calm
Data Reviewed
-
Total Time Spent with Patient (in minutes): 55
--- NOTE | 2025-06-10 10:21 | W.PN.CARDCBS ---
Today's Communication / Plan
-
No further chest pain on higher dose of Imdur
Continue medical therapy of non-STEMI and CAD which is felt to be nonrevascularizable
Impression / Plan
-
Primary Aeronautical Engineering Teacher: Dr. MILA Woo
Impression:
Non-STEMI with peak troponin of 0.398
Status post admission for fall with hip fracture in May 2025
Non-STEMI May 2025 with peak troponin of 1.78
CAD
s/p CABG 1998 at [facility] with GAR to LAD and free JONO Y graft from GAR to OM
cath showed progression of [place] CAD however patient bypass grafts 12/2019
cath 03/2025 with new OM lesion, felt to be high risk for intervention, medically managed
NSTEMI 05/26/25History of recovered ischemic cardiomyopathy, EF 50 to 55% by echo 11/2024
Chronic HFpEF
h/o NSVT
Chronic orthostatic hypotension
Sinus tachycardia
Paroxysmal atrial flutter
s/p ablation in 2017Paroxysmal atrial fibrillation
diagnosed during 12/2019 admission without known recurrenceNot chronically anticoagulated due to patient's choice and low burden of atrial arrhythmia
PVD
h/o endovascular AAA repair and bilateral femoral artery endarterectomy and profundoplasty 07/2018Type 2 diabetes
Hypertension
Hypercholesterolemia
Chronic right bundle-branch block
COPD on chronic supp O2, 3L
History of duodenal ulcer with microperforation in 2018
h/o daily ETOH use now abstinent
Former smoker
DNR
ECHO 09/06/23: Definity used, EF 45 to 50%, global hypokinesis, stage I diastolic dysfunction, mild MR, trace TR, PAP 25 to 30 mmHg
Echo 12/11/2024: EF 50 to 55%, no regional wall motion abnormalities, mild concentric LVH, no significant valvular disease
Echo 02/23/2025: EF 50%, mild to moderate concentric LVH, no significant valvular disease
Cath 6/24/25: GAR-LAD patent, JONO Ygraft GAR to OM with 95% distal stenosis.
Plan:
He has had no further chest pain on higher dose of Imdur 60 mg daily.
Possible discharge Monday 06/11 if remains pain-free with ambulation
Progress Note - Aeronautical Engineering Teacher
Subjective
Date of Service: June 10, 2025
No complaints. No further chest pain
Objective
Labs:
06/10/25 06:25
06/09/25 07:56
Labs
Hgb 8.2 g/dL (13.0-18.0) L 06/10/25 06:25
Hct 26.9 % (39.0-52.0) L 06/10/25 06:25
Plt Count 304 10^3/uL (130-400) 06/10/25 06:25
Sodium 140 mmol/L (135-145) 06/09/25 07:56
Potassium 4.0 mmol/L (3.5-5.1) 06/09/25 07:56
BUN 17 mg/dl (9-20) 06/09/25 07:56
Creatinine 0.7 mg/dL (0.7-1.3) 06/09/25 07:56
Glucose 134 mg/dl (70-99) H 06/09/25 07:56
Troponins
06/09/25 06/09/25 06/09/25
07:56 11:09 15:05
Troponin I 0.030 0.040 H* D 0.293 H* D
06/09/25
17:47
Troponin I 0.398 H* D
Vital Signs and I&O:
Vital Signs
Temp Pulse Resp BP Pulse Ox
97.5 F 82 18 129/67 98
06/10/25 08:21 06/10/25 09:52 06/10/25 08:21 06/10/25 09:52 06/10/25 08:21
Vital Signs
Temp Pulse Resp BP Pulse Ox
97.5 F 82 18 129/67 98
06/10/25 08:21 06/10/25 09:52 06/10/25 08:21 06/10/25 09:52 06/10/25 08:21
Intake & Output
06/08/25 06/09/25 06/10/25 06/11/25
06:59 06:59 06:59 06:59
Output Total 300 / 300
Balance -300 / -300
Physical Exam
Physical Exam
General: Well developed, well nourished in NAD.
Neck: Supple, no JVD, HJR, carotids +2 B/L, no bruits bilaterally.
Heart: Non displaced PMI, RRR, no murmurs, No S3, S4, no rubs.
Lungs: Scattered rhonchi
Extremities: No clubbing, cyanosis or edema bilaterally.
Neuro: Grossly nonfocal, awake, alert and oriented x3.
[2025-06-10 12:07] VITALS: BP 104/58
--- NOTE | 2025-06-10 14:42 | CM ---
Initial assessment completed with Justice who is a fdc resident at [facility]. B[employer]ING [employer] he ambulated with either a RW or SPC. Staff assisted with ADLs. Patient is on O2 3L continuously.
Justice was concerned that he had lost his phone during transfer to ED. Phone was confirmed to be in his room at [facility]; pt notified and was happy to know he did not lose the phone.
Plan: Return to [facility] LTC.
PCP: Renan Pedroza
Pharmacy: [facility] .
[2025-06-10] MEDS: ZYPREXA 5 MG IM (15:25)
[2025-06-10] MEDS: STERILE WATER FOR INJECTION 2.1 ML IM (15:25)
[2025-06-10] MEDS: LOVENOX 40 MG SC (16:58)
[2025-06-10 17:04] VITALS: BP 106/63
[2025-06-10 17:04] LABS: Glucose - Point of Care 191 mg/dl (70-99)
[2025-06-10] MEDS: NOVOLOG FLEXPEN-LOW RESISTANCE 1 UNITS SC (17:46)
[2025-06-10 19:00] VITALS: BP 91/54
[2025-06-10] MEDS: VALIUM INJECTION 2 MG IV (19:02)
[2025-06-10 19:41] LABS: Glucose - Point of Care 311 mg/dl (70-99)
[2025-06-10] MEDS: MUCINEX 600 MG PO (20:44)
[2025-06-10] MEDS: COREG PO (20:45)
[2025-06-10] MEDS: LANTUS 0.07 UNITS SC (21:45)
[2025-06-10] MEDS: MELATONIN 3 MG PO (21:46)
[2025-06-10 23:30] VITALS: BP 106/55
[2025-06-11] MEDS: ATIVAN 0.5 MG PO ×2 (02:23→11:59)
[2025-06-11] MEDS: TYLENOL 650 MG PO ×2 (02:23→11:58)
[2025-06-11 03:00] VITALS: BP 128/68
[2025-06-11 06:00] VITALS: BMI 23.0
[2025-06-11 07:00] VITALS: BP 147/75
[2025-06-11] MEDS: FEOSOL 325 MG PO (07:06)
[2025-06-11] MEDS: MIRALAX 17 GRAMS PO (07:06)
[2025-06-11] MEDS: NITRO-DUR 0.2 MG TRANSDERM (07:06)
[2025-06-11] MEDS: WELLBUTRIN XL (24 hour extended release) 300 MG PO (07:06)
[2025-06-11] MEDS: IMDUR (EXTENDED RELEASE) 60 MG PO (07:06)
[2025-06-11] MEDS: ALDACTONE 12.5 MG PO (07:06)
[2025-06-11] MEDS: SODIUM CHLORIDE 1 GRAM PO ×2 (07:06→12:27)
[2025-06-11] MEDS: SENOKOT 17.2 MG PO (07:07)
[2025-06-11] MEDS: COREG 12.5 MG PO (07:07)
[2025-06-11] MEDS: RANEXA EXTENDED RELEASE 1000 MG PO (07:07)
[2025-06-11] MEDS: PROTONIX 40 MG PO (07:07)
[2025-06-11] MEDS: MUCINEX 600 MG PO (07:07)
[2025-06-11] MEDS: PLAVIX 75 MG PO (07:07)
[2025-06-11] MEDS: ZITHROMAX 250 MG PO (07:07)
[2025-06-11] MEDS: ZOLOFT 200 MG PO (07:07)
[2025-06-11] MEDS: DELTASONE 10 MG PO (07:08)
[2025-06-11] MEDS: LIPITOR 80 MG PO (07:08)
[2025-06-11] MEDS: ABILIFY 5 MG PO (07:08)
[2025-06-11] MEDS: LOW STRENGTH ASPIRIN 81 MG PO (07:08)
[2025-06-11] MEDS: KCL 20 MEQ PO (07:08)
[2025-06-11] MEDS: FLOMAX 0.4 MG PO (07:08)
[2025-06-11] MEDS: LASIX 20 MG PO (07:09)
[2025-06-11 07:23] LABS: Hematocrit 28.7 % (39.0-52.0); Hemoglobin 8.4 g/dL (13.0-18.0); Mean Corp Hgb Conc. 29.3 g/dL (33.0-37.0); Mean Corpuscular Volume 94.4 fL (80.0-94.0); Platelet Count 310 10^3/uL (130-400); Red Cell Dist. Width 14.7 % (11.5-14.5)
[2025-06-11 07:33] LABS: Glucose - Point of Care 117 mg/dl (70-99)
[2025-06-11] MEDS: NOVOLOG FLEXPEN-LOW RESISTANCE SC (07:46)
[2025-06-11 07:53] LABS: Blood Urea Nitrogen 20 mg/dl (9-20); Calcium 8.6 mg/dl (8.4-10.2); Carbon Dioxide 30 mmol/L (22-30); Chloride 106 mmol/L (98-107); Estimated Creatinine Clearance 99 ml/min; Glucose 112 mg/dl (70-99); Potassium 3.7 mmol/L (3.5-5.1); Sodium 143 mmol/L (135-145); eGFR > 60.00
[2025-06-11] MEDS: PULMICORT 0.5 MG INH (07:54)
--- NOTE | 2025-06-11 09:31 | STATUS ---
SITUATION:
BACKGROUND:
ASSESSMENT:
RECOMMENDATION:
--- NOTE | 2025-06-11 09:31 | CM ---
Addendum entered by Lyly Moody 06/11/25 11:06:
IMM explained & signed. In chart.
Discharge to [facility] today
5pm transport set
Musa Updated at [facility]
PLAN: [facility] LTC today
Report #: [phone]
Fax #: [phone]
Original Note:
Patient chart reviewed
Patient LTC resident [facility]
Referral placed in [facility]
spoke with Cindy at [facility] & updated
PLAN: [facility] LTC when medically stable
Report #: [phone]
Fax #: [phone]
--- NOTE | 2025-06-11 10:18 | W.PN.HOSP.TC ---
Today's Communication/Plan
-
dc if ok with cardiology
Assessment / Plan
Assessment / Plan
Physical Exam
General: Well Developed, Well Nourished and No Apparent Distress
HEENT: NormoCephalic, Moist mucous membranes and Atraumatic
Respiratory: Clear
Cardiac: S1/S2
GI: Soft, Non Tender, Non Distended and Normal Bowel Sounds;
Rectal: No bleeding
Musculoskeletal: No Clubbing, No Cyanosis and No Edema
Skin: No Rash
Neuro: AO x 3 and Nonfocal/grossly intact
Psych: Calm
#NSTEMI
-Chest CT with impression of no acute disease of the chest. No evidence of pulmonary embolus nor aortic dissection.ight upper lobe and lower lobe pulmonary nodules. Stable right upper lobe nodule from 05/30/2025. Likely benign. Follow-up
recommended.New right lower lobe pulmonary nodules.. Considering the acute development, these are consistent with inflammatory or infectious etiology.
-asa continued. Imdur dose increased to 60mg. Continue with aspirin, statin, beta-renato. Continue Plavix.
-Assess symptoms with mobility. PT ordered.
-cardiology correspondence noted. Monitored overnight. Monitor for recurrence of symptoms with activity, no recurrent symptoms
d/w calculating machine operator Dr Rojo, ok to c/w same dose of Imdue ( higher at 60) but increase Midodrine, no need for iVF to help with low BP upon standing.
#Recent left Intertrochanteric Hip Fracture s/p left hip hemiarthroplasty, 05/25/2025.
Superior and Inferior right pubic Rami Fracture
-PT ordered. Pain control.
# Anemia of chronic disease
- Hemoglobin stable. no active bleeding
- Continue to monitor
#CAD/CABG 1998
#Essential Hypertension
#hypotension
-Imdur, midodrine continued-Hold parameters added
#Hyperlipidemia
-Cont statin.
#Severe COPD without exacerbation
#Chronic Hypoxic Respiratory Insufficiency on 3L
-patient without active wheezing on exam.
-inhalers from home continued
-prednisone,zithromax continued
# Ischemic Cardiomyopathy
-SLUBBER FRAME CHANGER Lasix MWF and Spironolactone
#PAD s/p AAA repair and bilateral femoral artery endarterectomy 07/2018
#paroxysmal atrial Fibrillation s/p ablation
-coreg continued
#BPH - SLUBBER FRAME CHANGER Flomax
#Anxiety/Depression
-SLUBBER FRAME CHANGER Wellbutrin, Zoloft
#DM 2 with hyperglycemia
-3units aspart with meals held
-sliding scale
- Continue Lantus 7 units at bedtime.
-CHO diet
#GERD - SLUBBER FRAME CHANGER PPI
#recent left hip replacement
-abductor pillow in place
#DVT prophylaxis
-lovenox
DNR
PT/OT eval.
Total discharge time spent to see the patient, examine the patient, review data and lab result, discuss discharge plan with patient, nursing staff around 65 minutes
Anticipated Discharge: Today
Subjective/Interval History
-
Date of Service: June 11, 2025
No chest pain or sob
He wants to go back to his place today
Objective Data
-
Labs:
Laboratory Results
06/11/25
06:07
WBC 8.0
Hgb 8.4 L
Hct 28.7 L
Plt Count 310
Sodium 143
Potassium 3.7
Chloride 106
Carbon Dioxide 30
BUN 20
Creatinine 0.7
Glucose 112 H
Calcium 8.6
Vital Signs:
Vital Signs
Temp Pulse Resp BP Pulse Ox
97.8 F 102 20 147/75 92
06/11/25 07:00 06/11/25 07:56 06/11/25 07:56 06/11/25 07:09 06/11/25 07:56
I&O
06/10/25 06/11/25 06/12/25
06:59 06:59 06:59
Intake Total 520 / 520
Output Total 300 / 300 125 / 125
Balance -300 / -300 395 / 395
[2025-06-11 10:45] VITALS: BP 100/51; BP 125/70; BP 87/52; PULSE 83; O2SAT 93
[2025-06-11 11:00] VITALS: BP 90/53
[2025-06-11] MEDS: NSS 500 IV (11:07)
[2025-06-11 11:17] VITALS: BP 100/51; BP 125/70; BP 87/52; PULSE 83; O2SAT 93
[2025-06-11 11:41] LABS: Glucose - Point of Care 208 mg/dl (70-99)
[2025-06-11] MEDS: NOVOLOG FLEXPEN-LOW RESISTANCE 2 UNITS SC (12:24)
--- NOTE | 2025-06-11 12:46 | W.PN.CARDCBS ---
Addendum entered and electronically signed by Kris Rojo MD 06/11/25 13:47:
I saw and examined the patient.
The ESTABLISHMENT GUIDE or PA's note was reviewed and I agree with the note.
Comment: General: Well developed, well nourished in NAD.
Neck: Supple, no JVD, HJR, carotids +2 B/L, no bruits bilaterally.
Heart: Non displaced PMI, RRR, no murmurs, No S3, S4, no rubs.
Lungs: Scattered rhonchi
Extremities: No clubbing, cyanosis or edema bilaterally.
Neuro: Grossly nonfocal, awake, alert and oriented x3.
Hypotensive earlier today with physical therapy. Likely due to orthostasis. He is getting IV fluids. Will stop IV fluids with EF of 40%. Will increase midodrine. Is possible orthostasis has been worsened by increasing Imdur dose as he is also
on nitroglycerin patch. Prefer to keep medications given severe CAD with multiple recent hospitalizations. Will reassess later today after higher dose of midodrine. Discussed with nursing and primary service
Original Note:
Today's Communication / Plan
-
Cont Imdur and Nitro-dur patch, chest pain has improved
Impression / Plan
-
Primary Mortgage Counselor: Dr. MILA Woo
Impression:
Admitted with recurrent chest pain and elevated Troponin 06/09/25
NSTEMI with peak troponin of 0.398
Recent admission for fall and hip fracture plus NSTEMI 05/24/2025 until 05/31/2025
Recent admission for chest pain and NSTEMI 05/07/2025 until 05/10/2025
Recent admission for chest pain and NSTEMI 04/13/2025 until 04/18/2025
Recent admission for chest pain and elevated troponin 02/23/25 until 02/24/2025
CAD
s/p CABG 1998 at [facility] with GAR to LAD and free JONO Y graft from GAR to OM
cath showed progression of [place] CAD however patient bypass grafts 12/2019
cath 03/2025 with new OM lesion, felt to be high risk for intervention, medically managed
NSTEMI 05/26/25
History of recovered ischemic cardiomyopathy, EF 50 to 55% by echo 11/2024
Chronic HFpEF
h/o NSVT
Chronic orthostatic hypotension
Sinus tachycardia
Paroxysmal atrial flutter
s/p ablation in 2018Paroxysmal atrial fibrillation
diagnosed during 12/2019 admission without known recurrence
Not chronically anticoagulated due to patient's choice and low burden of atrial arrhythmia
PVD
h/o endovascular AAA repair and bilateral femoral artery endarterectomy and profundoplasty 07/2018
Type 2 diabetes
Hypertension
Hypercholesterolemia
Chronic right bundle-branch block
COPD on chronic supp O2, 3L
History of duodenal ulcer with microperforation in 2017
h/o daily ETOH use now abstinent
Former smoker
DNR
ECHO 09/06/23: Definity used, EF 45 to 50%, global hypokinesis, stage I diastolic dysfunction, mild MR, trace TR, PAP 25 to 30 mmHg
Echo 12/11/2024: EF 50 to 55%, no regional wall motion abnormalities, mild concentric LVH, no significant valvular disease
Echo 02/23/2025: EF 50%, mild to moderate concentric LVH, no significant valvular disease
Cath 04/17/25: GAR-LAD patent, JONO Y-graft GAR to OM with 95% distal stenosis.
Plan:
-Patient admitted with recurrent chest pain and elevated Troponin. Initial Troponin was 0.04 and then up as high as 0.398.
-This is the patient's 5th admission since February for chest pain and elevated troponin/NSTEMI
-Patient with known CAD and does not have many options due to OM lesion being distal to JONO graft and ANAM grafts are prone to dissection and tortuosity and force will be required to deliver equipment which may increase this risk and if a
complication occurs there would be limited treatment options. The OM is not small but is also not comparable to the LAD in vascular territory or myocardium supplied.
-Plan is for ongoing medical management. Medical management has at times been limited due to hypotension. Outpatient dose of midodrine 5 mg TID has also been continued
-Outpatient dose of Ranexa 1000 mg BID has been continued
-Outpatient regimen of Imdur ER 60 mg daily has been continued and patient is also on Nitro-Dur 0.2 mg/HR patch, his chest pain is overall improved so we will attempt to continuing this regimen.
-IVFs stopped by cardiology on 06/11/25 due to h/o CHF. Will cont with midodrine for now and increase if needed
-Outpatient dose of Coreg 12.5 mg BID has been continued, he missed a single dose due to hypotension
-Outpatient dose of Lasix 20 mg MWF has been be continued
-Outpatient dose of spironolactone 12.5 mg daily has been continued
-Outpatient dose of aspirin 81 mg daily has been continued
-Outpatient dose of Plavix 75 mg daily has been continued
-LDL 47 and outpatient dose of atorvastatin 80 mg daily has been continued
-Patient is not a candidate for cardiac rehab as he chronically lives in a assisted and is chair bound due to orthostasis
Progress Note - Mortgage Counselor
Subjective
Date of Service: June 11, 2025
Patient felt dizzy earlier, but feels better now
Objective
Labs:
06/11/25 06:07
06/11/25 06:07
Labs
Hgb 8.4 g/dL (13.0-18.0) L 06/11/25 06:07
Hct 28.7 % (39.0-52.0) L 06/11/25 06:07
Plt Count 310 10^3/uL (130-400) 06/11/25 06:07
Sodium 143 mmol/L (135-145) 06/11/25 06:07
Potassium 3.7 mmol/L (3.5-5.1) 06/11/25 06:07
BUN 20 mg/dl (9-20) 06/11/25 06:07
Creatinine 0.7 mg/dL (0.7-1.3) 06/11/25 06:07
Glucose 112 mg/dl (70-99) H 06/11/25 06:07
Troponins
06/09/25 06/09/25 06/09/25
07:56 11:09 15:05
Troponin I 0.030 0.040 H* D 0.293 H* D
06/09/25
17:47
Troponin I 0.398 H* D
Vital Signs and I&O:
Vital Signs
Temp Pulse Resp BP Pulse Ox
97.6 F 84 19 105/58 95
06/11/25 11:00 06/11/25 12:28 06/11/25 11:00 06/11/25 12:28 06/11/25 11:00
Vital Signs
Temp Pulse Resp BP Pulse Ox
97.6 F 84 19 105/58 95
06/11/25 11:00 06/11/25 12:28 06/11/25 11:00 06/11/25 12:28 06/11/25 11:00
Intake & Output
06/09/25 06/10/25 06/11/25 06/12/25
06:59 06:59 06:59 06:59
Intake Total 520 / 520
Output Total 300 / 300 125 / 125
Balance -300 / -300 395 / 395
Physical Exam
Physical Exam
GEN: NAD. AAOx3
LUNGS: RA. Clear anterolaterally
CV: SR on tele
--- NOTE | 2025-06-11 13:38 | W.DCSUMMARY ---
Discharge Summary
Discharge Data
Date of Admission: 06/09/25
Date of Discharge: 06/11/25
-
Pending Results: No
Hospital Course
70 years old male presented with chest pain. Patient reported recurrent chest pain. He was found to have elevated troponin with initial around 0.04 then went up to high 0.39. Patient was diagnosed with non-ST elevation WI. He was evaluated by
haz tech. Patient had history of coronary artery disease. He had cardiac catheterization in March 2025. Physician Relations Representative recommended to continue with medical management. Patient has a chronic hypotension. His outpatient dose of midodrine
increased to 5 mg 3 times a day. His Imdur dose was continued but increased to 60 mg daily with addition of nitro�Dur 0.2 mg/hour patch. Patient was monitored and did not have recurrent chest pain. Patient was insistent upon leaving the hospital.
Patient was not a candidate for cardiac rehab because he was living in a usp and wheelchair-bound due to orthostasis. Patient remained hemodynamically stable. Case management was involved in discharge planning. Patient was discharged in
a stable condition.
Discharge Plan
-
Patient Disposition: Home with Home Care
Discharge Diagnosis/Procedures: CAD
You are seen by haz tech. Increase the dose of Imdur. Increase the dose of midodrine to help with low blood pressure.
Condition: Fair
Diet: As tolerated
Referrals:
Tab Woo MD [Family Provider, [facility]] - in one to two weeks
Prescriptions:
New
midodrine 5 mg Tablet
5 mg PO TID@0800,1300,1800 Qty: 90 0RF
isosorbide mononitrate 60 mg Tablet Extended Release 24 Hr
60 mg PO DAILY Qty: 30 0RF
Continued
ipratropium-albuterol 0.5 mg-3 mg(2.5 mg base)/3 mL Solution For Nebulization
3 ml INHALATION R QIDPRN PRN (Reason: SOB)
albuterol sulfate 90 mcg/actuation Hfa Aerosol Inhaler
2 puff INHALATION R Q6HPRN PRN (Reason: SOB)
tamsulosin 0.4 mg Capsule
0.4 mg PO DAILY
atorvastatin 80 MG tablet
80 mg PO DAILY
pantoprazole 40 MG tablet,delayed release (DR/EC)
40 mg PO DAILY
prednisone 10 MG tablet
10 mg PO DAILY Qty: 0 0RF
acetaminophen 325 mg Tablet
650 mg PO Q4HPRN PRN (Reason: mild pain/fever)
magnesium hydroxide [Milk of Magnesia] 400 mg/5 mL Suspension
30 ml PO HSPRN PRN (Reason: constipation)
bisacodyl 10 mg Suppository
10 mg MT [id number] PRN (Reason: if mom ineffective)
fluticasone propionate 50 mcg/actuation [place],Suspension
2 spray INTRANASAL DAILYPRN PRN (Reason: allergies)
budesonide 0.5 mg/2 mL suspension for nebulization
0.5 mg inhalation R BID
nitroglycerin 0.2 mg/hr Patch 24 Hour
0.2 mg transdermal DAILY Qty: 0 0RF
insulin aspart U-100 100 unit/mL (3 mL) Insulin Pen
3 unit SC AC Qty: 0 0RF
polyethylene glycol 3350 17 gram Powder In Packet
17 g PO DAILY Qty: 0 0RF
insulin glargine [Lantus U-100 Insulin] 100 unit/mL solution
7 unit SC HS Qty: 0 0RF
melatonin 3 mg Tablet
3 mg PO HS Qty: 0 0RF
spironolactone 25 mg Tablet
12.5 mg PO DAILY Qty: 0 0RF
potassium chloride 20 mEq tablet,ER particles/crystals
20 meq PO DAILY Qty: 0 0RF
ascorbic acid (vitamin C) [Vitamin C] 500 mg tablet
500 mg PO DAILY Qty: 0 0RF
aspirin [Children's Aspirin] 81 mg Tablet,Chewable
81 mg PO DAILY Qty: 1 0RF
furosemide 20 mg Tablet
20 mg PO MOWEFR Qty: 0 0RF
Mucinex DM 30-600 mg Tablet Extended Release 12 Hr
1 tab PO Q12H Qty: 0 0RF
bupropion HCl 300 mg tablet extended release 24 hr
300 mg PO DAILY Qty: 0 0RF
sertraline 100 mg Tablet
200 mg PO DAILY
sodium chloride 1 gram Tablet
1,000 mg PO QID
carvedilol 12.5 mg Tablet
12.5 mg PO BID Qty: 60 0RF
ranolazine 500 mg Tablet Extended Release 12 Hr
1,000 mg PO BID Qty: 120 0RF
azithromycin 250 MG tablet
250 mg PO MOWEFR
clopidogrel 75 mg tablet
75 mg PO DAILY
oxycodone 5 mg Tablet
5 mg PO Q4HPRN PRN (Reason: severe pain) Qty: 10 0RF
lorazepam 0.5 mg tablet
0.5 mg PO TIDPRN PRN (Reason: sleep/anxiety) Qty: 6 0RF
sennosides [senna] 8.6 mg Tablet
17.2 mg PO DAILY
ascorbic acid (vitamin C) [Vitamin C] 500 mg Tablet
500 mg PO DAILY
ferrous sulfate 325 mg (65 mg iron) Tablet
325 mg PO DAILY
aripiprazole 5 mg Tablet
5 mg PO DAILY
Discontinued
isosorbide mononitrate 30 mg Tablet Extended Release 24 Hr
30 mg PO DAILY Qty: 30 0RF
midodrine 2.5 mg Tablet
2.5 mg PO TID@0800,1300,1800 Qty: 0 0RF
Discharge Orders:
Discharge Patient (As Directed); Ordered 06/11/25
Ordered By: Benjamín Plaza
Discharge Date and Time
Discharge Date/Time: 06/11/25 14:16
Print Language: ESTONIAN
== END 2025-06-11 14:16 | DRG 281 ==
LOC: 3 WEST ACU 12:44
PROVIDERS: Hospitalist; Registered Nurse; ADMITTING PHYSICIAN Internal Medicine; ATTENDING PHYSICIAN Internal Medicine; CONSULT PHYSICIAN Internal Medicine Cardiovascular Disease; EMERGENCY PHYSICIAN Emergency Medicine; FAMILY PHYSICIAN Family Medicine
DX: I21.4 Non-ST elevation (NSTEMI) myocardial infarction (principal); I48.92 Unspecified atrial flutter; I50.32 Chronic diastolic (congestive) heart failure; I25.10 Atherosclerotic heart disease of native coronary artery without angina pectoris; Z79.899 Other long term (current) drug therapy; Z79.4 Long term (current) use of insulin; G47.30 Sleep apnea, unspecified; I48.0 Paroxysmal atrial fibrillation; K58.9 Irritable bowel syndrome, unspecified; J44.9 Chronic obstructive pulmonary disease, unspecified; K21.9 Gastro-esophageal reflux disease without esophagitis; I11.0 Hypertensive heart disease with heart failure; Z95.1 Presence of aortocoronary bypass graft; Z87.891 Personal history of nicotine dependence; Z88.8 Allergy status to other drugs, medicaments and biological substances; Z95.5 Presence of coronary angioplasty implant and graft; Z96.642 Presence of left artificial hip joint; Z87.11 Personal history of peptic ulcer disease; Z86.79 Personal history of other diseases of the circulatory system; Z79.02 Long term (current) use of antithrombotics/antiplatelets; D63.8 Anemia in other chronic diseases classified elsewhere; E11.51 Type 2 diabetes mellitus with diabetic peripheral angiopathy without gangrene; E11.65 Type 2 diabetes mellitus with hyperglycemia; E78.00 Pure hypercholesterolemia, unspecified; F32.A Depression, unspecified; F41.9 Anxiety disorder, unspecified; I25.2 Old myocardial infarction; I25.5 Ischemic cardiomyopathy; I45.10 Unspecified right bundle-branch block; I95.1 Orthostatic hypotension; N40.1 Benign prostatic hyperplasia with lower urinary tract symptoms; R33.8 Other retention of urine; S72.002D Fracture of unspecified part of neck of left femur, subsequent encounter for closed fracture with routine healing; Z66 Do not resuscitate; Z79.82 Long term (current) use of aspirin
CPT/HCPCS: 71275; 80048; 80061; 82962; 84484; 85025; 85027; 87070; 93005; 94640; 94760; 97163; 97167; 97530; 99285; J2358; Q9967

== ENCOUNTER → 2025-06-15 10:23 | Outpatient (REF) | payer MEDICARE, MEDICAID, SELFPAY ==
[2025-06-15 11:00] LABS: Urine Character Clear (Clear)
[2025-06-15 11:27] LABS: Urine Red Blood Cell 0-2 /HPF (0-2); Urine Squamous Cell 0-2 /LPF (Few); Urine White Cell 50-60 /HPF (0-5)
== END ==
LOC: OLABN 10:23
PROVIDERS: ATTENDING PHYSICIAN Student in an Organized Health Care Education/Training Program
DX: R35.0 Frequency of micturition (principal); R39.15 Urgency of urination
CPT/HCPCS: 81003; 81015; 87077; 87086

== ENCOUNTER 2025-07-02 05:10 | Inpatient (IN) | payer MEDICARE, OTHER, SELFPAY ==
[2025-07-02] VITALS (29 sets, daily range): BP systolic 77–172; BP diastolic 57–96; BMI 24.2; BMI 24.0
--- NOTE | 2025-07-02 03:07 | ED.GENMED ---
History of Present Illness
General
Chief Complaint: Chest Pain
Source: patient, ambulance crew, previous radiology exam and previous hospital records (Multiple recent hospitalizations including March, April and then again May for chest pain, non-STEMI.)
Exam Limitations: none
Time Seen by Provider: 07/02/25 02:50
Nursing documentation reviewed up to this point in time: agreed with
History of Present Illness
History of Present Illness:
The patient is a 70-year-old male residing in a local shelter with a complex past medical history. He has history of severe CAD, CABG 1998, severe peripheral vascular disease with repair of abdominal aortic aneurysm and bilateral iliac artery
limb extensions, multiple recent hospitalizations over the past several months for recurrent chest pain, recurrent non-STEMI's. He underwent cardiac catheterization April 18 which showed CAD not amenable to surgical intervention and recommended
continued medical therapy. Ranexa was added in March along with Nitro patch. He was again hospitalized in April with chest pain, non-STEMI. Coreg dose was increased at that time and Plavix was added. Most recently hospitalized mid May with
chest pain/recurrent non-STEMI. Imdur dose was increased to 60 mg. Due to history of chronic orthostasis, midodrine dose was increased to 5 mg 3 times daily. He presents via EMS with complaints of chest pain that woke him from sleep around 2 AM.
The pain is described as similar to episodes he experienced with non-STEMI MIs over the past several months.
The patient reports that the pain has improved but persists. Nitroglycerin has not been administered by EMS or at the shelter. He was given 324 mg of aspirin en route. The patient also reports shortness of breath; he has history of chronic
obstructive pulmonary disease (COPD), which requires long-term oxygen therapy at two to three liters. He denies new symptoms such as nausea or abdominal pain.
The patient notes a new-onset cough that began three weeks ago, which is nonproductive, though not associated with worsened chest pain or deep breaths. His chest pain does not exacerbate upon coughing or taking a deep breath.
Recent admission for chest pain and non-STEMI June 09, 2025 UNTIL 06/11/2025
Recent admission for fall and hip fracture plus NSTEMI 05/24/2025 until 05/31/2025
Recent admission for chest pain and NSTEMI 05/07/2025 until 05/10/2025
Recent admission for chest pain and NSTEMI 04/13/2025 until 04/18/2025
Recent admission for chest pain and elevated troponin 02/23/25 until 02/24/2025
CAD
s/p CABG 1999 at [facility] [place] with GAR to LAD and free JONO Y graft from GAR to OM
cath showed progression of poarch CAD however patient bypass grafts 12/2019
cath 03/2025 with new OM lesion, felt to be high risk for intervention, medically managed
History of recovered ischemic cardiomyopathy, EF 50 to 55% by echo 11/2024
Chronic HFpEF
h/o NSVT
Chronic orthostatic hypotension
Sinus tachycardia
Paroxysmal atrial flutter
s/p ablation in 2017Paroxysmal atrial fibrillation
diagnosed during 12/2019 admission without known recurrence
Not chronically anticoagulated due to patient's choice and low burden of atrial arrhythmia.. He is chronically maintained on low-dose aspirin as well as Plavix.
PVD
h/o endovascular AAA repair and bilateral femoral artery endarterectomy and profundoplasty 07/2018Type 2 diabetes
Hypertension
Hypercholesterolemia
Chronic right bundle-branch block
COPD on chronic supp O2, 3L
History of duodenal ulcer with microperforation in 2017
h/o daily ETOH use now abstinent
Former smoker
DNR
Past History
Past History
ED Past Medical History: Arrthythmia (Atrial fib), CAD, CHF, COPD, GERD, HTN, Hypercholesterolemia, IDDM, ID (Non-STEMI December 2019), Valvular disease and Other (Back pain, Headaches, Sleep apnea, IBS, Pancreatitis, Ulcers, Gastritis, Anemia, )
ED Past Surgical History: Cardiac (CABG, PTCA with stent), Cholecystectomy (January 2016), Orthopedic (Right wrist surgery), Tonsilectomy and Other (hernia repair, endovascular AAA with bilateral femoral endarterectomy and profundoplasty 07/2018)
Social History
Tobacco: Former smoker
Alcohol: Former
Drug: None
Personal: Single
Living: shelter
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
Family History
Family History: Hypertension
Phy Exam
Physical Exam
Physical Exam:
GENERAL: 70-year-old gentleman appears older than stated age, appears somewhat chronically debilitated. Mild to moderate dyspnea, pursed lip breathing. Able to speak in short sentences. Pulse ox 97% on 2 L nasal cannula.
EYE: pupils equal and reactive. anicteric
NECK: Supple, nontender, no meningismus, no significant adenopathy. Mild JVD.
ENT: oral mucosa is moist. No rhinorrhea.
CARDIAC: Regular rate and rhythm. no murmur.
LUNGS: Mild to moderate shortness of breath, pursed lip breathing. Markedly decreased breath sounds throughout with bibasilar rales.
ABDOMEN: Soft, nondistended, without focal tenderness, no r/g, no cvat. normoactive BS. Chronic indwelling Vogel catheter.
NEUROLOGICAL: Alert and oriented x3, no focal neuro deficits.
SKIN: Warm and dry, minimally pale in color, skin intact. No rash. No cyanosis.
MUSCULOSKELETAL: No C/C/E. peripheral pulses are full and equal b/l. No palpable tenderness.
PSYCH: Normal and appropriate interaction.
Scores
Heart Score for Chest Pain Patients
STEMI patient?: No
History: Moderately Suspicious
ECG: Significant ST-Depression
Age: >/= 65 years
Risk Factors: >/= 3 Risk Factors or History of CAD
Troponin: >/= 3 x Normal Limit
Heart Score for Chest Pain Patients: 9
Heart Score Risk: 72.7 % MACE over next 6 weeks
Course
Orders/Labs/Results
Orders:
Orders
07/02/25 02:51
Electrocardiogram (*1) Urgent
Reason for Study: Chest Pain
EKG- Treatment ONCE
07/02/25 03:04
Complete Blood Count/With Diff Urgent
Comprehensive Metabolic Panel Urgent
NT-proBNP Urgent
Troponin I Urgent
07/02/25 03:28
CR Chest Portable - 1 View Urgent
Comment:
Reason For Exam: CP, SOB
Reason Study Needs to be Portable: Patient Unstable
07/02/25 03:29
Nitroglycerin Sublingual [Nitrostat (Sublingual)] 0.4 mg SL NOW STA
07/02/25 03:32
PTT Urgent
07/02/25 03:46
0.9% Sodium Chloride 500 ml [Nss] 500 ml IV BOLUS
07/02/25 04:15
Heparin 4,000 units IV NOW STA
Heparin 54999 Units/250 ml 25,000 units in 250 ml IV PER PROTOCOL
Weight to be used for heparin protocol in kilograms (kg):: 72.2
Protocol:: Cardiac Tx/Acute Coronary
PTT Goal Range to be used:: PTT 73 to 111 seconds
Order type:: Initial
INITIAL Infusion Dose (UNITS/KG/hr) & then follow protocol:: 12 units/kg/hr
Infusion Dose in UNITS/hr & then follow protocol (UNITS/hr):: 850
INFUSION RATE in mL/hr & then follow protocol (mL/hr):: 8.5
PTT less than or equal to 64 seconds:: Increase rate by 200 units/hr (+ 2 mL/hr)
PTT 64.1 to 72.9 seconds:: Increase rate by 100 units/hr (+ 1 mL/hr)
PTT 73 to 111 seconds:: Target Range. No change in rate.
PTT 111.1 to 130.9 seconds:: Decrease rate by 100 units/hr (- 1 mL/hr)
PTT 131 to 199.9 seconds:: HOLD for 1 hr. Then decrease rate by 200 units/hr (- 2 mL/hr)
PTT greater than or equal to 200 seconds:: HOLD for 2 hrs & Notify Provider. Then decrease by 200 units/hr (-
2 mL/hr)
Lab follow-up:: Each change, PTT q6h until 2 consecutive are therapeutic. Then PTT
daily.
07/02/25 04:[address] Non Medication Order As Directed
Physician Order: PTT 6 hours after initial start of Heparin infusion
Above order entered?: Yes
07/02/25 04:50
Admit/Transfer Patient As Directed
Co-Sign Provider:
Level of Care: Inpatient admission
Assign to:: IVU
Physician / Group: Shane
Diagnosis: NSTEMI / Angina
Reason for Hospitalization: NSTEMI / Angina
Expected length of stay greater than two midnights?: Yes
ELOS- Estimated Length of Stay in days: 3
I certify the patient meets the requirements for IP care: Yes
07/02/25 04:51
PRN Pain Medication Management As Directed
May give lesser potent ordered pain med per pt: Yes
preference::
Protocol:: Medication orders for pain may be administered in a
manner that supports deferring to patient preference
when the pt is:
- Requesting an ordered lesser potent pain medication.
Least to most potent pain medications are defined
as: acetaminophen < NSAID < tramadol < opioids
(morphine, oxycodone, hydromorphone).
- Requesting a lesser dose of the same medication IF
ORDERED.
- Requesting a less intrusive route of administration
if both routes are prescribed by the provider (PO <
IV).
07/02/25 04:57
Code Status As Directed
Resuscitation Status: Do not resuscitate
Reached after discussion with pt or family/Healthcare POA: Yes
DNR Bracelet Application ONCE
07/02/25 05:01
Troponin I Urgent
07/02/25 Breakfast
NPO
Allow oral meds: Yes
Allow clear liquids: Sips of Clears
07/02/25 06:09
Acetaminophen [Tylenol] 650 mg PO Q4HPRN PRN
Albuterol Nebs [Ventolin Nebules] 2.5 mg INH R Q4HPRN PRN
Dextrose 50%-Water [Dextrose 50% Syringe] 12.5 grams IV [id number] PRN
Glucagon [GlucaGen] 1 mg IM PRN PRN
Morphine Sulfate 2 mg IV Q4HPRN PRN
07/02/25 06:09
CARDIOLOGY CONSULT Routine
Consulting Provider: Indio Lee
Was physician already notified: No
Reason for consult: ACS / NSTEMI
Consult Notification Routine
Specialty to Notify: Cardiology
Date consulting provider notified: 07/02/25
Time consulting provider notified: 07:33
Notified:: Provider
Heparin Protocol- PTT Orders As Directed
PTT per Heparin protocol: -Obtain CBC and baseline PTT - if not already collected.
-Obtain PTT 6 hours from start of infusion. Then, every 6 hours until 2 consecutive
PTT's are therapeutic. Then, PTT Daily.
-With each rate change, obtain PTT every 6 hours until 2 consecutive PTT's are
therapeutic. Then, PTT Daily.
Activity As Directed
Activity Level: Ambulate
With Assistance
Bedside Glucose Monitoring As Directed
Frequency: AC&HS
Additional Instructions:: Change to q6h if pt on TPN, tube feeding or not eating
Bladder Scan As Directed
Follow Bladder Retention/Intermittent Cath Algorithm?: Yes
PRN if no void in __ hours: 6
Frequency: Per Retention Algorithm
If Bladder Scan Result >: 400
then:: Straight cath
EKG with chest pain [ECG as needed] As Directed
ECG as needed for:: Chest Pain
I/O [Intake/ Output] As Directed
Frequency: Per unit guidelines
Notify MD As Directed
Notify physician if: PTT is greater than or equal to 200.
Orthostatic Vital Signs As Directed
Orthostatic VS Frequency: BID
Straight Cath As Directed
Frequency: Per Retention Algorithm
Additional Instructions: straight cath as needed per acute urinary retention algorithm for 24 hrs
Additional Instructions: for bladder scan greater than 400 mL
Vital Signs As Directed
Frequency: Per unit guidelines
Oxygen Therapy [O2 Therapy] [RESP] Routine
Titrate/Wean O2 to maintain O2 sat greater than (%): 94
07/02/25 07:30
Insulin Aspart Corrective Low [Novolog Flexpen-Low Resistance] See Protocol SC AC
07/02/25 08:00
ARIPiprazole [Abilify] 5 mg PO DAILY
Ascorbic Acid [Vitamin C] 500 mg PO DAILY
Aspirin Chewable [Low Strength Aspirin] 81 mg PO DAILY
Atorvastatin [Lipitor] 80 mg PO DAILY
Azithromycin [Zithromax] 250 mg PO MoWeFr@0800
Budesonide [Pulmicort] 0.5 mg INH R BID
Bupropion(24Hr)Extended Releas [WELLBUTRIN XL (24 hour extended release)] 300 mg PO DAILY
Carvedilol [Coreg] 6.25 mg PO BID
Clopidogrel Bisulfate [Plavix] 75 mg PO DAILY
Ferrous Sulfate [Feosol] 325 mg PO DAILY
Furosemide [Lasix] 20 mg PO MoWeFr@0800
Guaifenesin [Mucinex] 600 mg PO Q12
ISOSORBIDE MONOnitrate ER [Imdur (Extended Release)] 60 mg PO DAILY
Ipratropium/Albuterol Sulfate [Duoneb] 3 ml INH R QID
Midodrine [ProAmatine] 5 mg PO TID@0800,1300,1800
Nitroglycerin [Nitro-Dur] 0.2 mg TRANSDERM DAILY
Pantoprazole [Protonix] 40 mg PO DAILY
Prednisone [Deltasone] 10 mg PO DAILY
Ranolazine Extended Release [Ranexa Extended Release] 1,000 mg PO BID
Sennosides [Senokot] 17.2 mg PO DAILY
Sertraline HCl [Zoloft] 200 mg PO DAILY
Sodium Chloride 1,000 gram PO QID
Spironolactone [Aldactone] 12.5 mg PO DAILY
07/02/25 11:55
PTT Urgent
Troponin I Q6H
07/02/25 22:00
Melatonin 3 mg PO HS
07/03/25 02:54
Glycohemoglobin (HgbA1c) IN AM
07/03/25 02:55
Basic Metabolic Panel IN AM
07/03/25 06:00
EKG [Electrocardiogram (*1)] IN AM
Reason for Study: Chest Pain
07/04/25 06:00
Complete Blood Count/No Diff Q2D
Comment: notify provider: Platelet count < 130,000 or decrease by 50% from baseline
07/06/25 06:00
Complete Blood Count/No Diff Q2D
Comment: notify provider: Platelet count < 130,000 or decrease by 50% from baseline
07/08/25 06:00
Complete Blood Count/No Diff Q2D
Comment: notify provider: Platelet count < 130,000 or decrease by 50% from baseline
07/10/25 06:00
Complete Blood Count/No Diff Q2D
Comment: notify provider: Platelet count < 130,000 or decrease by 50% from baseline
07/12/25 06:00
Complete Blood Count/No Diff Q2D
Comment: notify provider: Platelet count < 130,000 or decrease by 50% from baseline
07/14/25 06:00
Complete Blood Count/No Diff Q2D
Comment: notify provider: Platelet count < 130,000 or decrease by 50% from baseline
07/16/25 06:00
Complete Blood Count/No Diff Q2D
Comment: notify provider: Platelet count < 130,000 or decrease by 50% from baseline
07/18/25 06:00
Complete Blood Count/No Diff Q2D
Comment: notify provider: Platelet count < 130,000 or decrease by 50% from baseline
Abnormal Lab Results
07/02/25 07/02/25
03:04 05:01
RBC 3.87 L 10^6/uL
(4.70-6.10)
Hgb 11.1 L g/dL
(13.0-18.0)
Hct 36.4 L %
(39.0-52.0)
MCV 94.1 H fL
(80.0-94.0)
MCHC 30.5 L g/dL
(33.0-37.0)
RDW 16.3 H %
(11.5-14.5)
Abs Immat Gran (auto) 0.1 H 10^3/uL
(0-0.05)
Absolute Lymphs (auto) 0.8 L 10^3/uL
(1.2-3.4)
Absolute Monos (auto) 1.1 H 10^3/uL
(0.1-0.6)
Immature Gran % 0.7 H %
(0-0.5)
Lymphocytes % 9.5 L %
(20.5-51.1)
Monocytes % 13.6 H %
(1.7-9.3)
Creatinine 0.6 L mg/dL
(0.7-1.3)
Glucose 122 H mg/dl
(70-99)
Troponin I 0.070 H* D ng/ml
07/02/25 03:04
07/02/25 03:04
Vital Signs
Initial and Last Documented VS:
Initial Vital Signs
Pulse Resp
96 23
07/02/25 02:52 07/02/25 02:52
Last Documented Vital Signs
Temp Pulse Resp BP Pulse Ox
97.8 F 79 16 188/89 97
07/03/25 03:06 07/03/25 07:30 07/03/25 07:30 07/03/25 05:00 07/03/25 07:30
MDM/Problems Addressed
Differential Diagnosis Includes:
The Differential Diagnosis includes, in no particular order and is not limited to:
1. Acute Coronary Syndrome
2. Pulmonary Embolism
3. Congestive Heart Failure
4. Pneumonia
5. Chronic Obstructive Pulmonary Disease Exacerbation
6. Aortic Dissection
7. Gastroesophageal Reflux Disease
8. Costochondritis
9. Pericarditis
10. Pneumothorax
MDM/Problems Addressed:
Acute chest pain, shortness of breath.
Subacute cough for the past 3 weeks
Patient with known severe CAD with recurrent chest pain, recurrent non-STEMI's.
I have significant concern for recurrent non-STEMI.
Chest pain has improved but has not completely resolved. Blood pressure currently 155 systolic. Will trial sublingual nitroglycerin.
Consider initiation of IV heparin.
EKG shows normal sinus rhythm in the 90s, right bundle branch block, ST depression laterally which is overall similar to previous EKG June 10. There is no ST elevation, no evidence of STEMI.
He is also noted to be mildly to moderately dyspneic. Unclear if this is baseline. Concern for CHF, pneumonia, pneumothorax. Will check portable chest x-ray.
Labs are pending including troponin, BNP.
No prior history of thromboembolism. Previous CT of the chest/PE studies x 2 in May negative for PE nor dissection. PE is less likely.
Chronic conditions affecting care: DM, HTN, CAD, Cardiomyopathy, Arrhythmia, COPD and PVD
*Radiology
Radiology exam reviewed: preliminary read by ED provider (Chest x-ray shows mild hyperinflation. No evidence of CHF nor infiltrate.)
*Pulse Oximetry
SaO2: 97
Nasal Cannula flow liters per minute: 2
Patient hypoxic: no
*EKG
Interpreted by ED Provider?: Yes
Interpretation: abnormal
Comparison EKG: no changes (Unchanged from previous June 10, 2025)
Rate: normal
Rhythm: sinus
[place]: normal axis
Interval: normal interval
QRS Pattern: right bundle branch block
Ischemia: ST depression
*Life Sciences Director Interpretation
Rate: normal
Interpretation: normal
Rhythm: sinus
*Critical Care Note
Total Time (30-74mins, 75-104mins- exclusive of procedures): 30
comment:
Critical care statement: A total of 30 minutes of critical care time was provided for this patient. This includes management of unstable vital signs, evaluation of the patient at bedside, reviewing the patient's pertinent medical records, discussion
with consultants, review of old EKGs and review of pertinent medical records. This time with separate from time utilized to perform the aforementioned documented procedures
Data Reviewed
Review of Other/Old Records Reveals: Labs, Records, Radiology Studies, Testing and Discharge Summary
Source: patient, ambulance crew, shelter records, previous radiology exam and previous hospital records
Update Note
Update Note:
04:05
Patient is chest pain-free after 1 sublingual nitroglycerin.
Moderate acute hypotension after sublingual nitroglycerin, responded promptly with small IV fluid bolus.
Repeat EKG, chest pain-free, unchanged from previous.
Chest x-ray shows hyperinflation, no evidence of CHF nor infiltrate.
Labs thus far are unremarkable. Mild anemia with hemoglobin about 11 has improved from previous at 8.4.
Chemistries are unremarkable.
BNP 670, similar to previous.
Troponin 0.024. Will plan to repeat at 5 AM.
Will start IV heparin.
Will admit to hospitalist service.
ED Attending Note
-
Portions of this chart may have been created with voice recognition software.� Occasional wrong word or��sound alike� substitutions may have occurred due to the inherent limitations of voice recognition software.
Discharge Plan
Departure
Patient Disposition: Admit
Date of Disposition: 07/02/25
Time of Disposition: 04:21
Admit to: Telemetry
Admit to doctor: Shane
Presentation/result/management discussed w/ accepting MD/DO: Hospitalist
Condition: Fair
Discharge Problem:
Recurrent chest pain, Acute coronary syndrome
Interventions
Interventions:
*Risk Screen - Suicide Last Done: 07/02/25 06:18
*General Assessment Last Done: 07/02/25 02:54
*Neglect/Abuse Screening Last Done: 07/02/25 02:54
*ED- Fall Risk Assessment Last Done: 07/02/25 04:03
*ED COVID-19 Vaccine History Last Done: 07/02/25 06:18
*Nursing Disposition Last Done: 07/02/25 06:16
ED- Cardiac Assessment Last Done: 07/02/25 03:07
Discharge Date and Time
Discharge Date/Time: 07/02/25 06:17
[2025-07-02 03:11] LABS: Hematocrit 36.4 % (39.0-52.0); Hemoglobin 11.1 g/dL (13.0-18.0); Mean Corp Hgb Conc. 30.5 g/dL (33.0-37.0); Mean Corpuscular Volume 94.1 fL (80.0-94.0); Nucleated Red Blood Cells % 0 % (-); Platelet Count 279 10^3/uL (130-400); Red Cell Dist. Width 16.3 % (11.5-14.5)
[2025-07-02 03:36] LABS: ALT (SGPT) 47 U/L (0-50); AST (SGOT) 36 U/L (17-59); Albumin 4.0 g/dl (3.5-5.0); Alkaline Phosphatase 97 U/L (38-126); Blood Urea Nitrogen 13 mg/dl (9-20); Calcium 9.3 mg/dl (8.4-10.2); Carbon Dioxide 30 mmol/L (22-30); Chloride 103 mmol/L (98-107); Estimated Creatinine Clearance 109 ml/min; Glucose 122 mg/dl (70-99); Potassium 4.6 mmol/L (3.5-5.1); Sodium 137 mmol/L (135-145); Total Protein 6.7 g/dl (6.3-8.2); eGFR > 60.00
[2025-07-02] MEDS: NITROSTAT (SUBLINGUAL) 0.4 MG SL (03:36)
[2025-07-02 03:46] LABS: Troponin I 0.024 ng/ml
[2025-07-02 03:50] LABS: APTT 27.8 Sec (23.4-35.0)
[2025-07-02] MEDS: NSS 500 IV (03:50)
[2025-07-02] MEDS: HEPARIN 4000 UNITS IV (04:24)
[2025-07-02] MEDS: HEPARIN 25000 UNITS/250 ML IV (04:41)
--- NOTE | 2025-07-02 05:02 | HPS.HSE ---
Family Physician
-
Family Physician: Renan Pedroza DO
Chief Complaint
-
Chest Pain
History of Present Illness
Patient is a 70y M with PMH significant for severe ASCVD, DM-II and orthostatic hypotension who presents to ED complaining of chest pain. Patient states that he woke at 2AM this morning with left-sided chest pain radiating into his L arm. He
deneis any associated diaphoresis, nausea, SOB, etc. He has had similar symptoms many times in the past and has been admitted for NSTEMI here at multiple times in the past year.
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 Intervention was felt to be too high risk and patient has been treated medically since.
He had fall with hip fracture and underwent left hip hemiarthroplasty on 05/25.
He was last admitted 06/09 - 06/11, [facility] for NSTEMI / ACS.
At the time of my examination, patient states that he is chest pain free. He c/o some SOB and is noted to have evident 'purse-lipped' breathing.
Medical History
Past Medical History
Past Medical History: Reports Other
Additional Past Medical History:
Coronary artery disease
Right carotid stenosis
Abdominal aortic aneurysm
Chronic HFpEF
Duodenal ulcer
Type 2 diabetes
COPD
Chronic Hypoxemic Respiratory Failure (3 lpm)
GERD
Hyperlipidemia
Hypertension
Atrial flutter
Orthostatic Hypotension
Past Surgical History: Reports Other
Additional Past Surgical History:
AAA repair
Femoral endarterectomy
Lap duncan
Coronary artery bypass graft x 4
A-Flutter ablation
Left Hip Hemiarthroplasty
Social History
Tobacco: Former Smoker
Alcohol: Former
Drug: None
Living: Penitentiary
Family History
Family History: Not pertinent
Allergies / Home Medications
Allergies reflects when Allergies were last updated in [email or web address].
Home Medications with original date entered in [email or web address]
Allergy/Medication List:
Allergies
Allergy/AdvReac Type Severity Reaction Status Date / Time
lisinopril Allergy throat Verified 07/02/25 02:53
closes
Home Medications
atorvastatin 80 mg tablet 80 mg PO DAILY High cholesterol 07/02/23
ipratropium 0.5 mg-albuterol 3 mg (2.5 mg base)/3 mL nebulization soln 3 ml inhalation R QIDPRN PRN SOB 07/02/23
pantoprazole 40 mg tablet,delayed release 40 mg PO DAILY Gastrointestinal issue 07/02/23
tamsulosin 0.4 mg capsule 0.4 mg PO DAILY BPH 07/02/23
prednisone 10 mg tablet 10 mg PO DAILY Anti-inflammatory #0 tabs 09/10/23
acetaminophen 325 mg tablet 650 mg PO Q4HPRN PRN mild pain/fever 12/08/24
bisacodyl 10 mg rectal suppository 10 mg SC [id number] PRN if mom ineffective 12/08/24
magnesium hydroxide 400 mg/5 mL oral suspension (Milk of Magnesia) 30 ml PO HSPRN PRN constipation 12/08/24
fluticasone propionate 50 mcg/actuation nasal spray,suspension 2 spray intranasal DAILYPRN PRN allergies 02/23/25
budesonide 0.5 mg/2 mL suspension for nebulization 0.5 mg inhalation R BID COPD 04/13/25
insulin aspart U-100 100 unit/mL (3 mL) subcutaneous pen 3 unit (0.03 mL) SC AC Diabetes #0 mL 04/16/25
nitroglycerin 0.2 mg/hr transdermal 24 hour patch 0.2 mg transdermal DAILY #0 ea 04/16/25
ascorbic acid (vitamin C) 500 mg tablet (Vitamin C) 500 mg PO DAILY Supplement #0 tabs 04/18/25
bupropion HCl 300 mg 24 hr tablet, extended release 300 mg PO DAILY Depression #0 tabs 04/18/25
dextromethorphan-guaifenesin 30 mg-600 mg tablet extended [id number] hr (Mucinex DM) 1 tab PO Q12H Congestion #0 tabs 04/18/25
furosemide 20 mg tablet 20 mg PO MOWEFR Fluid retention/Swelling #0 tabs 04/18/25
insulin glargine 100 unit/mL subcutaneous solution (Lantus U-100 Insulin) 7 unit (0.07 mL) SC HS Diabetes #0 mL 04/18/25
melatonin 3 mg tablet 3 mg PO HS Sleep #0 tabs 04/18/25
polyethylene glycol 3350 17 gram oral powder packet 17 g PO DAILY Constipation #0 ea 04/18/25
potassium chloride 20 mEq tablet,extended release(part/cryst) 20 meq PO DAILY Electrolyte Repletion #0 tabs 04/18/25
spironolactone 25 mg tablet 12.5 mg (1/2 x 25 mg) PO DAILY Heart disease/condition #0 tabs 04/18/25
sertraline 100 mg tablet 200 mg PO DAILY depression/anxiety 05/07/25
sodium chloride 1 gram tablet 1,000 mg PO QID Supplement 05/07/25
carvedilol 12.5 mg tablet 12.5 mg PO BID #60 tabs 05/10/25
ranolazine 500 mg tablet,extended release,12 hr 1,000 mg (2 x 500 mg) PO BID #120 tabs 05/10/25
azithromycin 250 mg tablet 250 mg PO MOWEFR nursing home 05/24/25
clopidogrel 75 mg tablet 75 mg PO DAILY Blood Clot Prevention/Tx 05/25/25
lorazepam 0.5 mg tablet 0.5 mg PO TIDPRN PRN sleep/anxiety #6 tabs 05/30/25
oxycodone 5 mg tablet 5 mg PO Q4HPRN PRN severe pain #10 tabs 05/30/25
ferrous sulfate 325 mg (65 mg iron) tablet 325 mg PO DAILY Supplement 06/09/25
sennosides 8.6 mg tablet (senna) 17.2 mg PO DAILY Constipation 06/09/25
isosorbide mononitrate 60 mg tablet,extended release 24 hr 60 mg PO DAILY #30 tabs 06/11/25
midodrine 5 mg tablet 5 mg PO TID@0800,1300,1800 #90 tabs 06/11/25
Review of Systems
-
History Source: Patient
A 12 point ROS was completed and negative except as noted: Yes
Constitutional: Reports Fatigue; Denies Fever or Chills
EENT: Denies Sore Throat
Respiratory: Reports Cough and Trouble Breathing
Cardiac: Reports Chest Pain; Denies Diaphoresis, Palpitations or Syncope
Abdomen/GI: Denies Abdominal Pain, Nausea, Vomiting or Diarrhea
: Denies Dysuria, Frequency or Flank Pain
Musculoskeletal: Denies Joint Pain or Edema
Neurological: Denies Dizzy or Headache
Physical Exam
Vital Signs
Vital Signs
Temp Pulse Resp BP Pulse Ox
98.8 F 90 22 133/88 99
07/02/25 02:54 07/02/25 04:45 07/02/25 04:45 07/02/25 04:30 07/02/25 04:15
Physical Exam
General: Other (70y M in mild distress due to dyspnea.)
HEENT: Moist mucous membranes and PERRLA
Respiratory: Other (Coarse upper airway sounds - lung weiss are clear.)
Cardiac: S1/S2 and Regular Rhythm; No Murmur
GI: Soft, Non Tender, Non Distended and Normal Bowel Sounds
Musculoskeletal: No Clubbing, No Cyanosis and No Edema
Neuro: AO x 3
Laboratory Results
-
07/02/25 03:04
07/02/25 03:04
Laboratory Results
APTT 27.8 Sec (23.4-35.0) 07/02/25 03:32
Total Bilirubin 0.5 mg/dl (0.2-1.3) 07/02/25 03:04
AST 36 U/L (17-59) 07/02/25 03:04
ALT 47 U/L (0-50) 07/02/25 03:04
Alkaline Phosphatase 97 U/L (38-126) 07/02/25 03:04
Troponin I 0.024 ng/ml 07/02/25 03:04
Impression/Plan
-
A/P: Patient is a 70y M with PMH significant for severe ASCVD, DM-II and orthostatic hypotension who presents to ED complaining of chest pain.
NSTEMI / ACS
ASCVD
- Admit for further evaluation and treatment.
- Continue Heparin infusion.
- Follow serial troponin and monitor for any recurrent chest discomfort.
- EKG in the ED today with non-specific ST-T changes in the anterolateral leads. Previous lateral ST depressions no longer evident.
- Upon review of [place] DEC, it does not appear that patient has been on ASA.
- Resume ASA. Continue Plavix.
- Continue other current CV regimen / anti-anginal medications.
- Cardiology evaluation for additional recommendations.
Orthostatic Hypotension
- CV med titrations have been limited by hypotension / lightheadedness / etc.
- Decrease carvedilol dose for now (outpatient notes recommend increase from 3.125 to 6.25; however, he is / has been on 12.5?).
- Stop tamsulosin to decrease risk of orthostasis.
- Continue midodrine and titrate as needed.
- Compression stockings.
COPD with Chronic Hypoxemic Respiratory Failure
- Patient on chronic prednisone and 3 lpm of O2.
- Continue current regimen including prednisone, inhaled medications, etc.
- Titrate O2 support as needed.
- Nebs ATC and PRN.
DM-II
- Stable. Hold low-dose standing insulin for now.
- Follow glucose and cover with SSI as needed.
Chronic HFpEF
- Stable. Patient does not appear grossly volume overloaded.
- Continue current furosemide / spironolactone doses for now.
- Follow I/Os, daily weights, etc.
- Adjust regimen as needed.
- Follow labs (potassium) for changes.
Anxiety / Depression
- Stable. Continue current medications.
GERD
- Stable. Continue PPI.
BPH
- Stop tamsulosin as noted above given risk of worsening orthostasis.
- Bladder scan protocol.
DVT Prophylaxis: On IV heparin at present.
Code Status: DNR
[2025-07-02 06:09] LABS: Troponin I 0.070 ng/ml
--- NOTE | 2025-07-02 06:41 | PTCARENOTE ---
received pt from ED, Ox3, denies pain, wheelchair bound, afebrile, NSR on the monitor, + pulses, lungs diminished and coarse, 2LNC sats 97%, moist non productive cough, BSx4, chronic mason c yellow output, stage 1 gluteal cleft foamed, bruising on
left buttocks, dressing on L upper arm dry and intact, 20G LFA, Hep gtt 850 units, call kuhn within reach.
[2025-07-02] MEDS: PULMICORT 0.5 MG INH ×2 (07:42→19:53)
[2025-07-02] MEDS: DUONEB 3 ML INH ×4 (07:42→19:53)
--- NOTE | 2025-07-02 08:00 | PTCARENOTE ---
Received pt sleeping.Awakens to voice.Unsure of place.Reorients easily.+ANDINO.Denies pain.Refuses to get OOB at this time.SR with BBB noted.Heparin gtt infusing.Coarse diminished breath sounds throughout.Occasional moist non productive cough noted.O2
2l NC.POX 95%.NPO.No BM.Vogel draining yellow urine.Skin integrity as documented.Plan of care discussed.
[2025-07-02] MEDS: ZOLOFT 200 MG PO (08:23)
[2025-07-02] MEDS: FEOSOL 325 MG PO (08:23)
[2025-07-02] MEDS: COREG 6.25 MG PO ×2 (08:23→20:54)
[2025-07-02] MEDS: ABILIFY 5 MG PO (08:28)
[2025-07-02] MEDS: NITRO-DUR 0.2 MG TRANSDERM (08:28)
[2025-07-02] MEDS: DELTASONE 10 MG PO (08:29)
[2025-07-02] MEDS: IMDUR (EXTENDED RELEASE) 60 MG PO (08:29)
[2025-07-02] MEDS: SENOKOT 17.2 MG PO (08:29)
[2025-07-02] MEDS: PROTONIX 40 MG PO (08:29)
[2025-07-02] MEDS: PLAVIX 75 MG PO (08:29)
[2025-07-02] MEDS: LIPITOR 80 MG PO (08:29)
[2025-07-02] MEDS: WELLBUTRIN XL (24 hour extended release) 300 MG PO (08:29)
[2025-07-02] MEDS: MUCINEX 600 MG PO ×2 (08:29→20:56)
[2025-07-02] MEDS: VITAMIN C 500 MG PO (08:30)
[2025-07-02] MEDS: LOW STRENGTH ASPIRIN 81 MG PO (08:30)
[2025-07-02] MEDS: NOVOLOG FLEXPEN-LOW RESISTANCE SC (08:31)
[2025-07-02] MEDS: LASIX 20 MG PO (08:34)
[2025-07-02] MEDS: RANEXA EXTENDED RELEASE 1000 MG PO ×2 (08:53→20:54)
[2025-07-02] MEDS: ALDACTONE 12.5 MG PO (08:53)
--- NOTE | 2025-07-02 09:39 | W.PN.HOSP.TC ---
Today's Communication/Plan
-
Cardiology evaluation
Assessment / Plan
Assessment / Plan
Physical exam:
General: Well Developed, Well Nourished and No Apparent Distress
HEENT: Normocephalic, Atraumatic and Moist Mucous Membranes
Respiratory: Clear to Auscultation; Negative Wheezes, Rales or Rhonchi
Cardiac: Regular Rhythm and S1/S2
GI: Soft, Nontender and Nondistended
Musculoskeletal: No Clubbing, No Cyanosis and No Edema
Neuro: Awake, Alert and Oriented
Psych: Calm
A/P:
NSTEMI / ACS
ASCVD
- Admit for further evaluation and treatment.
- Continue Heparin infusion.
- Follow serial troponin and monitor for any recurrent chest discomfort.
- EKG in the ED today with non-specific ST-T changes in the anterolateral leads. Previous lateral ST depressions no longer evident.
- Upon review of [place] DEC, it does not appear that patient has been on ASA.
- Resume ASA. Continue Plavix.
- Continue other current CV regimen / anti-anginal medications.
- Cardiology evaluation for additional recommendations.
- Discussed with family at bedside today
Orthostatic Hypotension
- CV med titrations have been limited by hypotension / lightheadedness / etc.
- Decrease carvedilol dose for now (outpatient notes recommend increase from 3.125 to 6.25; however, he is / has been on 12.5?).
- Stop tamsulosin to decrease risk of orthostasis.
- Continue midodrine and titrate as needed.
- Compression stockings.
COPD with Chronic Hypoxemic Respiratory Failure
- Patient on chronic prednisone and 3 lpm of O2.
- Continue current regimen including prednisone, inhaled medications, etc.
- Titrate O2 support as needed.
- Nebs ATC and PRN.
DM-II
- Stable. Hold low-dose standing insulin for now.
- Follow glucose and cover with SSI as needed.
Chronic HFpEF
- Stable. Patient does not appear grossly volume overloaded.
- Continue current furosemide / spironolactone doses for now.
- Follow I/Os, daily weights, etc.
- Adjust regimen as needed.
- Follow labs (potassium) for changes.
Anxiety / Depression
- Stable. Continue current medications.
GERD
- Stable. Continue PPI.
BPH
- Stop tamsulosin as noted above given risk of worsening orthostasis.
- Bladder scan protocol.
DVT Prophylaxis: On IV heparin at present.
Code Status: DNR
Anticipated Discharge: 24 - 48 hours
Subjective/Interval History
-
Date of Service: July 02, 2025
Patient currently denies any chest pain or shortness of breath at rest.
Objective Data
-
Labs:
Laboratory Results
07/02/25 07/02/25 07/02/25
03:04 03:32 10:45
WBC 8.1
Hgb 11.1 L
Hct 36.4 L
Plt Count 279
APTT 27.8 Pending
Sodium 137
Potassium 4.6
Chloride 103
Carbon Dioxide 30
BUN 13
Creatinine 0.6 L
Glucose 122 H
Calcium 9.3
Total Bilirubin 0.5
AST 36
ALT 47
Alkaline Phosphatase 97
Vital Signs:
Vital Signs
Temp Pulse Resp BP Pulse Ox
97.7 F 91 22 150/83 98
07/02/25 08:00 07/02/25 08:23 07/02/25 07:44 07/02/25 08:30 07/02/25 07:44
[2025-07-02] MEDS: ZITHROMAX 250 MG PO (10:16)
[2025-07-02] MEDS: SODIUM CHLORIDE 1 GRAM PO ×4 (10:16→20:56)
--- NOTE | 2025-07-02 12:00 | PTCARENOTE ---
Pt assessed.No change in assessment noted.Tolerating cholesterol lowering diet.
[2025-07-02 12:04] LABS: Glucose - Point of Care 158 mg/dl (70-99)
[2025-07-02 12:14] LABS: APTT 48.9 Sec (23.4-35.0)
[2025-07-02] MEDS: NOVOLOG FLEXPEN-LOW RESISTANCE 1 UNITS SC (12:25)
[2025-07-02 12:30] LABS: Troponin I 0.071 ng/ml
--- NOTE | 2025-07-02 14:28 | CM ---
Addendum entered by Rimma Gallardo 07/02/25 14:40:
Also has a W/CH.
Original Note:
Initial assessment completed with patient who lives LTC in private room at [facility]. 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 Requires O2 continuously at 3L. Does receive PT daily. Does have a HC-POA. No
VA benefits. No psychiatric hospitalizations. PCP is Dr. Renan Pedroza. Pharmacy is [facility] with [facility]. Discharge POC: Return to [facility]. Referral forwarded.
--- NOTE | 2025-07-02 15:04 | CON.CAR ---
Addendum entered and electronically signed by Kris Rojo MD 07/02/25 16:23:
I saw and examined the patient.
The OB GYN PHYSICIAN ASSISTANT or PA's note was reviewed and I agree with the note.
Comment: General: Well developed, well nourished in NAD.
Neck: Supple, no JVD, HJR, carotids +2 B/L, no bruits bilaterally.
Heart: Non displaced PMI, RRR, no murmurs, No S3, S4, no rubs.
Lungs: Scattered rhonchi
Extremities: No clubbing, cyanosis or edema bilaterally.
Neuro: Grossly nonfocal, awake, alert and oriented x3.
Gonzalo has a history of CAD felt to be not amenable to revascularization with multiple admissions for angina. He presents with chest discomfort and elevated troponin. He denies chest pain at the present time. He is currently on IV heparin. Will
double Imdur dose and assess response.
Original Note:
Consultation
Consultation Request
Date/Time Consultation Requested: 07/02/2025 at 0609
Date/Time Consultation Performed: 07/02/2025 at 0840
Requesting Provider: Dr. Cuevas
Performing Provider: Dr. Rojo
Reason for Consultation: Chest pain
Medical History
-
History of Present Illness:
Patient came to the ER very early this morning with chest pain and cardiology is now consulted. Patient has been to the hospital 6 times for chest pain, heart failure and a hip fracture over the last 8 months. Patient has known CAD and does not
have many options due to OM lesion being distal to JONO graft and ANAM grafts are prone to dissection and tortuosity and force will be required to deliver equipment which may increase this risk and if a complication occurs there would be limited
treatment options. The OM is not small but is also not comparable to the LAD in vascular territory or myocardium supplied. Initial troponin this admission was 0.070 and then 0.071. Patient was admitted and started on heparin gtt.
PMH:
Recent admission for fall and hip fracture plus NSTEMI 05/24/2025 until 05/31/2025
CAD
s/p CABG 1998 at [facility] with GAR to LAD and free JONO Y graft from GAR to OM
cath showed progression of [place] CAD however patient bypass grafts 12/2019
cath 03/2025 with new OM lesion, felt to be high risk for intervention, medically managed
NSTEMI 05/26/25
History of recovered ischemic cardiomyopathy, EF 50 to 55% by echo 11/2024
Chronic HFpEF
h/o NSVT
Chronic orthostatic hypotension
Sinus tachycardia
Paroxysmal atrial flutter
s/p ablation in 2017Paroxysmal atrial fibrillation
diagnosed during 12/2019 admission without known recurrence
Not chronically anticoagulated due to patient's choice and low burden of atrial arrhythmia
PVD
h/o endovascular AAA repair and bilateral femoral artery endarterectomy and profundoplasty 07/2018
Type 2 diabetes
Hypertension
Hypercholesterolemia
Chronic right bundle-branch block
COPD on chronic supp O2, 3L
History of duodenal ulcer with microperforation in 2018
h/o daily ETOH use now abstinent
Former smoker
DNR
ECHO 09/06/23: Definity used, EF 45 to 50%, global hypokinesis, stage I diastolic dysfunction, mild MR, trace TR, PAP 25 to 30 mmHg
Echo 12/11/2024: EF 50 to 55%, no regional wall motion abnormalities, mild concentric LVH, no significant valvular disease
Echo 02/23/2025: EF 50%, mild to moderate concentric LVH, no significant valvular disease
Cath 04/17/25: GAR-LAD patent, JONO Y-graft GAR to OM with 95% distal stenosis.
Plan:
-
Past Medical History
Past Medical History: Other (in HPI)
Past Surgical History: Cardiac (CABG 1998, atrial flutter ablation 2017), Cholecystectomy, Tonsilectomy and Other (endovascular AAA repair 2016)
Social History
Tobacco: Former Smoker
Alcohol: None (he says he stopped drinking)
Drug: None
Personal: Single
Living: Snf (long-term at [facility])
Family History
Family History: CAD and Cancer (lung cancer)
Allergies / Home Medications
Allergy/AdvReac Type Severity Reaction Status Date / Time
lisinopril Allergy throat Verified 07/02/25 02:53
closes
�Medication �Instructions �Recorded �Confirmed �Type
atorvastatin 80 mg tablet 80 mg PO DAILY High cholesterol 07/02/23 07/02/25 History
ipratropium 0.5 mg-albuterol 3 mg 3 ml inhalation R QIDPRN PRN SOB 07/02/23 07/02/25 History
(2.5 mg base)/3 mL nebulization
soln
pantoprazole 40 mg tablet,delayed 40 mg PO DAILY Gastrointestinal 07/02/23 07/02/25 History
release issue
tamsulosin 0.4 mg capsule 0.4 mg PO QPM BPH 07/02/23 07/02/25 History
prednisone 10 mg tablet 10 mg PO DAILY Anti-inflammatory 09/10/23 07/02/25 Rx
#0 tabs
acetaminophen 325 mg tablet 650 mg PO Q4HPRN PRN mild 12/08/24 07/02/25 History
pain/fever
bisacodyl 10 mg rectal suppository 10 mg AZ [id number] PRN if mom 12/08/24 07/02/25 History
ineffective
magnesium hydroxide 400 mg/5 mL 30 ml PO HSPRN PRN constipation 12/08/24 07/02/25 History
oral suspension (Milk of Magnesia)
fluticasone propionate 50 2 spray intranasal DAILYPRN PRN 02/23/25 07/02/25 History
mcg/actuation nasal allergies
spray,suspension
budesonide 0.5 mg/2 mL suspension 0.5 mg inhalation R BID COPD 04/13/25 07/02/25 History
for nebulization
insulin aspart U-100 100 unit/mL 3 unit (0.03 mL) SC AC Diabetes #0 04/16/25 07/02/25 Rx
(3 mL) subcutaneous pen mL
nitroglycerin 0.2 mg/hr 0.2 mg transdermal DAILY #0 ea 04/16/25 07/02/25 Rx
transdermal 24 hour patch
ascorbic acid (vitamin C) 500 mg 500 mg PO DAILY Supplement #0 tabs 04/18/25 07/02/25 Rx
tablet (Vitamin C)
bupropion HCl 300 mg 24 hr tablet, 300 mg PO DAILY Depression #0 tabs 04/18/25 07/02/25 Rx
extended release
dextromethorphan-guaifenesin 30 1 tab PO Q12H Congestion #0 tabs 04/18/25 07/02/25 Rx
mg-600 mg tablet extended
[id number] hr (Mucinex DM)
furosemide 20 mg tablet 20 mg PO MOWEFR Fluid 04/18/25 07/02/25 Rx
retention/Swelling #0 tabs
insulin glargine 100 unit/mL 7 unit (0.07 mL) SC HS Diabetes #0 04/18/25 07/02/25 Rx
subcutaneous solution (Lantus mL
U-100 Insulin)
melatonin 3 mg tablet 3 mg PO HS Sleep #0 tabs 04/18/25 07/02/25 Rx
polyethylene glycol 3350 17 gram 17 g PO DAILY Constipation #0 ea 04/18/25 07/02/25 Rx
oral powder packet
potassium chloride 20 mEq 20 meq PO DAILY Electrolyte 04/18/25 07/02/25 Rx
tablet,extended release(part/cryst) Repletion #0 tabs
spironolactone 25 mg tablet 12.5 mg (1/2 x 25 mg) PO DAILY 04/18/25 07/02/25 Rx
Heart disease/condition #0 tabs
sertraline 100 mg tablet 200 mg PO DAILY depression/anxiety 05/07/25 07/02/25 History
sodium chloride 1 gram tablet 1,000 mg PO QID Supplement 05/07/25 07/02/25 History
carvedilol 12.5 mg tablet 12.5 mg PO BID #60 tabs 05/10/25 07/02/25 Rx
ranolazine 500 mg tablet,extended 1,000 mg (2 x 500 mg) PO BID #120 05/10/25 07/02/25 Rx
release,12 hr tabs
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
clopidogrel 75 mg tablet 75 mg PO DAILY Blood Clot 05/25/25 07/02/25 History
Prevention/Tx
lorazepam 0.5 mg tablet 0.5 mg PO TIDPRN PRN sleep/anxiety 05/30/25 07/02/25 Rx
#6 tabs
ferrous sulfate 325 mg (65 mg 325 mg PO DAILY Supplement 06/09/25 07/02/25 History
iron) tablet
sennosides 8.6 mg tablet (senna) 17.2 mg PO BID Constipation 06/09/25 07/02/25 History
isosorbide mononitrate 60 mg 60 mg PO DAILY #30 tabs 06/11/25 07/02/25 Rx
tablet,extended release 24 hr
midodrine 5 mg tablet 5 mg PO TID@0800,1300,1800 #90 tabs 06/11/25 07/02/25 Rx
oxycodone 5 mg tablet 5 mg PO Q8HPRN PRN severe pain 07/02/25 07/02/25 History
sodium phosphates 19 gram-7 118 ml [place] DAILYPRN PRN if no bm 07/02/25 07/02/25 History
gram/118 mL enema (Fleet Enema) aftr dulcolax
Review of Systems
-
History Source: Patient
All other systems: Negative unless noted
Physical Exam
Vital Signs
Temp Pulse Resp BP Pulse Ox
98.4 F 96 29 84/60 95
07/02/25 12:00 07/02/25 13:45 07/02/25 13:45 07/02/25 14:38 07/02/25 13:45
GEN: NAD. AAOx3
HEENT: EOMI
LUNGS: 1 L NC. Clear anterolaterally
CV: Reg, S1/S2, / syst LSB, no gallop
ABD: soft, BS+, NT, ND
EXT: No edema B/L LE
NEURO: Gross non-focal
SKIN: No rash
Lab Results
07/02/25 03:04
07/02/25 03:04
Troponin I 0.071 ng/ml H* 07/02/25 11:55
Biv-J-Bzmgwdsdkbb Pept 673 pg/ml 07/02/25 03:04
Impression / Plan
-
Primary Cartographic Drafter: Dr. MILA Woo
Impression:
Admitted with recurrent chest pain and elevated Troponin 07/02/25
CAD
s/p CABG 1998 at [facility] with GAR to LAD and free JONO Y graft from GAR to OM
cath showed progression of [place] CAD however patient bypass grafts 12/2019
cath 03/2025 with new OM lesion, felt to be high risk for intervention, medically managed
NSTEMI 05/26/25
History of recovered ischemic cardiomyopathy, EF 50 to 55% by echo 11/2024
Chronic HFpEF
h/o NSVT
Chronic orthostatic hypotension
Sinus tachycardia
Paroxysmal atrial flutter
s/p ablation in 2017Paroxysmal atrial fibrillation
diagnosed during 12/2019 admission without known recurrence
Not chronically anticoagulated due to patient's choice and low burden of atrial arrhythmia
PVD
h/o endovascular AAA repair and bilateral femoral artery endarterectomy and profundoplasty 07/2018
Type 2 diabetes
Hypertension
Hypercholesterolemia
Chronic right bundle-branch block
COPD on chronic supp O2, 3L
History of duodenal ulcer with microperforation in 2017
h/o daily ETOH use now abstinent
Former smoker
h/o fall and hip fracture plus NSTEMI 05/24/2025 until 05/31/2025
DNR
ECHO 09/06/23: Definity used, EF 45 to 50%, global hypokinesis, stage I diastolic dysfunction, mild MR, trace TR, PAP 25 to 30 mmHg
Echo 12/11/2024: EF 50 to 55%, no regional wall motion abnormalities, mild concentric LVH, no significant valvular disease
Echo 02/23/2025: EF 50%, mild to moderate concentric LVH, no significant valvular disease
Cath 04/17/25: GAR-LAD patent, JONO Y-graft GAR to OM with 95% distal stenosis.
Plan:
-Patient came to the ER very early this morning with chest pain and cardiology is now consulted. Patient has been to the hospital 6 times for chest pain, heart failure and a hip fracture over the last 8 months. Patient has known CAD and does not
have many options due to OM lesion being distal to JONO graft and ANAM grafts are prone to dissection and tortuosity and force will be required to deliver equipment which may increase this risk and if a complication occurs there would be limited
treatment options. The OM is not small but is also not comparable to the LAD in vascular territory or myocardium supplied. Initial troponin this admission was 0.070 and then 0.071. Patient was admitted and started on heparin gtt.
-ECG reviewed by me is SR with nonspecific ST changes
-Initial troponin 0.070 and then 0.071 and this is on the low side, during his last admission the troponin was up to 0.398.
-Patient with known CAD and does not have many options due to OM lesion being distal to JONO graft and ANAM grafts are prone to dissection and tortuosity and force will be required to deliver equipment which may increase this risk and if a
complication occurs there would be limited treatment options. The OM is not small but is also not comparable to the LAD in vascular territory or myocardium supplied.
-Plan is for ongoing medical management. Medical management has at times been limited due to hypotension. Outpatient dose of midodrine 5 mg TID has also been continued
-Outpatient dose of Ranexa 1000 mg BID has been continued
-Outpatient regimen of Imdur ER 60 mg daily has been continued and plus patient is also on Nitro-Dur 0.2 mg/HR patch.
-Outpatient dose of Coreg 12.5 mg BID has been continued
-Outpatient dose of Lasix 20 mg MWF has been be continued
-Outpatient dose of spironolactone 12.5 mg daily has been continued
-Aspirin 81 mg daily was not on his outpatient medication list and has been added back by hospitalist attending.
-Outpatient dose of Plavix 75 mg daily has been continued
-LDL 47 on last check 06/10/2025 and outpatient dose of atorvastatin 80 mg daily has been continued
-Patient is not a candidate for cardiac rehab as he chronically lives in a custodial and is chair bound due to orthostasis
--- NOTE | 2025-07-02 17:00 | PTCARENOTE ---
Pt assessed.No change in assessment noted.
[2025-07-02] MEDS: NOVOLOG FLEXPEN-LOW RESISTANCE 2 UNITS SC (18:06)
[2025-07-02 18:08] LABS: Glucose - Point of Care 218 mg/dl (70-99)
[2025-07-02 18:54] LABS: APTT 51.9 Sec (23.4-35.0)
[2025-07-02] MEDS: MELATONIN 3 MG PO (20:56)
[2025-07-02 21:14] LABS: Glucose - Point of Care 176 mg/dl (70-99)
--- NOTE | 2025-07-02 22:57 | PTCARENOTE ---
Ox3 forgetful @ x's, able to make needs known, Sinus on the monitor c BBB, + pulses, B/L teds, lungs diminished and coarse, moist non productive cough, 97% on 2L, BSx4, Vogel c yellow output, skin per worklist, 20G LFA, Hep gtt per worklist, CHG
bath, call kuhn within reach, otherwise refer to documentation.
[2025-07-03] VITALS (34 sets, daily range): BP systolic 82–188; BP diastolic 60–132; PULSE 85–86; O2SAT 95–98; BMI 24.1
[2025-07-03] MEDS: HEPARIN 25000 UNITS/250 ML IV (02:56)
[2025-07-03 03:26] LABS: APTT 91.1 Sec (23.4-35.0)
[2025-07-03 03:37] LABS: Blood Urea Nitrogen 19 mg/dl (9-20); Calcium 8.8 mg/dl (8.4-10.2); Carbon Dioxide 30 mmol/L (22-30); Chloride 103 mmol/L (98-107); Estimated Creatinine Clearance 106 ml/min; Glucose 132 mg/dl (70-99); Potassium 4.3 mmol/L (3.5-5.1); Sodium 136 mmol/L (135-145); eGFR > 60.00
[2025-07-03 03:50] LABS: Troponin I 0.040 ng/ml
[2025-07-03] MEDS: TYLENOL 650 MG PO ×2 (05:16→22:52)
[2025-07-03] MEDS: DUONEB 3 ML INH ×4 (07:24→21:42)
[2025-07-03] MEDS: PULMICORT 0.5 MG INH ×2 (07:25→21:43)
[2025-07-03 08:20] LABS: Glucose - Point of Care 127 mg/dl (70-99)
[2025-07-03] MEDS: NOVOLOG FLEXPEN-LOW RESISTANCE SC (08:23)
[2025-07-03] MEDS: SENOKOT 17.2 MG PO (08:23)
[2025-07-03] MEDS: RANEXA EXTENDED RELEASE 1000 MG PO ×2 (08:23→20:54)
[2025-07-03] MEDS: ZOLOFT 200 MG PO (08:23)
[2025-07-03] MEDS: COREG 6.25 MG PO ×2 (08:24→20:54)
[2025-07-03] MEDS: LIPITOR 80 MG PO (08:24)
[2025-07-03] MEDS: ABILIFY 5 MG PO (08:25)
[2025-07-03] MEDS: DELTASONE 10 MG PO (08:25)
[2025-07-03] MEDS: IMDUR (EXTENDED RELEASE) 120 MG PO (08:25)
[2025-07-03] MEDS: PROTONIX 40 MG PO (08:25)
[2025-07-03] MEDS: ALDACTONE 12.5 MG PO (08:25)
[2025-07-03] MEDS: LOW STRENGTH ASPIRIN 81 MG PO (08:25)
[2025-07-03] MEDS: SODIUM CHLORIDE 1 GRAM PO ×4 (08:25→22:31)
[2025-07-03] MEDS: FEOSOL 325 MG PO (08:25)
[2025-07-03] MEDS: MUCINEX 600 MG PO ×2 (08:25→20:56)
[2025-07-03] MEDS: WELLBUTRIN XL (24 hour extended release) 300 MG PO (08:25)
[2025-07-03] MEDS: PLAVIX 75 MG PO (08:25)
[2025-07-03] MEDS: VITAMIN C 500 MG PO (08:25)
[2025-07-03] MEDS: NITRO-DUR 0.2 MG TRANSDERM (08:26)
--- NOTE | 2025-07-03 08:47 | PTCARENOTE ---
Received pt @ change of shift. Pt. AAOx3, forgetful @ x's; wheelchair @ baseline, but pt. reports walks @ x's. SR w BBB on monitor. SPO2 95% on 2LNC. 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 +BS, abd soft/round; tolerating diet. Inc BM, smears per nightshift.
Chronic mason in place draining yellow urine. #20 L FA w heparin gtt- see flow sheet. Pt. assisted w active repositioning in bed and bed placed in chair position; tolerating position. 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
Darrel and cont to medically manage. Pt. instructed on how to report care concerns and call kuhn placed w in reach.
[2025-07-03 10:37] LABS: Glycohemoglobin (HgbA1c) 6.3 % (4.0-5.6)
[2025-07-03 10:37] LABS: APTT 144.4 Sec (23.4-35.0)
--- NOTE | 2025-07-03 11:46 | PTCARENOTE ---
pt. assisted x 2 w RW OOB to BSC and then OOB to chair; generalized weakness w unsteady gait; heavy partial assist. Pt. tolerated activity; PT/OT aware and @ bedside @ this time to eval pt. Heparin gtt managed per orders- see flow sheet.
[2025-07-03 12:08] LABS: Glucose - Point of Care 276 mg/dl (70-99)
--- NOTE | 2025-07-03 12:11 | W.PN.HOSP.TC ---
Today's Communication/Plan
-
Anti-ischemic regimen. PT eval.
Assessment / Plan
Assessment / Plan
Physical exam:
General: Well Developed, Well Nourished and No Apparent Distress
HEENT: Normocephalic, Atraumatic and Moist Mucous Membranes
Respiratory: Clear to Auscultation; Negative Wheezes, Rales or Rhonchi
Cardiac: Regular Rhythm and S1/S2
GI: Soft, Nontender and Nondistended
Musculoskeletal: No Clubbing, No Cyanosis and No Edema
Neuro: Awake, Alert and Oriented
Psych: Calm
A/P:
NSTEMI / ACS
ASCVD
Stopping heparin drip per cardiology
Continue current anti-ischemic regimen
Cardiology consult appreciated
PT OT eval
Cardiology clearing for discharge tomorrow if he does well over the next 24 hours
Orthostatic Hypotension
Continue midodrine
Limits medical therapy
COPD with Chronic Hypoxemic Respiratory Failure
- Patient on chronic prednisone and 3 lpm of O2.
- Continue current regimen including prednisone, inhaled medications, etc.
- Titrate O2 support as needed.
- Nebs ATC and PRN.
DM-II
- Stable. Hold low-dose standing insulin for now. Hemoglobin A1c 6.3
- Follow glucose and cover with SSI as needed.
Chronic HFpEF
- Stable. Patient does not appear grossly volume overloaded.
- Continue current furosemide / spironolactone doses for now.
- Follow I/Os, daily weights, etc.
- Adjust regimen as needed.
- Follow labs (potassium) for changes.
Anxiety / Depression
- Stable. Continue current medications.
GERD
- Stable. Continue PPI.
BPH
- Stop tamsulosin as noted above given risk of worsening orthostasis.
- Bladder scan protocol.
DVT Prophylaxis: On IV heparin at present.
Code Status: DNR
Time spent 37 minutes
Anticipated Discharge: Within 24 hours
Subjective/Interval History
-
Date of Service: July 03, 2025
No chest pain or shortness of breath
Objective Data
-
Labs:
Laboratory Results
07/03/25 07/03/25 07/03/25
02:55 09:11 18:00
APTT 91.1 H 144.4 H Pending
Sodium 136
Potassium 4.3
Chloride 103
Carbon Dioxide 30
BUN 19
Creatinine 0.6 L
Glucose 132 H
Calcium 8.8
Vital Signs:
Vital Signs
Temp Pulse Resp BP Pulse Ox
98.2 F 83 23 118/78 98
07/03/25 11:18 07/03/25 11:14 07/03/25 11:14 07/03/25 10:00 07/03/25 11:14
I&O
07/02/25 07/03/25 07/04/25
06:59 06:59 06:59
Intake Total 592.5 / 592.5 290 / 290
Output Total 1050 / 1050
Balance -457.5 / -457.5 290 / 290
--- NOTE | 2025-07-03 12:43 | W.PN.CARDCBS ---
Today's Communication / Plan
-
Increase activity no further chest pain, stable cardiology status for discharge on Wednesday 07/04
Impression / Plan
-
Primary [place] Wheeler: Dr. MILA Woo
Impression:
Admitted with recurrent chest pain and elevated Troponin 07/02/25
CAD
s/p CABG 1999 at [facility] with GAR to LAD and free JONO Y graft from GAR to OM
cath showed progression of [place] CAD however patient bypass grafts 12/2019
cath 03/2025 with new OM lesion, felt to be high risk for intervention, medically managed
NSTEMI 05/26/25
History of recovered ischemic cardiomyopathy, EF 50 to 55% by echo 11/2024
Chronic HFpEF
h/o NSVT
Chronic orthostatic hypotension
Sinus tachycardia
Paroxysmal atrial flutter
s/p ablation in 2017Paroxysmal atrial fibrillation
diagnosed during 12/2019 admission without known recurrence
Not chronically anticoagulated due to patient's choice and low burden of atrial arrhythmia
PVD
h/o endovascular AAA repair and bilateral femoral artery endarterectomy and profundoplasty 07/2018
Type 2 diabetes
Hypertension
Hypercholesterolemia
Chronic right bundle-branch block
COPD on chronic supp O2, 3L
History of duodenal ulcer with microperforation in 2018
h/o daily ETOH use now abstinent
Former smoker
h/o fall and hip fracture plus NSTEMI 05/24/2025 until 05/31/2025
DNR
ECHO 09/06/23: Definity used, EF 45 to 50%, global hypokinesis, stage I diastolic dysfunction, mild MR, trace TR, PAP 25 to 30 mmHg
Echo 12/11/2024: EF 50 to 55%, no regional wall motion abnormalities, mild concentric LVH, no significant valvular disease
Echo 02/23/2025: EF 50%, mild to moderate concentric LVH, no significant valvular disease
Cath 04/17/25: GAR-LAD patent, JONO Y-graft GAR to OM with 95% distal stenosis.
Plan:
No further chest pain on higher dose of Imdur
If no further chest pain stable cardiology status for discharge in 24 hours on 07/04
Will discontinue IV heparin
Medical therapy might be limited due to orthostasis
preadmit data
-Patient came to the ER very early this morning with chest pain and cardiology is now consulted. Patient has been to the hospital 6 times for chest pain, heart failure and a hip fracture over the last 8 months. Patient has known CAD and does not
have many options due to OM lesion being distal to JONO graft and ANAM grafts are prone to dissection and tortuosity and force will be required to deliver equipment which may increase this risk and if a complication occurs there would be limited
treatment options. The OM is not small but is also not comparable to the LAD in vascular territory or myocardium supplied. Initial troponin this admission was 0.070 and then 0.071. Patient was admitted and started on heparin gtt.
Progress Note - Sand Wheeler
Subjective
Date of Service: July 03, 2025
No chest pain or shortness of breath
Objective
Labs:
07/02/25 03:04
07/03/25 02:55
Labs
Hgb 11.1 g/dL (13.0-18.0) L 07/02/25 03:04
Hct 36.4 % (39.0-52.0) L 07/02/25 03:04
Plt Count 279 10^3/uL (130-400) 07/02/25 03:04
APTT 144.4 Sec (23.4-35.0) H 07/03/25 09:11
Sodium 136 mmol/L (135-145) 07/03/25 02:55
Potassium 4.3 mmol/L (3.5-5.1) 07/03/25 02:55
BUN 19 mg/dl (9-20) 07/03/25 02:55
Creatinine 0.6 mg/dL (0.7-1.3) L 07/03/25 02:55
Glucose 132 mg/dl (70-99) H 07/03/25 02:55
Troponins
07/02/25 07/02/25 07/02/25
03:04 05:01 06:09
Troponin I 0.024 0.070 H* D Cancelled
07/02/25 07/02/25 07/03/25
11:55 18:09 02:55
Troponin I 0.071 H* Cancelled 0.040 H*
Vital Signs and I&O:
Vital Signs
Temp Pulse Resp BP Pulse Ox
98.2 F 85 21 96
07/03/25 11:18 07/03/25 12:00 07/03/25 12:00 07/03/25 12:00 07/03/25 12:00
Vital Signs
Temp Pulse Resp BP Pulse Ox
98.2 F 85 21 96
07/03/25 11:18 07/03/25 12:00 07/03/25 12:00 07/03/25 12:00 07/03/25 12:00
Intake & Output
07/01/25 07/02/25 07/03/25 07/04/25
06:59 06:59 06:59 06:59
Intake Total 592.5 / 592.5 327.5 / 327.5
Output Total 1050 / 1050
Balance -457.5 / -457.5 327.5 / 327.5
Physical Exam
Physical Exam
General: Well developed, well nourished in NAD.
Neck: Supple, no JVD, HJR, carotids +2 B/L, no bruits bilaterally.
Heart: Non displaced PMI, RRR, no murmurs, No S3, S4, no rubs.
Lungs: Clear to auscultation bilaterally, no wheeze, rhonchi, rubs bilaterally,
normal expiratory phase.
Extremities: No clubbing, cyanosis or edema bilaterally.
Neuro: Grossly nonfocal, awake, alert and oriented x3.
[2025-07-03] MEDS: NOVOLOG FLEXPEN-LOW RESISTANCE 3 UNITS SC (13:24)
--- NOTE | 2025-07-03 15:14 | CM ---
Discharge POC: Return to [facility] with PT for resumption of LTC.
--- NOTE | 2025-07-03 16:36 | PTCARENOTE ---
Report given to IVU RN and pt. transferred via bed to rm [id number] on conservation educator w heparin gtt- see flow sheet. No further needs from this RN.
[2025-07-03 17:59] LABS: Glucose - Point of Care 180 mg/dl (70-99)
[2025-07-03] MEDS: NOVOLOG FLEXPEN-LOW RESISTANCE 1 UNITS SC (18:03)
--- NOTE | 2025-07-03 18:12 | PTCARENOTE ---
received patient from ICU, monitor placed, NSR, VSS stable at this time. IV heparin @ 1050units/hr via left forearm. PTT was drawn and sent to lab. patient is oriented to person and place but is forgetful with conversation. patient has moist, harsh
cough, o2 sat 97% on 2 LNC (chronic). left hip surgery done last month, hip still sore, patient able to turn self in bed. patient has a chronic mason, draining yellow urine. patient is a diabetic, BS obtained at dinner. patient is DNR with purple
band on. oriented to room and surroundings, call kuhn within reach.
[2025-07-03 18:30] LABS: APTT 78.7 Sec (23.4-35.0)
[2025-07-03 22:17] LABS: Glucose - Point of Care 172 mg/dl (70-99)
[2025-07-03] MEDS: MELATONIN 3 MG PO (22:31)
[2025-07-03] MEDS: LOPRESSOR 5 MG IV (23:31)
[2025-07-04] VITALS (15 sets, daily range): BP systolic 62–149; BP diastolic 49–88; PULSE 85–93; BMI 23.8
[2025-07-04] MEDS: HEPARIN 25000 UNITS/250 ML IV (00:29)
[2025-07-04 02:38] LABS: Hematocrit 34.8 % (39.0-52.0); Hemoglobin 11.1 g/dL (13.0-18.0); Mean Corp Hgb Conc. 31.9 g/dL (33.0-37.0); Mean Corpuscular Volume 92.8 fL (80.0-94.0); Platelet Count 291 10^3/uL (130-400); Red Cell Dist. Width 16.2 % (11.5-14.5)
[2025-07-04 02:50] LABS: APTT 62.8 Sec (23.4-35.0)
--- NOTE | 2025-07-04 03:31 | PTCARENOTE ---
Received pt at change of shift resting in bed. AOx3, forgetful @x's. ST on tele-HR 110's. pt denies any SOB. pt reports having left sided CP 04/03. Meghann Belle, DRY COLOR MIXER made aware. Instructed RN to try PRN Tylenol. Administered per order--see MAR. pt
reports having some relief. DRY COLOR MIXER added order for PRN IV Lopressor. Administered per parameters, HR 117 bpm--see MAR for further details. HR now in the 80's. BP stable. pt resting comfortably, no complaints at this time. Fall risk precautions
maintained, bed alarm on and audible. Call kuhn within reach.
[2025-07-04 06:52] LABS: Glucose - Point of Care 129 mg/dl (70-99)
[2025-07-04] MEDS: PULMICORT 0.5 MG INH ×2 (07:17→20:06)
[2025-07-04] MEDS: DUONEB 3 ML INH ×4 (07:17→20:06)
[2025-07-04] MEDS: NOVOLOG FLEXPEN-LOW RESISTANCE SC (07:45)
[2025-07-04] MEDS: NITRO-DUR 0.2 MG TRANSDERM (09:14)
[2025-07-04] MEDS: SODIUM CHLORIDE 1 GRAM PO ×4 (09:14→20:55)
[2025-07-04] MEDS: ABILIFY 5 MG PO (09:14)
[2025-07-04] MEDS: WELLBUTRIN XL (24 hour extended release) 300 MG PO (09:15)
[2025-07-04] MEDS: COREG 6.25 MG PO (09:15)
[2025-07-04] MEDS: LIPITOR 80 MG PO (09:15)
[2025-07-04] MEDS: PROTONIX 40 MG PO (09:15)
[2025-07-04] MEDS: MUCINEX 600 MG PO ×2 (09:15→20:55)
[2025-07-04] MEDS: ZOLOFT 200 MG PO (09:16)
[2025-07-04] MEDS: PLAVIX 75 MG PO (09:16)
[2025-07-04] MEDS: DELTASONE 10 MG PO (09:16)
[2025-07-04] MEDS: SENOKOT 17.2 MG PO (09:16)
[2025-07-04] MEDS: VITAMIN C 500 MG PO (09:16)
[2025-07-04] MEDS: IMDUR (EXTENDED RELEASE) 120 MG PO (09:16)
[2025-07-04] MEDS: FEOSOL 325 MG PO (09:17)
[2025-07-04] MEDS: RANEXA EXTENDED RELEASE 1000 MG PO ×2 (09:18→20:55)
[2025-07-04] MEDS: LOW STRENGTH ASPIRIN 81 MG PO (09:18)
[2025-07-04] MEDS: LASIX 20 MG PO (09:23)
[2025-07-04] MEDS: ALDACTONE 12.5 MG PO (09:23)
--- NOTE | 2025-07-04 09:26 | W.PN.HOSP.TC ---
Today's Communication/Plan
-
Monitor blood pressure and adjust medications.
Assessment / Plan
Assessment / Plan
Physical exam:
General: Well Developed, Well Nourished and No Apparent Distress
HEENT: Normocephalic, Atraumatic and Moist Mucous Membranes
Respiratory: Clear to Auscultation; Negative Wheezes, Rales or Rhonchi
Cardiac: Regular Rhythm and S1/S2
GI: Soft, Nontender and Nondistended
Musculoskeletal: No Clubbing, No Cyanosis and No Edema
Neuro: Awake, Alert and Oriented
Psych: Calm
A/P:
NSTEMI / ACS
ASCVD
Stopping heparin drip per cardiology
Continue current anti-ischemic regimen
Cardiology consult appreciated
PT OT eval
Cardiology clearing for discharge today but patient very hypotensive although asymptomatic--> I think it would best to monitor as an inpatient for 1 more day for more stable blood pressure and also medications adjusted.
Orthostatic Hypotension
Continue midodrine
Stopping spironolactone and reducing Coreg doses
Limits medical therapy
COPD with Chronic Hypoxemic Respiratory Failure
- Patient on chronic prednisone and 3 lpm of O2.
- Continue current regimen including prednisone, inhaled medications, etc.
- Titrate O2 support as needed.
- Nebs ATC and PRN.
DM-II
- Stable. Hold low-dose standing insulin for now. Hemoglobin A1c 6.3
- Follow glucose and cover with SSI as needed.
Chronic HFpEF
- Stable. Patient does not appear grossly volume overloaded.
- Continue current furosemide / spironolactone doses for now.
- Follow I/Os, daily weights, etc.
- Adjust regimen as needed.
- Follow labs (potassium) for changes.
Anxiety / Depression
- Stable. Continue current medications.
GERD
- Stable. Continue PPI.
BPH
- Stop tamsulosin as noted above given risk of worsening orthostasis.
- Bladder scan protocol.
DVT Prophylaxis: On IV heparin at present.
Code Status: DNR
Time spent 35 minutes
Anticipated Discharge: Within 24 hours
Subjective/Interval History
-
Date of Service: July 04, 2025
Patient denies chest pain shortness of breath or lightheadedness. Blood pressure very low today.
Objective Data
-
Labs:
Laboratory Results
07/04/25 07/04/25
02:23 09:20
WBC 8.4
Hgb 11.1 L
Hct 34.8 L
Plt Count 291
APTT 62.8 H Pending
Vital Signs:
Vital Signs
Temp Pulse Resp BP Pulse Ox
97.3 F 78 15 108/66 98
07/04/25 07:15 07/04/25 08:00 07/04/25 07:20 07/04/25 07:15 07/04/25 07:20
I&O
07/03/25 07/04/25 07/05/25
06:59 06:59 06:59
Intake Total 592.5 / 592.5 1589.5 / 1589.5
Output Total 1050 / 1050 1425 / 1425 350 / 350
Balance -457.5 / -457.5 164.5 / 164.5 -350 / -350
[2025-07-04] MEDS: ZITHROMAX 250 MG PO (09:28)
[2025-07-04] MEDS: TYLENOL 650 MG PO ×2 (10:16→20:54)
--- NOTE | 2025-07-04 10:23 | W.PN.CARDCBS ---
Addendum entered and electronically signed by Shin Cruz MD 07/04/25 11:41:
I saw and examined the patient.
The Commercial Door Installer's note was reviewed and I agree with the note.
Comment: Briefly, 70-year-old man past medical history of multivessel CAD with prior CABG and PCI as well as heart failure with preserved ejection fraction presenting with chest discomfort and low-level troponin elevation 0.024�0.070�0.071�0.040.
Unfortunately underwent recent left heart catheterization and his coronary artery disease is not thought to be amenable to revascularization.
He has been treated medically for ACS with aspirin/Plavix, high intensity statin, beta-renato and heparin drip
Chest pain-free this morning at the time of my evaluation
Okay to discontinue heparin at this point as he has completed 48 hours
Imdur dose has been increased
Would continue other antianginal meds�Nitropatch, Coreg and Ranexa
Appears euvolemic on exam, would continue current Lasix dosing
Stable for discharge from my perspective. We will arrange outpatient follow-up.
Original Note:
Today's Communication / Plan
-
stop IV heparin
ambulate
continue increased dose of imdur 120mg daily
OP cardiac follow up arranged
Impression / Plan
-
Primary Material Planning Analyst: Dr. MILA Woo
Impression:
Admitted with recurrent chest pain and elevated Troponin 07/02/25
CAD
s/p CABG 1998 at [facility] with GAR to LAD and free JONO Y graft from GAR to OM
cath showed progression of [place] CAD however patient bypass grafts 12/2019
cath 03/2025 with new OM lesion, felt to be high risk for intervention, medically managed
NSTEMI 05/26/25
History of recovered ischemic cardiomyopathy, EF 50 to 55% by echo 11/2024
Chronic HFpEF
h/o NSVT
Chronic orthostatic hypotension
Sinus tachycardia
Paroxysmal atrial flutter
s/p ablation in 2018Paroxysmal atrial fibrillation
diagnosed during 12/2019 admission without known recurrence
Not chronically anticoagulated due to patient's choice and low burden of atrial arrhythmia
PVD
h/o endovascular AAA repair and bilateral femoral artery endarterectomy and profundoplasty 07/2018
Type 2 diabetes
Hypertension
Hypercholesterolemia
Chronic right bundle-branch block
COPD on chronic supp O2, 3L
History of duodenal ulcer with microperforation in 2018
h/o daily ETOH use now abstinent
Former smoker
h/o fall and hip fracture plus NSTEMI 05/24/2025 until 05/31/2025
DNR
ECHO 09/06/23: Definity used, EF 45 to 50%, global hypokinesis, stage I diastolic dysfunction, mild MR, trace TR, PAP 25 to 30 mmHg
Echo 12/11/2024: EF 50 to 55%, no regional wall motion abnormalities, mild concentric LVH, no significant valvular disease
Echo 02/23/2025: EF 50%, mild to moderate concentric LVH, no significant valvular disease
Cath 04/17/25: GAR-LAD patent, JONO Y-graft GAR to OM with 95% distal stenosis.
Plan:
- He is without chest pain overnight
- Imdur increased to 120 mg this admission. Continue additional antianginal regimen of Coreg 6.25 mg twice daily, Nitropatch 0.2 mg transdermally daily, Ranexa 1000 mg p.o. twice daily.
- Historically medical therapy has been limited by orthostasis, follow on midodrine 5mg TID
- Continue aspirin, Plavix
- Stop IV heparin
- In sinus rhythm on review of telemetry
- Ambulate patient
- Will arrange outpatient cardiac follow-up
- For possible DC to [facility] today if remains chest pain-free
preadmit data:
-Patient came to the ER very early this morning with chest pain and cardiology is now consulted. Patient has been to the hospital 6 times for chest pain, heart failure and a hip fracture over the last 8 months. Patient has known CAD and does not
have many options due to OM lesion being distal to JONO graft and ANAM grafts are prone to dissection and tortuosity and force will be required to deliver equipment which may increase this risk and if a complication occurs there would be limited
treatment options. The OM is not small but is also not comparable to the LAD in vascular territory or myocardium supplied. Initial troponin this admission was 0.070 and then 0.071. Patient was admitted and started on heparin gtt.
Progress Note - Material Planning Analyst
Subjective
Date of Service: July 04, 2025
Denies chest pain overnight
Objective
Labs:
07/04/25 02:23
07/03/25 02:55
Labs
Hgb 11.1 g/dL (13.0-18.0) L 07/04/25 02:23
Hct 34.8 % (39.0-52.0) L 07/04/25 02:23
Plt Count 291 10^3/uL (130-400) 07/04/25 02:23
APTT 62.8 Sec (23.4-35.0) H 07/04/25 02:23
Sodium 136 mmol/L (135-145) 07/03/25 02:55
Potassium 4.3 mmol/L (3.5-5.1) 07/03/25 02:55
BUN 19 mg/dl (9-20) 07/03/25 02:55
Creatinine 0.6 mg/dL (0.7-1.3) L 07/03/25 02:55
Glucose 132 mg/dl (70-99) H 07/03/25 02:55
Troponins
07/02/25 07/02/25 07/02/25
03:04 05:01 06:09
Troponin I 0.024 0.070 H* D Cancelled
07/02/25 07/02/25 07/03/25
11:55 18:09 02:55
Troponin I 0.071 H* Cancelled 0.040 H*
Vital Signs and I&O:
Vital Signs
Temp Pulse Resp BP Pulse Ox
97.3 F 78 15 108/66 98
07/04/25 07:15 07/04/25 08:00 07/04/25 07:20 07/04/25 07:15 07/04/25 07:20
Vital Signs
Temp Pulse Resp BP Pulse Ox
97.3 F 78 15 108/66 98
07/04/25 07:15 07/04/25 08:00 07/04/25 07:20 07/04/25 07:15 07/04/25 07:20
Intake & Output
07/02/25 07/03/25 07/04/25 07/05/25
07:59 07:59 07:59 07:59
Intake Total 592.5 / 882.5 1589.5 / 1589.5
Output Total 1050 / 1050 1425 / 1425 350 / 350
Balance -457.5 / -167.5 164.5 / 164.5 -350 / -350
Physical Exam
Physical Exam
GEN: No distress, awake, alert, oriented x3
HEENT: supple, anicteric, mmm, EOMI bilaterally
LUNGS: CTA, no wheezes/rales
CV: Reg, S1/S2, no murmur
ABD: soft, BS+, NT/ND
EXT: No cyanosis, clubbing, edema
NEURO: Gross non-focal
SKIN: Warm, pink, dry. No rash. Scattered ecchymoses of bilateral upper extremity
--- NOTE | 2025-07-04 10:41 | CM ---
Addendum entered by Ava Briones 07/04/25 14:48:
Received message Mr. Bernard is not ready for transfer back to [facility] today. Telephone call to [facility] admissions to update them. Medial work-up in progress. The discharge plan is to return to [facility] when medically stable.
Original Note:
Reviewed chart. Met with Mr. Bernard to review discharge plans. He states he maybe ready soon for transfer back to [facility]. He states prior to admission he resides at [facility]. He states he has been there since
November. He states his plan is to return to [facility] when ready for discharge. He states prior to admission he uses a walker or single point cane for short distances and a wheelchair for longer distances. He states the staff
assist with adls. He states [facility] staff assists with medications. Telephone call to [facility] Admission to confirm ability to accept back today. [facility] admissions confirms they can accept him
today. The report report number is [phone]) and [facility] fax number is ([phone]) Medical necessity form completed for ambulance transport due to 02. Medical work-up in Progress. The discharge plan is to return to [facility]
when medically stable.
[2025-07-04 11:36] LABS: Glucose - Point of Care 190 mg/dl (70-99)
[2025-07-04] MEDS: NOVOLOG FLEXPEN-LOW RESISTANCE 1 UNITS SC (12:06)
--- NOTE | 2025-07-04 12:56 | W.PN.UPDATE ---
Update Note
Progress Note Update
nursing noted patient's most recent blood pressure to be low in 70/50s. patient asymptomatic. will stop spironolactone and reduce coreg dose to 3.125mg BID and follow.
--- NOTE | 2025-07-04 14:40 | PTCARENOTE ---
Addendum entered by Kristen Wolff RN 07/04/25 17:18:
BP @ 3pm 94/65. Pt was for discharge, will stay overnight to monitor BP per Dr. Cuevas.
Original Note:
Pt's BP @ 12:30 70/50s, Dr. Cuevas and FATUMA Beth made aware. Pt is asymptomatic on bedrest. Midodrine given as ordered-repeat BP 80/50s.
[2025-07-04 18:13] LABS: Glucose - Point of Care 256 mg/dl (70-99)
[2025-07-04] MEDS: NOVOLOG FLEXPEN-LOW RESISTANCE 3 UNITS SC (18:15)
[2025-07-04] MEDS: COREG 3.125 MG PO (20:52)
[2025-07-04] MEDS: MELATONIN 3 MG PO (20:55)
--- NOTE | 2025-07-04 21:30 | PTCARENOTE ---
Assumed care of the pt @ 1900. Pt is AAOx3 forgetful at times. SR with BBB denies cp vss. Pt c/o a headache Tylenol given. Bed alarm in use call kuhn within reach.
[2025-07-05] VITALS (13 sets, daily range): BP systolic 79–140; BP diastolic 67–94; PULSE 88–108; O2SAT 92; BMI 23.8
[2025-07-05 04:38] LABS: Hematocrit 36.7 % (39.0-52.0); Hemoglobin 11.6 g/dL (13.0-18.0); Mean Corp Hgb Conc. 31.6 g/dL (33.0-37.0); Mean Corpuscular Volume 93.9 fL (80.0-94.0); Platelet Count 288 10^3/uL (130-400); Red Cell Dist. Width 16.3 % (11.5-14.5)
[2025-07-05 05:15] LABS: Blood Urea Nitrogen 20 mg/dl (9-20); Calcium 9.4 mg/dl (8.4-10.2); Carbon Dioxide 23 mmol/L (22-30); Chloride 107 mmol/L (98-107); Estimated Creatinine Clearance 90 ml/min; Glucose 133 mg/dl (70-99); Potassium 4.1 mmol/L (3.5-5.1); Sodium 141 mmol/L (135-145); eGFR > 60.00
[2025-07-05 05:45] LABS: Cortisol, Random 3.3 ug/dl
[2025-07-05] MEDS: NOVOLOG FLEXPEN-LOW RESISTANCE SC (07:40)
[2025-07-05 07:41] LABS: Glucose - Point of Care 129 mg/dl (70-99)
[2025-07-05] MEDS: ZOLOFT 200 MG PO (07:41)
[2025-07-05] MEDS: LIPITOR 80 MG PO (07:42)
[2025-07-05] MEDS: IMDUR (EXTENDED RELEASE) 120 MG PO (07:42)
[2025-07-05] MEDS: SENOKOT 17.2 MG PO (07:42)
[2025-07-05] MEDS: DELTASONE 10 MG PO (07:42)
[2025-07-05] MEDS: LOW STRENGTH ASPIRIN 81 MG PO (07:42)
[2025-07-05] MEDS: RANEXA EXTENDED RELEASE 1000 MG PO (07:43)
[2025-07-05] MEDS: WELLBUTRIN XL (24 hour extended release) 300 MG PO (07:43)
[2025-07-05] MEDS: NITRO-DUR 0.2 MG TRANSDERM (07:43)
[2025-07-05] MEDS: SODIUM CHLORIDE 1 GRAM PO ×2 (07:43→13:19)
[2025-07-05] MEDS: PLAVIX 75 MG PO (07:43)
[2025-07-05] MEDS: FEOSOL 325 MG PO (07:43)
[2025-07-05] MEDS: PROTONIX 40 MG PO (07:43)
[2025-07-05] MEDS: COREG 3.125 MG PO (07:44)
[2025-07-05] MEDS: ABILIFY 5 MG PO (07:44)
[2025-07-05] MEDS: MUCINEX 600 MG PO (07:44)
[2025-07-05] MEDS: VITAMIN C 500 MG PO (07:44)
[2025-07-05] MEDS: DUONEB 3 ML INH ×3 (08:32→14:56)
[2025-07-05] MEDS: PULMICORT 0.5 MG INH (08:32)
--- NOTE | 2025-07-05 08:35 | W.PN.CARDCBS ---
Addendum entered and electronically signed by Memo Taveras DO 07/05/25 15:19:
I saw and examined the patient.
The Invoice Control Clerk's note was reviewed and I agree with the note.
Comment:
Plan:
Cont medical therapy for nonrevascularizable disease. No further cp
Imdur increased.
Due to hypotension, spironolactone stopped and Coreg dose decreased to 3.125 mg twice daily. Continue Ranexa 1000 mg twice daily, Nitro-Dur 0.2 mg daily
GDMT has been limited by orthostasis, follow on midodrine 5mg TID
Cont DAPT with ASA and Plavix
Outpatient cardiac follow-up arranged
Reviewed with primary service.
Original Note:
Today's Communication / Plan
-
ambulate patient
if BP remains stable, would plan for DC today
Impression / Plan
-
Primary Lookback Coordinator: Dr. MILA Woo
Impression:
Admitted with recurrent chest pain and elevated Troponin 07/02/25
CAD
s/p CABG 1998 at [facility] with GAR to LAD and free JONO Y graft from GAR to OM
cath showed progression of [place] CAD however patient bypass grafts 12/2019
cath 03/2025 with new OM lesion, felt to be high risk for intervention, medically managed
NSTEMI 05/26/25
History of recovered ischemic cardiomyopathy, EF 50 to 55% by echo 11/2024
Chronic HFpEF
h/o NSVT
Chronic orthostatic hypotension
Sinus tachycardia
Paroxysmal atrial flutter
s/p ablation in 2017Paroxysmal atrial fibrillation
diagnosed during 12/2019 admission without known recurrence
Not chronically anticoagulated due to patient's choice and low burden of atrial arrhythmia
PVD
h/o endovascular AAA repair and bilateral femoral artery endarterectomy and profundoplasty 07/2018
Type 2 diabetes
Hypertension
Hypercholesterolemia
Chronic right bundle-branch block
COPD on chronic supp O2, 3L
History of duodenal ulcer with microperforation in 2018
h/o daily ETOH use now abstinent
Former smoker
h/o fall and hip fracture plus NSTEMI 05/24/2025 until 05/31/2025
DNR
ECHO 09/06/23: Definity used, EF 45 to 50%, global hypokinesis, stage I diastolic dysfunction, mild MR, trace TR, PAP 25 to 30 mmHg
Echo 12/11/2024: EF 50 to 55%, no regional wall motion abnormalities, mild concentric LVH, no significant valvular disease
Echo 02/23/2025: EF 50%, mild to moderate concentric LVH, no significant valvular disease
Cath 04/17/25: GAR-LAD patent, JONO Y-graft GAR to OM with 95% distal stenosis.
Plan:
- He is without chest pain overnight
- He has known unrevascularizable CAD
- Imdur increased to 120 mg this admission. Due to hypotension, spironolactone stopped and Coreg dose decreased to 3.125 mg twice daily. Continue Ranexa 1000 mg twice daily, Nitro-Dur 0.2 mg daily
- Historically medical therapy has been limited by orthostasis, follow on midodrine 5mg TID
- Continue aspirin, Plavix
- In sinus rhythm on review of telemetry
- Ambulate patient
- outpatient cardiac follow-up arranged
- [facility] today if remains chest pain-free
- d/w nursing
preadmit data:
-Patient came to the ER very early this morning with chest pain and cardiology is now consulted. Patient has been to the hospital 6 times for chest pain, heart failure and a hip fracture over the last 8 months. Patient has known CAD and does not
have many options due to OM lesion being distal to JONO graft and ANAM grafts are prone to dissection and tortuosity and force will be required to deliver equipment which may increase this risk and if a complication occurs there would be limited
treatment options. The OM is not small but is also not comparable to the LAD in vascular territory or myocardium supplied. Initial troponin this admission was 0.070 and then 0.071. Patient was admitted and started on heparin gtt.
Progress Note - Lookback Coordinator
Subjective
Date of Service: July 05, 2025
no CP
Objective
Labs:
07/05/25 03:46
07/05/25 03:46
Labs
Hgb 11.6 g/dL (13.0-18.0) L 07/05/25 03:46
Hct 36.7 % (39.0-52.0) L 07/05/25 03:46
Plt Count 288 10^3/uL (130-400) 07/05/25 03:46
APTT Cancelled 07/04/25 09:20
Sodium 141 mmol/L (135-145) 07/05/25 03:46
Potassium 4.1 mmol/L (3.5-5.1) 07/05/25 03:46
BUN 20 mg/dl (9-20) 07/05/25 03:46
Creatinine 0.7 mg/dL (0.7-1.3) 07/05/25 03:46
Glucose 133 mg/dl (70-99) H 07/05/25 03:46
Troponins
07/02/25 07/02/25 07/02/25
06:09 11:55 18:09
Troponin I Cancelled 0.071 H* Cancelled
07/03/25
02:55
Troponin I 0.040 H*
Vital Signs and I&O:
Vital Signs
Temp Pulse Resp BP Pulse Ox
97.3 F 102 16 140/94 98
07/05/25 07:10 07/05/25 08:33 07/05/25 08:33 07/05/25 07:41 07/05/25 08:33
Vital Signs
Temp Pulse Resp BP Pulse Ox
97.3 F 102 16 140/94 98
07/05/25 07:10 07/05/25 08:33 07/05/25 08:33 07/05/25 07:41 07/05/25 08:33
Intake & Output
07/03/25 07/04/25 07/05/25 07/06/25
07:59 07:59 07:59 07:59
Intake Total 592.5 / 882.5 1589.5 / 1589.5 120 / 120
Output Total 1050 / 1050 1425 / 1425 1450 / 1450
Balance -457.5 / -167.5 164.5 / 164.5 -1330 / -1330
Physical Exam
Physical Exam
GEN: No distress, awake, alert, oriented x3
HEENT: supple, anicteric, mmm
LUNGS: CTA B/L, no wheezes/rales
CV: Reg, S1/S2, no murmur
ABD: soft, BS+, NT/ND
EXT: No cyanosis, clubbing, edema
NEURO: Gross non-focal
SKIN: Warm, pink, dry. No rash. Scattered ecchymoses of bilateral upper extremity
--- NOTE | 2025-07-05 11:10 | W.PN.HOSP.TC ---
Today's Communication/Plan
-
Discharge planning today
Assessment / Plan
Assessment / Plan
Physical exam:
General: Well Developed, Well Nourished and No Apparent Distress
HEENT: Normocephalic, Atraumatic and Moist Mucous Membranes
Respiratory: Clear to Auscultation; Negative Wheezes, Rales or Rhonchi
Cardiac: Regular Rhythm and S1/S2
GI: Soft, Nontender and Nondistended
Musculoskeletal: No Clubbing, No Cyanosis and No Edema
Neuro: Awake, Alert and Oriented
Psych: Calm
A/P:
NSTEMI / ACS
ASCVD
Stopping heparin drip per cardiology
Continue current anti-ischemic regimen
Cardiology consult appreciated
PT OT eval
Cardiology cleared him for discharge
Orthostatic Hypotension
Continue midodrine
Stopping spironolactone and reducing Coreg doses
Limits medical therapy
COPD with Chronic Hypoxemic Respiratory Failure
- Patient on chronic prednisone and 3 lpm of O2.
- Continue current regimen including prednisone, inhaled medications, etc.
- Titrate O2 support as needed.
- Nebs ATC and PRN.
DM-II
- Stable. Hold low-dose standing insulin for now. Hemoglobin A1c 6.3
- Follow glucose and cover with SSI as needed.
Chronic HFpEF
- Stable. Patient does not appear grossly volume overloaded.
- Continue current furosemide / spironolactone doses for now.
- Follow I/Os, daily weights, etc.
- Adjust regimen as needed.
- Follow labs (potassium) for changes.
Anxiety / Depression
- Stable. Continue current medications.
GERD
- Stable. Continue PPI.
BPH
- Stop tamsulosin as noted above given risk of worsening orthostasis.
- Bladder scan protocol.
DVT Prophylaxis: On IV heparin at present.
Code Status: DNR
Anticipated Discharge: Today
Subjective/Interval History
-
Date of Service: July 05, 2025
No new complaints. Blood pressure improved.
Objective Data
-
Labs:
Laboratory Results
07/05/25
03:46
WBC 6.9
Hgb 11.6 L
Hct 36.7 L
Plt Count 288
Sodium 141
Potassium 4.1
Chloride 107
Carbon Dioxide 23
BUN 20
Creatinine 0.7
Glucose 133 H
Calcium 9.4
Vital Signs:
Vital Signs
Temp Pulse Resp BP Pulse Ox
97.2 F 101 20 101/71 98
07/05/25 11:09 07/05/25 11:08 07/05/25 11:09 07/05/25 09:19 07/05/25 11:09
I&O
07/04/25 07/05/25 07/06/25
06:59 06:59 06:59
Intake Total 1589.5 / 1589.5 120 / 120
Output Total 1425 / 1425 1450 / 1450
Balance 164.5 / 164.5 -1330 / -1330
--- NOTE | 2025-07-05 11:16 | W.DCSUMMARY ---
Discharge Summary
Discharge Data
Date of Admission: 07/02/25
Date of Discharge: 07/05/25
Total time spent discharging patient (in min): 37
-
Pending Results: No
Hospital Course
Patient is 70 years old male with history of CAD, CHF, orthostatic hypotension, paroxysmal A-flutter, diabetes mellitus, hyperlipidemia, hypertension, COPD chronic home oxygen, peptic ulcer disease, came into the hospital with recurrent chest pain
and elevated troponin consistent with NSTEMI. Patient was treated with heparin drip and ACS protocol. Cardiology consulted. Unfortunately patient not amenable for any revascularization and cardiac regimen adjusted. His orthostasis also limited
medication management and adjustments were made as described on the discharge list. He did participate with PT and OT. Patient has been cleared by cardiology and at this point he will be discharged in relatively stable condition back to rehab.
Discharge duration: 37 minutes
Discharge Plan
-
Patient Disposition: Penitentiary/SNF
Discharge Diagnosis/Procedures: Non-ST elevation myocardial infarction. Orthostatic hypotension. Chronic obstructive pulmonary disease with chronic hypoxic respiratory failure. Chronic diastolic congestive heart failure. Diabetes mellitus.
Condition: Good
Diet: Diabetic, Carb Controlled
Activity: As tolerated
Blood Work: Please PCP to order CBC, BMP within 1 week
Specialty Instructions: Weigh Daily- Call MD for wt gain/loss 3 lbs overnight/5 lbs in 1 week
Referrals:
[facility] [Outside]
Hillary Baird PA-C [Specified Professional Personl, Cardiology] - 08/07/25 2:40 pm
Referral Note: You have a cardiology follow-up appointment at the [place] office with Dr. Woo's physician behavioral assistant, Hillary. Please call with questions
Renan Pedroza DO [Family Provider, Family Practice] - in less than 1 week
Prescriptions:
New
carvedilol 3.125 mg Tablet
3.125 mg PO BID 30 Days Qty: 0 0RF
isosorbide mononitrate 60 mg Tablet Extended Release 24 Hr
120 mg PO DAILY 30 Days Qty: 60 0RF
Continued
ipratropium-albuterol 0.5 mg-3 mg(2.5 mg base)/3 mL Solution For Nebulization
3 ml INHALATION R QIDPRN PRN (Reason: SOB)
atorvastatin 80 MG tablet
80 mg PO DAILY
pantoprazole 40 MG tablet,delayed release (DR/EC)
40 mg PO DAILY
prednisone 10 MG tablet
10 mg PO DAILY Qty: 0 0RF
acetaminophen 325 mg Tablet
650 mg PO Q4HPRN PRN (Reason: mild pain/fever)
magnesium hydroxide [Milk of Magnesia] 400 mg/5 mL Suspension
30 ml PO HSPRN PRN (Reason: constipation)
bisacodyl 10 mg Suppository
10 mg VT [id number] PRN (Reason: if mom ineffective)
fluticasone propionate 50 mcg/actuation [place],Suspension
2 spray INTRANASAL DAILYPRN PRN (Reason: allergies)
budesonide 0.5 mg/2 mL suspension for nebulization
0.5 mg inhalation R BID
nitroglycerin 0.2 mg/hr Patch 24 Hour
0.2 mg transdermal DAILY Qty: 0 0RF
insulin aspart U-100 100 unit/mL (3 mL) Insulin Pen
3 unit SC AC Qty: 0 0RF
polyethylene glycol 3350 17 gram Powder In Packet
17 g PO DAILY Qty: 0 0RF
insulin glargine [Lantus U-100 Insulin] 100 unit/mL solution
7 unit SC HS Qty: 0 0RF
melatonin 3 mg Tablet
3 mg PO HS Qty: 0 0RF
potassium chloride 20 mEq tablet,ER particles/crystals
20 meq PO DAILY Qty: 0 0RF
ascorbic acid (vitamin C) [Vitamin C] 500 mg tablet
500 mg PO DAILY Qty: 0 0RF
furosemide 20 mg Tablet
20 mg PO MOWEFR Qty: 0 0RF
Mucinex DM 30-600 mg Tablet Extended Release 12 Hr
1 tab PO Q12H Qty: 0 0RF
bupropion HCl 300 mg tablet extended release 24 hr
300 mg PO DAILY Qty: 0 0RF
sertraline 100 mg Tablet
200 mg PO DAILY
sodium chloride 1 gram Tablet
1,000 mg PO QID
ranolazine 500 mg Tablet Extended Release 12 Hr
1,000 mg PO BID Qty: 120 0RF
azithromycin 250 MG tablet
250 mg PO MOWEFR
clopidogrel 75 mg tablet
75 mg PO DAILY
sennosides [senna] 8.6 mg Tablet
17.2 mg PO BID
ferrous sulfate 325 mg (65 mg iron) Tablet
325 mg PO DAILY
midodrine 5 mg Tablet
5 mg PO TID@0800,1300,1800 Qty: 90 0RF
Fleet Enema 19-7 gram/118 mL Enema
118 ml VT DAILYPRN PRN (Reason: if no bm aftr dulcolax)
lorazepam 0.5 mg tablet
0.5 mg PO TIDPRN PRN (Reason: sleep/anxiety) Qty: 4 0RF
oxycodone 5 mg Tablet
5 mg PO Q8HPRN PRN (Reason: severe pain) Qty: 4 0RF
Discontinued
tamsulosin 0.4 mg Capsule
0.4 mg PO QPM
spironolactone 25 mg Tablet
12.5 mg PO DAILY Qty: 0 0RF
carvedilol 12.5 mg Tablet
12.5 mg PO BID Qty: 60 0RF
isosorbide mononitrate 60 mg Tablet Extended Release 24 Hr
60 mg PO DAILY Qty: 30 0RF
Discharge Orders:
Discharge Patient (As Directed); Ordered 07/05/25
Ordered By: Hudson Cuevas
Care Plan Goals
Care Plan Goals:
Problem: Readiness for enhanced knowledge related to diagnosis and treatment plan
Goal: Understand your diagnosis and treatment plan needs, including medications if applicable.
Instructions: Know your diagnosis, underlying causes and treatment plan options, including medications if applicable. Consult with your health care team to learn about your diagnosis and treatment plan, including medications if applicable.
Discharge Date and Time
Discharge Date/Time: 07/05/25 16:21
Print Language: [id number]
--- NOTE | 2025-07-05 12:23 | CM ---
Reviewed chart. Met with Mr. Bernard to review discharge plans. He states he is feeling good and maybe able to go back to [facility] today. Unit Sec. made ambulance arrangements with Acute Care for a 3:00 p.m. transfer time.
Telephone call to [facility] Admissions to update them on transfer date and time. Prior to admission he resides at [facility]. He has been there since November. His plan is to return to [facility] when ready
for discharge. Prior to admission he uses a walker or single point cane for short distances and a wheelchair for longer distances. The staff assist with adls. [facility] staff assists with medications. . The report report number is
([phone]) and the fax number is ([phone]) Medical necessity form completed for ambulance transport due to 02. Medical work-up in Progress. The discharge plan is to return to [facility] when medically stable.
[2025-07-05 13:25] LABS: Glucose - Point of Care 262 mg/dl (70-99)
[2025-07-05] MEDS: NOVOLOG FLEXPEN-LOW RESISTANCE 3 UNITS SC (13:25)
--- NOTE | 2025-07-05 14:53 | PTCARENOTE ---
Pt reports that 'his boots, money, and slip of paper' are missing from his room. Pt says he 'brought himself here with his boots.' Explained to pt that he was brought here via EMS from [facility] with no belongings. An egg caser made
phone calls to ICU, PACU, and medical laboratory technicians regarding missing belongings and belongings not found.
--- NOTE | 2025-07-05 16:16 | PTCARENOTE ---
Report called to Nelsy Reyes and given to Christelle WATSON. Discharge instructions and transfer form sent w/ pt. Pt transferred via ambulance stretcher.
== END 2025-07-05 16:21 | DRG 281 ==
LOC: IVU 05:10
PROVIDERS: ADMITTING PHYSICIAN Hospitalist; ATTENDING PHYSICIAN Hospitalist; EMERGENCY PHYSICIAN Emergency Medicine; FAMILY PHYSICIAN Student in an Organized Health Care Education/Training Program; OTHER PHYSICIAN Internal Medicine Cardiovascular Disease
DX: I21.4 Non-ST elevation (NSTEMI) myocardial infarction (principal); I50.32 Chronic diastolic (congestive) heart failure; J96.11 Chronic respiratory failure with hypoxia; I25.10 Atherosclerotic heart disease of native coronary artery without angina pectoris; I95.1 Orthostatic hypotension; J44.9 Chronic obstructive pulmonary disease, unspecified; Z79.52 Long term (current) use of systemic steroids; I11.0 Hypertensive heart disease with heart failure; F41.9 Anxiety disorder, unspecified; F32.A Depression, unspecified; K21.9 Gastro-esophageal reflux disease without esophagitis; N40.0 Benign prostatic hyperplasia without lower urinary tract symptoms; Z66 Do not resuscitate; I25.2 Old myocardial infarction; Z95.1 Presence of aortocoronary bypass graft; Z87.891 Personal history of nicotine dependence; Z88.8 Allergy status to other drugs, medicaments and biological substances; Z79.4 Long term (current) use of insulin; E11.9 Type 2 diabetes mellitus without complications; Z80.1 Family history of malignant neoplasm of trachea, bronchus and lung; Z82.49 Family history of ischemic heart disease and other diseases of the circulatory system; D64.9 Anemia, unspecified; E78.00 Pure hypercholesterolemia, unspecified; G47.30 Sleep apnea, unspecified; I45.10 Unspecified right bundle-branch block; K58.9 Irritable bowel syndrome, unspecified; Z79.02 Long term (current) use of antithrombotics/antiplatelets; Z79.899 Other long term (current) drug therapy; Z86.79 Personal history of other diseases of the circulatory system; Z87.11 Personal history of peptic ulcer disease; Z95.5 Presence of coronary angioplasty implant and graft
CPT/HCPCS: 71045; 80048; 80053; 82533; 82962; 83036; 83880; 84443; 84484; 85025; 85027; 85730; 87070; 93005; 94640; 96374; 97163; 97167; 97530; 99291

== ENCOUNTER → 2025-07-12 11:17 | Outpatient (REF) | payer OTHER, MEDICARE, SELFPAY ==
[2025-07-12 11:52] LABS: Hematocrit 34.8 % (39.0-52.0); Hemoglobin 10.6 g/dL (13.0-18.0); Mean Corp Hgb Conc. 30.5 g/dL (33.0-37.0); Mean Corpuscular Volume 94.1 fL (80.0-94.0); Platelet Count 235 10^3/uL (130-400); Red Cell Dist. Width 15.4 % (11.5-14.5)
== END ==
LOC: OLABN 11:17
PROVIDERS: ATTENDING PHYSICIAN Student in an Organized Health Care Education/Training Program
DX: I10 Essential (primary) hypertension (principal); E11.9 Type 2 diabetes mellitus without complications
CPT/HCPCS: 36415; 85027

== ENCOUNTER → 2025-07-13 11:13 | Outpatient (REF) | payer OTHER, MEDICARE, SELFPAY ==
[2025-07-13 13:16] LABS: Blood Urea Nitrogen 14 mg/dl (9-20); Calcium 9.1 mg/dl (8.4-10.2); Carbon Dioxide 29 mmol/L (22-30); Chloride 103 mmol/L (98-107); Glucose 94 mg/dl (70-99); Potassium 4.2 mmol/L (3.5-5.1); Sodium 136 mmol/L (135-145); eGFR > 60.00
== END ==
LOC: OLABN 11:13
PROVIDERS: ATTENDING PHYSICIAN Student in an Organized Health Care Education/Training Program
DX: E11.9 Type 2 diabetes mellitus without complications (principal)
CPT/HCPCS: 36415; 80048

== ENCOUNTER 2025-07-14 04:19 | Inpatient (IN) | payer MEDICARE, OTHER, SELFPAY ==
[2025-07-13 22:44] VITALS: BMI 24.8
[2025-07-13 23:00] VITALS: BP 135/80
[2025-07-13 23:17] LABS: Urine Character Slightly Cloudy (Clear)
[2025-07-13 23:19] LABS: Hematocrit 36.1 % (39.0-52.0); Hemoglobin 11.1 g/dL (13.0-18.0); Mean Corp Hgb Conc. 30.7 g/dL (33.0-37.0); Mean Corpuscular Volume 93.0 fL (80.0-94.0); Nucleated Red Blood Cells % 0 % (-); Platelet Count 256 10^3/uL (130-400); Red Cell Dist. Width 15.1 % (11.5-14.5)
[2025-07-13 23:30] LABS: ALT (SGPT) 36 U/L (0-50); AST (SGOT) 27 U/L (17-59); Albumin 3.9 g/dl (3.5-5.0); Alkaline Phosphatase 98 U/L (38-126); Blood Urea Nitrogen 18 mg/dl (9-20); Calcium 9.6 mg/dl (8.4-10.2); Carbon Dioxide 30 mmol/L (22-30); Chloride 100 mmol/L (98-107); Estimated Creatinine Clearance 94 ml/min; Glucose 236 mg/dl (70-99); Potassium 4.2 mmol/L (3.5-5.1); Sodium 136 mmol/L (135-145); Total Protein 6.7 g/dl (6.3-8.2); eGFR > 60.00
[2025-07-13 23:33] LABS: COVID-19 Antigen Negative (Negative)
[2025-07-13 23:35] LABS: APTT 26.2 Sec (23.4-35.0)
[2025-07-13 23:46] LABS: Troponin I 0.049 ng/ml
[2025-07-13 23:50] LABS: Urine White Cell 26-30 /HPF (0-5)
[2025-07-14] VITALS (13 sets, daily range): BP systolic 100–180; BP diastolic 62–104; BMI 24.8
--- NOTE | 2025-07-14 00:25 | ED.GENMED ---
History of Present Illness
General
Chief Complaint: Chest Pain
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 Has suffered multiple repeated non-STEMI's related to severe CAD not amenable to
intervention.)
Exam Limitations: none
Time Seen by Provider: 07/13/25 22:53
Nursing documentation reviewed up to this point in time: agreed with
History of Present Illness
History of Present Illness:
The patient is a 70-year-old male, a long-term resident of a local penitentiary, with a significant history of severe coronary artery disease (CAD) and has undergone coronary artery bypass grafting (CABG) in 1998. He has had multiple recent
hospitalizations for recurrent non-ST elevation myocardial infarctions (non-STEMIs) and cardiac catheterization revealed severe CAD, not amenable to revascularization. Medications have been continually adjusted due to persistent hypotension, which
has complicated goal-directed medical therapy.
The patient also has a history of chronic obstructive pulmonary disease (COPD) with chronic oxygen dependence and chronic shortness of breath. Additionally, he has severe peripheral vascular disease and dementia. Currently, he was sent to the
emergency department by penitentiary staff due to concerns of recurrent chest pain.
Upon EMS arrival, the patient denied experiencing chest pain and continues to deny it upon arrival at the facility. However, he describes that the previous episode of chest pain occurred along the left side, lasting for approximately half an hour
before subsiding. He reports being more short of breath than usual, accompanied by a cough, which produces sputum that is usually white and yellow and sometimes tinged with red. Recent changes to his medication regimen included the discontinuation
of spironolactone, raising concerns for possible congestive heart failure or pneumonia.
Past History
Past History
ED Past Medical History: Arrthythmia (Atrial fib), CAD, CHF, COPD, GERD, HTN, Hypercholesterolemia, IDDM, [place] (Non-STEMI December 2019), Valvular disease and Other (Back pain, Headaches, Sleep apnea, IBS, Pancreatitis, Ulcers, Gastritis, Anemia, )
ED Past Surgical History: Cardiac (CABG, PTCA with stent), Cholecystectomy (January 2016), Orthopedic (Right wrist surgery), Tonsilectomy and Other (hernia repair, endovascular AAA with bilateral femoral endarterectomy and profundoplasty 07/2018)
Social History
Tobacco: Former smoker
Alcohol: Former
Drug: None
Personal: Single
Living: penitentiary
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
Family History
Family History: Hypertension
Phy Exam
Physical Exam
Physical Exam:
GENERAL: 70-year-old gentleman appears somewhat older than stated age, he is bright and alert, pleasant, appears mildly tachypneic at rest otherwise in no acute distress. Oriented x 3. Easily communicative.
EYE: anicteric
NECK: Supple, nontender, no meningismus, no significant adenopathy. Mild JVD.
ENT: posterior pharynx is clear, oral mucosa is moist. TM clear b/l, nares patent.
CARDIAC: Regular rhythm, mildly tachycardic. no murmur.
LUNGS: Mild resting tachypnea, moderately decreased breath sounds bilaterally with rales left upper lobe. No chest wall tenderness.
ABDOMEN: Soft, nondistended, minimal tenderness left upper quadrant with deep palpation only, no CVA tenderness, normoactive BS.
NEUROLOGICAL: Alert and oriented x3, no focal neuro deficits.
SKIN: Warm and dry, normal color, skin intact. No rash.
MUSCULOSKELETAL: No C/C/E. peripheral pulses are full and equal b/l. No palpable tenderness.
PSYCH: Normal and appropriate interaction.
Scores
Heart Score for Chest Pain Patients
STEMI patient?: No
History: Moderately Suspicious
ECG: Significant ST-Depression
Age: >/= 65 years
Risk Factors: >/= 3 Risk Factors or History of CAD
Troponin: >/= 3 x Normal Limit
Heart Score for Chest Pain Patients: 9
Heart Score Risk: 72.7 % MACE over next 6 weeks
Course
Orders/Labs/Results
Orders:
Orders
09/19/25 22:43
EKG [Electrocardiogram (*1)] Urgent
Reason for Study: Chest Pain
EKG- Treatment ONCE
07/13/25 22:55
Complete Blood Count/With Diff Urgent
Comprehensive Metabolic Panel Urgent
NT-proBNP Urgent
Troponin I Urgent
Blood Culture Urgent
FLYNN Source: Blood/Venous
Specimen Description:
Date Specimen was Collected: 07/13/25
Time Specimen was Collected: 22:54
07/13/25 22:56
COVID-19 Antigen Urgent
Source: Nasal Swab
Lactic Acid Urgent
Urinalysis Reflex To Culture Urgent
Date Specimen was Collected: 07/13/25
Time Specimen was Collected: 22:54
Urine Microscopic Reflex Cult Urgent
Influenza A+B Rapid Molecular Urgent
FLYNN Source: Nasal Swab
Specimen Description:
Date Specimen was Collected: 07/13/25
Time Specimen was Collected: 22:54
Urine Culture Urgent
FLYNN Source: U
Specimen Description:
Date Specimen was Collected: 07/13/25
Time Specimen was Collected: 22:54
07/13/25 22:57
Blood Culture Urgent
FLYNN Source: Blood/Venous
Specimen Description:
07/13/25 23:15
PTT Urgent
07/14/25 00:24
CT Chest PE Study Urgent
Comment:
Reason For Exam: CP, SOB, tachycardia
07/14/25 01:43
Troponin I Urgent
07/14/25 02:30
Electrocardiogram (*1) Urgent
Reason for Study: Chest Pain
EKG- Treatment ONCE
07/14/25 03:35
Piperacillin/Tazo 3.375 Gram [Zosyn] 3.375 gram in 50 ml IV NOW
07/14/25 03:56
Admit/Transfer Patient As Directed
Co-Sign Provider:
Level of Care: Inpatient admission
Assign to:: Telemetry
Physician / Group: Shane
Diagnosis: NSTEMI / ACS, Pneumonia
Reason for Telemetry: Chest Pain syndromes
Date to Stop Telemetry: 07/16/25
Time to Stop Telemetry: 11:00
Reason for Hospitalization: NSTEMI / ACS, Pneumonia
Expected length of stay greater than two midnights?: Yes
ELOS- Estimated Length of Stay in days: 3
I certify the patient meets the requirements for IP care: Yes
PRN Pain Medication Management As Directed
May give lesser potent ordered pain med per pt: Yes
preference::
Protocol:: Medication orders for pain may be administered in a
manner that supports deferring to patient preference
when the pt is:
- Requesting an ordered lesser potent pain medication.
Least to most potent pain medications are defined
as: acetaminophen < NSAID < tramadol < opioids
(morphine, oxycodone, hydromorphone).
- Requesting a lesser dose of the same medication IF
ORDERED.
- Requesting a less intrusive route of administration
if both routes are prescribed by the provider (PO <
IV).
07/14/25 04:00
Code Status As Directed
Resuscitation Status: Do not resuscitate
Reached after discussion with pt or family/Healthcare POA: Yes
07/14/25 04:02
DNR Bracelet Application ONCE
07/14/25 Breakfast
2000 calorie (17 carb) Diabetic
At Your Request: Limited Participation
Fluid Restriction: 1440 mL/day (48 oz)
07/14/25 06:18
Troponin I Q6H
Acetaminophen [Tylenol] 650 mg PO Q4HPRN PRN
Albuterol Nebs [Ventolin Nebules] 2.5 mg INH R Q4HPRN PRN
Dextrose 50%-Water [Dextrose 50% Syringe] 12.5 grams IV [id number] PRN
Glucagon [GlucaGen] 1 mg IM PRN PRN
Heparin 4,000 units IV NOW STA
Heparin 82207 Units/250 ml 25,000 units in 250 ml IV PER PROTOCOL
Weight to be used for heparin protocol in kilograms (kg):: 73.9
Protocol:: Cardiac Tx/Acute Coronary
PTT Goal Range to be used:: PTT 73 to 111 seconds
Order type:: Initial
INITIAL Infusion Dose (UNITS/KG/hr) & then follow protocol:: 12 units/kg/hr
Infusion Dose in UNITS/hr & then follow protocol (UNITS/hr):: 900
INFUSION RATE in mL/hr & then follow protocol (mL/hr):: 9
PTT less than or equal to 64 seconds:: Increase rate by 200 units/hr (+ 2 mL/hr)
PTT 64.1 to 72.9 seconds:: Increase rate by 100 units/hr (+ 1 mL/hr)
PTT 73 to 111 seconds:: Target Range. No change in rate.
PTT 111.1 to 130.9 seconds:: Decrease rate by 100 units/hr (- 1 mL/hr)
PTT 131 to 199.9 seconds:: HOLD for 1 hr. Then decrease rate by 200 units/hr (- 2 mL/hr)
PTT greater than or equal to 200 seconds:: HOLD for 2 hrs & Notify Provider. Then decrease by 200 units/hr (-
2 mL/hr)
Lab follow-up:: Each change, PTT q6h until 2 consecutive are therapeutic. Then PTT
daily.
Lorazepam [Ativan] 0.5 mg PO TIDPRN PRN sleep/anxiety
Morphine Sulfate 2 mg IV Q4HPRN PRN
Nitroglycerin Sublingual [Nitrostat (Sublingual)] 0.4 mg SL [id number] PRN
Oxycodone [Roxicodone] 5 mg PO Q8HPRN PRN severe pain
07/14/25 06:18
CARDIOLOGY CONSULT Routine
Consulting Provider: Woo,Tab L
Was physician already notified: No
Reason for consult: NSTEMI / ACS
Consult Notification Routine
Specialty to Notify: Cardiology
Heparin Protocol- PTT Orders As Directed
PTT per Heparin protocol: -Obtain CBC and baseline PTT - if not already collected.
-Obtain PTT 6 hours from start of infusion. Then, every 6 hours until 2 consecutive
PTT's are therapeutic. Then, PTT Daily.
-With each rate change, obtain PTT every 6 hours until 2 consecutive PTT's are
therapeutic. Then, PTT Daily.
Activity As Directed
Activity Level: Out of Bed- Chair
With Assistance
Bedside Glucose Monitoring As Directed
Frequency: AC&HS
Additional Instructions:: Change to q6h if pt on TPN, tube feeding or not eating
EKG with chest pain [ECG as needed] As Directed
ECG as needed for:: Chest Pain
I/O [Intake/ Output] As Directed
Frequency: Per unit guidelines
Notify MD As Directed
Notify physician if: PTT is greater than or equal to 200.
Teds [Anti-embolism (SIS) Hose] As Directed
Type: Knee high
Vital Signs As Directed
Frequency: Per unit guidelines
Weight As Directed
Frequency: Daily
Oxygen Therapy [O2 Therapy] [RESP] Routine
Titrate/Wean O2 to maintain O2 sat greater than (%): 94
07/14/25 06:44
Complete Blood Count/No Diff Urgent
Comment: Obtain baseline before beginning heparin infusion if not already collected
PTT Urgent
Comment: Obtain baseline before beginning heparin infusion if not already collected
07/14/25 07:30
Insulin Aspart Corrective Low [Novolog Flexpen-Low Resistance] See Protocol SC AC
07/14/25 08:00
Aspirin Low Dose EC [Aspir Low (Enteric Coated)] 81 mg PO DAILY
Atorvastatin [Lipitor] 80 mg PO DAILY
Budesonide [Pulmicort] 0.5 mg INH R BID
Bupropion(24Hr)Extended Releas [WELLBUTRIN XL (24 hour extended release)] 300 mg PO DAILY
Carvedilol [Coreg] 3.125 mg PO BID
CefTRIAXone [Rocephin] 1,000 mg IV Q24H
Clopidogrel Bisulfate [Plavix] 75 mg PO DAILY
Doxycycline [Vibramycin] 100 mg PO Q12
Ferrous Sulfate [Feosol] 325 mg PO DAILY
Furosemide [Lasix] 20 mg PO DAILY
Guaifenesin [Mucinex] 600 mg PO Q12
ISOSORBIDE MONOnitrate ER [Imdur (Extended Release)] 120 mg PO DAILY
Midodrine [ProAmatine] 5 mg PO TID@0800,1300,1800
Nitroglycerin [Nitro-Dur] 0.2 mg TRANSDERM DAILY
Pantoprazole [Protonix] 40 mg PO DAILY
Polyethylene Glycol Powder [Miralax] 17 grams PO DAILY
Potassium Chloride [KCl] 20 meq PO DAILY
Prednisone [Deltasone] 10 mg PO DAILY
Ranolazine Extended Release [Ranexa Extended Release] 1,000 mg PO BID
Sennosides [Senokot] 17.2 mg PO BID
Sertraline HCl [Zoloft] 200 mg PO DAILY
Sodium Chloride 1,000 gram PO QID
07/14/25 12:18
Troponin I Q6H
07/14/25 18:18
Troponin I Q6H
07/14/25 22:00
Melatonin 3 mg PO HS
insulin glargine [Lantus U-100 Insulin] 7 unit SC HS
07/15/25 06:00
EKG [Electrocardiogram (*1)] IN AM
Reason for Study: Chest Pain
Basic Metabolic Panel IN AM
07/16/25 06:00
Complete Blood Count/No Diff Q2D
Comment: Notify MD if platelet count is <130,000 or decreases by 50% from baseline
07/16/25 11:00
DC Protocol for Telemetry ONCE
07/18/25 06:00
Complete Blood Count/No Diff Q2D
Comment: Notify MD if platelet count is <130,000 or decreases by 50% from baseline
07/20/25 06:00
Complete Blood Count/No Diff Q2D
Comment: Notify MD if platelet count is <130,000 or decreases by 50% from baseline
07/22/25 06:00
Complete Blood Count/No Diff Q2D
Comment: Notify MD if platelet count is <130,000 or decreases by 50% from baseline
07/24/25 06:00
Complete Blood Count/No Diff Q2D
Comment: Notify MD if platelet count is <130,000 or decreases by 50% from baseline
07/26/25 06:00
Complete Blood Count/No Diff Q2D
Comment: Notify MD if platelet count is <130,000 or decreases by 50% from baseline
07/28/25 06:00
Complete Blood Count/No Diff Q2D
Comment: Notify MD if platelet count is <130,000 or decreases by 50% from baseline
07/30/25 06:00
Complete Blood Count/No Diff Q2D
Comment: Notify MD if platelet count is <130,000 or decreases by 50% from baseline
Abnormal Lab Results
07/13/25 07/13/25 07/14/25
22:55 22:56 01:43
RBC 3.88 L 10^6/uL
(4.70-6.10)
Hgb 11.1 L g/dL
(13.0-18.0)
Hct 36.1 L %
(39.0-52.0)
MCHC 30.7 L g/dL
(33.0-37.0)
RDW 15.1 H %
(11.5-14.5)
Abs Immat Gran (auto) 0.1 H 10^3/uL
(0-0.05)
Absolute Lymphs (auto) 0.5 L 10^3/uL
(1.2-3.4)
Absolute Monos (auto) 0.9 H 10^3/uL
(0.1-0.6)
Immature Gran % 0.8 H %
(0-0.5)
Neutrophils % 79.2 H %
(42.2-75.2)
Lymphocytes % 7.0 L %
(20.5-51.1)
Monocytes % 12.8 H %
(1.7-9.3)
Glucose 236 H mg/dl
(70-99)
Troponin I 0.049 H* ng/ml 0.127 H* D ng/ml
Ur Occult Blood Reflex 3+ A
(Negative)
Urine Nitrite (Reflex) Positive A
(Negative)
Leukocyte Esterase Rfl 3+ A
(Negative)
Urine RBC 11-15 A /HPF
(0-2)
Urine WBC (Reflex) 26-30 A /HPF
(0-5)
Urine Bacteria (Reflex) Moderate A
(Negative)
Urine Albumin (Reflex) 1+ A
(Neg - Trace)
07/13/25 22:55
07/13/25 22:55
Vital Signs
Initial and Last Documented VS:
Initial Vital Signs
Temp Pulse Ox
98.7 F 95
07/13/25 22:44 07/13/25 22:44
Last Documented Vital Signs
Temp Pulse Resp BP Pulse Ox
97.4 F 80 18 120/72 100
07/14/25 06:25 07/14/25 06:25 07/14/25 06:25 07/14/25 06:25 07/14/25 06:25
MDM/Problems Addressed
MDM/Problems Addressed:
Acute Problems:
- Recurrent chest pain.
- Increased shortness of breath with productive cough.
Chronic Problems:
- Severe coronary artery disease. Not amenable to revascularization. Recurrent non-STEMI MIs
- COPD with chronic oxygen dependence.
- Severe peripheral vascular disease.
- Dementia
- Hypotension
- Consider chest x-ray versus CT of the chest/PE study due to concern with resting tachycardia which is new compared to previous EKG from earlier this month.
-Will check troponin as well as sepsis workup including COVID and influenza testing due to productive cough and concern for tachycardia. Will also add BNP, concern for an element of CHF.
- Monitor oxygen saturation and adjust as needed.
- Consider revisiting the medication regimen and the potential need to reinstate spironolactone if congestive heart failure is suspected.
- Continue monitoring vitals for potential cardiovascular events given the history of severe CAD and recent episodes of non-STEMIs.
Chronic conditions affecting care:
- Severe coronary artery disease.
- COPD with oxygen dependence.
- Severe peripheral vascular disease.
- Dementia.
- Hypotension
*Radiology
Radiology exam reviewed: radiology read reviewed
*Pulse Oximetry
SaO2: 97
Nasal Cannula flow liters per minute: 2
Patient hypoxic: no
*EKG
Interpreted by ED Provider?: Yes
Interpretation: abnormal
Comparison EKG: changes noted (Heart rate has increased from 73 to now 110 bpm compared to previous EKG July 03)
Rate: tachycardiac
Rhythm: sinus
[place]: normal axis
QRS Pattern: right bundle branch block
Ischemia: ST depression
*Television Production Technician Interpretation
Rate: tachycardiac
Interpretation: abnormal
Rhythm: sinus
*Critical Care Note
Total Time (30-74mins, 75-104mins- exclusive of procedures): Not Applicable
Update Note
Update Note:
03:35
Patient had brief return of chest pain, repeat EKG similar to previous. Chest pain has since resolved.
Initial troponin 0.049, has trended up to 0.127.
CBC is unremarkable, mild but stable anemia. Normal white blood cell count. Random glucose elevated at 236.
BNP mildly elevated at 1600, has trended up slightly from July 02 at 600.
Due to resting tachycardia, report of cough, concern for PE, CT of the chest/PE study obtained which shows no evidence of PE. Normal heart size. Severe calcified atherosclerosis of the coronary arteries. There is note of patchy subpleural ground
glass and trace consolidation right upper as well as right lower lobes which may be infectious versus inflammatory. There is also note of mild bronchial wall thickening concerning for bronchitis.
There is also note of potential UTI with urinalysis showing moderate bacteria, 26-30 WBCs, nitrite positive, leukocyte esterase positive.
Will admit to hospital service. Will initiate Zosyn for potential pneumonic process as well as coverage of potential UTI.
At this point, unclear as to endpoint for this patient's severe CAD that is not amenable to intervention.
ED Attending Note
-
Portions of this chart may have been created with voice recognition software.� Occasional wrong word or��sound alike� substitutions may have occurred due to the inherent limitations of voice recognition software.
Discharge Plan
Departure
Patient Disposition: Admit
Date of Disposition: 07/14/25
Time of Disposition: 03:34
Admit to: Telemetry
Admit to doctor: Shane
Presentation/result/management discussed w/ accepting MD/DO: Hospitalist
Condition: Fair
Discharge Problem:
Recurrent chest pain, severe, end-stage CAD, Pneumonia, Urinary tract infection
Interventions
Interventions:
*Risk Screen - Suicide Last Done: 07/13/25 22:44
*General Assessment Last Done: 07/13/25 22:44
*Neglect/Abuse Screening Last Done: 07/13/25 22:44
*ED- Fall Risk Assessment Last Done: 07/13/25 22:44
*ED COVID-19 Vaccine History Last Done: 07/13/25 22:44
*Nursing Disposition Last Done: 07/14/25 06:06
ED- Cardiac Assessment Last Done: 07/13/25 22:44
Discharge Date and Time
Discharge Date/Time: 07/14/25 06:06
[2025-07-14 02:30] LABS: Troponin I 0.127 ng/ml
--- NOTE | 2025-07-14 04:05 | HPS.HSE ---
Family Physician
-
Family Physician: Renan Pedroza DO
Chief Complaint
-
Chest Pain, Cough
History of Present Illness
Patient is a 70y M with PMH significant for severe ASCVD, DM-II and orthostatic hypotension who presents to ED complaining of chest pain and cough. Patient states that he had L sided chest pain this evening that lasted about one hour. His pain
was improved upon arrival to the ED and has not recurred. Patient also reports cough that has been productive of some white colored sputum. When asked how long the cough has been prsent - pateint states 'about a year'. He denies any fevers /
chills. No shortness of breath. He is inactive / chair-bound due to severe orthostasis at baseline.
He has had multiple recurrent admissions for ACS with known coronary disease that is unfortunately not amenable to intervention.
Medical History
Past Medical History
Past Medical History: Reports Other
Additional Past Medical History:
Coronary artery disease
Right carotid stenosis
Abdominal aortic aneurysm
Chronic HFpEF
Duodenal ulcer
Type 2 diabetes
COPD
Chronic Hypoxemic Respiratory Failure (3 lpm)
GERD
Hyperlipidemia
Hypertension
Atrial flutter
Orthostatic Hypotension
Past Surgical History: Reports Other
Additional Past Surgical History:
AAA repair
Femoral endarterectomy
Lap duncan
Coronary artery bypass graft x 4
A-Flutter ablation
Left Hip Hemiarthroplasty
Social History
Tobacco: Former Smoker
Alcohol: Former
Drug: None
Living: Senior Care
Family History
Family History: Not pertinent
Allergies / Home Medications
Allergies reflects when Allergies were last updated in [employer].
Home Medications with original date entered in [employer]
Allergy/Medication List:
Allergies
Allergy/AdvReac Type Severity Reaction Status Date / Time
lisinopril Allergy throat Verified 07/13/25 22:43
closes
Home Medications
atorvastatin 80 mg tablet 80 mg PO DAILY High cholesterol 07/02/23
ipratropium 0.5 mg-albuterol 3 mg (2.5 mg base)/3 mL nebulization soln 3 ml inhalation R QIDPRN PRN SOB 07/02/23
pantoprazole 40 mg tablet,delayed release 40 mg PO DAILY Gastrointestinal issue 07/02/23
prednisone 10 mg tablet 10 mg PO DAILY Anti-inflammatory #0 tabs 09/10/23
acetaminophen 325 mg tablet 650 mg PO Q4HPRN PRN mild pain/fever 12/08/24
bisacodyl 10 mg rectal suppository 10 mg CA [id number] PRN if mom ineffective 12/08/24
magnesium hydroxide 400 mg/5 mL oral suspension (Milk of Magnesia) 30 ml PO HSPRN PRN constipation 12/08/24
fluticasone propionate 50 mcg/actuation nasal spray,suspension 2 spray intranasal DAILYPRN PRN allergies 02/23/25
budesonide 0.5 mg/2 mL suspension for nebulization 0.5 mg inhalation R BID COPD 04/13/25
insulin aspart U-100 100 unit/mL (3 mL) subcutaneous pen 3 unit (0.03 mL) SC AC Diabetes #0 mL 04/16/25
nitroglycerin 0.2 mg/hr transdermal 24 hour patch 0.2 mg transdermal DAILY #0 ea 04/16/25
ascorbic acid (vitamin C) 500 mg tablet (Vitamin C) 500 mg PO DAILY Supplement #0 tabs 04/18/25
bupropion HCl 300 mg 24 hr tablet, extended release 300 mg PO DAILY Depression #0 tabs 04/18/25
dextromethorphan-guaifenesin 30 mg-600 mg tablet extended rdubyhb20 hr (Mucinex DM) 1 tab PO Q12H Congestion #0 tabs 04/18/25
furosemide 20 mg tablet 20 mg PO MOWEFR Fluid retention/Swelling #0 tabs 04/18/25
insulin glargine 100 unit/mL subcutaneous solution (Lantus U-100 Insulin) 7 unit (0.07 mL) SC HS Diabetes #0 mL 04/18/25
melatonin 3 mg tablet 3 mg PO HS Sleep #0 tabs 04/18/25
polyethylene glycol 3350 17 gram oral powder packet 17 g PO DAILY Constipation #0 ea 04/18/25
potassium chloride 20 mEq tablet,extended release(part/cryst) 20 meq PO DAILY Electrolyte Repletion #0 tabs 04/18/25
sertraline 100 mg tablet 200 mg PO DAILY depression/anxiety 05/07/25
sodium chloride 1 gram tablet 1,000 mg PO QID Supplement 05/07/25
ranolazine 500 mg tablet,extended release,12 hr 1,000 mg (2 x 500 mg) PO BID #120 tabs 05/10/25
azithromycin 250 mg tablet 250 mg PO MOWEFR skilled nursing 05/24/25
clopidogrel 75 mg tablet 75 mg PO DAILY Blood Clot Prevention/Tx 05/25/25
ferrous sulfate 325 mg (65 mg iron) tablet 325 mg PO DAILY Supplement 06/09/25
sennosides 8.6 mg tablet (senna) 17.2 mg PO BID Constipation 06/09/25
midodrine 5 mg tablet 5 mg PO TID@0800,1300,1800 #90 tabs 06/11/25
sodium phosphates 19 gram-7 gram/118 mL enema (Fleet Enema) 118 ml CA DAILYPRN PRN if no bm aftr dulcolax 07/02/25
carvedilol 3.125 mg tablet 3.125 mg PO BID 30 days #0 tabs 07/05/25
isosorbide mononitrate 60 mg tablet,extended release 24 hr 120 mg (2 x 60 mg) PO DAILY 30 days #60 tabs 07/05/25
lorazepam 0.5 mg tablet 0.5 mg PO TIDPRN PRN sleep/anxiety #4 tabs 07/05/25
oxycodone 5 mg tablet 5 mg PO Q8HPRN PRN severe pain #4 tabs 07/05/25
aspirin 81 mg tablet,delayed release 81 mg PO DAILY 07/14/25
lorazepam 0.5 mg tablet 0.5 mg PO DAILY 07/14/25
naloxone 4 mg/actuation nasal spray (Narcan) 4 mg intranasal Q3M PRN overdose 07/14/25
Review of Systems
-
History Source: Patient
A 12 point ROS was completed and negative except as noted: Yes
Constitutional: Reports Fatigue; Denies Fever or Chills
EENT: Denies Sore Throat
Respiratory: Reports Cough; Denies Trouble Breathing
Cardiac: Reports Chest Pain; Denies Diaphoresis or Palpitations
Abdomen/GI: Denies Abdominal Pain, Nausea, Vomiting or Diarrhea
: Denies Dysuria, Frequency or Flank Pain
Neurological: Reports Weakness; Denies Dizzy or Headache
Psych: Denies Depression or Anxiety
Physical Exam
Vital Signs
Vital Signs
Temp Pulse Resp BP Pulse Ox
100.2 F 85 21 124/77 99
07/13/25 22:56 07/14/25 03:30 07/14/25 03:30 07/14/25 03:00 07/14/25 03:30
Physical Exam
General: Other (70y M in no acute distress. Resting comfortably at present.)
HEENT: Moist mucous membranes, PERRLA and Other (Neck supple.)
Respiratory: Other (Decreased bilaterally - otherwise clear.)
Cardiac: S1/S2 (distant S1 S2.); No Murmur
GI: Soft, Non Tender, Non Distended and Normal Bowel Sounds
Musculoskeletal: No Clubbing, No Cyanosis and Other (Trace LE edema.)
Neuro: AO x 3
Laboratory Results
-
07/13/25 22:55
07/13/25 22:55
Laboratory Results
APTT 26.2 Sec (23.4-35.0) 07/13/25 23:15
Lactic Acid 1.3 mmol/L (0.7-2.0) 07/13/25 22:56
Total Bilirubin 0.3 mg/dl (0.2-1.3) 07/13/25 22:55
AST 27 U/L (17-59) 07/13/25 22:55
ALT 36 U/L (0-50) 07/13/25 22:55
Alkaline Phosphatase 98 U/L (38-126) 07/13/25 22:55
Troponin I 0.127 ng/ml H* D 07/14/25 01:43
Impression/Plan
-
A/P: Patient is a 70y M with PMH significant for severe ASCVD, DM-II and orthostatic hypotension who presents to ED complaining of chest pain and cough.
NSTEMI / ACS
ASCVD
- Admit for further evaluation and treatment.
- Begin Heparin infusion for now with known coronary disease and significant troponin elevation.
- Follow serial troponin to peak and monitor for any recurrent chest discomfort.
- EKG in the ED today with RBBB and non-specific ST-T changes in the anterolateral leads. No significant change from prior.
- Continue DAPT, statin, Imdur / Nitro-Dur, Ranexa, etc.
- Cardiology evaluation for additional recommendations - though it has been establish that patient is not a candidate for any interventions.
RUL / RLL Pneumonia
- CT done in the ED this evening negative for PE but shows ground glass changes in the RUL and RLL.
- Recent cough / mucus production. No leukocytosis, but pos L shift / bandemia.
- On chronic azithromycin for COPD. Will hold acutely and change to ceftriaxone / doxycycline.
- Nebs, mucolytics, etc.
- Follow for clinical changes.
Orthostatic Hypotension
- CV med titrations have been limited by hypotension / lightheadedness / etc.
- Continue midodrine and titrate as needed.
- Compression stockings.
COPD with Chronic Hypoxemic Respiratory Failure
- Patient on chronic prednisone and 3 lpm of O2.
- Continue current regimen including prednisone, inhaled medications, etc.
- Titrate O2 support as needed.
- Nebs ATC and PRN.
DM-II
- Stable. Continue basal insulin and cover with SSI as needed.
- A1C was 6.3% on 07/03/25.
Chronic HFpEF
- Stable. Patient does not appear grossly volume overloaded - though BNP is elevated from prior readings.
- Spironolactone discontinued during prior admission due to hypotension.
- Increase Lasix to daily for now.
- Follow I/Os, daily weights, etc.
- Adjust regimen as needed.
Anxiety / Depression
- Stable. Continue current medications.
GERD
- Stable. Continue PPI.
BPH
- Stable. Bladder scan protocol.
DVT Prophylaxis: On IV heparin at present.
Code Status: DNR
[2025-07-14] MEDS: ZOSYN 50 IV (04:09)
[2025-07-14] MEDS: HEPARIN 25000 UNITS/250 ML IV (06:35)
[2025-07-14] MEDS: HEPARIN 4000 UNITS IV (06:36)
[2025-07-14 07:47] LABS: Hematocrit 33.5 % (39.0-52.0); Hemoglobin 10.2 g/dL (13.0-18.0); Mean Corp Hgb Conc. 30.4 g/dL (33.0-37.0); Mean Corpuscular Volume 94.6 fL (80.0-94.0); Platelet Count 240 10^3/uL (130-400); Red Cell Dist. Width 15.2 % (11.5-14.5)
[2025-07-14] MEDS: RANEXA EXTENDED RELEASE 1000 MG PO ×2 (08:12→20:10)
[2025-07-14] MEDS: IMDUR (EXTENDED RELEASE) 120 MG PO (08:13)
[2025-07-14] MEDS: COREG 3.125 MG PO ×2 (08:13→20:10)
[2025-07-14] MEDS: VIBRAMYCIN 100 MG PO ×2 (08:13→20:11)
[2025-07-14] MEDS: SENOKOT 17.2 MG PO ×2 (08:14→20:11)
[2025-07-14] MEDS: DELTASONE 10 MG PO (08:14)
[2025-07-14] MEDS: ASPIR LOW (ENTERIC COATED) 81 MG PO (08:14)
[2025-07-14 08:15] LABS: Troponin I 0.195 ng/ml
[2025-07-14] MEDS: FEOSOL 325 MG PO (08:15)
[2025-07-14] MEDS: MUCINEX 600 MG PO ×2 (08:15→20:10)
[2025-07-14] MEDS: LASIX 20 MG PO (08:15)
[2025-07-14] MEDS: KCL 20 MEQ PO (08:15)
[2025-07-14] MEDS: LIPITOR 80 MG PO (08:15)
[2025-07-14] MEDS: PROTONIX 40 MG PO (08:15)
[2025-07-14] MEDS: PLAVIX 75 MG PO (08:15)
[2025-07-14 08:19] LABS: APTT 188.8 Sec (23.4-35.0)
[2025-07-14 08:19] LABS: Glucose - Point of Care 121 mg/dl (70-99)
[2025-07-14] MEDS: NOVOLOG FLEXPEN-LOW RESISTANCE SC (08:20)
[2025-07-14] MEDS: WELLBUTRIN XL (24 hour extended release) 300 MG PO (08:20)
[2025-07-14] MEDS: NITRO-DUR 0.2 MG TRANSDERM (08:21)
[2025-07-14] MEDS: MIRALAX 17 GRAMS PO (08:21)
[2025-07-14] MEDS: STERILE WATER FOR INJECTION 10 ML IV (08:22)
[2025-07-14] MEDS: ROCEPHIN 1000 MG IV (08:22)
[2025-07-14] MEDS: PULMICORT 0.5 MG INH ×2 (08:24→19:31)
[2025-07-14] MEDS: ZOLOFT 200 MG PO (08:41)
--- NOTE | 2025-07-14 09:00 | CON.CAR ---
Addendum entered and electronically signed by Memo Taveras DO 07/14/25 14:56:
I saw and examined the patient.
The Contract Associate's note was reviewed and I agree with the note.
Comment:
HPI: Justice is a 70-year-old male well-known to our service with past medical history significant for severe CAD, type 2 diabetes, orthostatic hypotension, recovered cardiomyopathy, paroxysmal atrial flutter, PAD, hypertension, hyperlipidemia,
chronic right bundle branch block. He has had multiple admissions over the past 3 months for chest pain and ruled in for non-ST elevation ME. Most recently was hospitalized 07/02/2025 - 07/05/2025 for non-ST elevation ME. He had a cardiac
catheterization on 04/17/2025 with a new OM lesion but felt to be high risk for intervention and medical management was advised. We have been uptitrating antianginals and patient is currently on Ranexa 1000 mg twice daily, Nitro-Dur patch 0.2 mg
daily, isosorbide mononitrate 120 mg daily, carvedilol 3.125 mg twice daily, Plavix 75 mg daily, ASA 81 mg daily, and Atorvastatin 80 mg daily
He presented to ED early this morning with chest pain and cough. He was sitting watching TV last night when he developed a squeezing left-sided chest pain radiating to his left arm that lasted about 5 minutes. He had a similar episode earlier in
the morning that self resolved after 5 minutes. 911 was called and by the time they arrived chest pain had resolved. He also reported feeling more short of breath accompanied by a cough with white sputum and was brought to the ED.
ED evaluation:
Initial EKG sinus tachycardia with right bundle branch block and nonspecific ST-T wave abnormality
Troponin: 0.049�0 0.127�0.195
Na 136, K 4.2, BUN/creat 18/0.7
[address] PE study: No PE, some opacities in right lung could represent pneumonitis.
Plan:
Limited options with regards to his CAD being nonrevascularizable
He is on a considerable regiment for any anginal therapy. Will add amlodipine to help with ongoing chronic intermittent chest pain. He has a history of chronic stable angina.
Continue to trend troponin until it peaks.
No recurrent chest discomfort.
His extensive antianginal regimen already includes isosorbide 120 mg daily, Nitropatch 0.2 mg daily, carvedilol 3.125 mg twice daily (had been on up to 12.5 mg twice daily) Ranexa 1000 mg twice daily
Monitor blood pressure while on amlodipine.
His medical therapy has been chronically limited by orthostasis. Continue midodrine 5 mg 3 times daily
Continue dual antiplatelet therapy
Remains sinus rhythm.
Check updated echocardiogram to reevaluate left ventricular systolic function Wednesday, July 16.
Outpatient cardiac follow-up already scheduled, has appointment on 08/07/2025 with Hillary Baird PA-C at [facility]
Original Note:
Consultation
Consultation Request
Date/Time Consultation Requested: 07/14/2025, 06
Date/Time Consultation Performed: 07/14/2025, 0900
Requesting Provider: Dr. Lynn
Performing Provider: JOSELO Patiño for Dr. Taveras
Reason for Consultation: chest pain
Medical History
-
Chief Complaint: Chest pain
History of Present Illness:
Justice is a 70-year-old male well-known to our service with past medical history significant for severe CAD, type 2 diabetes, orthostatic hypotension, recovered cardiomyopathy, paroxysmal atrial flutter, PAD, hypertension, hyperlipidemia, chronic
right bundle branch block. He has had multiple admissions over the past 3 months for chest pain and ruled in for non-ST elevation ME. Most recently was hospitalized 07/02/2025 - 07/05/2025 for non-ST elevation ME. He had a cardiac catheterization on
04/17/2025 with a new OM lesion but felt to be high risk for intervention and medical management was advised. We have been uptitrating antianginals and patient is currently on Ranexa 1000 mg twice daily, Nitro-Dur patch 0.2 mg daily, isosorbide
mononitrate 120 mg daily, carvedilol 3.125 mg twice daily, Plavix 75 mg daily, ASA 81 mg daily, and Atorvastatin 80 mg daily
He presented to ED early this morning with chest pain and cough. He was sitting watching TV last night when he developed a squeezing left-sided chest pain radiating to his left arm that lasted about 5 minutes. He had a similar episode earlier in
the morning that self resolved after 5 minutes. 911 was called and by the time they arrived chest pain had resolved. He also reported feeling more short of breath accompanied by a cough with white sputum and was brought to the ED.
ED evaluation:
Initial EKG sinus tachycardia with right bundle branch block and nonspecific ST-T wave abnormality
Troponin: 0.049�0 0.127�0.195
Na 136, K 4.2, BUN/creat 18/0.7
[address]BNP [address] PE study: No PE, some opacities in right lung could represent pneumonitis.
Patient admitted and started on a heparin drip. He has not had recurrent chest pain since admission.
He has had hypotension with orthostasis in the past which limited advancement of GDMT. He continues on midodrine 5 mg 3 times a day. Coreg was previously decreased to 3.125 mg twice daily (had been on Coreg 12.5 mg twice daily at one point) and
spironolactone was stopped.
I do not see that he has been on amlodipine in the past.
Patient has been to the hospital 7 times for chest pain, heart failure and a hip fracture over the last 8 months. Patient has known CAD and does not have many options due to OM lesion being distal to JONO graft and ANAM grafts are prone to
dissection and tortuosity and force will be required to deliver equipment which may increase this risk and if a complication occurs there would be limited treatment options. The OM is not small but is also not comparable to the LAD in vascular
territory or myocardium supplied.
PMH:
Recent admission for fall and hip fracture plus NSTEMI 05/24/2025 until 05/31/2025
Admission 07/02/2025 - 07/05/2025 for non-ST elevation ME
CAD
s/p CABG 1998 at [facility] with GAR to LAD and free JONO Y graft from GAR to OM
cath showed progression of lower [place] CAD however patent bypass grafts 12/2019
cath 03/2025 with new OM lesion, felt to be high risk for intervention, medically managed
Patient with CAD not felt to be amenable to revascularization per cardiac catheterization 04/17/2025
NSTEMI 05/26/25
NSTEMI 07/02/2025
History of recovered ischemic cardiomyopathy, EF 50 to 55% by echo 11/2024
Chronic HFpEF
h/o NSVT
Chronic orthostatic hypotension
Sinus tachycardia
Paroxysmal atrial flutter
s/p ablation in 2017Paroxysmal atrial fibrillation
diagnosed during 12/2019 admission without known recurrence
Not chronically anticoagulated due to patient's choice and low burden of atrial arrhythmia
PVD
h/o endovascular AAA repair and bilateral femoral artery endarterectomy and profundoplasty 07/2018
Type 2 diabetes
Hypertension
Hypercholesterolemia
Chronic right bundle-branch block
COPD on chronic supp O2, 3L
History of duodenal ulcer with microperforation in 2017
h/o daily ETOH use now abstinent
Former smoker
DNR
ECHO 09/06/23: Definity used, EF 45 to 50%, global hypokinesis, stage I diastolic dysfunction, mild MR, trace TR, PAP 25 to 30 mmHg
Echo 12/11/2024: EF 50 to 55%, no regional wall motion abnormalities, mild concentric LVH, no significant valvular disease
Echo 02/23/2025: EF 50%, mild to moderate concentric LVH, no significant valvular disease
Cath 04/17/25: GAR-LAD patent, JONO Y-graft GAR to OM with 95% distal stenosis.
Past Medical History
Past Medical History: Other (in HPI)
Past Surgical History: Cardiac (CABG 1998, atrial flutter ablation 2017), Cholecystectomy, Tonsilectomy and Other (endovascular AAA repair 2016)
Social History
Tobacco: Former Smoker
Alcohol: None (he says he stopped drinking)
Drug: None
Personal: Single
Living: [facility] ([facility]-term at [facility])
Family History
Family History: CAD and Cancer (lung cancer)
Allergies / Home Medications
Allergy/AdvReac Type Severity Reaction Status Date / Time
lisinopril Allergy throat Verified 07/13/25 22:43
closes
�Medication �Instructions �Recorded �Confirmed �Type
atorvastatin 80 mg tablet 80 mg PO DAILY High cholesterol 07/02/23 07/14/25 History
ipratropium 0.5 mg-albuterol 3 mg 3 ml inhalation R QIDPRN PRN SOB 07/02/23 07/14/25 History
(2.5 mg base)/3 mL nebulization
soln
pantoprazole 40 mg tablet,delayed 40 mg PO DAILY Gastrointestinal 07/02/23 07/14/25 History
release issue
prednisone 10 mg tablet 10 mg PO DAILY Anti-inflammatory 09/10/23 07/14/25 Rx
#0 tabs
acetaminophen 325 mg tablet 650 mg PO Q4HPRN PRN mild 12/08/24 07/14/25 History
pain/fever
bisacodyl 10 mg rectal suppository 10 mg MD [id number] PRN if mom 12/08/24 07/14/25 History
ineffective
magnesium hydroxide 400 mg/5 mL 30 ml PO HSPRN PRN constipation 12/08/24 07/14/25 History
oral suspension (Milk of Magnesia)
fluticasone propionate 50 2 spray intranasal DAILYPRN PRN 02/23/25 07/14/25 History
mcg/actuation nasal allergies
spray,suspension
budesonide 0.5 mg/2 mL suspension 0.5 mg inhalation R BID COPD 04/13/25 07/14/25 History
for nebulization
insulin aspart U-100 100 unit/mL 3 unit (0.03 mL) SC AC Diabetes #0 04/16/25 07/14/25 Rx
(3 mL) subcutaneous pen mL
nitroglycerin 0.2 mg/hr 0.2 mg transdermal DAILY #0 ea 04/16/25 07/14/25 Rx
transdermal 24 hour patch
ascorbic acid (vitamin C) 500 mg 500 mg PO DAILY Supplement #0 tabs 04/18/25 07/14/25 Rx
tablet (Vitamin C)
bupropion HCl 300 mg 24 hr tablet, 300 mg PO DAILY Depression #0 tabs 04/18/25 07/14/25 Rx
extended release
dextromethorphan-guaifenesin 30 1 tab PO Q12H Congestion #0 tabs 04/18/25 07/14/25 Rx
mg-600 mg tablet extended
[id number] hr (Mucinex DM)
furosemide 20 mg tablet 20 mg PO MOWEFR Fluid 04/18/25 07/14/25 Rx
retention/Swelling #0 tabs
insulin glargine 100 unit/mL 7 unit (0.07 mL) SC HS Diabetes #0 04/18/25 07/14/25 Rx
subcutaneous solution (Lantus mL
U-100 Insulin)
melatonin 3 mg tablet 3 mg PO HS Sleep #0 tabs 04/18/25 07/14/25 Rx
polyethylene glycol 3350 17 gram 17 g PO DAILY Constipation #0 ea 04/18/25 07/14/25 Rx
oral powder packet
potassium chloride 20 mEq 20 meq PO DAILY Electrolyte 04/18/25 07/14/25 Rx
tablet,extended release(part/cryst) Repletion #0 tabs
sertraline 100 mg tablet 200 mg PO DAILY depression/anxiety 05/07/25 07/14/25 History
sodium chloride 1 gram tablet 1,000 mg PO QID Supplement 05/07/25 07/14/25 History
ranolazine 500 mg tablet,extended 1,000 mg (2 x 500 mg) PO BID #120 05/10/25 07/14/25 Rx
release,12 hr tabs
azithromycin 250 mg tablet 250 mg PO MOWEFR group home 05/24/25 07/14/25 History
clopidogrel 75 mg tablet 75 mg PO DAILY Blood Clot 05/25/25 07/14/25 History
Prevention/Tx
ferrous sulfate 325 mg (65 mg 325 mg PO DAILY Supplement 06/09/25 07/14/25 History
iron) tablet
sennosides 8.6 mg tablet (senna) 17.2 mg PO BID Constipation 06/09/25 07/14/25 History
midodrine 5 mg tablet 5 mg PO TID@0800,1300,1800 #90 tabs 06/11/25 07/14/25 Rx
sodium phosphates 19 gram-7 118 ml MD DAILYPRN PRN if no bm 07/02/25 07/14/25 History
gram/118 mL enema (Fleet Enema) aftr dulcolax
carvedilol 3.125 mg tablet 3.125 mg PO BID 30 days #0 tabs 07/05/25 07/14/25 Rx
isosorbide mononitrate 60 mg 120 mg (2 x 60 mg) PO DAILY 30 07/05/25 07/14/25 Rx
tablet,extended release 24 hr days #60 tabs
lorazepam 0.5 mg tablet 0.5 mg PO TIDPRN PRN sleep/anxiety 07/05/25 07/14/25 Rx
#4 tabs
oxycodone 5 mg tablet 5 mg PO Q8HPRN PRN severe pain #4 07/05/25 07/14/25 Rx
tabs
aspirin 81 mg tablet,delayed 81 mg PO DAILY 07/14/25 07/14/25 History
release
lorazepam 0.5 mg tablet 0.5 mg PO DAILY 07/14/25 07/14/25 History
naloxone 4 mg/actuation nasal 4 mg intranasal Q3M PRN overdose 07/14/25 07/14/25 History
spray (Narcan)
Review of Systems
-
History Source: Patient
Constitutional: No Symptoms
Physical Exam
Vital Signs
Temp Pulse Resp BP Pulse Ox
97.5 F 80 16 162/88 97
07/14/25 07:58 07/14/25 08:26 07/14/25 08:26 07/14/25 07:58 07/14/25 08:26
Lab Results
07/14/25 06:44
07/13/25 22:55
Troponin I 0.195 ng/ml H* D 07/14/25 06:44
Jmx-M-Naczeszxodp Pept 1670 pg/ml 07/13/25 22:55
GEN: No distress, awake, Ox3
HEENT: supple, anicteric, mmm
LUNGS: few crackles bases
CV: Reg, S1/S2, no murmur
ABD: soft, BS+, NT/ND
EXT: No edema
NEURO: Gross non-focal
SKIN: No rash
Impression / Plan
-
Primary Train Operator: Dr. MILA Woo
Impression:
Admitted with recurrent chest pain and elevated Troponin 07/13/2025
CAD
s/p CABG 1998 at [facility] with GAR to LAD and free JONO Y graft from GAR to OM
cath showed progression of lower [place] CAD however patient bypass grafts 12/2019
cath 03/2025 with new OM lesion, felt to be high risk for intervention, medically managed
NSTEMI 05/26/25
NSTEMI 07/02/2025
History of recovered ischemic cardiomyopathy, EF 50 to 55% by echo 11/2024, EF 50% Echo 02/23/2025
Chronic HFpEF
h/o NSVT
Chronic orthostatic hypotension
Sinus tachycardia
Paroxysmal atrial flutter
s/p ablation in 2017Paroxysmal atrial fibrillation
diagnosed during 12/2019 admission without known recurrence
Not chronically anticoagulated due to patient's choice and low burden of atrial arrhythmia
PVD
h/o endovascular AAA repair and bilateral femoral artery endarterectomy and profundoplasty 07/2018
Type 2 diabetes
Hypertension
Hypercholesterolemia
Chronic right bundle-branch block
COPD on chronic supp O2, 3L
History of duodenal ulcer with microperforation in 2018
h/o daily ETOH use now abstinent
Former smoker
h/o fall and hip fracture plus NSTEMI 05/24/2025 until 05/31/2025
DNR
ECHO 09/06/23: Definity used, EF 45 to 50%, global hypokinesis, stage I diastolic dysfunction, mild MR, trace TR, PAP 25 to 30 mmHg
Echo 12/11/2024: EF 50 to 55%, no regional wall motion abnormalities, mild concentric LVH, no significant valvular disease
Echo 02/23/2025: EF 50%, mild to moderate concentric LVH, no significant valvular disease
Cath 04/17/25: GAR-LAD patent, JONO Y-graft GAR to OM with 95% distal stenosis.
Plan:
-Trend troponin to peak
-EKG normal sinus rhythm with right bundle branch block and stable ST-T wave abnormality.
- He is without chest pain overnight
- He has known unrevascularizable CAD
-already on extensive antianginal regimen including isosorbide 120 mg daily, Nitropatch 0.2 mg daily, carvedilol 3.125 mg twice daily (had been on up to 12.5 mg twice daily) Ranexa 1000 mg twice daily
-Will add low-dose of amlodipine 2.5 mg daily. Blood pressure currently acceptable/borderline elevated and should be able to tolerate this
- Historically medical therapy has been limited by orthostasis, follow on midodrine 5mg TID
- Continue aspirin, Plavix
- In sinus rhythm on review of telemetry
-Will check updated echocardiogram on Wednesday
- outpatient cardiac follow-up already scheduled, has appointment on 08/07/2025 with Hillary Baird PA-C at [facility]
Justice is a 70-year-old male well-known to our service with past medical history significant for severe CAD, type 2 diabetes, orthostatic hypotension, recovered cardiomyopathy, paroxysmal atrial flutter, PAD, hypertension, hyperlipidemia, chronic
right bundle branch block. He has had multiple admissions over the past 3 months for chest pain and ruled in for non-ST elevation ME. Most recently was hospitalized 07/02/2025 - 07/05/2025 for non-ST elevation ME. He had a cardiac catheterization on
04/17/2025 with a new OM lesion but felt to be high risk for intervention and medical management was advised. We have been uptitrating antianginals and patient is currently on Ranexa 1000 mg twice daily, Nitro-Dur patch 0.2 mg daily, isosorbide
mononitrate 120 mg daily, carvedilol 3.125 mg twice daily, Plavix 75 mg daily, ASA 81 mg daily, and Atorvastatin 80 mg daily
He presented to ED early this morning with chest pain and cough. He was sitting watching TV last night when he developed a squeezing left-sided chest pain radiating to his left arm that lasted about 5 minutes. He had a similar episode earlier in
the morning that self resolved after 5 minutes. 911 was called and by the time they arrived chest pain had resolved. He also reported feeling more short of breath accompanied by a cough with white sputum and was brought to the ED.
Data Reviewed
-
EKG: Tracing Personally Visualized and interpreted
Medical Tests (Nuc Med, Echo etc): Image Personally Visualized and interpreted
Labs: Labs Reviewed by me
Old Records: Reviewed
[2025-07-14] MEDS: NORVASC 2.5 MG PO (11:36)
[2025-07-14 11:39] LABS: Glucose - Point of Care 161 mg/dl (70-99)
--- NOTE | 2025-07-14 11:51 | W.PN.HOSP.TC ---
Today's Communication/Plan
-
Continue current care
Assessment / Plan
Assessment / Plan
Gen-AAOx3, NAD
HEENT-NC, AT, anicteric, clear oral mm
Neck-supple
CV-reg, no M, +S1/S2
Lungs-clear B/L
Abd-soft, NT, ND
Ext-no edema
Musculoskeletal-no cyanosis, clubbing
Skin-warm and dry
Neuro-grossly non-focal
Psych-calm, cooperative
Presumed community-acquired pneumonia -continue antibiotics. CT chest shows right-sided pneumonitis. He does have a cough but states it is chronic and has not changed.
No significant signs or symptoms of sepsis. COVID and influenza negative. Blood cultures pending.
NSTEMI -presentation with troponin elevation, chest pain. Known CAD not amenable to revascularization.
Troponin still rising. Cardiology following. Currently on IV heparin.
Echocardiogram on Wednesday.
History of CAD/CABG -not amenable to further revascularization as per cardiology.
COPD without exacerbation -oxygen dependent, 3 L/min. Chronic hypoxic respiratory failure due to COPD. Resume chronic azithromycin after completion of antibiotics for pneumonia.
Chronic heart failure preserved EF -stable.
Paroxysmal atrial flutter/fibrillation -not on chronic anticoagulation by patient choice and low burden of atrial arrhythmia as noted by cardiology.
Had ablation in 2018.
DM 2 without hyperglycemia -at home he is on Lantus 7 units at bedtime, aspart 3 units with meals.
Essential hypertension -stable.
Hyperlipidemia -atorvastatin.
Abdominal aortic aneurysm
History of duodenal ulcer, microperforation -2018.
Chronic orthostatic hypotension -limits medical management of heart disease. Continue teds compression stockings, midodrine.
DNR
Dispo -back to [facility] when medically stable.
Anticipated Discharge: 24 - 48 hours
Subjective/Interval History
-
Date of Service: July 14, 2025
Patient seen and examined, no complaints. Denies chest pain.
Objective Data
-
Labs:
Laboratory Results
07/14/25 07/14/25 07/14/25
06:44 12:40 15:40
WBC 5.9
Hgb 10.2 L
Hct 33.5 L
Plt Count 240
APTT 188.8 H* Cancelled Pending
Vital Signs:
Vital Signs
Temp Pulse Resp BP Pulse Ox
98.1 F 93 16 111/67 99
07/14/25 11:30 07/14/25 11:30 07/14/25 11:30 07/14/25 11:30 07/14/25 11:30
Review of Systems
-
History Source: Patient
All other systems: Reviewed and negative
[2025-07-14] MEDS: NOVOLOG FLEXPEN-LOW RESISTANCE 1 UNITS SC ×2 (12:38→17:18)
[2025-07-14] MEDS: SODIUM CHLORIDE 1 GRAM PO ×3 (12:40→21:30)
[2025-07-14 13:37] LABS: Troponin I 0.132 ng/ml
[2025-07-14 15:36] LABS: Glucose - Point of Care 185 mg/dl (70-99)
[2025-07-14 16:02] LABS: APTT 23.6 Sec (23.4-35.0)
[2025-07-14 18:11] LABS: APTT 19.2 Sec (23.4-35.0)
[2025-07-14 18:17] LABS: Troponin I 0.093 ng/ml
[2025-07-14] MEDS: VENTOLIN NEBULES 2.5 MG INH (19:34)
[2025-07-14] MEDS: TYLENOL 650 MG PO (20:11)
[2025-07-14 21:27] LABS: Glucose - Point of Care 313 mg/dl (70-99)
[2025-07-14] MEDS: LANTUS 0.07 UNITS SC (21:29)
[2025-07-14] MEDS: MELATONIN 3 MG PO (21:30)
[2025-07-15 00:03] VITALS: BP 127/71
[2025-07-15 00:08] LABS: APTT 36.2 Sec (23.4-35.0)
--- NOTE | 2025-07-15 02:04 | PTCARENOTE ---
Patient received in bed upon change of shift. Vogel cath in place and draining yellow urine. No signs of distress noted. Heparin gtt infusing at 9 ml/hr at start of shift call kuhn with in reach.
[2025-07-15] MEDS: TYLENOL 650 MG PO ×2 (03:00→20:18)
[2025-07-15 03:32] VITALS: BP 105/68
[2025-07-15 06:00] VITALS: BMI 25.6
[2025-07-15 06:40] LABS: APTT 49.6 Sec (23.4-35.0)
[2025-07-15 06:57] LABS: Blood Urea Nitrogen 16 mg/dl (9-20); Calcium 8.7 mg/dl (8.4-10.2); Carbon Dioxide 31 mmol/L (22-30); Chloride 104 mmol/L (98-107); Estimated Creatinine Clearance 106 ml/min; Glucose 89 mg/dl (70-99); Potassium 4.5 mmol/L (3.5-5.1); Sodium 139 mmol/L (135-145); eGFR > 60.00
[2025-07-15 07:10] VITALS: BP 149/85
[2025-07-15] MEDS: PULMICORT 0.5 MG INH ×2 (07:19→20:16)
--- NOTE | 2025-07-15 09:06 | W.PN.HOSP.TC ---
Addendum entered and electronically signed by Ky Cruz DO 07/15/25 09:22:
Cardiology okay with discontinuing IV heparin.
Original Note:
Today's Communication/Plan
-
PT/OT
Echocardiogram
Continue antibiotics
Assessment / Plan
Assessment / Plan
Gen-AAOx3, NAD
HEENT-NC, AT, anicteric, clear oral mm
Neck-supple
CV-reg, no M, +S1/S2
Lungs-clear B/L
Abd-soft, NT, ND
Ext-no edema
Musculoskeletal-no cyanosis, clubbing
Skin-warm and dry
Neuro-grossly non-focal
Psych-calm, cooperative
Presumed community-acquired pneumonia -continue antibiotics. CT chest shows right-sided pneumonitis. He does have a cough but states it is chronic and has not changed.
No significant signs or symptoms of sepsis. COVID and influenza negative. Blood cultures negative so far.
NSTEMI -presentation with troponin elevation, chest pain. Known CAD not amenable to revascularization.
Troponin trended down. Cardiology following. Currently on IV heparin, can discontinue if okay with cardiology. He is chest pain-free.
Echocardiogram on Wednesday.
History of CAD/CABG -not amenable to further revascularization as per cardiology.
COPD without exacerbation -oxygen dependent, 3 L/min. Chronic hypoxic respiratory failure due to COPD. Resume chronic azithromycin after completion of antibiotics for pneumonia.
Chronic heart failure preserved EF -stable.
Paroxysmal atrial flutter/fibrillation -not on chronic anticoagulation by patient choice and low burden of atrial arrhythmia as noted by cardiology.
Had ablation in 2018.
DM 2 without hyperglycemia -at home he is on Lantus 7 units at bedtime, aspart 3 units with meals.
Essential hypertension -stable.
Hyperlipidemia -atorvastatin.
Abdominal aortic aneurysm
History of duodenal ulcer, microperforation -2018.
Chronic orthostatic hypotension -limits medical management of heart disease. Continue teds compression stockings, midodrine.
Chronic anemia -hemoglobin at baseline.
DNR
[facility]
Consult PT/OT
Anticipated Discharge: Within 24 hours
Subjective/Interval History
-
Date of Service: July 15, 2025
Patient seen and examined. No complaints.
Objective Data
-
Labs:
Laboratory Results
07/14/25 07/15/25 07/15/25
23:49 06:20 14:30
APTT 36.2 H 49.6 H Pending
Sodium 139
Potassium 4.5
Chloride 104
Carbon Dioxide 31 H
BUN 16
Creatinine 0.5 L
Glucose 89
Calcium 8.7
Vital Signs:
Vital Signs
Temp Pulse Resp BP Pulse Ox
97.6 F 84 16 149/85 99
07/15/25 07:10 07/15/25 07:22 07/15/25 07:22 07/15/25 07:10 07/15/25 07:22
I&O
07/14/25 07/15/25 07/16/25
06:59 06:59 06:59
Intake Total 240 / 240
Output Total 475 / 475
Balance -235 / -235
Review of Systems
-
History Source: Patient
All other systems: Reviewed and negative
--- NOTE | 2025-07-15 09:20 | W.PN.CARDCBS ---
Today's Communication / Plan
-
No new chest pains. Continue medical therapy for severe coronary artery disease.
Will stop IV heparin.
Check repeat echo in AM.
Continue Phcul998 daily, Nitropatch 0.2, Coreg 3.125mg po bid, Norvasc 2.5 daily
Continue aspirin, Plavix, atorvastatin.
Continue midodrine for blood pressure support. Blood pressure overall stable.
If echo stable hopeful for discharge in a.m.
Impression / Plan
-
Primary Curtain Cutter Hand: Dr. MILA Woo
Impression:
Admitted with recurrent chest pain and elevated Troponin 07/13/2025
CAD
s/p CABG 1998 at [facility] with GAR to LAD and free JONO Y graft from GAR to OM
cath showed progression of [place] CAD however patient bypass grafts 12/2019
cath 03/2025 with new OM lesion, felt to be high risk for intervention, medically managed
NSTEMI 05/26/25
NSTEMI 07/02/2025
History of recovered ischemic cardiomyopathy, EF 50 to 55% by echo 11/2024, EF 50% Echo 02/23/2025
Chronic HFpEF
h/o NSVT
Chronic orthostatic hypotension
Sinus tachycardia
Paroxysmal atrial flutter
s/p ablation in 2017Paroxysmal atrial fibrillation
diagnosed during 12/2019 admission without known recurrence
Not chronically anticoagulated due to patient's choice and low burden of atrial arrhythmia
PVD
h/o endovascular AAA repair and bilateral femoral artery endarterectomy and profundoplasty 07/2018
Type 2 diabetes
Hypertension
Hypercholesterolemia
Chronic right bundle-branch block
COPD on chronic supp O2, 3L
History of duodenal ulcer with microperforation in 2018
h/o daily ETOH use now abstinent
Former smoker
h/o fall and hip fracture plus NSTEMI 05/24/2025 until 05/31/2025
DNR
ECHO 09/06/23: Definity used, EF 45 to 50%, global hypokinesis, stage I diastolic dysfunction, mild MR, trace TR, PAP 25 to 30 mmHg
Echo 12/11/2024: EF 50 to 55%, no regional wall motion abnormalities, mild concentric LVH, no significant valvular disease
Echo 02/23/2025: EF 50%, mild to moderate concentric LVH, no significant valvular disease
Cath 04/17/25: GAR-LAD patent, JONO Y-graft GAR to OM with 95% distal stenosis.
Plan:
-Troponin peaked and trending down.
-EKG normal sinus rhythm with right bundle branch block and stable ST-T wave abnormality.
- He is without chest pain overnight. D/C IV heparin
- He has known unrevascularizable CAD
-already on extensive antianginal regimen including isosorbide 120 mg daily, Nitropatch 0.2 mg daily, carvedilol 3.125 mg twice daily (had been on up to 12.5 mg twice daily) Ranexa 1000 mg twice daily
-Cont new low-dose of amlodipine 2.5 mg daily. Blood pressure stable.
- Historically medical therapy has been limited by orthostasis, follow on midodrine 5mg TID
- Continue aspirin, Plavix
- In sinus rhythm on review of telemetry
-Will check updated echocardiogram on Wednesday
- outpatient cardiac follow-up already scheduled, has appointment on 08/07/2025 with Hillary Baird PA-C at [facility]
Justice is a 70-year-old male well-known to our service with past medical history significant for severe CAD, type 2 diabetes, orthostatic hypotension, recovered cardiomyopathy, paroxysmal atrial flutter, PAD, hypertension, hyperlipidemia, chronic
right bundle branch block. He has had multiple admissions over the past 3 months for chest pain and ruled in for non-ST elevation MN. Most recently was hospitalized 07/02/2025 - 07/05/2025 for non-ST elevation MN. He had a cardiac catheterization on
04/17/2025 with a new OM lesion but felt to be high risk for intervention and medical management was advised. We have been uptitrating antianginals and patient is currently on Ranexa 1000 mg twice daily, Nitro-Dur patch 0.2 mg daily, isosorbide
mononitrate 120 mg daily, carvedilol 3.125 mg twice daily, Plavix 75 mg daily, ASA 81 mg daily, and Atorvastatin 80 mg daily
He presented to ED early this morning with chest pain and cough. He was sitting watching TV last night when he developed a squeezing left-sided chest pain radiating to his left arm that lasted about 5 minutes. He had a similar episode earlier in
the morning that self resolved after 5 minutes. 911 was called and by the time they arrived chest pain had resolved. He also reported feeling more short of breath accompanied by a cough with white sputum and was brought to the ED.
Progress Note - Curtain Cutter Hand
Subjective
Date of Service: July 15, 2025
no new chest pains.
Objective
Labs:
07/14/25 06:44
07/15/25 06:20
Labs
Hgb 10.2 g/dL (13.0-18.0) L 07/14/25 06:44
Hct 33.5 % (39.0-52.0) L 07/14/25 06:44
Plt Count 240 10^3/uL (130-400) 07/14/25 06:44
APTT 49.6 Sec (23.4-35.0) H 07/15/25 06:20
Sodium 139 mmol/L (135-145) 07/15/25 06:20
Potassium 4.5 mmol/L (3.5-5.1) 07/15/25 06:20
BUN 16 mg/dl (9-20) 07/15/25 06:20
Creatinine 0.5 mg/dL (0.7-1.3) L 07/15/25 06:20
Glucose 89 mg/dl (70-99) 07/15/25 06:20
Troponins
07/13/25 07/14/25 07/14/25
22:55 01:43 06:44
Troponin I 0.049 H* 0.127 H* D 0.195 H* D
07/14/25 07/14/25
12:40 17:27
Troponin I 0.132 H* D 0.093 H* D
Vital Signs and I&O:
Vital Signs
Temp Pulse Resp BP Pulse Ox
97.6 F 84 16 149/85 99
07/15/25 07:10 07/15/25 07:22 07/15/25 07:22 07/15/25 07:10 07/15/25 07:22
Vital Signs
Temp Pulse Resp BP Pulse Ox
97.6 F 84 16 149/85 99
07/15/25 07:10 07/15/25 07:22 07/15/25 07:22 07/15/25 07:10 07/15/25 07:22
Intake & Output
07/13/25 07/14/25 07/15/25 07/16/25
06:59 06:59 06:59 06:59
Intake Total 240 / 240
Output Total 475 / 475
Balance -235 / -235
Physical Exam
Physical Exam
GEN: No distress, awake, Ox3
HEENT: supple, anicteric, mmm
LUNGS: CTA, no wheezes/rales
CV: Reg, S1/S2, 1/6 syst LSB, no gallop
ABD: soft, BS+, NT/ND
EXT: No edema
NEURO: Gross non-focal
SKIN: No rash
[2025-07-15 09:23] LABS: Glucose - Point of Care 134 mg/dl (70-99)
[2025-07-15] MEDS: NOVOLOG FLEXPEN-LOW RESISTANCE SC (09:37)
[2025-07-15] MEDS: FEOSOL 325 MG PO (09:50)
[2025-07-15] MEDS: ASPIR LOW (ENTERIC COATED) 81 MG PO (09:50)
[2025-07-15] MEDS: IMDUR (EXTENDED RELEASE) 120 MG PO (09:50)
[2025-07-15] MEDS: DELTASONE 10 MG PO (09:50)
[2025-07-15] MEDS: COREG 3.125 MG PO ×2 (09:50→20:18)
[2025-07-15] MEDS: MUCINEX 600 MG PO ×2 (09:51→20:18)
[2025-07-15] MEDS: KCL 20 MEQ PO (09:51)
[2025-07-15] MEDS: NITRO-DUR 0.2 MG TRANSDERM (09:51)
[2025-07-15] MEDS: LIPITOR 80 MG PO (09:51)
[2025-07-15] MEDS: LASIX 20 MG PO (09:51)
[2025-07-15] MEDS: MIRALAX 17 GRAMS PO (09:51)
[2025-07-15] MEDS: RANEXA EXTENDED RELEASE 1000 MG PO ×2 (09:52→20:18)
[2025-07-15] MEDS: NORVASC 2.5 MG PO (09:52)
[2025-07-15] MEDS: PLAVIX 75 MG PO (09:52)
[2025-07-15] MEDS: PROTONIX 40 MG PO (09:52)
[2025-07-15] MEDS: ROCEPHIN 1000 MG IV (09:52)
[2025-07-15] MEDS: SODIUM CHLORIDE 1 GRAM PO ×4 (09:53→20:19)
[2025-07-15] MEDS: WELLBUTRIN XL (24 hour extended release) 300 MG PO (09:53)
[2025-07-15] MEDS: VIBRAMYCIN 100 MG PO ×2 (09:53→20:18)
[2025-07-15] MEDS: SENOKOT 17.2 MG PO ×2 (09:53→20:18)
[2025-07-15] MEDS: STERILE WATER FOR INJECTION 10 ML IV (09:53)
[2025-07-15] MEDS: ZOLOFT 200 MG PO (09:53)
--- NOTE | 2025-07-15 10:10 | PTCARENOTE ---
Heparin drip discontinued per order.
--- NOTE | 2025-07-15 11:10 | CM ---
CM met with pt at bedside who confirms he presents from [facility] and plan is to return when stable for [place].
[facility] Mildred.
Per Mildred, pt is mildly confused at baseline. Can be impulsive. Just recently moved to their dementia unit. WC bound- can self propel. Assist for adl's.
Inquired about family involvement and told there is a sister involved.
Discharge dispo-return to [facility] at [place]. Will need BLS transport.
Nelsy Reyes report # [phone]
fax # [phone]
Will send referral via [facility] for return when stable.
[2025-07-15 11:30] VITALS: BP 108/63
[2025-07-15 12:05] LABS: Glucose - Point of Care 236 mg/dl (70-99)
[2025-07-15] MEDS: NOVOLOG FLEXPEN-LOW RESISTANCE 2 UNITS SC (13:02)
[2025-07-15 15:25] VITALS: BP 164/87
[2025-07-15 17:32] LABS: Glucose - Point of Care 173 mg/dl (70-99)
[2025-07-15] MEDS: NOVOLOG FLEXPEN-LOW RESISTANCE 1 UNITS SC (17:58)
[2025-07-15 19:00] VITALS: BP 164/99
[2025-07-15] MEDS: VENTOLIN NEBULES 2.5 MG INH (20:16)
[2025-07-15] MEDS: ATIVAN 0.5 MG PO (20:19)
[2025-07-15] MEDS: MELATONIN 3 MG PO (20:19)
[2025-07-15 21:04] LABS: Glucose - Point of Care 326 mg/dl (70-99)
[2025-07-15] MEDS: LANTUS 0.07 UNITS SC (21:12)
[2025-07-16] VITALS (11 sets, daily range): BP systolic 72–177; BP diastolic 50–96; PULSE 91–108; O2SAT 98; BMI 24.1
[2025-07-16] MEDS: TYLENOL 650 MG PO ×3 (01:52→21:25)
[2025-07-16 07:22] LABS: Glucose - Point of Care 132 mg/dl (70-99)
[2025-07-16] MEDS: PULMICORT 0.5 MG INH ×2 (07:39→19:30)
[2025-07-16] MEDS: VENTOLIN NEBULES 2.5 MG INH ×2 (07:39→12:54)
[2025-07-16] MEDS: NOVOLOG FLEXPEN-LOW RESISTANCE SC (07:41)
[2025-07-16] MEDS: RANEXA EXTENDED RELEASE 1000 MG PO ×2 (07:42→19:48)
[2025-07-16] MEDS: IMDUR (EXTENDED RELEASE) 120 MG PO (07:42)
[2025-07-16] MEDS: DELTASONE 10 MG PO (07:42)
[2025-07-16] MEDS: SENOKOT 17.2 MG PO ×2 (07:43→19:45)
[2025-07-16] MEDS: PROTONIX 40 MG PO (07:43)
[2025-07-16] MEDS: LASIX 20 MG PO (07:44)
[2025-07-16] MEDS: SODIUM CHLORIDE 1 GRAM PO ×4 (07:44→21:22)
[2025-07-16] MEDS: FEOSOL 325 MG PO (07:44)
[2025-07-16] MEDS: ASPIR LOW (ENTERIC COATED) 81 MG PO (07:44)
[2025-07-16] MEDS: PLAVIX 75 MG PO (07:44)
[2025-07-16] MEDS: KCL 20 MEQ PO (07:44)
[2025-07-16] MEDS: NORVASC 2.5 MG PO (07:45)
[2025-07-16] MEDS: VIBRAMYCIN 100 MG PO ×2 (07:45→19:45)
[2025-07-16] MEDS: ZOLOFT 200 MG PO (07:45)
[2025-07-16] MEDS: MUCINEX 600 MG PO ×2 (07:45→19:45)
[2025-07-16] MEDS: LIPITOR 80 MG PO (07:45)
[2025-07-16] MEDS: MIRALAX 17 GRAMS PO (07:46)
[2025-07-16] MEDS: COREG 3.125 MG PO ×2 (07:46→19:45)
[2025-07-16] MEDS: NITRO-DUR 0.2 MG TRANSDERM (07:46)
[2025-07-16] MEDS: ROCEPHIN 1000 MG IV (07:47)
[2025-07-16] MEDS: STERILE WATER FOR INJECTION 10 ML IV ×3 (07:47→21:21)
[2025-07-16] MEDS: WELLBUTRIN XL (24 hour extended release) 300 MG PO (07:51)
--- NOTE | 2025-07-16 10:41 | CARDSERVLU ---
Echocardiogram with Lumason completed after protocol screening completed. Allergies verified.
Patent IV site: _Left wrist 20 G PC site clear____
IV site flushed with 0.9% NaCl pre and post administration.
Diluted bolus method utilized to enhance visualization of ventricular godinez.
Total volume given: __5__ mL
Patient tolerated all procedures well without complications.
--- NOTE | 2025-07-16 11:16 | W.PN.CARDCBS ---
Today's Communication / Plan
-
Stable cardiology status with no further chest pain
Check echo and if stable will be okay for discharge
Follow-up has been arranged
Impression / Plan
-
Primary Boss Miner: Dr. MILA Woo
Impression:
Admitted with recurrent chest pain and elevated Troponin 07/13/2025
CAD
s/p CABG 1998 at [facility] with GAR to LAD and free JONO Y graft from GAR to OM
cath showed progression of [place] CAD however patient bypass grafts 12/2019
cath 03/2025 with new OM lesion, felt to be high risk for intervention, medically managed
NSTEMI 05/26/25
NSTEMI 07/02/2025
History of recovered ischemic cardiomyopathy, EF 50 to 55% by echo 11/2024, EF 50% Echo 02/23/2025
Chronic HFpEF
h/o NSVT
Chronic orthostatic hypotension
Sinus tachycardia
Paroxysmal atrial flutter
s/p ablation in 2018Paroxysmal atrial fibrillation
diagnosed during 12/2019 admission without known recurrence
Not chronically anticoagulated due to patient's choice and low burden of atrial arrhythmia
PVD
h/o endovascular AAA repair and bilateral femoral artery endarterectomy and profundoplasty 07/2018
Type 2 diabetes
Hypertension
Hypercholesterolemia
Chronic right bundle-branch block
COPD on chronic supp O2, 3L
History of duodenal ulcer with microperforation in 2018
h/o daily ETOH use now abstinent
Former smoker
h/o fall and hip fracture plus NSTEMI 05/24/2025 until 05/31/2025
DNR
ECHO 09/06/23: Definity used, EF 45 to 50%, global hypokinesis, stage I diastolic dysfunction, mild MR, trace TR, PAP 25 to 30 mmHg
Echo 12/11/2024: EF 50 to 55%, no regional wall motion abnormalities, mild concentric LVH, no significant valvular disease
Echo 02/23/2025: EF 50%, mild to moderate concentric LVH, no significant valvular disease
Cath 04/17/25: GAR-LAD patent, JONO Y-graft GAR to OM with 95% distal stenosis.
Plan:
He has no further chest pain
He has known unrevascularizable CAD
already on extensive antianginal regimen including isosorbide 120 mg daily, Nitropatch 0.2 mg daily, carvedilol 3.125 mg twice daily (had been on up to 12.5 mg twice daily) Ranexa 1000 mg twice daily
Cont new low-dose of amlodipine 2.5 mg daily.
Historically medical therapy has been limited by orthostasis, follow on midodrine 5mg TID
Continue aspirin, Plavix
In sinus rhythm on review of telemetry
Will check echocardiogram and if stable will be okay for discharge.
outpatient cardiac follow-up already scheduled, has appointment on 08/07/2025 with Hillary Baird PA-C at [facility]
Justice is a 70-year-old male well-known to our service with past medical history significant for severe CAD, type 2 diabetes, orthostatic hypotension, recovered cardiomyopathy, paroxysmal atrial flutter, PAD, hypertension, hyperlipidemia, chronic
right bundle branch block. He has had multiple admissions over the past 3 months for chest pain and ruled in for non-ST elevation ID. Most recently was hospitalized 07/02/2025 - 07/05/2025 for non-ST elevation ID. He had a cardiac catheterization on
04/17/2025 with a new OM lesion but felt to be high risk for intervention and medical management was advised. We have been uptitrating antianginals and patient is currently on Ranexa 1000 mg twice daily, Nitro-Dur patch 0.2 mg daily, isosorbide
mononitrate 120 mg daily, carvedilol 3.125 mg twice daily, Plavix 75 mg daily, ASA 81 mg daily, and Atorvastatin 80 mg daily
He presented to ED early this morning with chest pain and cough. He was sitting watching TV last night when he developed a squeezing left-sided chest pain radiating to his left arm that lasted about 5 minutes. He had a similar episode earlier in
the morning that self resolved after 5 minutes. 911 was called and by the time they arrived chest pain had resolved. He also reported feeling more short of breath accompanied by a cough with white sputum and was brought to the ED.
Progress Note - Boss Miner
Subjective
Date of Service: July 16, 2025
No complaints
Objective
Labs:
07/14/25 06:44
07/15/25 06:20
Labs
Hgb 10.2 g/dL (13.0-18.0) L 07/14/25 06:44
Hct 33.5 % (39.0-52.0) L 07/14/25 06:44
Plt Count 240 10^3/uL (130-400) 07/14/25 06:44
APTT Cancelled 07/15/25 14:30
Sodium 139 mmol/L (135-145) 07/15/25 06:20
Potassium 4.5 mmol/L (3.5-5.1) 07/15/25 06:20
BUN 16 mg/dl (9-20) 07/15/25 06:20
Creatinine 0.5 mg/dL (0.7-1.3) L 07/15/25 06:20
Glucose 89 mg/dl (70-99) 07/15/25 06:20
Troponins
07/13/25 07/14/25 07/14/25
22:55 01:43 06:44
Troponin I 0.049 H* 0.127 H* D 0.195 H* D
07/14/25 07/14/25
12:40 17:27
Troponin I 0.132 H* D 0.093 H* D
Vital Signs and I&O:
Vital Signs
Temp Pulse Resp BP Pulse Ox
97.8 F 79 18 143/94 99
07/16/25 07:30 07/16/25 07:40 07/16/25 07:40 07/16/25 07:30 07/16/25 07:40
Vital Signs
Temp Pulse Resp BP Pulse Ox
97.8 F 79 18 143/94 99
07/16/25 07:30 07/16/25 07:40 07/16/25 07:40 07/16/25 07:30 07/16/25 07:40
Intake & Output
07/14/25 07/15/25 07/16/25 07/17/25
06:59 06:59 06:59 06:59
Intake Total 240 / 240 120 / 120
Output Total 475 / 475 2550 / 2550
Balance -235 / -235 -2430 / -2430
Physical Exam
Physical Exam
General: Well developed, well nourished in NAD.
Neck: Supple, no JVD, HJR, carotids +2 B/L, no bruits bilaterally.
Heart: Non displaced PMI, RRR, no murmurs, No S3, S4, no rubs.
Lungs: Scattered rhonchi
Extremities: No clubbing, cyanosis or edema bilaterally.
Neuro: Grossly nonfocal, awake, alert and oriented x3.
[2025-07-16 11:30] LABS: Glucose - Point of Care 293 mg/dl (70-99)
--- NOTE | 2025-07-16 12:33 | FALL ---
Description of Fall: Pt rang kuhn to go to bathroom, standby assist with RW to ambulate to BR. Pt sat on toilet and verbalized understanding of pulling cord when done. Pt AAOx3. RN left room for a minute and returned to check on pt to find him
laying on ground on L side. Pt remains AAox3, reports striking L shoulder and L side of head but denies pain. VSS. Pt reported he was turning to pull cord on wall and lost balance. Pt able to stand to get back on toilet with assistance and ambulated
back to chair w RW and standby assist.
Injuries Noted: None at this time.
Action Taken: notified.
Name of Provider Notified: Dr. Marley notified.
[2025-07-16] MEDS: NOVOLOG FLEXPEN-LOW RESISTANCE 3 UNITS SC (12:41)
[2025-07-16] MEDS: NOVOLOG FLEXPEN 3 UNITS SC ×2 (13:36→17:12)
--- NOTE | 2025-07-16 14:04 | W.PN.HOSP.TC ---
Today's Communication/Plan
-
X rays
PT eval tomorrow ( Fall today)
If OK DC tomorrow
Assessment / Plan
Assessment / Plan
70-year-old male who was admitted to [facility] from 07/02/2025 to 07/05/2025 with non-STEMI. Coming back with chest pain and cough. He had multiple admissions where he was not found to be a candidate for intervention for coronary disease.
Patient had a fall from toilet seat to the ground. Stated that he did not hit his head. He was trying to pull the cord and then landed on the floor
Echo 07/16/2025-basal inferoseptal segment and basal inferior segment are abnormal. LVEF mildly reduced 46%. Dense posterior mitral annular calcification. Mild concentric LVH
CVS: S1-S2 normal
Chest: CTA B/L
Abdomen: Soft, NT / Bowel sounds present
Extremities: No edema
Left hip site-no bruising noted.
Old bruises on the skin of the upper extremities no new changes. Bilateral knee exams, bilateral ankle exams pain-free at this point
# Non-STEMI/ACS
History of coronary disease with CABG
Troponin elevation with known coronary artery disease not amenable to revascularization
S/P heparin drip, now off
Continue aspirin, Plavix, statin, Coreg, Imdur, Ranexa, amlodipine added
Echo today noted.
From cardiology standpoint patient can be discharged
# Left hip hemiarthroplasty on 05/25/2025-with fall will get x-rays
# Presumed community-acquired pneumonia-CT chest with right-sided pneumonitis
COVID and influenza negative, blood cultures negative
# Chronic HFpEF-continue Lasix 20 mg Wednesday along with Coreg
# Paroxysmal atrial fibrillation-not on anticoagulation by patient choice and low burden of atrial arrhythmia. History of ablation 2018 recurrence in December 2019
# History of NSVT
# Chronic hypoxemic and hypercapnic respiratory failure (3 L O2)
Last PFTs with FEV1 percent 27% of expected, and DLCO 21% predicted
Steroid-dependent 10 mg prednisone daily
Home regimen includes prednisone, azithromycin, budesonide inhaler, DuoNebs
Continue chronic azithromycin after completion of antibiotics for pneumonia
# Diabetes hemoglobin A1c-6.3
On Lantus 7 units at bedtime and 3 units AC NovoLog at home- added Novolog back
# Hyperlipidemia-continue statin
# PAD with abdominal aortic aneurysm with endovascular AAA repair with bifemoral endarterectomy with profundoplasty 2016
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
# History of duodenal ulcer with microperforation 2018-continue PPI
# Chronic anemia
# Chronic orthostatic hypotension-limits medical management for heart disease. Continue tight compression stockings and midodrine
# Depression- Continue Wellbutrin, Ativan, Sertraline
# Sleep apnea-not on PAP machine. Only on oxygen.
# History of daily alcohol use- now abstinent
# Cognitive dysfunction
# Ex-smoker
# DVT prophylaxis-Lovenox
# DNR status
D/W Cardiology
D/W RN at bedside
D/W sister and updated regarding the fall. She stated that patient has to use a walker all the time.
Part of this note was created using voice recognition system. Occasional wrong word or��sound alike� substitutions may have inadvertently occurred due to the inherent limitations of voice recognition software. If noted kindly bring it to my
attention for correction.
Anticipated Discharge: Within 24 hours
Subjective/Interval History
-
Date of Service: July 16, 2025
Objective Data
-
Vital Signs:
Vital Signs
Temp Pulse Resp BP Pulse Ox
97.9 F 88 16 119/69 98
07/16/25 11:37 07/16/25 12:55 07/16/25 12:55 07/16/25 12:30 07/16/25 11:37
I&O
07/15/25 07/16/25 07/17/25
06:59 06:59 06:59
Intake Total 240 / 240 120 / 120
Output Total 475 / 475 2550 / 2550
Balance -235 / -235 -2430 / -2430
--- NOTE | 2025-07-16 14:43 | CM ---
CM reviewed chart, care ongoing.
Plan for patient to return to [facility], likely tomorrow.
Patient will require ambulance transport upon d.c.
Will continue to follow for all discharge planning needs.
Plan; return to [facility]
Report # [phone]
[2025-07-16] MEDS: MAXIPIME 1000 MG IV ×2 (16:34→21:21)
[2025-07-16 16:43] LABS: Glucose - Point of Care 152 mg/dl (70-99)
[2025-07-16] MEDS: LOVENOX 40 MG SC (17:12)
[2025-07-16] MEDS: NOVOLOG FLEXPEN-LOW RESISTANCE 1 UNITS SC (17:12)
[2025-07-16 21:08] LABS: Glucose - Point of Care 248 mg/dl (70-99)
[2025-07-16] MEDS: LANTUS 0.07 UNITS SC (21:20)
[2025-07-16] MEDS: MELATONIN 3 MG PO (21:20)
[2025-07-17 03:20] VITALS: BP 129/73
[2025-07-17] MEDS: STERILE WATER FOR INJECTION 10 ML IV ×3 (03:22→17:02)
[2025-07-17] MEDS: MAXIPIME 1000 MG IV ×3 (03:22→17:02)
[2025-07-17] MEDS: TYLENOL 650 MG PO (03:33)
[2025-07-17 06:00] VITALS: BMI 24.3
[2025-07-17] MEDS: PULMICORT 0.5 MG INH (07:16)
[2025-07-17 07:53] VITALS: BP 162/91
[2025-07-17 08:11] LABS: Glucose - Point of Care 110 mg/dl (70-99)
[2025-07-17] MEDS: NOVOLOG FLEXPEN-LOW RESISTANCE SC ×2 (08:12→17:02)
[2025-07-17] MEDS: NOVOLOG FLEXPEN 3 UNITS SC ×3 (08:13→17:02)
[2025-07-17] MEDS: MIRALAX 17 GRAMS PO (08:13)
[2025-07-17] MEDS: NITRO-DUR 0.2 MG TRANSDERM (08:14)
[2025-07-17] MEDS: RANEXA EXTENDED RELEASE 1000 MG PO (08:14)
[2025-07-17] MEDS: IMDUR (EXTENDED RELEASE) 120 MG PO (08:14)
[2025-07-17] MEDS: MUCINEX 600 MG PO (08:17)
[2025-07-17] MEDS: WELLBUTRIN XL (24 hour extended release) 300 MG PO (08:17)
[2025-07-17] MEDS: ZOLOFT 200 MG PO (08:17)
[2025-07-17] MEDS: ASPIR LOW (ENTERIC COATED) 81 MG PO (08:17)
[2025-07-17] MEDS: PROTONIX 40 MG PO (08:17)
[2025-07-17] MEDS: SENOKOT 17.2 MG PO (08:17)
[2025-07-17] MEDS: KCL 20 MEQ PO (08:17)
[2025-07-17] MEDS: SODIUM CHLORIDE 1 GRAM PO ×3 (08:17→17:04)
[2025-07-17] MEDS: NORVASC 2.5 MG PO (08:18)
[2025-07-17] MEDS: VIBRAMYCIN 100 MG PO (08:18)
[2025-07-17] MEDS: LASIX 20 MG PO (08:18)
[2025-07-17] MEDS: PLAVIX 75 MG PO (08:18)
[2025-07-17] MEDS: FEOSOL 325 MG PO (08:19)
[2025-07-17] MEDS: DELTASONE 10 MG PO (08:19)
[2025-07-17] MEDS: COREG 3.125 MG PO (08:19)
[2025-07-17] MEDS: LIPITOR 80 MG PO (08:19)
[2025-07-17 10:34] VITALS: BP 115/71; BP_SYST 15787; PULSE 107; O2SAT 98
[2025-07-17 10:52] VITALS: BP 115/71; BP_SYST 15787; PULSE 107; O2SAT 98
[2025-07-17 11:05] VITALS: BP 112/77
[2025-07-17 11:40] LABS: Glucose - Point of Care 196 mg/dl (70-99)
[2025-07-17] MEDS: VENTOLIN NEBULES 2.5 MG INH (13:27)
--- NOTE | 2025-07-17 14:05 | W.PN.HOSP.TC ---
Addendum entered and electronically signed by Melanie Marley MD 07/17/25 14:26:
exchange mason today before DC
Original Note:
Today's Communication/Plan
-
Discharge
Assessment / Plan
Assessment / Plan
70-year-old male who was admitted to [facility] from 07/02/2025 to 07/05/2025 with non-STEMI. Coming back with chest pain and cough. He had multiple admissions where he was not found to be a candidate for intervention for coronary disease.
Patient had a fall from toilet seat to the ground. Stated that he did not hit his head. He was trying to pull the cord and then landed on the floor
Echo 07/16/2025-basal inferoseptal segment and basal inferior segment are abnormal. LVEF mildly reduced 46%. Dense posterior mitral annular calcification. Mild concentric LVH
CVS: S1-S2 normal
Chest: CTA B/L
Abdomen: Soft, NT / Bowel sounds present
Extremities: No edema
Left hip site-no bruising noted.
# Non-STEMI/ACS
History of coronary disease with CABG
Troponin elevation with known coronary artery disease not amenable to revascularization
S/P heparin drip, now off
Continue aspirin, Plavix, statin, Coreg, Imdur, Ranexa, amlodipine added
Echo today noted.
From cardiology standpoint patient can be discharged
# Abnormal urine analysis and urine culture with Pseudomonas. Patient denied any abdominal pain. He has a chronic Mason catheter this is likely colonization. Discussed with the nursing that this needs to be exchanged if it was not already
exchanged during this hospitalization. He came in with symptoms of chest pain and not urinary symptoms or abdominal pain.
# Left hip hemiarthroplasty on 05/25/2025-with fall will get x-rays
# Presumed community-acquired pneumonia-CT chest with right-sided pneumonitis
COVID and influenza negative, blood cultures negative
Antibiotics changed to doxycycline and Ceftin
# Chronic HFpEF-continue Lasix 20 mg daily along with Coreg
# Paroxysmal atrial fibrillation-not on anticoagulation by patient choice and low burden of atrial arrhythmia. History of ablation 2018 recurrence in December 2019
# History of NSVT
# Chronic hypoxemic and hypercapnic respiratory failure (3 L O2)
Last PFTs with FEV1 percent 27% of expected, and DLCO 21% predicted
Steroid-dependent 10 mg prednisone daily
Home regimen includes prednisone, azithromycin, budesonide inhaler, DuoNebs
Continue chronic azithromycin after completion of antibiotics for pneumonia
# Diabetes hemoglobin A1c-6.3
On Lantus 7 units at bedtime and 3 units AC NovoLog at home-continue
# Hyperlipidemia-continue statin
# PAD with abdominal aortic aneurysm with endovascular AAA repair with bifemoral endarterectomy with profundoplasty 2016
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
# History of duodenal ulcer with microperforation 2018-continue PPI
# Chronic anemia
# Chronic orthostatic hypotension-limits medical management for heart disease. Continue tight compression stockings and midodrine
# Depression- Continue Wellbutrin, Ativan, Sertraline
# Sleep apnea-not on PAP machine. Only on oxygen.
# History of daily alcohol use- now abstinent
# Cognitive dysfunction
# Ex-smoker
# DVT prophylaxis-Lovenox
# DNR status
D/W Cardiology. Continue Imdur and also nitroglycerin patch
D/W RN
D/W sister and updated regarding the fall. She stated that patient has to use a walker all the time. Yesterday
Patient did well with physical therapy today
More than 30 minutes spent in discharge including
Final examination of the patient
Summarizing hospital stay
Instructions for continuing care to all relevant caregivers
Preparation of discharge records, prescriptions, and referral forms
Part of this note was created using voice recognition system. Occasional wrong word or��sound alike� substitutions may have inadvertently occurred due to the inherent limitations of voice recognition software. If noted kindly bring it to my
attention for correction.
Anticipated Discharge: Today
Subjective/Interval History
-
Date of Service: July 17, 2025
Objective Data
-
Vital Signs:
Vital Signs
Temp Pulse Resp BP Pulse Ox
97.3 F 107 17 112/77 98
07/17/25 11:05 07/17/25 13:30 07/17/25 13:30 07/17/25 11:05 07/17/25 13:30
I&O
07/16/25 07/17/25 07/18/25
06:59 06:59 06:59
Intake Total 120 / 120 760 / 760
Output Total 2550 / 2550 950 / 950 700 / 700
Balance -2430 / -2430 -190 / -190 -700 / -700
--- NOTE | 2025-07-17 14:10 | W.DS.TRANS ---
Addendum entered and electronically signed by Melanie Marley MD 07/17/25 14:45:
Dictation- [id number]
Original Note:
DC Summary - Early Childhood Specialist
-
Discharge Instructions:
Sleep Apnea Risk High
Discharge Diagnosis/Procedures Pneumonia
NSTEMI
Severe CAD
Left hip hemiarthroplasty on 05/25/2025
Chronic HFpEF
Atrial fibrillation
Diabetes
Hyperlipidemia
Peripheral artery disease
History of duodenal ulcer with microperforation
2018
Depression
Diet Diabetic, Carb Controlled,Restrict fluids to 48
oz,2 Gram Sodium
Activity As tolerated,With assistance
Driving Restrictions No driving
Bathing Restrictions None
Other Services PT,OT
Specialty Instructions Weigh Daily
Instructions:
Stand-Alone Forms:
Changes to Home Medications: Yes
Discharge Medications:
DC Medications w/original date entered in [email or web address]
atorvastatin 80 mg tablet 80 mg PO DAILY High cholesterol 07/02/23
ipratropium 0.5 mg-albuterol 3 mg (2.5 mg base)/3 mL nebulization soln 3 ml inhalation R QIDPRN PRN SOB 07/02/23
pantoprazole 40 mg tablet,delayed release 40 mg PO DAILY Gastrointestinal issue 07/02/23
prednisone 10 mg tablet 10 mg PO DAILY Anti-inflammatory #0 tabs 09/10/23
acetaminophen 325 mg tablet 650 mg PO Q4HPRN PRN mild pain/fever 12/08/24
bisacodyl 10 mg rectal suppository 10 mg AL [id number] PRN if mom ineffective 12/08/24
magnesium hydroxide 400 mg/5 mL oral suspension (Milk of Magnesia) 30 ml PO HSPRN PRN constipation 12/08/24
fluticasone propionate 50 mcg/actuation nasal spray,suspension 2 spray intranasal DAILYPRN PRN allergies 02/23/25
budesonide 0.5 mg/2 mL suspension for nebulization 0.5 mg inhalation R BID COPD 04/13/25
insulin aspart U-100 100 unit/mL (3 mL) subcutaneous pen 3 unit (0.03 mL) SC AC Diabetes #0 mL 04/16/25
ascorbic acid (vitamin C) 500 mg tablet (Vitamin C) 500 mg PO DAILY Supplement #0 tabs 04/18/25
bupropion HCl 300 mg 24 hr tablet, extended release 300 mg PO DAILY Depression #0 tabs 04/18/25
insulin glargine 100 unit/mL subcutaneous solution (Lantus U-100 Insulin) 7 unit (0.07 mL) SC HS Diabetes #0 mL 04/18/25
melatonin 3 mg tablet 3 mg PO HS Sleep #0 tabs 04/18/25
polyethylene glycol 3350 17 gram oral powder packet 17 g PO DAILY Constipation #0 ea 04/18/25
potassium chloride 20 mEq tablet,extended release(part/cryst) 20 meq PO DAILY Electrolyte Repletion #0 tabs 04/18/25
sertraline 100 mg tablet 200 mg PO DAILY depression/anxiety 05/07/25
sodium chloride 1 gram tablet 1,000 mg PO QID Supplement 05/07/25
azithromycin 250 mg tablet 250 mg PO MOWEFR COPD 05/24/25
clopidogrel 75 mg tablet 75 mg PO DAILY Blood Clot Prevention/Tx 05/25/25
ferrous sulfate 325 mg (65 mg iron) tablet 325 mg PO DAILY Supplement 06/09/25
sennosides 8.6 mg tablet (senna) 17.2 mg PO BID Constipation 06/09/25
sodium phosphates 19 gram-7 gram/118 mL enema (Fleet Enema) 118 ml AL DAILYPRN PRN if no bm aftr dulcolax 07/02/25
aspirin 81 mg tablet,delayed release 81 mg PO DAILY Blood Clot Prevention/Tx 07/14/25
naloxone 4 mg/actuation nasal spray (Narcan) 4 mg intranasal Q3M PRN opioid overdose 07/14/25
amlodipine 2.5 mg tablet 2.5 mg PO DAILY Heart disease/condition #0 tabs 07/17/25
carvedilol 3.125 mg tablet 3.125 mg PO BID Heart disease/condition 30 days #0 tabs 07/17/25
cefuroxime axetil 500 mg tablet 500 mg PO BID Lung/breathing issues #4 tabs 07/17/25
dextromethorphan-guaifenesin 30 mg-600 mg tablet extended slepvhs29 hr (Mucinex DM) 1 tab PO Q12H PRN Congestion #0 tabs 07/17/25
doxycycline hyclate 100 mg capsule 100 mg PO Q12 Lung/breathing issues #4 caps 07/17/25
furosemide 20 mg tablet 20 mg PO DAILY Fluid retention/Swelling #0 tabs 07/17/25
isosorbide mononitrate 60 mg tablet,extended release 24 hr 120 mg (2 x 60 mg) PO DAILY Heart disease/condition 30 days #60 tabs 07/17/25
lorazepam 0.5 mg tablet 0.5 mg PO TIDPRN PRN sleep/anxiety #10 tabs 07/17/25
midodrine 5 mg tablet 5 mg PO TID@0800,1300,1800 Blood pressure #90 tabs 07/17/25
nitroglycerin 0.2 mg/hr transdermal 24 hour patch 0.2 mg transdermal DAILY Heart disease/condition #0 ea 07/17/25
oxycodone 5 mg tablet 5 mg PO Q8HPRN PRN severe pain #10 tabs 07/17/25
ranolazine 500 mg tablet,extended release,12 hr 1,000 mg (2 x 500 mg) PO BID Heart disease/condition #120 tabs 07/17/25
Home Medication Changes
Norvasc is new
Doxycycline, Ceftin are new
Lasix changed to daily
Pending Results: No
[2025-07-17] MEDS: NOVOLOG FLEXPEN-LOW RESISTANCE 1 UNITS SC (14:15)
[2025-07-17 14:30] VITALS: BP 171/101
--- NOTE | 2025-07-17 14:30 | CM ---
Chart reviewed. Per hospitalist, patient will d/c today. Patient is a LTC resident at [facility].
Spoke w/ Musa/[facility] sandi, will accept patient back today. CM made Musa aware patient will need some rehab/therapy upon return. Musa stated patient was current w/ therapy prior to admitting to hospital and will resume when he returns.
Met w/ patient bedside, IMM verbally reviewed, copy provided, copy on chart
Patient will require ambulance transport for O2 needs. Transport forms on chart
[facility]- [facility]
Report: [phone]---> Nursing supervisor car and yard

Plan: Return to [facility] today
--- NOTE | 2025-07-17 14:40 | W.PN.CARDCBS ---
Addendum entered and electronically signed by Kris Rojo MD 07/17/25 14:56:
I saw and examined the patient.
The SAFETY PATROL OFFICER or PA's note was reviewed and I agree with the note.
Comment: General: Well developed, well nourished in NAD.
Neck: Supple, no JVD, HJR, carotids +2 B/L, no bruits bilaterally.
Heart: Non displaced PMI, RRR, no murmurs, No S3, S4, no rubs.
Lungs: Clear to auscultation bilaterally, no wheeze, rhonchi, rubs bilaterally,
normal expiratory phase.
Extremities: No clubbing, cyanosis or edema bilaterally.
Neuro: Grossly nonfocal, awake, alert and oriented x3.
Stable cardiology status for discharge. Follow-up arranged. Discussed with primary service.
Original Note:
Today's Communication / Plan
-
no further CP
continue antianginal regimen
OP cardiac follow up arranged
Impression / Plan
-
Primary Sales Training Manager: Dr. MILA Woo
Impression:
Admitted with recurrent chest pain and elevated Troponin 07/13/2025
CAD
s/p CABG 1998 [facility] with GAR to LAD and free JONO Y graft from GAR to OM
cath showed progression of [place] CAD however patient bypass grafts 12/2019
cath 03/2025 with new OM lesion, felt to be high risk for intervention, medically managed
NSTEMI 05/26/25
NSTEMI 07/02/2025
History of recovered ischemic cardiomyopathy, EF 50 to 55% by echo 11/2024, EF 50% Echo 02/23/2025
Chronic HFpEF
h/o NSVT
Chronic orthostatic hypotension
Sinus tachycardia
Paroxysmal atrial flutter
s/p ablation in 2018Paroxysmal atrial fibrillation
diagnosed during 12/2019 admission without known recurrence
Not chronically anticoagulated due to patient's choice and low burden of atrial arrhythmia
PVD
h/o endovascular AAA repair and bilateral femoral artery endarterectomy and profundoplasty 07/2018
Type 2 diabetes
Hypertension
Hypercholesterolemia
Chronic right bundle-branch block
COPD on chronic supp O2, 3L
History of duodenal ulcer with microperforation in 2018
h/o daily ETOH use now abstinent
Former smoker
h/o fall and hip fracture plus NSTEMI 05/24/2025 until 05/31/2025
DNR
ECHO 09/06/23: Definity used, EF 45 to 50%, global hypokinesis, stage I diastolic dysfunction, mild MR, trace TR, PAP 25 to 30 mmHg
Echo 12/11/2024: EF 50 to 55%, no regional wall motion abnormalities, mild concentric LVH, no significant valvular disease
Echo 02/23/2025: EF 50%, mild to moderate concentric LVH, no significant valvular disease
Cath 04/17/25: GAR-LAD patent, JONO Y-graft GAR to OM with 95% distal stenosis.
Echo 07/16/2025: EF 46% with basal inferoseptal and basal inferior segments abnormal, compared to last echo from 02/2025, no significant changes noted
Plan:
- Difficult situation as he has no nonrevascularizable CAD, and has had multiple admissions over the last several months for chest discomfort with attempts at up titration of antianginal therapy
- Currently on imdur 120 mg daily, Nitropatch 0.2 mg daily, Coreg 3.125 mg twice daily, Ranexa 1000 mg twice daily. Started on Norvasc 2.5 mg daily this admission
- No further chest pain overnight
- Had a fall overnight where he states he slipped in the bathroom from toilet seat to the ground. Denies injuries from this. Historically medical therapy has been limited by orthostasis, follow on midodrine 5mg TID
- Continue aspirin, Plavix, statin
- Echo with results as above
- outpatient cardiac follow-up already scheduled, has appointment on 08/07/2025 with Hillary Baird PA-C at [facility] office
- plans for MS today noted
- We did discuss, at some point we will optimize medical therapy as best we can and have no additional agents to offer him for chest pain. At that point we will need to transition our efforts to making patient comfortable and giving him best
quality of life weekend. He reports he understands this
Justice is a 70-year-old male well-known to our service with past medical history significant for severe CAD, type 2 diabetes, orthostatic hypotension, recovered cardiomyopathy, paroxysmal atrial flutter, PAD, hypertension, hyperlipidemia, chronic
right bundle branch block. He has had multiple admissions over the past 3 months for chest pain and ruled in for non-ST elevation CO. Most recently was hospitalized 07/02/2025 - 07/05/2025 for non-ST elevation CO. He had a cardiac catheterization on
04/17/2025 with a new OM lesion but felt to be high risk for intervention and medical management was advised. We have been uptitrating antianginals and patient is currently on Ranexa 1000 mg twice daily, Nitro-Dur patch 0.2 mg daily, isosorbide
mononitrate 120 mg daily, carvedilol 3.125 mg twice daily, Plavix 75 mg daily, ASA 81 mg daily, and Atorvastatin 80 mg daily
He presented to ED early this morning with chest pain and cough. He was sitting watching TV last night when he developed a squeezing left-sided chest pain radiating to his left arm that lasted about 5 minutes. He had a similar episode earlier in
the morning that self resolved after 5 minutes. 911 was called and by the time they arrived chest pain had resolved. He also reported feeling more short of breath accompanied by a cough with white sputum and was brought to the ED.
Progress Note - Sales Training Manager
Subjective
Date of Service: July 17, 2025
No chest pain overnight. Denies dizziness or lightheadedness
Objective
Labs:
07/14/25 06:44
07/15/25 06:20
Labs
Hgb 10.2 g/dL (13.0-18.0) L 07/14/25 06:44
Hct 33.5 % (39.0-52.0) L 07/14/25 06:44
Plt Count 240 10^3/uL (130-400) 07/14/25 06:44
APTT Cancelled 07/15/25 14:30
Sodium 139 mmol/L (135-145) 07/15/25 06:20
Potassium 4.5 mmol/L (3.5-5.1) 07/15/25 06:20
BUN 16 mg/dl (9-20) 07/15/25 06:20
Creatinine 0.5 mg/dL (0.7-1.3) L 07/15/25 06:20
Glucose 89 mg/dl (70-99) 07/15/25 06:20
Troponins
07/14/25
17:27
Troponin I 0.093 H* D
Vital Signs and I&O:
Vital Signs
Temp Pulse Resp BP Pulse Ox
98.0 F 108 20 171/101 97
07/17/25 14:30 07/17/25 14:30 07/17/25 14:30 07/17/25 14:30 07/17/25 14:30
Vital Signs
Temp Pulse Resp BP Pulse Ox
98.0 F 108 20 171/101 97
07/17/25 14:30 07/17/25 14:30 07/17/25 14:30 07/17/25 14:30 07/17/25 14:30
Intake & Output
07/15/25 07/16/25 07/17/25 07/18/25
07:59 07:59 07:59 07:59
Intake Total 240 / 240 120 / 120 760 / 760
Output Total 475 / 475 2550 / 2550 950 / 950 700 / 700
Balance -235 / -235 -2430 / -2430 -190 / -190 -700 / -700
Physical Exam
Physical Exam
GEN: No distress, awake, alert, oriented x3. on supp O2
HEENT: supple, anicteric, mmm, eomi
LUNGS: CTA B/L, no wheezes/rales
CV: Reg, S1/S2, no murmur
ABD: soft, BS+, NT/ND
EXT: No cyanosis, clubbing, edema
NEURO: Gross non-focal
SKIN: Warm, pink, dry. No rash. Ecchymoses of B/L UE
--- NOTE | 2025-07-17 14:55 | PTCARENOTE ---
Mason exchanged as per Dr Marley request. 16 F mason 10cc balloon inserted without difficulty , Draining yellow urine. Tolerated procedure well
[2025-07-17 16:58] LABS: Glucose - Point of Care 110 mg/dl (70-99)
[2025-07-17] MEDS: LOVENOX 40 MG SC (17:01)
== END 2025-07-17 18:06 | DRG 280 ==
LOC: 4 WEST ACU 04:19
PROVIDERS: Emergency Medicine; Hospitalist; ADMITTING PHYSICIAN Hospitalist; ATTENDING PHYSICIAN Hospitalist; EMERGENCY PHYSICIAN Emergency Medicine; FAMILY PHYSICIAN Student in an Organized Health Care Education/Training Program; OTHER PHYSICIAN Nuclear Medicine Nuclear Cardiology
DX: I21.4 Non-ST elevation (NSTEMI) myocardial infarction (principal); J18.9 Pneumonia, unspecified organism; I48.92 Unspecified atrial flutter; I50.32 Chronic diastolic (congestive) heart failure; J44.0 Chronic obstructive pulmonary disease with (acute) lower respiratory infection; J96.11 Chronic respiratory failure with hypoxia; N39.0 Urinary tract infection, site not specified; J96.12 Chronic respiratory failure with hypercapnia; I22.2 Subsequent non-ST elevation (NSTEMI) myocardial infarction; I48.0 Paroxysmal atrial fibrillation; E11.9 Type 2 diabetes mellitus without complications; I25.10 Atherosclerotic heart disease of native coronary artery without angina pectoris; I71.40 Abdominal aortic aneurysm, without rupture, unspecified; K26.9 Duodenal ulcer, unspecified as acute or chronic, without hemorrhage or perforation; Z66 Do not resuscitate; I11.0 Hypertensive heart disease with heart failure; I95.1 Orthostatic hypotension; K21.9 Gastro-esophageal reflux disease without esophagitis; D64.9 Anemia, unspecified; E78.00 Pure hypercholesterolemia, unspecified; F41.9 Anxiety disorder, unspecified; I45.10 Unspecified right bundle-branch block; G47.30 Sleep apnea, unspecified; E11.51 Type 2 diabetes mellitus with diabetic peripheral angiopathy without gangrene; J98.4 Other disorders of lung; F32.A Depression, unspecified; N40.0 Benign prostatic hyperplasia without lower urinary tract symptoms; I25.2 Old myocardial infarction; Z11.52 Encounter for screening for COVID-19; Z79.02 Long term (current) use of antithrombotics/antiplatelets; Z99.81 Dependence on supplemental oxygen; Z79.899 Other long term (current) drug therapy; Z79.4 Long term (current) use of insulin; Z79.52 Long term (current) use of systemic steroids; Z79.82 Long term (current) use of aspirin; Z87.11 Personal history of peptic ulcer disease; Z87.891 Personal history of nicotine dependence
CPT/HCPCS: 71275; 73502; 80048; 80053; 81003; 81015; 82962; 83605; 83880; 84484; 85025; 85027; 85730; 87040; 87070; 87077; 87086; 87186; 87502; 87811; 93005; 93308; 93321; 93325; 94640; 96365; 97162; 97166; 97530; 97535; 99285; Q9950; Q9967

== ENCOUNTER 2025-08-08 08:59 | Emergency (ER) | payer MEDICARE, OTHER, SELFPAY ==
[2025-08-08 09:00] VITALS: BMI 23.9
[2025-08-08 09:01] VITALS: BP 110/80
[2025-08-08 09:04] VITALS: BP 110/80
[2025-08-08 09:13] LABS: Hematocrit 39.9 % (39.0-52.0); Hemoglobin 12.3 g/dL (13.0-18.0); Mean Corp Hgb Conc. 30.8 g/dL (33.0-37.0); Mean Corpuscular Volume 94.8 fL (80.0-94.0); Nucleated Red Blood Cells % 0 % (-); Platelet Count 201 10^3/uL (130-400); Red Cell Dist. Width 14.5 % (11.5-14.5)
--- NOTE | 2025-08-08 09:16 | ED.GENMED ---
History of Present Illness
General
Chief Complaint: Chest Pain
Source: patient and intensive care anaesthetist
Exam Limitations: other (autism)
Time Seen by Provider: 08/08/25 09:02
Nursing documentation reviewed up to this point in time: agreed with
History of Present Illness
History of Present Illness:
Patient with history of CAD, presents ED secondary to sudden onset of chest pain while lying in bed this morning. Chest pain described as dull, nonradiating, without any alleviating or exacerbating factors. Chest pain lasted approximately 30
minutes with spontaneous resolution. At the time of evaluation ED, patient states that he is without any chest pain. Denies recent change in medications or diet. Denies recent illness. Denies back pain. Denies leg pain or swelling. Denies
associated shortness of breath, nausea, or diaphoresis.
Past History
Past History
ED Past Medical History: Arrthythmia (Atrial fib), CAD, CHF, COPD, GERD, HTN, Hypercholesterolemia, IDDM, MA (Non-STEMI December 2019), Valvular disease and Other (Back pain, Headaches, Sleep apnea, IBS, Pancreatitis, Ulcers, Gastritis, Anemia, )
ED Past Surgical History: Cardiac (CABG, PTCA with stent), Cholecystectomy (January 2016), Orthopedic (Right wrist surgery), Tonsilectomy and Other (hernia repair, endovascular AAA with bilateral femoral endarterectomy and profundoplasty 07/2018)
Social History
Tobacco: Former smoker
Alcohol: Former
Drug: None
Personal: Single
Living: retirement
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
Family History
Family History: Hypertension
Review of Systems
Review of Systems
Allergies reviewed?: Yes
Unable to obtain full review of systems at this time due to: other (autism)
All Other Systems: Not applicable
Phy Exam
Physical Exam
Physical Exam:
Physical Exam
General: no apparent distress, not acutely ill. afebrile
Head: nc/at. eomi
Neck: supple. no jvd
Heart: s1/s2 regular rate and rhythm
Lungs: no acute respiratory distress. clear bilaterally
Abdomen: normal bowel sounds. not tender.
Neuro: alert and oriented x 3. no focal neurological deficits
Skin: no rash
Psychiatric: well kept. interactive and cooperative
Extremities: no edema. no calf tenderness.
Scores
Heart Score for Chest Pain Patients
STEMI patient?: No
History: Slightly or Non-Suspicious
ECG: Normal
Age: >/= 65 years
Risk Factors: >/= 3 Risk Factors or History of CAD
Troponin: </= Normal Limit
Heart Score for Chest Pain Patients: 4
Heart Score Risk: 20.3% MACE over next 6 weeks
Course
Orders/Labs/Results
Orders:
Orders
08/08/25 09:00
Electrocardiogram (*1) Urgent
Reason for Study: Chest Pain
EKG- Treatment ONCE
IV Insert/Care/Rem.- Treatment PRN
O2 Therapy [RESP] Urgent
Titrate/Wean O2 to maintain O2 sat greater than (%): 90
Special Instructions: Maintain sats >/=90%
08/08/25 09:05
CXR [CR Chest Portable - 1 View] Urgent
Comment:
Reason For Exam: c.p.
Reason Study Needs to be Portable: Unable to Transport
08/08/25 09:07
Complete Blood Count/With Diff Urgent
Comprehensive Metabolic Panel Urgent
Troponin I Urgent
08/08/25 10:55
D-Dimer Urgent
08/08/25 11:25
CT Chest PE Study Urgent
Comment:
Reason For Exam: cp with elevated d-dimer
Abnormal Lab Results
08/08/25 08/08/25
09:07 10:55
RBC 4.21 L 10^6/uL
(4.70-6.10)
Hgb 12.3 L g/dL
(13.0-18.0)
MCV 94.8 H fL
(80.0-94.0)
MCHC 30.8 L g/dL
(33.0-37.0)
Abs Immat Gran (auto) 0.1 H 10^3/uL
(0-0.05)
Absolute Neuts (auto) 6.6 H 10^3/uL
(1.4-6.5)
Absolute Lymphs (auto) 0.7 L 10^3/uL
(1.2-3.4)
Absolute Monos (auto) 1.0 H 10^3/uL
(0.1-0.6)
Immature Gran % 0.8 H %
(0-0.5)
Neutrophils % 75.8 H %
(42.2-75.2)
Lymphocytes % 8.2 L %
(20.5-51.1)
Monocytes % 11.3 H %
(1.7-9.3)
D-Dimer 1.52 H ug/mlFEU
(0.00-0.50)
Carbon Dioxide 31 H mmol/L
(22-30)
Creatinine 0.5 L mg/dL
(0.7-1.3)
Glucose 130 H mg/dl
(70-99)
Troponin I 0.047 H* ng/ml
08/08/25 09:07
08/08/25 09:07
Vital Signs
Initial and Last Documented VS:
Initial Vital Signs
Temp Pulse Resp BP Pulse Ox
97.6 F 84 21 110/80 92
08/08/25 09:01 08/08/25 09:01 08/08/25 09:01 08/08/25 09:01 08/08/25 09:01
Last Documented Vital Signs
Temp Pulse Resp BP Pulse Ox
97.6 F 89 21 102/69 93
08/08/25 09:01 08/08/25 14:15 08/08/25 14:15 08/08/25 11:00 08/08/25 14:15
MDM/Problems Addressed
MDM/Problems Addressed:
Patient remains chest pain-free throughout duration in ED. Initial troponin, mildly elevated, lower than his previous troponin level.
Discussed with on-call cardiology, Dr. Cruz, who reviewed the patient's previous admission and records. At this time, patient is not a candidate for any acute cardiac intervention, but recommends continue optimization medically. Unfortunately,
patient's cardiac medications, including Imdur, is currently at its maximal dose.
D-dimer elevated. Will check CT PE study.
CT chest report reviewed and discussed with patient. As patient remained chest pain-free, patient will be discharged back to retirement for continual care. Patient feels comfortable with treatment plan.
*Pulse Oximetry
SaO2: 92
Nasal Cannula flow liters per minute: 3
Patient hypoxic: no
*EKG
Interpreted by ED Provider?: Yes
EKG Intrepretation Date: 08/08/25
Heart Rate: 91
Rate: normal
Rhythm: sinus
[place]: normal axis
Interval: normal interval
QRS Pattern: right bundle branch block
Ischemia: T-wave inversion
*Critical Care Note
Total Time (30-74mins, 75-104mins- exclusive of procedures): Not Applicable
ED Attending Note
-
Portions of this chart may have been created with voice recognition software.� Occasional wrong word or��sound alike� substitutions may have occurred due to the inherent limitations of voice recognition software.
Discharge Plan
Departure
Patient Disposition: Fdc/SNF
Date of Disposition: 08/08/25
Time of Disposition: 13:09
Discharge Problem:
Chronic stable angina
Instructions: Chest pain (DC)
Prescriptions:
No Action
ipratropium-albuterol 0.5 mg-3 mg(2.5 mg base)/3 mL Solution For Nebulization
3 ml INHALATION R QIDPRN PRN (Reason: SOB)
atorvastatin 80 MG tablet
80 mg PO DAILY
pantoprazole 40 MG tablet,delayed release (DR/EC)
40 mg PO DAILY
prednisone 10 MG tablet
10 mg PO DAILY Qty: 0 0RF
acetaminophen 325 mg Tablet
650 mg PO Q4HPRN PRN (Reason: mild pain/fever)
magnesium hydroxide [Milk of Magnesia] 400 mg/5 mL Suspension
30 ml PO HSPRN PRN (Reason: constipation)
bisacodyl 10 mg Suppository
10 mg VT [id number] PRN (Reason: if mom ineffective)
fluticasone propionate 50 mcg/actuation [place],Suspension
2 spray INTRANASAL DAILYPRN PRN (Reason: allergies)
budesonide 0.5 mg/2 mL suspension for nebulization
0.5 mg inhalation R BID
insulin aspart U-100 100 unit/mL (3 mL) Insulin Pen
3 unit SC AC Qty: 0 0RF
polyethylene glycol 3350 17 gram Powder In Packet
17 g PO DAILY Qty: 0 0RF
insulin glargine [Lantus U-100 Insulin] 100 unit/mL solution
7 unit SC HS Qty: 0 0RF
melatonin 3 mg Tablet
3 mg PO HS Qty: 0 0RF
potassium chloride 20 mEq tablet,ER particles/crystals
20 meq PO DAILY Qty: 0 0RF
ascorbic acid (vitamin C) [Vitamin C] 500 mg tablet
500 mg PO DAILY Qty: 0 0RF
bupropion HCl 300 mg tablet extended release 24 hr
300 mg PO DAILY Qty: 0 0RF
sertraline 100 mg Tablet
200 mg PO DAILY
sodium chloride 1 gram Tablet
1,000 mg PO QID
azithromycin 250 MG tablet
250 mg PO MOWEFR@0800
clopidogrel 75 mg tablet
75 mg PO DAILY
sennosides [senna] 8.6 mg Tablet
17.2 mg PO BID
ferrous sulfate 325 mg (65 mg iron) Tablet
325 mg PO DAILY
Fleet Enema 19-7 gram/118 mL Enema
118 ml VT DAILYPRN PRN (Reason: if no bm aftr dulcolax)
aspirin 81 mg Tablet,Delayed Release (Dr/Ec)
81 mg PO DAILY
naloxone [Narcan] 4 mg/actuation [place],Non-Aerosol
4 mg INTRANASAL Q3M PRN (Reason: opioid overdose)
amlodipine 2.5 mg Tablet
2.5 mg PO DAILY Qty: 0 0RF
lorazepam 0.5 mg Tablet
0.5 mg PO TIDPRN PRN (Reason: sleep/anxiety) Qty: 10 0RF
nitroglycerin 0.2 mg/hr Patch 24 Hour
0.2 mg transdermal DAILY Qty: 0 0RF
carvedilol 3.125 mg Tablet
3.125 mg PO BID 30 Days Qty: 0 0RF
isosorbide mononitrate 60 mg Tablet Extended Release 24 Hr
120 mg PO DAILY 30 Days Qty: 60 0RF
furosemide 20 mg Tablet
20 mg PO DAILY Qty: 0 0RF
ranolazine 500 mg Tablet Extended Release 12 Hr
1,000 mg PO BID Qty: 120 0RF
Guaifenesin DM 30-600 mg Tablet Extended Release 12 Hr
1 tab PO Q12
lorazepam 0.5 mg tablet
0.5 mg PO DAILY
oxycodone 5 mg tablet
5 mg PO [id number] PRN (Reason: severe pain)
Referrals:
UNKNOWN - PT NOT,INTERVIEWE [Family Provider]
Activity Restrictions/Additional Instructions:
As discussed, please follow-up with your primary care physician and/or carpenter streetcar with any further concerns. Please consider return to ED with recurrent chest pain, if not relieved with medications provided.
Interventions
Interventions:
*Risk Screen - Suicide Last Done: 08/08/25 09:01
*General Assessment Last Done: 08/08/25 16:15
*Neglect/Abuse Screening Last Done: 08/08/25 09:05
*ED COVID-19 Vaccine History Last Done: 08/08/25 09:01
*ED Influenza Vaccine History Last Done: 08/08/25 09:01
*Nursing Disposition Last Done: 08/08/25 16:15
ED- Cardiac Assessment Last Done: 08/08/25 09:13
Discharge Date and Time
Discharge Date/Time: 08/08/25 16:18
Print Language: [place]
[2025-08-08 09:34] LABS: ALT (SGPT) 18 U/L (0-50); AST (SGOT) 22 U/L (17-59); Albumin 3.8 g/dl (3.5-5.0); Alkaline Phosphatase 64 U/L (38-126); Blood Urea Nitrogen 11 mg/dl (9-20); Calcium 9.0 mg/dl (8.4-10.2); Carbon Dioxide 31 mmol/L (22-30); Chloride 105 mmol/L (98-107); Estimated Creatinine Clearance 109 ml/min; Glucose 130 mg/dl (70-99); Potassium 4.4 mmol/L (3.5-5.1); Sodium 142 mmol/L (135-145); Total Protein 6.3 g/dl (6.3-8.2); eGFR > 60.00
[2025-08-08 09:42] LABS: Troponin I 0.047 ng/ml
[2025-08-08 10:31] VITALS: BP 105/71
[2025-08-08 11:00] VITALS: BP 102/69
[2025-08-08 11:17] LABS: D-Dimer 1.52 ug/mlFEU (0.00-0.50)
== END 2025-08-08 16:18 ==
LOC: EMR 08:59
PROVIDERS: EMERGENCY PHYSICIAN Emergency Medicine
DX: I25.118 Atherosclerotic heart disease of native coronary artery with other forms of angina pectoris (principal); E11.9 Type 2 diabetes mellitus without complications; E78.00 Pure hypercholesterolemia, unspecified; F84.0 Autistic disorder; G47.30 Sleep apnea, unspecified; I11.0 Hypertensive heart disease with heart failure; I50.9 Heart failure, unspecified; I25.2 Old myocardial infarction; I48.91 Unspecified atrial fibrillation; J44.9 Chronic obstructive pulmonary disease, unspecified; Z87.891 Personal history of nicotine dependence; Z95.1 Presence of aortocoronary bypass graft; Z95.5 Presence of coronary angioplasty implant and graft; Z98.890 Other specified postprocedural states
CPT/HCPCS: 99285; 71045; 71275; 80053; 84484; 85025; 85379; 93005; Q9967